=== PATIENT | female | born 1945 | race Caucasian/White ===

== ENCOUNTER 2016-08-12 16:40 | Emergency (ER) | payer OTHER ==
[~2016-08-12] VITALS: Ht 162.6 cm; Wt 99.6 kg
[~2016-08-12 16:40] MED LIST: ATEN25TA PO; OMEP20CA59 PO; WARF1TAB6 PO
[2016-08-12 16:46] VITALS: TEMP 36.7; Ht 162.6 cm; Wt 99.6 kg
--- NOTE | 2016-08-12 17:47 | DIAGNOSTIC IMAGING REPORT ---
HEAD CT NONCONTRAST CT DOSE: 537.48 mGy.cm HISTORY: Fall. Head laceration. eval for bleed TECHNIQUE: Multiaxial CT images of the head were performed without the use of intravenous contrast. Automated exposure control was utilized for this study. Comparison: None. Findings: The paranasal sinuses and mastoid air cells are clear. The calvarium and skull base are intact. There is no mass, hematoma, midline shift, acute infarct. White matter hypodensity is nonspecific but suggestive of microvascular ischemic change. The ventricles and sulci demonstrate mild age-related involutional changes. Right lateral scalp swelling with a small laceration. Impression: No acute intracranial abnormality. Right lateral scalp swelling with a small laceration. Electronically signed by: Dl Bey M.D. 08/12/2016 5:46 PM Dictated Date/Time: 08/12/2016 5:43 PM
[2016-08-12] MEDS ORDERED: LIDO/EPINEPHRINE/SOD BICARB 20 ML VIAL INFIL ONE (18:08)
[2016-08-12] MEDS ORDERED: XYLOCAINE 1%/SOD BICARB 20 ML VIAL INFIL ONE (18:15)
[2016-08-12 18:17] LABS: INR 1.8 (0.9-1.1); PROTHROMBIN TIME (PATIENT) 19.9 SECONDS (9.0-12.0)
[2016-08-12 18:25] LABS: HEMATOCRIT 40.6 % (37-47); MEAN CELL VOLUME 94.9 fL (80-100); MEAN CORPUSCULAR HEMOGLOBIN 33.2 pg (25-34); MEAN PLATELET VOLUME 10.9 fL (7.4-10.4); PLATELET COUNT 93 K/uL (130-400); RED BLOOD COUNT 4.28 M/uL (4.2-5.4); WHITE BLOOD COUNT 6.11 K/uL (4.8-10.8)
[2016-08-12 18:27] LABS: BASO % 0.3 %; BASO ABS # 0.02 K/uL (0-0.2); COMPLETE YES; EOS % 0.2 %; IG% 0.3 %; LYMPH % 16.7 %; LYMPH ABS # 1.02 K/uL (1.2-3.4); MONO % 10.6 %; NEUT % 71.9 %; PLT ESTIMATE DECREASED
--- NOTE | 2016-08-12 18:27 | EMERGENCY ROOM VISIT NOTE ---
ED Visit Note I was asked by Dr. Pierce to repair a laceration to the scalp. The laceration is approximately 5 cm in length. Using sterile technique the wound was cleaned with Betadine. The area was sterilely draped. 6 ml of 1% buffered lidocaine with epinephrine was used to anesthetize the scalp. Once the patient was numb, the wound was copiously irrigated under pressure with sterile saline. The wound was explored and there were no deep structures such as tendons, bone, or ligaments present. The laceration was repaired using 7 abby with the wound edges being well approximated. The patient tolerated the procedure well. The bleeding stopped.
[2016-08-12 19:42] VITALS: BP 161/74; PULSE 65; O2SAT 98
--- NOTE | 2016-08-12 23:24 | EMERGENCY ROOM VISIT NOTE ---
History Report prepared by Ashwini: Katharine Roman Under the Supervision of: Dr. Brian Dawson M.D. 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 She slipped on the ice on her front porch. She fell forward and hit the right side of her head on the porch railing. The patient denies LOC. She is currently complaining of a headache. She rates her pain as a 7/10. She has a laceration to her head that has been actively bleeding. 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 The patient denies any other injury from her fall. She denies nausea, vomiting, numbness, weakness, and dizziness. She denies hip pain, back pain, and neck pain. Her tetanus is up to date. Source of History: patient Onset: 1 hour PREFABRICATOR Position: other (global - fall) Symptom Intensity: 7/10 Headache Timing: other (episode) Associated Symptoms: + headache, No LOC, No back pain, No nausea, No neck pain, No numbness, No vomiting, No weakness Review of Systems See HPI for pertinent positives & negatives. A total of 10 systems reviewed and were otherwise negative. Past Medical & Surgical Medical Problems: (1) Hypertension Family History Hypertension Social History Smoking Status: Never Smoker Alcohol Use: none Drug Use: none Housing Status: lives with family Occupation Status: employed Current/Historical Medications Scheduled Atenolol (Tenormin), 25 MG PO DAILY Omeprazole (Prilosec), 20 MG PO DAILY Warfarin Sod (Jantoven), 3 MG PO DAILY Allergies Coded Allergies: Penicillins (Verified Allergy, Severe, UNKNOWN, 08/12/16) Aspirin (Verified Allergy, Intermediate, HIVES, 08/12/16) Uncoded Allergies: BEE STINGS (Allergy, Intermediate, ANAPHYLAXIS, 05/15/15) Physical Exam Vital Signs Date Time Temp Pulse Resp B/P Pulse Ox O2 Delivery O2 Flow Rate FiO2 08/12/16 19:42 65 16 161/74 98 Room Air 08/12/16 16:46 36.7 93 18 162/81 96 Room Air Physical Exam Constitutional: Vital signs reviewed. Eyes: Pupils are equal round reactive to light. Conjunctiva are noninjected. ENT: Pharynx is clear without erythema or exudate. Mucous membranes are moist. Neck supple without meningeal signs. No midline tenderness to cervical spine. Respiratory: Clear to auscultation bilaterally. Breath sounds are equal bilaterally. Cardiovascular: Regular rate and rhythm. No rubs or gallops. GI: Soft, nondistended and nontender. Bowel sounds are present. Musculoskeletal: No hip or extremity tenderness. Integumentary: 5 cm laceration to the right scalp with hematoma. Neurological: The patient is awake and alert. Cranial nerves II-XII are intact. Motor is 5 out of 5 all extremities. Sensation is intact to light touch all extremities. Normal speech. No pronator drift. Psychiatric: Normal affect. Medical Decision & Procedures ER Provider Diagnostic Interpretation: Radiology results as stated below per my review and the radiologist's interpretation: HEAD CT NONCONTRAST CT DOSE: 537.48 mGy.cm HISTORY: Fall. Head laceration. eval for bleed TECHNIQUE: Multiaxial CT images of the head were performed without the use of intravenous contrast. Automated exposure control was utilized for this study. Comparison: None. Findings: The paranasal sinuses and mastoid air cells are clear. The calvarium and skull base are intact. There is no mass, hematoma, midline shift, acute infarct. White matter hypodensity is nonspecific but suggestive of microvascular ischemic change. The ventricles and sulci demonstrate mild age-related involutional changes. Right lateral scalp swelling with a small laceration. Impression: No acute intracranial abnormality. Right lateral scalp swelling with a small laceration. Electronically signed by: Dl Bey M.D. 08/12/2016 5:46 PM Dictated Date/Time: 08/12/2016 5:43 PM Laboratory Results 08/12/16 17:58 Red Blood Count 4.28, Mean Corpuscular Volume 94.9, Mean Corpuscular Hemoglobin 33.2, Mean Corpuscular Hemoglobin Concent 35.0, Mean Platelet Volume 10.9, Neutrophils (%) (Auto) 71.9, Lymphocytes (%) (Auto) 16.7, Monocytes (%) (Auto) 10.6, Eosinophils (%) (Auto) 0.2, Basophils (%) (Auto) 0.3, Neutrophils # (Auto ) 4.39, Lymphocytes # (Auto) 1.02, Monocytes # (Auto) 0.65, Eosinophils # (Auto ) 0.01, Basophils # (Auto) 0.02 Test 08/12/16 17:58 White Blood Count 6.11 K/uL (4.8-10.8) Red Blood Count 4.28 M/uL (4.2-5.4) Hemoglobin 14.2 g/dL (12.0-16.0) Hematocrit 40.6 % (37-47) Mean Corpuscular Volume 94.9 fL (80-100) Mean Corpuscular Hemoglobin 33.2 pg (25-34) Mean Corpuscular Hemoglobin Concent 35.0 g/dl (32-36) Platelet Count 93 K/uL (130-400) Mean Platelet Volume 10.9 fL (7.4-10.4) Neutrophils (%) (Auto) 71.9 % Lymphocytes (%) (Auto) 16.7 % Monocytes (%) (Auto) 10.6 % Eosinophils (%) (Auto) 0.2 % Basophils (%) (Auto) 0.3 % Neutrophils # (Auto) 4.39 K/uL (1.4-6.5) Lymphocytes # (Auto) 1.02 K/uL (1.2-3.4) Monocytes # (Auto) 0.65 K/uL (0.11-0.59) Eosinophils # (Auto) 0.01 K/uL (0-0.5) Basophils # (Auto) 0.02 K/uL (0-0.2) RDW Standard Deviation 47.5 fL (36.4-46.3) RDW Coefficient of Variation 13.9 % (11.5-14.5) Immature Granulocyte % (Auto) 0.3 % Immature Granulocyte # (Auto) 0.02 K/uL (0.00-0.02) Platelet Estimate DECREASED Prothrombin Time 19.9 SECONDS (9.0-12.0) Prothromb Time International Ratio 1.8 (0.9-1.1) Laboratory results as reviewed by me. Medications Administered Medications (Trade) Dose Ordered Sig/Paolo Route Start Time Stop Time Status Last Admin Dose Admin Lidocaine/ Epinephrine (Buffered Xylocaine/ Epinephrine 1% Inj) 20 ml STK-MED ONCE INFIL 08/12/16 18:08 08/12/16 18:09 DC 08/12/16 18:08 20 ML ED Course 170: The patient was evaluated in room A10 . A complete history and physical exam was performed. 180: I updated the patient and her family on the results. 1814: Lidocaine HCl - At this time Rosalinda Pérez PA-C, repaired the patient' s laceration. Please see her note for further details. 183: I reassessed the patient at this time. She is feeling better and resting comfortably. I discussed the results and treatment plan with the patient. I answered all pertaining questions that she had. She expressed understanding and verbalized agreement. The patient will be discharged home. 1927: The patient got up for discharge and became dizzy. I reassessed her and sat her up in the bed. She is drinking Gatorade and feeling better. We will observe her for 10-15 minutes before discharge. Medical Decision This is a 70-year-old female on Coumadin presenting after a head injury. Differential diagnosis includes intracranial hemorrhage, skull fracture, contusion, concussion, scalp laceration. I did perform a limited focused review of portions of the patient's old chart on the electronic medical record. The patient has had no recent pertinent visits to this hospital. I did evaluate the patient as noted above. The patient had a mechanical fall leading to a head injury. She is neurologically intact. She has no other injuries other than her head injury. I did order a CT of the head. I did review the images myself as well as the radiology report as described above. There is no evidence of intracranial hemorrhage. Her laceration was repaired by JOSÉ Pérez. Please see her note for further details. I did order and review the patient's blood work as noted in the electronic medical record. Her INR is 1.8. Hemoglobin is stable. I did discuss the test results with the patient. She was given return instructions and head injury precautions. She was advised follow up with her doctor. She was discharged in good condition. She did feel lightheaded upon standing and so we did set her up in bed and she drank some Gatorade. She did feel better and was discharged home. Impression Primary Impression: Acute head injury Additional Impressions: Fall Anticoagulated on Coumadin Thrombocytopenia Scribe Attestation The scribe's documentation has been prepared under my direct and personally reviewed by me in its entirety. I confirm that the note above accurately reflects all work, treatment, procedures, and medical decision making performed by me. Departure Information Dispostion Home / Self-Care Referrals Keegan Felipe M.D. Forms HOME CARE DOCUMENTATION FORM, IMPORTANT VISIT INFORMATION Patient Instructions ED Head Injury Closed, ED Laceration Scalp Stitch Or Stap, My [facility], Thrombocytopenia Additional Instructions You have been examined and treated today on an emergency basis only. This is not a substitute for, or an effort to provide, complete comprehensive medical care. It is impossible to recognize and treat all injuries or illnesses in a single emergency department visit. It is therefore important that you follow up closely with your physician. Call as soon as possible for an appointment. Return for worsening symptoms or if you develop fever, vomiting, numbness or weakness to one side of your body, or any other concerning symptoms. Your abby need to be removed in 8-10 days. Your INR today was 1.8. Problem Qualifiers Primary Impression: Acute head injury Encounter type: initial encounter Qualified Codes: S09.90XA - Unspecified injury of head, initial encounter Additional Impressions: Fall Encounter type: initial encounter Qualified Codes: W19.XXXA - Unspecified fall, initial encounter
== END 2016-08-12 19:45 | disposition home or self-care (01) ==
LOC: EDBD 16:40 → C.EDA 16:40
DX: S01.01XA Laceration without foreign body of scalp, initial encounter (principal); W19.XXXA Unspecified fall, initial encounter; I10 Essential (primary) hypertension; Z79.01 Long term (current) use of anticoagulants

== ENCOUNTER 2020-07-14 00:29 | Inpatient (IN) ==
[2020-07-14] MEDS ORDERED: fentaNYL citrate 100 MCG/2 ML VIAL IV STA ×2 (00:59→03:55)
[2020-07-14 01:25] LABS: Albumin Level 2.3 gm/dl (3.4-5.0); BUN Creatinine Ratio 14.9 (10-20); Calcium 7.9 mg/dl (8.5-10.1); Creatinine Clr Calc Pharmacy 58.7 ml/min; Est GFR (African American) 69.4; Est GFR (Non-African American) 59.8
[2020-07-14 01:27] LABS: Hematocrit (blood only) 30.4 % (37-47); Hemoglobin 10.5 g/dL (12.0-16.0); Mean Corpuscular Hemoglobin 33.9 pg (25-34); Mean Corpuscular Hgb Conc 34.5 g/dL (32-36); Mean Corpuscular Volume 98.1 fL (80-100); Mean Platelet Volume 11.8 fL (7.4-10.4); Platelet Count 52 K/uL (130-400); RDW Coefficient of Variation 15.5 % (11.5-14.5); RDW Standard Deviation 55.4 fL (36.4-46.3); White Blood Count 4.63 K/uL (4.8-10.8)
[2020-07-14 01:30] LABS: Albumin Globulin Ratio 0.6 (0.9-2); Bilirubin,Total 4.5 mg/dl (0.2-1); Globulin 3.9 gm/dl (2.5-4.0); Total Protein 6.2 gm/dl (6.4-8.2)
[2020-07-14 01:43] LABS: Basophils # (auto) 0.02 K/uL (0-0.2); Basophils % (auto) 0.4 %; Eosinophils # (auto) 0.01 K/uL (0-0.5); Eosinophils % (auto) 0.2 %; Giant Platelets 1+; Immature Granulocytes # (auto) 0.04 K/uL (0.00-0.02); Immature Granulocytes % (auto) 0.9 %; Lymphocytes # (auto) 0.72 K/uL (1.2-3.4); Lymphocytes % (auto) 15.6 %; Monocytes # (auto) 0.52 K/uL (0.11-0.59); Monocytes % (auto) 11.2 %; Neutrophils # (auto) 3.32 K/uL (1.4-6.5); Neutrophils % (auto) 71.7 %; Platelet Estimate Decreased (Normal); RBC Morphology Unremarkable
[2020-07-14] MEDS ORDERED: IOVERSOL 100ml IV ONE (01:52)
--- NOTE | 2020-07-14 02:49 | Emergency Department Note ---
Impression & Plan Hematoma of left chest wall, Weakness, Multiple rib fractures ED Provider Note NAME: AUGUSTA DE ANDA AGE: 74 SEX: F ARRIVES VIA: Ambulance INFORMANT: Patient ED PROVIDER(S): Pepper Bennett DO CHIEF COMPLAINT: Left-sided back pain; weakness PLAN: Disposition: Admitted to the [facility] Condition: Good MEDICAL DECISION MAKING: This is a 74-year-old female patient who developed dehydration this past week as a result of Covid and suffered a fall. She was seen at [facility] yesterday. She suffered some trauma to the left side of her back and developed a large bruise in that area as result of being on Coumadin. She states that they did not do any imaging of that area while she was there she continues to have pain. Patient states that she felt somewhat better after being discharged from the hospital yesterday and started to do some laundry this evening at home but then her legs became weak and they gave out tonight. She did slump to the floor again tonight but did not injure herself again. The patient presents to the emergency department with weakness and persistent left-sided back pain. The patient has a large hematoma to the left side of her back with some active extravasation. She has also has multiple rib fractures on that side. There is no evidence of pneumothorax. The patient is on Coumadin and will require reversal since there is active extravasation. She is receiving IV vitamin K at this time. She is being evaluated by the [facility]. Triage Nursing notes reviewed and agree them. Additional history obtained from EMS Vital Signs: reviewed and unremarkable Differential diagnosis: Rib fractures, pneumothorax, hemothorax, intra-abdominal injury ER treatment provided: IV fentanyl ems 2; IV Zofran Diagnostics interpreted by me: ECG: Junctional rhythm at 56 with a prolonged QT at 505 ms. There is no ST segment elevation or signs of ischemia. There are no ectopic beats. Cardiac Monitoring: Junctional rhythm at 57 Laboratory studies: See below Imaging studies: As per stat read CT chest with contrast: There are acute nondisplaced fractures of the left fifth and sixth lateral ribs with a an acutely mildly displaced fracture of the lateral seventh rib. There is a large hematoma extending along the lateral aspect of the left chest wall measuring roughly 25 x 14 x 4 cm with serpiginous hyperdensity visualized within the posterior margin of the hematoma at the level of the ninth rib compatible with acute extravasation. Minimal dependent atelectasis within the left greater than right lower lobes posteriorly. No pneumothorax. Cholelithiasis. Hepatic steatosis with mild nodularity of the liver contour which raises the possibility of cirrhosis. Groundglass opacities in the periphery of the left upper lobe the largest of which measures approximately 1 cm. Consider follow-up per Fleischner criteria guidelines. Patchy minimal opacities in the periphery of the right lung likely inflammatory. CT abdomen pelvis with contrast: Large hematoma along the left posterior chest wall and extending into the distal to the left flank with an area of active extravasation in the posterior aspect of the hematoma. Mildly displaced left lateral seventh rib fracture is seen to better advantage on accompanying CT of the chest which is dictated separately. Heterogeneous liver with nodular liver contour suggesting cirrhosis. Colonic diverticulosis without evidence of acute diverticulitis. No free fluid within the abdomen or pelvis. Cholelithiasis without evidence of acute cholecystitis. HPI: 74/F arrives for evaluation of weakness. She was seen at [facility] yesterday. She suffered some trauma to the left side of her back and developed a large bruise in that area as result of being on Coumadin. She states that they did not do any imaging of that area while she was there she continues to have pain. Patient states that she felt somewhat better after being discharged from the hospital yesterday and started to do some laundry this evening at home but then her legs became weak and they gave out tonight. She did slump to the floor again tonight but did not injure herself again. The patient presents to the emergency department with weakness and persistent left- sided back pain. ROS: See above HPI for pertinent positives & negatives. A total of 10 systems reviewed and were otherwise negative. 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 Pupils are equal, round, and reactive to light. Extraocular eye muscles are intact and sclera are anicteric. Nose - moist nasal mucosa without evidence of trauma or discharge. Mouth - moist buccal mucosa with no trauma to the teeth or signs of malocclusion. Neck: The neck is supple and there is no pain to palpation over the posterior cervical spine and no obvious step-offs or deformities. There is no JVD or tracheal deviation. Chest: There are no signs of deformities, contusions or abrasions to the chest wall. There is no obvious crepitus or paradoxical chest rise. Heart: Bradycardic rate, and rhythm. There is a normal S1 and S2 with no murmurs, clicks, or gallops appreciated. Lungs: Clear to auscultation bilaterally with no wheezes, rales, or rhonchi. Abdomen: Soft, completely nontender, nondistended, with good bowel sounds. There is no sign of trauma such as contusions, abrasions or penetrations. There are no palpable pulsatile masses or hepatosplenomegaly. There is no guarding, rigidity, or rebound noted. Pelvis: Stable to rock and compression. Extremities: Patient has a large contusion over the left elbow. There are easily palpable peripheral pulses. Neuro: The patient is awake and alert and easily able to follow commands. Muscle strength is 5 out of 5 in all 4 extremities. Otherwise, neuro exam is unremarkable. Back: The entire thoracic, lumbar, and sacral spine were palpated. Patient has a very large hematoma and edema over the entire left back. The area is quite painful to palpation. ED COURSE: Times/Reassessments: 0035: Patient was evaluated in room a 10. A complete history and physical was performed. I did don complete PPE as the patient is known Covid positive. Order was placed for continuous cardiac monitoring. The patient was in a normal sinus rhythm at a rate of 89 She was given 25 mcg of IV fentanyl for pain. She went for CT scan of the chest, abdomen, and pelvis. I reviewed the laboratory and CT results with the patient. We did add an INR to the patient as she is on Coumadin. I did discuss the case with Dr. Matos who will care for the patient. INR did result was elevated he has ordered IV vitamin K for reversal as there was evidence of active extravasation on CT scan. The patient continues to complain of some pain to her the left side of her back as well as some nausea. She was given an additional 25 mcg of IV fentanyl along with 4 mg of IV Zofran. Pepper Bennett DO Past Med/Surg History Social History Smoking Status: Never smoker Hx Alcohol Use: Yes Alcohol type: wine Hx Substance Use: No Preferred Language: Bolivian Beliefs That Will Affect Care: None Current Living Situation: Family Feels Safe at Home: Yes Safety Concerns: Feels Safe At This Time Assistive Devices: None Allergies Allergies Allergy/AdvReac Type Severity Reaction Status Date / Time Penicillins Allergy Severe UNKNOWN Verified 07/14/20 01:32 aspirin Allergy Intermediate HIVES Verified 07/14/20 01:32 Home Meds Home Medications Medication Instructions Recorded Confirmed Centrum Multigummies Women 1 tab PO QAM 07/14/20 07/14/20 atenolol 25 mg PO QAM 07/14/20 07/14/20 [id number] 30 ml PO Q4 PRN 07/14/20 07/14/20 [Theraflu Cold-Cough] warfarin [Coumadin] 2 mg PO [id number] 07/14/20 07/14/20 warfarin [Coumadin] 3 mg PO WK 07/14/20 07/14/20 Results & Data (ED) Vital Signs Vital Signs - 24 hr 07/14/20 00:43 07/14/20 02:37 07/14/20 03:00 Temperature 37.0 C Temperature Source Oral Pulse Rate 58 L 53 L 53 L Pulse Rhythm Regular Pulse Strength Normal Respiratory Rate 18 17 12 Respiratory Effort / Characteristics Non-Labored Spontaneous Respiratory Depth Normal Blood Pressure 113/62 126/58 L 118/57 L Blood Pressure Mean 79 88 86 Blood Pressure Position Lying Pulse Oximetry 96 99 Oxygen Delivery Method Room Air Room Air Sepsis Recent Fever Within 48 Hours No Sepsis New/Unexplained Change in Mental Status No Sepsis Action Taken by Nursing No Action Required 07/14/20 04:00 07/14/20 04:01 07/14/20 04:02 Temperature Temperature Source Pulse Rate 59 L 57 L 56 L Pulse Rhythm Pulse Strength Respiratory Rate 20 15 16 Respiratory Effort / Characteristics Respiratory Depth Blood Pressure 96/57 L Blood Pressure Mean 89 Blood Pressure Position Pulse Oximetry Oxygen Delivery Method Sepsis Recent Fever Within 48 Hours Sepsis New/Unexplained Change in Mental Status Sepsis Action Taken by Nursing 07/14/20 05:00 Temperature Temperature Source Pulse Rate 58 L Pulse Rhythm Pulse Strength Respiratory Rate 18 Respiratory Effort / Characteristics Respiratory Depth Blood Pressure 99/52 L Blood Pressure Mean 70 Blood Pressure Position Pulse Oximetry 95 Oxygen Delivery Method Sepsis Recent Fever Within 48 Hours Sepsis New/Unexplained Change in Mental Status Sepsis Action Taken by Nursing Laboratory Data Result diagrams: 07/14/20 16:14 07/14/20 00:48 Lab Results 07/14/20 07/14/20 07/14/20 Range/Units 00:48 00:48 00:48 WBC 4.63 L (4.8-10.8) K/uL RBC 3.10 L (4.2-5.4) M/uL Hgb 10.5 L (12.0-16.0) g/dL Hct 30.4 L (37-47) % MCV 98.1 (80-100) fL MCH 33.9 (25-34) pg MCHC 34.5 (32-36) g/dL RDW Std Deviation 55.4 H (36.4-46.3) fL RDW Coeff of Martinez 15.5 H (11.5-14.5) % Plt Count 52 L (130-400) K/uL MPV 11.8 H (7.4-10.4) fL Immature Gran % (Auto) 0.9 % Neut % (Auto) 71.7 % Lymph % (Auto) 15.6 % Ocean % (Auto) 11.2 % Eos % (Auto) 0.2 % Baso % (Auto) 0.4 % Neut # (Auto) 3.32 (1.4-6.5) K/uL Lymph # (Auto) 0.72 L (1.2-3.4) K/uL Ocean # (Auto) 0.52 (0.11-0.59) K/uL Eos # (Auto) 0.01 (0-0.5) K/uL Baso # (Auto) 0.02 (0-0.2) K/uL Immature Gran # (Auto) 0.04 H (0.00-0.02) K/uL Platelet Estimate Decreased L (Normal) Giant Platelets 1+ RBC Morphology Unremarkable PT (9.0-12.0) Seconds INR (0.9-1.1) Sodium 138 (136-145) mmol/L Potassium 4.0 (3.5-5.1) mmol/L Chloride 106 (98-107) mmol/L Carbon Dioxide 24 (21-32) mmol/L Anion Gap 8.0 (3-11) BUN 14 (7-18) mg/dl Creatinine 0.95 (0.6-1.2) mg/dl Est Cr Clr Drug Dosing 58.7 ml/min Est GFR ( Amer) 69.4 Est GFR (Non-Af Amer) 59.8 BUN/Creatinine Ratio 14.9 (10-20) Glucose 142 H (70-99) mg/dl Estimat Average Glucose 103 mg/dl Hemoglobin A1c 5.2 (4.5-5.6) % Calcium 7.9 L (8.5-10.1) mg/dl Magnesium 1.8 (1.8-2.4) mg/dl Total Bilirubin 4.5 H (0.2-1) mg/dl AST 91 H (15-37) U/L ALT 43 (12-78) U/L Alkaline Phosphatase 135 H (45-117) U/L Total Protein 6.2 L (6.4-8.2) gm/dl Albumin 2.3 L (3.4-5.0) gm/dl Globulin 3.9 (2.5-4.0) gm/dl Albumin/Globulin Ratio 0.6 L (0.9-2) TSH 3.130 (0.300-4.500) uIu/ml Specimen Hemolysis Ethyl Alcohol mg/dL (0-3) mg/dl Blood Type Antibody Screen Crossmatch 07/14/20 07/14/20 07/14/20 Range/Units 03:52 04:07 05:25 WBC (4.8-10.8) K/uL RBC (4.2-5.4) M/uL Hgb (12.0-16.0) g/dL Hct (37-47) % MCV (80-100) fL MCH (25-34) pg MCHC (32-36) g/dL RDW Std Deviation (36.4-46.3) fL RDW Coeff of Martinez (11.5-14.5) % Plt Count (130-400) K/uL MPV (7.4-10.4) fL Immature Gran % (Auto) % Neut % (Auto) % Lymph % (Auto) % Ocean % (Auto) % Eos % (Auto) % Baso % (Auto) % Neut # (Auto) (1.4-6.5) K/uL Lymph # (Auto) (1.2-3.4) K/uL Ocean # (Auto) (0.11-0.59) K/uL Eos # (Auto) (0-0.5) K/uL Baso # (Auto) (0-0.2) K/uL Immature Gran # (Auto) (0.00-0.02) K/uL Platelet Estimate (Normal) Giant Platelets RBC Morphology PT 32.0 H (9.0-12.0) Seconds INR 3.2 H (0.9-1.1) Sodium (136-145) mmol/L Potassium (3.5-5.1) mmol/L Chloride (98-107) mmol/L Carbon Dioxide (21-32) mmol/L Anion Gap (3-11) BUN (7-18) mg/dl Creatinine (0.6-1.2) mg/dl Est Cr Clr Drug Dosing ml/min Est GFR ( Amer) Est GFR (Non-Af Amer) BUN/Creatinine Ratio (10-20) Glucose (70-99) mg/dl Estimat Average Glucose mg/dl Hemoglobin A1c (4.5-5.6) % Calcium (8.5-10.1) mg/dl Magnesium (1.8-2.4) mg/dl Total Bilirubin (0.2-1) mg/dl AST (15-37) U/L ALT (12-78) U/L Alkaline Phosphatase (45-117) U/L Total Protein (6.4-8.2) gm/dl Albumin (3.4-5.0) gm/dl Globulin (2.5-4.0) gm/dl Albumin/Globulin Ratio (0.9-2) TSH (0.300-4.500) uIu/ml Specimen Hemolysis Ethyl Alcohol mg/dL < 3.0 (0-3) mg/dl Blood Type O Positive Antibody Screen NEGATIVE Crossmatch See Detail 07/14/20 Range/Units 05:25 WBC (4.8-10.8) K/uL RBC (4.2-5.4) M/uL Hgb 8.5 L (12.0-16.0) g/dL Hct 24.8 L (37-47) % MCV (80-100) fL MCH (25-34) pg MCHC (32-36) g/dL RDW Std Deviation (36.4-46.3) fL RDW Coeff of Martinez (11.5-14.5) % Plt Count (130-400) K/uL MPV (7.4-10.4) fL Immature Gran % (Auto) % Neut % (Auto) % Lymph % (Auto) % Ocean % (Auto) % Eos % (Auto) % Baso % (Auto) % Neut # (Auto) (1.4-6.5) K/uL Lymph # (Auto) (1.2-3.4) K/uL Ocean # (Auto) (0.11-0.59) K/uL Eos # (Auto) (0-0.5) K/uL Baso # (Auto) (0-0.2) K/uL Immature Gran # (Auto) (0.00-0.02) K/uL Platelet Estimate (Normal) Giant Platelets RBC Morphology PT (9.0-12.0) Seconds INR (0.9-1.1) Sodium (136-145) mmol/L Potassium (3.5-5.1) mmol/L Chloride (98-107) mmol/L Carbon Dioxide (21-32) mmol/L Anion Gap (3-11) BUN (7-18) mg/dl Creatinine (0.6-1.2) mg/dl Est Cr Clr Drug Dosing ml/min Est GFR ( Amer) Est GFR (Non-Af Amer) BUN/Creatinine Ratio (10-20) Glucose (70-99) mg/dl Estimat Average Glucose mg/dl Hemoglobin A1c (4.5-5.6) % Calcium (8.5-10.1) mg/dl Magnesium (1.8-2.4) mg/dl Total Bilirubin (0.2-1) mg/dl AST (15-37) U/L ALT (12-78) U/L Alkaline Phosphatase (45-117) U/L Total Protein (6.4-8.2) gm/dl Albumin (3.4-5.0) gm/dl Globulin (2.5-4.0) gm/dl Albumin/Globulin Ratio (0.9-2) TSH (0.300-4.500) uIu/ml Specimen Hemolysis Ethyl Alcohol mg/dL (0-3) mg/dl Blood Type Antibody Screen Crossmatch Administered Medications Lidocaine (Lidocaine 5% 1 Patch) 1 patch TD QAM MIN Stop: 08/13/20 08:57 Last Admin: 07/14/20 09:51 Dose: 1 patch Documented by: [id number] Oxycodone HCl (Oxycodone Hcl Ir 5 Mg Tab (Immediate Release)) 5 - 10 mg PO QID PRN PRN Reason: Pain Stop: 07/28/20 08:57 Last Admin: 07/14/20 15:42 Dose: 10 mg Documented by: [id number] Discontinued Medications Acetaminophen (Acetaminophen 500 Mg Tab) 500 mg PO ONE ONE Stop: 07/14/20 13:23 Last Admin: 07/14/20 17:14 Dose: 500 mg Documented by: [id number] Acetaminophen (Acetaminophen 500 Mg Tab) Confirm Administered Dose 500 mg .ROUTE .STK-MED ONE Stop: 07/14/20 17:13 Last Admin: 07/14/20 17:52 Dose: Not Given Documented by: [id number] Fentanyl Citrate (Fentanyl Citrate 100 Mcg/2 Ml Vial) 25 mcg IV NOW STA Stop: 07/14/20 01:00 Last Admin: 07/14/20 01:51 Dose: 25 mcg Documented by: [id number] Fentanyl Citrate (Fentanyl Citrate 100 Mcg/2 Ml Vial) 25 mcg IV NOW STA Stop: 07/14/20 03:56 Last Admin: 07/14/20 04:33 Dose: 25 mcg Documented by: [id number] Sodium Chloride (Nss) 500 mls @ 999 mls/hr IV .Q31M ONE Stop: 07/14/20 03:40 Last Admin: 07/14/20 04:32 Dose: Not Given Documented by: [id number] Phytonadione 10 mg/ Sodium (Chloride) 51 mls @ 102 mls/hr IV ONE ONE Stop: 07/14/20 05:29 Last Infusion: 07/14/20 06:25 Dose: 0 mls/hr Documented by: [id number] Admin: 07/14/20 05:47 Dose: 102 mls/hr Documented by: [id number] Multivitamins 10 ml/ Thiamine HCl 100 mg/ Folic Acid 1 mg/Sodium Chloride 1,011.2 mls @ 500 mls/hr IV .Q2H2M ONE Stop: 07/14/20 06:31 Last Infusion: 07/14/20 09:57 Dose: 0 mls/hr Documented by: [id number] Admin: 07/14/20 06:26 Dose: 500 mls/hr Documented by: [id number] Ioversol (Ioversol 100ml) 100 ml IV ONCE ONE Stop: 07/14/20 01:53 Last Admin: 07/14/20 01:52 Dose: 91 ml Documented by: [id number] Morphine Sulfate (Morphine Sulfate 2 Mg/Ml Carp) 2 mg IV NOW STA Stop: 07/14/20 08:59 Last Admin: 07/14/20 09:51 Dose: 2 mg Documented by: [id number] Ondansetron HCl (Ondansetron Inj 2 Mg/Ml 2 Ml Vial) Confirm Administered Dose 4 mg .ROUTE .STK-MED ONE Stop: 07/14/20 04:27 Last Admin: 07/14/20 04:33 Dose: 4 mg Documented by: [id number] Phytonadione (Phytonadione 5 Mg Tab) 5 mg PO NOW STA Stop: 07/14/20 04:31 Last Admin: 07/14/20 06:32 Dose: Not Given Documented by: [id number] Phytonadione (Phytonadione 5 Mg Tab) Confirm Administered Dose 5 mg PO .STK-MED ONE Stop: 07/14/20 06:29 Last Admin: 07/14/20 06:32 Dose: Not Given Documented by: [id number] Discharge Plan Visit Data Chief Complaint: Back Injury/Pain Stated Complaint: +COVID/FALL/BACK PAIN ED Provider: Pepper Bennett Discharge Problem: Hematoma of left chest wall, Weakness, Multiple rib fractures Patient Disposition: Admitted As Inpatient Discharge Instructions Interventions: ED Discharge Assessment Last Done: 07/14/20 07:54 Discharge Problem: Hematoma of left chest wall Qualifiers: Encounter type: initial encounter Qualified Code(s): S20.212A - Contusion of left front wall of thorax, initial encounter Multiple rib fractures Qualifiers: Encounter type: initial encounter Fracture type: closed Laterality: left Qualified Code(s): S22.42XA - Multiple fractures of ribs, left side, initial encounter for closed fracture
[2020-07-14] MEDS ORDERED: SODIUM CHLORIDE 0.9% 500 ML IV ONE (03:10)
[2020-07-14 04:18] LABS: INR 3.2 (0.9-1.1)
[2020-07-14] MEDS ORDERED: ONDANSETRON INJ 2 MG/ML 2 ML VIAL ONE (04:26)
[2020-07-14] MEDS ORDERED: MULTI-VITAMIN INFUSION 10 ML, THIAMINE HCL 100 MG, FOLIC ACID 1 MG in SODIUM CHLORIDE 0... IV ONE (04:30)
[2020-07-14] MEDS ORDERED: PHYTONADIONE 5 MG TAB PO STA (04:30)
[2020-07-14 04:51] LABS: Magnesium 1.8 mg/dl (1.8-2.4); Thyroid Stimulating Hormone 3.13 uIu/ml (0.300-4.500)
[2020-07-14] MEDS ORDERED: PHYTONADIONE 10 MG in SODIUM CHLORIDE 0.9% 50 ML IV ONE (05:00)
[2020-07-14 05:38] LABS: Hematocrit (blood only) 24.8 % (37-47); Hemoglobin 8.5 g/dL (12.0-16.0)
[2020-07-14] MEDS ORDERED: SODIUM CHLORIDE 0.9% 250 ML IV PRN ×3 (05:51→17:35)
--- NOTE | 2020-07-14 06:00 | History & Physical Report ---
Date of Service July 14, 2020 Assessment & Plan (1) Anemia: Secondary to traumatic bleeding hematoma left chest wall, left flank Coumadin coagulopathy, history of portal vein thrombosis Patient presenting with hemodynamic instability Traumatic rib fractures COVID-19 illness, patient not septic hypertension, blood pressure on the lower side alcoholic cirrhosis, no overt decompensation hemolytic anemia as per records Hyperglycemia rule out DM PCU given borderline BP Hold Coumadin Vitamin K, FFP to reverse coagulopathy Serial H&H, transfuse PRBC if hemoglobin less than 7 and or for symptomatic anemia General Surgery consult RE chest wall/flank trauma (Case discussed with Dr. Baig over the phone.) Appropriate to hold home beta-alexx for now given hypotension Analgesia, Lidoderm patch trial for rib fracture pain Supportive management for COVID-19 illness RAMONITA S, DT precautions Check hemoglobin A1c PT OT eval DVT prophylaxis. SCDs while Coumadin on hold if INR less than 2 Full code Text document was generated using [employer] voice recognition software. It may contain grammatical or spelling errors. Kindly contact undersigned for clarification of any documentation item in question. History of Present Illness Chief Complaint: Recurrent falls, worsening left-sided back pain Primary Care Provider: Keegan Felipe MD History obtained from patient, family, and records. Medical history significant for hypertension, alcoholic cirrhosis, hemolytic anemia as per records, portal vein thrombosis on Coumadin. A week ago, patient had transient cough with epigastric pain, nausea, vomiting symptoms. No chest pain, no S OB. Poor appetite. Transient headache symptoms. Outpatient COVID-19 test positive. Cough symptoms resolved. Poor appetite with nausea vomiting symptoms. Could not keep anything down. 3 days ago patient had an episode of lightheadedness which caused her to fall on her back. Denies head trauma. Achy back/chest wall pain with bruising. Patient evaluated at [facility] but was sent home without imaging as per patient. Yesterday, patient felt her legs give out without headache, syncope. Worsening back pain. Patient brought to the ER for evaluation. 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 Allergies Allergy/AdvReac Type Severity Reaction Status Date / Time Penicillins Allergy Severe UNKNOWN Verified 07/14/20 01:32 aspirin Allergy Intermediate HIVES Verified 07/14/20 01:32 Home Medications Medication Instructions Recorded Confirmed Type Centrum Multigummies Women 1 tab PO QAM 07/14/20 07/14/20 History atenolol 25 mg PO QAM 07/14/20 07/14/20 History mfozbkcvk-PH-ykbffnueqnghl 30 ml PO Q4 PRN 07/14/20 07/14/20 History [Theraflu Cold-Cough] warfarin [Coumadin] 2 mg PO 6XWK 07/14/20 07/14/20 History warfarin [Coumadin] 3 mg PO WK 07/14/20 07/14/20 History Past Med/Surg History Social History Smoking Status: Never smoker Hx Alcohol Use: Yes Alcohol type: wine Hx Substance Use: No Preferred Language: Estonian Beliefs That Will Affect Care: None Current Living Situation: Family Feels Safe at Home: Yes Safety Concerns: Feels Safe At This Time Assistive Devices: None Review of Systems Review of Systems: As per HPI, all 10 systems reviewed, all other ROS negative Physical Exam Physical Exam: GENERAL: uncomfortable, obese, no respiratory distress SKIN: Pallor, warm HEENT: Pale palpebral conjunctivae, no ptosis, dry buccal mucosa NECK : Supple, short neck, no tenderness CHEST : Tender ecchymoses left chest wall extending to the flank, decreased breath sounds HEART : RRR, no obvious murmurs ABDOMEN: Some distention, nontender EXTREMITIES : Ecchymosis left elbow, minimal LE swelling, no other conspicuous deformities noted NEUROLOGIC : Coherent, no facial asymmetry, no other gross focality Results & Data Results & Data ([facility]) Vital Signs (Past 12 Hours) Vital Signs Temp Pulse Resp BP Pulse Ox 07/14/20 05:00 58 L 18 99/52 L 95 07/14/20 04:02 56 L 16 07/14/20 04:01 57 L 15 96/57 L 07/14/20 04:00 59 L 20 07/14/20 03:00 53 L 12 118/57 L 07/14/20 02:37 53 L 17 126/58 L 99 07/14/20 00:43 37.0 C 58 L 18 113/62 96 Laboratory Results Laboratory Results WBC 4.63 K/uL (4.8-10.8) L 07/14/20 00:48 RBC 3.10 M/uL (4.2-5.4) L 07/14/20 00:48 Hgb 8.5 g/dL (12.0-16.0) L 07/14/20 05:25 Hct 24.8 % (37-47) L 07/14/20 05:25 MCV 98.1 fL (80-100) 07/14/20 00:48 MCH 33.9 pg (25-34) 07/14/20 00:48 MCHC 34.5 g/dL (32-36) 07/14/20 00:48 RDW Std Deviation 55.4 fL (36.4-46.3) H 07/14/20 00:48 RDW Coeff of Martinez 15.5 % (11.5-14.5) H 07/14/20 00:48 Plt Count 52 K/uL (130-400) L 07/14/20 00:48 MPV 11.8 fL (7.4-10.4) H 07/14/20 00:48 Immature Gran % (Auto) 0.9 % 07/14/20 00:48 Neut % (Auto) 71.7 % 07/14/20 00:48 Lymph % (Auto) 15.6 % 07/14/20 00:48 [place] % (Auto) 11.2 % 07/14/20 00:48 Eos % (Auto) 0.2 % 07/14/20 00:48 Baso % (Auto) 0.4 % 07/14/20 00:48 Neut # (Auto) 3.32 K/uL (1.4-6.5) 07/14/20 00:48 Lymph # (Auto) 0.72 K/uL (1.2-3.4) L 07/14/20 00:48 [place] # (Auto) 0.52 K/uL (0.11-0.59) 07/14/20 00:48 Eos # (Auto) 0.01 K/uL (0-0.5) 07/14/20 00:48 Baso # (Auto) 0.02 K/uL (0-0.2) 07/14/20 00:48 Immature Gran # (Auto) 0.04 K/uL (0.00-0.02) H 07/14/20 00:48 Platelet Estimate Decreased (Normal) L 07/14/20 00:48 Giant Platelets 1+ 07/14/20 00:48 RBC Morphology Unremarkable 07/14/20 00:48 PT 32.0 Seconds (9.0-12.0) H 07/14/20 03:52 INR 3.2 (0.9-1.1) H 07/14/20 03:52 Sodium 138 mmol/L (136-145) 07/14/20 00:48 Potassium 4.0 mmol/L (3.5-5.1) 07/14/20 00:48 Chloride 106 mmol/L (98-107) 07/14/20 00:48 Carbon Dioxide 24 mmol/L (21-32) 07/14/20 00:48 Anion Gap 8.0 (3-11) 07/14/20 00:48 BUN 14 mg/dl (7-18) 07/14/20 00:48 Creatinine 0.95 mg/dl (0.6-1.2) 07/14/20 00:48 Est Cr Clr Drug Dosing 58.7 ml/min 07/14/20 00:48 Est GFR ( Amer) 69.4 07/14/20 00:48 Est GFR (Non-Af Amer) 59.8 07/14/20 00:48 BUN/Creatinine Ratio 14.9 (10-20) 07/14/20 00:48 Glucose 142 mg/dl (70-99) H 07/14/20 00:48 Calcium 7.9 mg/dl (8.5-10.1) L 07/14/20 00:48 Magnesium 1.8 mg/dl (1.8-2.4) 07/14/20 00:48 Total Bilirubin 4.5 mg/dl (0.2-1) H 07/14/20 00:48 AST 91 U/L (15-37) H 07/14/20 00:48 ALT 43 U/L (12-78) 07/14/20 00:48 Alkaline Phosphatase 135 U/L (45-117) H 07/14/20 00:48 Total Protein 6.2 gm/dl (6.4-8.2) L 07/14/20 00:48 Albumin 2.3 gm/dl (3.4-5.0) L 07/14/20 00:48 Globulin 3.9 gm/dl (2.5-4.0) 07/14/20 00:48 Albumin/Globulin Ratio 0.6 (0.9-2) L 07/14/20 00:48 TSH 3.130 uIu/ml (0.300-4.500) 07/14/20 00:48 Specimen Hemolysis 07/14/20 00:48 Ethyl Alcohol mg/dL < 3.0 mg/dl (0-3) 07/14/20 04:[address] head initial read: No acute infarct or intracranial hemorrhage. Chronic periventricular ischemic demyelination changes seen new small vessel disease. CT chest initial read: Acute nondisplaced fracture left fifth and sixth lateral ribs with acute mildly displaced fracture lateral seventh rib. Large hematoma extending along lateral aspect of left chest wall measuring 25 x 14 x 4 cm with serpiginous hyperdensity visualized within the posterior margin of the hematoma at the level of the ninth rib compatible with active extravasation. Minimal dependent atelectasis left greater than the right lower lobes. No pneumothorax. Cholelithiasis. Hepatic steatosis with mild nodularity liver contour which raises possibility of cirrhosis. Groundglass opacities in the periphery of the left upper lobe largest of which approximately 1 cm. Patchy minimal opacities periphery right lung likely inflammatory. CT abdomen pelvis initial read: Large hematoma left posterior chest wall extending distally to left flank with area of active extravasation within the posterior aspect of the hematoma. Mildly displaced left lateral seventh rib fracture is seen to better advantage on accompanying chest CT which is dictated separately. Cirrhosis. Colonic diverticulosis. Cholelithiasis. EKG as per my interpretation rate 55, junctional bradycardia, T wave flattening limb leads, low voltage
[2020-07-14] MEDS ORDERED: PHYTONADIONE 5 MG TAB PO ONE (06:28)
--- NOTE | 2020-07-14 07:10 | CT Scan Report ---
CT OF THE CHEST WITH IV CONTRAST CLINICAL HISTORY: Fall. COMPARISON STUDY: No previous studies for comparison. TECHNIQUE: Following IV administration of 91 mL of Optiray-320, helical axial images of the chest we re obtained. Sagittal and coronal reconstructions were viewed as well as maximal intensity projectio ns on an independent 3-D workstation. Automated exposure control was utilized for the study. A dose lowering technique was utilized adhering to the principles of ALARA. CT DOSE: 1644.70 mGy.cm FINDINGS: There is no evidence for traumatic injury to the thoracic aorta. There is no mediastinal h ematoma. Mild cardiomegaly is noted. There is no pericardial effusion. No pneumothorax is present. Th ere is a trace left pleural effusion. Multifocal groundglass opacities within lungs measure up to 1.4 cm. Central airways are patent. Note is made of healing fractures of the lateral left fifth and sixt h ribs. There is an acute mildly displaced fracture of the lateral left seventh rib. Note is made of a large left posterolateral chest wall hematoma that measures approximately 25 x 16.3 x 4.5 cm. This contains a hypodense focus consistent with active extravasation within the posterior aspect of the he matoma. This focus measures approximately 4 cm in length. No additional foci of active extravasation are noted. The liver is cirrhotic. Varices are noted. There are gallstones within the gallbladder. Mi ld splenomegaly is noted. The abdomen and pelvis will be reported separately. IMPRESSION: 1. Large hematoma within the left posterolateral chest wall that measures approximately 25 x 16.3 x 4 .5 cm. This contains a 4 cm focus of active extravasation. 2. Acute mildly displaced fracture of the lateral left seventh rib. No pneumothorax. Trace left pleur al effusion. Old left fifth and sixth rib fractures. 3. Multifocal groundglass opacities within the lungs. These are likely infectious or inflammatory. Ho wever, a follow-up chest CT in 3 months to ensure resolution is recommended. 4. Cirrhosis. Manifestations of portal hypertension. 5. Cholelithiasis. ACT 112: Negative or not required by law. Electronically signed by: Giles Brown M.D. 07/14/2020 7:09 AM
--- NOTE | 2020-07-14 07:17 | CT Scan Report ---
CT SCAN OF THE BRAIN WITHOUT IV CONTRAST CLINICAL HISTORY: Dizziness. Head injury. COMPARISON STUDY: CT of the brain dated 08/12/2016. TECHNIQUE: Unenhanced axial CT scan of the brain is performed from the vertex to the skull base. A do se lowering technique was utilized adhering to the principles of ALARA. CT DOSE: 537.48 mGy.cm FINDINGS: Brain parenchyma: There is an acute to subacute subdural hemorrhage identified along the right convex ity. This is best seen on image #23. More hyperdense blood products are seen on image #16. This measu res up to 9 mm. There is minimal mass effect on the subjacent parenchyma. There are age-related invol utional changes noting moderate to advanced confluent subcortical and periventricular microangiopath ic change. There is no parenchymal hematoma, midline shift, or evidence of acute territorial ischemia by CT criteria. Gillespie-white matter differentiation is preserved. No extra-axial fluid collection is s een. Ventricles, sulci, cisterns: Prominent secondary to involutional change. Intracranial vasculature: There is atherosclerotic calcification of the cavernous carotid and vertebr al arteries. Calvarium: The skeletal structures are osteopenic. There is no depressed calvarial fracture. Sinuses and mastoids: There is trace mucosal thickening within the ethmoid sinuses. The remaining vis ualized paranasal sinuses are clear. The mastoid air cells are well pneumatized. Orbits: The bony orbits are grossly intact. IMPRESSION: 1. There is a small acute to subacute subdural hemorrhage along the right convexity with minimal mass effect on the subjacent cortex. 2. There is no parenchymal hematoma or evidence of acute territorial ischemia by CT criteria. ACT 112: Negative or not required by law. Electronically signed by: Sj Noriega M.D. 07/14/2020 7:16 AM
[2020-07-14 07:28] LABS: Estimated Average Glucose 103 mg/dl; Hemoglobin A1C 5.2 % (4.5-5.6)
--- NOTE | 2020-07-14 08:29 | CT Scan Report ---
CT SCAN OF THE ABDOMEN AND PELVIS WITH IV CONTRAST CLINICAL HISTORY: Fall. COMPARISON STUDY: Abdominal CT dated 01/08/2012. TECHNIQUE: Following the IV administration of 91 cc of Optiray 320, CT scan of the abdomen and pelvi s is performed from the lung bases to the proximal femora. Images are reviewed in the axial, sagittal , and coronal planes. IV contrast was administered without complication. A dose lowering technique wa s utilized adhering to the principles of ALARA. FINDINGS: Soft tissues: There is a large soft tissue hematoma identified in the lateral left lower chest wall w ith foci of active extravasation seen on image #41. This measures approximately 15.5 x 5 cm in axial dimension. Soft tissue contusion extends into the left flank. Lung bases: The heart is normal in size and without pericardial effusion. The lung bases are clear no ting dependent atelectasis. There is no basilar pneumothorax. There is a small hiatal hernia. Liver: The contrast-enhanced liver is cirrhotic in morphology and markedly heterogeneous in attenuati on with micronodular change. There is nodularity of the surface contour and hypertrophy of the left l obe. There is no intrahepatic biliary ductal dilatation. The hepatic veins and portal veins are paten t. Gallbladder: There are calcified gallstones with no CT evidence of acute cholecystitis. Spleen: Normal in size and attenuation. There are perisplenic varices with evidence of a splenorenal shunt. Pancreas: Moderately atrophic and grossly unremarkable. Adrenal glands: Unremarkable. Kidneys: The contrast enhanced kidneys demonstrate cortical atrophy and are without hydronephrosis. T he kidneys enhance symmetrically. Abdominal vasculature: The abdominal aorta is normal in course and caliber noting moderate atheroscle rotic calcification. Bowel: There is moderate sigmoid diverticulosis without CT evidence of acute diverticulitis. No bowel obstruction is identified. The appendix is well-visualized and normal. Peritoneum: There is no intraperitoneal free air or abdominal ascites. There is a fat-containing umbi lical hernia. Lymphadenopathy: None. Pelvic viscera: The bladder is decompressed and not well evaluated. The uterus is surgically absent. No adnexal lesion is seen. Skeletal structures: The skeletal structures are osteopenic. There is moderate to advanced lumbosacra l spondylosis as well as scoliosis. No lytic or blastic lesions are seen. A left lateral 7th rib frac ture is noted. IMPRESSION: 1. There is a large hematoma identified in the lower left lateral chest wall with foci of active extr avasation. 2. A left 7th rib fracture is noted. See report of chest CT performed concurrently for detailed intra thoracic findings. 3. There is no evidence of solid organ injury in the abdomen or pelvis. 4. The liver is cirrhotic in morphology and heterogeneous in attenuation with micronodular change. 5. There are perisplenic varices with evidence of a splenorenal shunt. This indicates portal hyperten deb. 6. Cholelithiasis. 7. Colonic diverticulosis without CT evidence of acute diverticulitis. 8. Additional findings as above. ACT 112: Negative or not required by law. Electronically signed by: Sj Noriega M.D. 07/14/2020 8:27 AM
[2020-07-14] MEDS ORDERED: PROMETHAZINE HCL 12.5 MG in SODIUM CHLORIDE 0.9% 50 ML IV PRN (08:58)
[2020-07-14] MEDS ORDERED: MoRPHine SULFATE 2 MG/ML CARP IV STA (08:58)
[2020-07-14] MEDS ORDERED: oxyCODONE HCL IR 5 MG TAB (IMMEDIATE RELEASE) PO PRN (08:58)
[2020-07-14] MEDS ORDERED: ATIVAN IV ALCOHOL WITHDRAWL IV PRN (08:58)
[2020-07-14] MEDS ORDERED: ACETAMINOPHEN 325 MG TAB PO PRN (08:58)
[2020-07-14] MEDS ORDERED: LORazepam 2 MG/4 ML VIAL IV PRN (08:58)
[2020-07-14] MEDS ORDERED: LORazepam 1 MG/2 ML VIAL IV PRN (08:58)
[2020-07-14] MEDS ORDERED: LORazepam 3 MG/6 ML VIAL IV PRN (08:58)
[2020-07-14] MEDS: LIDOCAINE 5% 1 PATCH TD SCH (09:51)
--- NOTE | 2020-07-14 09:57 | Electrocardiogram Report ---
Test Reason : Blood Pressure : / mmHG Vent. Rate : 056 BPM Atrial Rate : 049 BPM P-R Int : 000 ms QRS Dur : 084 ms QT Int : 524 ms P-R-T Axes : 000 -13 039 degrees QTc Int : 505 ms Sinus rhythm with short OK Low voltage QRS Prolonged QT Abnormal ECG When compared with ECG of 15-MAY-2015 00:54, T wave amplitude has decreased in Lateral leads Confirmed by Meng Farias ([id number]) on 07/14/2020 9:56:36 AM Referred By: REFERRED SELF Confirmed By:Meng Farias
--- NOTE | 2020-07-14 12:13 | Surgery Consultation ---
Date of Consultation July 14, 2020 Assessment & Plan (1) Hematoma of left chest wall: pt is a 74 year-old female who was admitted to hospital for fall, left chest wall hematoma, IMP: left chest wall hematoma, no surgery indication now, conservative treatment, control pain, possible resume coumadin once the signs active bleeding stop after 2-3 days, sign off today, please call us with any questions or change, thanks Present on Admission?: Yes History of Present Illness Attending Physician: Emeka Bashir MD History of Present Illness Chief Complaint: Recurrent falls, worsening left-sided back pain Primary Care Provider: Keegan Felipe MD History obtained from patient, family, and records. Medical history significant for hypertension, alcoholic cirrhosis, hemolytic anemia as per records, portal vein thrombosis on Coumadin. A week ago, patient had transient cough with epigastric pain, nausea, vomiting symptoms. No chest pain, no S OB. Poor appetite. Transient headache symptoms. Outpatient COVID-19 test positive. Cough symptoms resolved. Poor appetite with nausea vomiting symptoms. Could not keep anything down. 3 days ago patient had an episode of lightheadedness which caused her to fall on her back. Denies head trauma. Achy back/chest wall pain with bruising. Patient evaluated at [place] [facility] but was sent home without imaging as per patient. Yesterday, patient felt her legs give out without headache, syncope. Worsening back pain. Patient brought to the ER for evaluation. consult left chest wall hematoma, I reviewed pt's H/P, labs, CT scan with pt, pt is stable, mild left chest wall pain, no dizziness, Medical History as above Personal/Social history : Allergies Allergy/AdvReac Type Severity Reaction Status Date / Time Penicillins Allergy Severe UNKNOWN Verified 07/14/20 01:32 aspirin Allergy Intermediate HIVES Verified 07/14/20 01:32 Home Medications Medication Instructions Recorded Confirmed Type Centrum Multigummies Women 1 tab PO QAM 07/14/20 07/14/20 History atenolol 25 mg PO QAM 07/14/20 07/14/20 History hemhxrczf-DC-yusmwjdhmqgqg 30 ml PO Q4 PRN 07/14/20 07/14/20 History [Theraflu Cold-Cough] warfarin [Coumadin] 2 mg PO 6XWK 07/14/20 07/14/20 History warfarin [Coumadin] 3 mg PO WK 07/14/20 07/14/20 History Past Med/Surg History Social History Smoking Status: Never smoker Hx Alcohol Use: Yes Alcohol type: wine Hx Substance Use: No Preferred Language: Czech Beliefs That Will Affect Care: None Current Living Situation: Family Feels Safe at Home: Yes Safety Concerns: Feels Safe At This Time Assistive Devices: None Results & Data Results & Data ([facility]) Vital Signs (Past 12 Hours) Vital Signs Temp Pulse Resp BP Pulse Ox 07/14/20 05:00 58 L 18 99/52 L 95 07/14/20 04:02 56 L 16 07/14/20 04:01 57 L 15 96/57 L 07/14/20 04:00 59 L 20 07/14/20 03:00 53 L 12 118/57 L 07/14/20 02:37 53 L 17 126/58 L 99 07/14/20 00:43 37.0 C 58 L 18 113/62 96 Laboratory Results Laboratory Results WBC 4.63 K/uL (4.8-10.8) L 07/14/20 00:48 RBC 3.10 M/uL (4.2-5.4) L 07/14/20 00:48 Hgb 8.5 g/dL (12.0-16.0) L 07/14/20 05:25 Hct 24.8 % (37-47) L 07/14/20 05:25 MCV 98.1 fL (80-100) 07/14/20 00:48 MCH 33.9 pg (25-34) 07/14/20 00:48 MCHC 34.5 g/dL (32-36) 07/14/20 00:48 RDW Std Deviation 55.4 fL (36.4-46.3) H 07/14/20 00:48 RDW Coeff of Martinez 15.5 % (11.5-14.5) H 07/14/20 00:48 Plt Count 52 K/uL (130-400) L 07/14/20 00:48 MPV 11.8 fL (7.4-10.4) H 07/14/20 00:48 Immature Gran % (Auto) 0.9 % 07/14/20 00:48 Neut % (Auto) 71.7 % 07/14/20 00:48 Lymph % (Auto) 15.6 % 07/14/20 00:48 [place] % (Auto) 11.2 % 07/14/20 00:48 Eos % (Auto) 0.2 % 07/14/20 00:48 Baso % (Auto) 0.4 % 07/14/20 00:48 Neut # (Auto) 3.32 K/uL (1.4-6.5) 07/14/20 00:48 Lymph # (Auto) 0.72 K/uL (1.2-3.4) L 07/14/20 00:48 [place] # (Auto) 0.52 K/uL (0.11-0.59) 07/14/20 00:48 Eos # (Auto) 0.01 K/uL (0-0.5) 07/14/20 00:48 Baso # (Auto) 0.02 K/uL (0-0.2) 07/14/20 00:48 Immature Gran # (Auto) 0.04 K/uL (0.00-0.02) H 07/14/20 00:48 Platelet Estimate Decreased (Normal) L 07/14/20 00:48 Giant Platelets 1+ 07/14/20 00:48 RBC Morphology Unremarkable 07/14/20 00:48 PT 32.0 Seconds (9.0-12.0) H 07/14/20 03:52 INR 3.2 (0.9-1.1) H 07/14/20 03:52 Sodium 138 mmol/L (136-145) 07/14/20 00:48 Potassium 4.0 mmol/L (3.5-5.1) 07/14/20 00:48 Chloride 106 mmol/L (98-107) 07/14/20 00:48 Carbon Dioxide 24 mmol/L (21-32) 07/14/20 00:48 Anion Gap 8.0 (3-11) 07/14/20 00:48 BUN 14 mg/dl (7-18) 07/14/20 00:48 Creatinine 0.95 mg/dl (0.6-1.2) 07/14/20 00:48 Est Cr Clr Drug Dosing 58.7 ml/min 07/14/20 00:48 Est GFR ( Amer) 69.4 07/14/20 00:48 Est GFR (Non-Af Amer) 59.8 07/14/20 00:48 BUN/Creatinine Ratio 14.9 (10-20) 07/14/20 00:48 Glucose 142 mg/dl (70-99) H 07/14/20 00:48 Calcium 7.9 mg/dl (8.5-10.1) L 07/14/20 00:48 Magnesium 1.8 mg/dl (1.8-2.4) 07/14/20 00:48 Total Bilirubin 4.5 mg/dl (0.2-1) H 07/14/20 00:48 AST 91 U/L (15-37) H 07/14/20 00:48 ALT 43 U/L (12-78) 07/14/20 00:48 Alkaline Phosphatase 135 U/L (45-117) H 07/14/20 00:48 Total Protein 6.2 gm/dl (6.4-8.2) L 07/14/20 00:48 Albumin 2.3 gm/dl (3.4-5.0) L 07/14/20 00:48 Globulin 3.9 gm/dl (2.5-4.0) 07/14/20 00:48 Albumin/Globulin Ratio 0.6 (0.9-2) L 07/14/20 00:48 TSH 3.130 uIu/ml (0.300-4.500) 07/14/20 00:48 Specimen Hemolysis 07/14/20 00:48 Ethyl Alcohol mg/dL < 3.0 mg/dl (0-3) 07/14/20 04:07 Allergies Allergy/AdvReac Type Severity Reaction Status Date / Time Penicillins Allergy Severe UNKNOWN Verified 07/14/20 01:32 aspirin Allergy Intermediate HIVES Verified 07/14/20 01:32 Home Medications Medication Instructions Recorded Confirmed Type Centrum Multigummies Women 1 tab PO QAM 07/14/20 07/14/20 History atenolol 25 mg PO QAM 07/14/20 07/14/20 History jrncpiiyh-QY-avxwlkanxgvba 30 ml PO Q4 PRN 07/14/20 07/14/20 History [Theraflu Cold-Cough] warfarin [Coumadin] 2 mg PO 6XWK 07/14/20 07/14/20 History warfarin [Coumadin] 3 mg PO WK 07/14/20 07/14/20 History Patient History Social History Smoking Status: Never smoker Hx Alcohol Use: Yes Alcohol type: wine Hx Substance Use: No Preferred Language: Czech Beliefs That Will Affect Care: None Current Living Situation: Family Feels Safe at Home: Yes Safety Concerns: Feels Safe At This Time Assistive Devices: None Review of Systems Review of Systems: All systems reviewed & are unremarkable except as noted in HPI & below Constitutional: as per Subjective / HPI fall, Eyes: as per Subjective / HPI Ear, Nose, Mouth, Throat: as per Subjective / HPI Cardiovascular: as per Subjective / HPI Additional Comments: HTN, multiple rib fractures, COVID - 19 + Gastrointestinal: as per Subjective / HPI Genitourinary: as per Subjective / HPI Musculoskeletal: as per Subjective / HPI Integumentary: as per Subjective / HPI Neurologic: as per Subjective / HPI acute head injury Psychiatric: as per Subjective / HPI Endocrine: as per Subjective / HPI Hematologic / Lymphatic: as per Subjective / HPI anticoagulated on coumadin Physical Exam Constitutional: WD/WN, vitals as above well developed and well nourished Eyes: PERRL, conjunctivae normal, anicteric sclerae ENMT: external ear and nose normal, oropharynx normal Neck: trachea midline, no thyromegaly Respiratory: normal respiratory effort, lungs clear to auscultation left chest wall hematoma, some tenderness, no redness, Cardiovascular: Heart Sounds: normal S1 and normal S2 Chest (Breasts): Additional Comments: left chest wall hematoma, no redness, Gastrointestinal (Abdomen): Inspection/Auscultation: + abdominal wall ecchymosis Musculoskeletal: no cyanosis or clubbing, extremities motor strength 5/5 Skin: no rashes, warm and dry Neurologic: patellar DTR's 2+ bilat, sensation intact Psychiatric: Orientation: alert and oriented x 3 Results & Data ([facility]) Vital Signs (Past 12 Hours) Vital Signs Temp Pulse Pulse Resp BP BP Pulse Ox 07/14/20 11:56 36.8 C 72 18 100/57 L 95 07/14/20 09:12 36.4 C L 62 18 110/69 97 07/14/20 08:58 36.4 C L 61 18 117/54 L 97 07/14/20 07:54 36.5 C 62 16 110/69 96 07/14/20 07:14 60 16 110/69 96 07/14/20 05:00 58 L 18 99/52 L 95 07/14/20 04:02 56 L 16 07/14/20 04:01 57 L 15 96/57 L 07/14/20 04:00 59 L 20 07/14/20 03:00 53 L 12 118/57 L 07/14/20 02:37 53 L 17 126/58 L 99 07/14/20 00:43 37.0 C 58 L 18 113/62 96 Laboratory Results Abnormal lab results 07/14/20 07/14/20 07/14/20 Range/Units 00:48 00:48 03:52 WBC 4.63 L (4.8-10.8) K/uL RBC 3.10 L (4.2-5.4) M/uL Hgb 10.5 L (12.0-16.0) g/dL Hct 30.4 L (37-47) % RDW Std Deviation 55.4 H (36.4-46.3) fL RDW Coeff of Martinez 15.5 H (11.5-14.5) % Plt Count 52 L (130-400) K/uL MPV 11.8 H (7.4-10.4) fL Lymph # (Auto) 0.72 L (1.2-3.4) K/uL Immature Gran # (Auto) 0.04 H (0.00-0.02) K/uL Platelet Estimate Decreased L (Normal) PT 32.0 H (9.0-12.0) Seconds INR 3.2 H (0.9-1.1) Glucose 142 H (70-99) mg/dl Calcium 7.9 L (8.5-10.1) mg/dl Total Bilirubin 4.5 H (0.2-1) mg/dl AST 91 H (15-37) U/L Alkaline Phosphatase 135 H (45-117) U/L Total Protein 6.2 L (6.4-8.2) gm/dl Albumin 2.3 L (3.4-5.0) gm/dl Albumin/Globulin Ratio 0.6 L (0.9-2) 07/14/20 Range/Units 05:25 WBC (4.8-10.8) K/uL RBC (4.2-5.4) M/uL Hgb 8.5 L (12.0-16.0) g/dL Hct 24.8 L (37-47) % RDW Std Deviation (36.4-46.3) fL RDW Coeff of Martinez (11.5-14.5) % Plt Count (130-400) K/uL MPV (7.4-10.4) fL Lymph # (Auto) (1.2-3.4) K/uL Immature Gran # (Auto) (0.00-0.02) K/uL Platelet Estimate (Normal) PT (9.0-12.0) Seconds INR (0.9-1.1) Glucose (70-99) mg/dl Calcium (8.5-10.1) mg/dl Total Bilirubin (0.2-1) mg/dl AST (15-37) U/L Alkaline Phosphatase (45-117) U/L Total Protein (6.4-8.2) gm/dl Albumin (3.4-5.0) gm/dl Albumin/Globulin Ratio (0.9-2) (1) Hematoma of left chest wall Encounter type: initial encounter Qualified Code(s): S20.212A - Contusion of left front wall of thorax, initial encounter
[2020-07-14 12:21] LABS: INR 2.2 (0.9-1.1); Prothrombin Time 22.4 Seconds (9.0-12.0)
[2020-07-14 12:29] LABS: Hematocrit (blood only) 20.7 % (37-47); Mean Corpuscular Hemoglobin 33.3 pg (25-34); Mean Corpuscular Hgb Conc 33.8 g/dL (32-36); Mean Corpuscular Volume 98.6 fL (80-100); Mean Platelet Volume 11.7 fL (7.4-10.4); Nucleated RBC # (auto) 0.02 K/uL (0-0); Nucleated RBC % (auto) 0.6 %; Platelet Count 42 K/uL (130-400); RDW Coefficient of Variation 15.9 % (11.5-14.5); RDW Standard Deviation 56.9 fL (36.4-46.3)
[2020-07-14 13:03] LABS: Immature Granulocytes # (auto) 0.02 K/uL (0.00-0.02); Immature Granulocytes % (auto) 0.5 %; Lymphocytes # (auto) 0.63 K/uL (1.2-3.4); Lymphocytes % (auto) 15.4 %; Monocytes # (auto) 0.44 K/uL (0.11-0.59); Monocytes % (auto) 10.7 %; Neutrophils # (auto) 3.01 K/uL (1.4-6.5); Neutrophils % (auto) 73.4 %; RBC Morphology Unremarkable
[2020-07-14] MEDS ORDERED: ACETAMINOPHEN 500 MG TAB PO ONE (13:22)
[2020-07-14 14:28] LABS: Bacteria Urine Automated 4+ (Negative); Bilirubin Urine Negative (Negative); Blood Urine 1+ (Negative); Color Urine Dark Yellow; Epithelial Cell Urine Auto >30 /lpf (0-5); Glucose Urine UA Negative (Negative); Ketones Urine Negative (Negative); Leukocyte Esterase Urine 2+ (Negative); Nitrite Urine Positive (Negative); Protein Urine Trace (Negative); Specific Gravity Urine > 1.045 (1.000-1.030); Urobilinogen Urine Positive (Negative); WBC Urine Automated >30 /hpf (0-5)
[2020-07-14 14:34] LABS: Appearance Urine Slightly Cloudy (Clear)
[2020-07-14 16:34] LABS: INR 1.8 (0.9-1.1); Prothrombin Time 18.6 Seconds (9.0-12.0)
[2020-07-14 16:39] LABS: Hematocrit (blood only) 19.4 % (37-47); Hemoglobin 6.6 g/dL (12.0-16.0); Mean Corpuscular Hemoglobin 33.5 pg (25-34); Mean Corpuscular Volume 98.5 fL (80-100); Nucleated RBC # (auto) 0.03 K/uL (0-0); Nucleated RBC % (auto) 0.5 %; Platelet Count 48 K/uL (130-400); Red Blood Count 1.97 M/uL (4.2-5.4); White Blood Count 5.72 K/uL (4.8-10.8)
[2020-07-14] MEDS ORDERED: ACETAMINOPHEN 500 MG TAB ONE (17:12)
[2020-07-14 17:27] LABS: Basophils # (auto) 0.01 K/uL (0-0.2); Basophils % (auto) 0.2 %; Immature Granulocytes # (auto) 0.03 K/uL (0.00-0.02); Immature Granulocytes % (auto) 0.5 %; Lymphocytes # (auto) 0.91 K/uL (1.2-3.4); Lymphocytes % (auto) 15.9 %; Monocytes # (auto) 0.79 K/uL (0.11-0.59); Monocytes % (auto) 13.8 %; Neutrophils # (auto) 3.98 K/uL (1.4-6.5); Neutrophils % (auto) 69.6 %
--- NOTE | 2020-07-14 18:36 | CT Scan Report ---
CT chest diagnostic wo con CLINICAL HISTORY: Chest wall hematoma. COMPARISON STUDY: Earlier in the day CT DOSE: 694.07 mGycm TECHNIQUE: CT of the thorax was performed from the thoracic inlet to the lung bases. Images are revi ewed in the axial, sagittal, and coronal planes. IV contrast was not administered for this examinatio n. A dose lowering technique was utilized adhering to the principles of ALARA. FINDINGS: Thyroid: Imaged portions of the thyroid gland are normal in appearance. Thoracic aorta: The thoracic aorta is normal in course and caliber, noting standard 3 vessel arch eliu codi. Heart: There are coronary artery calcifications. There is no pericardial effusion. Lungs and pleural spaces: There is a trace left pleural effusion. There are subtle bilateral groundgl ass pulmonary opacities likely infectious/inflammatory. As was stated in the prior study, a follow-up chest x-ray in 3 months is recommended. Mediastinum: There is no evidence of pathologic mediastinal lymphadenopathy. Amelia: There is no evidence of pathologic hilar adenopathy given the limitations of a noncontrast stud y Axilla: There is known to pathologic axillary lymphadenopathy. Upper abdomen: There are multiple gallstones. The liver has a cirrhotic morphology. Skeletal structures: There is a persistent left chest wall hematoma. This measures 13.7 x 4.6 x 18 cm . There is associated edema of the left chest wall musculature. This makes evaluation of the margins of hematoma difficult. Evaluation is more limited than on the prior study as the current study was pe rformed without intravenous contrast. There is an acute left seventh rib fracture. IMPRESSION: 1. Evaluation somewhat limited in that the examination was performed without intravenous contrast 2. Difficult to measure, persistent left chest wall hematoma estimated to measure 18 x 13.7 x 4.6 cm. 3. Acute fracture the left lateral seventh rib 4. Cirrhosis 5. Cholelithiasis 6. Multifocal groundglass pulmonary opacities likely infectious/inflammatory. As previously stated 3 month follow-up CT scan is recommended ACT 112: Negative or not required by law. Electronically signed by: Dennis Oconnor M.D. 07/14/2020 6:34 PM
[2020-07-14] MEDS ORDERED: FUROSEMIDE 20 MG in SYRINGE 0 ML IV SCH (19:00)
--- NOTE | 2020-07-14 19:41 | Hospitalist Progress Note ---
Date of Service July 14, 2020 Assessment & Plan (1) Fall: (2) Left rib fracture: (3) Anemia: Secondary to traumatic bleeding hematoma left chest wall, left flank 7th Left Rib Fracture Coumadin coagulopathy, history of portal vein thrombosis -- CT chest: 1. Large hematoma within the left posterolateral chest wall that measures approximately 25 x 16.3 x 4.5 cm. This contains a 4 cm focus of active extravasation. 2. Acute mildly displaced fracture of the lateral left seventh rib. No pn eumothorax. Trace left pleural effusion. Old left fifth and sixth rib fractures. 3. Multifocal groundglass opacities within the lungs. These are likely infectious or inflammatory. However, a follow-up chest CT in 3 months to ensure resolution is recommended. 4. Cirrhosis. Manifestations of portal hypertension. -- repeat CT Chest: 1. Evaluation somewhat limited in that the examination was performed without intravenous contrast 2. Difficult to measure, persistent left chest wall hematoma estimated to measure 18 x 13.7 x 4.6 cm. 3. Acute fracture the left lateral seventh rib 4. Cirrhosis 5. Cholelithiasis 6. Multifocal groundglass pulmonary opacities likely infectious/inflammatory. As previously stated 3 month follow-up CT scan is recommended 5. Cholelithiasis. -- Hg dropped to 6.6 2 units pRBC ordered -- Plt 42k given 1 unit plateletpharesis -- INR 3.2- given Vitk 5mg po --> INR 1.8 -- repeat CBC and INR at 10pm -- Gen Surg consulted, no surgical intervention at this time Traumatic rib fractures -- Incentive spirometry pain control -- check left shoulder pain COVID-19 pneumonia -- no hypoxia -- continue to monitor hypertension, blood pressure on the lower side -- hold atenolol alcoholic cirrhosis -- T sujatha 4 Ct chest showing cirrhosis, portal hypertension -- monitor LFTs history of portal vein thrombosis -- last episode 15 yrs ago as per patient -- on coumadin since -- INR 3.2 given Vit K and FFP in light of hematoma -- INR 1.8 Alcoholism -- last drink 07/04 as per patient -- no signs of alcohol withdrawal hemolytic anemia as per records Hyperglycemia rule out DM -- a1c 5.2 PT OT eval DVT prophylaxis. SCDs while Coumadin on hold if INR less than 2 Full code Disposition needs PT/OT may need Rehab Admission and Anticipated Discharge Date Admission Date: July 14, 2020 Subjective ff up for left rib fracture, hematoma, anemia, COVID infection seen resting in bed, sitting up, not in distress states she feels improved compared to admission denies SOB, chest pain but does have left sided rib pain, worse with inspiration also has left shoulder pain denies headache, dizziness, nausea/vomiting, palpitations, problems with urination or BM no other symptoms Review of Systems Review of Systems: All systems reviewed & are unremarkable except as noted in Subjective Physical Exam Physical Exam: General- oriented x 3, not in distress, speaks in sentences with no effort or accessory muscle use Head- atraumatic Eyes- PERRL, EOMI, anicteric ENT- oropharynx clear Neck- supple, no JVD, no adenopathy, no thyromegaly; carotids +2/2, no bruits appreciated Lungs- clear to auscultation bilaterally, no rales/wheezes (+) areas of hematoma on the left side of the back Heart- normal rate, regular rhythm; no murmurs Abdomen- normal bowel sounds, nondistended, soft, nontender, no masses or hepatosplenomegaly Extremities- no pretibial edema, no calf tenderness; peripheral pulses intact Neuro- alert, oriented x 3; CN 2-12 grossly intact; motor 5/5 bilaterally;sensation 100% on all extremities; no other gross focal neurologic deficits Skin- warm & dry Results & Data Results & Data ([facility]) Vital Signs (Past 12 Hours) Vital Signs Temp Pulse Pulse Resp BP BP Pulse Ox 07/14/20 18:04 36.9 C 99 H 18 110/53 L 93 07/14/20 17:34 89 18 128/73 92 07/14/20 17:19 36.7 C 84 18 135/78 92 07/14/20 16:58 37.1 C 96 H 18 116/67 91 07/14/20 16:56 37.1 C 85 18 128/67 95 07/14/20 16:23 37.3 C 86 18 144/81 H 93 07/14/20 15:23 37 C 85 18 137/71 94 07/14/20 14:23 72 18 104/64 93 07/14/20 14:22 63 18 119/58 L 93 07/14/20 13:53 76 18 116/71 96 07/14/20 13:38 37.9 C H 72 18 118/69 96 07/14/20 13:21 36.5 C 80 18 100/59 L 94 07/14/20 11:56 36.8 C 72 18 100/57 L 95 07/14/20 09:12 36.4 C L 62 18 110/69 97 07/14/20 08:58 36.4 C L 61 18 117/54 L 97 07/14/20 07:54 36.5 C 62 16 110/69 96 Laboratory Results Laboratory Results - last 24 hr 07/14/20 07/14/20 07/14/20 00:48 00:48 00:48 WBC 4.63 L RBC 3.10 L Hgb 10.5 L Hct 30.4 L MCV 98.1 MCH 33.9 MCHC 34.5 RDW Std Deviation 55.4 H RDW Coeff of Martinez 15.5 H Plt Count 52 L MPV 11.8 H Immature Gran % (Auto) 0.9 Neut % (Auto) 71.7 Lymph % (Auto) 15.6 [place] % (Auto) 11.2 Eos % (Auto) 0.2 Baso % (Auto) 0.4 Neut # (Auto) 3.32 Lymph # (Auto) 0.72 L [place] # (Auto) 0.52 Eos # (Auto) 0.01 Baso # (Auto) 0.02 Immature Gran # (Auto) 0.04 H Absolute Nucleated RBC Nucleated RBC % (auto) Platelet Estimate Decreased L Giant Platelets 1+ RBC Morphology Unremarkable PT INR Sodium 138 Potassium 4.0 Chloride 106 Carbon Dioxide 24 Anion Gap 8.0 BUN 14 Creatinine 0.95 Est Cr Clr Drug Dosing 58.7 Est GFR ( Amer) 69.4 Est GFR (Non-Af Amer) 59.8 BUN/Creatinine Ratio 14.9 Glucose 142 H Estimat Average Glucose 103 Hemoglobin A1c 5.2 Calcium 7.9 L Magnesium 1.8 Total Bilirubin 4.5 H AST 91 H ALT 43 Alkaline Phosphatase 135 H Total Protein 6.2 L Albumin 2.3 L Globulin 3.9 Albumin/Globulin Ratio 0.6 L TSH 3.130 Specimen Hemolysis Urine Color Urine Appearance Urine pH Ur Specific [place] Urine Protein Urine Glucose (UA) Urine Ketones Urine Blood Urine Nitrite Urine Bilirubin Urine Urobilinogen Ur Leukocyte Esterase Urine WBC (Auto) Urine RBC (Auto) U Hyaline Cast (Auto) U Epithel Cells (Auto) Urine Bacteria (Auto) Ethyl Alcohol mg/dL Blood Type Blood Type Recheck Antibody Screen Crossmatch 07/14/20 07/14/20 07/14/20 03:52 04:07 05:25 WBC RBC Hgb Hct MCV MCH MCHC RDW Std Deviation RDW Coeff of Martinez Plt Count MPV Immature Gran % (Auto) Neut % (Auto) Lymph % (Auto) [place] % (Auto) Eos % (Auto) Baso % (Auto) Neut # (Auto) Lymph # (Auto) [place] # (Auto) Eos # (Auto) Baso # (Auto) Immature Gran # (Auto) Absolute Nucleated RBC Nucleated RBC % (auto) Platelet Estimate Giant Platelets RBC Morphology PT 32.0 H INR 3.2 H Sodium Potassium Chloride Carbon Dioxide Anion Gap BUN Creatinine Est Cr Clr Drug Dosing Est GFR ( Amer) Est GFR (Non-Af Amer) BUN/Creatinine Ratio Glucose Estimat Average Glucose Hemoglobin A1c Calcium Magnesium Total Bilirubin AST ALT Alkaline Phosphatase Total Protein Albumin Globulin Albumin/Globulin Ratio TSH Specimen Hemolysis Urine Color Urine Appearance Urine pH Ur Specific [place] Urine Protein Urine Glucose (UA) Urine Ketones Urine Blood Urine Nitrite Urine Bilirubin Urine Urobilinogen Ur Leukocyte Esterase Urine WBC (Auto) Urine RBC (Auto) U Hyaline Cast (Auto) U Epithel Cells (Auto) Urine Bacteria (Auto) Ethyl Alcohol mg/dL < 3.0 Blood Type O Positive Blood Type Recheck Antibody Screen NEGATIVE Crossmatch See Detail 07/14/20 07/14/20 07/14/20 05:25 11:52 11:52 WBC 4.10 L RBC 2.10 L Hgb 8.5 L 7.0 L Hct 24.8 L 20.7 L* MCV 98.6 MCH 33.3 MCHC 33.8 RDW Std Deviation 56.9 H RDW Coeff of Martinez 15.9 H Plt Count 42 L MPV 11.7 H Immature Gran % (Auto) 0.5 Neut % (Auto) 73.4 Lymph % (Auto) 15.4 [place] % (Auto) 10.7 Eos % (Auto) 0.0 Baso % (Auto) 0.0 Neut # (Auto) 3.01 Lymph # (Auto) 0.63 L [place] # (Auto) 0.44 Eos # (Auto) 0.00 Baso # (Auto) 0.00 Immature Gran # (Auto) 0.02 Absolute Nucleated RBC 0.02 H Nucleated RBC % (auto) 0.6 Platelet Estimate Giant Platelets RBC Morphology Unremarkable PT 22.4 H INR 2.2 H Sodium Potassium Chloride Carbon Dioxide Anion Gap BUN Creatinine Est Cr Clr Drug Dosing Est GFR ( Amer) Est GFR (Non-Af Amer) BUN/Creatinine Ratio Glucose Estimat Average Glucose Hemoglobin A1c Calcium Magnesium Total Bilirubin AST ALT Alkaline Phosphatase Total Protein Albumin Globulin Albumin/Globulin Ratio TSH Specimen Hemolysis Urine Color Urine Appearance Urine pH Ur Specific [place] Urine Protein Urine Glucose (UA) Urine Ketones Urine Blood Urine Nitrite Urine Bilirubin Urine Urobilinogen Ur Leukocyte Esterase Urine WBC (Auto) Urine RBC (Auto) U Hyaline Cast (Auto) U Epithel Cells (Auto) Urine Bacteria (Auto) Ethyl Alcohol mg/dL Blood Type Blood Type Recheck Antibody Screen Crossmatch 07/14/20 07/14/20 07/14/20 11:52 13:30 16:14 WBC 5.72 RBC 1.97 L Hgb 6.6 L* Hct 19.4 L* MCV 98.5 MCH 33.5 MCHC 34.0 RDW Std Deviation 57.0 H RDW Coeff of Martinez 16.0 H Plt Count 48 L MPV 12.0 H Immature Gran % (Auto) 0.5 Neut % (Auto) 69.6 Lymph % (Auto) 15.9 [place] % (Auto) 13.8 Eos % (Auto) 0.0 Baso % (Auto) 0.2 Neut # (Auto) 3.98 Lymph # (Auto) 0.91 L [place] # (Auto) 0.79 H Eos # (Auto) 0.00 Baso # (Auto) 0.01 Immature Gran # (Auto) 0.03 H Absolute Nucleated RBC 0.03 H Nucleated RBC % (auto) 0.5 Platelet Estimate Giant Platelets RBC Morphology PT INR Sodium Potassium Chloride Carbon Dioxide Anion Gap BUN Creatinine Est Cr Clr Drug Dosing Est GFR ( Amer) Est GFR (Non-Af Amer) BUN/Creatinine Ratio Glucose Estimat Average Glucose Hemoglobin A1c Calcium Magnesium Total Bilirubin AST ALT Alkaline Phosphatase Total Protein Albumin Globulin Albumin/Globulin Ratio TSH Specimen Hemolysis Urine Color Dark Yellow Urine Appearance Slightly Cloudy A Urine pH 6.0 Ur Specific [place] > 1.045 H Urine Protein Trace H Urine Glucose (UA) Negative Urine Ketones Negative Urine Blood 1+ H Urine Nitrite Positive A Urine Bilirubin Negative Urine Urobilinogen Positive H Ur Leukocyte Esterase 2+ H Urine WBC (Auto) >30 H Urine RBC (Auto) 10-30 H U Hyaline Cast (Auto) 1-5 U Epithel Cells (Auto) >30 H Urine Bacteria (Auto) 4+ H Ethyl Alcohol mg/dL Blood Type Blood Type Recheck O Positive Antibody Screen Crossmatch 07/14/20 16:14 WBC RBC Hgb Hct MCV MCH MCHC RDW Std Deviation RDW Coeff of Martinez Plt Count MPV Immature Gran % (Auto) Neut % (Auto) Lymph % (Auto) [place] % (Auto) Eos % (Auto) Baso % (Auto) Neut # (Auto) Lymph # (Auto) [place] # (Auto) Eos # (Auto) Baso # (Auto) Immature Gran # (Auto) Absolute Nucleated RBC Nucleated RBC % (auto) Platelet Estimate Giant Platelets RBC Morphology PT 18.6 H INR 1.8 H Sodium Potassium Chloride Carbon Dioxide Anion Gap BUN Creatinine Est Cr Clr Drug Dosing Est GFR ( Amer) Est GFR (Non-Af Amer) BUN/Creatinine Ratio Glucose Estimat Average Glucose Hemoglobin A1c Calcium Magnesium Total Bilirubin AST ALT Alkaline Phosphatase Total Protein Albumin Globulin Albumin/Globulin Ratio TSH Specimen Hemolysis Urine Color Urine Appearance Urine pH Ur Specific [place] Urine Protein Urine Glucose (UA) Urine Ketones Urine Blood Urine Nitrite Urine Bilirubin Urine Urobilinogen Ur Leukocyte Esterase Urine WBC (Auto) Urine RBC (Auto) U Hyaline Cast (Auto) U Epithel Cells (Auto) Urine Bacteria (Auto) Ethyl Alcohol mg/dL Blood Type Blood Type Recheck Antibody Screen Crossmatch
[2020-07-15 03:55] LABS: Hematocrit (blood only) 23.4 % (37-47); Hemoglobin 8.2 g/dL (12.0-16.0); Mean Corpuscular Hemoglobin 32.2 pg (25-34); Mean Corpuscular Volume 91.8 fL (80-100); Mean Platelet Volume 10.9 fL (7.4-10.4); Nucleated RBC # (auto) 0.02 K/uL (0-0); Nucleated RBC % (auto) 0.4 %; Platelet Count 41 K/uL (130-400); RDW Coefficient of Variation 18.7 % (11.5-14.5); RDW Standard Deviation 60.6 fL (36.4-46.3); Red Blood Count 2.55 M/uL (4.2-5.4)
[2020-07-15 04:10] LABS: INR 1.6 (0.9-1.1); Prothrombin Time 16.2 Seconds (9.0-12.0)
[2020-07-15 04:13] LABS: Basophils # (auto) 0.01 K/uL (0-0.2); Basophils % (auto) 0.2 %; Eosinophils # (auto) 0.09 K/uL (0-0.5); Giant Platelets 3+; Immature Granulocytes # (auto) 0.02 K/uL (0.00-0.02); Immature Granulocytes % (auto) 0.4 %; Lymphocytes # (auto) 1.07 K/uL (1.2-3.4); Lymphocytes % (auto) 23.3 %; Monocytes # (auto) 0.69 K/uL (0.11-0.59); Neutrophils # (auto) 2.72 K/uL (1.4-6.5); Neutrophils % (auto) 59.1 %
[2020-07-15 04:14] LABS: Albumin Globulin Ratio 0.8 (0.9-2); Albumin Level 2.4 gm/dl (3.4-5.0); BUN Creatinine Ratio 20.5 (10-20); Bilirubin,Total 4.5 mg/dl (0.2-1); Calcium 7.3 mg/dl (8.5-10.1); Creatinine Clr Calc Pharmacy 67.4 ml/min; Est GFR (African American) 79.3; Est GFR (Non-African American) 68.5; Globulin 3.1 gm/dl (2.5-4.0); Potassium 3.1 mmol/L (3.5-5.1); Total Protein 5.5 gm/dl (6.4-8.2)
[2020-07-15] MEDS: THIAMINE HCL 100 MG TAB PO SCH (09:01)
[2020-07-15] MEDS ORDERED: POTASSIUM CHLORIDE CRTAB 20 MEQ TABCR PO STA (09:01)
[2020-07-15] MEDS: FOLIC ACID 1 MG TAB PO SCH (09:02)
[2020-07-15] MEDS: MULTIVITAMIN TAB PO SCH (09:02)
[2020-07-15] MEDS: LIDOCAINE 5% 1 PATCH TD SCH (09:02)
[2020-07-15 09:03] LABS: Albumin Level 2.4 gm/dl (3.4-5.0); Bilirubin Direct 1.5 mg/dl (0-0.2); Bilirubin,Total 4.3 mg/dl (0.2-1); Total Protein 5.4 gm/dl (6.4-8.2)
[2020-07-15] MEDS ORDERED: cefTRIAXone SODIUM 2,000 MG in DEXTROSE 5% 50 ML IV SCH (10:00)
--- NOTE | 2020-07-15 10:48 | Gastrointestinal Consultation ---
Date of Consultation July 15, 2020 Assessment & Plan (1) Elevated LFTs: (2) Alcoholic cirrhosis: Pt is a 74 y/o female w COVID 19 infection, admitted after a fall, found to have rib fracture and large L flank/back hematoma in setting of Warfarin use for hx of PVT, resulting in anemia treated w PRBC transfusion. She has hx of ETOH cirrhosis w MELD of 17, last ETOH intake in [place], LFTs noted to be elevated which is suspected to be related to current infections (COVID 19 and UTI). - Recommend obtaining blood cultures - Continue to monitor LFTs for now - Considered dedicated liver u/s however will defer given current COVID 19 infection and on isolation - UTI treatment per primary team - Will help arrange outpt f/u for continued cirrhosis management upon DC home Supervising Physician Co-Signing Physician Notes I have seen and examined the patient and discussed the management with NEHA Lyon. GI consult for elevated tb and lft's, covid + patient, admitted with a fall and left sided hematoma on coumadin for history of pvt PE - alert and oriented to person, place, time, HEENT - perrla, no visible scleral icterus, Abd - soft nt nd +bs Labs reviewed - meld 17 driven primarily by bilirubin CT a/p reviewed Essentially asymptomatic elevation in lft's (she voices no complaints of fevers, chills, abdominal pain, nausea, vomiting, hematemesis, hematochezia) with acute anemia related to left sided hematoma from recent fall. Suspect her tb elevation is from infection- check blood cultures, continue course of abx for a uti. Once recovered from covid, consider dedicated abd gabbi. Acute anemia resolved with a blood transfusion and thought to be secondary to her hematoma. History of Present Illness Reason for Consultation: Elevated direct bilirubin, hx of ETOH cirrhosis Requesting Physician: Dr. Emeka Bashir Attending Physician: Dr. Gregoria Morgan History of Present Illness Pt is a 74 y/o female w PMHx as noted below, who currently has COVID 19 infection (tested in [place]), who was admitted yesterday w after a fall. A week ago started to have productive cough symptoms along w epigastric pain, n/v. Appetite poor and she felt she's getting weak, dehydrated and light headed, then fell yesterday. Upon eval she did have a large L flank/back hematoma & traumatic rib fractures. On Warfarin for hx of PVT. INR 1.6. Anemic on presentation w Hgb on 6, improved to 8 after 2U PRBC transfusion. Urine culture grew gram negative bacilli, currently on Ceftriaxone. She does have hx of ETOH cirrhosis, hasn't been followed in outpt care since 2013 per our records. Hx of portal gastropathy, no varices per last EGD in 2012. LFTs are up at this time: Tbili 4.3, AST 63, ALT 32, Alk phos 92. She denies symptoms of jaundice, abd pain, n/v, changes in bowel habits currently, no signs of GI bleeding, leg edema. She reports last ETOH intake was in [place]. CT abd/pelvis w contrast: 1. There is a large hematoma identified in the lower left lateral chest wall with foci of active extravasation. 2. A left 7th rib fracture is noted. See report of chest CT performed concurrently for detailed intrathoracic findings. 3. There is no evidence of solid organ injury in the abdomen or pelvis. 4. The liver is cirrhotic in morphology and heterogeneous in attenuation with micronodular change. 5. There are perisplenic varices with evidence of a splenorenal shunt. This manny cates portal hypertension. 6. Cholelithiasis. 7. Colonic diverticulosis without CT evidence of acute diverticulitis. Allergies Allergy/AdvReac Type Severity Reaction Status Date / Time Penicillins Allergy Severe UNKNOWN Verified 07/14/20 01:32 aspirin Allergy Intermediate HIVES Verified 07/14/20 01:32 Home Medications Medication Instructions Recorded Confirmed Type Centrum Multigummies Women 1 tab PO QAM 07/14/20 07/14/20 History atenolol 25 mg PO QAM 07/14/20 07/14/20 History [id number] 30 ml PO Q4 PRN 07/14/20 07/14/20 History [Theraflu Cold-Cough] warfarin [Coumadin] 2 mg PO [id number] 07/14/20 07/14/20 History warfarin [Coumadin] 3 mg PO WK 07/14/20 07/14/20 History Patient History Social History Smoking Status: Never smoker Hx Alcohol Use: Yes Alcohol type: wine Hx Substance Use: No Preferred Language: Kyrgyz Communication Ability: Effective Beliefs That Will Affect Care: None Current Living Situation: Family Feels Safe at Home: Yes Safety Concerns: Feels Safe At This Time Assistive Devices: None Review of Systems Review of Systems: All systems reviewed & are unremarkable except as noted in HPI & below Physical Exam Constitutional: WD/WN, vitals as above well groomed, cooperative and comfortable Eyes: PERRL, conjunctivae normal, anicteric sclerae ENMT: external ear and nose normal, oropharynx normal Respiratory: Auscultation: + diminished lung sounds Cardiovascular: RRR, no murmur, no edema Gastrointestinal (Abdomen): normal bowel sounds, soft, nontender, no hepatosplenomegaly Skin: no rashes, warm and dry no jaundice Neurologic: Motor/Sensory: no asterixis Psychiatric: A+Ox3, euthymic affect Lymphatic: no lymphedema Results & Data ([facility]) Vital Signs (Past 12 Hours) Vital Signs Temp Pulse Pulse Resp BP BP Pulse Ox 07/15/20 07:55 37.1 C 82 19 125/59 L 92 07/15/20 05:02 37.0 C 79 18 131/69 95 07/15/20 02:36 73 07/15/20 02:03 37.6 C H 78 20 122/68 91 07/15/20 01:45 36.7 C 79 20 127/75 91 07/15/20 00:45 37.0 C 87 20 118/68 92 07/15/20 00:15 37.0 C 93 H 20 116/66 90 07/15/20 00:00 37.0 C 79 20 120/67 90 07/14/20 23:40 37.0 C 76 20 117/56 L 93 07/14/20 23:09 37.1 C 89 20 144/76 H 92 07/14/20 22:55 36.6 C 77 20 108/66 91
[2020-07-15 11:40] LABS: Hematocrit (blood only) 26.4 % (37-47); Mean Corpuscular Hemoglobin 31.6 pg (25-34); Mean Corpuscular Hgb Conc 34.1 g/dL (32-36); Mean Corpuscular Volume 92.6 fL (80-100); RDW Coefficient of Variation 19.6 % (11.5-14.5); RDW Standard Deviation 62.9 fL (36.4-46.3); Red Blood Count 2.85 M/uL (4.2-5.4); White Blood Count 4.86 K/uL (4.8-10.8)
[2020-07-15 11:48] LABS: Mean Platelet Volume 11.6 fL (7.4-10.4); Platelet Count 45 K/uL (130-400)
[2020-07-15 12:02] LABS: Basophils # (auto) 0.02 K/uL (0-0.2); Basophils % (auto) 0.4 %; Eosinophils # (auto) 0.09 K/uL (0-0.5); Eosinophils % (auto) 1.9 %; Immature Granulocytes # (auto) 0.03 K/uL (0.00-0.02); Immature Granulocytes % (auto) 0.6 %; Lymphocytes # (auto) 0.94 K/uL (1.2-3.4); Lymphocytes % (auto) 19.3 %; Monocytes # (auto) 0.63 K/uL (0.11-0.59); Neutrophils # (auto) 3.15 K/uL (1.4-6.5); Neutrophils % (auto) 64.8 %
[2020-07-15 15:45] LABS: INR 1.5 (0.9-1.1); Prothrombin Time 15.6 Seconds (9.0-12.0)
[2020-07-15 16:48] LABS: Hematocrit (blood only) 23.5 % (37-47); Hemoglobin 8.1 g/dL (12.0-16.0); Mean Corpuscular Hemoglobin 30.9 pg (25-34); Mean Corpuscular Hgb Conc 34.5 g/dL (32-36); Mean Corpuscular Volume 89.7 fL (80-100); Nucleated RBC # (auto) 0.04 K/uL (0-0); Nucleated RBC % (auto) 0.8 %; Platelet Count 34 K/uL (130-400); RDW Coefficient of Variation 19.5 % (11.5-14.5); RDW Standard Deviation 61.1 fL (36.4-46.3); Red Blood Count 2.62 M/uL (4.2-5.4); White Blood Count 4.47 K/uL (4.8-10.8)
[2020-07-15 17:03] LABS: Basophils # (auto) 0.05 K/uL (0-0.2); Basophils % (auto) 1.1 %; Eosinophils # (auto) 0.06 K/uL (0-0.5); Eosinophils % (auto) 1.3 %; Immature Granulocytes % (auto) 2.2 %; Lymphocytes # (auto) 0.95 K/uL (1.2-3.4); Lymphocytes % (auto) 21.3 %; Monocytes # (auto) 0.92 K/uL (0.11-0.59); Monocytes % (auto) 20.6 %; Neutrophils # (auto) 2.39 K/uL (1.4-6.5); Neutrophils % (auto) 53.5 %
[2020-07-15 17:07] LABS: Giant Platelets 1+
[2020-07-15] MEDS ORDERED: traMADol HCL 50 MG TABLET PO ONE (17:52)
--- NOTE | 2020-07-15 20:52 | Hospitalist Progress Note ---
Date of Service July 15, 2020 Assessment & Plan (1) Fall: (2) Left rib fracture: (3) Anemia: Secondary to traumatic bleeding hematoma left chest wall, left flank 7th Left Rib Fracture Coumadin coagulopathy, history of portal vein thrombosis -- CT chest: 1. Large hematoma within the left posterolateral chest wall that measures approximately 25 x 16.3 x 4.5 cm. This contains a 4 cm focus of active extravasation. 2. Acute mildly displaced fracture of the lateral left seventh rib. No pn eumothorax. Trace left pleural effusion. Old left fifth and sixth rib fractures. 3. Multifocal groundglass opacities within the lungs. These are likely infectious or inflammatory. However, a follow-up chest CT in 3 months to ensure resolution is recommended. 4. Cirrhosis. Manifestations of portal hypertension. -- repeat CT Chest: 1. Evaluation somewhat limited in that the examination was performed without intravenous contrast 2. Difficult to measure, persistent left chest wall hematoma estimated to measure 18 x 13.7 x 4.6 cm. 3. Acute fracture the left lateral seventh rib 4. Cirrhosis 5. Cholelithiasis 6. Multifocal groundglass pulmonary opacities likely infectious/inflammatory. As previously stated 3 month follow-up CT scan is recommended 5. Cholelithiasis. -- Hg dropped to 6.6 2 units pRBC ordered HemoGlobin increased to 8 Repeat CBC tomorrow -- Plt 42k given 1 unit plateletpharesis Plt 34 Acute on chronic thrombocytopenia likely secondary to consumption from large hematoma Repeat platelet tomorrow -- INR 3.2- given Vitk 5mg po --> INR 1.5 -- repeat CBC and INR tomorrow -- Gen Surg consulted, no surgical intervention at this time Traumatic rib fractures -- Incentive spirometry pain control -- check left shoulder xray COVID-19 pneumonia -- no hypoxia -- continue to monitor Continue isolation hypertension, blood pressure on the lower side -- resume Atenolol alcoholic cirrhosis -- T sujatha 4 Ct chest showing cirrhosis, portal hypertension -- monitor LFTs GI consulted history of portal vein thrombosis -- last episode 15 yrs ago as per patient -- on coumadin since -- INR 3.4 given Vit K and FFP in light of hematoma -- INR 1.5 --Resume Coumadin in 2 days if patient remains stable, CBC stable Alcoholism -- last drink 07/04 as per patient -- no signs of alcohol withdrawal hemolytic anemia as per records Hyperglycemia rule out DM -- a1c 5.2 PT OT eval DVT prophylaxis. SCDs while Coumadin on hold if INR less than 2 Full code Disposition needs PT/OT may need Rehab Admission and Anticipated Discharge Date Admission Date: July 14, 2020 Subjective Follow-up status post fall, left wrist fracture, left side hematoma, COVID-19 pneumonia Sitting up in bedside chair, comfortable, alert, awake, in good spirits today States she feels better today compared to yesterday Left-sided rib/back pain still significant but improving Has occasional cough, with clear sputum Denies shortness of breath No other symptoms Review of Systems Review of Systems: All systems reviewed & are unremarkable except as noted in Subjective Physical Exam Physical Exam: General- oriented x 3, not in distress, speaks in sentences with no effort or accessory muscle use Eyes- anicteric Neck- no JVD Lungs- clear breath sounds bilaterally, no rales/wheezes Positive areas of hematoma at the left posterolateral rib, left side of the back, with moderate edema, and tenderness Heart- normal rate, regular rhythm; no murmurs Abdomen- normal bowel sounds, nondistended, soft, nontender Extremities- no pretibial edema, no calf tenderness Neuro- alert, oriented x 3; no gross focal neurologic deficits Skin- warm & dry Results & Data Results & Data ([facility]) Vital Signs (Past 12 Hours) Vital Signs Temp Pulse Resp BP Pulse Ox 07/15/20 20:10 37.0 C 96 H 20 123/71 96 07/15/20 17:11 37.3 C 96 H 20 149/85 H 96 07/15/20 15:35 36.7 C 99 H 22 164/65 H 93 07/15/20 12:37 95 07/15/20 11:34 36.7 C 103 H 18 133/66 91 Laboratory Results Laboratory Results - last 24 hr 07/14/20 07/15/20 07/15/20 05:25 03:38 03:38 WBC RBC Hgb Hct MCV MCH MCHC RDW Std Deviation RDW Coeff of Martinez Plt Count MPV Immature Gran % (Auto) Neut % (Auto) Lymph % (Auto) Burt % (Auto) Eos % (Auto) Baso % (Auto) Neut # (Auto) Lymph # (Auto) Burt # (Auto) Eos # (Auto) Baso # (Auto) Immature Gran # (Auto) Absolute Nucleated RBC Nucleated RBC % (auto) Giant Platelets PT 16.2 H INR 1.6 H Sodium 137 Potassium 3.1 L D Chloride 105 Carbon Dioxide 29 Anion Gap 3.0 BUN 17 Creatinine 0.85 Est Cr Clr Drug Dosing 67.4 Est GFR ( Amer) 79.3 Est GFR (Non-Af Amer) 68.5 BUN/Creatinine Ratio 20.5 H Glucose 93 Calcium 7.3 L Total Bilirubin 4.5 H Direct Bilirubin AST 62 H ALT 34 Alkaline Phosphatase 99 Total Protein 5.5 L Albumin 2.4 L Globulin 3.1 Albumin/Globulin Ratio 0.8 L Blood Type O Positive Antibody Screen NEGATIVE Crossmatch See Detail 07/15/20 07/15/20 07/15/20 03:38 03:38 11:19 WBC 4.60 L 4.86 RBC 2.55 L 2.85 L Hgb 8.2 L 9.0 L Hct 23.4 L 26.4 L MCV 91.8 D 92.6 MCH 32.2 31.6 MCHC 35.0 34.1 RDW Std Deviation 60.6 H 62.9 H RDW Coeff of Martinez 18.7 H 19.6 H Plt Count 41 L 45 L MPV 10.9 H 11.6 H Immature Gran % (Auto) 0.4 0.6 Neut % (Auto) 59.1 64.8 Lymph % (Auto) 23.3 19.3 Burt % (Auto) 15.0 13.0 Eos % (Auto) 2.0 1.9 Baso % (Auto) 0.2 0.4 Neut # (Auto) 2.72 3.15 Lymph # (Auto) 1.07 L 0.94 L Burt # (Auto) 0.69 H 0.63 H Eos # (Auto) 0.09 0.09 Baso # (Auto) 0.01 0.02 Immature Gran # (Auto) 0.02 0.03 H Absolute Nucleated RBC 0.02 H Nucleated RBC % (auto) 0.4 Giant Platelets 3+ PT INR Sodium Potassium Chloride Carbon Dioxide Anion Gap BUN Creatinine Est Cr Clr Drug Dosing Est GFR ( Amer) Est GFR (Non-Af Amer) BUN/Creatinine Ratio Glucose Calcium Total Bilirubin 4.3 H Direct Bilirubin 1.5 H AST 63 H ALT 32 Alkaline Phosphatase 95 Total Protein 5.4 L Albumin 2.4 L Globulin Albumin/Globulin Ratio Blood Type Antibody Screen Crossmatch 07/15/20 07/15/20 15:06 15:06 WBC 4.47 L RBC 2.62 L Hgb 8.1 L Hct 23.5 L MCV 89.7 MCH 30.9 MCHC 34.5 RDW Std Deviation 61.1 H RDW Coeff of Martinez 19.5 H Plt Count 34 L MPV 12.0 H Immature Gran % (Auto) 2.2 Neut % (Auto) 53.5 Lymph % (Auto) 21.3 Burt % (Auto) 20.6 Eos % (Auto) 1.3 Baso % (Auto) 1.1 Neut # (Auto) 2.39 Lymph # (Auto) 0.95 L Burt # (Auto) 0.92 H Eos # (Auto) 0.06 Baso # (Auto) 0.05 Immature Gran # (Auto) 0.10 H Absolute Nucleated RBC 0.04 H Nucleated RBC % (auto) 0.8 Giant Platelets 1+ PT 15.6 H INR 1.5 H Sodium Potassium Chloride Carbon Dioxide Anion Gap BUN Creatinine Est Cr Clr Drug Dosing Est GFR ( Amer) Est GFR (Non-Af Amer) BUN/Creatinine Ratio Glucose Calcium Total Bilirubin Direct Bilirubin AST ALT Alkaline Phosphatase Total Protein Albumin Globulin Albumin/Globulin Ratio Blood Type Antibody Screen Crossmatch
[2020-07-16 06:22] LABS: Hematocrit (blood only) 22.2 % (37-47); Hemoglobin 7.6 g/dL (12.0-16.0); Mean Corpuscular Hemoglobin 31.7 pg (25-34); Mean Corpuscular Hgb Conc 34.2 g/dL (32-36); Mean Corpuscular Volume 92.5 fL (80-100); RDW Coefficient of Variation 19.8 % (11.5-14.5); RDW Standard Deviation 63.7 fL (36.4-46.3); White Blood Count 2.81 K/uL (4.8-10.8)
[2020-07-16 06:28] LABS: Mean Platelet Volume 11.2 fL (7.4-10.4); Platelet Count 34 K/uL (130-400)
[2020-07-16 06:31] LABS: INR 1.5 (0.9-1.1); Prothrombin Time 15.4 Seconds (9.0-12.0)
[2020-07-16 06:57] LABS: Basophils # (auto) 0.01 K/uL (0-0.2); Basophils % (auto) 0.4 %; Eosinophils # (auto) 0.05 K/uL (0-0.5); Eosinophils % (auto) 1.8 %; Immature Granulocytes # (auto) 0.02 K/uL (0.00-0.02); Immature Granulocytes % (auto) 0.7 %; Lymphocytes # (auto) 0.72 K/uL (1.2-3.4); Lymphocytes % (auto) 25.6 %; Monocytes # (auto) 0.56 K/uL (0.11-0.59); Monocytes % (auto) 19.9 %; Neutrophils # (auto) 1.45 K/uL (1.4-6.5); Neutrophils % (auto) 51.6 %; RBC Morphology Unremarkable
[2020-07-16 07:11] LABS: BUN Creatinine Ratio 20.6 (10-20); Calcium 7.6 mg/dl (8.5-10.1); Creatinine Clr Calc Pharmacy 93.4 ml/min; Est GFR (African American) 104.4; Est GFR (Non-African American) 90.1; Potassium 3.1 mmol/L (3.5-5.1)
[2020-07-16] MEDS: MULTIVITAMIN TAB PO SCH (07:51)
[2020-07-16] MEDS: THIAMINE HCL 100 MG TAB PO SCH (07:51)
[2020-07-16] MEDS: LIDOCAINE 5% 1 PATCH TD SCH (07:52)
[2020-07-16] MEDS: FOLIC ACID 1 MG TAB PO SCH (07:53)
[2020-07-16 09:36] LABS: Albumin Level 2.2 gm/dl (3.4-5.0); Bilirubin Direct 1.6 mg/dl (0-0.2); Bilirubin,Total 3.6 mg/dl (0.2-1); Total Protein 5.4 gm/dl (6.4-8.2)
--- NOTE | 2020-07-16 11:00 | Communication Note ---
Date of Service: July 16, 2020 GI communication note: LFTs slightly trending down. Again suspect elevation due to current infections. Recommend trending values, please recall GI prn
[2020-07-16] MEDS ORDERED: ERTAPENEM SODIUM 1,000 MG in SODIUM CHLORIDE 0.9% 50 ML IV ONE (11:15)
[2020-07-16] MEDS ORDERED: fentaNYL citrate 100 MCG/2 ML VIAL ONE ×2 (15:41→18:00)
[2020-07-16] MEDS ORDERED: PROPOFOL IV EMULSION 10 MG/ML 20 ML VIAL IV ONE ×2 (15:41→15:42)
[2020-07-16] MEDS ORDERED: LIDOCAINE HCL 2% 2 ML VIAL/AMP(20MG/ML) INFIL ONE (15:41)
[2020-07-16] MEDS ORDERED: ONDANSETRON INJ 2 MG/ML 2 ML VIAL ONE (15:42)
[2020-07-16] MEDS ORDERED: POTASSIUM CHLORIDE CRTAB 20 MEQ TABCR PO STA (16:29)
--- NOTE | 2020-07-16 16:29 | Hospitalist Progress Note ---
Date of Service July 16, 2020 Assessment & Plan (1) Fall: (2) Left rib fracture: (3) Anemia: Acute blood loss anemia Secondary to traumatic bleeding hematoma left chest wall, left flank, in the setting of warfarin therapy 7th Left Rib Fracture Coumadin coagulopathy, history of portal vein thrombosis -- CT chest: 1. Large hematoma within the left posterolateral chest wall that measures approximately 25 x 16.3 x 4.5 cm. This contains a 4 cm focus of active extravasation. 2. Acute mildly displaced fracture of the lateral left seventh rib. No pneumothorax. Trace left pleural effusion. Old left fifth and sixth rib fractures. 3. Multifocal groundglass opacities within the lungs. These are likely infectious or inflammatory. However, a follow-up chest CT in 3 months to ensure resolution is recommended. 4. Cirrhosis. Manifestations of portal hypertension. -- repeat CT Chest: 1. Evaluation somewhat limited in that the examination was performed without intravenous contrast 2. Difficult to measure, persistent left chest wall hematoma estimated to measure 18 x 13.7 x 4.6 cm. 3. Acute fracture the left lateral seventh rib 4. Cirrhosis 5. Cholelithiasis 6. Multifocal groundglass pulmonary opacities likely infectious/inflammatory. As previously stated 3 month follow-up CT scan is recommended 5. Cholelithiasis. -- Hg dropped to 6.6 2 units pRBC ordered HemoGlobin increased to 8 - current Hgb 7.6, cont. to monitor CBC -- Plt 42k given 1 unit platelets Plt 34 Acute on chronic thrombocytopenia likely secondary to consumption from large hematoma Repeat platelet 34, will transfuse 1 unit -- INR 3.2- given Vitk 5mg po --> INR 1.5 -- monitor INR -- Gen Surg consulted, no surgical intervention at this time Traumatic rib fractures -- Incentive spirometry pain control -- check left shoulder xray COVID-19 pneumonia -- no hypoxia -- continue to monitor Continue isolation hypertension, blood pressure on the lower side -- resume Atenolol alcoholic cirrhosis -- T sujatha 4 Ct chest showing cirrhosis, portal hypertension -- monitor LFTs GI consulted - recommend Abd US after acute infection resolved history of portal vein thrombosis -- last episode 15 yrs ago as per patient -- on coumadin since -- INR 3.4 given Vit K and FFP in light of hematoma -- INR 1.5 --Resume Coumadin in 2 days if patient remains stable, CBC stable -will need liver US/doppler to assess portal vein Alcoholism -- last drink 07/04 as per patient -- no signs of alcohol withdrawal hemolytic anemia as per records Hyperglycemia rule out DM -- a1c 5.2 PT OT eval DVT prophylaxis. SCDs while Coumadin on hold if INR less than 2 Full code Disposition needs PT/OT may need Rehab, PT currently recommend to return home Admission and Anticipated Discharge Date Admission Date: July 14, 2020 Subjective Pt seen in follow-up s/p fall, left rib fracture, left side hematoma, COVID-19 pneumonia, UTI Pt is sitting up in bed, in NAD, breathing comfortably on RA States she feels better and that left back pain is better controlled now with lidocaine patch Has occasional cough, with clear sputum Denies shortness of breath, chest pain, fever, chills Worked w/ PT Review of Systems Review of Systems: All systems reviewed & are unremarkable except as noted in HPI & below Constitutional: no fever and no chills Respiratory: no cough and no dyspnea Cardiovascular: no chest pain and no palpitations Gastrointestinal: no abdominal pain, no nausea and no vomiting Physical Exam Physical Exam: General- oriented x 3, not in distress, speaks in sentences with no effort or accessory muscle use Eyes- anicteric Neck- no JVD Lungs- clear breath sounds bilaterally, no rales/wheezes, breathing comfortably on RA Positive areas of hematoma at the left posterolateral rib, left side of the back, with moderate edema, and tenderness Heart- normal rate, regular rhythm; no murmurs Abdomen- normal bowel sounds, nondistended, soft, nontender Extremities- no pretibial edema, no calf tenderness Neuro- alert, oriented x 3; no gross focal neurologic deficits Skin- warm & dry Results & Data Results & Data ([facility]) Vital Signs (Past 12 Hours) Vital Signs Temp Pulse Resp BP Pulse Ox 07/16/20 15:42 36.6 C 84 22 147/75 H 96 07/16/20 11:52 36.7 C 86 18 131/77 95 07/16/20 07:57 36.7 C 96 H 18 146/73 H 94 Laboratory Results 07/16/20 07/16/20 07/16/20 Range/Units 06:06 06:06 06:06 WBC (4.8-10.8) K/uL RBC (4.2-5.4) M/uL Hgb (12.0-16.0) g/dL Hct (37-47) % MCV (80-100) fL MCH (25-34) pg MCHC (32-36) g/dL RDW Std Deviation (36.4-46.3) fL RDW Coeff of Martinez (11.5-14.5) % Plt Count (130-400) K/uL MPV (7.4-10.4) fL Immature Gran % (Auto) % Neut % (Auto) % Lymph % (Auto) % Stewart % (Auto) % Eos % (Auto) % Baso % (Auto) % Neut # (Auto) (1.4-6.5) K/uL Lymph # (Auto) (1.2-3.4) K/uL Stewart # (Auto) (0.11-0.59) K/uL Eos # (Auto) (0-0.5) K/uL Baso # (Auto) (0-0.2) K/uL Immature Gran # (Auto) (0.00-0.02) K/uL Absolute Nucleated RBC (0-0) K/uL Nucleated RBC % (auto) % Giant Platelets RBC Morphology PT 15.4 H (9.0-12.0) Seconds INR 1.5 H (0.9-1.1) Sodium 137 (136-145) mmol/L Potassium 3.1 L (3.5-5.1) mmol/L Chloride 106 (98-107) mmol/L Carbon Dioxide 27 (21-32) mmol/L Anion Gap 4.0 (3-11) BUN 13 (7-18) mg/dl Creatinine 0.62 (0.6-1.2) mg/dl Est Cr Clr Drug Dosing 93.4 ml/min Est GFR ( Amer) 104.4 Est GFR (Non-Af Amer) 90.1 BUN/Creatinine Ratio 20.6 H (10-20) Glucose 96 (70-99) mg/dl Calcium 7.6 L (8.5-10.1) mg/dl Total Bilirubin 3.6 H (0.2-1) mg/dl Direct Bilirubin 1.6 H (0-0.2) mg/dl AST 67 H (15-37) U/L ALT 32 (12-78) U/L Alkaline Phosphatase 101 (45-117) U/L Total Protein 5.4 L (6.4-8.2) gm/dl Albumin 2.2 L (3.4-5.0) gm/dl 07/16/20 07/15/20 Range/Units 06:06 15:06 WBC 2.81 L 4.47 L (4.8-10.8) K/uL RBC 2.40 L 2.62 L (4.2-5.4) M/uL Hgb 7.6 L 8.1 L (12.0-16.0) g/dL Hct 22.2 L 23.5 L (37-47) % MCV 92.5 89.7 (80-100) fL MCH 31.7 30.9 (25-34) pg MCHC 34.2 34.5 (32-36) g/dL RDW Std Deviation 63.7 H 61.1 H (36.4-46.3) fL RDW Coeff of Martinez 19.8 H 19.5 H (11.5-14.5) % Plt Count 34 L 34 L (130-400) K/uL MPV 11.2 H 12.0 H (7.4-10.4) fL Immature Gran % (Auto) 0.7 2.2 % Neut % (Auto) 51.6 53.5 % Lymph % (Auto) 25.6 21.3 % Stewart % (Auto) 19.9 20.6 % Eos % (Auto) 1.8 1.3 % Baso % (Auto) 0.4 1.1 % Neut # (Auto) 1.45 2.39 (1.4-6.5) K/uL Lymph # (Auto) 0.72 L 0.95 L (1.2-3.4) K/uL Stewart # (Auto) 0.56 0.92 H (0.11-0.59) K/uL Eos # (Auto) 0.05 0.06 (0-0.5) K/uL Baso # (Auto) 0.01 0.05 (0-0.2) K/uL Immature Gran # (Auto) 0.02 0.10 H (0.00-0.02) K/uL Absolute Nucleated RBC 0.04 H (0-0) K/uL Nucleated RBC % (auto) 0.8 % Giant Platelets 1+ RBC Morphology Unremarkable PT (9.0-12.0) Seconds INR (0.9-1.1) Sodium (136-145) mmol/L Potassium (3.5-5.1) mmol/L Chloride (98-107) mmol/L Carbon Dioxide (21-32) mmol/L Anion Gap (3-11) BUN (7-18) mg/dl Creatinine (0.6-1.2) mg/dl Est Cr Clr Drug Dosing ml/min Est GFR ( Amer) Est GFR (Non-Af Amer) BUN/Creatinine Ratio (10-20) Glucose (70-99) mg/dl Calcium (8.5-10.1) mg/dl Total Bilirubin (0.2-1) mg/dl Direct Bilirubin (0-0.2) mg/dl AST (15-37) U/L ALT (12-78) U/L Alkaline Phosphatase (45-117) U/L Total Protein (6.4-8.2) gm/dl Albumin (3.4-5.0) gm/dl Medications Administered Current Inpatient Medications Acetaminophen (Acetaminophen 325 Mg Tab) 325 mg PO Q6H PRN PRN Reason: Mild Pain Stop: 08/13/20 08:57 Acetaminophen/Codeine Phosphate (Acetaminophen W/Codeine #3 1 Tab) 1 tab PO Q6H PRN PRN Reason: Pain Stop: 08/14/20 23:01 Folic Acid (Folic Acid 1 Mg Tab) [facility] [place]: 08/14/20 08:59 Last Admin: 07/16/20 07:53 Dose: 1 mg Documented by: Promethazine HCl 12.5 mg/ (Sodium Chloride) 50.5 mls @ 202 mls/hr IV Q6H PRN PRN Reason: Nausea And Vomiting Stop: 08/13/20 08:57 Lorazepam (Ativan) 1 mg in 2 mls @ 2 mls/min IV UD PRN; Protocol PRN Reason: EtOH Withdrawl AWSS Score 6,7 Stop: 08/13/20 08:57 Lorazepam (Ativan) 2 mg in 4 mls @ 4 mls/min IV UD PRN; Protocol PRN Reason: EtOH Withdrawl AWSS Score 8,9 Stop: 08/13/20 08:57 Lorazepam (Ativan) 3 mg in 6 mls @ 4 mls/min IV ONCE PRN; Protocol PRN Reason: EtOH Withdrawl AWSS Score >=10 Stop: 08/13/20 08:57 Ertapenem 1,000 mg/ Sodium (Chloride) 60 mls @ 100 mls/hr IV Q24H [facility] Stop: 07/27/20 10:59 Lidocaine (Lidocaine 5% 1 Patch) 1 patch TD [facility] Stop: 08/13/20 08:57 Last Admin: 07/16/20 07:52 Dose: 1 patch Documented by: Miscellaneous (Remove Lidoderm Patch) 1 ea N/A DAILY@2100 [facility] Stop: 08/13/20 20:59 Last Admin: 07/15/20 20:21 Dose: 1 ea Documented by: Multivitamins (Multivitamin Tab) 1 tab [facility] [place] Stop: 08/14/20 08:59 Last Admin: 07/16/20 07:51 Dose: 1 tab Documented by: Potassium Chloride (Potassium Chloride Crtab 20 Meq Tabcr) 40 meq PO NOW STA Stop: 07/16/20 16:30 Thiamine HCl (Thiamine Hcl 100 Mg Tab) 100 mg [facility] [place]: 08/14/20 08:59 Last Admin: 07/16/20 07:51 Dose: 100 mg Documented by:
[2020-07-16] MEDS ORDERED: BUPIVACAINE 0.5 % 5 MG/1 ML MPF 30ML VIAL ONE (17:20)
[2020-07-16] MEDS ORDERED: BACITRACIN INJ 50,000 UNIT VIAL ONE (17:20)
[2020-07-16] MEDS ORDERED: PHENYLEPHRINE 100MCG/ML 5ML SYR ONE (18:05)
[2020-07-17 06:59] LABS: Hematocrit (blood only) 23.1 % (37-47); Hemoglobin 7.7 g/dL (12.0-16.0); Mean Corpuscular Hemoglobin 31.6 pg (25-34); Mean Corpuscular Hgb Conc 33.3 g/dL (32-36); Mean Corpuscular Volume 94.7 fL (80-100); RDW Coefficient of Variation 20.3 % (11.5-14.5); RDW Standard Deviation 64.9 fL (36.4-46.3); Red Blood Count 2.44 M/uL (4.2-5.4); White Blood Count 2.76 K/uL (4.8-10.8)
[2020-07-17 07:09] LABS: Mean Platelet Volume 10.8 fL (7.4-10.4); Platelet Count 36 K/uL (130-400)
[2020-07-17 07:15] LABS: INR 1.4 (0.9-1.1)
[2020-07-17 07:17] LABS: Anisocytosis Present; Basophils # (auto) 0.01 K/uL (0-0.2); Basophils % (auto) 0.4 %; Echinocytes 1+; Eosinophils % (auto) 3.6 %; Immature Granulocytes # (auto) 0.01 K/uL (0.00-0.02); Immature Granulocytes % (auto) 0.4 %; Lymphocytes # (auto) 0.62 K/uL (1.2-3.4); Lymphocytes % (auto) 22.5 %; Monocytes # (auto) 0.51 K/uL (0.11-0.59); Monocytes % (auto) 18.5 %; Neutrophils # (auto) 1.51 K/uL (1.4-6.5); Neutrophils % (auto) 54.6 %
[2020-07-17 07:34] LABS: BUN Creatinine Ratio 16.9 (10-20); Calcium 7.7 mg/dl (8.5-10.1); Creatinine Clr Calc Pharmacy 102.2 ml/min; Est GFR (Non-African American) 93.2; Potassium 3.5 mmol/L (3.5-5.1)
[2020-07-17] MEDS: MULTIVITAMIN TAB PO SCH (07:53)
[2020-07-17] MEDS: LIDOCAINE 5% 1 PATCH TD SCH (07:53)
[2020-07-17] MEDS: THIAMINE HCL 100 MG TAB PO SCH (07:53)
--- NOTE | 2020-07-17 07:56 | Hospitalist Progress Note ---
Date of Service July 17, 2020 Assessment & Plan (1) Fall: (2) Left rib fracture: (3) Anemia: Acute blood loss anemia Secondary to traumatic bleeding hematoma left chest wall, left flank, in the setting of warfarin therapy 7th Left Rib Fracture Coumadin coagulopathy, history of portal vein thrombosis -- CT chest: 1. Large hematoma within the left posterolateral chest wall that measures approximately 25 x 16.3 x 4.5 cm. This contains a 4 cm focus of active extravasation. 2. Acute mildly displaced fracture of the lateral left seventh rib. No pneumothorax. Trace left pleural effusion. Old left fifth and sixth rib fractures. 3. Multifocal groundglass opacities within the lungs. These are likely infectious or inflammatory. However, a follow-up chest CT in 3 months to ensure resolution is recommended. 4. Cirrhosis. Manifestations of portal hypertension. -- repeat CT Chest: 1. Evaluation somewhat limited in that the examination was performed without intravenous contrast 2. Difficult to measure, persistent left chest wall hematoma estimated to measure 18 x 13.7 x 4.6 cm. 3. Acute fracture the left lateral seventh rib 4. Cirrhosis 5. Cholelithiasis 6. Multifocal groundglass pulmonary opacities likely infectious/inflammatory. As previously stated 3 month follow-up CT scan is recommended 5. Cholelithiasis. -- Hg dropped to 6.6 2 units pRBC ordered HemoGlobin increased to 8 - current Hgb 7.6, cont. to monitor CBC -- Plt 42k given 1 unit platelets Plt 34 Acute on chronic thrombocytopenia likely secondary to consumption from large hematoma Repeat platelet 34, transfused another 1 unit - no change in plt count -- INR 3.2- given Vitk 5mg po --> INR 1.5 -- monitor INR -- Gen Surg consulted, no surgical intervention at this time Traumatic rib fractures -- Incentive spirometry pain control -- check left shoulder xray COVID-19 pneumonia -- no hypoxia -- continue to monitor Continue isolation hypertension, blood pressure on the lower side -- resume Atenolol alcoholic cirrhosis -- T sujatha 4 Ct chest showing cirrhosis, portal hypertension -- monitor LFTs GI consulted - recommend Abd US after acute infection resolved history of portal vein thrombosis -- last episode 15 yrs ago as per patient -- on coumadin since -- INR 3.4 given Vit K and FFP in light of hematoma -- INR 1.5 --Resume Coumadin in 2 days if patient remains stable, CBC stable -will need liver US/doppler to assess portal vein Alcoholism -- last drink 07/04 as per patient -- no signs of alcohol withdrawal hemolytic anemia as per records Hyperglycemia rule out DM -- a1c 5.2 PT OT eval DVT prophylaxis. SCDs while Coumadin on hold if INR less than 2 Full code Disposition needs PT/OT may need Rehab, PT currently recommend to return home Admission and Anticipated Discharge Date Admission Date: July 14, 2020 Subjective Pt seen in follow-up s/p fall, left rib fracture, left side hematoma, COVID-19 pneumonia, UTI Pt is sitting up in bed, in NAD, breathing comfortably on RA States she feels better and that left back pain is better controlled now with lidocaine patch Has occasional cough, with clear sputum Denies shortness of breath, chest pain, fever, chills Worked w/ PT Review of Systems Review of Systems: All systems reviewed & are unremarkable except as noted in HPI & below Constitutional: no fever and no chills Respiratory: + cough (improved); no dyspnea Cardiovascular: no chest pain and no palpitations Gastrointestinal: no abdominal pain, no nausea and no vomiting Physical Exam Physical Exam: General- oriented x 3, not in distress, speaks in sentences with no effort or accessory muscle use Eyes- anicteric Neck- no JVD Lungs- clear breath sounds bilaterally, no rales/wheezes, breathing comfortably on RA Positive areas of hematoma at the left posterolateral rib, left side of the back, with moderate edema, and tenderness Heart- normal rate, regular rhythm; no murmurs Abdomen- normal bowel sounds, nondistended, soft, nontender Extremities- no pretibial edema, no calf tenderness Neuro- alert, oriented x 3; no gross focal neurologic deficits Skin- warm & dry Results & Data Results & Data ([facility]) Vital Signs (Past 12 Hours) Vital Signs Temp Pulse Pulse Resp BP BP Pulse Ox 07/17/20 03:22 36.6 C 75 18 124/76 97 07/17/20 02:19 36.6 C 72 18 111/74 97 07/17/20 01:49 36.6 C 80 18 134/72 97 07/17/20 01:34 36.6 C 83 18 144/79 H 95 07/17/20 01:30 36.6 C 77 18 144/79 H 95 07/17/20 01:15 36.5 C 89 18 150/79 H 95 07/17/20 00:35 81 07/17/20 00:00 36.6 C 89 19 136/62 92 07/16/20 20:00 97 Laboratory Results 07/17/20 07/17/20 07/17/20 Range/Units 06:39 06:39 06:39 WBC 2.76 L (4.8-10.8) K/uL RBC 2.44 L (4.2-5.4) M/uL Hgb 7.7 L (12.0-16.0) g/dL Hct 23.1 L (37-47) % MCV 94.7 (80-100) fL MCH 31.6 (25-34) pg MCHC 33.3 (32-36) g/dL RDW Std Deviation 64.9 H (36.4-46.3) fL RDW Coeff of Martinez 20.3 H (11.5-14.5) % Plt Count 36 L (130-400) K/uL MPV 10.8 H (7.4-10.4) fL Immature Gran % (Auto) 0.4 % Neut % (Auto) 54.6 % Lymph % (Auto) 22.5 % Gentry % (Auto) 18.5 % Eos % (Auto) 3.6 % Baso % (Auto) 0.4 % Neut # (Auto) 1.51 (1.4-6.5) K/uL Lymph # (Auto) 0.62 L (1.2-3.4) K/uL Gentry # (Auto) 0.51 (0.11-0.59) K/uL Eos # (Auto) 0.10 (0-0.5) K/uL Baso # (Auto) 0.01 (0-0.2) K/uL Immature Gran # (Auto) 0.01 (0.00-0.02) K/uL Anisocytosis Present Echinocytes 1+ PT 15.0 H (9.0-12.0) Seconds INR 1.4 H (0.9-1.1) Sodium 140 (136-145) mmol/L Potassium 3.5 (3.5-5.1) mmol/L Chloride 109 H (98-107) mmol/L Carbon Dioxide 26 (21-32) mmol/L Anion Gap 5.0 (3-11) BUN 9 (7-18) mg/dl Creatinine 0.56 L (0.6-1.2) mg/dl Est Cr Clr Drug Dosing 102.2 ml/min Est GFR ( Amer) 108.0 Est GFR (Non-Af Amer) 93.2 BUN/Creatinine Ratio 16.9 (10-20) Glucose 97 (70-99) mg/dl Calcium 7.7 L (8.5-10.1) mg/dl Total Bilirubin (0.2-1) mg/dl Direct Bilirubin (0-0.2) mg/dl AST (15-37) U/L ALT (12-78) U/L Alkaline Phosphatase (45-117) U/L Total Protein (6.4-8.2) gm/dl Albumin (3.4-5.0) gm/dl Blood Type Antibody Screen Crossmatch 07/16/20 07/14/20 Range/Units 06:06 05:25 WBC (4.8-10.8) K/uL RBC (4.2-5.4) M/uL Hgb (12.0-16.0) g/dL Hct (37-47) % MCV (80-100) fL MCH (25-34) pg MCHC (32-36) g/dL RDW Std Deviation (36.4-46.3) fL RDW Coeff of Martinez (11.5-14.5) % Plt Count (130-400) K/uL MPV (7.4-10.4) fL Immature Gran % (Auto) % Neut % (Auto) % Lymph % (Auto) % Gentry % (Auto) % Eos % (Auto) % Baso % (Auto) % Neut # (Auto) (1.4-6.5) K/uL Lymph # (Auto) (1.2-3.4) K/uL Gentry # (Auto) (0.11-0.59) K/uL Eos # (Auto) (0-0.5) K/uL Baso # (Auto) (0-0.2) K/uL Immature Gran # (Auto) (0.00-0.02) K/uL Anisocytosis Echinocytes PT (9.0-12.0) Seconds INR (0.9-1.1) Sodium (136-145) mmol/L Potassium (3.5-5.1) mmol/L Chloride (98-107) mmol/L Carbon Dioxide (21-32) mmol/L Anion Gap (3-11) BUN (7-18) mg/dl Creatinine (0.6-1.2) mg/dl Est Cr Clr Drug Dosing ml/min Est GFR ( Amer) Est GFR (Non-Af Amer) BUN/Creatinine Ratio (10-20) Glucose (70-99) mg/dl Calcium (8.5-10.1) mg/dl Total Bilirubin 3.6 H (0.2-1) mg/dl Direct Bilirubin 1.6 H (0-0.2) mg/dl AST 67 H (15-37) U/L ALT 32 (12-78) U/L Alkaline Phosphatase 101 (45-117) U/L Total Protein 5.4 L (6.4-8.2) gm/dl Albumin 2.2 L (3.4-5.0) gm/dl Blood Type O Positive Antibody Screen NEGATIVE Crossmatch See Detail Medications Administered Current Inpatient Medications Acetaminophen (Acetaminophen 325 Mg Tab) 325 mg PO Q6H PRN PRN Reason: Mild Pain Stop: 08/13/20 08:57 Acetaminophen/Codeine Phosphate (Acetaminophen W/Codeine #3 1 Tab) 1 tab PO Q6H PRN PRN Reason: Pain Stop: 08/14/20 23:01 Folic Acid (Folic Acid 1 Mg Tab) 1 mg PO [facility] Stop: 08/14/20 08:59 Last Admin: 07/16/20 07:53 Dose: 1 mg Documented by: Promethazine HCl 12.5 mg/ (Sodium Chloride) 50.5 mls @ 202 mls/hr IV Q6H PRN PRN Reason: Nausea And Vomiting Stop: 08/13/20 08:57 Lorazepam (Ativan) 1 mg in 2 mls @ 2 mls/min IV UD PRN; Protocol PRN Reason: EtOH Withdrawl AWSS Score 6,7 Stop: 08/13/20 08:57 Lorazepam (Ativan) 2 mg in 4 mls @ 4 mls/min IV UD PRN; Protocol PRN Reason: EtOH Withdrawl AWSS Score 8,9 Stop: 08/13/20 08:57 Lorazepam (Ativan) 3 mg in 6 mls @ 4 mls/min IV ONCE PRN; Protocol PRN Reason: EtOH Withdrawl AWSS Score >=10 Stop: 08/13/20 08:57 Ertapenem 1,000 mg/ Sodium (Chloride) 60 mls @ 100 mls/hr IV Q24H [facility] Stop: 07/27/20 10:59 Lidocaine (Lidocaine 5% 1 Patch) 1 patch TD [facility] Stop: 08/13/20 08:57 Last Admin: 07/16/20 07:52 Dose: 1 patch Documented by: Miscellaneous (Remove Lidoderm Patch) 1 ea N/A DAILY@2100 [facility] Stop: 08/13/20 20:59 Last Admin: 07/16/20 21:32 Dose: 1 ea Documented by: Multivitamins (Multivitamin Tab) 1 tab PO [facility] Stop: 08/14/20 08:59 Last Admin: 07/16/20 07:51 Dose: 1 tab Documented by: Thiamine HCl (Thiamine Hcl 100 Mg Tab) 100 mg PO [facility] Stop: 08/14/20 08:59 Last Admin: 07/16/20 07:51 Dose: 100 mg Documented by:
[2020-07-17] MEDS ORDERED: POTASSIUM CHLORIDE CRTAB 20 MEQ TABCR PO STA (08:16)
[2020-07-17] MEDS: ACETAMINOPHEN W/CODEINE #3 1 TAB PO PRN (08:48)
[2020-07-17] MEDS: FOLIC ACID 1 MG TAB PO SCH (10:55)
[2020-07-17] MEDS: ERTAPENEM SODIUM 1,000 MG in SODIUM CHLORIDE 0.9% 50 ML IV SCH (10:55)
[2020-07-18 07:49] LABS: Hematocrit (blood only) 23.9 % (37-47); Hemoglobin 7.9 g/dL (12.0-16.0); Mean Corpuscular Hgb Conc 33.1 g/dL (32-36); Mean Corpuscular Volume 96.8 fL (80-100); RDW Coefficient of Variation 20.7 % (11.5-14.5); RDW Standard Deviation 68.5 fL (36.4-46.3); Red Blood Count 2.47 M/uL (4.2-5.4); White Blood Count 3.09 K/uL (4.8-10.8)
[2020-07-18 07:57] LABS: Mean Platelet Volume 11.6 fL (7.4-10.4); Platelet Count 48 K/uL (130-400)
[2020-07-18 07:58] LABS: INR 1.3 (0.9-1.1)
[2020-07-18 08:25] LABS: Albumin Level 2.2 gm/dl (3.4-5.0); BUN Creatinine Ratio 19.3 (10-20); Calcium 8.6 mg/dl (8.5-10.1); Creatinine Clr Calc Pharmacy 93.8 ml/min; Est GFR (Non-African American) 90.6; Potassium 4.1 mmol/L (3.5-5.1)
[2020-07-18] MEDS: ACETAMINOPHEN W/CODEINE #3 1 TAB PO PRN ×2 (08:25→22:13)
[2020-07-18] MEDS: MULTIVITAMIN TAB PO SCH (08:26)
[2020-07-18] MEDS: FOLIC ACID 1 MG TAB PO SCH (08:26)
[2020-07-18] MEDS: LIDOCAINE 5% 1 PATCH TD SCH (08:26)
[2020-07-18] MEDS: THIAMINE HCL 100 MG TAB PO SCH (08:27)
[2020-07-18 08:28] LABS: Albumin Globulin Ratio 0.6 (0.9-2); Bilirubin,Total 4.2 mg/dl (0.2-1); Globulin 3.5 gm/dl (2.5-4.0); Total Protein 5.7 gm/dl (6.4-8.2)
--- NOTE | 2020-07-18 08:30 | Hospitalist Progress Note ---
Date of Service July 18, 2020 Assessment & Plan (1) Fall: (2) Left rib fracture: (3) Anemia: Acute blood loss anemia Secondary to traumatic bleeding hematoma left chest wall, left flank, in the setting of warfarin therapy 7th Left Rib Fracture Coumadin coagulopathy, history of portal vein thrombosis -- CT chest: 1. Large hematoma within the left posterolateral chest wall that measures approximately 25 x 16.3 x 4.5 cm. This contains a 4 cm focus of active extravasation. 2. Acute mildly displaced fracture of the lateral left seventh rib. No pneumothorax. Trace left pleural effusion. Old left fifth and sixth rib fractures. 3. Multifocal groundglass opacities within the lungs. These are likely infectious or inflammatory. However, a follow-up chest CT in 3 months to ensure resolution is recommended. 4. Cirrhosis. Manifestations of portal hypertension. -- repeat CT Chest: 1. Evaluation somewhat limited in that the examination was performed without intravenous contrast 2. Difficult to measure, persistent left chest wall hematoma estimated to measure 18 x 13.7 x 4.6 cm. 3. Acute fracture the left lateral seventh rib 4. Cirrhosis 5. Cholelithiasis 6. Multifocal groundglass pulmonary opacities likely infectious/inflammatory. As previously stated 3 month follow-up CT scan is recommended 5. Cholelithiasis. -- Hg dropped to 6.6 2 units pRBC ordered HemoGlobin increased to 8 - current Hgb 7.9 (stable), cont. to monitor CBC -- Plt 42k given 1 unit platelets Plt 34 Acute on chronic thrombocytopenia likely secondary to consumption from large hematoma Repeat platelet 34, transfused another 1 unit - no change in plt count -- INR 3.2- given Vitk 5mg po --> INR 1.5 -- monitor INR -- Gen Surg consulted, no surgical intervention at this time Traumatic rib fractures -- Incentive spirometry pain control COVID-19 pneumonia -- no hypoxia -- continue to monitor Continue isolation hypertension, blood pressure on the lower side -- resume Atenolol alcoholic cirrhosis -- T sujatha 4 Ct chest showing cirrhosis, portal hypertension -- monitor LFTs GI consulted - recommend Abd US after acute infection resolved history of portal vein thrombosis -- last episode 15 yrs ago as per patient -- on coumadin since -- INR 3.4 given Vit K and FFP in light of hematoma -- INR 1.5 --Resume Coumadin in 2 days if patient remains stable, CBC stable -will need liver US/doppler to assess portal vein - will start lower dose warfarin (07/18/2020), cont. to monitor H&H Alcoholism -- last drink 07/04 as per patient -- no signs of alcohol withdrawal UTI - ESBL E.coli - cont. ertapenem while inpt hemolytic anemia as per records Hyperglycemia rule out DM -- a1c 5.2 PT OT eval DVT prophylaxis. SCDs while Coumadin on hold if INR less than 2 Full code Disposition needs PT/OT may need Rehab, PT currently recommend to return home Admission and Anticipated Discharge Date Admission Date: July 14, 2020 Subjective Pt seen in follow-up s/p fall, left rib fracture, left side hematoma, COVID-19 pneumonia, UTI Pt is sitting up in bed, in NAD, breathing comfortably on RA Continues to have back pain d/t hematoma but well controlled with medication Has occasional cough, with clear sputum Denies shortness of breath, chest pain, fever, chills Worked w/ PT Review of Systems Review of Systems: All systems reviewed & are unremarkable except as noted in HPI & below As per HPI, all 10 systems reviewed, all other ROS negative Constitutional: no fever and no chills Respiratory: + cough (improved); no dyspnea Cardiovascular: no chest pain and no palpitations Gastrointestinal: no abdominal pain, no nausea and no vomiting Physical Exam Physical Exam: General- oriented x 3, not in distress, speaks in sentences with no effort or accessory muscle use Eyes- anicteric Neck- no JVD Lungs- clear breath sounds bilaterally, no rales/wheezes, breathing comfortably on RA Back - large areas of hematoma/ecchymosis at the left posterolateral rib, left side of the back, with moderate edema, and tenderness Heart- normal rate, regular rhythm; no murmurs Abdomen- normal bowel sounds, nondistended, soft, nontender Extremities- no pretibial edema, no calf tenderness Neuro- alert, oriented x 3; no gross focal neurologic deficits Skin- warm & dry Results & Data Results & Data ([facility]) Vital Signs (Past 12 Hours) Vital Signs Temp Pulse Pulse Resp BP Pulse Ox 07/18/20 07:48 36.7 C 80 19 146/80 H 96 07/18/20 03:42 36.4 C L 86 22 151/70 H 95 07/18/20 00:22 84 07/18/20 00:08 36.7 C 93 H 20 131/76 96 Laboratory Results 07/18/20 07/18/20 07/18/20 Range/Units 06:39 06:39 06:39 WBC 3.09 L (4.8-10.8) K/uL RBC 2.47 L (4.2-5.4) M/uL Hgb 7.9 L (12.0-16.0) g/dL Hct 23.9 L (37-47) % MCV 96.8 (80-100) fL MCH 32.0 (25-34) pg MCHC 33.1 (32-36) g/dL RDW Std Deviation 68.5 H (36.4-46.3) fL RDW Coeff of Martinez 20.7 H (11.5-14.5) % Plt Count 48 L (130-400) K/uL MPV 11.6 H (7.4-10.4) fL PT 14.0 H (9.0-12.0) Seconds INR 1.3 H (0.9-1.1) Sodium 139 (136-145) mmol/L Potassium 4.1 D (3.5-5.1) mmol/L Chloride 109 H (98-107) mmol/L Carbon Dioxide 26 (21-32) mmol/L Anion Gap 4.0 (3-11) BUN 12 (7-18) mg/dl Creatinine 0.61 (0.6-1.2) mg/dl Est Cr Clr Drug Dosing 93.8 ml/min Est GFR ( Amer) 105.0 Est GFR (Non-Af Amer) 90.6 BUN/Creatinine Ratio 19.3 (10-20) Glucose 89 (70-99) mg/dl Calcium 8.6 (8.5-10.1) mg/dl Total Bilirubin 4.2 H (0.2-1) mg/dl AST 66 H (15-37) U/L ALT 33 (12-78) U/L Alkaline Phosphatase 135 H (45-117) U/L Total Protein 5.7 L (6.4-8.2) gm/dl Albumin 2.2 L (3.4-5.0) gm/dl Globulin 3.5 (2.5-4.0) gm/dl Albumin/Globulin Ratio 0.6 L (0.9-2) Medications Administered Current Inpatient Medications Acetaminophen (Acetaminophen 325 Mg Tab) 325 mg PO Q6H PRN PRN Reason: Mild Pain Stop: 08/13/20 08:57 Acetaminophen/Codeine Phosphate (Acetaminophen W/Codeine #3 1 Tab) 1 tab PO Q6H PRN PRN Reason: Pain Stop: 08/14/20 23:01 Last Admin: 07/18/20 08:25 Dose: 1 tab Documented by: Folic Acid (Folic Acid 1 Mg Tab) [address] [facility] Stop: 08/14/20 08:59 Last Admin: 07/18/20 08:26 Dose: 1 mg Documented by: Promethazine HCl 12.5 mg/ (Sodium Chloride) 50.5 mls @ 202 mls/hr IV Q6H PRN PRN Reason: Nausea And Vomiting Stop: 08/13/20 08:57 Lorazepam (Ativan) 1 mg in 2 mls @ 2 mls/min IV UD PRN; Protocol PRN Reason: EtOH Withdrawl AWSS Score 6,7 Stop: 08/13/20 08:57 Lorazepam (Ativan) 2 mg in 4 mls @ 4 mls/min IV UD PRN; Protocol PRN Reason: EtOH Withdrawl AWSS Score 8,9 Stop: 08/13/20 08:57 Lorazepam (Ativan) 3 mg in 6 mls @ 4 mls/min IV ONCE PRN; Protocol PRN Reason: EtOH Withdrawl AWSS Score >=10 Stop: 08/13/20 08:57 Ertapenem 1,000 mg/ Sodium (Chloride) 60 mls @ 100 mls/hr IV Q24H [facility] Stop: 07/27/20 10:59 Last Infusion: 07/17/20 13:06 Dose: Infused Documented by: Lidocaine (Lidocaine 5% 1 Patch) [address] [facility] Stop: 08/13/20 08:57 Last Admin: 07/18/20 08:26 Dose: 1 patch Documented by: Miscellaneous (Remove Lidoderm Patch) 1 ea N/A DAILY@2100 [facility] Stop: 08/13/20 20:59 Last Admin: 07/17/20 21:39 Dose: 1 ea Documented by: Multivitamins (Multivitamin Tab) [address] [facility] Stop: 08/14/20 08:59 Last Admin: 07/18/20 08:26 Dose: 1 tab Documented by: Thiamine HCl (Thiamine Hcl 100 Mg Tab) [facility] Stop: 08/14/20 08:59 Last Admin: 07/18/20 08:27 Dose: 100 mg Documented by:
[2020-07-18 08:57] LABS: Anisocytosis Present; Basophils # (auto) 0.02 K/uL (0-0.2); Basophils % (auto) 0.6 %; Eosinophils # (auto) 0.12 K/uL (0-0.5); Eosinophils % (auto) 3.9 %; Immature Granulocytes # (auto) 0.01 K/uL (0.00-0.02); Immature Granulocytes % (auto) 0.3 %; Lymphocytes # (auto) 0.79 K/uL (1.2-3.4); Lymphocytes % (auto) 25.6 %; Monocytes # (auto) 0.63 K/uL (0.11-0.59); Monocytes % (auto) 20.4 %; Neutrophils # (auto) 1.52 K/uL (1.4-6.5); Neutrophils % (auto) 49.2 %
[2020-07-18] MEDS: ERTAPENEM SODIUM 1,000 MG in SODIUM CHLORIDE 0.9% 50 ML IV SCH (11:53)
[2020-07-18] MEDS ORDERED: WARFARIN SOD 1.25 MG TAB PO ONE (16:46)
[2020-07-19 08:03] LABS: Hematocrit (blood only) 24.2 % (37-47); Hemoglobin 8.1 g/dL (12.0-16.0); Mean Corpuscular Hemoglobin 32.7 pg (25-34); Mean Corpuscular Hgb Conc 33.5 g/dL (32-36); Mean Corpuscular Volume 97.6 fL (80-100); Nucleated RBC # (auto) 0.02 K/uL (0-0); RDW Coefficient of Variation 20.5 % (11.5-14.5); RDW Standard Deviation 70.5 fL (36.4-46.3); Red Blood Count 2.48 M/uL (4.2-5.4); White Blood Count 2.44 K/uL (4.8-10.8)
[2020-07-19 08:04] LABS: INR 1.4 (0.9-1.1); Prothrombin Time 14.6 Seconds (9.0-12.0)
[2020-07-19 08:20] LABS: Platelet Count 53 K/uL (130-400)
[2020-07-19 08:25] LABS: Albumin Level 2.1 gm/dl (3.4-5.0); Calcium 8.6 mg/dl (8.5-10.1); Creatinine Clr Calc Pharmacy 101.1 ml/min; Est GFR (African American) 106.7; Est GFR (Non-African American) 92.1; Potassium 4.3 mmol/L (3.5-5.1)
[2020-07-19 08:28] LABS: Albumin Globulin Ratio 0.6 (0.9-2); Bilirubin,Total 4.7 mg/dl (0.2-1); Globulin 3.5 gm/dl (2.5-4.0); Total Protein 5.6 gm/dl (6.4-8.2)
[2020-07-19 08:35] LABS: Anisocytosis Present; Basophils # (auto) 0.03 K/uL (0-0.2); Basophils % (auto) 1.2 %; Eosinophils % (auto) 4.1 %; Immature Granulocytes # (auto) 0.01 K/uL (0.00-0.02); Immature Granulocytes % (auto) 0.4 %; Lymphocytes # (auto) 0.59 K/uL (1.2-3.4); Lymphocytes % (auto) 24.2 %; Monocytes # (auto) 0.59 K/uL (0.11-0.59); Monocytes % (auto) 24.2 %; Neutrophils # (auto) 1.12 K/uL (1.4-6.5); Neutrophils % (auto) 45.9 %
--- NOTE | 2020-07-19 08:40 | Hospitalist Progress Note ---
Date of Service July 19, 2020 Assessment & Plan (1) Fall: (2) Left rib fracture: (3) Anemia: Acute blood loss anemia Secondary to traumatic bleeding hematoma left chest wall, left flank, in the setting of warfarin therapy 7th Left Rib Fracture Coumadin coagulopathy, history of portal vein thrombosis -- CT chest: 1. Large hematoma within the left posterolateral chest wall that measures approximately 25 x 16.3 x 4.5 cm. This contains a 4 cm focus of active extravasation. 2. Acute mildly displaced fracture of the lateral left seventh rib. No pneumothorax. Trace left pleural effusion. Old left fifth and sixth rib fractures. 3. Multifocal groundglass opacities within the lungs. These are likely infectious or inflammatory. However, a follow-up chest CT in 3 months to ensure resolution is recommended. 4. Cirrhosis. Manifestations of portal hypertension. -- repeat CT Chest: 1. Evaluation somewhat limited in that the examination was performed without intravenous contrast 2. Difficult to measure, persistent left chest wall hematoma estimated to measure 18 x 13.7 x 4.6 cm. 3. Acute fracture the left lateral seventh rib 4. Cirrhosis 5. Cholelithiasis 6. Multifocal groundglass pulmonary opacities likely infectious/inflammatory. As previously stated 3 month follow-up CT scan is recommended 5. Cholelithiasis. -- Hg dropped to 6.6 2 units pRBC ordered HemoGlobin increased to 8 - current Hgb 8.3 (stable), cont. to monitor CBC -- Plt 42k given 1 unit platelets Plt 34 Acute on chronic thrombocytopenia likely secondary to consumption from large hematoma Repeat platelet 34, transfused another 1 unit - no change in plt count Currently improved - 66 (07/20/20) -- INR 3.2- given Vitk 5mg po --> INR 1.5 -- monitor INR - current INR 1.4 -- Gen Surg consulted, no surgical intervention at this time Traumatic rib fractures -- Incentive spirometry pain control COVID-19 pneumonia -- no hypoxia -- continue to monitor Continue isolation hypertension, blood pressure on the lower side -- resume Atenolol alcoholic cirrhosis -- T sujatha 4 Ct chest showing cirrhosis, portal hypertension -- monitor LFTs GI consulted - recommend Abd US after acute infection resolved history of portal vein thrombosis -- last episode 15 yrs ago as per patient -- on coumadin since -- INR 3.4 given Vit K and FFP in light of hematoma -- INR 1.5 --Resume Coumadin in 2 days if patient remains stable, CBC stable --will need liver US/doppler as outpt to assess portal vein --started warfarin (07/18/2020), cont. to monitor H&H --Hgb stable, currently 8.3 (07/20/20) Alcoholism -- last drink 07/04 as per patient -- no signs of alcohol withdrawal -- pt counselled, she is interested in full abstinence from alcohol UTI - ESBL E.coli on U cultx - pt denies having symptoms, therefore ? UTI - treated w/ ertapenem while inpt, will Rx macrobid (given sensitivities) for 3 more days as outpt - follow up as outpt hemolytic anemia as per records Hyperglycemia rule out DM -- a1c 5.2 PT OT eval DVT prophylaxis. SCDs while Coumadin on hold if INR less than 2 Full code Disposition needs PT/OT may need Rehab, PT currently recommend to return home Admission and Anticipated Discharge Date Admission Date: July 14, 2020 Subjective Pt seen in follow-up s/p fall, left rib fracture, left side hematoma, COVID-19 pneumonia, UTI Pt is sitting up in bed, in NAD, breathing comfortably on RA Continues to have back pain d/t hematoma but well controlled with medication Has occasional cough, with clear sputum Denies shortness of breath, chest pain, fever, chills Worked w/ PT Review of Systems Review of Systems: All systems reviewed & are unremarkable except as noted in HPI & below As per HPI, all 10 systems reviewed, all other ROS negative Constitutional: no fever and no chills Respiratory: + cough (improved); no dyspnea Cardiovascular: no chest pain and no palpitations Gastrointestinal: no abdominal pain, no nausea and no vomiting Physical Exam Physical Exam: General- oriented x 3, not in distress, speaks in sentences with no effort or accessory muscle use Eyes- anicteric Neck- no JVD Lungs- clear breath sounds bilaterally, no rales/wheezes, breathing comfortably on RA Back - large areas of hematoma/ecchymosis at the left posterolateral rib, left side of the back, with moderate edema, and tenderness Heart- normal rate, regular rhythm; no murmurs Abdomen- normal bowel sounds, nondistended, soft, nontender Extremities- no pretibial edema, no calf tenderness Neuro- alert, oriented x 3; no gross focal neurologic deficits Skin- warm & dry Results & Data Results & Data ([facility]) Vital Signs (Past 12 Hours) Vital Signs Temp Pulse Pulse Resp BP Pulse Ox 07/19/20 08:00 36.8 C 99 H 18 132/78 95 07/19/20 04:11 36.9 C 83 16 132/74 97 07/18/20 23:49 37.0 C 82 16 138/83 98 07/18/20 22:00 79 Laboratory Results 07/19/20 07/19/20 07/19/20 Range/Units 07:29 07:29 07:29 WBC 2.44 L (4.8-10.8) K/uL RBC 2.48 L (4.2-5.4) M/uL Hgb 8.1 L (12.0-16.0) g/dL Hct 24.2 L (37-47) % MCV 97.6 (80-100) fL MCH 32.7 (25-34) pg MCHC 33.5 (32-36) g/dL RDW Std Deviation 70.5 H (36.4-46.3) fL RDW Coeff of Martinez 20.5 H (11.5-14.5) % Plt Count 53 L (130-400) K/uL MPV 11.0 H (7.4-10.4) fL Immature Gran % (Auto) 0.4 % Neut % (Auto) 45.9 % Lymph % (Auto) 24.2 % Mineral % (Auto) 24.2 % Eos % (Auto) 4.1 % Baso % (Auto) 1.2 % Neut # (Auto) 1.12 L (1.4-6.5) K/uL Lymph # (Auto) 0.59 L (1.2-3.4) K/uL Mineral # (Auto) 0.59 (0.11-0.59) K/uL Eos # (Auto) 0.10 (0-0.5) K/uL Baso # (Auto) 0.03 (0-0.2) K/uL Immature Gran # (Auto) 0.01 (0.00-0.02) K/uL Absolute Nucleated RBC 0.02 H (0-0) K/uL Nucleated RBC % (auto) 1.0 % Anisocytosis Present PT 14.6 H (9.0-12.0) Seconds INR 1.4 H (0.9-1.1) Sodium 141 (136-145) mmol/L Potassium 4.3 (3.5-5.1) mmol/L Chloride 110 H (98-107) mmol/L Carbon Dioxide 25 (21-32) mmol/L Anion Gap 6.0 (3-11) BUN 12 (7-18) mg/dl Creatinine 0.58 L (0.6-1.2) mg/dl Est Cr Clr Drug Dosing 101.1 ml/min Est GFR ( Amer) 106.7 Est GFR (Non-Af Amer) 92.1 BUN/Creatinine Ratio 20.0 (10-20) Glucose 82 (70-99) mg/dl Calcium 8.6 (8.5-10.1) mg/dl Total Bilirubin 4.7 H (0.2-1) mg/dl AST 58 H (15-37) U/L ALT 30 (12-78) U/L Alkaline Phosphatase 117 (45-117) U/L Total Protein 5.6 L (6.4-8.2) gm/dl Albumin 2.1 L (3.4-5.0) gm/dl Globulin 3.5 (2.5-4.0) gm/dl Albumin/Globulin Ratio 0.6 L (0.9-2) 07/18/20 Range/Units 06:39 WBC (4.8-10.8) K/uL RBC (4.2-5.4) M/uL Hgb (12.0-16.0) g/dL Hct (37-47) % MCV (80-100) fL MCH (25-34) pg MCHC (32-36) g/dL RDW Std Deviation (36.4-46.3) fL RDW Coeff of Martinez (11.5-14.5) % Plt Count (130-400) K/uL MPV (7.4-10.4) fL Immature Gran % (Auto) 0.3 % Neut % (Auto) 49.2 % Lymph % (Auto) 25.6 % Mineral % (Auto) 20.4 % Eos % (Auto) 3.9 % Baso % (Auto) 0.6 % Neut # (Auto) 1.52 (1.4-6.5) K/uL Lymph # (Auto) 0.79 L (1.2-3.4) K/uL Mineral # (Auto) 0.63 H (0.11-0.59) K/uL Eos # (Auto) 0.12 (0-0.5) K/uL Baso # (Auto) 0.02 (0-0.2) K/uL Immature Gran # (Auto) 0.01 (0.00-0.02) K/uL Absolute Nucleated RBC (0-0) K/uL Nucleated RBC % (auto) % Anisocytosis Present PT (9.0-12.0) Seconds INR (0.9-1.1) Sodium (136-145) mmol/L Potassium (3.5-5.1) mmol/L Chloride (98-107) mmol/L Carbon Dioxide (21-32) mmol/L Anion Gap (3-11) BUN (7-18) mg/dl Creatinine (0.6-1.2) mg/dl Est Cr Clr Drug Dosing ml/min Est GFR ( Amer) Est GFR (Non-Af Amer) BUN/Creatinine Ratio (10-20) Glucose (70-99) mg/dl Calcium (8.5-10.1) mg/dl Total Bilirubin (0.2-1) mg/dl AST (15-37) U/L ALT (12-78) U/L Alkaline Phosphatase (45-117) U/L Total Protein (6.4-8.2) gm/dl Albumin (3.4-5.0) gm/dl Globulin (2.5-4.0) gm/dl Albumin/Globulin Ratio (0.9-2) Medications Administered Current Inpatient Medications Acetaminophen (Acetaminophen 325 Mg Tab) 325 mg PO Q6H PRN PRN Reason: Mild Pain Stop: 08/13/20 08:57 Acetaminophen/Codeine Phosphate (Acetaminophen W/Codeine #3 1 Tab) 1 tab PO Q6H PRN PRN Reason: Pain Stop: 08/14/20 23:01 Last Admin: 07/18/20 22:13 Dose: 1 tab Documented by: Folic Acid (Folic Acid 1 Mg Tab) [facility] [place] Stop: 08/14/20 08:59 Last Admin: 07/18/20 08:26 Dose: 1 mg Documented by: Promethazine HCl 12.5 mg/ (Sodium Chloride) 50.5 mls @ 202 mls/hr IV Q6H PRN PRN Reason: Nausea And Vomiting Stop: 08/13/20 08:57 Lorazepam (Ativan) 1 mg in 2 mls @ 2 mls/min IV UD PRN; Protocol PRN Reason: EtOH Withdrawl AWSS Score 6,7 Stop: 08/13/20 08:57 Lorazepam (Ativan) 2 mg in 4 mls @ 4 mls/min IV UD PRN; Protocol PRN Reason: EtOH Withdrawl AWSS Score 8,9 Stop: 08/13/20 08:57 Lorazepam (Ativan) 3 mg in 6 mls @ 4 mls/min IV ONCE PRN; Protocol PRN Reason: EtOH Withdrawl AWSS Score >=10 Stop: 08/13/20 08:57 Ertapenem 1,000 mg/ Sodium (Chloride) 60 mls @ 100 mls/hr IV Q24H [facility] Stop: 07/27/20 10:59 Last Infusion: 07/18/20 12:44 Dose: Infused Documented by: Lidocaine (Lidocaine 5% 1 Patch) 1 patch TD [facility] Stop: 08/13/20 08:57 Last Admin: 07/18/20 08:26 Dose: 1 patch Documented by: Miscellaneous (Remove Lidoderm Patch) 1 ea N/A DAILY@2100 [facility] Stop: 08/13/20 20:59 Last Admin: 07/18/20 22:14 Dose: 1 ea Documented by: Multivitamins (Multivitamin Tab) 1 tab PO [facility] Stop: 08/14/20 08:59 Last Admin: 07/18/20 08:26 Dose: 1 tab Documented by: Thiamine HCl (Thiamine Hcl 100 Mg Tab) 100 [facility] [place] Stop: 08/14/20 08:59 Last Admin: 07/18/20 08:27 Dose: 100 mg Documented by:
[2020-07-19] MEDS: THIAMINE HCL 100 MG TAB PO SCH (09:07)
[2020-07-19] MEDS: FOLIC ACID 1 MG TAB PO SCH (09:07)
[2020-07-19] MEDS: MULTIVITAMIN TAB PO SCH (09:07)
[2020-07-19] MEDS: LIDOCAINE 5% 1 PATCH TD SCH (09:07)
[2020-07-19] MEDS: ERTAPENEM SODIUM 1,000 MG in SODIUM CHLORIDE 0.9% 50 ML IV SCH (11:54)
[2020-07-19] MEDS: ACETAMINOPHEN W/CODEINE #3 1 TAB PO PRN (20:35)
[2020-07-19] MEDS ORDERED: WARFARIN SOD 2 MG TAB PO ONE (22:47)
[2020-07-20 06:20] LABS: Hematocrit (blood only) 25.5 % (37-47); Hemoglobin 8.3 g/dL (12.0-16.0); Mean Corpuscular Hemoglobin 32.2 pg (25-34); Mean Corpuscular Hgb Conc 32.5 g/dL (32-36); Mean Corpuscular Volume 98.8 fL (80-100); RDW Coefficient of Variation 20.6 % (11.5-14.5); RDW Standard Deviation 73.4 fL (36.4-46.3); Red Blood Count 2.58 M/uL (4.2-5.4); White Blood Count 3.07 K/uL (4.8-10.8)
[2020-07-20 06:30] LABS: Mean Platelet Volume 11.4 fL (7.4-10.4); Platelet Count 66 K/uL (130-400)
[2020-07-20 06:32] LABS: INR 1.4 (0.9-1.1); Prothrombin Time 14.1 Seconds (9.0-12.0)
[2020-07-20 06:55] LABS: Albumin Level 2.2 gm/dl (3.4-5.0); BUN Creatinine Ratio 18.7 (10-20); Calcium 8.5 mg/dl (8.5-10.1); Creatinine Clr Calc Pharmacy 91.6 ml/min; Est GFR (African American) 103.3; Est GFR (Non-African American) 89.2; Potassium 4.2 mmol/L (3.5-5.1)
[2020-07-20 06:58] LABS: Albumin Globulin Ratio 0.6 (0.9-2); Globulin 3.6 gm/dl (2.5-4.0); Total Protein 5.9 gm/dl (6.4-8.2)
[2020-07-20 07:08] LABS: Anisocytosis Present; Basophils # (auto) 0.02 K/uL (0-0.2); Basophils % (auto) 0.7 %; Eosinophils # (auto) 0.08 K/uL (0-0.5); Eosinophils % (auto) 2.6 %; Immature Granulocytes # (auto) 0.01 K/uL (0.00-0.02); Immature Granulocytes % (auto) 0.3 %; Lymphocytes # (auto) 0.61 K/uL (1.2-3.4); Lymphocytes % (auto) 19.9 %; Monocytes # (auto) 0.83 K/uL (0.11-0.59); Neutrophils # (auto) 1.52 K/uL (1.4-6.5); Neutrophils % (auto) 49.5 %; Platelet Estimate Decreased (Normal); Poikilocytosis Present
[2020-07-20 07:41] VITALS: O2SAT 97
[2020-07-20] MEDS: FOLIC ACID 1 MG TAB PO SCH (08:08)
[2020-07-20] MEDS: THIAMINE HCL 100 MG TAB PO SCH (08:09)
[2020-07-20] MEDS: MULTIVITAMIN TAB PO SCH (08:09)
[2020-07-20] MEDS: LIDOCAINE 5% 1 PATCH TD SCH (08:10)
[2020-07-20] MEDS: ERTAPENEM SODIUM 1,000 MG in SODIUM CHLORIDE 0.9% 50 ML IV SCH (10:44)
[2020-07-20 11:49] VITALS: TEMP 98.4
--- NOTE | 2020-07-20 12:51 | Hospitalist Progress Note ---
Date of Service July 20, 2020 Assessment & Plan (1) Fall: (2) Left rib fracture: (3) Anemia: Acute blood loss anemia Secondary to traumatic bleeding hematoma left chest wall, left flank, in the setting of warfarin therapy 7th Left Rib Fracture Coumadin coagulopathy, history of portal vein thrombosis -- CT chest: 1. Large hematoma within the left posterolateral chest wall that measures approximately 25 x 16.3 x 4.5 cm. This contains a 4 cm focus of active extravasation. 2. Acute mildly displaced fracture of the lateral left seventh rib. No pneumothorax. Trace left pleural effusion. Old left fifth and sixth rib fractures. 3. Multifocal groundglass opacities within the lungs. These are likely infectious or inflammatory. However, a follow-up chest CT in 3 months to ensure resolution is recommended. 4. Cirrhosis. Manifestations of portal hypertension. -- repeat CT Chest: 1. Evaluation somewhat limited in that the examination was performed without intravenous contrast 2. Difficult to measure, persistent left chest wall hematoma estimated to measure 18 x 13.7 x 4.6 cm. 3. Acute fracture the left lateral seventh rib 4. Cirrhosis 5. Cholelithiasis 6. Multifocal groundglass pulmonary opacities likely infectious/inflammatory. As previously stated 3 month follow-up CT scan is recommended 5. Cholelithiasis. -- Hg dropped to 6.6 2 units pRBC ordered HemoGlobin increased to 8 - current Hgb 8.3 (stable), cont. to monitor CBC -- Plt 42k given 1 unit platelets Plt 34 Acute on chronic thrombocytopenia likely secondary to consumption from large hematoma Repeat platelet 34, transfused another 1 unit - no change in plt count Currently improved - 66 (07/20/20) -- INR 3.2- given Vitk 5mg po --> INR 1.5 -- monitor INR - current INR 1.4 -- Gen Surg consulted, no surgical intervention at this time Traumatic rib fractures -- Incentive spirometry pain control COVID-19 pneumonia -- no hypoxia -- continue to monitor Continue isolation hypertension, blood pressure on the lower side -- resume Atenolol alcoholic cirrhosis -- T sujatha 4 Ct chest showing cirrhosis, portal hypertension -- monitor LFTs GI consulted - recommend Abd US after acute infection resolved history of portal vein thrombosis -- last episode 15 yrs ago as per patient -- on coumadin since -- INR 3.4 given Vit K and FFP in light of hematoma -- INR 1.5 --Resume Coumadin in 2 days if patient remains stable, CBC stable --will need liver US/doppler as outpt to assess portal vein --started warfarin (07/18/2020), cont. to monitor H&H --Hgb stable, currently 8.3 (07/20/20) Alcoholism -- last drink 07/04 as per patient -- no signs of alcohol withdrawal -- pt counselled, she is interested in full abstinence from alcohol UTI - ESBL E.coli on U cultx - pt denies having symptoms, therefore questionable UTI - treated w/ ertapenem while inpt, will Rx macrobid (given sensitivities) for 3 more days as outpt - follow up as outpt hemolytic anemia as per records Hyperglycemia rule out DM -- a1c 5.2 PT OT eval DVT prophylaxis. SCDs while Coumadin on hold if INR less than 2 Full code Disposition needs PT/OT - PT currently recommend to return home Admission and Anticipated Discharge Date Admission Date: July 14, 2020 Subjective Pt seen in follow-up s/p fall, left rib fracture, left side hematoma, COVID-19 pneumonia Pt is sitting up in bed, in NAD, breathing comfortably on RA Continues to have back pain d/t hematoma but well controlled with medication Has occasional cough, with clear sputum Denies shortness of breath, chest pain, fever, chills Review of Systems Review of Systems: All systems reviewed & are unremarkable except as noted in HPI & below As per HPI, all 10 systems reviewed, all other ROS negative Constitutional: no fever and no chills Respiratory: + cough (improved); no dyspnea Cardiovascular: no chest pain and no palpitations Gastrointestinal: no abdominal pain, no nausea and no vomiting Genitourinary: no dysuria Physical Exam Physical Exam: General- oriented x 3, not in distress, speaks in sentences with no effort or accessory muscle use Eyes- anicteric Neck- no JVD Lungs- clear breath sounds bilaterally, no rales/wheezes, breathing comfortably on RA Back - large areas of hematoma/ecchymosis at the left posterolateral rib, left side of the back, with moderate edema, and tenderness Heart- normal rate, regular rhythm; no murmurs Abdomen- normal bowel sounds, nondistended, soft, nontender Extremities- no pretibial edema, no calf tenderness Neuro- alert, oriented x 3; no gross focal neurologic deficits Skin- warm & dry Results & Data Results & Data ([facility]) Vital Signs (Past 12 Hours) Vital Signs Temp Pulse Pulse Resp BP BP Pulse Ox 07/20/20 11:48 36.9 C 85 20 134/69 97 07/20/20 08:00 78 07/20/20 07:40 36.6 C 85 18 120/73 97 07/20/20 03:44 36.6 C 82 20 105/64 98 Laboratory Results 07/20/20 07/20/20 07/20/20 Range/Units 06:09 06:09 06:09 WBC 3.07 L (4.8-10.8) K/uL RBC 2.58 L (4.2-5.4) M/uL Hgb 8.3 L (12.0-16.0) g/dL Hct 25.5 L (37-47) % MCV 98.8 (80-100) fL MCH 32.2 (25-34) pg MCHC 32.5 (32-36) g/dL RDW Std Deviation 73.4 H (36.4-46.3) fL RDW Coeff of Martinez 20.6 H (11.5-14.5) % Plt Count 66 L (130-400) K/uL MPV 11.4 H (7.4-10.4) fL Immature Gran % (Auto) 0.3 % Neut % (Auto) 49.5 % Lymph % (Auto) 19.9 % [place] % (Auto) 27.0 % Eos % (Auto) 2.6 % Baso % (Auto) 0.7 % Neut # (Auto) 1.52 (1.4-6.5) K/uL Lymph # (Auto) 0.61 L (1.2-3.4) K/uL [place] # (Auto) 0.83 H (0.11-0.59) K/uL Eos # (Auto) 0.08 (0-0.5) K/uL Baso # (Auto) 0.02 (0-0.2) K/uL Immature Gran # (Auto) 0.01 (0.00-0.02) K/uL Platelet Estimate Decreased L (Normal) Poikilocytosis Present Anisocytosis Present PT 14.1 H (9.0-12.0) Seconds INR 1.4 H (0.9-1.1) Sodium 140 (136-145) mmol/L Potassium 4.2 (3.5-5.1) mmol/L Chloride 109 H (98-107) mmol/L Carbon Dioxide 26 (21-32) mmol/L Anion Gap 5.0 (3-11) BUN 12 (7-18) mg/dl Creatinine 0.64 (0.6-1.2) mg/dl Est Cr Clr Drug Dosing 91.6 ml/min Est GFR ( Amer) 103.3 Est GFR (Non-Af Amer) 89.2 BUN/Creatinine Ratio 18.7 (10-20) Glucose 88 (70-99) mg/dl Calcium 8.5 (8.5-10.1) mg/dl Total Bilirubin 5.0 H (0.2-1) mg/dl AST 61 H (15-37) U/L ALT 31 (12-78) U/L Alkaline Phosphatase 129 H (45-117) U/L Total Protein 5.9 L (6.4-8.2) gm/dl Albumin 2.2 L (3.4-5.0) gm/dl Globulin 3.6 (2.5-4.0) gm/dl Albumin/Globulin Ratio 0.6 L (0.9-2) Medications Administered Current Inpatient Medications Acetaminophen (Acetaminophen 325 Mg Tab) 325 mg PO Q6H PRN PRN Reason: Mild Pain Stop: 08/13/20 08:57 Acetaminophen/Codeine Phosphate (Acetaminophen W/Codeine #3 1 Tab) 1 tab PO Q6H PRN PRN Reason: Pain Stop: 08/14/20 23:01 Last Admin: 07/19/20 20:35 Dose: 1 tab Documented by: Folic Acid (Folic Acid 1 Mg Tab) [facility] [place] Stop: 08/14/20 08:59 Last Admin: 07/20/20 08:08 Dose: 1 mg Documented by: Promethazine HCl 12.5 mg/ (Sodium Chloride) 50.5 mls @ 202 mls/hr IV Q6H PRN PRN Reason: Nausea And Vomiting Stop: 08/13/20 08:57 Lorazepam (Ativan) 1 mg in 2 mls @ 2 mls/min IV UD PRN; Protocol PRN Reason: EtOH Withdrawl AWSS Score 6,7 Stop: 08/13/20 08:57 Lorazepam (Ativan) 2 mg in 4 mls @ 4 mls/min IV UD PRN; Protocol PRN Reason: EtOH Withdrawl AWSS Score 8,9 Stop: 08/13/20 08:57 Lorazepam (Ativan) 3 mg in 6 mls @ 4 mls/min IV ONCE PRN; Protocol PRN Reason: EtOH Withdrawl AWSS Score >=10 Stop: 08/13/20 08:57 Ertapenem 1,000 mg/ Sodium (Chloride) 60 mls @ 100 mls/hr IV Q24H [facility] Stop: 07/27/20 10:59 Last Infusion: 07/20/20 11:20 Dose: Infused Documented by: Lidocaine (Lidocaine 5% 1 Patch) 1 patch TD [facility] Stop: 08/13/20 08:57 Last Admin: 07/20/20 08:10 Dose: Not Given Documented by: Miscellaneous (Remove Lidoderm Patch) 1 ea N/A DAILY@2100 [facility] Stop: 08/13/20 20:59 Last Admin: 07/19/20 23:18 Dose: 1 ea Documented by: Multivitamins (Multivitamin Tab) 1 tab PO [facility] Stop: 08/14/20 08:59 Last Admin: 07/20/20 08:09 Dose: 1 tab Documented by: Thiamine HCl (Thiamine Hcl 100 Mg Tab) [facility] [place] Stop: 08/14/20 08:59 Last Admin: 07/20/20 08:09 Dose: 100 mg Documented by:
[2020-07-20 13:39] VITALS: BP 105/64; PULSE 79
[2020-07-20] MEDS ORDERED: MACROBID 100MG HOME PACK 1 EA VIAL PO ONE (13:45)
--- NOTE | 2020-07-20 14:36 | Discharge Summary ---
Date of Service July 20, 2020 Admission HPI Per Admitting Provider History obtained from patient, family, and records. Medical history significant for hypertension, alcoholic cirrhosis, hemolytic anemia as per records, portal vein thrombosis on Coumadin. A week ago, patient had transient cough with epigastric pain, nausea, vomiting symptoms. No chest pain, no S OB. Poor appetite. Transient headache symptoms. Outpatient COVID-19 test positive. Cough symptoms resolved. Poor appetite with nausea vomiting symptoms. Could not keep anything down. 3 days ago patient had an episode of lightheadedness which caused her to fall on her back. Denies head trauma. Achy back/chest wall pain with bruising. Patient evaluated at [facility] but was sent home without imaging as per patient. Yesterday, patient felt her legs give out without headache, syncope. Worsening back pain. Patient brought to the ER for evaluation. 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 Exam Per Admitting Provider General- oriented x 3, not in distress, speaks in sentences with no effort or accessory muscle use Head- atraumatic Eyes- PERRL, EOMI, anicteric ENT- oropharynx clear Neck- supple, no JVD, no adenopathy, no thyromegaly; carotids +2/2, no bruits appreciated Lungs- clear to auscultation bilaterally, no rales/wheezes (+) areas of hematoma on the left side of the back Heart- normal rate, regular rhythm; no murmurs Abdomen- normal bowel sounds, nondistended, soft, nontender, no masses or hepatosplenomegaly Extremities- no pretibial edema, no calf tenderness; peripheral pulses intact Neuro- alert, oriented x 3; CN 2-12 grossly intact; motor 5/5 bilaterally;sensation 100% on all extremities; no other gross focal neurologic deficits Skin- warm & dry Principal Diagnosis Left 7th rib fracture Left chest wall/ back hematoma Anemia secondary to hematoma and anticoagulation therapy (warfarin) Thrombocytopenia secondary to liver cirrhosis Discharge Exam General- oriented x 3, not in distress, speaks in sentences with no effort or accessory muscle use Eyes- anicteric Neck- no JVD Lungs- clear breath sounds bilaterally, no rales/wheezes, breathing comfortably on RA Back - large areas of hematoma/ecchymosis at the left posterolateral rib, left side of the back, with moderate edema, and tenderness Heart- normal rate, regular rhythm; no murmurs Abdomen- normal bowel sounds, nondistended, soft, nontender Extremities- no pretibial edema, no calf tenderness Neuro- alert, oriented x 3; no gross focal neurologic deficits Skin- warm & dry Discharge Data Allergies Allergy/AdvReac Type Severity Reaction Status Date / Time Penicillins Allergy Severe UNKNOWN Verified 07/14/20 01:32 aspirin Allergy Intermediate HIVES Verified 07/14/20 01:32 Consultations 07/14/20 03:56 ED Decision to Admit Stat 07/14/20 06:14 Consult General Surgery Routine 07/14/20 08:58 Consult Case Management - Discharge Planning Routine 07/15/20 09:08 Consult Gastroenterology Routine Ordered Studies 07/14/20 00:56 CT abd pelvis IV con only Urgent CT chest diagnostic w con Urgent IMPRESSION: 1. Large hematoma within the left posterolateral chest wall that measures approximately 25 x 16.3 x 4.5 cm. This contains a 4 cm focus of active extravasation. 2. Acute mildly displaced fracture of the lateral left seventh rib. No pneumothorax. Trace left pleural effusion. Old left fifth and sixth rib fractures. 3. Multifocal groundglass opacities within the lungs. These are likely infectious or inflammatory. However, a follow-up chest CT in 3 months to ensure resolution is recommended. 4. Cirrhosis. Manifestations of portal hypertension. 5. Cholelithiasis 07/14/20 05:40 CT head/brain wo con Urgent 07/14/20 17:52 CT chest diagnostic wo con Stat IMPRESSION: 1. Evaluation somewhat limited in that the examination was performed without intravenous contrast 2. Difficult to measure, persistent left chest wall hematoma estimated to measure 18 x 13.7 x 4.6 cm. 3. Acute fracture the left lateral seventh rib 4. Cirrhosis 5. Cholelithiasis 6. Multifocal groundglass pulmonary opacities likely infectious/inflammatory. As previously stated 3 month follow-up CT scan is recommended Hospital Course (1) Fall: (2) Left rib fracture: (3) Anemia: Acute blood loss anemia Secondary to traumatic bleeding hematoma left chest wall, left flank, in the setting of warfarin therapy 7th Left Rib Fracture Coumadin coagulopathy, history of portal vein thrombosis -- CT chest: 1. Large hematoma within the left posterolateral chest wall that measures approximately 25 x 16.3 x 4.5 cm. This contains a 4 cm focus of active extravasation. 2. Acute mildly displaced fracture of the lateral left seventh rib. No pneumothorax. Trace left pleural effusion. Old left fifth and sixth rib fractures. 3. Multifocal groundglass opacities within the lungs. These are likely infectious or inflammatory. However, a follow-up chest CT in 3 months to ensure resolution is recommended. 4. Cirrhosis. Manifestations of portal hypertension. -- repeat CT Chest: 1. Evaluation somewhat limited in that the examination was performed without intravenous contrast 2. Difficult to measure, persistent left chest wall hematoma estimated to measure 18 x 13.7 x 4.6 cm. 3. Acute fracture the left lateral seventh rib 4. Cirrhosis 5. Cholelithiasis 6. Multifocal groundglass pulmonary opacities likely infectious/inflammatory. As previously stated 3 month follow-up CT scan is recommended 5. Cholelithiasis. -- Hg dropped to 6.6 2 units pRBC ordered HemoGlobin increased to 8 - current Hgb 8.3 (stable), cont. to monitor CBC -- Plt 42k given 1 unit platelets Plt 34 Acute on chronic thrombocytopenia likely secondary to consumption from large hematoma Repeat platelet 34, transfused another 1 unit - no change in plt count Currently improved - 66 (07/20/20) -- INR 3.2- given Vitk 5mg po --> INR 1.5 -- monitor INR - current INR 1.4 -- Gen Surg consulted, no surgical intervention at this time Traumatic rib fractures -- Incentive spirometry pain control COVID-19 pneumonia -- no hypoxia -- continue to monitor Continue isolation hypertension, blood pressure on the lower side -- resume Atenolol alcoholic cirrhosis -- T sujatha 4 Ct chest showing cirrhosis, portal hypertension -- monitor LFTs GI consulted - recommend Abd US after acute infection resolved history of portal vein thrombosis -- last episode 15 yrs ago as per patient -- on coumadin since -- INR 3.4 given Vit K and FFP in light of hematoma -- INR 1.5 --Resume Coumadin in 2 days if patient remains stable, CBC stable --will need liver US/doppler as outpt to assess portal vein --started warfarin (07/18/2020), cont. to monitor H&H --Hgb stable, currently 8.3 (07/20/20) Alcoholism -- last drink 07/04 as per patient -- no signs of alcohol withdrawal -- pt counselled, she is interested in full abstinence from alcohol UTI - ESBL E.coli on U cultx - pt denies having symptoms, therefore questionable UTI - treated w/ ertapenem while inpt, will Rx macrobid (given sensitivities) for 3 more days as outpt - follow up as outpt hemolytic anemia as per records Hyperglycemia rule out DM -- a1c 5.2 PT OT eval DVT prophylaxis. SCDs while Coumadin on hold if INR less than 2 Full code Disposition needs PT/OT - PT currently recommend to return home Total Time Total Time Spent Total Time Spent (In Minutes): 38 Total Time Includes: Examination of the Patient, Discharge Planning, Medication Reconciliation and Communication With Other Providers Discharge Plan Discharge Items Patient Disposition: Home - Self-Care Reason For Visit: ANEMIA,HYPOTENSION,COVID 19 Discharge Diagnosis: Left 7th rib fracture Left chest wall/ back hematoma Anemia secondary to hematoma and anticoagulation therapy (warfarin) Thrombocytopenia secondary to liver cirrhosis Activity: As commented below Lifting: None and Gradually increase as tolerated Non-emergency contact: Primary Care Provider Call non-emergency contact if: you have any medication questions and your symptoms worsen Follow-up/Referrals: Keegan Felipe MD [Primary Care Provider] - (Date & Time 07/21/2020 5:40 PM Provider Keegan Felipe MD Department Internal Medicine [facility] PLEASE NOTE THAT THIS IS A TELEVIDEO APPOINTMENT. PLEASE FOLLOW THE INSTRUCTIONS IN THE EMAIL YOU WILL RECEIVE. IF YOU HAVE ANY QUESTIONS, PLEASE CALL ) Diet: Heart Healthy Addtl Attending Provider Instructions: Follow up with your family doctor in 1 week. The appointment will be scheduled for you. At that time you will need bloodwork (H&H, and INR level). Take antibiotic, nitrofurantoin, for 3 more days. Keep using lidocaine patch for your back, this can be also obtained over the counter under the name of Salonpas. Take warfarin 2 mg daily until instructed otherwise by your doctor. Recommend to completely abstain from alcohol. Recommend not to lift anything or exert yourself in any way at this point. Discuss with your family doctor when it is appropriate for you to return to w ork. 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 You should restrict activities outside your home, except for getting medical care. Do not go to work, school, or public areas. Avoid using public transportation, ride-sharing, or taxis. Separate yourself from other people and animals in your home People: As much as possible, you should stay in a specific room and away from other people in your home. Also, you should use a separate bathroom, if available. Animals: You should restrict contact with pets and other animals while you are sick with COVID-19, just like you would around other people. Although there have not been reports of pets or other animals becoming sick with COVID-19, it is still recommended that people sick with COVID-19 limit contact with animals un til more information is known about the virus. When possible, have another member of your household care for your animals while you are sick. If you are sick with COVID-19, avoid contact with your pet, including petting, snuggling, being kissed or licked, and sharing food. If you must care for your pet or be around animals while you are sick, wash your hands before and after you interact with pets and wear a face mask. Call ahead before visiting your doctor If you have a medical appointment, call the healthcare provider and tell them that you have or may have COVID-19. This will help the healthcare providers office take steps to keep other people from getting infected or exposed. Wear a face mask You should wear a face mask when you are around other people (e.g., sharing a room or vehicle) or pets and before you enter a healthcare providers office. If you are not able to wear a face mask (for example, because it causes trouble breathing), then people who live with you should not stay in the same room with you, or they should wear a face mask if they enter your room. Cover your coughs and sneezes Cover your mouth and nose with a tissue when you cough or sneeze. Throw used tissues in a lined trash can. Immediately wash your hands with soap and water for at least 20 seconds or, if soap and water are not available, clean your hands with an alcohol-based hand strand and binder controller that contains at least 60% alcohol. Clean your hands often Wash your hands often with soap and water for at least 20 seconds, especially after blowing your nose, coughing, or sneezing; going to the bathroom; and before eating or preparing food. If soap and water are not readily available, use an alcohol-based hand strand and binder controller with at least 60% alcohol, covering all surfaces of your hands and rubbing them together until they feel dry. Soap and water are the best option if hands are visibly dirty. Avoid touching your eyes, nose, and mouth with unwashed hands. Avoid sharing personal household items You should not share dishes, drinking glasses, cups, eating utensils, towels, or bedding with other people or pets in your home. After using these items, they should be washed thoroughly with soap and water. Clean all high-touch surfaces everyday High touch surfaces include counters, tabletops, doorknobs, bathroom fixtures, toilets, phones, keyboards, tablets, and bedside tables. Also, clean any surfaces that may have blood, stool, or body fluids on them. Use a household cleaning spray or wipe, according to the label instructions. Labels contain instructions for safe and effective use of the cleaning product including precautions you should take when applying the product, such as wearing gloves and making sure you have good ventilation during use of the product. Monitor your symptoms Seek prompt medical attention if your illness is worsening (e.g., difficulty breathing).Beforeseeking care, call your healthcare provider and tell them that you have, or are being evaluated for, COVID-19. Put on a face mask before you enter the facility. These steps will help the healthcare providers office to keep other people in the office or waiting room from getting infected or exposed. Ask your healthcare provider to call the local or state health department. Persons who are placed under active monitoring or facilitated self- monitoring should follow instructions provided by their local health department or occupational health professionals, as appropriate. When working with your local health department check their available hours. If you have a medical emergency and need to call 911, notify the dispatch personnel that you have, or are being evaluated for COVID-19. If possible, put on a face mask before emergency medical services arrive. Discontinuing home isolation Patients with confirmed COVID-19 should remain under home isolation precautions until the risk of secondary transmission to others is thought to be low. The decision to discontinue home isolation precautions should be made on a [id number] basis, in consultation with healthcare providers and state and local health departments. Coronavirus disease 2019 (COVID-19) is a virus that causes a respiratory illness. It is caused by a coronavirus called 2019 novel coronavirus (2019- nCoV). There are many types of coronavirus. Coronaviruses are a very common cause of bronchitis. They may sometimes cause lung infection(pneumonia). Symptoms can range from mild to severe respiratory illness. These viruses are also foundin some animals. COVID-19 was first found in people in [facility], in late 2018. In 2019, several cases of COVID-19 have been confirmed in the [place] Public health officials are working to find the source. How the virus spreads is not yet fully known. It may be spread through droplets of fluid that a person coughs or sneezes into the air. It may be spread if you touch a surface with virus on it, such as a handle or object, and then touch your mouth. What are the symptoms of COVID-19? Some people have no symptoms or mild symptoms. Symptoms may appear 2 to 14 days after contact with the virus. Symptoms can include: Fever Coughing Trouble breathing What are possible complications from COVID-19? In many cases, this virus can cause infection (pneumonia) in both lungs. In some cases, this can cause . How is COVID-19 diagnosed? Your healthcare provider will ask about your symptoms. He or she will also ask about your recent travel and contact with sick people. Testing for the virus is only done through the CDC. If yourhealthcare provider thinks you may have COVID- 19, he or she will work with your local health department and the CDC on testing. Follow all instructions from your healthcare provider. COVID-19 is diagnosed by: Nasal and throat swab. A cotton-tipped swab is wiped inside your nose or throat. This is done to check for viruses in your nasal mucus. Sputum culture. A small sample of mucus coughed from your lungs (sputum) is collected if you have a cough. It is checked for the virus. How is COVID-19 treated? There is currently no medicine to treat the virus. Treatment is done to help your body while it fights the virus. This is known as supportive care. Supportive care may include: Pain medicine. These include acetaminophen and ibuprofen. They are used to help ease pain and reduce fever. Bed rest. This helps your body fight the illness. For severe illness, you may need to stay in the hospital. Care during severe illness may include: IV (intravenous) fluids.These are given through a vein to help keep your body hydrated. Oxygen. Supplemental oxygen or ventilation with a breathing machine (ventilator) may be given. This is done to keep enough oxygen in your body. Are you at risk for COVID-19? If youve been to a place where people have been sick with this virus, you are at risk for infection. You are at risk if you: Recently traveled to an affected area Had contact with a sick person who recently traveled to this area Had contact with a person who was diagnosed with COVID-19 How can COVID-19 be prevented? There is no vaccine yet. The best prevention is to not have contact with the virus. The CDC advises that people should not travel to areas where there are COVID-19 outbreaks right now for any reason that is not urgent. To help prevent spreading the infection, wash your hands often, or use an alcohol-basedhand strand and binder controller. If you are in an area with COVID-19: Wash your hands often. Or use an alcohol-based hand strand and binder controller often. Only touch your eyes, nose, or mouth with clean hands. Dont have contact with people who are sick. Follow local instructions about being in public. For example, you may be told to not use public transport for a period of time. Stay away from markets that have live or animals. Wash your hands after touching any animals. Don't touch animals that may be sick. Dont share eating or drinking tools with sick people. Dont kiss someone who is sick. Clean surfaces often with disinfectant. If you were in an area with COVID-19 in the last 14 days: Call your healthcare provider. He or she can talk with local health staff to see what action may be needed. Follow all instructions from your provider. Take your temperature every morning and evening for at least 14 days. This is to check for fever. Keep a record of the readings. Keep watch for symptoms of the virus. Tell your provider right away if you have symptoms. If you were in an area with COVID-19 and have a fever or other symptoms: Dont panic. Keep in mind that other illnesses can cause similar symptoms. Stay away from work, school, and public places. Limit physical contact with family members. Don't kiss anyone or share eating or drinking utensils. Clean surfaces you touch with disinfectant. This is to help prevent the virus from spreading. Call your healthcare provider. Explain that you have been exposed to COVID-19 and have symptoms. Do this before going to any hospital. Wait for instructions. Keep in mind that healthcare staff may wear protective equipment such as masks, gowns, gloves, and eye protection. You may be put in a separate room. This is to prevent the possible virus from spreading. Tell the healthcare staff about recent travel. This includes local travel on public transport. Staff may need to find other people you have been in contact with. Follow all instructions the healthcare staff give you. If you have been diagnosed with COVID-19 Follow all instructions from your healthcare provider. Dont leave your home, except to get medical care. Call your healthcare providers office before going. They can prepare and give you instructions. This will help prevent the virus from spreading. Dont go to work, school, or public areas. Dont use public transport or taxis. Stay away from other people in your home. Have them wear face masks around you. Dont share household items or food. Wear a face mask if you can. This includes at home or in a medical facility. Cover your face with a tissue when you cough or sneeze. Throw the tissue away. Wash your hands. Wash your hands often. Caregivers should: Follow all instructions from healthcare staff. Wear a face mask and protective clothing as advised. Wash hands often. Keep track of the sick persons symptoms. Clean surfaces, fabrics, and laundry thoroughly. Keep other people away from the sick person. When to call your healthcare provider Call your healthcare provider: If youve recently traveled and have symptoms If you have been diagnosed with COVID-19 and your symptoms are worse To learn more To find out more about COVID-19, visit the CDC website at www.cdc.gov/coronavirus/2019-ncov/index.html. 3637-[address] [employer] [place] [address]. All rights reserved. This information is not intended as a substitute for professional medical care. Always follow your healthcare professional's instructions. This information has been adapted from [employer] Pending Studies at Discharge: No Stand-Alone Forms: My [facility], Smoking Cessation Medications and DC Order Prescriptions: New nitrofurantoin monohyd/m-cryst [Macrobid] 100 mg capsule 100 mg PO Q12H 3 Days Qty: 6 RF: 0 lidocaine 5 % Adhesive Patch,Medicated 1 patch transdermal QAM Qty: 15 RF: 0 thiamine HCl (vitamin B1) [Vitamin B-1] 100 mg Tablet 100 mg PO QAM 30 Days Qty: 30 RF: 0 folic acid 1 mg Tablet 1 mg PO QAM Qty: 30 RF: 0 Continued atenolol 25 mg tablet 25 mg PO QAM RF: 0 Centrum Multigummies Women 1 tab PO QAM RF: 0 warfarin 2 mg Tablet 2 mg PO [id number] RF: 0 cneidncpg-PI-jadpqiqakwutq 25-10-650 mg/30 mL Liquid 30 ml PO Q4 PRN (Reason: Cold Symptoms) RF: 0 Discontinued warfarin [Coumadin] 3 mg Tablet 3 mg PO WK RF: 0 Discharge Orders: Discharge Order (Routine); Ordered 07/20/20 Ordered By: Malachi Valencia Admission Data Admit Date/Time: 07/14/20 06:57 Attending Provider: Malachi Valencia Admit Provider: Emeka Bashir Primary Care Provider: Keegan Felipe Other Providers: Emeka Bashir ; Janusz Gray ; Margie Oliveros ; Yumiko Bazzi ; Javon Ortega ; Iglesia Baig ; Soumya Martinez ; Orquidea Ortiz ; Geovany Corey Jr ; Chery Ruth ; Min Man ; Gregoria Siu ; Gregoria Morgan ; Laz Garcia Other Interventions: Discharge Summary Assessment (RN) Last Done: 07/20/20 13:27
== END 2020-07-20 15:49 | disposition home or self-care (01) | DRG 813 ==
LOC: ED 00:29 → 2S 06:57 → SUATTDRO 06:57 → 2S 07:54

== ENCOUNTER 2024-03-16 06:59 | Inpatient (IN) ==
--- OUTSIDE RECORDS SUMMARY | 2024-03-16 07:09 | External Medical Summary | Summary of Care ---
Author Name Unknown Organization [facility] Address [address] [place] [address] Phone [phone] Care Team Providers Care Software Quality Automation Engineer Name Role Phone Unavailable Primary Care Provider Unavailabl e Reason for Visit * Reason Onset Date Comments Advice 02/27/2024 Encounter Details Date Type Department Care Team (Late st Contact Info) Description 02/27/2024 Telephone Ophthalmology, [facility] [address] [facility] [place] [address] Services, Scheduling [address] [place] [address] Advice Allergies Active Allergy Reactions Criticality Noted Date Comments Salicylates Low 09/06/2006 Asprin - hives Bee Stings Hives Low 05/11/2010 Oxycodone Other (Please comment) Medium 09/07/2023 Hallucinations Penicillins Anaphylaxis High 09/06/2006 documented as of this encounter (statuses as of 02/27/2024) Medications Medication Sig Dispensed Refills Start Date End Date Status DAILY MULTIVITAMIN PO TABS 1 tab daily Active Warfarin Sodium 1 MG Oral Tablet (Coumadin)Indicati ons:Portal vein thrombosis,Anticoa gulation 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,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 Portal vein thrombosis 12/17/2008 Benign neoplasm of colon 01/24/2008 Overview: villous polyp--repeat 1 year Hepatitis 12/27/2007 Acquired hemolytic anemia 12/27/2007 HTN, goal below 140/90 12/25/2007 documented as of this encounter (statuses as of 02/27/2024) Resolved Problems Problem Noted Date Diagnosed Date Resolved Date Hepatic cirrhosis 04/09/2009 10/28/2022 General medical exam 12/18/2008 009 Urinary tract infection 10/14/2008 100 07/2008 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 1 Overview: ICD-10 update of inactive term documented as of this encounter (statuses as of 02/27/2024) Immunizations Name Administration Dates Next Due Diptheria/Tetanus (Adult) 02/02/2006 PPD 04/29/2008 Pneumococcal Polysaccharide PPV23 (Pneumovax) 06/04/2009 Seasonal Influenza Virus Vac cine, Unspecified Formulation 06/18/2021,06/19/2020,04/30/2014,04/10,04/11/2012,04/15/2011,04/15/2010 ,04/10/2009 Seasonal Influenza, Quadriva lent Hd (Fluzone Hd) 05/07/2022,06/18/2021 Seasonal Influenza, Quadriva lent, No Preserve, IM 06/19/2020 Seasonal Influenza, Split, I IV3, With Preserve, Inj 04/30/2014,04/10/2013,04/11/2012,04/15,04/15/2010,04/10/2009 TDAP (age 10 and older)(Boostrix) 07/13/2021 TDAP, Age 7 and older, IM (Adacel) 10/15/2010(De severod: Patient Refused) documented as of this encounter Social History Tobacco Use Types Packs/Day Years Used Date Smoking Tobacco: Never Smokeless Tobacco: Never Alcohol Use Standard Drinks/Week Comments Yes 0 (1 standard drink = 0.6 oz pure alcohol) occasionally yrs ago; quit in 03/18 PHQ-2 Answer Date Recorded PHQ-2 Score 0 07/19/2018 Utilities Answer Date Recorded Do you have trouble paying y our heating, water, or electric bill? (Adult - for ages 18 years and over) Not on file 12/27/2023 Is your family able to pay t he heat, water, or electric bill? (Household - for ages 0-17 years) Not on file 12/27/2023 Does your family have access to good internet? (Household - for ages 0-17 years) Not on file 12/27/2023 Social Connections Answer Date Recorded How often do you feel lonely or isolated from those around you? (Adult - for ages 18 years and over) Not on file 12/27/2023 Sex and Gender Information Value Date Recorded Sex Assigned at Not on file Gender Identity Not on file Sexual Orientation Not on file Job Start Date Occupation Industry Not on file Not on file Not on file documented as of this encounter Miscellaneous Notes * Telephone Encounter - Sarahi Quinn MED ASSIST - 02/27/2024 11:20 AM EDT Called and spoke with ed at number below and advised of message from Dr Grewal * Telephone Encounter - Rosaura Ornelas OSA - 02/27/2024 9:40 AM EDT Good morning, Pt is having surgery 03/07/24. Debby from [facility] is wanting to know when and for how long, pt is stop taking Coumadin Debby can be reached at [phone] Please advise. Thank you, Rosaura documented in this encounter Plan of Treatment Upcoming Encounters Date Type Department Care Team (Late st Contact Info) Description 03/07/2024 9:29 AM EDT Hospital Encounter OR [facility], Operating Room, [facility] 3rd Floor [address] [facility] [place] [address] Ronny Grewal MD [address] [facility] [address] [place] [address] 03/07/2024 9:29 AM EDT - 03/07/2024 10:58 AM EDT Surgery OR [facility], Operating Room, [facility] 3rd Floor [address] [facility] [place] [address] Ronny Grewal MD [address] [facility] [address] [place] [address] RIGHT REPAIR RETINAL DETACHMENT WITH VITRECTOMY 03/08/2024 12:15 PM EDT Office Visit Ophthalmology, [facility] [address] [facility] [place] [address] Martell Estrada, [address] [facility] [place] [address] 03/14/2024 7:00 AM EDT Laboratory Lab Mobile Phlebotomy [address] [place] [address] [facility], [facility] Mobile Home Draw [address] [place] [address] 03/15/2024 7:00 AM EDT Anticoagulation Pharmacy, [address] [place] [address] [place] [address] Scheduled Procedures Name Priority Associated Diagnoses Date/Ti me REPAIR RETINAL DETACHMENT WITH VITRECTOMY 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 03/07/2024 9:29 AM EDT Health Maintenance Due Date Last Done Comments DXA Scan 1945 Albumin/Creatinine Ratio 12/04/1965 Zoster Vaccines (1 of 2) 12/04/1997 Hepatitis B Vaccine (1 of 3 - Risk 3-dose series) 2007 Pneumococcal Vaccine: 65+ Years (2 of 2 - PCV) 06/04/2010 06/04/2009 Colonoscopy 12/01/2014 12/02/2011, 11/09, 01/14/2009, Additional history exists Depression Screening 07/19/2019 07/19/2018 GFR 10/13/2022 10/13/2021, 04/11, 10/31/2013, Additional history exists COVID-19 Vaccine ( - season) 2023 Influenza Vaccine (FLU shot) (#1) 2024 05/07/2022, 06/18/2021, 06/18/2021, Additional history exists DTaP,Tdap,and Td Vaccines (2 - Td or Tdap) 07/13/2031 07/13/2021, 02/02/2006 HPV (Gardasil) Vaccine Aged Out No lo nger eligible based on patient's age to complete this topic MENINGOCOCCAL (MENACTRA/MENVEO) Aged Out No longer eligible based on patient's age to complete this topic documented as of this encounter Medical Devices Implanted Type Area Linux Server Administrator Device Identifier Shelf Expiration Date Model / Serial / Lot Clareon Iol Aspheric Uv Absorbing Iol Implanted:Qty: 1 on 02/07/2024 by Martell Estrada DO at OR [facility] Left: Eye 04/18/2027 CCA0T0 / [id number] / N/A Description:clareon uv iol +20.0d reference # [id number] documented as of this encounter Advance Directives * Full Code (Latest Code Status on File) Date Activated Date Inactivated Comments 02/07/2024 1:38 PM 02/07/2024 8:45 PM Question Answer Comments Discussion of Advance Direct anita occurred with: Not Discussed due to patient's condition * Full Code Date Activated Date Inactivated Comments 10/20/2023 1:39 PM 10/20/2023 9:04 PM This order r eflects the patients wishes and were consensually agreed upon. Question Answer Comments Discussion of Advance Direct anita occurred with: Not Discussed due to patient's condition * Full Code Date Activated Date Inactivated Comments 09/07/2023 10:51 AM 09/07/2023 6:05 PM This order reflects the patients wishes and were consensually agreed upon. Question Answer Comments Discussion of Advance Direct anita occurred with: Not Discussed due to patient's condition
--- OUTSIDE RECORDS SUMMARY | 2024-03-16 07:09 | External Medical Summary ---
Author Name Unknown Address Unknown Organization K01:[facility] - [address] [place] [address] Laboratory Report Ordering Provider Test Date Status SANDRAJUANNARDA 03/14/2024 08:52:00 Final Warfarin Therapy
INR: 2 .0-3.0 conventional anticoagulation
INR: 2.5- 3.5 high intensity anticoagulation Observation Date Value Abnormality Reference (Units ) Status PT 03/14/2024 08:52:00 24.0 Above high normal 11 .6-15.2 (seconds) Final INR 03/14/2024 08:52:00 2.1 Above high normal 0. 8-1.2 Final Performing Location [facility] - [address] [place] [address]
--- OUTSIDE RECORDS SUMMARY | 2024-03-16 07:09 | External Medical Summary ---
Author Name Unknown Address Unknown Organization [id number]:[facility] [place] [address] [place] [address] Laboratory Report Ordering Provider Test Date Status SANDRAJUANNARDA 02/15/2024 07:58:00 Final Warfarin Therapy
INR: 2 .0-3.0 conventional anticoagulation
INR: 2.5- 3.5 high intensity anticoagulation Observation Date Value Abnormality Reference (Units ) Status PT 02/15/2024 07:58:00 27.7 Above high normal 11 .6-15.2 (seconds) Final INR 02/15/2024 07:58:00 2.5 Above high normal 0. 8-1.2 Final Performing Location [facility] [place] [address] [place] [address]
--- OUTSIDE RECORDS SUMMARY | 2024-03-16 07:09 | External Medical Summary | Summary of Care ---
Author Name Unknown Organization [facility] Address [address] [facility] [place] [address] Phone [phone] Care Team Providers Care Management Nurse Rn Name Role Phone Unavailable Primary Care Provider Unavailabl e Reason for Visit * Reason Comments Post Op Cataract Surgery 1 day OS Encounter Details Date Type Department Care Team (Late st Contact Info) Description 02/08/2024 7:45 AM EDT Office Visit OphthalmologyJadiel [address] [place] [address] Martell Estrada DO 21 [facility] [place] [address] After cataract not obscuring vision, left* Allergies Active Allergy Reactions Criticality Noted Date Comments Salicylates Low 09/06/2006 Asprin - hives Bee Stings Hives Low 05/11/2010 Oxycodone Other (Please comment) Medium 09/07/2023 Hallucinations Penicillins Anaphylaxis High 09/06/2006 documented as of this encounter (statuses as of 02/08/2024) Medications Medication Sig Dispensed Refills Start Date End Date Status DAILY MULTIVITAMIN PO TABS 1 tab daily Active Warfarin Sodium 1 MG Oral Tablet (Coumadin)Indicati ons:Portal vein thrombosis,Anticoa gulation 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,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 1 Overview: ICD-10 update of inactive term documented as of this encounter (statuses as of 02/08/2024) Immunizations Name Administration Dates Next Due Diptheria/Tetanus [...] Age 7 and older, IM (Adacel) 10/15/2010(De ferred: Patient Refused) documented as of this encounter [...] on file documented as of this encounter Progress Notes * Martell Estrada DO - 02/08/2024 7:45 AM EDT 02/08/2024 [facility] Ophthalmology Post-operative Clinic Note HPI: Ann Portillo is a 78 year old pt who presents to the eye clinic today for 1 day post-op CEPCIOL OS (Sean TCC White cataract IFIS CCA0T0 20.0 02/07/2024) Patched overnight. POHx: s/p PPV for recurrent RD w/PVR OS VAsc: 20/800 IOP: 12 mmhg LL: Normal Conjunctiva: Normal Cornea: CCI and paracentesis kurt negative, 1+ edema, 10-0 nylon AC: 2+ c/f Iris: residual dilation Lens: PCIOL centered A/P: 1 day post op CE PCIOL OS (Ensor TCC White cataract IFIS CCA0T0 20.0 02/07/2024) Doing well today Kurt negative wounds Normal IOP Expected post operative inflammation is seen Reviewed eye drops: Ocuflox QID Prednisolone QID Reviewed activity restrictions - no bending or lifting, no strenuous activity. Wear eye shield at bedtime. Call with flashes, floaters, dec vision eye pain. Advised of probation worker coverage for after hours/weekend emergencies. RTC 1 week or sooner prn. Martell Estrada DO 02/08/24 documented in this encounter Nursing Notes * Jaymie Rico TECH - 02/08/2024 8:56 AM EDT Ann Portillo presents for p/o check. Post operative day 1 procedure: ECCE w/IOL insertion Operative eye: LEFT EYE Patient denies complaints Dressing removed, small amount of drainage. Eye cleansed with normal saline solution. Instructions regarding wearing of eye shield reinforced. No drops used, eye was patched. Pred Forte and [id number] 4 times daily in surgical eye Did you wear eye shield to bed, slept on unaffected side and avoid bending over and heavy lifting? Yes Va will be found in the ophth exam documented in this encounter Plan of Treatment Upcoming Encounters Date Type Department Care Team (Late st Contact Info) Description 02/08/2024 5:30 PM EDT Anticoagulation Pharmacy, [address] [place] [address] [place] [address] 02/17/2024 10:00 AM EDT Office Visit Ophthalmology, [address] [place] [address] Ronny Grewal MD [address] [place] [address] 03/08/2024 12:15 PM EDT Office Visit Ophthalmology, [facility] [address] [place] [address] Martell Estrada, DO [address] [facility] [address] [place] [address] Health Maintenance Due Date Last Done Comments [...] - Td or Tdap) 07/13/2031 07/13/2021, 02/02/2006 *BASELINE EKG FOR HTN Completed 10/29/2009 Hepatitis C Screening Completed 10/26/2010 , 10/29/2009, 10/07/2008, Additional history exists HPV (Gardasil) Vaccine Aged Out No lo nger eligible based on patient's age to complete this topic MENINGOCOCCAL (MENACTRA/MENVEO) Aged Out No longer eligible based on patient's age to complete this topic documented as of this encounter Medical Devices Implanted Type Area Fuse Spooler Device Identifier Shelf Expiration Date Model / Serial / Lot Clareon Iol Aspheric Uv Absorbing Iol Implanted:Qty: 1 on 02/07/2024 by Martell Estrada DO at OR [facility] Left: Eye 04/18/2027 [id number] / [id number] / N/A Description:lexi uv iol +20.0d reference # [id number] documented as of this encounter Visit Diagnoses Diagnosis After cataract not obscuring vision, left- Primary documented in this encounter Advance Directives * Full Code [...]
--- OUTSIDE RECORDS SUMMARY | 2024-03-16 07:09 | External Medical Summary | Summary of Care ---
Author Name Unknown Organization [facility] Address [address] [facility] [place] [address] Phone [phone] Care Team Providers Care Clothing Supervisor Name Role Phone Unavailable Primary Care Provider Unavailabl e Reason for Visit * Reason Comments Dosage Adjustment Via Phone (anticoag Cl inic) Encounter Details Date Type Department Care Team (Latest Contact Info) Description 03/15/2024 7:00 AM EDT Anticoagulation Pharmacy, [address] [place] [address] [place] [address] Anticoagulation 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*; Portal vein thrombosis Allergies Active Allergy Reactions Criticality Noted Date Comments Salicylates Low 09/06/2006 Asprin - hives Bee Stings Hives Low 05/11/2010 Oxycodone Other (Please comment) Medium 09/07/2023 Hallucinations Penicillins Anaphylaxis High 09/06/2006 documented as of this encounter (statuses as of 03/15/2024) Medications Medication Sig Dispensed Refills Start Date End Date Status DAILY MULTIVITAMIN PO TABS 1 tab daily Active Warfarin Sodium 1 MG Oral Tablet (Coumadin)Indicati ons:Portal vein thrombosis,Anticoa gulation 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,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 90 Tablet 1 02/06/2024 Active documented as of this encounter (statuses as of 03/15/2024) Active Problems Problem Noted Date Diagnosed Date [...] as of this encounter (statuses as of 03/15/2024) Resolved Problems Problem Noted Date Diagnosed Date Resolved Date Hepatic cirrhosis 04/09/2009 10/28/2022 General medical exam 12/18/2008 009 Urinary tract infection 10/14/2008 100 07/2008 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 1 Overview: ICD-10 update of inactive term documented as of this encounter (statuses as of 03/15/2024) Immunizations Name Administration Dates Next Due Diptheria/Tetanus (Adult) 02/02/2006 PPD 04/29/2008 Pneumococcal Polysaccharide PPV23 (Pneumovax) 06/04/2009 Seasonal Influenza Virus Vac cine, Unspecified Formulation 06/18/2021,06/19/2020,04/30/2014,04/10,04/11/2012,04/15/2011,04/15/2010 ,04/10/2009 Seasonal Influenza, Quadriva lent Hd (Fluzone Hd) 05/07/2022,06/18/2021 Seasonal Influenza, Quadriva lent, No Preserve, IM 06/19/2020 Seasonal Influenza, Trivalen t, (IIV3), with Preserv, (Fluzone) 04/30/2014,04/10/2013,04/11/2012,04/15,04/15/2010,04/10/2009 TDAP (age 10 and older)(Boostrix) 07/13/2021 [...] as of this encounter Progress Notes * Amanda Kim, [facility] - 03/15/2024 8:48 AM EDT Medication Therapy Disease Management - Anticoagulation Patient: Ann Portillo | : 1945 Subjective Contacts Contact Date/Time Type Contact Phone/Fax 03/15/2024 08:50 AM EDT Phone (Outgoing) Ann Portillo (Self) [phone] (M) Spoke to Patient Patient-Reported Symptoms: Patient Findings Negatives: Signs/symptoms of thrombosis, Signs/symptoms of bleeding, Change in health, Change in alcohol use, Change in activity, Upcoming invasive procedure, Missed doses, Extra doses, Change in medications, Change in diet/appetite, Bruising Objective Current Warfarin Dose As of 03/15/2024 Warfarin maintenance plan: 1 mg (1 mg x 1) every day INR Result As of 03/15/2024 INR goal: 2.0-2.5 INR used for dosin.1 (03/14/2024) Assessment & Plan Warfarin Plan As of 03/15/2024 Full warfarin instructions: 1 mg every day No change documented: Amanda Kim RPh Next INR check: 03/28/2024 Repeat PT/INR in 2 week(s), patient preference. Declines sooner f/u. Weekly dose: not changed Additional Dosing Information: In need of f/u visit with previous PCP in order to ACC to continue to manage. Message sent to scheduling team. Description Takes in AM GML to go to area on Wednesdays and Fridays I spent a total of 10-19 minutes (exact time 10 mins) on the date of service in preparation, delivery, and documentation of the care provided to Ann Portillo excluding any time spent in the performance of separately billed services or time spent by another provider/QHP. Amanda Kim RPh Clinical Pharmacist 03/15/2024, 8:48 AM documented in this encounter Plan of Treatment Upcoming Encounters Date Type Department Care Team (Late st Contact Info) Description 03/29/2024 7:00 AM EDT Anticoagulation Pharmacy, [address] [place] [address] [place] [address] Health Maintenance Due Date Last Done Comments [...] 10/31/2013, Additional history exists COVID-19 Vaccine ( season) 2024 Influenza Vaccine (FLU shot) (#1) 2024 05/07/2022, 06/18/2021, 06/18/2021, Additional history exists DTap/Tdap Vaccines (2 - Td or Tdap) 07/13/2031 07/13/2021, 02/02/2006 HPV (Gardasil) Vaccine Aged Out No lo nger eligible based on patient's age to complete this topic MENINGOCOCCAL (MENACTRA/MENVEO) Aged Out No longer eligible based on patient's age to complete this topic documented as of this encounter Medical Devices Implanted Type Area Regional Telecommunications Specialist Device Identifier Shelf Expiration Date Model / Serial / Lot Clareon Iol Aspheric Uv Absorbing Iol Implanted:Qty: 1 on 02/07/2024 by Martell Estrada DO at OR [facility] Left: Eye 04/18/2027 CCA0T0 / [id number] / N/A Description:clareon uv iol +20.0d reference # CCA0T0 Adatosil 5000 Oil Es 5000 S - [id number] Implanted:Qty: 1 on 03/07/2024 by Ronny Grewal MD at OR [facility] Left: Eye BAUSCH & LOMB : SURGICAL 12/08/2025 ES 5000 S / / [id number] documented as of this encounter Visit Diagnoses Diagnosis Anticoagulation 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- Primary Encounter for therapeutic drug monitoring Portal vein thrombosis documented in this encounter Advance Directives * [...] occurred with: Not Discussed due to patient's condition"
--- OUTSIDE RECORDS SUMMARY | 2024-03-16 07:09 | External Medical Summary | Summary of Care ---
Author Name Unknown Organization [facility] Address [address] [facility] [place] [address] Phone [phone] Care Team Providers Care Mental Health Clinician Name Role Phone Unavailable Primary Care Provider Unavailabl e Reason for Visit * Reason Comments Dosage Adjustment Via Phone (anticoag Cl inic) Encounter Details Date Type Department Care Team (Latest Contact Info) Description 02/08/2024 5:30 PM EDT Anticoagulation Pharmacy, [address] [place] [address] [place] [address] Portal vein thrombosis* Allergies Active Allergy Reactions Criticality Noted Date [...] Tablet (Coumadin)Indicati ons:Portal vein thrombosis,Anticoa gulation 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,group home current use of anticoagulant therapy Take 1 [...] this encounter Progress Notes * Amanda Kim, [facility] - 02/08/2024 2:14 PM EDT Medication Therapy Disease Management - Anticoagulation Patient: Ann Portillo | : 1945 Subjective Contacts Type Contact Phone/Fax 02/08/2024 02:17 PM EDT Phone (Outgoing) Ann Portillo (Self) [phone] (M) Spoke to Patient Patient-Reported Symptoms: Patient Findings Negatives: Signs/symptoms of thrombosis, Signs/symptoms of bleeding, Change in health, Change in alcohol use, Change in activity, Upcoming invasive procedure, Missed doses, Extra doses, Change in medications, Change in diet/appetite, Bruising Objective Current Warfarin Dose As of 02/08/2024 Warfarin maintenance plan: 1 mg (1 mg x 1) every day INR Result As of 02/08/2024 INR goal: 2.0-2.5 INR used for dosin.4 (02/07/2024) Assessment & Plan Warfarin Plan As of 02/08/2024 Full warfarin instructions: 1 mg every day No change documented: Amanda Kim RPh Next INR check: 02/15/2024 Repeat PT/INR in 1 week(s) via GML Weekly dose: not changed Additional Dosing Information: Description Takes in AM GML to go to area on Wednesdays and Fridays Amanda Kim RPh Clinical Pharmacist 02/08/2024, 2:14 PM documented in this encounter Plan of Treatment Upcoming Encounters Date Type Department Care Team (Late st Contact Info) Description 02/15/2024 5:30 PM EDT Anticoagulation Pharmacy, [address] [place] [address] [place] [address] 02/17/2024 10:00 AM EDT Office Visit Ophthalmology, [facility] [address] [facility] [place] [address] Ronny Grewal MD [address] [place] [address] 03/08/2024 12:15 PM EDT Office Visit Ophthalmology, [facility] [address] [place] [address] Martell Estrada, DO [address] [place] [address] Health Maintenance Due Date Last Done Comments [...] this encounter Medical Devices Implanted Type Area [employer] Spanish Teacher Device Identifier Shelf Expiration Date Model / Serial / Lot Clareon Iol Aspheric Uv Absorbing Iol Implanted:Qty: 1 on 02/07/2024 by Martell Estrada DO at [facility] Left: Eye 04/18/2027 [id number] / [id number] / N/A Description:clareon uv iol +20.0d reference # [id number] documented as of this encounter Visit Diagnoses Diagnosis Portal vein thrombosis- Primary documented in this encounter Advance Directives [...]
--- OUTSIDE RECORDS SUMMARY | 2024-03-16 07:09 | External Medical Summary | Summary of Care ---
Author Name Unknown Organization [facility] Address [address] , [place] Care Team Providers Care Propagation Worker Name Role Phone Unavailable Primary Care Provider Unavailabl e Reason for Visit * Reason Onset Date Comments Procedure 02/27/2024 Encounter Details Date Type Department Care Team (Late st Contact Info) Description 02/27/2024 Telephone Pharm[address], [facility] [address] [facility] [place] [address] [place] [address] Procedure Allergies Active Allergy Reactions Criticality Noted Date Comments Salicylates Low 09/06/2006 Asprin - hives Bee Stings Hives Low 05/11/2010 Oxycodone Other (Please comment) Medium 09/07/2023 Hallucinations Penicillins Anaphylaxis High 09/06/2006 documented as of this encounter (statuses as of 02/28/2024) Medications Medication Sig Dispensed Refills Start Date End Date Status DAILY MULTIVITAMIN PO TABS 1 tab daily Active Warfarin Sodium 1 MG Oral Tablet (Coumadin)Indicati ons:Portal vein thrombosis,Anticoa gulation 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,jail current use of anticoagulant therapy Take 1 -2 tablets by mouth daily as directed by anticoagulation clinic 180 Tablet 3 03/01/2023 Active Atenolol 25 MG Oral Tablet (Tenormin)Indicati ons:HTN, goal below 140/90 Take 1 Tablet by mouth in the morning. 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 Attempted to call and make patient aware, no answer. Left message to return call to clinic. Amanda Kim RPh, PharmD Clinical Pharmacist - Optical Laboratory Technician Medication Therapy Disease Management Clinic 02/28/2024, 2:57 PM [phone] * Telephone Encounter - Amanda Kim RPh - 02/27/2024 4:15 PM EDT Noted by MT. Will plan to follow up with home phleb to check INR on 02/28 prior to procedure. Call placed to review directions at that time. Amanda Kim RP, PharmD Clinical Pharmacist - Optical Laboratory Technician Medication Therapy Disease Management Clinic 02/27/2024, 4:16 PM [phone] * Telephone Encounter - Gurinder Talbert CPhT - 02/27/2024 11:20 AM EDT Caller's name: Lilibeth Preferred call back number(OFFICE NUMBER FOR ): [phone] Reason for call: Received call from Ophthalmology, pt having procedure on 03/07 would like 2-3 day hold prior to surgery. Thank you, Gurinder Talbert CPhT [facility] 02/27/2024,11:20 AM documented in this encounter Plan of Treatment Upcoming Encounters Date Type Department Care Team (Late st Contact Info) Description 02/29/2024 7:05 AM EDT Laboratory Lab Mobile Phlebotomy [facility] [address] [facility] [place] [address] [facility], [facility] Mobile Home Draw [address] [place] [address] 03/01/2024 7:00 AM EDT Anticoagulation Pharmacy, [address] [place] [address] [place] [address] 03/07/2024 9:29 AM EDT Hospital Encounter OR [facility], Operating Room, [facility] 3rd Floor [address] [place] [address] Ronny Grewal MD [address] [place] [address] [place] [address] 03/07/2024 9:29 AM EDT - 03/07/2024 10:58 AM EDT Surgery OR [facility], Operating Room, [facility] 3rd Floor [address] [place] [address] Ronny Grewal MD [address] [place] [address] RIGHT REPAIR RETINAL DETACHMENT WITH VITRECTOMY 03/08/2024 12:15 PM EDT Office Visit Ophthalmology, [facility] [address] [facility] [place] [address] Martell Estrada, DO [address] [facility] [place] [address] 03/14/2024 7:00 AM EDT Laboratory Lab Mobile Phlebotomy [facility] [address] [employer] [place] [address] [facility], [facility] Mobile Home Draw [address] [place] [address] 03/15/2024 7:00 AM EDT Anticoagulation Pharmacy, [address] [place] [address] [place] [address] Scheduled Procedures Name Priority Associated Diagnoses Date/Ti [...] Additional history exists COVID-19 Vaccine ( season) 2023 Influenza Vaccine (FLU shot) (#1) [...] this encounter Medical Devices Implanted Type Area Geoscience Laboratory Technician Device Identifier Shelf Expiration Date Model / Serial / Lot Clareon Iol Aspheric Uv Absorbing Iol Implanted:Qty: 1 on 02/07/2024 by Martell Estrada DO at [facility] Left: Eye 04/18/2027 [id number] / [id number] / N/A Description:clareon uv iol +20.0d reference # [id number] documented as of this encounter Visit Diagnoses Diagnosis 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
--- OUTSIDE RECORDS SUMMARY | 2024-03-16 07:09 | External Medical Summary | Summary of Care ---
Author Name Unknown Organization [facility] Address [address] [facility] [place] [address] Phone [phone] Care Team Providers Care Orchestra Leader Name Role Phone Unavailable Primary Care Provider Unavailabl e Reason for Visit * Reason Comments Dosage Adjustment Via Phone (anticoag Cl inic) Encounter Details Date Type Department Care Team (Latest Contact Info) Description 03/01/2024 7:00 AM EDT Anticoagulation Pharmacy, [address] [place] [address] [place] [address] Portal vein thrombosis* Allergies Active Allergy Reactions Criticality Noted Date Comments Salicylates Low 09/06/2006 Asprin - hives Bee Stings Hives Low 05/11/2010 Oxycodone Other (Please comment) Medium 09/07/2023 Hallucinations Penicillins Anaphylaxis High 09/06/2006 documented as of this encounter (statuses as of 03/01/2024) Medications Medication Sig Dispensed Refills Start Date End Date Status DAILY MULTIVITAMIN PO TABS 1 tab daily Active Warfarin Sodium 1 MG Oral Tablet (Coumadin)Indicati ons:Portal vein thrombosis,Anticoa gulation 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,care home current use of anticoagulant therapy Take 1 -2 tablets by mouth daily as directed by anticoagulation clinic 180 Tablet 3 03/01/2023 Active Atenolol 25 MG Oral Tablet (Tenormin)Indicati ons:HTN, goal below 140/90 Take 1 Tablet by mouth in the morning. 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 Medication Therapy Disease Management - Anticoagulation Patient: Ann Portillo | : 1945 Subjective Patient-Reported Symptoms: Patient Findings Positives: Upcoming invasive procedure Negatives: Signs/symptoms of thrombosis, Signs/symptoms of bleeding, Change in health, Change in alcohol use, Change in activity, Missed doses, Extra doses, Change in medications, Change in diet/appetite, Bruising Objective Current Warfarin Dose As of 03/01/2024 Warfarin maintenance plan: 1 mg (1 mg x 1) every day INR Result As of 03/01/2024 INR goal: 2.0-2.5 INR used for dosin.5 (02/29/2024) Assessment & Plan Warfarin Plan As of 03/01/2024 Full warfarin instructions: 03/01: Hold; 03/02: 0.5 mg; 03/05: Hold; 03/06: Hold; Otherwise 1 mg every day Next INR check: 03/14/2024 Repeat PT/INR in 2 week(s) 1 week post-op Weekly dose: not changed Additional Dosing Information: Patient has another upcoming eye procedure with ophthalmology on 03/07. Requesting 2-3 day hold. INR elevated today. Instructed to HOLD today, decreased dose tomorrow. Will hold warfarin 3 days prior to procedure and recheck x1 week post-op. Patient expressed understanding. Also in need of f/u visit with previous PCP in order to ACC to continue to manage. Message sent to scheduling team. Description Takes in AM GML to go to area on Wednesdays and Fridays I spent a total of 20-29 minutes (exact time 25 mins) on the date of service in preparation, delivery, and documentation of the care provided to Ann Portillo excluding any time spent in the performance of separately billed services or time spent by another provider/QHP. Amanda Kim [facility] Clinical Pharmacist 03/01/2024, 3:40 PM documented in this encounter Plan of Treatment Upcoming Encounters Date Type Department Care Team (Late st Contact Info) Description 03/07/2024 12:25 PM EDT Hospital Encounter OR [facility], Operating Room, [facility] 3rd Floor [address] [place] [address] Ronny Grewal MD [address] [place] [address] 03/07/2024 12:25 PM EDT - 03/07/2024 1:54 PM EDT Surgery OR [facility], Operating Room, [facility] 3rd Floor [address] [facility] [place] [address] Ronny Grewal MD [address] [place] [address] RIGHT REPAIR RETINAL DETACHMENT WITH VITRECTOMY 03/08/2024 12:15 PM EDT Office Visit Ophthalmology, [facility] [address] [facility] [place] [address] Martell Estrada, DO [address] [place] [address] 03/14/2024 7:00 AM EDT Laboratory Lab Mobile Phlebotomy [facility] [address] [place] [address] [facility], [facility] Mobile Home Draw [address] [place] [address] 03/15/2024 7:00 AM EDT Anticoagulation Pharmacy, [address] [place] [address] [place] [address] Scheduled Procedures Name Priority Associated Diagnoses Date/Ti me REPAIR RETINAL DETACHMENT WITH VITRECTOMY 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
--- OUTSIDE RECORDS SUMMARY | 2024-03-16 07:09 | External Medical Summary | Summary of Care ---
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 [H33.002] Procedures REPAIR DETACHED RETINA, VITRECTOMY LEFT REPAIR RETINAL DETACHMENT WITH VITRECTOMY Ronny Grewal MD [address] [address] Or [facility] [address] [place] [address] Referral ID Status Reason Start Date Expiration Date Visits Re quested Visits Authorized [id number] Encounter Details Date Type Department Care Team (Latest Contact Info) Description 03/07/2024 9:38 AM EDT - 03/07/2024 12:33 PM EDT Hospital Encounter OR [facility], Operating Room, [facility] 3rd Floor [address] [place] [address] Ronny Grewal MD [address] [address] Discharge Disposition: Home - Self Care Allergies Active Allergy Reactions Criticality Noted Date Comments Salicylates Low 09/06/2006 Asprin - hives Bee Stings Hives Low 05/11/2010 Oxycodone Other (Please comment) Medium 09/07/2023 Hallucinations Penicillins Anaphylaxis High 09/06/2006 documented as of this encounter (statuses as of 03/08/2024) Medications Medication Sig Dispensed Refills Start Date End Date Status DAILY MULTIVITAMIN PO TABS 1 tab daily Active Warfarin Sodium 1 MG Oral Tablet (Coumadin)Indicati ons:Portal vein thrombosis,Anticoa gulation 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 90 Tablet 1 02/06/2024 Active documented as of this encounter (statuses as of 03/08/2024) Active Problems Problem Noted Date Diagnosed Date [...] as of this encounter (statuses as of 03/08/2024) Resolved Problems Problem Noted Date Diagnosed Date Resolved Date Hepatic cirrhosis 04/09/2009 10/28/2022 General medical exam 12/18/2008//2 009 Urinary tract infection 10/14/2008 10/0 07/2008 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 1 Overview: ICD-10 update of inactive term documented as of this encounter (statuses as of 03/08/2024) Immunizations Name Administration Dates Next Due Diptheria/Tetanus [...] on file documented as of this encounter Last Filed Vital Signs Vital Sign Reading Time Taken Comments Blood Pressure 133/63 03/07/2024 12:05 PM EDT Pulse 48 03/07/2024 12:10 PM EDT Temperature 36 C (96.8 F) 03/07/2024 11:51 AM EDT Respiratory Rate 14 03/07/2024 12:10 PM EDT Oxygen Saturation 100% 03/07/2024 12:05 PM EDT Inhaled Oxygen Concentration - - Weight - - Height - - Body Mass Index - - documented in this encounter Discharge Instructions * Discharge Instr - AVS* Ronny Grewal MD - 03/07/2024 11:52 AM EDT Please contact your physician at [phone] with any concerns or questions. After 5:00 p.m. or onthe weekend, call the [facility] Emergency Room at and ask for the gum cook credit and collections representative.Scheduling Services is available daily between the hours of 8:00 a.m. and 9:00 p.m. by calling . Your attending physician at the time of your discharge was: Ronny Grewal MD [address] [facility] [address] [place] [address] The information below provides you with the instructions and the list of medications you need to betaking following discharge after surgery. If you have any questions, please ask before leaving. Please carry this letter with you when you see your doctor in the clinic. If you have questions, you can reach us at the number above. Diet: Normal diet Activity: No strenuous activity for 1 weeks Driving: No Driving. Follow Up - Return appointment(s): 1PM at [facility] with Dr. Estrada Special Instructions: Right side or face down 10 minutes out of every hour. Avoid flat on your back. HOME INSTRUCTIONS AFTER RETINAL OR VITREOUS SURGERY EYEDROPS are for healing and infection prevention. The drops will be started the day after surgery AFTER your post operative visit and the patch is removed in the office. Do Not Remove The Patch Prior To Being Seen In The Office. 8 am (Breakfast) 12 noon (Lunch) 6 pm (Supper) 10 pm (Bedtime) Ofloxacin(MCKEON) X X X X Wait at least 5 minutes between putting the drops in so you do not rinse one out with the other. Prednisolone (PINK/WHITE) X (SHAKE) X (SHAKE) X (SHAKE) X (SHAKE) To instill eye drops, tilt head back, gently pull lower lid down and look up. Do not let the bottletip touch your eyelids. Only one drop is needed. To instill ointment, keep head level gently pull down the lower eyelid and apply a small strip to the inside of the lower lid (about the size of a gain of rice). An air bubble was placed in the eye to help with closure of the incisions. You will see this as a black ball in the lower part of the vision. 1. Leave the eye patch in place. This will be removed in the office at your first post operative visit the day after surgery. DO NOT RUB OR PUT PRESSURE ON THE EYE for 4 weeks after surgery. Keep theeyelids and lashes clean with a warm, moist washcloth. 2. You may watch TV, read, and perform routine activities,and stoop (unless the head positioning requirements instruct otherwise). You may eat your regular diet and resume all your previous medications unless otherwise instructed. 3. NO heavy lifting (over 15 lbs), or straining for two weeks. 4. NO exercise until approved by Dr. Grewal. It is OK to walk in most cases. 5. DO NOT go underwater for 3 weeks after surgery, e.g. no swimming or hot-tubs. 6. It is OK to shower, wash your face, shave, shampoo your hair the day AFTER surgery. Just keep your eyes closed as you normally would. 7. It is normal to have moderate soreness or irritation in the surgical eye over the next couple ofweeks. You may take two tablets of Tylenol or Advil every 4 - 6 hours as needed for relief. If painbecomes severe, call the office. 8. NO eye make-up for 2 weeks after surgery. 9. DO NOT make any eye drop changes to your other eye. 10. suggests that all patients remain in the area for a minimum of the 4 weeks following surgery if planning travel within the [place]. Patients traveling internationally should wait 2 months. Note: You can not fly in an airplane if you have a gas bubble in your eye. This could cause permanent blindness due to expansion of the gas. Driving up a steep mountain may cause the eye to ache until the pressure equalizes. If the eye, cheek or brow ache persists, call the office. 11. Discuss return to work with Dr. Grewal. Each situation is different based on the surgery andtype of occupation. 12. You can expect the following after surgery during the first 4-6 weeks. Itchiness/scratchiness around the eye. Redness in the white of the eye. Double vision/ Fluctuation in vision. Droopiness of the eyelid. 13. Light flashes or other visual stimuli are common during the postoperative period. Do not get alarmed. 13. Your vision should gradually improve in days and weeks after surgery. If your vision is gettingworse (not better), or if there is sudden loss of vision, or if your eye is warm to the touch with redness and discharge, or you are having increasing pain, CALL US IMMEDIATELY. IF YOU HAVE ANY PROBLEMS, QUESTIONS OR CONCERNS, DO NOT HESITATE TO CALL US AT [phone] AT ANY TIME After 5:00 p.m. or on the weekend, call the [facility] Emergency Room at and ask for the gum cook credit and collections representative. 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 Secondary cataract of left eye Surgery: left eye rd repair Pt examined and medically cleared for discharge Ronny Grewal MD 03/07/2024 11:52 AM documented in this encounter H&P Notes * Ronny Grewal MD - 03/07/2024 10:30 AM EDT HISTORY & PHYSICAL INTERVAL NOTE [facility] [address] [facility] [address] History and Physical Update: Name: Ann Portillo Location: OR [facility]/OR Date: 03/07/2024 Time: 10:30 AM DATE OF HISTORY AND PHYSICAL: 03/07/24 BP: 150 mmHg/73 mmHg (03/07/24949) Pulse: 50 (03/07/2450) Resp: 12 (03/07/24949) Temp: 36.39 C (03/07/24949) Temp Summary: Temp Min: 36.4 C (97.5 F) Max: 36.4 C (97.5 F) SpO2: 97 % (03/07/24949) O2 flow rate: Supplemental O2 Delivery: Room Air, None (03/07/24949) Heart exam: wnl Lung exam: wnl I have reviewed the H&P previously performed and examined the patient today. There are no new findings noted. left eye today * Ronny Grewal MD - 03/07/2024 10:29 AM EDT History and Physical 03/07/2024 Ann Portillo is a 78 year old female who presents for RD OS Problem List Patient Active Problem List Diagnosis Code HTN, goal below 140/90 I10 Hepatitis K75.9 Acquired hemolytic anemia (HCC) D59.9 Benign neoplasm of colon D12.6 ADVANCE DIRECTIVE INFORMATION Portal vein thrombosis I81 Subclinical hypothyroidism E03.8 Other cirrhosis of liver (HCC) K74.69 Nonexudative age-related macular degeneration, bilateral, early dry stage H35.3131 Left retinal detachment H33.22 Combined forms of age-related cataract of both eyes H25.813 Med list reviewed Current Medications Current Facility-Administered Medications Medication Dose Route Frequency Provider Last Rate Last Admin atropine sulfate 1 % ophthalmic solution 1 Drop 1 Drop Left eye Q5 Minutes Ronny Grewal MD 1 Drop at 09/07/23 1131 Ofloxacin (Ocuflox) 0.3 % ophthalmic solution 1 Drop 1 Drop Left eye Q5 Minutes Ronny Grewal MD 1 Drop at 09/07/23 1131 PHENYLephrine (Ak-Dilate) 2.5 % ophthalmic solution 1 Drop 1 Drop Left eye Q5 Minutes Ronny Grewal MD 1 Drop at 09/07/23 1131 prednisoLONE Acetate (Pred Forte) 1 % ophthalmic suspension 1 Drop 1 Drop Left eye Q5 Minutes Ronny Grewal MD 1 Drop at 09/07/23 1130 Past Surgical History Past Surgical History: Procedure Laterality Date ANESTH, UPPER GI ENDOSCOPIC PROCS 05/13/2010 ANESTHESIA FOR UPPER GI ENDOSCOPIC PROCEDURES (ERCP OR UPPER GI) performed by MARIANGEL RAMACHANDRAN at ENDOSCOPY [facility] BREAST SURGERY PROCEDURE NEC left, benign COLONOSCOPY W/ LESION REMOVAL, SNARE 01/24/08 villous polyp--repeat 1 year COLONOSCOPY, DIAGNOSTIC (RECTUM) 12/02/2011 COLONOSCOPY FLEXIBLE PROXIMAL DIAGNOSTIC performed by JOSE ANGEL JEFFREY at ENDOSCOPY [facility] COLORECTAL CANCER SCREEN; COLON 01/14/09 repeat in 3 yrs EGD, FLEXIBLE, DIAGNOSTIC 10/22/08 2 shallow healing pre-pyloric ulcers, bx show no h. pylori EGD, FLEXIBLE, DIAGNOSTIC 04/06/2010 done mild portal gastropathy REPEAT IN 2 YEARS EGD, FLEXIBLE, DIAGNOSTIC 03/22/2013 UPPER GI ENDOSCOPY DIAGNOSTIC performed by Jose Angel Jeffrey MD at ENDOSCOPY [facility] EGD, FLEXIBLE, W/BIOPSY 01/24/08 H.Pylori RIGHT HEART CATHETERIZATION 01/17/09 RIGHT HEART CATH performed by JALEN LAKE at CARDIAC LABS [facility] TOTAL ABD HYSTERECTOMY W/WO REMOVAL OF TUBE(S) 1999 due to endometrious Family History: Non-Contributory Social History Socioeconomic History Marital status: Spouse name: Emeka Number of children: 2 Years of education: 12 Highest education level: Not on file 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 History 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 Employer: [employer] Tobacco Use Smoking status: Never Smokeless tobacco: Never Substance and Sexual Activity Alcohol use: Yes Comment: occasionally yrs ago; quit in 03/18 Drug use: No Sexual activity: Yes Partners: Male Other Topics Concern Service No Blood Transfusions No Caffeine Concern Not Asked 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 Comment: cleaning solvents Hobby Hazards Not Asked Sleep Concern No Stress Concern Not Asked Weight Concern Not Asked Special Diet Not Asked Back Care Not Asked Exercise Not Asked Bike Helmet Not Asked Seat Belt Yes Self-Exams Not Asked Social History Narrative Not on file Social Determinants of Health Financial Resource Strain: Not on file Food Insecurity: Not on file Transportation Needs: Not on file Physical Activity: Not on file Stress: Not on file Social Connections: Not on file Intimate Partner Violence: Not on file Housing Stability: Not on file REVIEW OF SYSTEMS: -Diabetes- no -Thyroid Disease- no -Heart Disease- no -Neuro(Stroke, TIA, Migraines,etc.)- No -Lung(COPD, Emphysemia, etc.)- No -Skin(Cancer, Eczema, Rash, etc)- No -Bone/Muscle(Tendonitis,Arthritis,Back Injury,etc)- No -GI(Weight Loss, Ulcers, Vomiting, etc.)- No -Blood Disorder/Swollen Lymph Nodes- No -Do you smoke- No -Surgical Hx- no -Hx Cancer- No -Family Hx of Glaucoma- no -Eye Hx: See physicians note All other findings negative. Allergies Review of patient's allergies indicates: Allergen Reactions Penicillins Anaphylaxis Asa [Salicylates] Asprin - hives Bee Stings Hives Oxycodone Exam: see todays vitals in eye vitals in initial encounter BP 150/73 | Pulse 50 | Temp 36.4 C (97.5 F) (Tympanic) | Resp 12 | SpO2 97% Physical Exam Constitutional: Pt appears well-developed. Eyes: Pupils are equal, round, and reactive to light. Neck: Normal range of motion. Cardiovascular: Normal rate. Pulmonary/Chest: Effort normal. Abdominal: Soft. Musculoskeletal: Normal range of motion. Neurological: Pt is alert. Skin: Skin is warm. Psychiatric: Pt has a normal mood and affect. A/P: ICD-10-CM 1. Left retinal detachment H33.22 Pt cleared for surgery Type of Surgery: RD repair OS MD Ronny Mohr MD 03/07/2024 documented in this encounter Nursing Notes * Sonido Olson RN - 03/01/2024 11:09 AM EDT PREOP PATIENT INFORMATION AND EDUCATION: MEDICATION INSTRUCTIONS: The day of surgery/procedure, you may TAKE the following medications with a sip of water up to 2 hours prior to your arrival time: Atenolol STOP taking the following medications the noted number of days prior to surgery/procedure unless otherwise specified by your surgeon: Please stop taking Warfarin for three days prior to your procedure. The last dose should be on Saturday 03/03. Please follow surgeon's instructions regarding use of Aspirin, Coumadin, Plavix, Eliquis, and any other blood thinner including NSAIDs (non-steroidal anti- inflammatory drugs, eg, Advil, Ibuprofen, Motrin, Aleve, Naproxen); if you have any questions regarding your anticoagulation therapy please contact your surgeon's clinic. Please verify any proposed stoppage of your anticoagulation therapy with the agent's prescribing provider. 10 days prior to surgery/procedure Stop all Herbal supplements, Green Tea, Turmeric, Melatonin, CBD, THC, etc. Stop all Vitamins (including Vitamin E) 24 hours prior to surgery/procedure DO NOT consume any alcohol. DO NOT use medical marijuana. DO NOT smoke or use tobacco products of any kind after midnight prior to surgery. *Using any of these products may increase your risks of procedural complications. IF IT IS LESS THAN RECOMMENDED STOPPAGE TIME PLEASE STOP AT TIME OF NOTIFICATION. FASTING RECOMMENDATIONS: To reduce risk, it is important for all elective surgery patients to follow the specific fasting guidelines listed below. If you have received more stringent guidelines, please follow the MOST RESTRICTIVE guidelines that you have been provided. DO NOT EAT after midnight on the night prior to your surgery date. You are allowed to drink clear liquids up to two hours prior to arrival time to the hospital or surgery center. Examples of clear liquids include water, clear fruit juice without pulp, clear carbonated beverages, clear tea, and black coffee. Any drinks given by your surgical service take as directed. /pediatric patients who currently drink breast milk, formula, and non-human milk must not eat after midnight. These patients are allowed to drink only the liquids listed below up to two hours prior to arrival time to the hospital or surgery center: Ingested Material Minimum Fasting Time Clear liquid After midnight up to 2 hours prior to arrival time Breast milk Up to 4 hours prior to arrival time formula Up to 6 hours prior to arrival time Non-human milk Up to 6 hours prior to arrival time THE DAY BEFORE YOUR SURGERY: -Drink plenty of fluid the day before your surgery. Contact your surgeon's office if you develop any of the following within 2 weeks of surgery: A cold Infection Fever Shingles Chicken pox or exposure to chicken pox Open areas such as scrapes, cuts, pozo or other skin conditions Rashes GENERAL INSTRUCTIONS FOR PREPARING FOR SURGERY: BATHING INSTRUCTIONS: Bathe the evening prior to and the morning of surgery/procedure. Cleanse your body using ONLY anti-bacterial soap (eg, Dial, Safeguard) or any specific soap/cleansers and instructions provided by your surgeon (eg, Chlorhexidine). -You should brush your teeth the morning of surgery. Do NOT apply any lotions, powders, sprays, creams, oils, make-up, or deodorants after bathing. No hairspray, or nail belarusian on fingers or toes. Day of surgery/procedure do not use tampons. If you wear contacts wear your eyeglasses if available otherwise bring your contact supplies with you to remove them prior to your surgery/procedure. If you wear glasses or dentures, please bring cases in which you can store them during your surgery. Please remove all piercings and jewelry and leave them at home. Wear comfortable and loose clothing. -Please leave all valuables at home. -If you use a CPAP and are staying overnight, please bring your mask and tubing with you to the hospital. -If you use an assistive mobility device (walker, cane, etc), please label it with your name and bring to hospital. -An escort electric screw driver operator is required if you are being discharged the same day of the surgery. You should have a responsible adult over the age of 18 [address] you home. This person should be present with youin the hospital at the time of discharge and for the first 24 hours after the surgery to support your needs. If you are taking a taxi home, you must have your responsible constitution party accompany you in the taxi ride home at the time of discharge. OR times subject to change. Please check voicemail messages the day/evening before your surgery forany updates. PRE-OP: You will be taken to the pre-op area where your vital signs (blood pressure, pulse and temperature)will be taken. Any preparations that need to be done will be done there. When it is time for your surgery, you will be taken to the operating room. PARENTS OF PEDIATRIC PATIENTS WILL BE ALLOWED TO STAY WITH THEIR CHILDREN UNTIL THEY ARE ESCORTED TO THE OPERATING ROOM OUTPATIENT SURGERY PATIENTS: After your surgery you will be taken to the Same Day Surgery Unit when you are awake and will go home from there. You will get instructions about your home care before you leave. Arrange to have someone drive you home from the hospital. You may not drive for 24 hours after anesthesia. You must havean adult stay with you at home for 24 hours after your operation. This is very important. If you are not able to comply with these guidelines, your Short Stay surgery cannot be done. ADMISSION PATIENTS: After your stay in the recovery area, you will be taken to your room. Your family may visit you in your room based on current visitation policy. If a next day discharge is expected, it is important to make arrangements for a electric screw driver operator to take you home. Please be aware our visitation policies are subject to change Professionals, attendants, caregivers or family members are allowable visitors for patients with intellectual, developmental or cognitive disabilities, communication barriers or behavioral concerns. Because patients' and families' needs vary, they will be taken into account when applying visitation restrictions. [address] [place] [address] Contact#: [phone] You will be called by the [facility] team the day before surgery between 8:00 AM and 4:00 PM with yourarrival time and instructions. Please enter through the Main Entrance, check in at the registration desk directly inside the doors. Take the Main Lobby Elevator to the 3rd floor. Wait in the waiting room directly outside the elevators for staff to bring you into the unit. Family members will wait in the waiting room until calledin by the staff. THANK YOU FOR CHOOSING [facility]! * Sonido Olson RN - 03/01/2024 10:50 AM EDT Attempted to call patient for pre-op phone call. Message left for patient to call back. * Johny Munroe RN - 02/17/2024 12:28 PM EDT Attempted to call patient for pre-op phone call. Message left for patient to call back. documented in this encounter OR Notes * OR Surgeon - Ronny Grewal MD - 03/07/2024 11:48 AM EDT OPERATIVE RECORD Name: Ann Portillo Date: 03/07/2024 Location: OR [facility] Service: Ophthalmology Pre-op Diagnosis: left eye Retinal tear 2. Retinal detachment, recurrent 3. Posterior opacification of lens Post-op Diagnosis: Same NAME OF PROCEDURES: left eye 1. Pars plana vitrectomy 2. Retinal detachment repair 3. 5000 CS SO injection 4. Mechanical capsulotomy Complications: None. Estimated Blood Loss: Under 5 cc DESCRIPTION OF PROCEDURE: The patient was identified in the preoperative holding area. The patient's left eye was confirmed as the surgical eye. It was then marked and dilated. The surgical procedure was reviewed with the patient and all questions answered. The informed consent was confirmed to be located in the chart. The patient was taken to the operating room and given IV sedation while a retrobulbar block was administered in the usual fashion without any complication. The eye was prepped with 5% Betadine solution and thoroughly irrigated and dried. A sterile ophthalmic drape and speculum were placed in the eye. The 25-gauge system was used and trocars were used to make sclerotomies 3.5 - 4 mm posterior to the alfaro bus inferotemporally, superotemporally and superonasally. The infusion line was inserted into the inferotemporal port and viewed through the pupil to ensure proper positioning in the vitreous cavity before being turned on. A complete core vitrectomy with peripheral shaving was performed. No retinal tear was identified A complete peripheral retinal examination with scleral indentation revealed prior laser. I believe the retinotomy may have opened up as there was heme at the edge. The vitreous over the tear and over all other suspicious areas was meticulously removed. The identified tear(s) and any suspicious area was marked with endodiathermy. A retinotomy was created at 4 in the midperiphery A fluid air exchange was performed with a silicone tip cannula through the retinotomy to flatten the retina by removing the subretinal fluid. The retina was found to be completely flat under air. Endolaser photocoagulation was then performed around the tears and the retinotomy. The air was exchanged for 5000 CS I removed the ports and closed with 7-0 Vicryl. One drop of ofloxacin and prednisolone were given. The lid speculum was removed. Ophthalmic ointment, 2 patches were placed on the eye. The patient was taken to recovery in stable condition and was directed that right side positioning was necessary. Surgeon: Ronny Grewal MD Assistants: none Anesthesia: Monitored Local Anesthesia with Sedation Drains: none Estimated Blood Loss: <1 ml. IV Fluids: <500 ml. Urine Output: N/A Specimens/Disposition: None Apparent Intraoperative Complications: None Patient Condition: stable Disposition: Post Anesthesia Care Unit Attestation: I performed the procedure Ronny Grewal MD 03/07/2024 cc: Professional Reimbursement and Compliance documented in this encounter Plan of Treatment Upcoming Encounters Date Type Department Care Team (Late st Contact Info) Description 03/08/2024 1:00 PM EDT Office Visit Ophthalmology, [facility] [address] [place] [address] Martell Estrada DO 21 [facility] [place] [address] 03/14/2024 7:00 AM EDT Laboratory Lab Mobile Phlebotomy [facility] [address] [place] [address] [facility], [facility] Mobile Home Draw [address] [place] [address] 03/15/2024 7:00 AM EDT Anticoagulation Pharmacy, [address] [place] [address] [place] [address] Health Maintenance Due Date Last Done Comments [...] this encounter Medical Devices Implanted Type Area [employer] Device Identifier Shelf Expiration Date Model / Serial / Lot Clareon Iol Aspheric Uv Absorbing Iol Implanted:Qty: 1 on 02/07/2024 by Martell Estrada DO at OR [facility] Left: Eye 04/18/2027 [id number] / [id number] / N/A Description:clareon uv iol +20.0d reference # [id number] Adatosil 5000 Oil Es 5000 S - [id number] Implanted:Qty: 1 on 03/07/2024 by Ronny Grewal MD at OR [facility] Left: Eye [employer]USCH [employer] LOMB : SURGICAL 12/08/2025 ES 5000 S / / [id number] documented as of this encounter Visit Diagnoses Diagnosis 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- Primary 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 documented in this encounter Administered Medications Inactive Administered Medications - up to 3 most recent administrations Medication Order MAR Action Action Date Dose Rate Site atropine sulfate 1 % ophthalmic solution 1 Drop 1 Drop, Left eye, Q5 MINUTES, First dose on Tue03/07/24 at 1030, Last dose on Tue03/07/24 at 1040, For 3 doses, Begin 90 min preop, Pre-Op Given 03/07/2024 10:24 AM EDT 1 Drop Given 03/07/2024 10:20 AM EDT 1 Drop Given 03/07/2024 10:18 AM EDT 1 Drop Ofloxacin (Ocuflox) 0.3 % ophthalmic solution 1 Drop 1 Drop, Left eye, Q5 MINUTES, First dose on Tue03/07/24 at 1030, Last dose on Tue03/07/24 at 1040, For 3 doses, PRE-OP: One drop to left eye every 5 minutes for 3 doses, Pre-Op Given 03/07/2024 10:24 AM EDT 1 Drop Given 03/07/2024 10:20 AM EDT 1 Drop Given 03/07/2024 10:18 AM EDT 1 Drop PHENYLephrine (Ak-Dilate) 2.5 % ophthalmic solution 1 Drop 1 Drop, Left eye, Q5 MINUTES, First dose on Tue03/07/24 at 1030, Last dose on Tue03/07/24 at 1040, For 3 doses, PRE-OP: 1 drop to left eye every 5 minutes for 3 doses, Pre-Op Given 03/07/2024 10:24 AM EDT 1 Drop Given 03/07/2024 10:20 AM EDT 1 Drop Given 03/07/2024 10:18 AM EDT 1 Drop prednisoLONE Acetate (Pred Forte) 1 % ophthalmic suspension 1 Drop 1 Drop, Left eye, Q5 MINUTES, First dose on Tue03/07/24 at 1030, Last dose on Tue03/07/24 at 1040, For 3 doses, PRE-OP: One drop to left eye every 5 minutes for 3 doses., Pre-Op Given 03/07/2024 10:24 AM EDT 1 Drop Given 03/07/2024 10:20 AM EDT 1 Drop Given 03/07/2024 10:18 AM EDT 1 Drop documented in this encounter Active and Recently Administered Medications Times are shown in EDT. Scheduled Medication Order 03/05/2024 03/06/2024 03/07/2024 atropine sulfate 1 % ophthalmic solution 1 Drop (COMPLETED) 1 Drop, Left eye, Q5 MINUTES, First dose on Tue03/07/24 at 1030, Last dose on Tue03/07/24 at 1040, For 3 doses, Begin 90 min preop, Pre-Op 1018 (Given - Provid er: Maryam Abad RN)1020 (Given - Provider: Maryam Abad RN)1024 (Given - Provider: Maryam Abad RN) Ofloxacin (Ocuflox) 0.3 % ophthalmic solution 1 Drop (COMPLETED) 1 Drop, Left eye, Q5 MINUTES, First dose on Tue03/07/24 at 1030, Last dose on Tue03/07/24 at 1040, For 3 doses, PRE-OP: One drop to left eye every 5 minutes for 3 doses, Pre-Op 1018 (Given - Provid er: Maryam Abad RN)1020 (Given - Provider: Maryam Abad RN)1024 (Given - Provider: Maryam Abad RN) PHENYLephrine (Ak-Dilate) 2.5 % ophthalmic solution 1 Drop (COMPLETED) 1 Drop, Left eye, Q5 MINUTES, First dose on Tue03/07/24 at 1030, Last dose on Tue03/07/24 at 1040, For 3 doses, PRE-OP: 1 drop to left eye every 5 minutes for 3 doses, Pre-Op 1018 (Given - Provid er: Maryam Abad RN)1020 (Given - Provider: Maryam Abad RN)1024 (Given - Provider: Maryam Abad RN) prednisoLONE Acetate (Pred Forte) 1 % ophthalmic suspension 1 Drop (COMPLETED) 1 Drop, Left eye, Q5 MINUTES, First dose on Tue03/07/24 at 1030, Last dose on Tue03/07/24 at 1040, For 3 doses, PRE-OP: One drop to left eye every 5 minutes for 3 doses., Pre-Op 1018 (Given - Provid er: Maryam Abad RN)1020 (Given - Provider: Maryam Abad RN)1024 (Given - Provider: Maryam Abad RN) PRN Medication Order 03/05/2024 03/06/2024 03/07/2024 bupivacaine (PF) 4.5 mL, Hyaluronidase Human 150 Units, lidocaine 2 % 4.5 mL inj (CANCELED) ONCE PRN INTRA PROCEDURE, Starting on Tue03/07/24 at 1112, Until Tue03/07/24 at 1149, Intra-Op 1112 (Given - Provid er: Ronny Grewal MD) DUOVISC inj KIT (CANCELED) ONCE PRN INTRA PROCEDURE, Starting on Tue03/07/24 at 1113, Until Tue03/07/24 at 1149, Intra-Op 1113 (Given - Provid er: Ronny Grewal MD) EPINEPHrine 0.3 mg in balanced salt solution 500 mL inj (CANCELED) ONCE PRN INTRA PROCEDURE, Starting on Tue03/07/24 at 1107, Until Tue03/07/24 at 1149, Intra-Op 1107 (Given - Provid er: Ronny rGewal MD) Triamcinolone Acetonide (Kenalog) 40 MG/ML inj (CANCELED) ONCE PRN INTRA PROCEDURE, Starting on Tue03/07/24 at 1113, Until Tue03/07/24 at 1149, Intra-Op 1113 (Given - Provid er: Ronny Grewal MD) documented in this encounter Advance Directives * [...]
--- OUTSIDE RECORDS SUMMARY | 2024-03-16 07:09 | External Medical Summary | Summary of Care ---
Author Name Unknown Organization [facility] Address [address] [place] [address] Phone [phone] Care Team Providers Care Change Manager Name Role Phone Unavailable Primary Care Provider Unavailabl e Reason for Visit * Reason Onset Date Comments Appointment 03/08/2024 Post op appt. Encounter Details Date Type Department Care Team (Late st Contact Info) Description 03/08/[address] [phone] Services, Scheduling [address] [place] [address] Appointment (Post op appt. ) Allergies Active Allergy Reactions Criticality Noted Date Comments Salicylates Low 09/06/2006 Asprin - hives Bee Stings Hives Low 05/11/2010 Oxycodone Other (Please comment) Medium 09/07/2023 Hallucinations Penicillins Anaphylaxis High 09/06/2006 documented as of this encounter (statuses as of 03/09/2024) Medications Medication Sig Dispensed Refills Start Date End Date Status DAILY MULTIVITAMIN PO TABS 1 tab daily Active Warfarin Sodium 1 MG Oral Tablet (Coumadin)Indicati ons:Portal vein thrombosis,Anticoa gulation 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,half-way current use of anticoagulant therapy Take 1 -2 tablets by mouth daily as directed by anticoagulation clinic 180 Tablet 3 03/01/2023 Active Atenolol 25 MG Oral Tablet (Tenormin)Indicati ons:HTN, goal below 140/90 Take 1 Tablet by mouth in the morning. 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 Pt also states needs to reschedule 03/15 830 appt tatahe can not make it at 830, changed appt to 03/14 at 1100 * Telephone Encounter - Debby Turner OSA - 03/08/2024 5:07 PM EDT INCLUDE THE FOLLOWING INFORMATION CANCELING/RESCHEDULING- DATE OF SURGERY: 03.07.24 DOCTOR PREFORMING SURGERY: Dr Estrada REASON FOR CANCELS:na CALLER (WHOS CALLING): pt CONTACT NUMBER [phone] Pt was advised of appt 03.15.[address] Christiansen, but she says it's to be scheduled with Dr Baez. Please verify with pt. Voicemail left on after hours surgery scheduling phone [phone] regarding post op appt. NOTIFY PATIENT: DEPARTMENT WILL BE CALLING YOU SOON THEY REVIEW THE MESSAGE. PLEASE NOTE THIS COULD BE UP TO A WEEK [facility]- ROUTE TO [id number] . [facility] R[facility]TE [facility] [id number] [facility]- ROUTE TO [id number] [place]- ROUTE TO [id number] documented in this encounter Plan of Treatment Upcoming Encounters Date Type Department Care Team (Late st Contact Info) Description 03/14/2024 7:00 AM EDT Laboratory Lab Mobile Phlebotomy [facility] [address] [facility] [place] [address] [facility], Gml Mobile Home Draw [address] [facility] [place] [address] 03/14/2024 11:00 AM EDT Office Visit Ophthalmology, [facility] [address] [place] [address] Trent Christiansen DO [address] [place] [address] 03/15/2024 7:00 AM EDT Anticoagulation Pharmacy, [address] [place] [address] [place] [address] Health Maintenance Due Date Last Done Comments [...] this encounter Medical Devices Implanted Type 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
--- OUTSIDE RECORDS SUMMARY | 2024-03-16 07:09 | External Medical Summary | Summary of Care ---
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*; Intermediate stage nonexudative age-related macular degeneration of right eye Allergies Active Allergy Reactions Criticality Noted Date Comments Salicylates Low 09/06/2006 Asprin - hives Bee Stings Hives Low 05/11/2010 Oxycodone Other (Please comment) Medium 09/07/2023 Hallucinations Penicillins Anaphylaxis High 09/06/2006 documented as of this encounter (statuses as of 02/17/2024) Medications Medication Sig Dispensed Refills Start Date End Date Status DAILY MULTIVITAMIN PO TABS 1 tab daily Active Warfarin Sodium 1 MG Oral Tablet (Coumadin)Indicati ons:Portal vein thrombosis,Anticoa gulation 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,long-term current use of anticoagulant therapy Take 1 -2 tablets by mouth daily as directed by anticoagulation clinic 180 Tablet 3 03/01/2023 Active Atenolol 25 MG Oral Tablet (Tenormin)Indicati ons:HTN, goal below 140/90 Take 1 Tablet by mouth in the morning. 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 Mood and affect: normal POST-RETINA SURGERY NOTE: HPI: Ann Portillo is a 77 year old female s/p retinal surgery. Nursing Notes: Gwendolyn [place] TECH 02/17/24 1004 Signed Ann Portillo presents for p/o check. 1 week post-op ECCE w/IOL insertion Surgical eye LEFT EYE Patient denies complaints Current Ophthalmic Medications: Pred Forte and Ofloxacin 1gtt 4 times daily in surgical eye Are you taking the drops as directed? Yes Base Eye Exam Visual Acuity (Snellen - Linear) Right Left Dist sc 20/40 -1 20/800 Dist ph sc NI Tonometry (Tonopen, 10:03 AM) Right Left Pressure 15 9 Pupils Dark Shape React APD Right 3.5 Round Brisk None Left 3.5 Round Trace Extraocular Movement Right Left Full, Ortho Full, Ortho Neuro/Psych Oriented x3: Yes Mood/Affect: Normal Dilation Both eyes: 0.5% Proparacaine @ 10:02 AM Dilation #2 Left eye: 1.0% Mydriacyl, 2.5% Phenylephrine @ 10:04 AM Dilation #3 Left eye: 1.0% Mydriacyl @ 10:07 AM Slit Lamp and Fundus Exam External Exam Right Left External Normal Normal Slit Lamp Exam Right Left Lids/Lashes Normal Normal Conjunctiva/Sclera White and quiet White and quiet Cornea Clear Clear Anterior Chamber Deep and quiet Deep and quiet Iris Dilated, normal Dilated, normal Lens 2+ Nuclear sclerosis PCIOL 3+ PCO Fundus Exam Right Left Vitreous s/[p PPV Disc Normal C/D Ratio 0.3 Macula detached Vessels Normal Periphery Tear at 12 with laser, inferior heavy laser OCT OS SRF A/P: 1. 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 A vision threatening retinal detachment is present. We discussed the risks and benefits of the treatment options including pneumatic retinopexy, scleral buckle and vitrectomy. The surgical success rate is in the range of 80-90 percent. 10- 20% risk of failure to presence or development of proliferative vitreoretinopathy. The patient elects to proceed with PPV. -Patient is to f/u immediately if she develops worsening redness, eye pain, decrease in vision, nausea/vomiting, or discharge from eye, as these could be signs of an infection or increased pressure. 2. PCIOL OS Significant PCO PF qid until bottle is finished Ronny Grewal MD documented in this encounter Nursing Notes * Gwendolyn [place] TECH - 02/17/2024 9:58 AM EDT Ann Portillo presents for p/o check. 1 week post-op ECCE w/IOL insertion Surgical eye LEFT EYE Patient denies complaints Current Ophthalmic Medications: Pred Forte and Ofloxacin 1gtt 4 times daily in surgical eye Are you taking the drops as directed? Yes documented in this encounter Plan of Treatment Upcoming Encounters Date Type Department Care Team (Late st Contact Info) Description 03/08/2024 12:15 PM EDT Office Visit Ophthalmology, [facility] [address] [facility] [place] [address] Martell Estrada DO 21 [facility] [place] [address] 03/14/2024 7:00 AM EDT Laboratory Lab Mobile Phlebotomy [facility] [address] [facility] [place] [address] [facility], Gml Mobile Home Draw [address] [place] [address] 03/15/2024 7:00 AM EDT Anticoagulation Pharmacy, [address] [place] [address] [place] [address] Scheduled Procedures Name Priority Associated Diagnoses Date/Ti me REPAIR RETINAL DETACHMENT WI VITRECTOMY 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 Health Maintenance Due Date Last Done Comments [...] this encounter Medical Devices Implanted Type Area Lacquer Spray Booth Operator Device Identifier Shelf Expiration Date Model / Serial / Lot Clareon Iol Aspheric Uv Absorbing Iol Implanted:Qty: 1 on 02/07/2024 by Martell Estrada DO at [facility] Left: Eye 04/18/2027 [id number] / [id number] / N/A Description:clareon uv iol +20.0d reference # [id number] documented as of this encounter Visit Diagnoses Diagnosis 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
--- OUTSIDE RECORDS SUMMARY | 2024-03-16 07:09 | External Medical Summary | Summary of Care ---
Author Name Unknown Organization [facility] Address [address] [facility] [place] [address] Phone [phone] Care Team Providers Care Riveter [employer]obile Brakes Name Role Phone Unavailable Primary Care Provider Unavailabl e Reason for Visit * Reason Comments Dosage Adjustment Via Phone (anticoag Cl inic) Encounter Details Date Type Department Care Team (Latest Contact Info) Description 02/15/2024 5:30 PM EDT Anticoagulation Pharmacy, [address] [place] [address] [place] [address] Portal vein thrombosis* Allergies Active Allergy Reactions Criticality Noted Date Comments Salicylates Low 09/06/2006 Asprin - hives Bee Stings Hives Low 05/11/2010 Oxycodone Other (Please comment) Medium 09/07/2023 Hallucinations Penicillins Anaphylaxis High 09/06/2006 documented as of this encounter (statuses as of 02/15/2024) Medications Medication Sig Dispensed Refills Start Date End Date Status DAILY MULTIVITAMIN PO TABS 1 tab daily Active Warfarin Sodium 1 MG Oral Tablet (Coumadin)Indicati ons:Portal vein thrombosis,Anticoa gulation 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,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 Call placed to f/u tomorrow. Amanda Kim RPh, PharmD Clinical Pharmacist - Rn [facility] Medication Therapy [facility] 02/15/2024, 4:08 PM [phone] documented in this encounter Plan of Treatment Upcoming Encounters Date Type Department Care Team (Late st Contact Info) Description 02/16/2024 7:00 AM EDT Anticoagulation Pharmacy, [address] [place] [address] [place] [address] 02/17/2024 10:00 AM EDT Office Visit Ophthalmology, [facility] [address] [facility] [place] [address] Ronny Grewal MD [address] [place] [address] 03/08/2024 12:15 PM EDT Office Visit Ophthalmology, [facility] [address] [facility] [place] [address] Martell Estrada DO 21 [facility] [place] [address] Health Maintenance Due Date Last Done Comments [...] this encounter Medical Devices Implanted Type 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
--- OUTSIDE RECORDS SUMMARY | 2024-03-16 07:09 | External Medical Summary | Summary of Care ---
Author Name Unknown Organization [facility] Address [address] [facility] [place] [address] Phone [phone] Care Team Providers Care Customer Data Technician Name Role Phone Unavailable Primary Care Provider Unavailabl e Reason for Visit * Reason Comments Dosage Adjustment Via Phone (anticoag Cl inic) Encounter Details Date Type Department Care Team (Latest Contact Info) Description 02/16/2024 7:00 AM EDT Anticoagulation Pharmacy, [address] [place] [address] [place] [address] Anticoagulation 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*; Portal vein thrombosis Allergies Active Allergy Reactions Criticality Noted Date Comments Salicylates Low 09/06/2006 Asprin - hives Bee Stings Hives Low 05/11/2010 Oxycodone Other (Please comment) Medium 09/07/2023 Hallucinations Penicillins Anaphylaxis High 09/06/2006 documented as of this encounter (statuses as of 02/16/2024) Medications Medication Sig Dispensed Refills Start Date End Date Status DAILY MULTIVITAMIN PO TABS 1 tab daily Active Warfarin Sodium 1 MG Oral Tablet (Coumadin)Indicati ons:Portal vein thrombosis,Anticoa gulation 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,detention current use of anticoagulant therapy Take 1 -2 tablets by mouth daily as directed by anticoagulation clinic 180 Tablet 3 03/01/2023 Active Atenolol 25 MG Oral Tablet (Tenormin)Indicati ons:HTN, goal below 140/90 Take 1 Tablet by mouth in the morning. 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 1 Overview: ICD-10 update of inactive term documented as of this encounter (statuses as of 02/16/2024) Immunizations Name Administration Dates Next Due Diptheria/Tetanus [...] as of this encounter Progress Notes * Beka Gomez RP - 02/16/2024 2:43 PM EDT Medication Therapy Disease Management - Anticoagulation Patient: Ann Portillo | : 1945 Subjective Contacts Type Contact Phone/Fax 02/16/2024 02:43 PM EDT Phone (Outgoing) Ann Portillo (Self) [phone] (M) Spoke to Patient - pt requested for longer followup at 4 weeks Patient-Reported Symptoms: Patient Findings Negatives: Signs/symptoms of thrombosis, Signs/symptoms of bleeding, Change in health, Change in alcohol use, Change in activity, Upcoming invasive procedure, Missed doses, Extra doses, Change in medications, Change in diet/appetite, Bruising Objective Current Warfarin Dose As of 02/16/2024 Warfarin maintenance plan: 1 mg (1 mg x 1) every day INR Result As of 02/16/2024 INR goal: 2.0-2.5 INR used for dosin.5 (02/15/2024) Assessment & Plan Warfarin Plan As of 02/16/2024 Full warfarin instructions: 1 mg every day No change documented: Licha Menjivar [facility] Next INR check: 03/15/2024 Repeat PT/INR in 4 week(s) Weekly dose: not changed Additional Dosing Information: Description Takes in AM GML to go to area on Wednesdays and Fridays I spent a total of 10-19 minutes (exact time 15 mins) on the date of service in preparation, delivery, and documentation of the care provided to Ann Portillo excluding any time spent in the performance of separately billed services or time spent by another provider/QHP. Beka Gomez (Tina), PharmD, [facility] PGY1 Natural Resources Technician Medication Therapy Management Clinic 02/16/2024 2:50 PM documented in this encounter Plan of Treatment Upcoming Encounters Date Type Department Care Team (Late st Contact Info) Description 02/17/2024 10:00 AM EDT Office Visit Ophthalmology, [facility] [address] [facility] [place] [address] Ronny Grewal MD [address] [place] [address] 03/08/2024 12:15 PM EDT Office Visit Ophthalmology, [facility] [address] [place] [address] Martell Estrada DO 21 [facility] [place] [address] 03/15/2024 7:00 AM EDT Anticoagulation Pharmacy, [address] [place] [address] [place] [address] Health Maintenance Due Date Last Done Comments [...] this encounter Medical Devices Implanted Type Area Hydrology Technician Device Identifier Shelf Expiration Date Model / Serial / Lot Clareon Iol Aspheric Uv Absorbing Iol Implanted:Qty: 1 on 02/07/2024 by Martell Estrada DO at OR [facility] Left: Eye 04/18/2027 [id number] / [id number] / N/A Description:clareon uv iol +20.0d [...]
--- OUTSIDE RECORDS SUMMARY | 2024-03-16 07:09 | External Medical Summary ---
Author Name Unknown Address Unknown Organization K01:[facility] [place] [address] [place] [address] Laboratory Report Ordering Provider Test Date Status SANDRA,JUANNARDA 02/29/2024 07:51:00 Final Warfarin Therapy
INR: 2 .0-3.0 conventional anticoagulation
INR: 2.5- 3.5 high intensity anticoagulation Observation Date Value Abnormality Reference (Units ) Status PT 02/29/2024 07:51:00 35.5 Above high normal 11 .6-15.2 (seconds) Final INR 02/29/2024 07:51:00 3.5 Above high normal 0. 8-1.2 Final Performing Location [facility] [place] [address] [place] [address]
--- OUTSIDE RECORDS SUMMARY | 2024-03-16 07:09 | External Medical Summary | Summary of Care ---
Author Name Unknown Organization [facility] Address [address] , [place] Care Team Providers Care Pick Up Attendant Name Role Phone Unavailable Primary Care Provider Unavailabl e Reason for Visit * Reason Onset Date Comments Procedure 02/27/2024 Encounter Details Date Type Department Care Team (Late st Contact Info) Description 02/27/2024 Telephone Pharmacy, [facility] [address] [facility] [place] [address] [place] [address] Procedure Allergies Active Allergy Reactions Criticality Noted [...] Tablet (Coumadin)Indicati ons:Portal vein thrombosis,Anticoa gulation 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,custodial current use of anticoagulant therapy Take 1 [...] - 02/27/2024 4:15 PM EDT Noted by MTM. Will plan to follow up with home phleb to check INR on 02/28 prior to procedure. Call placed to review directions at that time. Amanda Kim RPh, PharmD Clinical Pharmacist - Automotive Service Manager Medication Therapy Disease Management Clinic 02/27/2024, 4:16 PM Ph.[phone] * Telephone Encounter - Gurinder Talbert CPhT - 02/27/2024 11:20 AM EDT Caller's name: Lilibeth Preferred call back number(OFFICE NUMBER FOR ): [phone] Reason for call: Received call from Ophthalmology, pt having procedure on 03/07 would like 2-3 day hold prior to surgery. Thank you, Gurinder Talbert CPhT Water Quality Tester [facility] 02/27/2024,11:20 AM documented in this encounter Plan of Treatment Upcoming Encounters Date Type Department Care Team (Late st Contact Info) Description 03/01/2024 7:00 AM EDT Anticoagulation Pharmacy, [address] [place] [address] [place] [address] 03/07/2024 9:29 AM EDT Hospital Encounter OR [facility], Operating Room, [facility] 3rd Floor [address] [facility] [address] Ronny Grewal MD [address] [place] [address] [place] [address] 03/07/2024 9:29 AM EDT - 03/07/2024 10:58 AM EDT Surgery OR [facility], Operating Room, [facility] 3rd Floor [address] [facility] [place] [address] Ronny Grewal MD [address] [place] [address] [place] [address] RIGHT REPAIR RETINAL DETACHMENT WITH VITRECTOMY 03/08/2024 12:15 PM EDT Office Visit Ophthalmology, [facility] [address] [facility] [place] [address] Martell Estrada, DO 21 [place] [address] 03/14/2024 7:00 AM EDT Laboratory Lab Mobile Phlebotomy [facility] [address] [place] [address] [facility], Gml Mobile Home Draw [address] [place] [address] 03/15/2024 7:00 AM EDT Anticoagulation Pharmacy, [address] [place] [address] [place] [address] Scheduled Procedures Name Priority Associated Diagnoses Date/Ti [...] this encounter Medical Devices Implanted Type Area Weaver Hand Device Identifier Shelf Expiration Date Model / Serial / Lot Clareon Iol Aspheric Uv Absorbing Iol Implanted:Qty: 1 on 02/07/2024 by Martell Estrada DO at OR [facility] Left: Eye 04/18/2027 [id number] / [id number] / N/A Description:lexi uv iol +20.0d [...]
--- OUTSIDE RECORDS SUMMARY | 2024-03-16 07:09 | External Medical Summary | Summary of Care ---
Author Name Unknown Organization [facility] Address [address] , [place] Care Team Providers Care Heater Mechanic Name Role Phone Unavailable Primary Care Provider Unavailabl e Reason for Visit * Reason Onset Date Comments Procedure 02/27/2024 Encounter Details Date Type Department Care Team (Late st Contact Info) Description 02/27/2024 Telephone Pharmacy, [facility] [address] [facility] [place] [address] [place] [address] Procedure Allergies Active Allergy Reactions Criticality Noted [...] Encounter - Amanda Kim RPh - 02/28/2024 4:19 PM EDT Patient Phone Numbers Called and spoke to patient to make aware. Amanda Kim RPh, PharmD Clinical Pharmacist - Typewriter Mechanic Medication Therapy Disease Management Clinic 02/28/2024, 4:19 PM Ph.[phone] * Telephone Encounter - Amanda Kim RPh - 02/28/2024 2:56 PM EDT Mobile lab rescheduled for 02/28. Attempted to call and make patient aware, no answer. Left message to return call to clinic. Amanda Kim RPh, PharmZelalem Clinical Pharmacist - Typewriter Mechanic Medication Therapy Disease Management Clinic 02/28/2024, 2:57 PM [phone] * Telephone Encounter - Amanda Kim RPh - 02/27/2024 4:15 PM EDT Noted by MTM. Will plan to follow up with home phleb to check INR on 02/28 prior to procedure. Call placed to review directions at that time. Amanda Kim RPh, PharmZelalem Clinical Pharmacist - Typewriter Mechanic Medication Therapy Disease Management Clinic 02/27/2024, 4:16 PM [phone] * Telephone Encounter - Gurinder Talbert CPhT - 02/27/2024 11:20 AM EDT Caller's name: Lilibeth Preferred call back number(OFFICE NUMBER FOR ): [phone] Reason for call: Received call from Ophthalmology, pt having procedure on 03/07 would like 2-3 day hold prior to surgery. Thank you, Gurinder Talbert CPhT Sap Portal Developer [facility] 02/27/2024,11:20 AM documented in this encounter Plan of Treatment Upcoming Encounters Date Type Department Care Team (Late st Contact Info) Description 02/29/2024 7:05 AM EDT Laboratory Lab Mobile Phlebotomy [facility] [address] [place] [address] [address] [facility], Gml Mobile Home Draw [address] [place] [address] [address] 03/01/2024 7:00 AM EDT Anticoagulation Pharmacy, [address] [place] [address] [place] [address] 03/07/2024 9:29 AM EDT Hospital Encounter OR [facility], Operating Room, [facility] 3rd Floor [address] [facility] [place] [address] Ronny Grewal MD [address] [place] [address] 03/07/2024 9:29 AM EDT - 03/07/2024 10:58 AM EDT Surgery OR [facility], Operating Room, [facility] 3rd Floor [address] [facility] [place] [address] Ronny Grewal MD [address] [place] [address] RIGHT REPAIR RETINAL DETACHMENT WITH VITRECTOMY 03/08/2024 12:15 PM EDT Office Visit Ophthalmology, [facility] 132 [facility] [place] [address] Martell Estrada, DO 21 [facility] [place] [address] 03/14/2024 7:00 AM EDT Laboratory Lab Mobile Phlebotomy [facility] [address] [place] [address] Mv, [facility] Mobile Home Draw [address] [place] [address] 03/15/2024 7:00 AM EDT Anticoagulation Pharmacy, [address] [place] [address] [place] [address] Scheduled Procedures Name Priority Associated Diagnoses Date/Ti [...] this encounter Medical Devices Implanted Type Area Actuary Clerk Device Identifier Shelf Expiration Date Model / Serial / Lot Clareon Iol Aspheric Uv Absorbing Iol Implanted:Qty: 1 on 02/07/2024 by Martell Estrada DO at OR [facility] Left: Eye 04/18/2027 CCA0T0 / [id number] / N/A Description:clareon uv iol +20.0d [...]
--- OUTSIDE RECORDS SUMMARY | 2024-03-16 07:09 | External Medical Summary | Summary of Care ---
Author Name Unknown Organization [facility] Address [address] [facility] [address] Phone [phone] Care Team Providers Care Promotions Associate Name Role Phone Unavailable Primary Care Provider Unavailabl e Encounter Details Date Type Department Care Team (Late st Contact Info) Description 03/15/2024 Telephone Pharmacy, [address] [place] [id number] [facility] [place] [address] Allergies Active Allergy Reactions Criticality Noted Date [...] Tablet (Coumadin)Indicati ons:Portal vein thrombosis,Anticoa gulation 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,intermission coordinator current use of anticoagulant therapy Take 1 [...] Telephone Encounter - Amanda Kim RPh - 03/15/2024 8:51 AM EDT Patient needs to schedule follow up with previous PCP (Dr Felipe) in order for anticoagulation clinic to continue to manage her. Can you please assist with scheduling? Thanks! Amanda Kim RPh, PharmD Clinical Pharmacist - Certified Technician Specialist Medication Therapy Disease Management Clinic 03/15/2024, 8:52 AM [phone] documented in this encounter Plan of Treatment Upcoming Encounters Date Type Department Care Team (Late st Contact Info) Description 03/29/2024 7:00 AM EDT Anticoagulation Pharmacy, [address] [place] [address] [place] [address] Health Maintenance Due Date Last Done Comments [...] history exists COVID-19 Vaccine ( - season) 2024 Influenza Vaccine (FLU shot) (#1) [...] this encounter Medical Devices Implanted Type Area Silverware Buffing Machine Operator Device Identifier Shelf Expiration Date Model / Serial / Lot Clareon Iol Aspheric Uv Absorbing Iol Implanted:Qty: 1 on 02/07/2024 by Martell Estrada DO at OR [facility] Left: Eye 04/18/2027 CCA0T0 / [id number] / N/A Description:clareon uv iol +20.0d reference # [id number] Adatosil 5000 Oil Es 5000 S - [id number] Implanted:Qty: 1 on 03/07/2024 by Ronny Grewal MD at OR [facility] Left: Eye BAUSCH & LOMB : SURGICAL 12/08/2025 ES 5000 S / / [id number] documented as of this encounter Advance Directives [...]
--- OUTSIDE RECORDS SUMMARY | 2024-03-16 07:09 | External Medical Summary | Summary of Care ---
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* Allergies Active Allergy Reactions Criticality Noted Date [...] Tablet (Coumadin)Indicati ons:Portal vein thrombosis,Anticoa gulation 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,exterminator termite current use of anticoagulant therapy Take 1 [...] of this encounter Progress Notes * Martell Estrada, - 03/08/2024 1:00 PM EDT 03/08/2024 [facility] Ophthalmology Post-operative Clinic Note HPI: Ann Portillo is a 78 year old pt who presents to the eye clinic today for 1 day post-op PPV/EL/SO/capsulotomy c/o recurrent RD OS (Uri, 02/2024) POHx: Mac-off RD OS s/p PPV for recurrent RD w/PVR OS (Uri) CE PCIOL OS (Sean TCC White cataract IFIS CCA0T0 20.0 02/07/2024) VAsc: CF IOP: 11 mmHg LL: Normal Conjunctiva: Sclerotomy closed x 3 w/ vicryl Cornea: Suture temporal, 1+ edema, 1x1mm epi defect paracentral 2 o'clock AC: 1+ c/f Iris: residual dilation Lens: PCIOL, open capsule Vitreous: SO Optic nerve: PPA Macula: appears flat Vessels: Normal Periphery: Laser/heme, appears flat A/P: 1 day post op PPV/EL/SO/capsulotomy c/o recurrent RD OS (Uri, 02/2024) Doing well today Chance negative wounds Normal IOP Expected post operative inflammation is seen Reviewed eye drops: Ocuflox QID Prednisolone QID Emycin ophth ointment QHS or more PRN pain Reviewed activity restrictions - no bending or lifting, no strenuous activity. Wear eye shield at bedtime. Position as directed right side for 1 week Call with flashes, floaters, dec vision eye pain. Advised of head strength and conditioning coach coverage for after hours/weekend emergencies. RTC 1 week or sooner prn. Martell Estrada DO 03/08/24 documented in this encounter Nursing Notes * Gracie Jack COA - 03/08/2024 12:14 PM EDT Pt states "Last night felt like water running over it" documented in this encounter Plan of Treatment Upcoming Encounters Date Type Department Care Team (Late st Contact Info) Description 03/14/2024 7:00 AM EDT Laboratory Lab Mobile Phlebotomy [facility] [address] [address] [facility], Gml Mobile Home Draw [address] [place] [address] 03/15/2024 7:00 AM EDT Anticoagulation Pharmacy, [address] [place] [address] [place] [address] Health Maintenance Due Date Last Done Comments [...] this encounter Medical Devices Implanted Type Area Router Tender Device Identifier Shelf Expiration Date Model / Serial / Lot Clareon Iol Aspheric Uv Absorbing Iol Implanted:Qty: 1 on 02/07/2024 by Martell Estrada DO at OR [facility] Left: Eye 04/18/2027 CCA0T0 / [id number] / N/A Description:clareon uv iol +20.0d reference # [id number] Adatosil 5000 Oil Es 5000 S - [id number] Implanted:Qty: 1 on 03/07/2024 by Ronny Grewal MD at OR [facility] Left: Eye BAUSCH & LOMB : SURGICAL 12/08/2025 ES 5000 S / / [id number] documented as of this encounter Visit Diagnoses Diagnosis 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
--- OUTSIDE RECORDS SUMMARY | 2024-03-16 07:10 | External Medical Summary | Summary of Care ---
Author Name Unknown Organization [facility] Address [address] [facility] [place] [address] Phone [phone] Care Team Providers Care Health And Nutrition Specialist Name Role Phone Unavailable Primary Care Provider Unavailabl e Encounter Details Date Type Department Care Team (Late st Contact Info) Description 02/03/2024 Telephone Family Medicine [address] [place] [address] Luis Alberto Vargas MD [address] [place] [address] [place] [address] Allergies Active Allergy Reactions Criticality Noted Date Comments Salicylates Low 09/06/2006 Asprin - hives Bee Stings Hives Low 05/11/2010 Oxycodone Other (Please comment) Medium 09/07/2023 Hallucinations Penicillins Anaphylaxis High 09/06/2006 documented as of this encounter (statuses as of 02/03/2024) Medications Medication Sig Dispensed Refills Start Date End Date Status DAILY MULTIVITAMIN PO TABS 1 tab daily Active Warfarin Sodium 1 MG Oral Tablet (Coumadin)Indicati ons:Portal vein thrombosis,Anticoa gulation 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,penitentiary current use of anticoagulant therapy Take 1 -2 tablets by mouth daily as directed by anticoagulation clinic 180 Tablet 3 03/01/2023 Active prednisoLONE Acetate 1 % Ophthalmic Suspension (Pred Forte) Instill 1 Drop into the left eye in the morning and 1 Drop at noon and 1 Drop in the evening and 1 Drop before bedtime. 5 mL 10/28/2023 Active Additional Information Patient not taking.Reported on 11/25/2023 Atenolol 25 MG Oral Tablet (Tenormin)Indicati ons:HTN, goal below 140/90 Take 1 Tablet by mouth in the morning. 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 Felipe received a tiger text from they eye doctor office for this pt who needs cataract surgery. Her surgery is . Jean with pilgram on Tuesday at 11:00. Pt aware. documented in this encounter Plan of Treatment Upcoming Encounters Date Type Department Care Team (Latest Contact Info) Description 02/06/2024 11:00 AM EDT Office Visit Family Medicine [address] [place] [address] Luis Alberto Vargas MD [address] [place] [address] [place] [address] 02/07/2024 2:35 PM EDT Hospital Encounter OR [facility], Operating Room, [facility] - 4th Floor [address] [place] [address] Martell Estrada DO 21 [place] [address] 02/07/2024 2:35 PM EDT - 02/07/2024 3:28 PM EDT Surgery OR [facility], Operating Room, [facility] - 4th Floor [address] [place] [address] Martell Estrada DO 21 [place] [address] EXTRACAPSULAR CATARACT REMOVAL COMPLEX WITH IOL 02/08/2024 7:45 AM EDT Office Visit Ophthalmology, [place] [address] [place] [address] Martell Estrada DO [address] [place] [address] 02/08/2024 5:30 PM EDT Anticoagulation Pharmacy, [address] [place] [address] [place] [address] 02/17/2024 10:00 AM EDT Office Visit Ophthalmology, [address] [place] [address] Ronny Grewal MD [address] [place] [address] [place] [address] 03/08/2024 8:00 AM EDT Office Visit Ophthalmology, [address] [place] [address] Martell Estrada, DO 21 [place] [address] 03/08/2024 12:15 PM EDT Office Visit Ophthalmology, [address] [place] [address] Martell Estrada, DO 21 [place] [address] 03/22/2024 8:30 AM EDT Office Visit Ophthalmology, [address] [place] [address] Martell Estrada, DO 21 [place] [address] 04/05/2024 9:15 AM EDT Office Visit Ophthalmology, [address] [place] [address] Martell Estrada, DO 21 [place] [address] 04/05/2024 10:00 AM EDT Office Visit Ophthalmology, [address] [place] [address] Martell Estrada, DO 21 [place] [address] Scheduled Procedures Name Priority Associated Diagnoses Date/Ti me EXTRACAPSULAR CATARACT REMOVAL COMPLEX WITH IOL Secondary cataract of left eye, unspecified secondary cataract type 02/07/2024 2:35 PM EDT Health Maintenance Due Date Last [...] 02/02/2006 *BASELINE EKG FOR HTN Completed 10/29/2009 HPV (Gardasil) Vaccine Aged Out No lo nger eligible based on patient's age to complete this topic MENINGOCOCCAL (MENACTRA/MENVEO) Aged Out No longer eligible based on patient's age to complete this topic documented as of this encounter Medical Devices Not on filedocumented as of this encounter Advance Directives * Full Code (Latest Code Status on File) Date Activated Date Inactivated Comments 10/20/2023 1:39 [...]
--- OUTSIDE RECORDS SUMMARY | 2024-03-16 07:10 | External Medical Summary | Summary of Care ---
Author Name Unknown Organization [facility] Address [address] [facility] [place] [address] Phone [phone] Care Team Providers Care Car Whacker Name Role Phone Unavailable Primary Care Provider Unavailabl e Reason for Visit * Reason Comments Physical-Exam PRE-OP Encounter Details Date Type Department Care Team (Latest Contact Info) Description 02/06/2024 11:00 AM EDT Office Visit Family Medicine [address] [place] [phone] Luis Alberto Vargas MD [address] [place] [address] [place] [address] Combined forms of age-related cataract of both eyes*; Left retinal detachment; Secondary cataract of left eye, unspecified secondary cataract type; Portal vein thrombosis; HTN, goal below 140/90; Nonexudative age-related macular degeneration, bilateral, early dry stage; 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; Subclinical hypothyroidism Allergies Active Allergy Reactions Criticality Noted Date Comments Salicylates Low 09/06/2006 Asprin - hives Bee Stings Hives Low 05/11/2010 Oxycodone Other (Please comment) Medium 09/07/2023 Hallucinations Penicillins Anaphylaxis High 09/06/2006 documented as of this encounter (statuses as of 02/06/2024) Medications Medication Sig Dispensed Refills Start Date End Date Status DAILY MULTIVITAMIN PO TABS 1 tab daily Active Warfarin Sodium 1 MG Oral Tablet (Coumadin)Indicati ons:Portal vein thrombosis,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 90 Tablet 4 Active prednisoLONE Acetate 1 % Ophthalmic Suspension (Pred Forte) Instill 1 Drop into the left eye in the morning and 1 Drop at noon and 1 Drop in the evening and 1 Drop before bedtime. 5 mL 4 02/06/20 24 Discontinu ed(Patient preference /discontin uation) documented as of this encounter (statuses as of 02/06/2024) Active Problems Problem Noted Date Diagnosed Date [...] as of this encounter (statuses as of 02/06/2024) Resolved Problems Problem Noted Date Diagnosed Date Resolved Date Hepatic cirrhosis 04/09/2009 10/28/2022 General medical exam 12/18/2008 009 Urinary tract infection 10/14/200807/2008 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 1 Overview: ICD-10 update of inactive term documented as of this encounter (statuses as of 02/06/2024) Immunizations Name Administration Dates Next Due Diptheria/Tetanus [...] Age 7 and older, IM (Adacel) 10/15/2010([place]: Patient Refused) documented as of this encounter [...] Sign Reading Time Taken Comments Blood Pressure 122/74 02/06/2024 10:39 AM EDT Pulse 58 02/06/2024 10:39 AM EDT Temperature - - Respiratory Rate 16 02/06/2024 10:39 AM EDT Oxygen Saturation 99% 02/06/2024 10:39 AM EDT Inhaled Oxygen Concentration - - Weight 93.9 kg (207 lb) 02/06/2024 10:39 AM EDT Height 162.6 cm (5' 4") 02/06/2024 10:39 AM EDT Body Mass Index 35.53 02/06/2024 10:39 AM EDT documented in this encounter Progress Notes * Luis Alberto Vargsa MD - 02/06/2024 10:44 AM EDT Ann is here for preop for cataract surgery tomorrow. She pretty much can't see out of the left eye since July. She had a retinal detachment and other problems. She has a little arthritis, is afraid of falling, but is fine otherwise. She has been treated since 2008 for portal vein thrombosis and Amanda put a note in she does not need to hold the Coumadin. Denies nausea, vomiting, or diarrhea. Denies fevers, chills or sweats. No complaints of headache, trouble with hearing. Eating well, with no bowel or bladder complaints. Denies chest pain or palpitations. Denies shortness of breath, PND, or orthopnea. No skin rashes or breakdown. No changes in mentation. No syncope or falls. All others negative other than those noted in HPI. 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 pylori infection 01/24/2008 EGD HTN, goal below 140/90 07/11/2007 Hypertension, benign Left retinal detachment Lumbar stenosis Nonexudative age-related macular degeneration, bilateral, early dry stage Peptic ulcer Peptic Ulcer Disease Subclinical hypothyroidism 10/13/2021 TSH 5.67, T4 1.3 Past Surgical History: Procedure Laterality Date ANESTH, UPPER GI ENDOSCOPIC PROCS 05/13/2010 ANESTHESIA FOR UPPER GI ENDOSCOPIC PROCEDURES (ERCP OR UPPER GI) performed by MARIANGEL RAMACHANDRAN at ENDOSCOPY [facility] BREAST SURGERY PROCEDURE NEC left, benign COLONOSCOPY W/ LESION REMOVAL, SNARE 01/24/08 villous polyp--repeat 1 year COLONOSCOPY, DIAGNOSTIC (RECTUM) 12/02/2011 COLONOSCOPY FLEXIBLE PROXIMAL DIAGNOSTIC performed by JOSE ANGEL JEFFREY at ENDOSCOPY [facility] COLORECTAL CANCER SCREEN; COLON 01/14/09 repeat in 3 yrs EGD, FLEXIBLE, DIAGNOSTIC 10/22/08 2 shallow healing pre-pyloric ulcers, bx show no h. pylori EGD, FLEXIBLE, DIAGNOSTIC 04/06/2010 done mild portal gastropathy REPEAT IN 2 YEARS EGD, FLEXIBLE, DIAGNOSTIC 03/22/2013 UPPER GI ENDOSCOPY DIAGNOSTIC performed by Jose Angel Jeffrey MD at ENDOSCOPY [facility] EGD, FLEXIBLE, W/BIOPSY 01/24/08 H.Pylori REPAIR DETACHED RETINA, VITRECTOMY Left 09/07/2023 REPAIR RETINAL DETACHMENT WITH VITRECTOMY performed by Ronny Grewal MD at [facility] REPAIR DETACHED RETINA, VITRECTOMY Left 10/20/2023 LEFT REPAIR RETINAL DETACHMENT WITH VITRECTOMY performed by Ronny Grewal MD at OR [facility] RIGHT HEART CATHETERIZATION 01/17/09 RIGHT HEART CATH performed by JALEN LAKE at CARDIAC LABS [facility] TOTAL ABD HYSTERECTOMY W/WO REMOVAL OF TUBE(S) 1999 due to endometrious Review of patient's allergies indicates: Allergen Reactions Penicillins Anaphylaxis Oxycodone Other (Please comment) Hallucinations Asa [Salicylates] Asprin - hives Bee Stings Hives Social History Socioeconomic History Marital status: Spouse name: Emeka Number of children: 2 Years of education: 12 Highest education level: Not on file 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 History 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 (Adult - for ages 18 years and over): Not on file Housing Stability: Not on file Current Outpatient Medications Medication Sig Dispense Refill DAILY MULTIVITAMIN PO TABS 1 tab daily Warfarin Sodium 1 MG Oral Tablet (Coumadin) Take 1 -2 tablets by mouth daily as directed by anticoagulation clinic 180 Tablet 3 prednisoLONE Acetate 1 % Ophthalmic Suspension (Pred Forte) Instill 1 Drop into the left eye in themorning and 1 Drop at noon and 1 Drop in the evening and 1 Drop before bedtime. (Patient not taking: Reported on 11/25/2023) 5 mL 0 Atenolol 25 MG Oral Tablet (Tenormin) Take 1 Tablet by mouth in the morning. 90 Tablet 0 No current facility-administered medications for this visit. Lab Results Component Value Date/Time TSH - [facility] 5.67 (H) 10/13/2021 09:12 AM TSH - [facility] 3.20 10/26/2010 07:13 AM TSH - [facility] 3.05 10/07/2008 07:29 AM TSH - [facility] 5.02 (H) 11/10/2007 04:10 PM T4 Results: Lab Results Component Value Date/Time T4, FREE - [facility] 1.3 10/13/2021 09:12 AM T4, FREE - [facility] 0.99 10/26/2010 07:13 AM T4, FREE - [facility] 1.13 10/07/2008 07:29 AM Results for orders placed or performed in visit on 04/30/14 COMPR METAB PANEL Result Value Ref Range BUN 16 6 - 20 mg/dL Creatinine 0.9 0.5 - 1.2 mg/dL Sodium 139 135 - 146 mmol/L Potassium 4.2 3.5 - 5.1 mmol/L Chloride 102 98 - 111 mmol/L CO2 23 22 - 32 mmol/L Anion Gap 14 7 - 15 mmol/L Glucose 84 70 - 120 mg/dL Albumin 4.1 3.8 - 5.0 g/dL AST 64 (H) 10 - 35 U/L Alkaline Phosphatase 123 0 - 153 U/L Bilirubin, Total 2.9 (H) 0.3 - 1.3 mg/dL Calcium 9.9 8.3 - 10.5 mg/dL Protein 8.1 6.0 - 8.3 g/dL ALT 34 10 - 35 U/L Estimated Glomerular Filtration Rate >60.0 >60 CBC Results: Results for orders placed or performed in visit on 10/31/13 CBC Result Value Ref Range WBC 4.06 4.00 - 10.80 K/uL RBC 4.05 3.85 - 5.15 M/uL HGB 13.0 12.0 - 14.5 g/dL HCT 39.2 36.0 - 44.5 % MCV 96.8 81.5 - 97.5 fL MCH 32.1 27.0 - 34.0 pg MCHC 33.2 32.0 - 36.0 g/dL RDW 13.7 11.5 - 15.5 % PLT 81 (L) 140 - 400 K/uL MPV 11.2 (H) 6.6 - 11.1 fL Results for orders placed or performed in visit on 10/13/21 BASIC METABOLIC PANEL Result Value Ref Range BUN 12 6 - 20 mg/dL Creatinine 0.8 0.5 - 1.0 mg/dL Estimated Glomerular Filtration Rate 79 >=60 mL/min Sodium 140 135 - 146 mmol/L Potassium 4.2 3.5 - 5.1 mmol/L Chloride 104 98 - 107 mmol/L CO2 25 22 - 32 mmol/L Anion Gap 11 7 - 15 mmol/L Glucose 101 70 - 120 mg/dL Calcium 9.1 8.4 - 10.2 mg/dL O: Blood pressure 122/74, pulse 58, resp. rate 16, height 1.626 m (5' 4"), weight 93.9 kg (207 lb),SpO2 99%. General appearance: well developed, well nourished and in no acute distress. Neck is supple without adenopathy or thyromegaly. Chest is symmetrical and moves normally. The lungs are clear wi thout wheezes, rales, rhonchi or rubs, and the heart is regular without murmurs or gallops, or ectopy. PMI not displaced. 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 Follow Up: Return if symptoms worsen or fail to improve. documented in this encounter Nursing Notes * Venecia Pemberton RN - 02/06/2024 10:45 AM EDT Pt here for pre-op for cataracts at [facility] tomorrow, pt is on coumadin, by Zack states she does Not need to hold coumadin documented in this encounter Plan of Treatment Upcoming Encounters Date Type Department Care Team (Latest Contact Info) Description 02/07/2024 2:35 PM EDT Hospital Encounter OR [facility], Operating Room, [facility] - 4th Floor [address] [place] [address] Martell Estrada DO [address] [place] [address] 02/07/2024 2:35 PM EDT - 02/07/2024 3:28 PM EDT Surgery OR [facility], Operating Room, [facility] - 4th Floor [address] [place] [address] Martell Estrada DO [address] [place] [address] EXTRACAPSULAR CATARACT REMOVAL COMPLEX WITH IOL 02/08/2024 7:45 AM EDT Office Visit Ophthalmology, [facility] [address] [place] [address] Martell Estrada DO [address] [place] [address] 02/08/2024 5:30 PM EDT Anticoagulation Pharmacy, [address] [place] [address] [place] [address] 02/17/2024 10:00 AM EDT Office Visit Ophthalmology, [address] [place] [address] oRnny Grewal MD [address] [place] [address] [place] [address] 03/08/2024 8:00 AM EDT Office Visit Ophthalmology, [address] [place] [address] Martell Estrada, DO [address] [facility] [place] [address] 03/08/2024 12:15 PM EDT Office Visit Ophthalmology, [address] [place] [address] Martell Estrada, DO [address] [facility] [place] [address] 03/22/2024 8:30 AM EDT Office Visit Ophthalmology, [address] [place] [address] Martell Estrada, DO [address] [facility] [place] [address] 04/05/2024 9:15 AM EDT Office Visit Ophthalmology, [address] [place] [address] Martell Estrada, DO [address] [facility] [place] [address] 04/05/2024 10:00 AM EDT Office Visit Ophthalmology, [facility] [address] [facility] [place] [address] Martell Estrada, DO [address] [facility] [address] [place] [address] Scheduled Procedures Name Priority Associated Diagnoses Date/Ti [...] Additional history exists COVID-19 Vaccine ( - 2022- season) 2023 Influenza Vaccine (FLU shot) (#1) [...] Not on filedocumented as of this encounter Visit Diagnoses Diagnosis Secondary cataract of left eye- Primary Other secondary cataract of left eye Combined forms of age-related cataract of both eyes- Primary Other and combined forms of senile cataract Left retinal detachment Unspecified retinal detachment Secondary cataract of left eye, unspecified secondary cataract type Portal vein thrombosis HTN, goal below 140/90 Unspecified essential hypertension Nonexudative age-related macular degeneration, bilateral, 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
--- OUTSIDE RECORDS SUMMARY | 2024-03-16 07:10 | External Medical Summary | Summary of Care ---
Author Name Unknown Organization [facility] Address [address] [facility] [place] [address] Phone [phone] Care Team Providers Care Field Service Coordinator Name Role Phone Unavailable Primary Care Provider Unavailabl e Reason for Visit * Reason Comments Other Encounter Details Date Type Department Care Team (Late st Contact Info) Description 02/02/2024 10:00 AM EDT Nurse Only Ophthalmology, [facility] [address] [place] [address] [place] Nurse [facility] [address] [place] [address] Other Allergies Active Allergy Reactions Criticality Noted Date [...] Tablet (Coumadin)Indicati ons:Portal vein thrombosis,Anticoa gulation 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,halfway current use of anticoagulant therapy Take 1 -2 tablets by mouth daily as directed by anticoagulation clinic 180 Tablet 3 3 Active prednisoLONE Acetate 1 % Ophthalmic Suspension (Pred Forte) Instill 1 Drop into the left eye in the morning and 1 Drop at noon and 1 Drop in the evening and 1 Drop before bedtime. 5 mL 4 02/06/20 24 Discontinu ed(Patient preference /discontin uation) Atenolol 25 MG Oral Tablet (Tenormin)Indicati ons:HTN, goal below 140/90 Take 1 Tablet by mouth in the morning. 90 Tablet 4 02/06/20 24 Discontinu ed(Refill) documented as of this encounter (statuses as [...] on file documented as of this encounter Nursing Notes * Renetta Mcdonald COA - 02/02/2024 10:22 AM EDT Measurements obtained by immersion and scanned into the chart documented in this encounter Plan of Treatment Upcoming Encounters Date Type Department Care Team (Latest Contact Info) Description 02/07/2024 2:35 PM EDT Hospital Encounter OR [facility], Operating Room, [facility] - 4th Floor [address] [place] [address] Martell Estrada, 21 [place] [address] 02/07/2024 2:35 PM EDT - 02/07/2024 3:28 PM EDT Surgery OR [facility], Operating Room, [facility] - 4th Floor [address] [place] [address] Martell Estrada DO 21 [place] [address] EXTRACAPSULAR CATARACT REMOVAL COMPLEX WITH IOL 02/08/2024 7:45 AM EDT Office Visit [facility] [address] [place] [address] Martell Estrada DO [address] [place] [address] 02/08/2024 5:30 PM EDT Anticoagulation Pharmacy, [address] [place] [address] [place] [address] 02/17/2024 10:00 AM EDT Office Visit Ophthalmology, [facility] [address] [place] [address] Ronny Grewal MD [address] [place] [address] [place] [address] 03/08/2024 8:00 AM EDT Office Visit Ophthalmology, [facility] [address] [place] [address] Martell Estrada DO [address] [place] [address] 03/08/2024 12:15 PM EDT Office Visit Ophthalmology, [address] [place] [address] Martell Estrada, DO [address] [place] [address] 03/22/2024 8:30 AM EDT Office Visit Ophthalmology, [address] [place] [address] Martell Estrada, DO [address] [place] [address] 04/05/2024 9:15 AM EDT Office Visit Ophthalmology, [address] [place] [address] Martell Estrada, DO [address] [place] [address] 04/05/2024 10:00 AM EDT Office Visit Ophthalmology[address] [place] [address] Martell Estrada, DO [address] [place] [address] Scheduled Procedures Name Priority Associated Diagnoses Date/Ti [...] Not on filedocumented as of this encounter Procedures Procedure Name Priority Date/Time Associated Diagnosis Comments IOL MEASUREMENTS, IMMERSION Routine 02/02/2024 Secondary cataract of left eye, unspecified secondary cataract type documented in this encounter Results * IOL MEASUREMENTS, IMMERSION (02/02/2024) Martell Estrada DO [facility] documented in this encounter Visit Diagnoses Diagnosis Secondary cataract of left eye- Primary Other secondary cataract of left eye Secondary cataract of left eye, unspecified secondary cataract type- Primary Secondary cataract of left eye, unspecified secondary [...]
--- OUTSIDE RECORDS SUMMARY | 2024-03-16 07:10 | External Medical Summary ---
Author Name Unknown Address Unknown Organization [id number]:[facility] [place] [address] [place] [address] Laboratory Report Ordering Provider Test Date Status YOVANI FLORES 02/02/2024 10:29:44 Final Warfarin Therapy
INR: 2 .0-3.0 conventional anticoagulation
INR: 2.5- 3.5 high intensity anticoagulation Observation Date Value Abnormality Reference (Units ) Status PT 02/02/2024 10:29:44 29.0 Above high normal 11 .6-15.2 (seconds) Final INR 02/02/2024 10:29:44 2.7 Above high normal 0. 8-1.2 Final Performing Location LABORATORY [facility] [address] [place] [address]
--- OUTSIDE RECORDS SUMMARY | 2024-03-16 07:10 | External Medical Summary ---
Author Name Unknown Address Unknown Organization [id number]:[facility] - [address] [place] [address] Laboratory Report Ordering Provider Test Date Status OLEKSANDR ISAACS 02/07/2024 14:02:04 Final Warfarin Therapy
INR: 2 .0-3.0 conventional anticoagulation
INR: 2.5- 3.5 high intensity anticoagulation Observation Date Value Abnormality Reference (Units ) Status PT 02/07/2024 14:02:04 26.6 Above high normal 11 .6-15.2 (seconds) Final INR 02/07/2024 14:02:04 2.4 Above high normal 0. 8-1.2 Final Performing Location LABORATORY [facility] - [address] [place] [address]
--- OUTSIDE RECORDS SUMMARY | 2024-03-16 07:10 | External Medical Summary | Summary of Care ---
Author Name Unknown Organization [facility] Address [address] [facility] [place] [address] Phone [phone] Care Team Providers Care Farmworker Poultry Name Role Phone Unavailable Primary Care Provider Unavailabl e Reason for Visit * Reason Comments Other Encounter Details Date Type Department Care Team (Late st Contact Info) Description 02/02/2024 10:00 AM EDT Nurse Only Ophthalmology, [facility] [address] [place] [address] [place] Nurse [facility] [address] [place] [address] Other Allergies Active Allergy Reactions Criticality Noted Date Comments Salicylates Low 09/06/2006 Asprin - hives Bee Stings Hives Low 05/11/2010 Oxycodone Other (Please comment) Medium 09/07/2023 Hallucinations Penicillins Anaphylaxis High 09/06/2006 documented as of this encounter (statuses as of 02/02/2024) Medications Medication Sig Dispensed Refills Start Date End Date Status DAILY MULTIVITAMIN PO TABS 1 tab daily Active Warfarin Sodium 1 MG Oral Tablet (Coumadin)Indicati ons:Portal vein thrombosis,Anticoa gulation 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,[facility] current use of anticoagulant therapy Take 1 [...] as of this encounter (statuses as of 02/02/2024) Active Problems Problem Noted Date Diagnosed Date [...] as of this encounter (statuses as of 02/02/2024) Resolved Problems Problem Noted Date Diagnosed Date Resolved Date Hepatic cirrhosis 04/09/2009 10/28/2022 General medical exam 12/18/2008 009 Urinary tract infection 10/14/200807/2008 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 1 Overview: ICD-10 update of inactive term documented as of this encounter (statuses as of 02/02/2024) Immunizations Name Administration Dates Next Due Diptheria/Tetanus [...] Department Care Team (Latest Contact Info) Description 02/02/2024 5:30 PM EDT Anticoagulation Pharmacy, [address] [place] [address] [place] [address] 02/07/2024 2:35 PM EDT Hospital Encounter OR [facility], Operating Room, [facility] - 4th Floor [address] [place] [address] Martell Estrada DO [address] [place] [address] 02/07/2024 2:35 PM EDT - 02/07/2024 3:28 PM EDT Surgery OR [facility], Operating Room, [facility] - 4th Floor [address] [place] [address] Martell Estrada DO [address] [place] [address] EXTRACAPSULAR CATARACT REMOVAL COMPLEX WITH IOL 02/08/2024 7:45 AM EDT Office Visit [facility]ad[facility] [place] [address] [place] [address] Martell Estrada DO [address] [place] [address] 02/17/2024 10:00 AM EDT Office Visit Ophthalmology, [facility] 132 [facility] [place] [address] Ronny Grewal MD [address] [place] [address] [place] [address] 03/08/2024 8:00 AM EDT Office Visit Ophthalmology, [facility] 132 [facility] [place] [address] Martell Estrada DO [address] [place] [address] 03/08/2024 12:15 PM EDT Office Visit Ophthalmology, [address], [place] [address] Martell Estrada, DO [address] [place] [address] 03/22/2024 8:30 AM EDT Office [address]mology, [address] [address] Martell Estrada, DO [address] [place] [address] 04/05/2024 9:15 AM EDT Office Visit Ophthalmology, [address] [place] [address] Martell Estrada, DO [address] [place] [address] 04/05/2024 10:00 AM EDT Office Visit Ophthalmology[address] [place] [address] Martell Estrada, DO [address] [place] [address] Scheduled Orders Name Type Priority Associated Diagnoses Orde r Schedule IOL MEASUREMENTS, IMMERSION Procedures Routine Secondary cataract of left eye, unspecified secondary cataract type Ordered: 02/02/2024 Scheduled Procedures Name Priority Associated Diagnoses Date/Ti [...] Diagnosis Secondary cataract of left eye- Primary Secondary cataract of left eye, unspecified [...]
--- OUTSIDE RECORDS SUMMARY | 2024-03-16 07:10 | External Medical Summary | Summary of Care ---
Author Name Unknown Organization [facility] Address [address] [facility] [place] [address] Phone [phone] Care Team Providers Care Informaticist Name Role Phone Keegan Felipe MD Primary Care Provide r Reason for Visit * Auth/Cert Specialty Diagnoses / Procedures Referred By Contkate t Referred To Contact Diagnoses Secondary cataract of left eye, unspecified secondary cataract type Secondary cataract of left eye, unspecified secondary cataract type [H26.40] Procedures CATARACT SURGERY,COMPLEX EXTRACAPSULAR CATARACT REMOVAL COMPLEX WITH IOL Martell Estrada DO [address] [place] [address] [address] [facility] [address] [facility] [address] Referral ID Status Reason Start Date Expiration Date Visits Re quested Visits Authorized [id number] Encounter Details Date Type Department Care Team (Late st Contact Info) Description 02/07/2024 1:29 PM EDT - 02/07/2024 4:45 PM EDT Hospital Encounter OR [facility], Operating Room, [facility] - 4th Floor [address] [facility] [place] [address] Martell Estrada DO [address] [address] Discharge Disposition: Home - Self Care Allergies [...] Tablet (Coumadin)Indicati ons:Portal vein thrombosis,Anticoa gulation 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,FCI current use of anticoagulant therapy Take 1 -2 tablets by mouth daily as directed by anticoagulation clinic 180 Tablet 3 3 Active Atenolol 25 MG Oral Tablet (Tenormin)Indicati ons:HTN, goal below 140/90 Take 1 Tablet by mouth in the morning. 90 Tablet 1 4 Active prednisoLONE Acetate 1 % Ophthalmic [...] Sign Reading Time Taken Comments Blood Pressure 118/66 02/07/2024 4:27 PM EDT Pulse 56 02/07/2024 4:27 PM EDT Temperature 35.8 C (96.4 F) 02/07/2024 4:27 PM ED T Respiratory Rate 20 02/07/2024 4:27 PM EDT Oxygen Saturation 96% 02/07/2024 4:27 PM EDT Inhaled Oxygen Concentration - - Weight 93.9 kg (207 lb) 02/07/2024 1:53 PM EDT Height 162.6 cm (5' 4") 02/07/2024 1:53 PM EDT Body Mass Index 35.53 02/07/2024 1:53 PM EDT documented in this encounter Discharge Instructions * Discharge Instr - AVS* Martell Estrada DO - 02/07/2024 3:51 PM EDT Discharge Date: 02/07/24 Check your Patient Education Brochure for further information. If you have any further questions orconcerns after discharge and before 4:00 p.m. please contact your surgeons office at [phone]. This is our office phone number. After 4:00 p.m. or on the weekend, please call our on-call phone number at [phone]. Ask for the swing manager semiconductor wafers marker. Please let the doctor on-call know you had surgery with Dr. Estrada. The on-call doctor will get in touch with Dr. Estrada on your behalf. Go to the Emergency Room if you feel the situation is an emergency. If you present to another facility's emergency room, please call and inform your surgeon's office at the phone number provided above. The information below provides you with the instructions and the list of medications you need to betaking following discharge from the hospital. If you have any questions, please ask before leaving.Please carry this letter with you when you see your doctor in the clinic. If you have questions, you can reach us at the numbers above. Diet: Start with clear liquids (jello, tea, apple juice), avoid dairy products (milk, cheese, pudding, ice cream) and fried, greasy foods. Progress to prescribed diet as tolerated. If nausea should occur, have clear liquids only until soft foods can be tolerated. Activity: A responsible adult must be with the patient for 24 hours after surgery. Rest today and tomorrow, and then increase activity as tolerated. DO NOT drive, operate any appliances and/or machinery or sign legal documents for 24 hours. DO NOT touch or rub the operative eye. Keep eye patch and shield in place. It will be removed in the office. Eye Drops: None today Pain Contol: Tylenol extra-strength 1 tablet every 4 hours as needed for pain. Warnings: Call your surgeon promptly in case of: A. Pain that is not relieved by the medicine you were told to take (surface irritation and burning is common and not a concern) B. Swelling or pus-like drainage C. Persistent nausea and vomiting D. Other Questions or concerns Special Instructions: A. Do not lift heavy objects or bend until appointment tomorrow. Other Instructions: A. Please Bring the blue bag with both eyedrops with you to post-op visit tomorrow. documented in this encounter Progress Notes * Martell Estrada DO - 02/07/2024 3:51 PM EDT [facility] [address] OUTPATIENT SURGERY DISCHARGE SUMMARY NOTE Name: Ann Portillo Location: [facility] Date: 02/07/2024 Time: 3:51 PM Surgery Date: 02/07/2024 Procedure: EXTRACAPSULAR CATARACT REMOVAL COMPLEX WITH IOL Left Surgeon: Martell Estrada DO Discharge Diagnosis: same After examination of this patient, I have determined she is ready for discharge to home when the patient meets criteria. Discharge instructions were given to the patient. documented in this encounter H&P Notes * Martell Estrada DO - 02/07/2024 2:36 PM EDT HISTORY & PHYSICAL INTERVAL NOTE [address] [address] History and Physical Update: Name: Ann Portillo Location: [facility] Date: 02/07/2024 Time: 2:36 PM DATE OF HISTORY AND PHYSICAL: 02/06/24 BP: 146 mmHg/82 mmHg (02/07/24 1353) Pulse: 56 (02/07/24 1353) Resp: 18 (02/07/24 1353) Temp: 36 C (02/07/24 1353) Temp Summary: Temp Min: 36 C (96.8 F) Max: 36 C (96.8 F) SpO2: 97 % (02/07/24 1353) O2 flow rate: Supplemental O2 Delivery: Room Air, None (02/07/24 1353) Heart Exam: regular rate and rhythm Lung Exam: clear to auscultation bilaterally Other Pertinent Physical Exam: no eye changes I have reviewed the H&P previously performed and examined the patient today. There are no new findings noted. * Martell Estrada DO - 02/06/2024 11:08 AM EDT Luis Alberto Vargas MD at 02/06/24 1044 Status: Signed Expand All Collapse All[]Expand All by Default Ann is here for preop for cataract [...] than those noted in HPI. Not Vaxxed Problem List Patient Active Problem List Diagnosis HTN, goal [...] Secondary cataract of left eye Past Medical History Past Medical History: Diagnosis Date Acquired hemolytic [...] 10/13/2021 TSH 5.67, T4 1.3 Past Surgical History Past Surgical History: Procedure Laterality Date ANESTH, UPPER GI ENDOSCOPIC PROCS 05/13/2010 ANESTHESIA FOR UPPER GI ENDOSCOPIC PROCEDURES (ERCP OR UPPER GI) performed by MARIANGEL RAMACHANDRAN at ENDOSCOPY [facility] BREAST SURGERY PROCEDURE NEC left, benign COLONOSCOPY W/ LESION REMOVAL, SNARE 01/24/08 villous polyp--repeat 1 year COLONOSCOPY, DIAGNOSTIC (RECTUM) 12/02/2011 COLONOSCOPY FLEXIBLE PROXIMAL DIAGNOSTIC performed by JOSE ANGEL JEFFREY at ENDOSCOPY [facility] COLORECTAL CANCER SCREEN; COLON 01/14/09 repeat in 3 yrs EGD, FLEXIBLE, DIAGNOSTIC 10/22/08 2 shallow healing pre-pyloric ulcers, bx show no h. pylori EGD, FLEXIBLE, DIAGNOSTIC 04/06/2010 done mild portal gastropathy REPEAT IN 2 YEARS EGD, FLEXIBLE, DIAGNOSTIC 03/22/2013 UPPER GI ENDOSCOPY DIAGNOSTIC performed by Jose Angel Jeffrey MD at ENDOSCOPY [facility] EGD, FLEXIBLE, W/BIOPSY 01/24/08 H.Pylori REPAIR DETACHED RETINA, VITRECTOMY Left 09/07/2023 REPAIR RETINAL DETACHMENT WITH VITRECTOMY performed by Ronny Grewal MD at OR [facility] REPAIR DETACHED RETINA, VITRECTOMY Left 10/20/2023 LEFT REPAIR RETINAL DETACHMENT WITH VITRECTOMY performed by Ronny Grewal MD at OR [facility] RIGHT HEART CATHETERIZATION 01/17/09 RIGHT HEART CATH performed by JALEN LAKE at [facility]ARD[facility] TOTAL ABD HYSTERECTOMY W/WO REMOVAL OF TUBE(S) 1999 due to endometrious Allergies Review of patient's allergies indicates: Allergen Reactions Penicillins Anaphylaxis Oxycodone Other (Please comment) Hallucinations Asa [Salicylates] Asprin - hives Bee Stings Hives Social History Socioeconomic History Marital status: Spouse name: Emeka Number of children: 2 Years of education: 12 Highest education level: Not on file 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 History 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 Laterality confirmed as Left Surgery date at time of Pre-Surgery Center Encounter: 02/07/2024. What procedure is patient having? EXTRACAPSULAR CATARACT REMOVAL COMPLEX WITH IOL ([address]) In an emergency, is patient willing to accept blood products or blood transfusion? Unknown. Do you need to place a blood bank order? No Anesthesia consent pool notified? N/A Anesthesia evaluation requested per case documentation? No Preop Evaluation Requested? No PATIENT EDUCATION SCREENING Person taught: Patient Motivation Level: Asks Questions and Eager to Learn Language Barrier: No Physical Barrier: N/A METHOD: Lecture-telephone interview Patient Preferred Learning Methods: Lecture-Telephone interview Health History interview completed, questions answered, and the following patient instructions provided via telephone interview: Preoperative bathing instructions General preoperative instructions Medication instructions NPO instructions - If your normal morning routine take Atenolol the morning of surgery. If you take metformin, hold it the evening before surgery as well. No tobacco products after midnight. Pt follows w/ the [facility] for her Coumadin. OUTCOME: State / Describe / Explain and Needs Reinforcement documented in this encounter OR Notes * OR Surgeon - Martell Estrada DO - 02/07/2024 3:51 PM EDT [facility] [address] OPERATIVE REPORT Name: Ann Portillo Date: 02/07/2024 Time: 3:53 PM Service: Ophthalmology Date of Operation: 02/07/2024 Pre-op Diagnosis: Cortical age related Cataract Left eye Post-op Diagnosis: Cortical age related Complex Cataract Left eye Surgeon: Martell Estrada DO Assistants: None Anesthesia: Monitored Local Anesthesia with Sedation + retrobulbar block Operation: Cataract extraction to the Left eye with implantation of posterior intraocular lens. Case considered complex due to need of iris manipulation device to aid in pupillary dilation. Findings: None Estimated Blood Loss: minimal IV Intake:<100 ml Urine output: 0 ml Drains: 0 INDICATIONS AND PERTINENT HISTORY: The patient has a visually significant cataract of the Left eye.The proposed procedure was discussed in detail with the patient. All feasible options were reviewedwith the appropriate indications and expected outcomes. Specimens and Disposition: None Complications: none Condition: Stable Description of Operation: The patient was identified with two identifiers and the procedure verified. Proper consent was verified. Antibiotic and dilating drops were instilled in the Left eye pre-operatively in the Pre-operative holding area. Fifteen minutes prior to transfer to the Operating Room, topical proparacaine drops and topical 2% lidocaine jelly were placed over the Left eye. The patient was then taken back to the Operating Room. A retrobulbar block of 5mL was delivered into the retrobulbar space without complication. Ophthalmic Betadine 5% was placed in the superior and inferior cul-de-sacs of the Left eye.The Left eye was then prepped with 10% povidone-iodine and draped in the usual sterile fashion. After the lid speculum was inserted, a paracentesis incision was made at the 5 and 12 o'clock position with a sharp blade. MPF lidocaine was instilled. Using a spatula, posterior synechiae were lysed to create 360 degrees of freedom. Trypan blue was instilled to create an initial anterior capsular stain. This was washed with MPF lidocaine. This pupil was about 4mm in size at this time. The anterior ch dayna was then refilled with Viscoat. The main wound was then created at 3' using the 2.4mm phacokeratome blade. Due to poor dilation, a Malyugan ring, 6.25mm in size was inserted into the anterior chamber and put into place with the manipulator. The I/A was used to remove viscoelastic. Additional trypan blue dye was painted onto the anterior capsule. Additional viscoelastic was instilled into the anterior chamber. Using a sharp 27G needle tip, the anterior capsule was punctured and simultaneous withdrawal of the syringe was performed. It appeared there was intumenscence to the cataract. The rhexis was then completed with Utrada forceps. No hydrodissection was needed, the nucleus was free. The phacoemulsification handpiece was utilized to remove the lens nucleus with a [id number] technique. Residual cortical material was removed with the irrigating and aspirating device. The capsular bag was re-formed with viscoelastic. An CCA0T0 20.0 diopters in power (selected after review and interpretation of IOL measurements), acrylic foldable lens was placed into the capsular bag uneventfully and rotated into position with a Sinskey hook. It was noted to be in a central and stable position. The Malyugin ring was removed. The residual viscoelastic was irrigated and aspirated from the anterior chamber. Stromal hydration was applied to the wound. The anterior chamber was re-formed with balanced salt solution. A 10-0 nylon suture was placed, the knot rotated and buried. The wounds were checked with Weck-cels and found to be watertight. Subconjunctival gentamicin and dexamethasonewere delivered superior. The lid speculum was then removed. Brimonidine drops and erythromycin oph ointment were instilled in the eye. A patch and shield was placed. The patient tolerated the procedure well. There were no complications I performed the procedure Martell Estrada DO 02/07/2024 3:53 PM documented in this encounter Plan of Treatment Upcoming Encounters Date Type Department Care Team (Late st Contact Info) Description 02/08/2024 7:45 AM EDT Office Visit Ophthalmology, [facility] [address] [address] Martell Estrada DO [place] [address] 02/08/2024 5:30 PM EDT Anticoagulation Pharmacy, [address] [place] [address] [place] [address] 02/17/2024 10:00 AM EDT Office Visit Ophthalmology, [facility] [address] [facility] [place] [address] Ronny Grewal MD [address] [facility] [address] [place] [address] 03/08/2024 12:15 PM EDT Office Visit Ophthalmology, [facility] [address] [facility] [place] [address] Martell Estrada DO [address] [place] [address] Health Maintenance Due Date Last Done Comments [...] this encounter Medical Devices Implanted Type Area Boiler Or Engine Operator Device Identifier Shelf Expiration Date Model / Serial / Lot [place] Iol Aspheric Uv Absorbing Iol Implanted:Qty: 1 on 02/07/2024 by Martell Estrada DO at OR [facility] Left: Eye 04/18/2027 CCA0T0 / [id number] / N/A Description:lexi uv iol +20.0d reference # [id number] documented as of this encounter Procedures Procedure Name Priority Date/Time Associated Diagnosis Comments PT INR STAT 02/07/2024 2:02 PM EDT documented in this encounter Results * (ABNORMAL) PT INR (02/07/2024 2:02 PM EDT) Prothrombin Time 26.6(H) 11.6 - 15.2 seconds 02/07/2024 3:09 PM EDT LABORATORY [facility] INR 2.4(H) 0.8 - 1.2 02/07/2024 3:09 PM EDT LABORATORY [facility] Blood Venous blood specimen / Unknown Venipuncture / Unknown 02/07/2024 2:02 PM EDT 02/07/2024 2:04 PM EDT Narrative LABORATORY GL - 02/07/2024 3:09 PM EDT Warfarin Therapy INR: 2.0-3.0 conventional anticoagulation INR: 2.5-3.5 high intensity anticoagulation Martell Estrada DO LAB BLOOD ORDERABLES Performing Organization Address City/State/[facility] Co de Phone Number LABORATORY [address] [address] documented in this encounter Visit Diagnoses Diagnosis Secondary cataract of left eye- Primary Other secondary cataract of left eye After cataract not obscuring vision, left- Primary documented in this encounter Administered Medications Inactive Administered Medications - up to 3 most recent administrations Medication Order MAR Action Action Date Dose Rate Site isolyte-S pH 7.4 infusion Intravenous, at 10 mL/hr, Plasma-LYTE 148, isolyte-S, and isolyte-S pH 7.4 are considered equivalent - including for MAR barcode scanning., CONTINUOUS, Starting on Tue02/07/24 at 1415, Until Tue02/07/24 at 2045, Pre-Op Restarted 02/07/2024 3:00 PM EDT Continue from Pre-Op 02/07/2024 2:51 PM EDT 10 mL/hr New Bag 02/07/2024 2:29 PM EDT 10 mL/hr Lidocaine urethral/mucosal 2 % gel 2 mL Topical, ONCE, 1 dose, On Tue02/07/24 at 1415, 15 minutes prior to scheduled surgery time, apply 2 ml to superior and inferior fornices left eye & tape eyes shut., Pre-Op Given 02/07/2024 2:26 PM EDT 2 mL Ofloxacin (Ocuflox) 0.3 % ophthalmic solution 1 Drop 1 Drop, Left eye, Q5 MINUTES, First dose on Tue02/07/24 at 1415, Last dose on Tue02/07/24 at 1425, For 3 doses, PRE-OP: One drop to left eye every 5 minutes for 3 doses, Pre-Op Given 02/07/2024 2:26 PM EDT 1 Drop Given 02/07/2024 2:16 PM EDT 1 Drop Given 02/07/2024 2:07 PM EDT 1 Drop prednisoLONE Acetate (Pred Forte) 1 % ophthalmic suspension 1 Drop 1 Drop, Left eye, Q5 MINUTES, First dose on Tue02/07/24 at 1415, Last dose on Tue02/07/24 at 1425, For 3 doses, PRE-OP: One drop to left eye every 5 minutes for 3 doses., Pre-Op Given 02/07/2024 2:2 6 PM EDT 1 Drop Given 02/07/2024 2:17 PM EDT 1 Drop Given 02/07/2024 2:07 PM EDT 1 Drop proparacaine (Alcaine) 0.5 % ophthalmic solution 1 Drop 1 Drop, Left eye, ONCE, On Tue02/07/24 at 1415, For 1 dose, PRE-OP: 15 minutes prior to scheduled surgery time for 1 dose, Pre-Op Given 02/07/2024 2:08 PM EDT 1 Drop RETROBULBAR MIX 10 mL (lidocaine/bupivacaine/hyaluronidas e) 10 mL, Ophthalmic, ONCE, On Tue02/07/24 at 1515, For 1 dose, +++ SDS for Tuesday 02/06 +++ FOR RETROBULBAR INJECTION BY GIS MAPPING TECHNICIAN, Pre-Op Given By 02/07/2024 3:15 PM EDT 6 mL Eye Left documented in this encounter Active and Recently Administered Medications Times are shown in EDT. Scheduled Medication Order 02/05/2024 02/06/2024 02/07/2024 gentamicin inj 20 mg 20 mg, Intraocular, ONCE, On Tue02/07/24 at 1515, For 1 dose, +++ SDS for Tuesday 02/06 +++ 1515 (Due) Lidocaine urethral/mucosal 2 % gel 2 mL (COMPLETED) Topical, ONCE, 1 dose, On Tue02/07/24 at 1415, 15 minutes prior to scheduled surgery time, apply 2 ml to superior and inferior fornices left eye & tape eyes shut., Pre-Op 1426 (Given - Provid er: Elaina Dykse RN) Ofloxacin (Ocuflox) 0.3 % ophthalmic solution 1 Drop (COMPLETED) 1 Drop, Left eye, Q5 MINUTES, First dose on Tue02/07/24 at 1415, Last dose on Tue02/07/24 at 1425, For 3 doses, PRE-OP: One drop to left eye every 5 minutes for 3 doses, Pre-Op 1407 (Given - Provid er: Elaina Dykes RN)1416 (Given - Provider: Elaina Dykes RN)1426 (Given - Provider: Elaina Dykes RN) prednisoLONE Acetate (Pred Forte) 1 % ophthalmic suspension 1 Drop (COMPLETED) 1 Drop, Left eye, Q5 MINUTES, First dose on Tue02/07/24 at 1415, Last dose on Tue02/07/24 at 1425, For 3 doses, PRE-OP: One drop to left eye every 5 minutes for 3 doses., Pre-Op 1407 (Given - Provid er: Elaina Dykes RN)1417 (Given - Provider: Elaina Dykes RN)1426 (Given - Provider: Elaina Dykes RN) proparacaine (Alcaine) 0.5 % ophthalmic solution 1 Drop (COMPLETED) 1 Drop, Left eye, ONCE, On Tue02/07/24 at 1415, For 1 dose, PRE-OP: 15 minutes prior to scheduled surgery time for 1 dose, Pre-Op 1408 (Given - Provid er: Elaina Dykes RN) RETROBULBAR MIX 10 mL (lidocaine/bupivacaine/hyaluroni dase) (COMPLETED) 10 mL, Ophthalmic, ONCE, On Tue02/07/24 at 1515, For 1 dose, +++ SDS for Tuesday 02/06 +++ FOR RETROBULBAR INJECTION BY GIS MAPPING TECHNICIAN, Pre-Op 1515 (Given By - Pro vider: Carmela Blank RN - Comment: Dr. Sean adame) Continuous Medication Order 02/05/2024 02/06/2024 02/07/2024 isolyte-S pH 7.4 infusion Intravenous, at 10 mL/hr, Plasma-LYTE 148, isolyte-S, and isolyte-S pH 7.4 are considered equivalent - including for MAR barcode scanning., CONTINUOUS, Starting on Tue02/07/24 at 1415, Until Tue02/07/24 at 2045, Pre-Op 1429 (New Bag - Prov ider: Elaina Dykes RN)1451 (Continue from Pre-Op - Provider: Luli Shin CRNA)1459 (Paused - Provider: Luli Shin CRNA - Comment: Switch to gravity)1500 (Restarted - Provider: Luli Shin CRNA)1505 (Anes Intra-Op Fluid - Provider: Luli Shin CRNA)1558 (Anes Intra-Op Fluid - Provider: Goldy Alonso CRNA) PRN Medication Order 02/05/2024 02/06/2024 02/07/2024 balanced salt solution (Bss) ophthalmic solution (CANCELED) ONCE PRN INTRA PROCEDURE, Starting on Tue02/07/24 at 1519, Until Tue02/07/24 at 1551, Intra-Op 1519 (Given - Provid er: Martell Estrada DO) briMONidine tartrate (Alphagan) 0.2 % ophthalmic solution (CANCELED) ONCE PRN INTRA PROCEDURE, Starting on Tue02/07/24 at 1523, Until Tue02/07/24 at 1551, Intra-Op 1523 (Given - Provid er: Martell Estrada DO) dexAMETHasone Sodium Phosphate 2 mg, gentamicin 20 mg inj (CANCELED) ONCE PRN INTRA PROCEDURE, Starting on Tue02/07/24 at 1511, Until Tue02/07/24 at 1551, Intra-Op 1511 (Given - Provid er: Martell Estrada DO) DUOVISC inj KIT (CANCELED) ONCE PRN INTRA PROCEDURE, Starting on e 02/07/24 at 1523, Until 02/07/24 at 1551, Intra-Op 1523 (Given - Provid er: Martell Estrada DO) EPINEPHrine 0.5 mg in balanced salt solution 500 mL inj (CANCELED) ONCE PRN INTRA PROCEDURE, Starting on e 02/07/24 at 1517, Until Tu02/07/24 at 1551, Intra-Op 1545 (Given - Provid er: Martell Estrada DO) Erythromycin ophthalmic ointment (CANCELED) ONCE PRN INTRA PROCEDURE, Starting on Tue02/07/24 at 1524, Until 02/07/24 at 1551, Intra-Op 1524 (Given - Provid er: Martell Estrada DO) hydroxypropyl methylcellulose (Ocucoat) 2 % intraocular inj (CANCELED) ONCE PRN INTRA PROCEDURE, Starting on Tue02/07/24 at 1524, Until 02/07/24 at 1551, Intra-Op 1524 (Given - Provid er: Martell Estrada DO) Lidocaine 1 % (PF) inj (CANCELED) ONCE PRN INTRA PROCEDURE, Starting on Tue02/07/24 at 1512, Until Tu02/07/24 at 1551, Intra-Op 1512 (Given - Provid er: Martell Estrada DO) Ofloxacin (Ocuflox) 0.3 % ophthalmic solution (CANCELED) ONCE PRN INTRA PROCEDURE, Starting on Tue02/07/24 at 1525, Until Tu02/07/24 at 1551, Intra-Op 1525 (Given - Provid er: Martell Estrada DO) Povidone-Iodine (Betadine) 5 % 2 mL syringe ophthalmic solution (CANCELED) ONCE PRN INTRA PROCEDURE, Starting on Tue02/07/24 at 1508, Until 02/07/24 at 1551, Intra-Op 1508 (Given - Provid er: Carmela Blank RN) prednisoLONE Acetate (Pred Forte) 1 % ophthalmic suspension (CANCELED) ONCE PRN INTRA PROCEDURE, Starting on Tue02/07/24 at 1545, Until Tu02/07/24 at 1600, Intra-Op 1545 (Given - Provid er: Martell Estrada DO) Tetracaine (Pontocaine) 0.5 % ophthalmic solution (CANCELED) ONCE PRN INTRA PROCEDURE, Starting on Tue02/07/24 at 1508, Until Tue02/07/24 at 1551, Intra-Op 1508 (Given - Provid er: Martell Estrada DO) Trypan blue (Vision Blue) 0.06% ophthalmic solution (CANCELED) ONCE PRN INTRA PROCEDURE, Starting on Tue02/07/24 at 1525, Until Tue02/07/24 at 1551, Intra-Op 1525 (Given - Provid er: Martell Estrada DO) documented in this encounter Advance Directives * [...] with: Not Discussed due to patient's condition Care Teams Informaticist Relationship Specialty Start Date End Date Keegan Felipe MD [address] [place] [address] [place] [address] PCP - General Family Medicine 02/07/24 documented as of this encounter
--- OUTSIDE RECORDS SUMMARY | 2024-03-16 07:10 | External Medical Summary | Summary of Care ---
Author Name Unknown Organization [facility] Address [address] [facility] [place] [address] Phone [phone] Care Team Providers Care Automotive Maintenance Technician Name Role Phone Unavailable Primary Care Provider Unavailabl e Reason for Visit * Reason Comments Post Op Cataract Surgery 1 day OS Encounter Details Date Type Department Care Team (Late st Contact Info) Description 02/08/2024 7:45 AM EDT Office Visit OphthalmologyJadiel 21 [place] [address] Martell Estrada DO 21 [facility] [place] [address] After cataract not obscuring vision, left* Allergies [...] Tablet (Coumadin)Indicati ons:Portal vein thrombosis,Anticoa gulation 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,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 Advised of construction skills teacher coverage for after hours/weekend emergencies. RTC 1 [...] used, eye was patched. Pred Forte and [id number] 4 times daily in surgical eye Did you wear eye shield to bed, slept on unaffected side and avoid bending over and heavy lifting? Yes Va will be found in the ophth exam documented in this encounter Plan of Treatment Upcoming Encounters Date Type Department Care Team (Late st Contact Info) Description 02/08/2024 5:30 PM EDT Anticoagulation Pharmacy, [address] [place] [address] [place] [address] 02/17/2024 10:00 AM EDT Office Visit Ophthalmology, [address] [place] [address] Ronny Grewal MD [address] [place] [address] 03/08/2024 12:15 PM EDT Office Visit Ophthalmology, [facility] [address] [place] [address] Martell Estrada, DO [address] [place] [address] Health Maintenance Due Date Last Done Comments [...] this encounter Medical Devices Implanted Type Area Music Store Manager Device Identifier Shelf Expiration Date Model / Serial / Lot Clareon Iol Aspheric Uv Absorbing Iol Implanted:Qty: 1 on 02/07/2024 by Martell Estrada DO at OR [facility] Left: Eye 04/18/2027 [id number] / [id number] / N/A Description:lexi uv iol +20.0d [...]
--- OUTSIDE RECORDS SUMMARY | 2024-03-16 07:10 | External Medical Summary | Summary of Care ---
Author Name Unknown Organization [facility] Address [address] [facility] [place] [address] Phone [phone] Care Team Providers Care Machine I Cutter Name Role Phone Unavailable Primary Care Provider Unavailabl e Reason for Visit * Reason Comments Appointment Dosage Adjustment Via Phone (anticoag Cl inic) Encounter Details Date Type Department Care Team (Latest Contact Info) Description 02/01/2024 5:30 PM EDT Anticoagulation Pharmacy, [address] [place] [address] [place] [address] Portal vein thrombosis* Allergies Active Allergy Reactions Criticality Noted Date Comments Salicylates Low 09/06/2006 Asprin - hives Bee Stings Hives Low 05/11/2010 Oxycodone Other (Please comment) Medium 09/07/2023 Hallucinations Penicillins Anaphylaxis High 09/06/2006 documented as of this encounter (statuses as of 02/01/2024) Medications Medication Sig Dispensed Refills Start Date End Date Status DAILY MULTIVITAMIN PO TABS 1 tab daily Active Warfarin Sodium 1 MG Oral Tablet (Coumadin)Indicati ons:Portal vein thrombosis,Anticoa gulation 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,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 Take 1 [...] as of this encounter (statuses as of 02/01/2024) Active Problems Problem Noted Date Diagnosed Date [...] as of this encounter (statuses as of 02/01/2024) Resolved Problems Problem Noted Date Diagnosed Date Resolved Date Hepatic cirrhosis 04/09/2009 10/28/2022 General medical exam 12/18/2008 009 Urinary tract infection 10/14/200807/2008 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 Agreeable to have INR drawn at tomorrow after appointment. Will continue to use GML in the future once INR is stabilized. Amanda Kim [facility], PharmD Clinical Pharmacist - Powder Compounder Medication Therapy Disease Management Clinic 02/01/2024, 12:58 PM Ph.[phone] * Gwendolyn Mcneil PHARM Tech - 02/01/2024 10:43 AM EDT Caller's name: Ann Preferred call back number(OFFICE NUMBER FOR ): [phone] Reason for call: Pt calling to let the [facility] know that GML cx'd and rescheduled for Tuesday, she is asking if she is okay to wait that long to get her INR checked. Please return her call. Thank you, Gwendolyn Mcneil Behavioral Modification Assistant Centralized Clinical Pharmacy Services 02/01/2024,10:43 AM documented in this encounter Plan of Treatment Upcoming Encounters Date Type Department Care Team (Late st Contact Info) Description 02/02/2024 10:00 AM EDT [facility] 132 [facility] [place] [address] Se[place]ou Nurse Monty Gillespies 132 [facility] [place] [address] 02/02/2024 5:30 PM EDT Anticoagulation Pharmacy, [address] [place] [address] [place] [address] 02/07/2024 Hospital Encounter OR [facility], Operating Room, [facility] - 4th Floor [address] [facility] [place] [address] Martell Estrada, DO [facility] [place] [address] 02/08/2024 7:45 AM EDT Office Visit OphthalmologyJadiel [address] [place] [address] Martell Estrada, [address] [place] [address] 03/08/2024 8:00 AM EDT Office Visit Ophthalmology, [address] [place] [address] Martell Estrdaa, DO [address] [place] [address] 03/22/2024 8:30 AM EDT Office Visit Ophthalmology, [address] [address] Martell Estrada, 21 [place] [address] 04/05/2024 9:15 AM EDT Office Visit Ophthalmology, [address] [place] [address] Martell Estrada, [address] [place] [address] 04/05/2024 10:00 AM EDT Office Visit Ophthalmology, [address] [place] [address] Martell Estrada, 21 [place] [address] Scheduled Procedures Name Priority Associated Diagnoses Date/Ti me EXTRACAPSULAR CATARACT REMOV AL COMPLEX WITH IOL Secondary cataract of left eye, unspecified secondary cataract type Health Maintenance Due Date Last Done Comments [...] Visit Diagnoses Diagnosis Portal vein thrombosis- Primary Secondary cataract of left eye- Primary documented in this [...]
--- OUTSIDE RECORDS SUMMARY | 2024-03-16 07:10 | External Medical Summary | Summary of Care ---
Author Name Unknown Organization [facility] Address [address] [facility] [place] [address] Phone [phone] Care Team Providers Care Government Relations Analyst Name Role Phone Unavailable Primary Care Provider Unavailabl e Encounter Details Date Type Department Care Team (Late st Contact Info) Description 02/03/2024 Telephone Family Medicine [address] [place] [address] Luis Alberto Vargas MD [address] [place] [address] [place] [address] Allergies Active Allergy Reactions Criticality Noted Date [...] 02/07/2024 2:35 PM EDT Hospital Encounter OR [facility], Operating Room, [facility] - 4th Floor [address] [place] [address] Martell Estrada, 21 [place] [address] 02/07/2024 2:35 PM EDT - 02/07/2024 3:28 PM EDT Surgery OR [facility], Operating Room, [facility] - 4th Floor 400 [place] [address] Martell Estrada DO 21 [place] [address] EXTRACAPSULAR CATARACT REMOVAL COMPLEX WITH IOL 02/08/2024 7:45 AM EDT Office Visit OphthalmologyJadiel 21 [place] [address] Martell Estrada DO 21 [place] [address] 02/08/2024 5:30 PM EDT Anticoagulation Pharmacy, [address] [place] [address] [place] [address] 02/17/2024 10:00 AM EDT Office Visit Ophthalmology, [facility] 132 [place] [address] Ronny Grewal MD [address] [place] [address] [place] [address] 03/08/2024 8:00 AM EDT Office Visit Ophthalmology, [facility] 132 [place] [address] Martell Estrada, DO [address] [place] [address] 03/08/2024 12:15 PM EDT Office Visit Ophthalmology, [address] [place] [address] Martell Estrada, DO 21 [place] [address] 03/22/2024 8:30 AM EDT Office Visit Ophthalmology[address] [place] [address] Martell Estrada, DO 21 [place] [address] 04/05/2024 9:15 AM EDT Office Visit Ophthalmology, [address], [place] [address] Martell Estrada, DO 21 [place] [address] 04/05/2024 10:00 AM EDT Office Visit Ophthalmology[address] [place] [address] Martell Estrada, 21 [place] [address] Scheduled Procedures Name Priority Associated Diagnoses Date/Ti [...]
--- OUTSIDE RECORDS SUMMARY | 2024-03-16 07:10 | External Medical Summary | Summary of Care ---
Author Name Unknown Organization [facility] Address [address] [facility] [place] [address] Phone [phone] Care Team Providers Care Pizzamaker Name Role Phone Unavailable Primary Care Provider Unavailabl e Reason for Visit * Reason Comments Other Encounter Details Date Type Department Care Team (Late st Contact Info) Description 02/02/2024 10:00 AM EDT Nurse Only Ophthalmology, [facility] [address] [place] [address] Sekou Nurse [facility] [address] [place] [address] Other Allergies Active Allergy Reactions Criticality Noted [...] 11:00 AM EDT Office Visit Family Medicine [address] [place] [phone] Luis Alberto Vargas MD [address] [place] [address] [place] [address] 02/07/2024 2:35 PM EDT Hospital Encounter OR [facility], Operating Room, [facility] - 4th Floor [address] [place] [address] Martell Estrada, DO 21 [place] [address] 02/07/2024 2:35 PM EDT - 02/07/2024 3:28 PM EDT Surgery OR [facility], Operating Room, [facility] - 4th Floor [address] [place] [address] Martell Estrada, 21 [place] [address] EXTRACAPSULAR CATARACT REMOVAL COMPLEX WITH IOL 02/08/2024 7:45 AM EDT Office Visit Ophthalmology, [place] [address] Martell Estrada, 21 [place] [address] 02/08/2024 5:30 PM EDT Anticoagulation Pharmacy, [address] [place] [address] [place] [address] 02/17/2024 10:00 AM EDT Office Visit Ophthalmology, [facility] 132 [facility] [place] [address] Ronny Grewal MD [address] [place] [address] [place] [address] 03/08/2024 8:00 AM EDT Office Visit Ophthalmology, [address] [place] [address] Martell Estrada, DO [address] [place] [address] 03/08/2024 12:15 PM EDT Office Visit Ophthalmology, [address] [place] [address] Martell Estrada, DO [address] [place] [address] 03/22/2024 8:30 AM EDT Office Visit Ophthalmology, [address] [place] [address] Martell Estrada, DO [address] [place] [address] 04/05/2024 9:15 AM EDT Office Visit Ophthalmology, [address] [place] [address] Martell Estrada, DO [address] [place] [address] 04/05/2024 10:00 AM EDT Office Visit Ophthalmology, [address] [place] [address] Martell Estarda, DO [address] [place] [address] Scheduled Procedures Name Priority Associated Diagnoses Date/Ti [...] 04/11, 10/31/2013, Additional history exists COVID-19 Vaccine (1 - season) 2023 Influenza Vaccine (FLU shot) [...] IMMERSION (02/02/2024) Martell Estrada DO VISION SERVICES [facility] documented in this encounter Visit Diagnoses Diagnosis [...]
--- OUTSIDE RECORDS SUMMARY | 2024-03-16 07:10 | External Medical Summary | Summary of Care ---
Author Name Unknown Organization [facility] Address [address] [facility] [place] [address] Phone [phone] Care Team Providers Care Optical Model Maker And Tester Name Role Phone Unavailable Primary Care Provider Unavailabl e Reason for Visit * Reason Onset Date Comments Medication Refill 02/06/2024 Encounter Details Date Type Department Care Team (Late st Contact Info) Description 02/06/2024 Refill Family Medicine [address] [place] [address] [place] [address] HTN, goal below 140/90 Allergies Active Allergy Reactions Criticality Noted Date [...] the morning. 90 Tablet 1 4 Active Atenolol 25 MG Oral Tablet (Tenormin)Indicati [...] encounter Miscellaneous Notes * Telephone Encounter - Venecia Pemberton RN - 02/06/2024 3:31 PM EDTPending Prescriptions: Disp Refills Atenolol 25 MG Oral Tablet (Tenormin) 90 Tab*1 Sig: Take 1 Tablet by mouth in the morning. * Telephone Encounter - Venecia Pemberton RN - 02/06/2024 3:31 PM EDT please call pt with an appt to establish with a doctor * Telephone Encounter - Jaymie Timmons OSA - 02/06/2024 2:05 PM EDT Did you pend patient's preferred pharmacy and medication before forwarding?yes Pharmacy: [id number] Pending Prescriptions: Disp Refills Atenolol 25 MG Oral Tablet (Tenormin) 90 Tab*0 Sig: Take 1 Tablet by mouth in the morning. Last Visit: 02/06/2024 (in office), 01/20/2024 (telemedicine) Next Visit: Visit date not found If no future appointments scheduled, and last appointment is greater than a year ago, please schedule patient for a follow-up appointment Last date the medication was ordered: 11/07/23 Is this request for a controlled substance?No Urine Drug Screen:No results found. However, due to the size of the patient record, not all encounters were searched. Please check Results Review for a complete set of results. Patient Phone Numbers Labs: Lab Results Component Value Date/Time CREAT 0.8 10/13/2021 09:12 AM CREAT 0.9 04/30/2014 03:38 PM POTASSIUM 4.2 10/13/2021 09:12 AM POTASSIUM 4.2 04/30/2014 03:38 PM TSH 5.67 (H) 10/13/2021 09:12 AM TSH 3.20 10/26/2010 07:13 AM LDLCALC 102 10/13/2021 09:12 AM LDLCALC 73 10/26/2010 07:13 AM ALT 35 10/13/2021 09:12 AM ALT 34 04/30/2014 03:38 PM HGBA1C 5.1 03/25/2010 09:07 AM documented in this encounter Plan of Treatment Upcoming Encounters Date Type Department Care Team (Latest Contact Info) Description 02/07/2024 2:35 PM EDT Hospital Encounter OR [facility], Operating Room, [facility] - 4th Floor 400 [place] [address] Martell Estrada, DO 21 [place] [address] 02/07/2024 2:35 PM EDT - 02/07/2024 3:28 PM EDT Surgery OR [facility], Operating Room, [facility] - 4th Floor 400 [place] [address] Martell Estrada DO 21 [place] [address] EXTRACAPSULAR CATARACT REMOVAL COMPLEX WITH IOL 02/08/2024 7:45 AM EDT Office Visit Ophthalmology, [place] [address] Martell Estrada DO 21 [place] [address] 02/08/2024 5:30 PM EDT Anticoagulation Pharmacy, [address] [place] [address] [place] [address] 02/17/2024 10:00 AM EDT Office Visit Ophthalmology, [facility] 132 [facility] [place] [address] Ronny Grewal MD [address] [place] [address] 03/08/2024 8:00 AM EDT Office Visit Ophthalmology, [facility] 132 [facility] [place] [address] Martell Estrada, DO [address] [place] [address] 03/08/2024 12:15 PM EDT Office Visit Ophthalmology, [address] [place] [address] Martell Estrada, DO [address] [place] [address] 03/22/2024 8:30 AM EDT Office Visit Ophthalmology, [address] [place] [address] Martell Estrada, DO [address] [place] [address] 04/05/2024 9:15 AM EDT Office Visit Ophthalmology, [address] [place] [address] Martell Estrada, DO [address] [place] [address] 04/05/2024 10:00 AM EDT Office Visit Ophthalmology, [address] [place] [address] Martell Estrada, DO [address] [place] [address] Scheduled Procedures Name Priority Associated Diagnoses Date/Ti [...] Primary Other secondary cataract of left eye HTN, goal below 140/90 Unspecified essential hypertension Secondary cataract of left eye, unspecified secondary [...]
--- OUTSIDE RECORDS SUMMARY | 2024-03-16 07:10 | External Medical Summary | Summary of Care ---
Author Name Unknown Organization [facility], [facility] , [place] Care Team Providers Care Commercial Loan Manager Name Role Phone Unavailable Primary Care Provider Unavailabl e Reason for Visit * Reason Onset Date Comments Procedure 02/03/2024 Encounter Details Date Type Department Care Team (Late st Contact Info) Description 02/03/2024 Telephone Pharmacy, 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 Patient making MTM aware clearance is needed prior to surgery. Scheduled with Dr Moseley on 02/05. Amanda Kim RPh, PharmD Clinical Pharmacist - Carton Making Machine Operator Medication Therapy Disease Management Clinic 02/03/2024, 11:57 AM Ph.[phone] * Telephone Encounter - Gurinder Talbert CPhT - 02/03/2024 11:48 AM EDT Caller's name: Ann Schroeder call back number(OFFICE NUMBER FOR ): [phone] Reason for call: Pt having cataract removal on 02/06, requesting to speak to [facility] for dose dirs Thank you, Gurinder Talbert CPhT Fx Artist [facility] 02/03/2024,11:49 AM documented in this encounter Plan of Treatment Upcoming Encounters Date Type Department Care Team (Latest Contact Info) Description 02/06/2024 11:00 AM EDT Office Visit Family Medicine [address] [place] [address] Luis Alberto Vargas MD [address] [place] [address] [place] [address] 02/07/2024 2:35 PM EDT Hospital Encounter OR [facility], Operating Room, [facility] - 4th Floor 400 [place] [address] Martell Estrada, 84 [place] [address] 02/07/2024 2:35 PM EDT - 02/07/2024 3:28 PM EDT Surgery OR [facility], Operating Room, [facility] - 4th Floor 400 [place] [address] Martell Estrada DO 54 [place] [address] EXTRACAPSULAR CATARACT REMOVAL COMPLEX WITH IOL 02/08/2024 7:45 AM EDT Office Visit OphthalmologyJadiel [address] [place] [address] Martell Estrada, DO 21 [place] [address] 02/08/2024 5:30 PM EDT Anticoagulation [address] [place] [address] [place] [address] 02/17/2024 10:00 AM EDT Office Visit Ophthalmology, [facility] 132 [facility] [place] [address] Ronny Grewal MD [address] [place] [address] [place] [address] 03/08/2024 8:00 AM EDT Office Visit Ophthalmology, [facility] 132 [facility] [place] [address] Martell Estrada, 21 [place] [address] 03/08/2024 12:15 PM EDT Office Visit Ophthalmology [facility] 132 [facility] [place] [address] Martell Estrada, 21 [place] [address] 03/22/2024 8:30 AM EDT Office Visit Ophthalmology, [facility] 132 [facility] [place] [address] Martell Estrada, 21 [place] [address] 04/05/2024 9:15 AM EDT Office Visit Ophthalmology, [facility] 132 [facility] [place] [address] Martell Estrada, 21 [place] [address] 04/05/2024 10:00 AM EDT Office Visit Ophthalmology, [facility] 132 [facility] [place] [address] Martell Estrada, DO 21 [place] [address] Scheduled Procedures Name Priority Associated Diagnoses Date/Ti [...]
--- OUTSIDE RECORDS SUMMARY | 2024-03-16 07:10 | External Medical Summary | Summary of Care ---
Author Name Unknown Organization [facility] Address [address] [facility] [place] [address] Phone [phone] Care Team Providers Care Mobile Home Mechanic Name Role Phone Unavailable Primary Care Provider Unavailabl e Reason for Visit * Reason Comments Outpatient Testing Encounter Details Date Type Department Care Team (Late st Contact Info) Description 02/02/2024 10:20 AM EDT Laboratory Laboratory, [facility] 132 [facility] [place] [address] [facility] 132 [facility] [place] [address] Portal vein thrombosis; Anticoagulation 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 Allergies Active Allergy Reactions Criticality Noted Date [...] Tablet (Coumadin)Indicati ons:Portal vein thrombosis,Anticoa gulation 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,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 [...] on file documented as of this encounter Plan of Treatment Upcoming Encounters Date Type Department Care Team (Latest Contact Info) Description 02/02/2024 5:30 PM EDT Anticoagulation Pharmacy, [address] [place] [address] [place] [address] 02/07/2024 2:35 PM EDT Hospital Encounter OR [facility], Operating Room, [facility] - 4th Floor [address] [place] [address] Martell Estrada, DO 21 [place] [address] 02/07/2024 2:35 PM EDT - 02/07/2024 3:28 PM EDT Surgery OR [facility], Operating Room, [facility] - 4th Floor 400 [place] [address] Martell Estrada DO 21 [place] [address] EXTRACAPSULAR CATARACT REMOVAL COMPLEX WITH IOL 02/08/2024 7:45 AM EDT Office Visit [facility] 21 [place] [address] Martell Estrada DO 21 [place] [address] 02/17/2024 10:00 AM EDT Office Visit Ophthalmology, [address] [place] [address] Ronny Grewal MD [address] [address] 03/08/2024 8:00 AM EDT Office Visit Ophthalmology, [facility] 132 [facility] [place] [address] Martell Estrada DO 21 [place] [address] 03/08/2024 12:15 PM EDT Office Visit Ophthalmology, [facility] 132 [facility] [place] [address] Martell Estrada DO 21 [place] [address] 03/22/2024 8:30 AM EDT Office Visit Ophthalmology, [address] [place] [address] Martell Estrada, DO 21 [place] [address] 04/05/2024 9:15 AM EDT Office Visit Ophthalmology, [address] [place] [address] Martell Estrada, DO 21 [place] [address] 04/05/2024 10:00 AM EDT Office Visit Ophthalmology, [address] [address] Martell Estrada, DO 21 [place] [address] Pending Results Name Type Priority Associated Diagnoses Date /Time PT INR Lab Routine Portal vein thrombosis Anticoagulation 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 02/02/2024 10:29 AM EDT Scheduled Procedures Name Priority Associated Diagnoses Date/Ti [...] Diagnosis Secondary cataract of left eye- Primary Portal vein thrombosis Anticoagulation 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 Encounter for therapeutic drug monitoring Secondary cataract of left eye, unspecified secondary [...]
--- OUTSIDE RECORDS SUMMARY | 2024-03-16 07:10 | External Medical Summary | Summary of Care ---
Author Name Unknown Organization [facility] Address [address] [facility] [place] [address] Phone [phone] Care Team Providers Care Open Hearth Helper Name Role Phone Unavailable Primary Care Provider Unavailabl e Reason for Visit * Reason Comments Dosage Adjustment Via Phone (anticoag Cl inic) Encounter Details Date Type Department Care Team (Latest Contact Info) Description 02/02/2024 5:30 PM EDT Anticoagulation Pharmacy, [address] [place] [address] [place] [address] Portal vein thrombosis* Allergies Active Allergy Reactions [...] this encounter Progress Notes * Amanda Kim, [facility] - 02/02/2024 12:18 PM EDT Images from the original note [...] Bruising Objective Current Warfarin Dose As of 02/02/2024 Warfarin maintenance plan: 1 mg (1 mg x 1) every day INR Result As of 02/02/2024 INR goal: 2.0-2.5 INR used for dosin.7 (02/02/2024) Assessment & Plan Warfarin Plan As of 02/02/2024 Full warfarin instructions: 02/01: 0.5 mg; Otherwise 1 mg every day Next INR check: 02/08/2024 Repeat PT/INR in 1 week(s) Weekly dose: decreased Additional Dosing Information: Upcoming eye procedure with Dr Estrada. Spoke with Dr Estrada via [place] Text. Confirmed no warfarin hold needed prior to procedure. Weekly dose decreased. Agreeable to recheck x1 week. Patient has f/u appointment at [facility] on 02/07. Agreeable to go to lab after appointment. Standing orders placed. Description Takes in AM GML to go to area on Wednesdays and Fridays Amanda Kim RPh Clinical Pharmacist 02/02/2024, 12:21 PM documented in this encounter Plan of Treatment Upcoming Encounters Date Type Department Care Team (Latest Contact Info) Description 02/07/2024 2:35 PM EDT Hospital Encounter OR [facility], Operating Room, [facility] - 4th Floor [address] [place] [address] Martell Estrada DO 21 [place] [address] 02/07/2024 2:35 PM EDT - 02/07/2024 3:28 PM EDT Surgery OR [facility], Operating Room, [facility] - 4th Floor [address] [place] [address] Martell Estrada DO 93 [place] [address] EXTRACAPSULAR CATARACT REMOVAL COMPLEX WITH IOL 02/08/2024 7:45 AM EDT Office Visit OphthalmologyJadiel 21 [place] [address] Martell Estrada, DO 21 [place] [address] 02/08/2024 5:30 PM EDT Anticoagulation Pharmacy, [address] [place] [address] [place] [address] 02/17/2024 10:00 AM EDT Office Visit Ophthalmology, [facility] 132 [facility] [place] [address] Ronny Grewal MD [address] [address] 03/08/2024 8:00 AM EDT Office Visit Ophthalmology, [address] [place] [address] Martell Estrada, 21 [place] [address] 03/08/2024 12:15 PM EDT Office Visit Ophthalmology, [facility] 132 [facility] [place] [address] Martell Estrada, DO 21 [place] [address] 03/22/2024 8:30 AM EDT Office Visit Ophthalmology, [address] [place] [address] Martell Estrada, 21 [place] [address] 04/05/2024 9:15 AM EDT Office Visit Ophthalmology, [facility] 132 [facility] [place] [address] Martell Estrada, DO 21 [place] [address] 04/05/2024 10:00 AM EDT Office Visit Ophthalmology, [facility] 132 [facility] [place] [address] Martell Estrada, DO 21 [place] [address] Scheduled Procedures Name Priority Associated Diagnoses Date/Ti [...] Additional history exists COVID-19 Vaccine (1 - 2022- season) 2023 Influenza Vaccine (FLU [...] cataract of left eye- Primary Portal vein thrombosis- Primary Secondary cataract of left eye, unspecified [...]
--- OUTSIDE RECORDS SUMMARY | 2024-03-16 07:11 | External Medical Summary | Summary of Care ---
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 Referred by Dr. Grewal Patient c/o progressively increasing difficulty with vision in left eyes at distance = near. 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 Nursing notes reviewed. Base Eye Exam Visual Acuity (Snellen - Linear) Right Left Dist sc 20/50 LP Tonometry (Tonopen, 1:58 PM) Right Left Pressure 16 8 Pupils Dark Light Shape React APD Right 2.5 2 Round Minimal None Left 4 4 Irregular none Visual Jones (Counting fingers) Right Left Full Restrictions Total superior temporal, inferior temporal, superior nasal, inferior nasal deficiencies Extraocular Movement Right Left Full, Ortho Full, Ortho Neuro/Psych Oriented x3: Yes Mood/Affect: Normal Dilation Both eyes: 0.5% Proparacaine @ 1:59 PM Dilation #2 Both eyes: 1.0% Mydriacyl, 2.5% Phenylephrine @ 2:00 PM Additional Tests Keratometry K1 [place] K2 [place] Right 43.50 147 43.75 057 Left 43.50 177 44.75 087 Slit Lamp and Fundus Exam External Exam Right Left External Normal Normal Slit Lamp Exam Right Left Lids/Lashes DCL DCL Conjunctiva/Sclera White and quiet White and quiet Cornea Clear Clear Anterior Chamber Deep and quiet Deep and quiet Iris Dilated, normal PD 4mm with multiple posterior synechiae Lens 2+ Nuclear sclerosis, vacuoles 4+ Nuclear sclerosis, 4+ cortical Fundus Exam Right Left Vitreous Normal Unable Disc Normal C/D Ratio 0.3 Macula Drusen Vessels Normal Periphery Normal, no hole, tear or detachment. Refraction Wearing Rx Sphere Right +1.25 Left +1.25 Manifest Refraction (Auto) Sphere Cylinder [place] Right +1.00 +1.25 176 Left A/P: Cataract OS Total post PPV cataract Recommend CE/IOL left eye first. Risks, benefits, and alternatives were discussed with the patient.Explained the elective nature of the procedure and that no surgery is without risk. Discussed the option of continued non-surgical management and risks of worsening disease. Explained goals of surgery. No promises made re: outcome. Discussed options including glasses, surgery, observation. All pertinent risks and benefits reviewed with patient, including but not limited to: posterior capsule rupture, need for anterior vitrectomy, dropped/retained lens material, pain, inflammation, infection, abnormal IOP, retinal tear, retinal detachment, bleeding, need for more treatment/surgery, permanent vision loss. Typical postop course discussed and explained potential need for adjustment based on clinical course. The patient verbalized understanding of options, risks/benefits/alternatives of options, and that all questions/concerns were addressed. The patient verbalized a desire to proceed for CE/IOL Indication for removal = visually-significant both eyes Start left eye only Indication for cataract removal explained to patient, as well as expected postoperative visual outcome in setting of the patient's specific overall ocular health. 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 These choices will be reflected in the final selection of the intraocular lens at the time of surgery. Discussed options for surgical anesthesia and potential risks/benefits/alternatives of all options. Discussed need for post-operative drops. Discussed potential need for corrective lenses post-operatively. Discussed possible need for anterior vitrectomy Discussed need for post-operative laser procedure (Nd:YAG capsulotomy). Discussed other potential causes for current decreased visual acuity. The patient was strongly encouraged to call with any questions regarding surgery before and after. +Trypan, higher risk of complication given left eye history - explained in detail Macular off RD, recurrent, post PPV x 2, left eye -To see retina post operatively RTC Immersion IOL OS; look to schedule surgery or sooner prn. A/P explained, patient verbalized understanding. Patient understands to f/u immediately with questions, concerns, or any ophthalmic issues. Martell Estrada DO 01/26/24 I spent a total of 40-54 minutes (exact time 40 mins) on the date of service in preparation, delivery, and documentation of the care provided to Ann Portillo excluding any time spent in the performance of separately billed services. documented in this encounter Nursing Notes * Gwendolyn José TECH - 01/26/2024 2:02 PM EDT Pt presents to clinic for cataract evaluation documented in this encounter Plan of Treatment Upcoming Encounters Date Type Department Care Team (Late st Contact Info) Description 02/01/2024 5:30 PM EDT Anticoagulation Pharmacy, [address] [place] [address] [place] [address] Portal vein thrombosis* 02/02/2024 10:00 AM EDT Nurse Only Ophthalmology, [facility] [place] [address] [place] [address] [place] Nurse Monty Schultz [address] [place] [address] 02/03/2024 7:05 AM EDT Laboratory Lab Mobile Phlebotomy [facility] [address] [facility] [place] [address] Mv[facility], Gml Mobile Home Draw [address] [place] [address] 02/03/2024 5:30 PM EDT Anticoagulation Pharmacy, [address] [place] [address] [place] [address] 02/08/2024 7:45 AM EDT Office Visit Ophthalmology, [place] [address] [place] [address] Martell Estrada, 21 [place] [address] 03/08/2024 8:00 AM EDT Office Visit Ophthalmology, [address] [address] Martell Estrada, DO 21 [place] [address] 03/22/2024 8:30 AM EDT Office Visit Ophthalmology, [address] [place] [address] Martell Estrada, 21 [place] [address] 04/05/2024 9:15 AM EDT Office Visit Ophthalmology, [address] [place] [address] Martell Estrada, 21 [place] [address] 04/05/2024 10:00 AM EDT Office Visit Ophthalmology[address] [place] [address] Martell Estrada, 21 [place] [address] Scheduled Procedures Name Priority Associated Diagnoses Date/Ti [...] rhegmatogenous retinal detachment of left eye- Primary Secondary cataract of left eye, unspecified secondary cataract type Portal vein thrombosis- Primary documented in this [...]
--- OUTSIDE RECORDS SUMMARY | 2024-03-16 07:11 | External Medical Summary | Summary of Care ---
Author Name Unknown Organization [facility] Address [address] [facility] [place] [address] Phone [phone] Care Team Providers Care Chemist Assistant Name Role Phone Keegan Felipe MD Primary Care Provide r Encounter Details Date Type Department Care Team (Late st Contact Info) Description 01/31/2024 Telephone Ophthalmology, [place] 21 [facility] [place] [address] Martell Estrada DO 21 [facility] [place] [address] Allergies Active Allergy Reactions Criticality Noted Date Comments Salicylates Low 09/06/2006 Asprin - hives Bee Stings Hives Low 05/11/2010 Oxycodone Other (Please comment) Medium 09/07/2023 Hallucinations Penicillins Anaphylaxis High 09/06/2006 documented as of this encounter (statuses as of 01/31/2024) Medications Medication Sig Dispensed Refills Start Date End Date Status DAILY MULTIVITAMIN PO TABS 1 tab daily Active Warfarin Sodium 1 MG Oral Tablet (Coumadin)Indicati ons:Portal vein thrombosis,Anticoa gulation 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,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 Take 1 [...] as of this encounter (statuses as of 01/31/2024) Active Problems Problem Noted Date Diagnosed Date 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 Pt is ok with surgery on 02/06 at [facility]. Advised that hospital will call either Tuesday or Tuesday with her arrival time. Immersion is scheduled at 02/01 at 10 am. 1 day post op is scheduled 02/07 at 745. Pt aware of all appointments and verbalized understanding. She would like her [address] Estrada is not in that day. Advised that I would speak to him and get back to her. QUINTEN Moore 01/31/2024 8:54 AM * Telephone Encounter - Palak Shah OSA - 01/31/2024 8:37 AM EDT Attempted to contact patient. Dr Estrada would like to do surgery at [facility] on 02/06. Pt will also need an immersion at . It would need to be on 02/01. Left voicemail message for patient to return my call to discuss surgery, immersion and post op appts. QUINTEN Moore 01/31/2024 8:38 AM documented in this encounter Plan of Treatment Upcoming Encounters Date Type Department Care Team (Late st Contact Info) Description 02/01/2024 7:00 AM EDT Laboratory Lab Mobile Phlebotomy [facility] 25[address] [facility] [place] [address] Mvmg, Gml Mobile Home Draw 2520 [facility] [place] [address] 02/01/2024 5:30 PM EDT Anticoagulation Pharmacy, [address] [place] [address] [place] [address] 02/02/2024 10:00 AM EDT Nurse Only Ophthalmology, [facility] [place] [address] [place] [address] Nurse Monty Sapp [address] [place] [address] 02/08/2024 7:45 AM EDT Office Visit Jadiel Younger 21 [place] [address] Martell Estrada, DO 21 [facility] [place] [address] 02/28/2024 2:20 PM EDT Office Visit Family Medicine [address] [place] [address] [address] [place] [address] 03/08/2024 8:00 AM EDT Office Visit Ophthalmology, [address] [place] [address] Martell Estrada, DO 21 [facility] [place] [address] 03/22/2024 8:30 AM EDT Office Visit Ophthalmology, [address] [place] [address] Martell Estrada, DO 21 [place] [address] 04/05/2024 9:15 AM EDT Office Visit Ophthalmology[address] [place] [address] Martell Estrada, DO [facility] [place] [address] 04/05/2024 10:00 AM EDT Office Visit Ophthalmology[address] [place] [address] Martell Estrada, DO [facility] [place] [address] Health Maintenance Due Date Last Done Comments [...] Discussed due to patient's condition Care Teams Chemist Assistant Relationship Specialty Start Date End Date Keegan Felipe MD [address] [place] [address] [place] [phone] PCP - General Family Medicine 01/31/24 documented as of this encounter
--- OUTSIDE RECORDS SUMMARY | 2024-03-16 07:11 | External Medical Summary | Summary of Care ---
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 Martell Leggett DO 01/26/24 I spent a total of [...] for cataract evaluation documented in this encounter Miscellaneous Notes * Addendum Note - Martell Leggett DO - 02/01/2024 11:37 AM EDTAddended by: MARTELL LEGGETT on: 02/01/2024 11:37 AM Modules accepted: Orders documented in this encounter Plan of Treatment Upcoming Encounters Date Type Department Care Team (Late st Contact Info) Description 02/01/2024 5:30 PM EDT Anticoagulation Pharmacy, [address] [place] [address] [place] [address] Portal vein thrombosis* 02/02/2024 10:00 AM EDT Nurse Only Ophthalmology, [facility] [place] [address] [place] [address] [place] Nurse Monty Schultz [address] [place] [address] 02/03/2024 7:05 AM EDT Laboratory Lab Mobile Phlebotomy [facility] [address] [address] Mvmg, Gml Mobile Home Draw [address] [place] [address] [address] 02/03/2024 5:30 PM EDT Anticoagulation Pharmacy, [address] [place] [address] [place] [address] 02/08/2024 7:45 AM EDT Office Visit OphthalmologyJadiel [place] [address] Martell Leggett, DO 21 [place] [address] 03/08/2024 8:00 AM EDT Office Visit Ophthalmology, [facility] 132 [facility] [place] [address] Martell Leggett, DO 21 [place] [address] 03/22/2024 8:30 AM EDT Office Visit Ophthalmology, [facility] 132 [facility] [place] [address] Martell Leggett, 21 [place] [address] 04/05/2024 9:15 AM EDT Office Visit Ophthalmology, [facility] 132 [facility] [place] [address] Martell Leggett, 21 [place] [address] 04/05/2024 10:00 AM EDT Office Visit Ophthalmology, [facility] 132 [facility] [place] [address] Martell Leggett, 21 [place] [address] Scheduled Procedures Name Priority Associated Diagnoses Date/Ti [...]
--- OUTSIDE RECORDS SUMMARY | 2024-03-16 07:11 | External Medical Summary | Summary of Care ---
Author Name Unknown Organization [facility] Address [address] [facility] [place] [address] Phone [phone] Care Team Providers Care Inventory Control Manager Name Role Phone Unavailable Primary Care Provider Unavailabl e Reason for Visit * Reason Onset Date Comments Appointment Canceled 01/27/2024 Encounter Details Date Type Department Care Team (Late st Contact Info) Description 01/27/2024 Telephone Ophthalmology, [facility] [address] [place] [address] Ronny Grewal MD [address] [place] [address] Appointment Canceled Allergies Active Allergy Reactions Criticality Noted Date Comments Salicylates Low 09/06/2006 Asprin - hives Bee Stings Hives Low 05/11/2010 Oxycodone Other (Please comment) Medium 09/07/2023 Hallucinations Penicillins Anaphylaxis High 09/06/2006 documented as of this encounter (statuses as of 01/27/2024) Medications Medication Sig Dispensed Refills Start Date End Date Status DAILY MULTIVITAMIN PO TABS 1 tab daily Active Warfarin Sodium 1 MG Oral Tablet (Coumadin)Indicati ons:Portal vein thrombosis,Anticoa gulation 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,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 Take 1 [...] as of this encounter (statuses as of 01/27/2024) Active Problems Problem Noted Date Diagnosed Date [...] as of this encounter (statuses as of 01/27/2024) Resolved Problems Problem Noted Date Diagnosed Date Resolved Date Hepatic cirrhosis 04/09/2009 10/28/2022 General medical exam 12/18/2008 009 Urinary tract infection 10/14/200807/2008 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 Estrada saw pt yesterday and recommended pt hold off on seeing Dr. Grewal today due to very dense cataract and not having good views. Sent message to Dr. Grewal about recommendation and he isagreeable to holding off on 01/27/24 appt. Called pt and updated about the above information and she is ok with the plan. Appt for 01/27/24 cancelled and will reevaluate at a later time. ZAYDA Null 01/27/2024 10:44 AM documented in this encounter Plan of Treatment Upcoming Encounters Date Type Department Care Team (Late st Contact Info) Description 01/30/2024 6:00 AM EDT Anticoagulation Pharmacy, [address] [place] [address] [place] [address] 02/28/2024 2:20 PM EDT Office Visit Family Medicine [address] [place] [address] Mendoza Rodriguez [address] [place] [address] 03/08/2024 8:00 AM EDT Office Visit Ophthalmology, [address] [place] [address] Martell Estrada, DO 21 [place] [address] 03/22/2024 8:30 AM EDT Office Visit Ophthalmology, [address] [place] [address] Martell Estrada, DO [address] [place] [address] 04/05/2024 9:15 AM EDT Office Visit Ophthalmology, [address] [place] [address] Martell Estrada, DO 21 [place] [address] 04/05/2024 10:00 AM EDT Office Visit Ophthalmology, [facility] 132 [facility] [place] [address] Martell Estrada, DO [address] [facility] [address] [place] [address] Health Maintenance Due Date Last Done Comments [...]
--- OUTSIDE RECORDS SUMMARY | 2024-03-16 07:11 | External Medical Summary | Summary of Care ---
Author Name Unknown Organization [facility] Address [address] [place] [phone] Phone [phone] Care Team Providers Care Tool Die Maker Name Role Phone Keegan Felipe MD Primary Care Provide r Reason for Referral * Ancillary Services (Within 3 days (urgent)) - Authorized Specialty Diagnoses / Procedures Referred By Contac t Referred To Contact Video Game Creator Diagnoses Anticoagulation 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 Amanda Kim, [facility] [address] [place] [address] Referral ID Status Reason Start Date Expiration Date Visits Requested Visits Authorized [id number] Authorized Ancillary Services Required 01/19/2024 999 999 Question Answer Referral Priority Within 3 days (urgent) Where should this appointment be scheduled? Marty Comments Is Patient homebound? Yes All sections of this form must be filled out completely. Forms with missing or illegible information will be returned for completion. This form should not be modified in any way. Forms that have been modified will be returned. This form may not be submitted by a home health agency. It must be complete and submitted by the ordering provider. One full business day lead time is required and service will be scheduled based on the next service day for the [facility] Phlebotomy does not service every geographical location on a daily basis. Contact [facility] Client Services at to find out service days for a specific location. Medical Laboratory [address] [place] [address] John Sebastian M.D. Director and Semiconductor Dies Loader Patient Name: Ann Portillo : 1945 Sex: female Address [address] [place] [address] Provider: None? Keegan Felipe MD? Diagnosis: Tests Requested PT/INR - as needed starting January 25, 2024 Reason for Visit * Reason Onset Date Comments Advice 01/19/2024 Encounter Details Date Type Department Care Team (Late st Contact Info) Description 01/19/2024 Telephone Centralized Clinical Pharmacy Services, Ariel Romano [address] [place] [address] [place] [address] [place] [address] Advice Allergies Active Allergy Reactions Criticality Noted Date Comments Salicylates Low 09/06/2006 Asprin - hives Bee Stings Hives Low 05/11/2010 Oxycodone Other (Please comment) Medium 09/07/2023 Hallucinations Penicillins Anaphylaxis High 09/06/2006 documented as of this encounter (statuses as of 01/19/2024) Medications Medication Sig Dispensed Refills Start Date [...] as of this encounter (statuses as of 01/19/2024) Active Problems Problem Noted Date Diagnosed Date [...] as of this encounter (statuses as of 01/19/2024) Resolved Problems Problem Noted Date Diagnosed Date Resolved Date Hepatic cirrhosis 04/09/2009 10/28/2022 General medical exam 12/18/2008 009 Urinary tract infection 10/14/2008 10/0 07/2008 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 L to go to area on Wednesdays and Fridays. Made patient aware. Agreeable to 01/24 visit. Amanda Kim RPh, PharmD Clinical Pharmacist - Certified Phlebotomist Medication Therapy Disease Management [facility] 01/19/2024, 3:21 PM Ph.[phone] * Telephone Encounter - Ines Sorto CPhT - 01/19/2024 11:34 AM EDT Caller's name: Ann Preferred call back number(OFFICE NUMBER FOR ): [phone] Reason for call: Pt calling in to cx her OFS appt due to not having transportation. Pt would like to know if she can be set up with [facility] due to her transportation issues and is requesting a return call to discuss. Thank you, Ines Sorto CPhT Distribution Field Technician II Centralized Clinical Pharmacy Services [address] [place] [address] [address] [place] [address] [id number] 01/19/2024,11:34 AM documented in this encounter Plan of Treatment Upcoming Encounters Date Type Department Care Team (Late st Contact Info) Description 01/20/2024 4:00 PM EDT Telemedicine Family Medicine [address] [place] [phone] Keegan Felipe MD [address] [place] [address] [place] [address] 01/26/2024 7:00 AM EDT Anticoagulation Pharmacy, [address] [place] [address] [place] [address] 01/26/2024 1:30 PM EDT Office Visit Ophthalmology, [address] [place] [address] Martell Estrada DO [address] [place] [address] 01/27/2024 12:00 PM EDT Office Visit Ophthalmology, [facility] [place] [address] Ronny Grewal MD [address] [place] [address] 02/28/2024 2:20 PM EDT Office Visit Family Medicine [address] [place] [phone] Mendoza Rodriguez [address] [place] [address] 03/08/2024 8:00 AM EDT Office Visit Ophthalmology, [address] [place] [address] Martell Estrada, DO 21 [place] [address] 03/22/2024 8:30 AM EDT Office Visit Ophthalmology [address] [place] [address] Martell Estrada, DO 21 [place] [address] 04/05/2024 9:15 AM EDT Office Visit Ophthalmology [address] [place] [address] Martell Estrada, 21 [place] [address] 04/05/2024 10:00 AM EDT Office Visit Ophthalmology [address] [place] [address] Martell Estrada, DO 21 [place] [address] Scheduled Referrals Name Type Priority Associated Diagnoses Orde r Schedule HOME PHLEBOTOMY REFERRAL OP Referral Within 3 days (urgent) Anticoagulation 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 Ordered: 01/19/2024 Health Maintenance Due Date Last Done Comments [...] encounter- Primary Encounter for therapeutic drug monitoring documented in this encounter Advance Directives * [...] Discussed due to patient's condition Care Teams Tool Die Maker Relationship Specialty Start Date End Date Keegan Felipe MD [address] [place] [address] [place] [address] PCP - General Family Medicine 03/27/14 documented as of this encounter
--- OUTSIDE RECORDS SUMMARY | 2024-03-16 07:11 | External Medical Summary | Summary of Care ---
Author Name Unknown Organization [facility] Address [address] [facility] [place] [address] Phone [phone] Care Team Providers Care Fire Crew Specialist Name Role Phone Keegan Felipe MD Primary Care Provide r Encounter Details Date Type Department Care Team (Late st Contact Info) Description 01/31/2024 Telephone Ophthalmology, Jadiel 21 [facility] [place] [address] Martell Estrada DO 21 [facility] [place] [address] Allergies Active Allergy Reactions Criticality Noted Date [...] Encounter - Palak Shah, QUINTEN - 01/31/2024 8:37 AM EDT Attempted to contact patient. Dr Estrada would like to do surgery at [facility] on 02/06. Pt will also need [...] EDT Laboratory Lab Mobile Phlebotomy [facility] [place] [address] [facility], [facility] Mobile Home Draw 2520 [facility] [place] [address] 02/01/2024 5:30 PM EDT Anticoagulation Pharmacy, [address] [place] [address] [place] [address] 02/02/2024 10:00 AM EDT Nurse Only Ophthalmology, [facility] 132 [facility] [place] [address] Nurse Monty Sapps 132 [facility] [place] [address] 02/08/2024 7:45 AM EDT Office Visit Jadiel Younger 21 [place] [address] Martell Estrada DO 21 [place] [address] 02/28/2024 2:20 PM EDT Office Visit Family Medicine [address] [place] [phone] Mendoza Rodriguez [address] [place] [address] 03/08/2024 8:00 AM EDT Office Visit Ophthalmology [facility] 132 [facility] [place] [address] Martell Estrada, DO [address] [place] [address] 03/22/2024 8:30 AM EDT Office Visit Ophthalmology, [facility] [address] Martell Estrada, DO 21 [place] [address] 04/05/2024 9:15 AM EDT Office Visit Ophthalmology, [facility] [place] [address] Martell Estrada, DO 21 [place] [address] 04/05/2024 10:00 AM EDT Office Visit Ophthalmology, [facility] 132 [facility] [place] [address] Martell Estrada, DO 21 [place] [address] Health Maintenance Due Date Last Done Comments [...] Discussed due to patient's condition Care Teams Fire Crew Specialist Relationship Specialty Start Date End Date Keegan Felipe MD [address] [place] [address] [place] [address] PCP - General Family Medicine 01/31/24 documented as of this encounter
--- OUTSIDE RECORDS SUMMARY | 2024-03-16 07:11 | External Medical Summary | Summary of Care ---
Author Name Unknown Organization [facility] Address [address] [facility] [place] [address] Phone [phone] Care Team Providers Care Regional Recruiter Name Role Phone Unavailable Primary Care Provider Unavailabl e Reason for Visit * Reason Onset Date Comments Medication Question 01/30/2024 Encounter Details Date Type Department Care Team (Late st Contact Info) Description 01/30/2024 Telephone Centralized Clinical Pharmacy Services, Ariel Romano [address] [place] [address] [place] [address] [place] [address] Medication Question Allergies Active Allergy Reactions Criticality Noted Date Comments Salicylates Low 09/06/2006 Asprin - hives Bee Stings Hives Low 05/11/2010 Oxycodone Other (Please comment) Medium 09/07/2023 Hallucinations Penicillins Anaphylaxis High 09/06/2006 documented as of this encounter (statuses as of 01/30/2024) Medications Medication Sig Dispensed Refills Start Date End Date Status DAILY MULTIVITAMIN PO TABS 1 tab daily Active Warfarin Sodium 1 MG Oral Tablet (Coumadin)Indicati ons:Portal vein thrombosis,Anticoa gulation 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,retirement current use of anticoagulant therapy Take 1 [...] as of this encounter (statuses as of 01/30/2024) Active Problems Problem Noted Date Diagnosed Date [...] as of this encounter (statuses as of 01/30/2024) Resolved Problems Problem Noted Date Diagnosed Date Resolved Date Hepatic cirrhosis 04/09/2009 10/28/2022 General medical exam 12/18/2008 009 Urinary tract infection 10/14/200807/2008 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 No answer. Left message requesting return call to discuss. Yaneth Huynh RPh, PharmD, BCACP Clinical Pharmacist Medication Therapy Management Clinic 01/30/24, 2:56 PM * Telephone Encounter - Debby Pham CPhT - 01/30/2024 2:30 PM EDT Caller's name: Ann Preferred call back number(OFFICE NUMBER FOR HH): [phone] Reason for call: requesting a call from Amanda, states she is very nervous about her INR being sohigh, asking how dangerous it is and if she needs to be concerned. Debby Pham CPhT, [place] Franchise Manager II Centralized Clinical Pharmacy Services (CCPS) (formerly Telepharmacy) [address] [address] [place] [address] ext [phone] * Telephone Encounter - Gwendolyn Mcneil PHARM Tech - 01/30/2024 12:28 PM EDT Caller's name: Ann Preferred call back number(OFFICE NUMBER FOR HH): [phone] Reason for call: Medication question: Pt has a question about her inr and she would like you to know its covered by her insurance. Please return her call. Thank you, Gwendolyn Mcneil Net Wpf Developer Centralized Clinical Pharmacy Services 01/30/2024,12:29 PM documented in this encounter Plan of Treatment Upcoming Encounters Date Type Department Care Team (Late st Contact Info) Description 02/01/2024 5:30 PM EDT Anticoagulation Pharmacy, [address] [place] [address] [place] [address] 02/28/2024 2:20 PM EDT Office Visit Family Medicine [address] [place] [phone] Mendoza Rodriguez, [address] [place] [address] 03/08/2024 8:00 AM EDT Office Visit Ophthalmology, [address], [place] [address] Martell Estrada, DO [facility] [place] [address] 03/22/2024 8:30 AM EDT Office Visit Ophthalmology, [address] [place] [address] Martell Estrada, DO 21 [place] [address] 04/05/2024 9:15 AM EDT Office Visit Ophthalmology, [address] [place] [address] Martell Estrada, 21 [place] [address] 04/05/2024 10:00 AM EDT Office Visit Ophthalmology, [address] [place] [address] Martell Estrada, DO 21 [facility] [place] [address] Health Maintenance Due Date Last Done Comments DXA Scan 1945 Albumin/Creatinine Ratio 12/04/1965 Zoster Vaccines (1 of 2) 12/04/1997 Hepatitis B Vaccine (1 of 3 - Risk 3-dose series) 2007 Pneumococcal Vaccine: 65+ Years (2 of 2 - PCV) 06/04/2010 06/04/2009 Colonoscopy 12/01/2014 12/02/2011, 11/09, 01/14/2009, Additional history exists Depression Screening 07/19/2019 07/19/2018 GFR 10/13/2022 10/13/2021, 04/11, 10/31/2013, Additional history exists COVID-19 Vaccine (2022- season) 2023 Influenza Vaccine (FLU shot) (#1) [...]
--- OUTSIDE RECORDS SUMMARY | 2024-03-16 07:11 | External Medical Summary | Summary of Care ---
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*; Secondary cataract of left eye, unspecified secondary cataract type Allergies Active Allergy Reactions Criticality Noted Date Comments Salicylates Low 09/06/2006 Asprin - hives Bee Stings Hives Low 05/11/2010 Oxycodone Other (Please comment) Medium 09/07/2023 Hallucinations Penicillins Anaphylaxis High 09/06/2006 documented as of this encounter (statuses as of 01/26/2024) Medications Medication Sig Dispensed Refills Start Date End Date Status DAILY MULTIVITAMIN PO TABS 1 tab daily Active Warfarin Sodium 1 MG Oral Tablet (Coumadin)Indicati ons:Portal vein thrombosis,Anticoa gulation 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,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 Take 1 [...] as of this encounter (statuses as of 01/26/2024) Active Problems Problem Noted Date Diagnosed Date [...] as of this encounter (statuses as of 01/26/2024) Resolved Problems Problem Noted Date Diagnosed Date Resolved Date Hepatic cirrhosis 04/09/2009 10/28/2022 General medical exam 12/18/2008 009 Urinary tract infection 10/14/2008 1007/2008 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 1 Overview: ICD-10 update of inactive term documented as of this encounter (statuses as of 01/26/2024) Immunizations Name Administration Dates Next Due Diptheria/Tetanus [...] @ 2:00 PM Additional Tests Keratometry K1 Lacombe K2 [place] Right 43.50 147 43.75 057 Left 43.50 [...] Left +1.25 Manifest Refraction (Auto) Sphere Cylinder [place] Right +1.00 +1.25 176 Left A/P: Cataract [...] obtain axial length - will need immersion 03/07 held; patient wants as soon as possible IOL interpretation = Biometry (IOL) & topography (if indicated) will be obtained in near futureto determine the intended refractive target for this [...] questions, concerns, or any ophthalmic issues. Martell Estrada, DO 01/26/24 I spent a total of [...] Team (Late st Contact Info) Description 01/27/2024 7:05 AM EDT Laboratory Lab Mobile Phlebotomy [facility] [address] [employer] [place] [address] [facility], [facility] Mobile Home Draw [address] [employer] [place] [address] 01/30/2024 6:00 AM EDT Anticoagulation Pharmacy, [address] [place] [address] [place] [address] 02/28/2024 2:20 PM EDT Office Visit Family Medicine [address] [place] [phone] Mendoza Rodriguez [address] [place] [address] 03/08/2024 8:00 AM EDT Office Visit Ophthalmology, [facility] 132 [facility] [place] [address] Martell Estrada DO 21 [facility] [place] [address] 03/22/2024 8:30 AM EDT Office Visit Ophthalmology, [facility] 132 [facility] [place] [address] Martell Estrada, DO 21 [place] [address] 04/05/2024 9:15 AM EDT Office Visit Ophthalmology, [address] [place] [address] Martell Estrada, DO 21 [place] [address] 04/05/2024 10:00 AM EDT Office Visit Ophthalmology, [facility] 132 [facility] [place] [address] Martell Estrada, DO 21 [place] [address] Health Maintenance Due Date Last Done Comments [...]
--- OUTSIDE RECORDS SUMMARY | 2024-03-16 07:11 | External Medical Summary | Summary of Care ---
Author Name Unknown Organization [facility] Address [address] [facility] [place] [address] Phone [phone] Care Team Providers Care Manufacturing Shift Supervisor Name Role Phone Unavailable Primary Care Provider Unavailabl e Reason for Visit * Reason Onset Date Comments Returning Call 01/30/2024 Encounter Details Date Type Department Care Team (Late st Contact Info) Description 01/30/2024 Telephone Centralized Clinical Pharmacy Services, Ariel Romano [address] [place] [address] [place] [address] [place] [address] Returning Call Allergies Active Allergy Reactions Criticality Noted Date [...] Tablet (Coumadin)Indicati ons:Portal vein thrombosis,Anticoa gulation 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,senior living current use of anticoagulant therapy Take 1 [...] Telephone Encounter - Amanda Kim RPh - 01/30/2024 12:16 PM EDT Patient Phone Numbers Returned call and spoke to patient. Addressed in separate encounter. Amanda Kim RPh, PharmD Clinical Pharmacist - D[employer]nut Icer Machine Medication Therapy Disease Management Clinic 01/30/2024, 12:17 PM [phone] * Telephone Encounter - Lashonda Dwyer power plant engineer - 01/30/2024 12:08 PM EDT Caller's name: Ann Preferred call back number(OFFICE NUMBER FOR ): [phone] Reason for call: Patient returning missed call from [facility]. Would like a call back when available. Lashonda Dwyer Repairer Helper Centralized Clinical Pharmacy Services [address] [place] [address] Dr. Fig[address] [place] [address] [phone] 01/30/2024,12:08 PM documented in this encounter Plan of Treatment Upcoming Encounters Date Type Department Care Team (Late st Contact Info) Description 02/01/2024 5:30 PM EDT Anticoagulation Pharmacy, [address] [place] [address] [place] [address] 02/28/2024 2:20 PM EDT Office Visit Family Medicine [address] [place] [phone] Mendoza Rodriguez [address] [place] [address] 03/08/2024 8:00 AM EDT Office Visit Ophthalmology, [facility] 132 [facility] [place] [address] Martell Estrada, DO 21 [facility] [place] [address] 03/22/2024 8:30 AM EDT Office Visit Ophthalmology, [facility] 132 [facility] [place] [address] Martell Estrada, DO [address] [place] [address] 04/05/2024 9:15 AM EDT Office Visit Ophthalmology, [facility] 132 [facility] [place] [address] Martell Estrada, DO 21 [place] [address] 04/05/2024 10:00 AM EDT Office Visit Ophthalmology, [facility] 132 [facility] [place] [address] Martell Estrada, DO 21 [place] [address] Health Maintenance Due Date Last Done Comments [...]
--- OUTSIDE RECORDS SUMMARY | 2024-03-16 07:11 | External Medical Summary | Summary of Care ---
Author Name Unknown Organization [facility] Address [address] [facility] [place] [address] Phone [phone] Care Team Providers Care Legal Service Specialist Name Role Phone Unavailable Primary Care Provider Unavailabl e Reason for Visit * Reason Onset Date Comments Left Without Being Seen 01/20/2024 Encounter Details Date Type Department Care Team (Late st Contact Info) Description 01/20/2024 4:00 PM EDT Telemedicine Family Medicine [address] [phone] Keegan Felipe MD [address] [place] [address] [place] [address] Left without being seen* Allergies Active Allergy Reactions Criticality Noted Date Comments Salicylates Low 09/06/2006 Asprin - hives Bee Stings Hives Low 05/11/2010 Oxycodone Other (Please comment) Medium 09/07/2023 Hallucinations Penicillins Anaphylaxis High 09/06/2006 documented as of this encounter (statuses as of 01/20/2024) Medications Medication Sig Dispensed Refills Start Date End Date Status DAILY MULTIVITAMIN PO TABS 1 tab daily Active Warfarin Sodium 1 MG Oral Tablet (Coumadin)Indicati ons:Portal vein thrombosis,Anticoa gulation 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,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 documented in this encounter Plan of Treatment Upcoming Encounters Date Type Department Care Team (Late st Contact Info) Description 01/25/2024 7:15 AM EDT Laboratory Lab Mobile Phlebotomy [facility] [place] [address] [facility], [facility] Mobile Home Draw 3350 [facility] [place] [address] 01/26/2024 7:00 AM EDT Anticoagulation Pharmacy, [address] [place] [address] [place] [address] 01/26/2024 1:30 PM EDT Office Visit Ophthalmology, [address] [place] [address] Martell Estrada, 14 [place] [address] 01/27/2024 12:00 PM EDT Office Visit Ophthalmology, [address] [place] [address] Ronny Grewal MD [facility] [address] [address] 02/28/2024 2:20 PM EDT Office Visit Family Medicine [address] [place] [phone] Mendoza Rodriguez [address] [place] [address] 03/08/2024 8:00 AM EDT Office Visit Ophthalmology[address] [place] [address] Martell Estrada DO 19 [place] [address] 03/22/2024 8:30 AM EDT Office Visit Ophthalmology, [facility] 132 [place] [address] Martell Estrada, DO [address] [place] [address] 04/05/2024 9:15 AM EDT Office Visit Ophthalmology, [address] [place] [address] Martell Estrada, DO 21 [place] [address] 04/05/2024 10:00 AM EDT Office Visit Ophthalmology, [facility] 132 [facility] [place] [address] Martell Estrada, 21 [place] [address] Health Maintenance Due Date Last Done Comments [...] as of this encounter Visit Diagnoses Diagnosis Left without being seen- Primary documented in this encounter Advance Directives [...]
--- OUTSIDE RECORDS SUMMARY | 2024-03-16 07:11 | External Medical Summary | Summary of Care ---
Author Name Unknown Organization [facility] Address [address] [place] [address] Phone [phone] Care Team Providers Care Farm Adviser Name Role Phone Keegan Felipe MD Primary Care Provide r Reason for Referral * Ancillary Services (Within 3 days (urgent)) - Authorized Specialty Diagnoses / Procedures Referred By Contac t Referred To Contact Psychiatric Assistant Diagnoses Anticoagulation 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 Amanda Kim, [facility] [address] [place] [address] Referral ID Status Reason Start Date Expiration Date Visits Requested Visits Authorized [id number] Authorized Ancillary Services Required 01/19/2024 999 999 [...] on the next service day for the [facility] Home Phlebotomy does not service every geographical location on a daily basis. Contact [facility] Client Services at to find out service days for a specific location. Medical Laboratory [address] [place] [address] John Sebastian M.D. Director and Boiler Operator Patient Name: Ann Portillo : 1945 Sex: female Address [address] [place] [address] Provider: None? Keegan Felipe MD? Diagnosis: Tests Requested PT/INR - as needed starting January 25, 2024 Reason for Visit * Reason Onset Date Comments Advice 01/19/2024 Encounter Details Date Type Department Care Team (Late st Contact Info) Description 01/19/2024 Telephone Centralized Clinical Pharmacy Services, Ariel Romano [address] [place] [address] [place] [address] [place] [address] Advice Allergies Active Allergy Reactions Criticality Noted Date Comments Salicylates Low 09/06/2006 Asprin - hives Bee Stings Hives Low 05/11/2010 Oxycodone Other (Please comment) Medium 09/07/2023 Hallucinations Penicillins Anaphylaxis High 09/06/2006 documented as of this encounter (statuses as of 01/25/2024) Medications Medication Sig Dispensed Refills Start Date End Date Status DAILY MULTIVITAMIN PO TABS 1 tab daily Active Warfarin Sodium 1 MG Oral Tablet (Coumadin)Indicati ons:Portal vein thrombosis,Anticoa gulation 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,director long term care current use of anticoagulant therapy Take 1 [...] as of this encounter (statuses as of 01/25/2024) Active Problems Problem Noted Date Diagnosed Date [...] as of this encounter (statuses as of 01/25/2024) Resolved Problems Problem Noted Date Diagnosed Date Resolved Date Hepatic cirrhosis 04/09/2009 10/28/2022 General medical exam 12/18/2008 009 Urinary tract infection 10/14/2008 10/0 07/2008 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 PT was transfer to the [facility] at mobile lab [phone] * Telephone Encounter - Amanda Kim RPh - 01/19/2024 3:21 PM EDT Patient Phone Numbers Returned call to patient. GML to go to area on Wednesdays and Fridays. Made patient aware. Agreeable to 01/24 visit. Amanda Kim RPh, PharmD Clinical Pharmacist - Still Operator Medication Therapy Disease Management [facility] 01/19/2024, 3:21 PM Ph.[phone] * Telephone Encounter - Ines Sorto CPhT - 01/19/2024 11:34 AM EDT Caller's name: Ann Preferred call back number(OFFICE NUMBER FOR ): [phone] Reason for call: Pt calling in to cx her OFS appt due to not having transportation. Pt would like to know if she can be set up with GML due to her transportation issues and is requesting a return call to discuss. Thank you, Ines Sorto CPhT Ekg Monitor Tech II Centralized Clinical Pharmacy Services [address] [place] [address] Dr. Figueroa [address] [place] [address] [id number] 01/19/2024,11:34 AM documented in this encounter Plan of Treatment Upcoming Encounters Date Type Department Care Team (Late st Contact Info) Description 01/26/2024 7:00 AM EDT Anticoagulation Pharmacy, [address] [place] [address] [place] [address] 01/26/2024 1:30 PM EDT Office Visit Ophthalmology, [address] [place] [address] Martell Estrada, DO 21 [facility] [place] [address] 01/27/2024 12:00 PM EDT Office Visit Ophthalmology, [facility] [address] [facility] [place] [address] Ronny Grewal MD [address] [place] [address] [place] [address] 02/28/2024 2:20 PM EDT Office Visit Family Medicine [address] [place] [phone] Mendoza Rodriguez [address] [place] [address] 03/08/2024 8:00 AM EDT Office Visit Ophthalmology, [address] [place] [address] Martell Estrada, DO 21 [place] [address] 03/22/2024 8:30 AM EDT Office Visit Aren [address] [place] [address] Martell Estrada, DO 21 [place] [address] 04/05/2024 9:15 AM EDT Office Visit Aren [address] [place] [address] Martell Estrada, DO 21 [place] [address] 04/05/2024 10:00 AM EDT Office Visit Aren [address] [place] [address] Martell Estrada, DO 21 [place] [address] Scheduled Referrals Name Type Priority Associated Diagnoses [...] Discussed due to patient's condition Care Teams Farm Adviser Relationship Specialty Start Date End Date Keegan Felipe MD [address] [place] [address] [place] [address] PCP - General Family Medicine 03/27/14 01/19/24 documented as of this encounter
--- OUTSIDE RECORDS SUMMARY | 2024-03-16 07:11 | External Medical Summary | Summary of Care ---
Author Name Unknown Organization [facility] Address [address] [facility] [place] [address] Phone [phone] Care Team Providers Care Glue Wheel Operator Name Role Phone Keegan eFlipe MD Primary Care Provide r Reason for Visit * Reason Comments Dosage Adjustment Via Phone (anticoag Cl inic) Encounter Details Date Type Department Care Team (Latest Contact Info) Description 01/11/2024 6:10 PM EDT Anticoagulation Pharmacy, [address] [place] [address] [place] [address] Portal vein thrombosis* Allergies Active Allergy Reactions Criticality Noted Date Comments Salicylates Low 09/06/2006 Asprin - hives Bee Stings Hives Low 05/11/2010 Oxycodone Other (Please comment) Medium 09/07/2023 Hallucinations Penicillins Anaphylaxis High 09/06/2006 documented as of this encounter (statuses as of 01/10/2024) Medications Medication Sig Dispensed Refills Start Date End Date Status DAILY MULTIVITAMIN PO TABS 1 tab daily Active Warfarin Sodium 1 MG Oral Tablet (Coumadin)Indicati ons:Portal vein thrombosis,Anticoa gulation 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,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 [facility] message sent --No Clinic will follow up again in 1 week(s). Thank you, Violeta Castillo Blade Bender Furnace Tender I Centralized Clinical Pharmacy Services ([facility]) 01/10/2024, 11:04 AM documented in this encounter Plan of Treatment Upcoming Encounters Date Type Department Care Team (Late st Contact Info) Description 01/17/2024 6:10 PM EDT Anticoagulation Pharmacy, [address] [place] [address] [place] [address] 01/20/2024 4:00 PM EDT Telemedicine Family Medicine [address] [place] [phone] Keegan Felipe MD [address] [place] [address] [place] [address] 01/26/2024 1:30 PM EDT Office Visit Ophthalmology, [address] [place] [address] Martell Estrada DO 32 [place] [address] 01/27/2024 12:00 PM EDT Office Visit Ophthalmology, [facility] [place] [address] Ronny Grewal MD [address] [place] [address] [place] [address] 04/05/2024 10:00 AM EDT Office Visit Ophthalmology, [facility] 132 [facility] [place] [address] Martell Estrada DO 87 [place] [address] Health Maintenance Due Date Last Done Comments DXA Scan 1945 Albumin/Creatinine Ratio 12/04/1965 Zoster Vaccines (1 of 2) 12/04/1997 Hepatitis B (1 of 3 - Risk 3-dose series) [...] - Td or Tdap) 07/13/2031 07/13/2021, 02/02/2006 GARDASIL-HPV IMMUNIZATION SERIES Aged Out No longer eligible based on [...] Discussed due to patient's condition Care Teams Glue Wheel Operator Relationship Specialty Start Date End Date Keegan Felipe MD [address] [place] [address] [place] [address] PCP - General Family Medicine 03/27/14 documented as of this encounter
--- OUTSIDE RECORDS SUMMARY | 2024-03-16 07:11 | External Medical Summary | Summary of Care ---
Author Name Unknown Organization [facility] Address [address] [facility] [place] [address] Phone [phone] Care Team Providers Care Best Second Jobs Name Role Phone Unavailable Primary Care Provider Unavailabl e Reason for Visit * Reason Onset Date Comments Medication Question 01/30/2024 Encounter Details Date Type Department Care Team (Late st Contact Info) Description 01/30/2024 Telephone Centralized Clinical Pharmacy Services, Ariel Romano [address] [place] [address] [place] [address] [place] [address] Medication Question Allergies Active Allergy Reactions Criticality [...] Tablet (Coumadin)Indicati ons:Portal vein thrombosis,Anticoa gulation 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,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 current use of anticoagulant therapy Take 1 [...] Notes * Telephone Encounter - Amanda Kim [facility] - 01/30/2024 3:40 PM EDT Patient Phone Numbers Returned call to patient. Counseled patient on the significance of INR elevation, the increased bleed risk associated with such, sign/symptoms of bleeding, and when to seek medical attention. Reviewed we will HOLD tonight and recheck closely x2 days. Amanda Kim RPh, PharmZelalem Clinical Pharmacist - Supervisor Functional Testing Medication Therapy Disease Management Clinic 01/30/2024, 3:52 PM Ph.[phone] * Telephone Encounter - Yaneth Huynh RPh - 01/30/2024 2:56 PM EDT Patient Phone Numbers Returned patient's call to [facility] clinic. No answer. Left message requesting return call to discuss. Yaneth Huynh RPh, Tess, [facility] Clinical Pharmacist Medication Therapy Management Clinic 01/30/24, 2:56 PM * Telephone Encounter - Debby Pham CPhT - 01/30/2024 2:30 PM EDT Caller's name: Ann Preferred call back number(OFFICE NUMBER FOR ): [phone] Reason for call: requesting a call from Amanda, states she is very nervous about her INR being sohigh, asking how dangerous it is and if she needs to be concerned. Debby Pham CPhT, [place] Long Term Acute Care Registered Nurse II Centralized Clinical Pharmacy Services ([facility]) (formerly Telepharmacy) [phone] [address] ext [phone] * Telephone Encounter - Gwendolyn Mcneil PHARM Tech - 01/30/2024 12:28 PM EDT Caller's name: Ann Preferred call back number(OFFICE NUMBER FOR ): [phone] Reason for call: Medication question: Pt has a question about her inr and she would like you to know its covered by her insurance. Please return her call. Thank you, Gwendolyn Mcneil Hoop Puncher Centralized Clinical Pharmacy Services 01/30/2024,12:29 PM documented in this encounter Plan of Treatment Upcoming Encounters Date Type Department Care Team (Late st Contact Info) Description 02/01/2024 5:30 PM EDT Anticoagulation Pharmacy, [address] [place] [address] [place] [address] 02/28/2024 2:20 PM EDT Office Visit Family Medicine [address] [place] [phone] Mendoza Rodriguez[address] [place] [address] 03/08/2024 8:00 AM EDT Office Visit Ophthalmology, [address] [place] [address] Martell Estrada, DO 83 [place] [address] 03/22/2024 8:30 AM EDT Office Visit Aren [address] [place] [address] Martell Estrada, [address] [place] [address] 04/05/2024 9:15 AM EDT Office Visit Aren [address] [place] [address] Martell Estrada, [address] [facility] [place] [address] 04/05/2024 10:00 AM EDT Office Visit Ophthalmology [address] [place] [address] Martell Estrada, DO 21 [facility] [place] [address] Health Maintenance Due Date Last Done Comments [...]
--- OUTSIDE RECORDS SUMMARY | 2024-03-16 07:11 | External Medical Summary ---
Author Name Unknown Address Unknown Organization K01:[facility] [place] [address] [place] [address] Laboratory Report Ordering Provider Test Date Status SANDRAJUANNARDA 01/27/2024 08:50:00 Final Warfarin Therapy
INR: 2 .0-3.0 conventional anticoagulation
INR: 2.5- 3.5 high intensity anticoagulation Observation Date Value Abnormality Reference (Units ) Status PT 01/27/2024 08:50:00 38.0 Above high normal 11 .6-15.2 (seconds) Final INR 01/27/2024 08:50:00 3.8 Above high normal 0. 8-1.2 Final Performing Location [facility] [place] [address] [place] [address]
--- OUTSIDE RECORDS SUMMARY | 2024-03-16 07:11 | External Medical Summary | Summary of Care ---
Author Name Unknown Organization [facility] Address [address] [facility] [place] [address] Phone [phone] Care Team Providers Care Burnishing Machine Operator Name Role Phone Unavailable Primary Care Provider Unavailabl e Reason for Visit * Reason Comments Dosage Adjustment Via Phone (anticoag Cl inic) Encounter Details Date Type Department Care Team (Latest Contact Info) Description 01/30/2024 6:00 AM EDT Anticoagulation Pharmacy, [address] [place] [address] [place] [address] Portal vein thrombosis* Allergies Active Allergy Reactions [...] Tablet (Coumadin)Indicati ons:Portal vein thrombosis,Anticoa gulation 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,shelter current use of anticoagulant therapy Take 1 [...] as of this encounter Progress Notes * Amadna Kim, [facility] - 01/30/2024 11:52 AM EDT Images from the original note were not included. Medication Therapy Disease Management - Anticoagulation Patient: Ann Portillo | : 1945 Subjective Contacts Type Contact Phone/Fax 01/30/2024 12:00 PM EDT Phone (Outgoing) Ann Portillo (Self) [phone] (M) Left Message 01/30/2024 12:10 PM EDT Phone (Outgoing) Ann Portillo (Self) [phone] (M) Spoke to Patient Patient-Reported Symptoms: Patient Findings Positives: Missed doses Negatives: Signs/symptoms of thrombosis, Signs/symptoms of bleeding, Change in health, Change in alcohol use, Change in activity, Upcoming invasive procedure, Extra doses, Change in medications, Change in diet/appetite, Bruising Objective Current Warfarin Dose As of 01/30/2024 Warfarin maintenance plan: 2 mg (1 mg x 2) every Mon, Fri; 1 mg (1 mg x 1) all other days INR Result As of 01/30/2024 INR goal: 2.0-2.5 INR used for dosin.8 (01/27/2024) Assessment & Plan Warfarin Plan As of 01/30/2024 Full warfarin instructions: 01/29: Hold; Otherwise 2 mg every Mon, Fri; 1 mg all other days Next INR check: 02/01/2024 Repeat PT/INR in 2 week(s) Weekly dose: not changed Additional Dosing Information: Patient notes to significant stress with her eye. Believes she missed dose on 01/28. Instructed to hold again today and will repeat x2 days to ensure back to therapeutic range. Had diarrhea prior to INR check on 01/26 as well. Description Takes in AM GML to go to area on Wednesdays and Fridays Amanda Kim RPh Clinical Pharmacist 01/30/2024, 11:52 AM documented in this encounter Plan of Treatment Upcoming Encounters Date Type Department Care Team (Late st Contact Info) Description 02/01/2024 5:30 PM EDT Anticoagulation Pharmacy, [address] [place] [address] [place] [address] 02/28/2024 2:20 PM EDT Office Visit Family Medicine [address] [place] [phone] Mendoza Rodriguez, [address] [place] [address] 03/08/2024 8:00 AM EDT Office Visit Ophthalmology, [address] [place] [address] Martell Estrada, DO [facility] [place] [address] 03/22/2024 8:30 AM EDT Office Visit Ophthalmology, [address] [place] [address] Martell Estrada, DO [address] [place] [address] 04/05/2024 9:15 AM EDT Office Visit Ophthalmology, [address] [place] [address] Martell Estrada, DO [facility] [place] [address] 04/05/2024 10:00 AM EDT Office Visit Ophthalmology, [address] [address] Martell Estrada, DO [facility] [place] [address] Health Maintenance Due Date Last Done Comments [...]
--- OUTSIDE RECORDS SUMMARY | 2024-03-16 07:12 | External Medical Summary | Summary of Care ---
Author Name Unknown Organization [facility] Address [address] [place] [address] Phone [phone] Care Team Providers Care Liquefaction And Regasification Helper Name Role Phone Keegan Felipe MD Primary Care Provide r Reason for Visit * Reason Onset Date Comments Advice 12/06/2023 Encounter Details Date Type Department Care Team (Late st Contact Info) Description 12/06/[address] [phone] Services, Scheduling [address] [place] [address] Advice Allergies Active Allergy Reactions Criticality Noted Date Comments Salicylates 09/06/2006 Asprin - hives Bee Stings Hives 05/11/2010 Oxycodone 09/07/2023 Penicillins Anaphylaxis High 09/06/2006 documented as of this encounter (statuses as of 12/06/2023) Medications Medication Sig Dispensed Refills Start Date End Date Status DAILY MULTIVITAMIN PO TABS 1 tab daily Active Warfarin Sodium 1 MG Oral Tablet (Coumadin)Indicati ons:Portal vein thrombosis,Anticoa gulation 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,longterm current use of anticoagulant therapy Take 1 [...] as of this encounter (statuses as of 12/06/2023) Active Problems Problem Noted Date Diagnosed Date [...] as of this encounter (statuses as of 12/06/2023) Resolved Problems Problem Noted Date Diagnosed Date Resolved Date Hepatic cirrhosis 04/09/2009 10/28/2022 General medical exam 12/18/2008 009 Urinary tract infection 10/14/200807/2008 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 1 Overview: ICD-10 update of inactive term documented as of this encounter (statuses as of 12/06/2023) Immunizations Name Administration Dates Next Due Diptheria/Tetanus (Adult) 02/02/2006 PPD 04/29/2008 Pneumococcal Polysaccharide PPV23 (Pneumovax) 06/04/2009 Seasonal Influenza Virus Vac cine, Unspecified Formulation 06/18/2021,06/19/2020,04/30/2014,04/10,04/11/2012,04/15/2011,04/15/2010 ,04/10/2009 Seasonal Influenza, Quadriva lent Hd (Fluzone Hd) 05/07/2022,06/18/2021 Seasonal Influenza, Quadriva lent, No Preserve, IM 06/19/2020 Seasonal Influenza, Split, I IV3, With Preserve, Inj 04/30/2014,04/10/2013,04/11/2012,04/15,04/15/2010,04/10/2009 TDAP (age 10 and older)(Boostrix) 07/13/2021 TDAP (age 11 and older)(Adacel) 10/15/2010(Defer red: Patient Refused) documented as of this encounter Social History Tobacco Use Types Packs/Day Years Used Date Smoking Tobacco: Never Smokeless Tobacco: Never Alcohol Use Standard Drinks/Week Comments Yes 0 (1 standard drink = 0.6 oz pure alcohol) occasionally yrs ago; quit in 03/18 PHQ-2 Answer Date Recorded PHQ-2 Score 0 07/19/2018 Sex and Gender Information Value Date Recorded Sex Assigned at Not on file Gender Identity Not on file Sexual Orientation Not on file Job Start Date Occupation Industry Not on file Not on file Not on file documented as of this encounter Miscellaneous Notes * Telephone Encounter - Barbara Harmon OSA - 12/06/2023 10:19 AM EDT Reviewed pt's chart, there are no instructions about scheduling for cataract. She would need an eval with cataract surgeon 1st. I will need to check with Dr Grewal & see where he wanted her togo. Pt is normally seen @ [facility]. * Telephone Encounter - Mylene Garcia OSA - 12/06/2023 9:37 AM EDT Patient calling-She is asking when someone will be scheduling her cataract surg. I told her she needs 1 month f/u first as per dr Grewal note. Pt states that she does not need f/u and was told someone would reach out to schedule and she has not heard anything. Please assist documented in this encounter Plan of Treatment Upcoming Encounters Date Type Department Care Team (Late st Contact Info) Description 12/09/2023 11:00 AM EDT Office Visit Ophthalmology, [facility] [address] [place] [address] Ronny Grewal MD [address] [facility] [address] [place] [address] 12/12/2023 11:20 AM EDT Anticoagulation Pharmacy, [address] [place] [address] [place] [address] 01/20/2024 4:00 PM EDT Telemedicine Family Medicine [address] [place] [phone] Keegan Felipe MD [address] [place] [address] [place] [address] Health Maintenance Due Date Last Done Comments [...] - season) 2023 Influenza Vaccine (FLU shot) (Season Ended) 2024 05/07/2022, 06/18/2021, 06/18/2021, Additional history exists [...] Discussed due to patient's condition Care Teams Liquefaction And Regasification Helper Relationship Specialty Start Date End Date Keegan Felipe MD [address] [place] [address] [place] [address] PCP - General Family Medicine 03/27/14 documented as of this encounter
--- OUTSIDE RECORDS SUMMARY | 2024-03-16 07:12 | External Medical Summary | Summary of Care ---
Author Name Unknown Organization [facility] Address [address] [facility] [place] [address] Phone [phone] Care Team Providers Care Electric Motor Analyst Name Role Phone Keegan Felipe MD Primary Care Provide r Reason for Visit * Reason Comments Post-Op Encounter Details Date Type Department Care Team (Late st Contact Info) Description 10/21/2023 10:30 AM EDT Office Visit Ophthalmology, 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* Allergies Active Allergy Reactions Criticality Noted Date Comments Salicylates 09/06/2006 Asprin - hives Bee Stings Hives 05/11/2010 Oxycodone 09/07/2023 Penicillins Anaphylaxis High 09/06/2006 documented as of this encounter (statuses as of 10/21/2023) Medications Medication Sig Dispensed Refills Start Date End Date Status DAILY MULTIVITAMIN PO TABS 1 tab daily 0 Active Atenolol 25 MG Oral Tablet (Tenormin)Indicati ons:HTN, goal below 140/90 TAKE 1 TABLET BY MOUTH EVERY DAY 90 Tablet 0 3 Active Warfarin Sodium 1 MG Oral Tablet (Coumadin)Indicati ons:Portal vein thrombosis,Anticoa gulation 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,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 Mood and affect: normal POST-RETINA SURGERY NOTE: HPI: Ann Portillo is a 77 year old female s/p retinal surgery. No complaints. Base Eye Exam Visual Acuity (Snellen - Linear) Right Left Dist cc 20/50 -1 HMO@2' Dist ph cc 20/40 -2 NI Tonometry (Tonopen, 10:48 AM) Right Left Pressure 15 11 Pupils Dark Light Shape React APD Right 4 3 Round Slow None Left 5 5 Round none None Visual Jones (Counting fingers) Right Left Full Restrictions Total inferior temporal, superior nasal deficiencies; Partial outer superior temporal,inferior nasal deficiencies Extraocular Movement Right Left Full, Ortho Full, Ortho Neuro/Psych Oriented x3: Yes Mood/Affect: Normal Dilation Both eyes: 0.5% Proparacaine @ 10:47 AM Dilation #2 Left eye: 1.0% Mydriacyl, 2.5% Phenylephrine @ 10:47 AM Dilation Comments Patient cautioned that effects of dilation may last 2-7 hours dependant upon individual reaction. It was discussed that driving while dilated is not recommended. EXTERNAL: mild periorbital ecchymosis/edema. MOTILITY: full OU SLE/DFE OS: Lids/Lashes: wnl Conjunctiva/Sclera: +mild subconj. heme, sutures Cornea: clear Anterior Chamber: deep and trace cell/flare Iris: normal Lens: gas cataract Dilated fundus exam: optic nerve: no pallor/edema retina: all flat, mature laser, fresh laser superiorly and temporally, >90%gas bubble A/P: 1. 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 No lying on back until gas resolved -Eye shield on while sleeping for 1 week -Patient is to f/u immediately if she develops worsening redness, eye pain, decrease in vision, nausea/vomiting, or discharge from eye, as these could be signs of an infection or increased pressure. F/u 1 week or sooner if problems Christopher T Cessna, DO CC: Dr. Low CC: PCP: Keegan Felipe MD documented in this encounter Nursing Notes * Danii Barbour, RN - 10/21/2023 10:35 AM EDT Ann Portillo presents for p/o check. Patient's name preference, 'Ann' Last visit: 09/08/2023 Are you a diabetic? No Post operative day 1 procedure: Vitrectomy for RD Operative eye: LEFT EYE Pt denies complaints Dressing removed: Drainage min scant serosanguinous. Cleansed with DSD NSS. Did you wear eye shield to bed, slept on unaffected side and avoid bending over and heavy lifting? Yes Do you drive? no No OCT images this visit documented in this encounter Plan of Treatment Upcoming Encounters Date Type Department Care Team (Late st Contact Info) Description 10/27/2023 10:45 AM EDT Office Visit Ophthalmology, [facility] [address] [place] [address] Rnony Grewal MD [address] [place] [address] 10/31/2023 10:30 AM EDT Anticoagulation Pharmacy, [address] [place] [address] [place] [address] 10/31/2023 11:00 AM EDT Office Visit Family Medicine [address] [place] [phone] Keegan Felipe MD [address] [place] [address] [place] [address] Health Maintenance Due Date Last Done Comments DXA Scan 1945 Albumin/Creatinine Ratio 12/04/1965 Zoster Vaccines (1 of 2) 12/04/1997 Hepatitis B (1 of 3 - Risk 3-dose series) 2007 Pneumococcal Vaccine: 65+ Years (2 of 2 - PCV) 06/04/2010 06/04/2009 COLONOSCOPY-EVERY 3 YRS AGES 18-100 12/01/2014 12/02/2011, 12/02/2011, 01/14/2009, Additional history exists Depression Screening 07/19/2019 [...] Primary documented in this encounter Advance Directives Latest Code Status on File Code Status Date Activated Date Inactivated Comments Full Code 10/20/2023 1:39 PM 10/20/2023 9:04 PM This order reflects the patients wishes and were consensually agreed upon. Question Answer Comments Discussion of Advance Directives occurred with: Not Discussed due to patient's condition Code Status History Code Status Date Activated Date Inactivated Comments Full Code 09/07/2023 10:51 AM 09/07/2023 6:05 PM This order reflects the patients wishes and were consensually agreed upon. Question Answer Comments Discussion of Advance Directives occurred with: Not Discussed due to patient's condition Care Teams Electric Motor Analyst Relationship Specialty Start Date End Date Keegan Felipe MD [address] [place] [address] [place] [address] PCP - General Family Medicine 03/27/14 documented as of this encounter
--- OUTSIDE RECORDS SUMMARY | 2024-03-16 07:12 | External Medical Summary | Summary of Care ---
Author Name Unknown Organization [facility] Address [address] [facility] [address] Phone [phone] Care Team Providers Care Skin Drier Name Role Phone Keegan Felipe MD Primary Care Provide r Reason for Visit * Reason Comments Appointment Encounter Details Date Type Department Care Team (Latest Contact Info) Description 01/02/2024 6:10 PM EDT Anticoagulation Pharmacy, [address] [place] [address] [place] [address] Portal vein thrombosis* Allergies Active Allergy Reactions Criticality Noted Date Comments Salicylates Low 09/06/2006 Asprin - hives Bee Stings Hives Low 05/11/2010 Oxycodone Other (Please comment) Medium 09/07/2023 Hallucinations Penicillins Anaphylaxis High 09/06/2006 documented as of this encounter (statuses as of 01/02/2024) Medications Medication Sig Dispensed Refills Start Date End Date Status DAILY MULTIVITAMIN PO TABS 1 tab daily Active Warfarin Sodium 1 MG Oral Tablet (Coumadin)Indicati ons:Portal vein thrombosis,Anticoa gulation 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,[facility] current use of anticoagulant therapy Take 1 [...] as of this encounter (statuses as of 01/02/2024) Active Problems Problem Noted Date Diagnosed Date [...] as of this encounter (statuses as of 01/02/2024) Resolved Problems Problem Noted Date Diagnosed Date Resolved Date Hepatic cirrhosis 04/09/2009 10/28/2022 General medical exam 12/18/2008 009 Urinary tract infection 10/14/20080 07/2008 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 [facility] message sent --no Clinic will follow up again in 1 week(s). Thank you, Lisa Heard [facility]asing[facility] 01/02/2024,9:30 AM documented in this encounter Plan of Treatment Upcoming Encounters Date Type Department Care Team (Late st Contact Info) Description 01/11/2024 6:10 PM EDT Anticoagulation Pharmacy, [address] [place] [address] [place] [address] 01/20/2024 4:00 PM EDT Telemedicine Family Medicine [address] [place] [phone] Keegan Felipe MD [address] [place] [address] [place] [address] 01/26/2024 1:30 PM EDT Office Visit Ophthalmology, [facility] [address] [facility] [place] [address] Martell Estrada DO [address] [place] [address] 01/27/2024 12:00 PM EDT Office Visit Ophthalmology, [facility] 132 [facility] [place] [address] Ronny Grewal MD [address] [place] [address] 04/05/2024 10:00 AM EDT Office Visit Ophthalmology, [facility] 132 [facility] [place] [address] Martell Estrada DO [facility] [place] [address] Health Maintenance Due Date Last Done Comments [...] Discussed due to patient's condition Care Teams Skin Drier Relationship Specialty Start Date End Date Keegan Felipe MD [address] [place] [address] [place] [address] PCP - General Family Medicine 03/27/14 documented as of this encounter
--- OUTSIDE RECORDS SUMMARY | 2024-03-16 07:12 | External Medical Summary ---
Author Name Unknown Address Unknown Organization : Laboratory Report Ordering Provider Test Date Status YOVANI FLORES 11/10/2023 09:42:15 Final Therapeutic ranges for non-o perative patients:
Prophylaxsis/treatment of DVT: (Range:2.0-3.0)
Treatment of pulmonary embolism:(Range:2.0-3.0)
Prevention of systemic embolism from:
-tissue heart valves
-acute myocardial infarction
-valvular heart disease
-atrial fibrillation
(Range: 2.0-3.0)
Mechanical prosthetic valves: (Range: 2.5-3.5) Observation Date Value Abnormality Reference (Units ) Status INR in Capillary blood by Coagulation assay 11/10/2023 09:42:15 2.0 (INR) Final Performing Location
--- OUTSIDE RECORDS SUMMARY | 2024-03-16 07:12 | External Medical Summary ---
Author Name Unknown Address Unknown Organization : Laboratory Report Ordering Provider Test Date Status SABRINA DAVIS 10/20/2023 14:34:46 Final Warfarin Therapy
INR: 2 .0-3.0 conventional anticoagulation
INR: 2.5- 3.5 high intensity anticoagulation Observation Date Value Abnormality Reference (Units ) Status PT 10/20/2023 14:34:46 22.9 Above high normal 11 .6-15.2 (seconds) Final INR 10/20/2023 14:34:46 2.0 Above high normal 0. 8-1.2 Final Performing Location
--- OUTSIDE RECORDS SUMMARY | 2024-03-16 07:12 | External Medical Summary | Summary of Care ---
Author Name Unknown Organization [facility] Address [address] [facility] [address] Phone [phone] Care Team Providers Care Major General Name Role Phone Keegan Felipe MD Primary Care Provide r Reason for Visit * Reason Onset Date Comments Medication Refill 11/07/2023 Encounter Details Date Type Department Care Team (Late st Contact Info) Description 11/07/2023 Refill Family Medicine [address] [phone] Keegan Felipe MD [address] [place] [address] [place] [address] HTN, goal below 140/90 Allergies Active Allergy Reactions Criticality Noted Date Comments Salicylates 09/06/2006 Asprin - hives Bee Stings Hives 05/11/2010 Oxycodone 09/07/2023 Penicillins Anaphylaxis High 09/06/2006 documented as of this encounter (statuses as of 11/07/2023) Medications Medication Sig Dispensed Refills Start Date End Date Status DAILY MULTIVITAMIN PO TABS 1 tab daily 0 Active Warfarin Sodium 1 MG Oral Tablet [...] and 1 Drop before bedtime. 5 mL 0 4 Active Atenolol 25 MG Oral Tablet (Tenormin)Indicati ons:HTN, goal below 140/90 Take 1 Tablet by mouth in the morning. 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 Authorizing Provider: TYSHAWN GARAY Ordering User: NABILA RAMSAY * Telephone Encounter - Jocelyne Scott PHARM Tech - 11/07/2023 2:25 PM EDT Pt requesting HIGH PRIORITY due to being out of medication. Did you pend patient's preferred pharmacy and medication before forwarding?yes Pharmacy: [id number] [facility] Pending Prescriptions: Disp Refills Atenolol 25 MG Oral Tablet (Tenormin) 90 Tab*0 Sig: Take 1 Tablet by mouth in the morning. Last Visit: 11/15/2022 (in office), Visit date not found (telemedicine) Next Visit: 01/20/2024 If no future appointments scheduled, and last appointment is greater than a year ago, please schedule patient for a follow-up appointment Last date the medication was ordered: 02/14/2023 Is this request for a controlled substance?No [...] Care Team (Late st Contact Info) Description 11/11/2023 6:10 PM EDT Anticoagulation Pharmacy, [address] [place] [address] [place] [address] 11/25/2023 12:45 PM EDT Office Visit Op[facility], [facility] [place] [address] Ronny Grewal MD [address] [place] [address] 01/20/2024 4:00 PM EDT Telemedicine Family Medicine [address] [place] [phone] Keegan Felipe MD [address] [place] [address] [place] [address] Health Maintenance Due Date Last Done Comments [...] as of this encounter Visit Diagnoses Diagnosis HTN, goal below 140/90 Unspecified essential hypertension documented in this encounter Advance Directives Latest [...] Discussed due to patient's condition Care Teams Major General Relationship Specialty Start Date End Date Keegan Felipe MD [address] [place] [address] [place] [address] PCP - General Family Medicine 03/27/14 documented as of this encounter
--- OUTSIDE RECORDS SUMMARY | 2024-03-16 07:12 | External Medical Summary | Summary of Care ---
Author Name Unknown Organization [facility] Address [address] [facility] [address] Phone [phone] Care Team Providers Care Traffic Expert Name Role Phone Keegan Felipe MD Primary Care Provide r Reason for Visit * Reason Onset Date Comments Appointment 10/22/2023 Encounter Details Date Type Department Care Team (Late st Contact Info) Description 10/22/2023 Telephone Ophthalmology, [facility] [address] [place] [address] Ronny Grewal MD [address] [facility] [address] [place] [address] Appointment Allergies Active Allergy Reactions Criticality Noted Date Comments Salicylates 09/06/2006 Asprin - hives Bee Stings Hives 05/11/2010 Oxycodone 09/07/2023 Penicillins Anaphylaxis High 09/06/2006 documented as of this encounter (statuses as of 10/24/2023) Medications Medication Sig Dispensed Refills Start Date End Date Status DAILY MULTIVITAMIN PO TABS 1 tab daily 0 Active Atenolol 25 MG Oral Tablet (Tenormin)Indicati ons:HTN, goal below 140/90 TAKE 1 TABLET BY MOUTH EVERY DAY 90 Tablet 0 02/14/2023 Active Warfarin Sodium 1 MG Oral Tablet (Coumadin)Indicati ons:Portal vein thrombosis,Anticoa gulation 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,prison current use of anticoagulant therapy Take 1 -2 tablets by mouth daily as directed by anticoagulation clinic 180 Tablet 3 03/01/2023 Active documented as of this encounter (statuses as of 10/24/2023) Active Problems Problem Noted Date Diagnosed Date [...] as of this encounter (statuses as of 10/24/2023) Resolved Problems Problem Noted Date Diagnosed Date Resolved Date Hepatic cirrhosis 04/09/2009 10/28/2022 General medical exam 12/18/2008 009 Urinary tract infection 10/14/2008 10/0 07/2008 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 Appt. Rescheduled for 10/28/23 at [facility]. Danii Barbour RN 10/24/2023 8:43 AM * Telephone Encounter - Kay Amador OSA - 10/22/2023 3:41 PM EDT Who is patient being scheduled with? 10/26 Dr Grewal in [place] What is the reason the patient needs to be seen sooner? Due to transportation, pt can't get to [place]. Pt MUST be seen in . When is the next available appointment? December 08 [facility]: Retinal injections should not be scheduled further out than a week or two. Any appointment related messages , [place] [phone] If appointment needed 6 weeks or less, alecia as high priority. [place]: Any appointment related messages ,[place] [phone] [place]: Appointment related concerns: Create and Send Telephone Encounter to P [phone] documented in this encounter Plan of Treatment Upcoming Encounters Date Type Department Care Team (Late st Contact Info) Description 10/28/2023 11:30 AM EDT Office Visit Ophthalmology, [facility] 132 [facility] [place] [address] Ronny Grewal MD [address] [place] [address] 10/31/2023 10:30 AM EDT Anticoagulation Pharmacy, [address] [place] [address] [place] [address] 10/31/2023 11:00 AM EDT Office Visit Family Medicine [address] [place] [phone] Keegan Felipe MD [address] [place] [address] [place] [address] Health Maintenance Due Date Last Done Comments [...] filedocumented as of this encounter Advance Directives Latest Code Status [...] Discussed due to patient's condition Care Teams Traffic Expert Relationship Specialty Start Date End Date Keegan Felipe MD [address] [place] [address] [place] [address] PCP - General Family Medicine 03/27/14 documented as of this encounter
--- OUTSIDE RECORDS SUMMARY | 2024-03-16 07:12 | External Medical Summary | Summary of Care ---
Author Name Unknown Organization [facility] Address [address] [facility] [place] [address] Phone [phone] Care Team Providers Care Meat Cutter Apprentice Name Role Phone Keegan Felipe MD Primary Care Provide r Reason for Visit * Reason Onset Date Comments Medication Problem 10/21/2023 Encounter Details Date Type Department Care Team (Late st Contact Info) Description 10/21/2023 Telephone Ophthalmology, [facility] [address] [place] [address] Trent Christiansen, [address] [place] [address] Medication Problem Allergies Active Allergy Reactions Criticality Noted Date [...] Telephone Encounter - Danii Barbour RN - 10/21/2023 2:03 PM EDT Spoke to pt.; reported that she found the eye drops. Danii Barbour RN 10/21/2023 2:03 PM * Telephone Encounter - Nuzhat Loving OSA - 10/21/2023 12:02 PM EDT Ann is calling today because not all her drops were returned to her blue bag at her appt with Dr. Christiansen. She is requesting to stop by for another bag. I was unable to hear anything when I took her off hold. Please reach out to her at [phone]. documented in this encounter Plan of Treatment Upcoming Encounters Date Type Department Care Team (Late st Contact Info) Description 10/27/2023 10:45 AM EDT Office Visit Ophthalmology, [facility] [address] [place] [address] Ronny Grewal MD [address] [place] [address] 10/31/2023 10:30 AM EDT Anticoagulation Pharmacy, [address] [place] [address] [place] [address] 10/31/2023 11:00 AM EDT Office Visit Family Medicine [address] [place] [phone] Keegan Felipe MD [address] [place] [address] [place] [address] Health Maintenance Due Date Last Done Comments [...] 2022- season) 2023 Influenza Vaccine (FLU shot) (Season [...] Discussed due to patient's condition Care Teams Meat Cutter Apprentice Relationship Specialty Start Date End Date Keegan Felipe MD [address] [place] [address] [place] [address] PCP - General Family Medicine 03/27/14 documented as of this encounter
--- OUTSIDE RECORDS SUMMARY | 2024-03-16 07:12 | External Medical Summary | Summary of Care ---
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*; Other age-related cataract of both eyes Allergies Active Allergy Reactions Criticality Noted Date Comments Salicylates 09/06/2006 Asprin - hives Bee Stings Hives 05/11/2010 Oxycodone 09/07/2023 Penicillins Anaphylaxis High 09/06/2006 documented as of this encounter (statuses as of 10/28/2023) Medications Medication Sig Dispensed Refills Start Date End Date Status DAILY MULTIVITAMIN PO TABS 1 tab daily 0 Active Atenolol 25 MG Oral Tablet (Tenormin)Indicati ons:HTN, goal below 140/90 TAKE 1 TABLET BY MOUTH EVERY DAY 90 Tablet 0 02/14/2023 Active Warfarin Sodium 1 MG Oral Tablet (Coumadin)Indicati ons:Portal vein thrombosis,Anticoa gulation 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,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 Mood and affect: normal POST-RETINA SURGERY NOTE: HPI: Ann Portillo is a 77 year old female s/p retinal surgery. Nursing Notes: Sarahi Quinn, MED ASSIST 10/28/23 1202 Signed Ann Portillo presents for p/o check. Patient's name preference, 'Ann'. Last visit: 10/14/2023 Are you a diabetic? No 1 week post-op RD repair OS Surgical eye LEFT EYE Pt denies complaints Are you taking the drops as directed? Yes Did you wear eye shield to bed, slept on unaffected side and avoid bending over and heavy lifting? No reports was not given an eye shield Phenylephrine Hydrochloride 2.5% and Tropicamide Ophthalmic Solution 1% inserted into Left eye 11:[address]? no. Patient advised not to drive while eye's are dilated or vision is blurred. Pt/Family verbalizes understanding. Base Eye Exam Visual Acuity (Snellen - Linear) Right Left Dist sc 20/50 -2 HMO Dist ph sc 20/40 -1 Tonometry (Tonopen, 12:02 PM) Right Left Pressure 10 14 Pupils Dark Shape React APD Right 4 Round Minimal None Left 6 Round Minimal None Visual Jones (Counting fingers) Right Left Full Restrictions Total superior temporal, inferior temporal, superior nasal, inferior nasal deficiencies Extraocular Movement Right Left Full, Ortho Full, Ortho Neuro/Psych Oriented x3: Yes Mood/Affect: Normal Dilation Both eyes: 0.5% Proparacaine @ 12:00 PM Slit Lamp and Fundus Exam External Exam Right Left External Normal Normal Slit Lamp Exam Right Left Lids/Lashes Normal Normal Conjunctiva/Sclera White and quiet White and quiet Cornea Clear Clear Anterior Chamber Deep and quiet Deep and quiet Iris Dilated, normal Dilated, normal Lens 2+ Nuclear sclerosis 2+ Nuclear sclerosis, Gas PSC Fundus Exam Right Left Vitreous s/[p PPV, 80 % gas 16%C3F8 Disc Normal C/D Ratio 0.3 Macula attached Vessels Normal Periphery Tear at 12 with laser, inferior heavy laser A/P: 1. 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 -Cataract is very significant -Patient is to f/u immediately if she develops worsening redness, eye pain, decrease in vision, nausea/vomiting, or discharge from eye, as these could be signs of an infection or increased pressure. Follow Up: Return in about 1 month (around 11/27/2023). Ronny Grewal MD documented in this encounter Nursing Notes * Sarahi Quinn MED ASSIST - 10/28/2023 11:52 AM EDT Ann Portillo presents for p/o check. Patient's name preference, 'Ann'. Last visit: 10/14/2023 Are you a diabetic? No 1 week post-op RD repair OS Surgical eye LEFT EYE Pt denies complaints Are you taking the drops as directed? Yes Did you wear eye shield to bed, slept on unaffected side and avoid bending over and heavy lifting? No reports was not given an eye shield Phenylephrine Hydrochloride 2.5% and Tropicamide Ophthalmic Solution 1% inserted into Left eye 11:[address]? no. Patient advised not to drive while eye's are dilated or vision is blurred. Pt/Family verbalizes understanding. 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
--- OUTSIDE RECORDS SUMMARY | 2024-03-16 07:12 | External Medical Summary | Summary of Care ---
Author Name Unknown Organization [facility] Address [address] [facility] [place] [address] Phone [phone] Care Team Providers Care Research Development Director Name Role Phone Keegan Felipe MD Primary Care Provide r Reason for Visit * Reason Comments Post-Op 1 month post op Encounter Details Date Type Department Care Team (Latest Contact Info) Description 12/09/2023 11:00 AM EDT Office Visit Ophthalmology, [facility] 132 [facility] [place] [address] Ronny Grewal MD [address] [...] as of this encounter (statuses as of 12/09/2023) Medications Medication Sig Dispensed Refills Start Date [...] as of this encounter (statuses as of 12/09/2023) Active Problems Problem Noted Date Diagnosed Date [...] as of this encounter (statuses as of 12/09/2023) Resolved Problems Problem Noted Date Diagnosed Date Resolved Date Hepatic cirrhosis 04/09/2009 10/28/2022 General medical exam 12/18/200804/10/ 009 Urinary tract infection 10/14/200807/2008 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 [place] Nursing notes reviewed. Mood and affect: normal POST-RETINA SURGERY NOTE: HPI: Ann Portillo is a 77 year old female s/p retinal surgery. Nursing Notes: Sarahi Quinn, MED ASSIST 12/09/23 1113 Signed Ann Portillo presents for p/o check. Patient's name preference, 'Ann'. Last visit: 11/25/2023 Are you a diabetic? No 1 month post-op s/p PPV for recurrent RD w/PVR OS Surgical eye- LEFT EYE Pt denies complaints Have you finished taking the prescribed drops? Yes Phenylephrine Hydrochloride 2.5% and Tropicamide Ophthalmic Solution 1% inserted into both eye 11:[address]? no. Patient advised not to drive while eye's are dilated or vision is blurred. Pt/Family verbalizes understanding. . Base Eye Exam Visual Acuity (Snellen - Linear) Right Left Dist sc 20/80 -1 HMO Dist ph sc 20/40 Tonometry (Tonopen, 11:11 AM) Right Left Pressure 18 13 Pupils Pupils Right PERRL Left PERRL Visual Jones (Counting fingers) Right Left Full Restrictions Total superior temporal, inferior temporal, superior nasal, inferior nasal deficiencies Extraocular Movement Right Left Full, Ortho Full, Ortho Neuro/Psych Oriented x3: Yes Mood/Affect: Normal Dilation Both eyes: 0.5% Proparacaine @ 11:10 AM Dilation #2 Both eyes: 1.0% Mydriacyl, 2.5% Phenylephrine @ 11:[address] A/P: 1. S/P PPV/EL/MP/C3F8 16% for recurrent [...] gas resolved -Continue face down while sleeping -Cataract is very significant, recommend eval with Dr. Estrada -Patient is to f/u immediately if she develops worsening redness, eye pain, decrease in vision, nausea/vomiting, or discharge from eye, as these could be signs of an infection or increased pressure. Follow Up: Return for DFE, OS, 4-6 wks. | For: DFE, OS, 4-6 wks Ronny Grewal MD documented in this encounter Nursing Notes * Sarahi Quinn, MED ASSIST - 12/09/2023 11:04 AM EDT Ann Ann Bandar presents for p/o check. Patient's name preference, 'Ann'. Last visit: 11/25/2023 Are you a diabetic? No 1 month post-op s/p PPV for recurrent RD w/PVR OS Surgical eye- LEFT EYE Pt denies complaints Have you finished taking the prescribed drops? Yes Phenylephrine Hydrochloride 2.5% and Tropicamide Ophthalmic Solution 1% inserted into both eye 11:[address]? no. Patient advised not to drive while eye's are dilated or vision is blurred. Pt/Family verbalizes understanding. . documented in this encounter Plan of Treatment Upcoming Encounters Date Type Department Care Team (Late st Contact Info) Description 12/12/2023 11:20 AM EDT Anticoagulation Pharmacy, [address] [place] [address] [place] [address] 01/20/2024 4:00 PM EDT Telemedicine Family Medicine [address] [place] [phone] Keegan Felipe MD [address] [place] [address] [place] [address] 01/27/2024 12:00 PM EDT Office Visit Ophthalmology, [facility] 132 [facility] [place] [address] Ronny Grewal MD [address] [facility] [address] [place] [address] 04/05/2024 10:00 AM EDT Office Visit Ophthalmology, [facility] 132 [facility] [place] [address] Martell Estrada DO [address] [place] [address] Scheduled Orders Name Type Priority Associated Diagnoses Orde r Schedule RETINA SCAN DIAGNOSTIC IMAGE, POSTERIOR Procedures Routine 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
--- OUTSIDE RECORDS SUMMARY | 2024-03-16 07:12 | External Medical Summary | Summary of Care ---
Author Name Unknown Organization [facility] Address [address] [facility] [address] Phone [phone] Care Team Providers Care Quality Manager Name Role Phone Keegan Felipe MD Primary Care Provide r Reason for Visit * Reason Comments Appointment Encounter Details Date Type Department Care Team (Latest Contact Info) Description 12/27/2023 6:10 PM EDT Anticoagulation Pharmacy, [address] [place] [address] [place] [address] Anticoagulation 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* Allergies Active Allergy Reactions Criticality Noted Date Comments Salicylates Low 09/06/2006 Asprin - hives Bee Stings Hives Low 05/11/2010 Oxycodone Other (Please comment) Medium 09/07/2023 Hallucinations Penicillins Anaphylaxis High 09/06/2006 documented as of this encounter (statuses as of 12/27/2023) Medications Medication Sig Dispensed Refills Start Date [...] as of this encounter (statuses as of 12/27/2023) Active Problems Problem Noted Date Diagnosed Date [...] as of this encounter (statuses as of 12/27/2023) Resolved Problems Problem Noted Date Diagnosed Date Resolved Date Hepatic cirrhosis 04/09/2009 10/28/2022 General medical exam 12/18/2008 009 Urinary tract infection 10/14/20080 07/2008 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 appointment for coag management. [facility] message sent --no Clinic will follow up again in 1 week(s). Thank you, Lisa Heard Advanced Solutions [employer] [facility] 12/27/2023,9:42 AM documented in this encounter Plan of Treatment Upcoming Encounters Date Type Department Care Team (Late st Contact Info) Description 01/02/2024 6:10 PM EDT Anticoagulation Pharmacy, [address] [place] [address] [place] [address] 01/20/2024 4:00 PM EDT Telemedicine Family Medicine [address] [place] [phone] Keegan Felipe MD [address] [place] [address] [place] [address] 01/26/2024 1:30 PM EDT Office Visit Ophthalmology, [facility] 132 [facility] [place] [address] Martell Estrada, DO 21 [place] [address] 01/27/2024 12:00 PM EDT Office Visit Ophthalmology, [facility] 132 [facility] [place] [address] Ronny Grewal MD [address] [place] [address] 04/05/2024 10:00 AM EDT Office Visit Ophthalmology, [address] [place] [address] Martell Estrada, DO [address] [place] [address] Health Maintenance Due Date Last Done Comments DXA Scan 1945 Albumin/Creatinine Ratio 12/04/1965 Zoster Vaccines (1 of 2) 12/04/1997 Hepatitis B (1 of 3 - Risk 3-dose series) 2007 Pneumococcal Vaccine: 65+ Years (2 of 2 - PCV) 06/04/2010 06/04/2009 Colonoscopy 12/01/2014 12/02/2011, 11/09, 01/14/2009, Additional history exists Depression Screening 07/19/2019 07/19/2018 GFR 10/13/2022 10/13/2021, 04/11, 10/31/2013, Additional history exists COVID-19 Vaccine (2022-24 season) 2023 Influenza Vaccine (FLU shot) (Season [...] Discussed due to patient's condition Care Teams Quality Manager Relationship Specialty Start Date End Date Keegan Felipe MD [address] [address] [place] [address] PCP - General Family Medicine 03/27/14 documented as of this encounter
--- OUTSIDE RECORDS SUMMARY | 2024-03-16 07:12 | External Medical Summary | Summary of Care ---
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*; Other age-related cataract of both eyes Allergies Active Allergy Reactions Criticality Noted Date Comments Salicylates 09/06/2006 Asprin - hives Bee Stings Hives 05/11/2010 Oxycodone 09/07/2023 Penicillins Anaphylaxis High 09/06/2006 documented as of this encounter (statuses as of 12/07/2023) Medications Medication Sig Dispensed Refills Start Date End Date Status DAILY MULTIVITAMIN PO TABS 1 tab daily Active Warfarin Sodium 1 MG Oral Tablet (Coumadin)Indicati ons:Portal vein thrombosis,Anticoa gulation 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,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 Take [...] as of this encounter (statuses as of 12/07/2023) Active Problems Problem Noted Date Diagnosed Date [...] as of this encounter (statuses as of 12/07/2023) Resolved Problems Problem Noted Date Diagnosed Date Resolved Date Hepatic cirrhosis 04/09/2009 10/28/2022 General medical exam 12/18/2008 009 Urinary tract infection 10/14/200807/2008 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 Mood and affect: normal POST-RETINA SURGERY NOTE: HPI: Ann Portillo is a 77 year old female s/p retinal surgery. Nursing Notes: Sarahi Quinn, MED ASSIST 11/25/23 1300 Signed Ann Portillo presents for p/o check. Patient's name preference, 'Ann '. Last visit: 10/28/2023 Are you a diabetic? No 1 month post-op retinal repair with vitrectomy Surgical eye- LEFT EYE Pt complains of 1 month f/u; pt reports feels like film over OS; Have you finished taking the prescribed drops? Yes Phenylephrine Hydrochloride 2.5% and Tropicamide Ophthalmic Solution 1% inserted into Left eye 12:[address]? Yes, but has not yet since her eye problem started Patient advised not to drive while eye's are dilated or vision is blurred. Pt/Family verbalizes understanding. . Base Eye Exam Visual Acuity (Snellen - Linear) Right Left Dist sc 20/50 -1 HMO Dist ph sc 20/40 -1 Tonometry (Tonopen, 1:00 PM) Right Left Pressure 12 8 Pupils Dark Shape React APD Right 4 Round Minimal None Left 5 Round Minimal None Visual Jones (Counting fingers) Right Left Full Restrictions Total superior temporal, inferior temporal, superior nasal, inferior nasal deficiencies Extraocular Movement Right Left Full, Ortho Full, Ortho Neuro/Psych Oriented x3: Yes Mood/Affect: Normal Dilation Both eyes: 0.5% Proparacaine @ 12:58 PM Dilation #2 Left eye: 1.0% Mydriacyl, 2.5% Phenylephrine @ 12:59 PM Dilation Comments Patient cautioned that effects of dilation may last 2-7 hours dependant upon individual reaction. It was discussed that driving while dilated is not recommended. Slit Lamp and Fundus Exam External Exam Right Left External Normal Normal Slit Lamp Exam Right Left Lids/Lashes Normal Normal Conjunctiva/Sclera White and quiet White and quiet Cornea Clear Clear Anterior Chamber Deep and quiet Deep and quiet Iris Dilated, normal Dilated, normal Lens 2+ Nuclear sclerosis 3+ Nuclear sclerosis, Gas PSC Fundus Exam Right Left Vitreous s/[p PPV, 60 % gas 16%C3F8 Disc Normal C/D Ratio 0.3 Macula attached Vessels Normal Periphery Tear at 12 with laser, inferior heavy laser A/P: 1. S/P PPV/EL/MP/C3F8 16% for recurrent RD w/ PVR OS -surgery date: 10/20/2023 --Uri -h/o PPV/EL/C3F8 16% for RD OS 09/07/2023 -IOP wnl; no infection; retina appears flat -No heavy lifting/pushing/pulling/bending below waist -XS Tylenol [...] or increased pressure. Follow Up: Return for will call to schedule. | For: will call to schedule Ronny Grewal MD documented in this encounter Nursing Notes * Sarahi Quinn MED ASSIST - 11/25/2023 12:51 PM EDT Ann Portillo presents for p/o check. Patient's name preference, 'Ann '. Last visit: 10/28/2023 Are you a diabetic? No 1 month post-op retinal repair with vitrectomy Surgical eye- LEFT EYE Pt complains of 1 month f/u; pt reports feels like film over OS; Have you finished taking the prescribed drops? Yes Phenylephrine Hydrochloride 2.5% and Tropicamide Ophthalmic Solution 1% inserted into Left eye 12:[address]? Yes, but has not yet since her eye problem started Patient advised not to drive while eye's are dilated or vision is blurred. Pt/Family verbalizes understanding. . documented in this encounter Plan of Treatment Upcoming Encounters Date Type Department Care Team (Late st Contact Info) Description 12/09/2023 11:00 AM EDT Office Visit Ophthalmology, [facility] 132 [facility] [place] [address] Ronyn Grewal MD [address] [facility] [address] [place] [address] 12/12/2023 11:20 AM EDT Anticoagulation Pharmacy, [address] [place] [address] [place] [address] 01/20/2024 4:00 PM EDT Telemedicine Family Medicine [address] [place] [phone] Keegan Felipe MD [address] [place] [address] [place] [address] 04/05/2024 10:00 AM EDT Office Visit Ophthalmology, [facility] [address] [facility] [place] [address] Martell Estrada, 21 [facility] [place] [address] Scheduled Orders Name Type Priority Associated Diagnoses Orde r Schedule RETINA SCAN DIAGNOSTIC IMAGE, POSTERIOR Procedures Routine 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
--- OUTSIDE RECORDS SUMMARY | 2024-03-16 07:12 | External Medical Summary | Summary of Care ---
Author Name Unknown Organization [facility] Address [address] [facility] [address] Phone [phone] Care Team Providers Care Distresser Name Role Phone Keegan Felipe MD Primary Care Provide r Reason for Visit * Reason Onset Date Comments TRIAGE 09/06/2023 Encounter Details Date Type Department Care Team (Late st Contact Info) Description 09/06/2023 Telephone Family Medicine [address] [phone] Keegan Felipe MD [address] [place], [place] [address] [address] TRIAGE Allergies Active Allergy Reactions Criticality Noted Date Comments Salicylates 09/06/2006 Asprin - hives Bee Stings Hives 05/11/2010 Oxycodone 09/07/2023 Penicillins Anaphylaxis High 09/06/2006 documented as of this encounter (statuses as of 12/06/2023) Medications Medication Sig Dispensed Refills Start Date End Date Status DAILY MULTIVITAMIN PO TABS 1 tab daily Active Warfarin Sodium 1 MG Oral Tablet (Coumadin)Indicati ons:Portal vein thrombosis,Anticoa gulation 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,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 Gracie * Telephone Encounter - Candida Mars RN - 09/06/2023 12:44 PM EST Could someone please call and obtain records? Thank you! * Telephone Encounter - Jaky Odom OSA - 09/06/2023 12:23 PM EST June from Dr Josue Benjamin office calling to schedule same day appointment for patient has a retinadetachment. Whoever he was speaking to was seeing if Dr Cuello is available, was to be Dr Grewal. Spoke to Candida but June's call was lost. documented in this encounter Plan of Treatment Upcoming Encounters Date Type Department Care Team (Late st Contact Info) Description 12/09/2023 11:00 AM EDT Office Visit Ophthalmology, [address] [place] [address] Ronny Grewal MD [address] [place] [address] 12/12/2023 11:20 AM EDT Anticoagulation Pharmacy, [address] [place] [address] [place] [address] 01/20/2024 4:00 PM EDT Telemedicine Family Medicine [address] [place] [phone] Keegan Felipe MD [address] [place] [address] [place] [address] 04/05/2024 10:00 AM EDT Office Visit Ophthalmology, [facility] [address] [facility] [place] [address] Martell Estrada DO [address] [facility] [place] [address] Health Maintenance Due Date Last Done Comments [...] Discussed due to patient's condition Care Teams Distresser Relationship Specialty Start Date End Date Keegan Felipe MD [address] [place] [address] [place] [address] PCP - General Family Medicine 03/27/14 documented as of this encounter
--- OUTSIDE RECORDS SUMMARY | 2024-03-16 07:12 | External Medical Summary | Summary of Care ---
Author Name Unknown Organization [facility] Address [address] [facility] [place] [address] Phone [phone] Care Team Providers Care Pilot Supervisor Name Role Phone Keegan Felipe MD Primary Care Provide r Reason for Visit * Reason Comments Dosage Adjustment In Person (Anticoag Cl inic) Encounter Details Date Type Department Care Team (Latest Contact Info) Description 11/10/2023 9:40 AM EDT Anticoagulation Pharmacy, [address] [place] [address] [place] [address] Anticoagulation 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*; Portal vein thrombosis Allergies Active Allergy Reactions Criticality Noted Date Comments Salicylates 09/06/2006 Asprin - hives Bee Stings Hives 05/11/2010 Oxycodone 09/07/2023 Penicillins Anaphylaxis High 09/06/2006 documented as of this encounter (statuses as of 11/10/2023) Medications Medication Sig Dispensed Refills Start Date End Date Status DAILY MULTIVITAMIN PO TABS 1 tab daily 0 Active Warfarin Sodium 1 MG Oral Tablet (Coumadin)Indicati ons:Portal vein thrombosis,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 5 mL 0 10/28/2023 Active Atenolol 25 MG Oral Tablet (Tenormin)Indicati ons:HTN, goal below 140/90 Take 1 Tablet by mouth in the morning. 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 1 Overview: ICD-10 update of inactive term documented as of this encounter (statuses as of 11/10/2023) Immunizations Name Administration Dates Next Due Diptheria/Tetanus [...] Progress Notes * Amanda Kim RPh - 11/10/2023 9:39 AM EDT Medication Therapy Disease Management - Anticoagulation Patient: Ann Portillo | : 1945 Subjective Patient-Reported Symptoms: Patient Findings Negatives: Signs/symptoms of thrombosis, Signs/symptoms of bleeding, Change in health, Change in alcohol use, Change in activity, Upcoming invasive procedure, Missed doses, Extra doses, Change in medications, Change in diet/appetite, Bruising Objective Current Warfarin Dose As of 11/10/2023 Warfarin maintenance plan: 2 mg (1 mg x 2) every Mon, Fri; 1 mg (1 mg x 1) all other days INR Result As of 11/10/2023 INR goal: 2.0-2.5 INR used for dosin.0 (11/10/2023) Assessment & Plan Warfarin Plan As of 11/10/2023 Full warfarin instructions: 2 mg every Mon, Fri; 1 mg all other days No change documented: Amanda Kim RPh Next INR check: 12/12/2023 Repeat PT/INR in 4 week(s) Weekly dose: not changed Additional Dosing Information: Description Takes in AM Amanda Kim RPh Clinical Pharmacist 11/10/2023, 9:39 AM documented in this encounter Plan of Treatment Upcoming Encounters Date Type Department Care Team (Late st Contact Info) Description 11/25/2023 12:45 PM EDT Office Visit Ophthalmology, [facility] [address] [facility] [place] [address] Ronny Grewal MD [address] [place] [address] 12/12/2023 11:20 AM EDT Anticoagulation Pharmacy, [address] [place] [address] [place] [address] 01/20/2024 4:00 PM EDT Telemedicine Family Medicine [address] [place] [phone] Keegan Felipe MD [address] [place] [address] [place] [address] Scheduled Orders Name Type Priority Associated Diagnoses Orde r Schedule PT INR Lab Routine Portal vein thrombosis Anticoagulation 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 26 Occurrences starting 11/10/2023 until 11/09/2024 INR FINGERSTICK, POINT OF CARE Point of Care Testing - Unsolicited Results STAT Portal vein thrombosis Anticoagulation 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 Every 2 Weeks for 26 Occurrences starting 11/10/2023 until 11/09/2024, 1 completed Health Maintenance Due Date Last Done Comments [...] ( season) 2023 Influenza Vaccine (FLU shot) (Season [...] Procedure Name Priority Date/Time Associated Diagnosis Comments INR FINGERSTICK, POINT OF CARE STAT 11/10/2023 9:42 AM EDT Portal vein thrombosis Anticoagulation 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 documented in this encounter Results * INR FINGERSTICK, POINT OF CARE (11/10/2023 9:42 AM EDT) Fingerstick INR 2.0 INR 9:44 AM EDT [facility] Blood 11/10/2023 9:42 AM EDT 11/10/2023 9:44 AM EDT Narrative [facility] - 11/10/2023 9:44 AM EDT Therapeutic ranges for non-operative patients: Prophylaxsis/treatment of DVT: (Range:2.0-3.0) Treatment of pulmonary embolism:(Range:2.0-3.0) Prevention of systemic embolism from: -tissue heart valves -acute myocardial infarction -valvular heart disease -atrial fibrillation (Range: 2.0-3.0) Mechanical prosthetic valves: (Range: 2.5-3.5) Amanda Kim h LAB POINT OF CARE TEST DOCKED DEVICE UNSOLICITED RESULTS [facility] [place] [address] [place] [address] documented in this encounter Visit Diagnoses Diagnosis Anticoagulation 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- Primary Encounter for therapeutic drug monitoring Portal vein thrombosis documented in this encounter Advance Directives Latest [...] Discussed due to patient's condition Care Teams Pilot Supervisor Relationship Specialty Start Date End Date Keegan Felipe MD [address] [place] [address] [place] [address] PCP - General Family Medicine 03/27/14 documented as of this encounter"
--- OUTSIDE RECORDS SUMMARY | 2024-03-16 07:12 | External Medical Summary | Summary of Care ---
Author Name Unknown Organization [facility] Address [address] [facility] [place] [address] Phone [phone] Care Team Providers Care Rn Diabetes Educator Name Role Phone Keegan Felipe MD Primary Care Provide r Reason for Visit * Reason Onset Date Comments Procedure 10/18/2023 Encounter Details Date Type Department Care Team (Late st Contact Info) Description [facility] [address] [place] [address] [place] [address] [place] [address] Procedure Allergies Active Allergy Reactions Criticality Noted Date Comments Salicylates 09/06/2006 Asprin - hives Bee Stings Hives 05/11/2010 Oxycodone 09/07/2023 Penicillins Anaphylaxis High 09/06/2006 documented as of this encounter (statuses as of 10/18/2023) Medications Medication Sig Dispensed Refills Start Date End Date Status DAILY MULTIVITAMIN PO TABS 1 tab daily 0 Active Atenolol 25 MG Oral Tablet (Tenormin)Indicati ons:HTN, goal below 140/90 TAKE 1 TABLET BY MOUTH EVERY DAY 90 Tablet 0 02/14/2023 Active Warfarin Sodium 1 MG Oral Tablet (Coumadin)Indicati ons:Portal vein thrombosis,Anticoa gulation 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,alf current use of anticoagulant therapy Take 1 -2 tablets by mouth daily as directed by anticoagulation clinic 180 Tablet 3 03/01/2023 Active prednisoLONE Acetate 1 % Ophthalmic Suspension (Pred Forte) Instill 1 Drop into the left eye in the morning and 1 Drop at noon and 1 Drop in the evening and 1 Drop before bedtime. 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 Agreeable to have patient obtain INR prior to procedure to ensure therapeutic range. Patient Phone Numbers Called and spoke with patient. Declines coming in for INR check prior to 10/[address] Grewal. Will plan to HOLD warfarin today and tomorrow and recheck INR day of procedure. Will keep [facility] appointment as previously scheduled on 10/30. Reviewed with patient who expressed understanding. Amanda Kim RPh, PharmD Clinical Pharmacist - Agricultural Services Director Medication Therapy Disease Management [facility] 10/18/2023, 12:45 PM Ph.[phone] * Telephone Encounter - Gurinder Talbert PHARM Tech - 10/18/2023 8:27 AM EDT Caller's name: Ann Schroeder call back number(OFFICE NUMBER FOR ): [phone] Reason for call: Questions about Coumadin/ Lovenox dosing: Pt having eye surgery on 10/20/23 Thank you, Gurinder Talbert [facility] Contact Lens Inspector [email or web address] 10/18/2023,8:27 AM documented in this encounter Plan of Treatment Upcoming Encounters Date Type Department Care Team (Late st Contact Info) Description 10/20/2023 3:00 PM EDT Hospital Encounter OR GM, Operating Room, [facility] 3rd Floor [address] [place] [address] Ronny Grewal MD [address] [place] [address] 10/20/2023 3:00 PM EDT - 10/20/2023 4:40 PM EDT Surgery OR [facility], Operating Room, [facility] 3rd Floor [address] [facility] [place] [address] Ronny Grewal MD [address] [facility] [address] [place] [address] LEFT REPAIR RETINAL DETACHMENT WITH VITRECTOMY 10/21/2023 10:30 AM EDT Office Visit Ophthalmology, [facility] [address] [place] [address] Trent Christiansen, [address] [place] [address] 10/27/2023 10:45 AM EDT Office Visit Ophthalmology, [facility] [address] [place] [address] Ronny Grewal MD [address] [place] [address] 10/31/2023 10:30 AM EDT Anticoagulation Pharmacy, [address] [place] [address] [place] [address] 10/31/2023 11:00 AM EDT Office Visit Family Medicine [address] [place] [phone] Keegan Felipe MD [address] [place] [address] [place] [address] Scheduled Procedures Name Priority Associated Diagnoses Date/Ti me REPAIR RETINAL DETACHMENT WITH VITRECTOMY 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 Question Answer Comments Discussion of Advance Directives occurred with: Not Discussed due to patient's condition Care Teams Rn Diabetes Educator Relationship Specialty Start Date End Date Keegan Felipe MD [address] [place] [address] [place] [address] PCP - General Family Medicine 03/27/14 documented as of this encounter
--- OUTSIDE RECORDS SUMMARY | 2024-03-16 07:12 | External Medical Summary | Summary of Care ---
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 [H33.002] Procedures REPAIR DETACHED RETINA, VITRECTOMY LEFT REPAIR RETINAL DETACHMENT WITH VITRECTOMY Ronny Grewal MD [address] [address] Or [facility] [address] [place] [address] Referral ID Status Reason Start Date Expiration Date Visits Re quested Visits Authorized [id number] Encounter Details Date Type Department Care Team (Latest Contact Info) Description 10/20/2023 12:11 PM EDT - 10/20/2023 5:04 PM EDT Hospital Encounter OR [facility], Operating Room, [facility] 3rd Floor [address] [place] [address] Ronny Grewal MD [address] [place] [address] Discharge Disposition: Home - Self Care Allergies [...] (Coumadin)Indicati ons:Portal vein thrombosis,Anticoa 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,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 Take 1 [...] Sign Reading Time Taken Comments Blood Pressure 126/72 10/20/2023 5:00 PM EDT Pulse 65 10/20/2023 5:00 PM EDT Temperature 36.3 C (97.3 F) 10/20/2023 4:30 PM ED T Respiratory Rate 15 10/20/2023 4:45 PM EDT Oxygen Saturation 97% 10/20/2023 5:00 PM EDT Inhaled Oxygen Concentration - - Weight 95.3 kg (210 lb) 10/17/2023 2:00 PM EDT Height 162.6 cm (5' 4") 10/17/2023 2:00 PM EDT Body Mass Index 36.05 10/17/2023 2:00 PM EDT documented in this encounter Discharge Instructions * Discharge Instr - AVS* Ronny Grewal MD - 10/20/2023 4:32 PM EDT Please contact your physician at [phone] with any concerns or questions. After 5:00 p.m. or ont, call the [facility] Emergency Room at and ask for the kettle girl senior telecommunications consultant.Scheduling Services is available daily between the hours of 8:00 a.m. and 9:00 p.m. by calling . Your attending physician at the time of your discharge was: Ronny Grewal MD [address] [facility] [address] [place] [address] The information below provides you with the [...] No Driving. Follow Up - Return appointment(s): 1030 at [facility] with Dr. Christiansen Special Instructions: - Face down as much as possible today - Sleep on your left side - Starting tomorrow face down or on your left side 45-50 minutes out of every hour HOME INSTRUCTIONS AFTER RETINAL OR VITREOUS SURGERY [...] (SHAKE) X (SHAKE) X (SHAKE) X (SHAKE) Atropine (red top) X X To instill eye drops, tilt head back, [...] DO NOT HESITATE TO CALL US AT [phone] AT ANY TIME After 5:00 p.m. or on the weekend, call the [facility] Emergency Room at and ask for the kettle girl senior telecommunications consultant. 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 H33.002 Surgery: left eye RD repair Pt examined and medically cleared for discharge Ronny Grewal MD 10/20/2023 4:32 PM documented in this encounter H&P Notes * Ronny Grewal MD - 10/20/2023 2:59 PM EDT HISTORY & PHYSICAL INTERVAL NOTE [place] [address] [facility] [address] History and Physical Update: Name: Ann Portillo Location: [facility]/DE Date: 10/20/2023 Time: 2:59 PM DATE OF HISTORY AND PHYSICAL: 10/20/23 BP: 148 mmHg/73 mmHg (10/20/231246) Pulse: 56 (10/20/231246) Temp: 36 C (10/20/231246) Temp Summary: Temp Min: 36 C (96.8 F) Max: 36 C (96.8 F) SpO2: 97 % (10/20/231246) O2 flow rate: Supplemental O2 Delivery: Room Air, None (10/20/231246) I have reviewed the H&P previously performed and examined the patient today. There are no new findings noted. left eye today * Ronny Grewal MD - 10/20/2023 1:52 PM EDT History and Physical 10/20/2023 Ann Portillo is a 77 year old female who presents for RD [...] Drop 1 Drop Left eye Q5 Minutes Ronyn Grewal MD 1 Drop at 09/07/23 1131 [...] GI) performed by MARIANGEL RAMACHANDRAN at ENDOSCOPY [facility] BREAST SURGERY PROCEDURE NEC left, benign COLONOSCOPY W/ LESION REMOVAL, SNARE 01/24/08 villous polyp--repeat 1 year COLONOSCOPY, DIAGNOSTIC (RECTUM) 12/02/2011 COLONOSCOPY FLEXIBLE PROXIMAL DIAGNOSTIC performed by JOSE ANGEL JEFFREY at ENDOSCOPY [facility] COLORECTAL CANCER SCREEN; COLON 01/14/09 repeat in 3 yrs EGD, FLEXIBLE, DIAGNOSTIC 10/22/08 2 shallow healing pre-pyloric ulcers, bx show no h. pylori EGD, FLEXIBLE, DIAGNOSTIC 04/06/2010 done mild portal gastropathy REPEAT IN 2 YEARS EGD, FLEXIBLE, DIAGNOSTIC 03/22/2013 UPPER GI ENDOSCOPY DIAGNOSTIC performed by Jose Angel Jeffrey MD at ENDOSCOPY [facility] EGD, FLEXIBLE, W/BIOPSY 01/24/08 H.Pylori RIGHT HEART CATHETERIZATION 01/17/09 RIGHT HEART CATH performed by JALEN LAKE at CARDIAC LABS [facility] TOTAL ABD HYSTERECTOMY W/WO REMOVAL OF TUBE(S) 1999 due to endometrious Family History: Non-Contributory Social History Socioeconomic History Marital status: Spouse name: Emeka Number of children: 2 Years of education: 12 Highest education level: Not on file 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 History 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 Employer: [employer] Tobacco Use Smoking status: Never Smokeless tobacco: [...] in eye vitals in initial encounter BP 171/70 | Pulse 67 | Temp 36.8 C (98.2 F) (Tympanic) | Resp 18 | SpO2 97% Physical Exam Constitutional: Pt [...] RD repair OS MD Ronny Mohr MD 10/20/2023 1:52 PM documented in this encounter Nursing Notes * Johny Munroe RN - 10/18/2023 9:06 AM EDT PREOP PATIENT INFORMATION AND EDUCATION: MEDICATION INSTRUCTIONS: The day of surgery/procedure, you may TAKE the following medications with a sip of water up to 2 hours prior to your arrival time: Atenolol AVOID / DO NOT TAKE the following medications the morning of surgery/procedure: NO Coumadin STOP taking the following medications the noted number of days prior to surgery/procedure unless otherwise specified by your surgeon: Coumadin per pharmacist instructions Please follow surgeon's instructions regarding use of [...] by your surgical service take as directed. Infant/pediatric patients who currently drink breast milk, formula, [...] deodorants after bathing. No hairspray, or nail [facility] on fingers or toes. Day of surgery/procedure [...] name and bring to hospital. -An escort driver helper is required if you are being discharged [...] taxi home, you must have your responsible green party accompany you in the taxi ride [...] is important to make arrangements for a driver helper to take you home. Please be aware our visitation policies are subject to change Professionals, attendants, caregivers or family members are allowable visitors for patients with intellectual, developmental or cognitive disabilities, communication barriers or behavioral concerns. Because patients' and families' needs vary, they will be taken into account when applying visitation restrictions. [place] [address] [address] [place] [address] Contact#: [phone] You will be called by the [facility] [...] by the staff. THANK YOU FOR CHOOSING [facility]! documented in this encounter OR Notes * OR Surgeon - Ronny Grewal MD - 10/20/2023 4:28 PM EDT OPERATIVE RECORD Name: Ann Portillo Date: 10/20/2023 Location: [facility] Service: Ophthalmology Pre-op Diagnosis: left eye Retinal tear 2. Recurrent retinal detachment Post-op Diagnosis: Retinal tear 2. Retinal detachment 3. Proliferative vitreoretinopathy NAME OF PROCEDURES: left eye 1. Pars plana vitrectomy 2. Complex retinal detachment repair 3. Membrane peel 4. 16 % C3F8 gas injection Complications: None. Estimated Blood Loss: Under 5 [...] any complication. The eye was prepped with double diluted 10% Betadine solution and thoroughly irrigated and dried. A sterile ophthalmic drape and speculum were placed in the eye. The 25-gauge system was used and trocars were used to make sclerotomies 3.5 - 4 mm posterior to the limbus inferotemporally, superotemporally and superonasally. The infusion line was inserted into the inferotemporal port and viewed through the pupil to ensure proper positioning in the vitreous cavity before being turned on. A complete core vitrectomy with peripheral shaving was performed. There was a previous vitrectomy but there was additional vitreous inferior. There was also some evidence of pigment on the inferior retina indicating PVR A retinal tear was isolated in the 630 o'clock position. A complete peripheral retinal examination with scleral indentation revealed prior laser from 12 to 530. The vitreous over the tear and over all other suspicious areas was meticulously removed. All preretinal membranes were peeled with the aid of a sammi scraper. The identified tear(s) and any suspicious area was marked with endodiathermy. A retinotomy was created at 7 in the midperiphery A fluid air exchange was performed with a silicone tip cannula through the retinotomy to flatten the retina by removing the subretinal fluid. The retina was found to be completely flat under air. Endolaser photocoagulation was then performed around the tears and the retinotomy. Laser was also applied along the inferior retina The air was exchanged for 16% C3F8 I removed the ports and found them to be watertight with 7-0 Vicryl. One drop of ofloxacin and prednisolone were given. The lid speculum was removed. Ophthalmic ointment, 2 patches were placed on the eye. The patient was taken to recovery in stable condition and was directed that face down positioning was necessary. Surgeon: Ronny Grewal MD Assistants: none Anesthesia: Monitored Local Anesthesia with Sedation Drains: none Estimated Blood Loss: <1 ml. IV Fluids: <500 ml. Urine Output: N/A Specimens/Disposition: None Apparent Intraoperative Complications: None Patient Condition: stable Disposition: Post Anesthesia Care Unit Attestation: I performed the procedure Ronny Grewal MD 10/20/2023 cc: Professional Reimbursement and Compliance documented in this encounter Plan of Treatment Upcoming Encounters Date Type Department Care Team (Late st Contact Info) Description 10/21/2023 10:30 AM EDT Office Visit Ophthalmology, [facility] [address] [place] [address] Trent Christiansen DO [address] [place] [address] 10/27/2023 10:45 AM EDT Office Visit Ophthalmology, [facility] [address] [facility] [address] [place] [address] Ronny Grewal MD [address] [facility] [address] [place] [address] 10/31/2023 10:30 AM EDT Anticoagulation Pharmacy, [address] [place] [address] [place] [address] 10/31/2023 11:00 AM EDT Office Visit Family Medicine [address] [place] [address] Keegan Felipe MD [address] [place] [address] [place] [address] Health Maintenance Due Date Last Done Comments [...] Priority Date/Time Associated Diagnosis Comments PT INR Routine 10/20/2023 2:34 PM EDT documented in this encounter Results * (ABNORMAL) PT INR (10/20/2023 2:34 PM EDT) Prothrombin Time 22.9(H) 11.6 - 15.2 seconds 10/20/2023 2:55 PM EDT LABORATORY [facility] INR 2.0(H) 0.8 - 1.2 10/20/2023 2:55 PM EDT LAB[facility]ATORY [facility] Blood Venous blood specimen / Unknown Venipuncture / Unknown 10/20/2023 2:34 PM EDT 10/20/2023 2:38 PM EDT Narrative LABORATORY [facility] - 10/20/2023 2:55 PM EDT Warfarin Therapy INR: 2.0-3.0 conventional anticoagulation INR: 2.5-3.5 high intensity anticoagulation Ronny Grewal MD LAB BLOOD ORDERA BLES LAB[facility]ATORY [facility] [address] documented in this encounter Visit Diagnoses Diagnosis 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- Primary 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 documented in this encounter Administered Medications Inactive Administered Medications - up to 3 most recent administrations Medication Order MAR Action Action Date Dose Rate Site atropine sulfate 1 % ophthalmic solution 1 Drop 1 Drop, Left eye, Q5 MINUTES, First dose on Tue10/20/23 at 1415, Last dose on Tue10/20/23 at 1425, For 3 doses, Begin 90 min preop, Pre-Op Given 10/20/2023 2:52 PM EDT 1 Drop Given 10/20/2023 2:38 PM EDT 1 Drop Ofloxacin (Ocuflox) 0.3 % ophthalmic solution 1 Drop 1 Drop, Left eye, Q5 MINUTES, First dose on Tue10/20/23 at 1415, Last dose on Tue10/20/23 at 1425, For 3 doses, PRE-OP: One drop to left eye every 5 minutes for 3 doses, Pre-Op Given 10/20/2023 3:01 PM EDT 1 Drop Given 10/20/2023 2:51 PM EDT 1 Drop Given 10/20/2023 2:38 PM EDT 1 Drop PHENYLephrine (Ak-Dilate) 2.5 % ophthalmic solution 1 Drop 1 Drop, Left eye, Q5 MINUTES, First dose on Tue10/20/23 at 1415, Last dose on Tue10/20/23 at 1425, For 3 doses, PRE-OP: 1 drop to left eye every 5 minutes for 3 doses, Pre-Op Given 10/20/2023 3:[address] op Given 10/20/2023 2:52 PM EDT 1 Drop Given 10/20/2023 2:38 PM EDT 1 Drop prednisoLONE Acetate (Pred Forte) 1 % ophthalmic suspension 1 Drop 1 Drop, Left eye, Q5 MINUTES, First dose on [place] 10/20/23 at 1415, Last dose on [place] 10/20/23 at 1425, For 3 doses, PRE-OP: One drop to left eye every 5 minutes for 3 doses., Pre-Op Given 10/20/2023 2:5 2 PM EDT 1 Drop Given 10/20/2023 2:37 PM EDT 1 Drop documented in this encounter Active and Recently Administered Medications Times are shown in EDT. Scheduled Medication Order 10/18/2023 10/19/2023 10/20/2023 atropine sulfate 1 % ophthalmic solution 1 Drop 1 Drop, Left eye, Q5 MINUTES, First dose on [place] 10/20/23 at 1415, Last dose on [place] 10/20/23 at 1425, For 3 doses, Begin 90 min preop, Pre-Op 1425 (Due)1438 (Give n - Provider: Sonido Olson RN)1452 (Given - Provider: Sonido Olson RN) Ofloxacin (Ocuflox) 0.3 % ophthalmic solution 1 Drop (COMPLETED) 1 Drop, Left eye, Q5 MINUTES, First dose on [place] 10/20/23 at 1415, Last dose on [place] 10/20/23 at 1425, For 3 doses, PRE-OP: One drop to left eye every 5 minutes for 3 doses, Pre-Op 1438 (Given - Provid er: Sonido Olson RN)1451 (Given - Provider: Sonido Olson RN)1501 (Given - Provider: Sonido Olson RN) PHENYLephrine (Ak-Dilate) 2.5 % ophthalmic solution 1 Drop (COMPLETED) 1 Drop, Left eye, Q5 MINUTES, First dose on [place] 10/20/23 at 1415, Last dose on [place] 10/20/23 at 1425, For 3 doses, PRE-OP: 1 drop to left eye every 5 minutes for 3 doses, Pre-Op 1438 (Given - Provid er: Sonido Olson RN)1452 (Given - Provider: Sonido Olson RN)1501 (Given - Provider: Sonido Olson RN) prednisoLONE Acetate (Pred Forte) 1 % ophthalmic suspension 1 Drop 1 Drop, Left eye, Q5 MINUTES, First dose on [place] 10/20/23 at 1415, Last dose on [place] 10/20/23 at 1425, For 3 doses, PRE-OP: One drop to left eye every 5 minutes for 3 doses., Pre-Op 1425 (Due)1437 (Give n - Provider: Sonido Olson RN)1452 (Given - Provider: Sonido Olson RN) PRN Medication Order 10/18/2023 10/19/2023 10/20/2023 bupivacaine (PF) 4.5 mL, Hyaluronidase Human 150 Units, lidocaine 2 % 4.5 mL inj (CANCELED) ONCE PRN INTRA PROCEDURE, Starting on [place] 10/20/23 at 1528, Until [place] 10/20/23 at 1628, Intra-Op 1528 (Given - Provid er: Ronny Grewal MD) DUOVISC inj KIT (CANCELED) ONCE PRN INTRA PROCEDURE, Starting on [place] 10/20/23 at 1548, Until [place] 10/20/23 at 1628, Intra-Op 1548 (Given - Provid er: Ronny Grewal MD - Comment: PRN intra-op) EPINEPHrine 0.3 mg in balanced salt solution 500 mL inj (CANCELED) ONCE PRN INTRA PROCEDURE, Starting on [place] 10/20/23 at 1547, Until [place] 10/20/23 at 1628, Intra-Op 1547 (Given - Provid er: Ronny Grewal MD - Comment: PRN intra-op) Erythromycin ophthalmic ointment (CANCELED) ONCE PRN INTRA PROCEDURE, Starting on [place] 10/20/23 at 1627, Until [place] 10/20/23 at 1628, Intra-Op 1627 (Given - Provid er: Ronny Grewal MD) Triamcinolone Acetonide (Kenalog) 40 MG/ML inj (CANCELED) ONCE PRN INTRA PROCEDURE, Starting on [place] 10/20/23 at 1548, Until [place] 10/20/23 at 1628, Intra-Op 1548 (Given - Provid er: Ronny Grewal MD) Triamcinolone Acetonide 40 mg in balanced salt solution 1 mL inj (CANCELED) ONCE PRN INTRA PROCEDURE, Starting on [place] 10/20/23 at 1631, Until [place] 10/20/23 at 1632, Intra-Op 1631 (Given - Provid er: Ronny Grewal MD - Comment: PRN intra-op) documented in this encounter Advance Directives Latest [...] Discussed due to patient's condition Care Teams Healthcare Network Pricing Consultant Relationship Specialty Start Date End Date Keegan Felipe MD [address] [place] [address] [place] [phone] PCP - General Family Medicine 03/27/14 documented as of this encounter
--- OUTSIDE RECORDS SUMMARY | 2024-03-16 07:12 | External Medical Summary | Summary of Care ---
Author Name Unknown Organization [facility] Address [address] [facility] [place] [address] Phone [phone] Care Team Providers Care Track Helper Name Role Phone Keegan Felipe MD Primary Care Provide r Reason for Visit * Reason Onset Date Comments Appointment 10/28/2023 Encounter Details Date Type Department Care Team (Late st Contact Info) Description 10/28/2023 Telephone Ophthalmology, [facility] [address] [place], [place] [id number] Ronny Grewal MD [address] [place] [address] Appointment Allergies Active Allergy Reactions Criticality Noted Date Comments Salicylates 09/06/2006 Asprin - hives Bee Stings Hives 05/11/2010 Oxycodone 09/07/2023 Penicillins Anaphylaxis High 09/06/2006 documented as of this encounter (statuses as of 11/02/2023) Medications Medication Sig Dispensed Refills Start Date [...] as of this encounter (statuses as of 11/02/2023) Active Problems Problem Noted Date Diagnosed Date [...] as of this encounter (statuses as of 11/02/2023) Resolved Problems Problem Noted Date Diagnosed Date Resolved Date Hepatic cirrhosis 04/09/2009 10/28/2022 General medical exam 12/18/2008 009 Urinary tract infection 10/14/200807/2008 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 Please contact the patient with an appointment time. Thank you. documented in this encounter Plan of Treatment Upcoming Encounters Date Type Department Care Team (Late st Contact Info) Description 11/04/2023 11:10 AM EDT Anticoagulation Pharmacy, [address] [place] [address] [place] [address] 11/25/2023 12:45 PM EDT Office Visit Ophthalmology, [facility] [address] [facility] [place] [address] Ronny Grewal MD [address] [place] [address] 01/20/2024 4:00 PM EDT Telemedicine Family [address] [place] [phone] Keegan Felipe MD [address] [place] [address] [place] [address] Health Maintenance Due Date Last Done Comments [...] Discussed due to patient's condition Care Teams Track Helper Relationship Specialty Start Date End Date Keegan Felipe MD [address] [place] [address] [place] [phone] PCP - General Family Medicine 03/27/14 documented as of this encounter
--- OUTSIDE RECORDS SUMMARY | 2024-03-16 07:13 | External Medical Summary ---
Author Name Unknown Address Unknown Organization : Laboratory Report Ordering Provider Test Date Status YOVANI FLORES 10/05/2023 10:12:16 Final Therapeutic ranges for non-o perative patients:
Prophylaxsis/treatment of DVT: (Range:2.0-3.0)
Treatment of pulmonary embolism:(Range:2.0-3.0)
Prevention of systemic embolism from:
-tissue heart valves
-acute myocardial infarction
-valvular heart disease
-atrial fibrillation
(Range: 2.0-3.0)
Mechanical prosthetic valves: (Range: 2.5-3.5) Observation Date Value Abnormality Reference (Units ) Status INR in Capillary blood by Coagulation assay 10/05/2023 10:12:16 1.8 (INR) Final Performing Location
--- OUTSIDE RECORDS SUMMARY | 2024-03-16 07:13 | External Medical Summary | Summary of Care ---
Author Name Unknown Organization [facility] Address [address] [place] [address] Phone [phone] Care Team Providers Care Hydraulic Riveter Name Role Phone Keegan Felipe MD Primary Care Provide r Encounter Details Date Type Department Care Team (Late st Contact Info) Description 10/03/2023 Telephone Access Center, [place] [address] [facility] *DO NOT REMOVE THIS DEPARTMENT* [place] [address] Services, Scheduling [address] [place] [address] Allergies Active Allergy Reactions Criticality Noted Date Comments Salicylates 09/06/2006 Asprin - hives Bee Stings Hives 05/11/2010 Oxycodone 09/07/2023 Penicillins Anaphylaxis High 09/06/2006 documented as of this encounter (statuses as of 10/03/2023) Medications Medication Sig Dispensed Refills Start Date End Date Status DAILY MULTIVITAMIN PO TABS 1 tab daily 0 Active Atenolol 25 MG Oral Tablet (Tenormin)Indicati ons:HTN, goal below 140/90 TAKE 1 TABLET BY MOUTH EVERY DAY 90 Tablet 0 02/14/2023 Active Warfarin Sodium 1 MG Oral Tablet (Coumadin)Indicati ons:Portal vein thrombosis,Anticoa gulation 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,assisted current use of anticoagulant therapy Take 1 -2 tablets by mouth daily as directed by anticoagulation clinic 180 Tablet 3 03/01/2023 Active prednisoLONE Acetate 1 % Ophthalmic Suspension (Pred Forte) Instill 1 Drop into the left eye in the morning and 1 Drop at noon and 1 Drop in the evening and 1 Drop before bedtime. 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 TELLEZ to stop once bottle finished.Denied further questions/concerns. Danii Barbour RN 10/03/2023 12:10 PM * Telephone Encounter - Leatha Espinoza OSA - 10/03/2023 10:11 AM EDT Images from the original note were not included. Prescription(s) requested for renewal: no refill needed Who is calling? patient Best way to reach patient or person calling, if call back needed by nurse or physician: [phone] Indicate what the patient is calling for: (Medication questions/clarification/making provider awarepatient is no longer taking meds etc.) patient asking how long she should be using the Prednisolonedrops Pharmacy of choice selected? No What Pharmacy does the patient use? Last appointment & Provider: Visit date not found (in office), Visit date not found (telemedicine) Next appointment & Provider: 10/14/23 - if no future appointment scheduled, review last clinic note for scheduling instructions Order(s) pended and sent to physicians for review & signature. *Person filling out this form: Once form completed, please route to: *Physicians: -If any additional instruction or more information needed, NO appointment scheduling needed, pleaseroute to p [phone] (triage nurse pool). -If instructions AND appointment needed, please route to p [phone] (triage nurse pool) and p [phone] (legal secretary receptionist pool). documented in this encounter Plan of Treatment Upcoming Encounters Date Type Department Care Team (Late st Contact Info) Description 10/07/2023 6:10 PM EDT Pharmacy Pharmacy, [address] [place] [address] [place] [address] 10/14/2023 1:00 PM EDT Office Visit Ophthalmology, [facility] [address] [facility] [place] [address] Ronny Grewal MD [address] [facility] [address] [place] [address] 10/31/2023 11:00 AM EDT Office Visit Family Medicine [address] [place] [phone] Keegan Felipe MD [address] [place] [address] [place] [address] Health Maintenance Due Date Last Done Comments [...] season) 2023 Influenza Vaccine (FLU shot) (#1) 2023 05/07/2022, 06/18/2021, 06/18/2021, Additional history exists DTaP,Tdap,and [...] Discussed due to patient's condition Care Teams Hydraulic Riveter Relationship Specialty Start Date End Date Keegan Felipe MD [address] [place] [address] [place] [address] PCP - General Family Medicine 03/27/14 documented as of this encounter
--- OUTSIDE RECORDS SUMMARY | 2024-03-16 07:13 | External Medical Summary | Summary of Care ---
Author Name Unknown Organization [facility] Address [address] [facility] 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* Allergies Active Allergy Reactions Criticality Noted Date Comments Salicylates 09/06/2006 Asprin - hives Bee Stings Hives 05/11/2010 Oxycodone 09/07/2023 Penicillins Anaphylaxis High 09/06/2006 documented as of this encounter (statuses as of 10/17/2023) Medications Medication Sig Dispensed Refills Start Date End Date Status DAILY MULTIVITAMIN PO TABS 1 tab daily 0 Active Atenolol 25 MG Oral Tablet (Tenormin)Indicati ons:HTN, goal below 140/90 TAKE 1 TABLET BY MOUTH EVERY DAY 90 Tablet 0 02/14/2023 Active Warfarin Sodium 1 MG Oral Tablet (Coumadin)Indicati ons:Portal vein thrombosis,Anticoa gulation 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,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 manager current use of anticoagulant therapy Take 1 [...] as of this encounter (statuses as of 10/17/2023) Active Problems Problem Noted Date Diagnosed Date [...] as of this encounter (statuses as of 10/17/2023) Resolved Problems Problem Noted Date Diagnosed Date Resolved Date Hepatic cirrhosis 04/09/2009 10/28/2022 General medical exam 12/18/2008 009 Urinary tract infection 10/14/200807/2008 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 Patient's name preference, 'Ann'. Last visit: 09/16/2023 Are you a diabetic? No 5 week post-op 23G PPV/EL for RD Surgical eye- LEFT EYE Pt denies complaints Have you finished taking the prescribed drops? Yes Do you drive? yes. OCT OS Nursing notes reviewed. Base Eye Exam Visual Acuity (Snellen - Linear) Right Left Dist cc 20/40 -1 20/150 -1 Dist ph cc 20/40 NI Tonometry (Tonopen, 1:21 PM) Right Left Pressure 20 15 Pupils Pupils APD Right PERRL None Left PERRL None Visual Jones (Counting fingers) Right Left Full Restrictions Partial outer superior temporal deficiency Extraocular Movement Right Left Full, Ortho Full, Ortho Neuro/Psych Oriented x3: Yes Mood/Affect: Normal Dilation Both eyes: 0.5% Proparacaine @ 1:21 PM Dilation #2 Left eye: 1.0% Mydriacyl, 2.5% Phenylephrine @ 1:21 PM Dilation Comments Patient cautioned that effects [...] normal Lens 2+ Nuclear sclerosis 2+ Nuclear sclerosis Fundus Exam Right Left Vitreous s/[p PPV, superior gas Disc Normal C/D Ratio 0.3 Macula attached Vessels Normal Periphery Tear at 12 with laser, inferior recurrent detachemnt OCT OS macula attached, inferior detachment Assessment/Plan: 1. 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 The risks include but are not limited to infection (approximately one out of 2000), hemorrhage, retinal detachment, increased intraocular pressure, decreased vision or blindness with total loss of vision. Additional surgery or procedures may be required. Ann Portillo understands and wishes to proceed. Given the patient has evidence of proliferative [...] The patient elects to proceed with PPV. 2. Other age-related cataract of both eyes Will progress with surgery 3. Intermediate stage nonexudative age-related macular degeneration of right eye Follows with Dr. Benjamin FOLLOW UP: Ronny Grewal MD 10/14/2023 documented in this encounter Nursing Notes * Danii Barbour, RN - 10/14/2023 1:13 PM EDT Ann Portillo presents for p/o check. Patient's name preference, 'Ann'. Last visit: 09/16/2023 Are you a diabetic? No 5 week post-op 23G PPV/EL for RD Surgical eye- LEFT EYE Pt denies complaints Have you finished taking the prescribed drops? Yes Do you drive? yes. 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 Ordered: 10/14/2023 Scheduled Procedures Name Priority Associated Diagnoses Date/Ti me REPAIR RETINAL DETACHMENT WI TH VITRECTOMY Macula-off rhegmatogenous retinal detachment of left [...] Depression Screening 07/19/2019 07/19/2018 GFR 10/13/2022 10/13/2021, 1007/2013, 10/31/2013, Additional history exists COVID-19 Vaccine ( [...] Discussed due to patient's condition Care Teams Refrigeration Service Technician Relationship Specialty Start Date End Date Keegan Felipe MD [address] [place] [address] [place] [id number] PCP - General Family Medicine 03/27/14 documented as of this encounter
--- OUTSIDE RECORDS SUMMARY | 2024-03-16 07:13 | External Medical Summary | Summary of Care ---
Author Name Unknown Organization [facility] Address [address] [facility] [place] [address] Phone [phone] Care Team Providers Care Work Adjustment Instructor Name Role Phone Keegan Felipe MD Primary Care Provide r Reason for Visit * Reason Comments Dosage Adjustment In Person (Anticoag Cl inic) Encounter Details Date Type Department Care Team (Latest Contact Info) Description 10/05/2023 10:20 AM EDT Anticoagulation Pharmacy, [address] [place] [address] [place] [address] Portal vein thrombosis*; Anticoagulation 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; [facility] current use of anticoagulant therapy Allergies Active Allergy Reactions Criticality Noted Date Comments Salicylates 09/06/2006 Asprin - hives Bee Stings Hives 05/11/2010 Oxycodone 09/07/2023 Penicillins Anaphylaxis High 09/06/2006 documented as of this encounter (statuses as of 10/05/2023) Medications Medication Sig Dispensed Refills Start Date End Date Status DAILY MULTIVITAMIN PO TABS 1 tab daily 0 Active Atenolol 25 MG Oral Tablet (Tenormin)Indicati ons:HTN, goal below 140/90 TAKE 1 TABLET BY MOUTH EVERY DAY 90 Tablet 0 02/14/2023 Active Warfarin Sodium 1 MG Oral Tablet (Coumadin)Indicati ons:Portal vein thrombosis,Anticoa gulation 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,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 current use of anticoagulant therapy Take 1 [...] as of this encounter (statuses as of 10/05/2023) Active Problems Problem Noted Date Diagnosed Date [...] as of this encounter (statuses as of 10/05/2023) Resolved Problems Problem Noted Date Diagnosed Date Resolved Date Hepatic cirrhosis 04/09/2009 10/28/2022 General medical exam 12/18/2008 009 Urinary tract infection 10/14/20080 07/2008 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 Medication Therapy Disease Management - Anticoagulation Patient: Ann Portillo | : 1945 Subjective Patient-Reported Symptoms: Patient Findings Positives: Missed doses Negatives: Signs/symptoms of thrombosis, Signs/symptoms of bleeding, Change in health, Change in alcohol use, Change in activity, Upcoming invasive procedure, Extra doses, Change in medications, Change in diet/appetite, Bruising Objective Current Warfarin Dose As of 10/05/2023 Warfarin maintenance plan: 2 mg (1 mg x 2) every Mon, Fri; 1 mg (1 mg x 1) all other days INR Result As of 10/05/2023 INR goal: 2.0-2.5 INR used for dosin.8 (10/05/2023) Assessment & Plan Warfarin Plan As of 10/05/2023 Full warfarin instructions: 10/04: 2 mg; Otherwise 2 mg every Mon, Fri; 1 mg all other days Next INR check: 10/31/2023 Repeat PT/INR in 4 week(s) Weekly dose: not changed Additional Dosing Information: Patient had detached retina repair on 09/07. Reports procedure went well and without issue. Notes that she missed a dose this week. Will plan to bolus today then return to maintenance dose. Recheck [id number] at PCP visit. Description Takes in AM Amanda Kim [facility] Clinical Pharmacist 10/05/2023, 10:09 AM documented in this encounter Plan of Treatment Upcoming Encounters Date Type Department Care Team (Late st Contact Info) Description 10/14/2023 1:00 PM EDT Office Visit Ophthalmology, [facility] [address] [facility] [place] [address] Ronny Grewal MD [address] [place] [address] 10/31/2023 10:30 AM EDT Anticoagulation Pharmacy, [address] [place] [address] [place] [address] 10/31/2023 11:00 AM EDT Office Visit Family Medicine [address] [place] [phone] Keegan Felipe MD [address] [place] [address] [place] [address] Health Maintenance Due Date Last Done Comments [...] Comments INR FINGERSTICK, POINT OF CARE STAT 10/05/2023 10:12 AM EDT Portal vein thrombosis Anticoagulation 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 [facility] current use of anticoagulant therapy documented in this encounter Results * INR FINGERSTICK, POINT OF CARE (10/05/2023 10:12 AM EDT) Fingerstick INR 1.8 INR 10:14 AM EDT [facility] [place] [facility] Blood 10/05/2023 10:1 2 AM EDT 10/05/2023 10:14 AM EDT Narrative [facility] [place]00 - 10/05/2023 10:14 AM EDT Therapeutic ranges for non-operative patients: Prophylaxsis/treatment of DVT: (Range:2.0-3.0) Treatment of pulmonary embolism:(Range:2.0-3.0) Prevention of systemic embolism from: -tissue heart valves -acute myocardial infarction -valvular heart disease -atrial fibrillation (Range: 2.0-3.0) Mechanical prosthetic valves: (Range: 2.5-3.5) Amanda Kim [facility] LAB POINT OF CARE TEST DOCKED DEVICE UNSOLICITED RESULTS [facility] [place] [address] [place] [address] [place] [address] documented in this encounter Visit Diagnoses Diagnosis Portal vein thrombosis- Primary Anticoagulation 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 Encounter for therapeutic drug monitoring [facility] current use of anticoagulant therapy documented in this encounter Advance Directives Latest Code Status on File Code Status Date Activated Date Inactivated Comments Full Code 09/07/2023 10:51 AM 09/07/2023 6:05 PM This order reflects the patients wishes and were consensually agreed upon. Question Answer Comments Discussion of Advance Directives occurred with: Not Discussed due to patient's condition Care Teams Work Adjustment Instructor Relationship Specialty Start Date End Date Keegan Felipe MD [address] [place] [address] [place] [address] PCP - General Family Medicine 03/27/14 documented as of this encounter"
--- OUTSIDE RECORDS SUMMARY | 2024-03-16 07:13 | External Medical Summary | Summary of Care ---
Author Name Unknown Organization [facility] Address [address] [facility] [place] [address] Phone [phone] Care Team Providers Care Second Miller Name Role Phone Keegan Felipe MD Primary Care Provide r Reason for Visit * Reason Comments NEW PATIENT Referred by Dr. Jacques syed for RD OS. * Auth/Cert Specialty Diagnoses / Procedures Referred By José Miguel jane Referred To Contact Diagnoses Left retinal detachment Left retinal detachment [H33.22] Procedures REPAIR DETACHED RETINA, VITRECTOMY REPAIR RETINAL DETACHMENT WITH VITRECTOMY Ronny Grewal MD [address] [facility] [address] [place] [phone] Or [facility] [address] [place] [address] Referral ID Status Reason Start Date Expiration Date Visits Re quested Visits Authorized [id number] Encounter Details Date Type Department Care Team (Latest Contact Info) Description 09/07/2023 9:00 AM EST Office Visit Ophthalmology, [facility] [address] [facility] [address] [place] [address] Ronny Grewal MD [address] [facility] [address] [place] [address] 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*; Other age-related cataract of both eyes; Intermediate stage nonexudative age-related macular degeneration of right eye Allergies Active Allergy Reactions Criticality Noted Date Comments Salicylates 09/06/2006 Asprin - hives Bee Stings Hives 05/11/2010 Oxycodone 09/07/2023 Penicillins Anaphylaxis High 09/06/2006 documented as of this encounter (statuses as of 09/28/2023) Medications Medication Sig Dispensed Refills Start Date [...] anticoagulation clinic 180 Tablet 3 3 Active amLODIPine Besylate 5 MG Oral Tablet (Norvasc)Indicatio ns:HTN, goal below 140/90 TAKE BY MOUTH 1 TABLET IN THE MORNING. 90 Tablet 1 2 09/07/19 24 Discontinu ed(Medicat ion List Clean Up) DULoxetine HCl 20 MG Oral Capsule Delayed Release Particles (Cymbalta)Indicati ons:Chronic bilateral low back pain without sciatica Take 1 Capsule by mouth in the morning. Do not cut, crush or chew. 90 Capsule 1 3 09/07/19 24 Discontinu ed(Medicat ion List Clean Up) documented as of this encounter (statuses as of 09/28/2023) Active Problems Problem Noted Date Diagnosed Date [...] as of this encounter (statuses as of 09/28/2023) Resolved Problems Problem Noted Date Diagnosed Date Resolved Date Hepatic cirrhosis 04/09/2009 10/28/2022 General medical exam 12/18/2008 009 Urinary tract infection 10/14/200807/2008 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 1 Overview: ICD-10 update of inactive term documented as of this encounter (statuses as of 09/28/2023) Immunizations Name Administration Dates Next Due Diptheria/Tetanus [...] Sign Reading Time Taken Comments Blood Pressure 163/83 09/07/2023 10:04 AM EST Pulse 59 09/07/2023 10:04 AM EST Temperature - - Respiratory Rate - - Oxygen Saturation - - Inhaled Oxygen Concentration - - Weight - - Height - - Body Mass Index - - documented in this encounter Progress Notes * Ronny Grewal MD - 09/07/2023 8:49 AM EST 09/07/2023 Nursing Notes: Cassie Miner, [facility] 09/07/23 0903 Signed Ann Portillo is a 77 year old female referred by Self to evaluate for possible RD OS. Chief Complaint: Chief Complaint Patient presents with NEW PATIENT Referred by Dr. Benjamin for RD OS. Was seen in Dr. Benjamin office yesterday for a curtain in her left eye. The curtain is running vertical midline to nasal, it started Tuesday Night. She appreciates several months ago seeing speckles inher left eye. Denies floaters or flashes at this time. Diabetic: No Insulin: n/a Exercise: none HPI: Location: Left eye How long has it been going on: 2 days Timing: constant Does anything improve or worsen the symptoms: No Associated symptoms: Flashes - yes - couple months ago Floaters - no Pain - no Redness - no Peripheral Visual Loss - yes Current Ophthalmic Medications: None COMPREHENSIVE OCULAR HISTORY Any history in yourself or blood related family of: -Blindness- No -Macular Degeneration- Self -Retinal Detachment- Self -Glaucoma/Pressure in the Eye- Family -Have you ever had any major surgery of serious injury of or around the eyes- no -Are your eyes chronically- N/A FAMILY HISTORY: Family History Problem Relation Age of Onset Glaucoma Sister Gastro-intestinal disorder Sister liver defect at Diabetes Sister Thyroid Disorder Sister Heart Disorder Brother mi age 69 Cancer Aunt (Unspecified) breast? Breast Cancer Aunt (Maternal) SOCIAL HISTORY: Social History Tobacco Use Smoking status: Never Smokeless tobacco: Never Substance Use Topics Alcohol use: Yes Comment: occasionally yrs ago; quit in 03/18 Drug use: No PMH: Past Medical History: Diagnosis Date Acquired hemolytic anemia (HCC) Anemia, Hemolytic - Unspecified Benign neoplasm of colon 01/24/2008 villous polyp--repeat 1 year Combined forms of age-related cataract of both eyes H. pylori infection 01/24/2008 EGD HTN, goal below 140/90 07/11/2007 Hypertension, benign Left retinal detachment Nonexudative age-related macular degeneration, bilateral, early dry stage Peptic ulcer Peptic Ulcer Disease Subclinical hypothyroidism 10/13/2021 TSH 5.67, T4 1.3 Patient Active Problem List Diagnosis Code HTN, goal below 140/90 I10 Hepatitis K75.9 Acquired hemolytic anemia (HCC) D59.9 Benign neoplasm of colon D12.6 ADVANCE DIRECTIVE INFORMATION Portal vein thrombosis I81 Subclinical hypothyroidism E03.8 Other cirrhosis of liver (HCC) K74.69 Nonexudative age-related macular degeneration, bilateral, early dry stage H35.3131 Left retinal detachment H33.22 Combined forms of age-related cataract of both eyes H25.813 History obtained from: Patient ROS: 1. Constitutional : No weight loss, feeling tired, fever. 2. HENT: No hearing loss, headache. 3. Cardio: No MD, CHF, Aneurysm. 4. Pulm: No asthma, COPD, trouble breathing. 5. GI: No ulcers. 6. : No protein in urine, dialysis, kidney stones. 7. Neuro: No stroke, seizures. 8. Endo: No thyroid, diabetes. 9. Skin: Positive for unusual moles 10. Muscl/skel: Positive for arthritis 11. Eyes: see exam. VA, IOP, Confrontational jones, Motility, pupil check and dilation can be found in ophth exam. Nursing notes reviewed. Base Eye Exam Visual Acuity (Snellen - Linear) Right Left Dist cc 20/40-1+1 CF @ 2 Ft Dist ph cc 20/30 NI Near cc 20/60+2 Correction: Glasses Tonometry (Tonopen, 9:03 AM) Right Left Pressure 20 12 Pupils Dark React APD Right 3 Minimal None Left 3 Minimal None Visual Jones (Counting fingers) Right Left Full Restrictions Total superior temporal, superior nasal, inferior nasal deficiencies Extraocular Movement Right Left Full Full Neuro/Psych Oriented x3: Yes Mood/Affect: Normal Dilation Both eyes: 1.0% Mydriacyl, 2.5% Phenylephrine, 0.5% Proparacaine @ 9:03 AM Slit Lamp and Fundus Exam External Exam Right Left External Normal Normal Slit Lamp Exam Right Left Lids/Lashes Normal Normal Conjunctiva/Sclera White and quiet White and quiet Cornea Clear Clear Anterior Chamber Deep and quiet Deep and quiet Iris Dilated, normal Dilated, normal Lens 2+ Nuclear sclerosis 2+ Nuclear sclerosis Fundus Exam Right Left Vitreous Normal Normal Disc Normal Normal C/D Ratio 0.3 0.3 Macula Drusen Detached, bullous Vessels Normal Normal Periphery Normal, no hole, tear or detachment. Detached Fundus: OD attached OS Detached OCT Macula: OD: drusen OS: NA Assessment/Plan: 1. 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 We discussed the risks and benefits of the treatment options including pneumatic retinopexy, scleral buckle and vitrectomy. The surgical success rate is in the range of 80-90 percent. 10- 20% risk of failure to presence or development of proliferative vitreoretinopathy. The patient elects to proceed with PPV. MDM Level: HIGH due to high risk of vision loss w/o intervention. We have discussed the risks and benefits of surgery. The risks include but are not limited to infection (approximately one out of 2000), hemorrhage, retinal detachment, increased intraocular pressure, decreased vision or blindness with total loss of vision. Additional surgery or procedures may be required. Ann Portillo understands and wishes to proceed. 2. Other age-related cataract of both eyes Will progress with surgery 3. Intermediate stage nonexudative age-related macular degeneration of right eye Follows with Dr. Benjamin FOLLOW UP: Follow Up: Return for schedule PPV. | For: schedule PPV Surgical Planning: Diagnosis: ICD-10-CM 1. 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 Christiansen 1 week with nj H&P today Ronny Grewal MD 09/07/2023 documented in this encounter Nursing Notes * Cassie Miner TECH - 09/07/2023 8:48 AM EST Ann Portillo is a 77 year old female referred by Self to evaluate for possible RD OS. Chief Complaint: Chief Complaint Patient presents with NEW PATIENT Referred by Dr. Benjamin for RD OS. Was seen in Dr. Benjamin office yesterday for a curtain in her left eye. The curtain is running vertical midline to nasal, it started Tuesday Night. She appreciates several months ago seeing speckles inher left eye. Denies floaters or flashes at this time. Diabetic: No Insulin: n/a Exercise: none HPI: Location: Left eye How long has it been going on: 2 days Timing: constant Does anything improve or worsen the symptoms: No Associated symptoms: Flashes - yes - couple months ago Floaters - no Pain - no Redness - no Peripheral Visual Loss - yes Current Ophthalmic Medications: None COMPREHENSIVE OCULAR HISTORY Any history in yourself or blood related family of: -Blindness- No -Macular Degeneration- Self -Retinal Detachment- Self -Glaucoma/Pressure in the Eye- Family -Have you ever had any major surgery of serious injury of or around the eyes- no -Are your eyes chronically- N/A FAMILY HISTORY: Family History Problem Relation Age of Onset Glaucoma Sister Gastro-intestinal disorder Sister liver defect at Diabetes Sister Thyroid Disorder Sister Heart Disorder Brother ne age 69 Cancer Aunt (Unspecified) breast? Breast Cancer Aunt (Maternal) SOCIAL HISTORY: Social History Tobacco Use Smoking status: Never Smokeless tobacco: Never Substance Use Topics Alcohol use: Yes Comment: occasionally yrs ago; quit in 03/18 Drug use: No PMH: Past Medical History: Diagnosis Date Acquired hemolytic anemia (HCC) Anemia, Hemolytic - Unspecified Benign neoplasm of colon 01/24/2008 villous polyp--repeat 1 year Combined forms of age-related cataract of both eyes H. pylori infection 01/24/2008 EGD HTN, goal below 140/90 07/11/2007 Hypertension, benign Left retinal detachment Nonexudative age-related macular degeneration, bilateral, early dry stage Peptic ulcer Peptic Ulcer Disease Subclinical hypothyroidism 10/13/2021 TSH 5.67, T4 1.3 Patient Active Problem List Diagnosis Code HTN, goal below 140/90 I10 Hepatitis K75.9 Acquired hemolytic anemia (HCC) D59.9 Benign neoplasm of colon D12.6 ADVANCE DIRECTIVE INFORMATION Portal vein thrombosis I81 Subclinical hypothyroidism E03.8 Other cirrhosis of liver (HCC) K74.69 Nonexudative age-related macular degeneration, bilateral, early dry stage H35.3131 Left retinal detachment H33.22 Combined forms of age-related cataract of both eyes H25.813 History obtained from: Patient ROS: 1. Constitutional : No weight loss, feeling tired, fever. 2. HENT: No hearing loss, headache. 3. Cardio: No MD, CHF, Aneurysm. 4. Pulm: No asthma, COPD, trouble breathing. 5. GI: No ulcers. 6. : No protein in urine, dialysis, kidney stones. 7. Neuro: No stroke, seizures. 8. Endo: No thyroid, diabetes. 9. Skin: Positive for unusual moles 10. Muscl/skel: Positive for arthritis 11. Eyes: see exam. VA, IOP, Confrontational jones, Motility, pupil check and dilation can be found in ophth exam. documented in this encounter Plan of Treatment Upcoming Encounters Date Type Department Care Team (Late st Contact Info) Description 09/28/2023 3:50 PM EDT Anticoagulation Pharmacy, [address] [place] [address] [place] [address] 10/14/2023 1:00 PM EDT Office Visit Ophthalmology, [facility] [address] [facility] [place] [address] Ronny Grewal MD [address] [facility] [address] [place] [address] 10/31/2023 11:00 AM EDT Office Visit Family Medicine [address] [place] [id number] Keegan Felipe MD [address] [place] [address] [place] [id number] Health Maintenance Due Date Last Done Comments [...] Primary Other age-related cataract of both eyes Intermediate stage nonexudative age-related macular degeneration of right eye documented in this encounter Advance Directives Latest Code Status on File Code Status Date Activated Date Inactivated Comments Full Code 09/07/2023 10:51 AM 09/07/2023 6:05 PM Thi s order reflects the patients wishes and were consensually agreed upon. Question Answer Comments Discussion of Advance Directives occurred with: Not Discussed due to patient's condition Care Teams Second Miller Relationship Specialty Start Date End Date Keegan Felipe MD [address] [place] [address] [place] [phone] PCP - General Family Medicine 03/27/14 documented as of this encounter"
--- NOTE | 2024-03-16 07:21 | Emergency Department Note ---
ED Provider Note History of Present Illness Chief Complaint: Trauma Stated Complaint: FALL 2 DAYS AGO, HIP & BACK PAIN Time Seen by Provider: 03/16/24 07:07 78-year-old female who presents to the emergency department via ambulance for evaluation of a fall. The patient reports that 2 days ago, she became extremely chilled. She went into her bedroom and turned on the heat. After she warmed up, she walked out of her bedroom to her bathroom. She reports that when she got into her bathroom, it was very cold, and she thinks that she passed out from the difference in temperature. The patient does not know how long she was down. Patient reports that she then crawled back to her bed. The patient reports that she was up a few times to walk around her house, but does not recall eating or drinking anything. The family arrived at her home this morning and found her in her bed with soiled underwear. The patient was complaining of lower back pain. The family called 911, and the patient was transported to the emergency department. At the current time, the patient complains of lower back pain. She denies any other symptoms, including headache, neck pain, chest pain, shortness of breath, abdominal pain, nausea, diarrhea or recent urinary symptoms. The patient reports that she underwent retinal surgery last week, and cataract surgery on 03/07. The patient currently rates her discomfort a 7 out of 10. Patient is on chronic Coumadin therapy for history of portal vein thrombosis. Home Medications Medication Instructions Recorded Confirmed Type atenolol 25 mg tablet 25 mg PO QAM 07/14/20 03/16/24 History [id number] 25 30 ml PO Q4 PRN Cold Symptoms 07/14/20 03/16/24 History mg-10 mg-650 mg/30 mL oral liquid multivitamin with minerals-folic 1 tab PO DAILY ##0 07/14/20 03/16/24 History acid 80 mcg chewable tablet warfarin 1 mg tablet 1 mg PO DAILY 03/16/24 03/16/24 History Allergies Allergy/AdvReac Type Severity Reaction Status Date / Time Penicillins Allergy Severe UNKNOWN Verified 03/16/24 10:27 aspirin Allergy Intermediate HIVES Verified 03/16/24 10:27 Past Med/Surg History Problem List Syncope (Acute) Multiple closed fractures of metatarsal bone of left foot (Acute) Fracture of lumbar vertebra (Acute) Fracture of multiple thoracic vertebrae (Acute) Cirrhosis Metatarsal fracture Compression fracture of lumbar vertebra Compression fracture of body of thoracic vertebra SIRS (systemic inflammatory response syndrome) UTI (urinary tract infection) Metabolic encephalopathy Fall (Acute) Medical History Portal vein thrombosis Alcoholic cirrhosis Anemia 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 Multiple rib fractures Depression Anticoagulated on Coumadin Hypertension Surgical History No pertinent past surgical history Social History Smoking Status: Never smoker Hx Alcohol Use: Yes Alcohol type: wine Hx Substance Use: No Preferred Language: [place] Communication Ability: Effective 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 Beliefs That Will Affect Care: None Current Living Situation: Family Feels Safe at Home: Yes Safety Concerns: Feels Safe At This Time Assistive Devices: Glasses and Walker Physical Exam Vital Signs Vital Signs - 24 hr 03/16/24 07:09 03/16/24 07:09 03/16/24 07:09 Temperature Temperature Source Pulse Rate Pulse Rate [Apical] Pulse Rate from SpO2 Sensor Respiratory Rate Respiratory Effort / Characteristics Respiratory Depth Respiratory Pattern Blood Pressure 154/108 H 154/108 H 154/108 H Blood Pressure [Left Arm] Blood Pressure Mean 124 124 124 Blood Pressure Mean [Left Arm] Blood Pressure Position [Left Arm] Pulse Oximetry Oxygen Delivery Method Oxygen Flow Rate Sepsis Recent Fever Within 48 Hours Sepsis New/Unexplained Change in Mental Status Sepsis Action Taken by Nursing 03/16/24 07:09 03/16/24 07:12 03/16/24 07:17 Temperature 37.5 C Temperature Source Oral Pulse Rate 80 79 76 Pulse Rate [Apical] Pulse Rate from SpO2 Sensor 80 78 Respiratory Rate 19 19 18 Respiratory Effort / Characteristics Respiratory Depth Respiratory Pattern Blood Pressure 154/108 H Blood Pressure [Left Arm] Blood Pressure Mean 123 Blood Pressure Mean [Left Arm] Blood Pressure Position [Left Arm] Pulse Oximetry 97 100 100 Oxygen Delivery Method Room Air Oxygen Flow Rate Sepsis Recent Fever Within 48 Hours No Sepsis New/Unexplained Change in Mental Status No Sepsis Action Taken by Nursing No Action Required 03/16/24 07:21 03/16/24 07:24 03/16/24 07:33 Temperature Temperature Source Pulse Rate 76 76 71 Pulse Rate [Apical] Pulse Rate from SpO2 Sensor 78 71 Respiratory Rate 19 18 15 Respiratory Effort / Characteristics Respiratory Depth Respiratory Pattern Blood Pressure Blood Pressure [Left Arm] Blood Pressure Mean Blood Pressure Mean [Left Arm] Blood Pressure Position [Left Arm] Pulse Oximetry 100 98 99 Oxygen Delivery Method Room Air Oxygen Flow Rate Sepsis Recent Fever Within 48 Hours Sepsis New/Unexplained Change in Mental Status Sepsis Action Taken by Nursing 03/16/24 07:42 03/16/24 07:56 03/16/24 07:58 Temperature 36.9 C Temperature Source Pulse Rate 70 78 Pulse Rate [Apical] Pulse Rate from SpO2 Sensor 69 Respiratory Rate 18 18 Respiratory Effort / Characteristics Respiratory Depth Respiratory Pattern Blood Pressure 156/78 H Blood Pressure [Left Arm] Blood Pressure Mean Blood Pressure Mean [Left Arm] Blood Pressure Position [Left Arm] Pulse Oximetry 100 98 98 Oxygen Delivery Method Room Air Room Air Oxygen Flow Rate 0 0 Sepsis Recent Fever Within 48 Hours Sepsis New/Unexplained Change in Mental Status Sepsis Action Taken by Nursing 03/16/24 07:58 03/16/24 08:12 03/16/24 08:14 Temperature 36.9 C Temperature Source Oral Pulse Rate 90 89 Pulse Rate [Apical] 76 Pulse Rate from SpO2 Sensor 90 Respiratory Rate 18 Respiratory Effort / Characteristics Respiratory Depth Respiratory Pattern Blood Pressure Blood Pressure [Left Arm] Blood Pressure Mean Blood Pressure Mean [Left Arm] Blood Pressure Position [Left Arm] Pulse Oximetry 98 96 Oxygen Delivery Method Room Air Oxygen Flow Rate Sepsis Recent Fever Within 48 Hours Sepsis New/Unexplained Change in Mental Status Sepsis Action Taken by Nursing 03/16/24 08:16 03/16/24 08:21 03/16/24 08:48 Temperature 36.9 C Temperature Source Oral Pulse Rate 94 H 97 H Pulse Rate [Apical] 78 Pulse Rate from SpO2 Sensor Respiratory Rate 98 H 18 15 Respiratory Effort / Characteristics Respiratory Depth Respiratory Pattern Blood Pressure Blood Pressure [Left Arm] 145/89 H Blood Pressure Mean Blood Pressure Mean [Left Arm] 107 Blood Pressure Position [Left Arm] Pulse Oximetry 98 Oxygen Delivery Method Room Air Oxygen Flow Rate Sepsis Recent Fever Within 48 Hours Sepsis New/Unexplained Change in Mental Status Sepsis Action Taken by Nursing 03/16/24 09:00 03/16/24 09:01 03/16/24 09:01 Temperature Temperature Source Pulse Rate Pulse Rate [Apical] 96 H Pulse Rate from SpO2 Sensor Respiratory Rate 18 Respiratory Effort / Characteristics Respiratory Depth Respiratory Pattern Blood Pressure 182/132 H 182/132 H Blood Pressure [Left Arm] 182/132 H Blood Pressure Mean 149 149 Blood Pressure Mean [Left Arm] 148 Blood Pressure Position [Left Arm] Pulse Oximetry 98 Oxygen Delivery Method Room Air Oxygen Flow Rate Sepsis Recent Fever Within 48 Hours Sepsis New/Unexplained Change in Mental Status Sepsis Action Taken by Nursing 03/16/24 10:00 03/16/24 10:01 Temperature Temperature Source Pulse Rate Pulse Rate [Apical] 100 H Pulse Rate from SpO2 Sensor Respiratory Rate 20 Respiratory Effort / Characteristics Non-Labored Spontaneous Respiratory Depth Normal Respiratory Pattern Regular Blood Pressure 144/96 H Blood Pressure [Left Arm] 144/96 H Blood Pressure Mean 134 Blood Pressure Mean [Left Arm] 112 Blood Pressure Position [Left Arm] Lying Pulse Oximetry 92 Oxygen Delivery Method Room Air Oxygen Flow Rate Sepsis Recent Fever Within 48 Hours Sepsis New/Unexplained Change in Mental Status Sepsis Action Taken by Nursing CONSTITUTIONAL: Healthy and well nourished. Alert and oriented X 3. GCS 15. HEENT: Patient is wearing an eye patch from her recent surgery. This was not removed. No obvious periorbital ecchymosis, facial abrasions or Yao sign. NECK: No obvious tenderness to palpation through the central cervical spine. RESPIRATORY: Clear to auscultation bilaterally with no wheezing, crackles, rhonchi or stridor. CARDIOVASCULAR: Regular rate and rhythm with no murmurs, rubs or gallops. GASTROINTESTINAL: Bowel sounds present in all quadrants. Abdomen is soft and nontender to palpation. MUSCULOSKELETAL: Examination shows tenderness to palpation through the mid to lower central lumbar spine. Patient also has some mild tenderness through the upper thoracic spine as well. No ecchymosis, abrasions or lacerations of the back. Further examination shows significant ecchymosis of the left foot, however the patient does not have any discomfort with range of motion of the ankle, midfoot or toes. Negative logroll of the hips. Straight leg raise worsens the patient's back discomfort. Ankle plantar and dorsiflexion strength is 4 out of 5 and symmetric bilaterally. INTEGUMENTARY: No rash or other significant dermatologic conditions noted. HEMATOLOGIC: No ecchymosis or petechiae. PSYCHIATRIC: Positive affect. NEUROLOGIC: Cranial nerves II-XII grossly intact. No focal neurologic deficits noted. Extremities are sensory intact. Course Course Patient history and physical exam were performed. Nurses notes were reviewed. Vital signs were reviewed, showing an elevated blood pressure of 154/108. Oral temperature was 37.5 C, with pulse ox of 100% on room air. The patient is not tachycardic. IV access was established, and labs were drawn. An ECG was performed and was normal. The patient was placed on court monitor. Further review of labs shows a normal creatinine on i-STAT. The patient was administered normal saline 1 L at 500 cc/h. Patient was also administered a small dose of IV morphine and Zofran. Patient was then sent to CT for trauma imaging, showing compression fractures of T11-L1, otherwise no other acute findings. X-rays of the left foot confirms fractures of the 2nd through 4th metatarsals. Labs reviewed to show an initial elevated troponin as well. 3- hour repeat did show a decreased level. The patient did have an elevated lactate of 4.6, with repeat lactate pending at the time of dictation. Patient does have a moderately elevated white count neutrophilic shift. Coagulation studies shows an INR of 3.0. Creatinine kinase is also normal. Urinalysis shows no hematuria, have 1+ leukocyte esterase and 4+ bacteria. Findings were discussed with the patient. She did require 2 additional doses of IV morphine for pain control. Because the patient lives alone, I did express my concern for the patient's ability to ambulate around her home. I did recommend hospitalist evaluation, likely including OT/PT evaluation and further disposition planning. The patient indicated that she would prefer to go home. I also explained to the patient that orthopedics would also need to reevaluate her, although her fractures are likely nonsurgical. The patient was in agreement with this plan. I then discussed the case with Dr. Dueñas, ED attending physician, who agrees with workup and plan for hospitalist evaluation. I then discussed the case with the [facility] hospitalist (Dr. Smith), who did come to the emergency department to evaluate the patient. Please see his dictation for further treatment and final disposition. Administered Medications Ertapenem 1,000 mg/ Syringe 10 mls @ 2 mls/min IV Q24H MIN Stop: 03/26/24 11:59 Last Admin: 03/16/24 13:18 Dose: 2 mls/min Documented By: LATA Sodium Chloride (Nss) 1,000 mls @ 80 mls/hr IV .[id number] MIN Stop: 03/17/24 12:59 Last Admin: 03/16/24 13:18 Dose: 80 mls/hr Documented By: LATA Discontinued Medications Sodium Chloride (Nss) 1,000 mls @ 500 mls/hr IV .Q2H ONE Stop: 03/16/24 09:15 Last Infusion: 03/16/24 10:57 Dose: Infused Documented By: MARIA TERESA Admin: 03/16/24 07:44 Dose: 500 mls/hr Documented By: MINH Ioversol (Optiray 320 100ml) 94 ml IV ONCE ONE Stop: 03/16/24 08:18 Last Admin: 03/16/24 08:17 Dose: 94 ml Documented By: DIANA Morphine Sulfate (Morphine Sulfate 2 Mg/Ml Carp) 2 mg IV NOW STA Stop: 03/16/24 07:41 Last Admin: 03/16/24 07:43 Dose: 2 mg Documented By: MINH Morphine Sulfate (Morphine Sulfate 2 Mg/Ml Carp) 2 mg IV NOW STA Stop: 03/16/24 09:18 Last Admin: 03/16/24 09:22 Dose: 2 mg Documented By: MINH Morphine Sulfate (Morphine Sulfate 2 Mg/Ml Carp) 2 mg IV NOW STA Stop: 03/16/24 10:17 Last Admin: 03/16/24 10:29 Dose: 2 mg Documented By: MARIA TERESA Ondansetron HCl (Ondansetron Inj 2 Mg/Ml 2 Ml Vial) 4 mg IV NOW STA Stop: 03/16/24 07:41 Last Admin: 03/16/24 07:43 Dose: 4 mg Documented By: MINH Medical Decision Making Medical Records Attestation: I reviewed the patient's medical records. Home Medications was personally reviewed by me Laboratory Data Attestation: I reviewed the patient's lab results. 03/16/24 07:20 03/16/24 07:20 Lab Results 03/16/24 03/16/24 03/16/24 Range/Units 07:07 07:20 07:27 WBC 16.04 H (4.8-10.8) K/ul RBC 3.13 L (4.20-5.40) M/uL Hgb 11.1 L (12.0-16.0) g/dl POC Hgb (12.0-16.0) g/dl Hct 33.8 L (37.0-47.0) % POC Hct (37-47) % MCV 108.0 H (80.0-100.0) fL MCH 35.5 H (25.0-34.0) pg MCHC 32.8 (32.0-36.0) g/dL RDW Std Deviation 70.8 H (36.4-46.3) fL RDW Coeff of [place] 18.8 H (11.5-14.5) % Plt Count 63 L (130-400) K/uL MPV 12.1 (9.4-12.4) fL Immature Gran % (Auto) 1.1 % Neut % (Auto) 92.9 % Lymph % (Auto) 3.4 % [place] % (Auto) 2.3 % Eos % (Auto) 0.1 % Baso % (Auto) 0.2 % Neut # (Auto) 14.90 H (1.40-6.50) K/uL Lymph # (Auto) 0.55 L (1.20-3.40) K/uL [place] # (Auto) 0.37 (0.11-0.59) K/uL Eos # (Auto) 0.01 (0.00-0.50) K/uL Baso # (Auto) 0.03 (0.00-0.20) K/uL Immature Gran # (Auto) 0.18 (0.01-0.20) K/uL Macrocytosis Present Echinocytes 1+ PT 29.3 H (9.0-12.0) Seconds INR 3.0 H (0.9-1.1) POC Sodium (135-144) mmol/L Sodium 142 (136-145) mmol/L POC Potassium (3.3-5.0) mmol/L Potassium 3.7 (3.5-5.1) mmol/L POC Chloride (101-112) mmol/L Chloride 112 H (98-107) mmol/L Carbon Dioxide 24 (21-32) mmol/L POC Total CO2 (24-31) mmol/L Anion Gap 6 (3-11) POC Anion Gap (16-25) mmol/L POC BUN (7-18) mg/dl BUN 19 (6-23) mg/dl Creatinine 0.89 (0.6-1.2) mg/dl POC Creatinine (0.6-1.3) mg/dl Est Cr Clr Drug Dosing 65.2 ml/min Est GFR ( Amer) 73.0 ml/min Est GFR (Non-Af Amer) 63.0 ml/min BUN/Creatinine Ratio 21.3 H (10-20) Glucose 132 H (70-99(Fasting)) mg/dl POC Glucose (other) (70-99) mg/dl Calcium 8.4 L (8.6-10.3) mg/dl POC Ioniz Calcium Anna (1.12-1.32) mmol/l Total Bilirubin 6.5 H (0.2-1.0) mg/dl AST 45 H (13-39) U/L ALT 28 (7-52) U/L Alkaline Phosphatase 135 H (34-104) U/L Total Creatine Kinase 20 L (26-192) U/L Troponin I High Sens 22.2 H (0-14) pg/ml Total Protein 6.1 (6.0-8.3) gm/dl Albumin 2.5 L (3.4-5.0) gm/dl Globulin 3.6 (2.5-4.0) gm/dl Albumin/Globulin Ratio 0.7 L (0.9-2) Urine Color Dark Yellow Urine Appearance Turbid A (Clear) Urine pH 6.0 (4.5-7.5) Ur Specific [place] 1.017 (1.000-1.030) Urine Protein Negative (Negative) Urine Glucose (UA) Negative (Negative) Urine Ketones Negative (Negative) Urine Blood Negative (Negative) Urine Nitrite Negative (Negative) Urine Bilirubin 1+ H (Negative) Urine Urobilinogen Positive H (Negative) Ur Leukocyte Esterase 1+ H (Negative) Urine WBC (Auto) 21-50 H (0-5) /hpf Urine RBC (Auto) 0-2 (0-2) /hpf U Hyaline Cast (Auto) 0-2 (0-2) /lpf U Epithel Cells (Auto) 6-10 H (0-2) /hpf Urine Bacteria (Auto) 4+ H (None Seen) Ur Renal Epithelial Cell [place] Biurate Crystals Calcium Oxalate Crystal Leucine Crystals Cystine Crystals Uric Acid Crystals Triple Phos Crystals Sulfonamide Crystals Cholesterol Crystals Talc Crystals Tyrosine Crystals Hippuric Acid Crystals Unidentified Crystals Amorphous Sediment Epithelial Casts Hyaline Casts Granular Casts Waxy Casts RBC Casts WBC Casts Other Casts Urine Mucus Urine Other Urine Trichomonas Urine Yeast Urine Sperm Ur Oval Fat Bodies Adenovirus (PCR) Not Detected (NotDetected) B. pertussis DNA (PCR) Not Detected (NotDetected) B.parapertussis DNA PCR Not Detected (NotDetected) C. pneumoniae DNA (PCR) Not Detected (NotDetected) Coronavirus OC43 (PCR) Not Detected (NotDetected) Coronavirus HKU1 (PCR) Not Detected (NotDetected) Coronavirus 229E (PCR) Not Detected (NotDetected) SARS-CoV-2 (PCR) Not Detected (NotDetected) Coronavirus NL63 (PCR) Not Detected (NotDetected) Human Metapneumovir PCR Not Detected (NotDetected) Influenza Type A (PCR) Not Detected (NotDetected) Influenza Type B (PCR) Not Detected (NotDetected) M. pneumoniae (PCR) Not Detected (NotDetected) Parainfluenza 1 (PCR) Not Detected (NotDetected) Parainfluenza 2 (PCR) Not Detected (NotDetected) Parainfluenza 3 (PCR) Not Detected (NotDetected) Parainfluenza 4 (PCR) Not Detected (NotDetected) RSV (PCR) Not Detected (NotDetected) Entero/Rhino (PCR) Not Detected (NotDetected) 03/16/24 03/16/24 Range/Units 07:30 09:03 WBC (4.8-10.8) K/ul RBC (4.20-5.40) M/uL Hgb (12.0-16.0) g/dl POC Hgb 11.6 L (12.0-16.0) g/dl Hct (37.0-47.0) % POC Hct 34 L (37-47) % MCV (80.0-100.0) fL MCH (25.0-34.0) pg MCHC (32.0-36.0) g/dL RDW Std Deviation (36.4-46.3) fL RDW Coeff of Martinez (11.5-14.5) % Plt Count (130-400) K/uL MPV (9.4-12.4) fL Immature Gran % (Auto) % Neut % (Auto) % Lymph % (Auto) % Ball[place] % (Auto) % Eos % (Auto) % Baso % (Auto) % Neut # (Auto) (1.40-6.50) K/uL Lymph # (Auto) (1.20-3.40) K/uL [place] # (Auto) (0.11-0.59) K/uL Eos # (Auto) (0.00-0.50) K/uL Baso # (Auto) (0.00-0.20) K/uL Immature Gran # (Auto) (0.01-0.20) K/uL Macrocytosis Echinocytes PT (9.0-12.0) Seconds INR (0.9-1.1) POC Sodium 144 (135-144) mmol/L Sodium (136-145) mmol/L POC Potassium 4.6 (3.3-5.0) mmol/L Potassium (3.5-5.1) mmol/L POC Chloride 109 (101-112) mmol/L Chloride (98-107) mmol/L Carbon Dioxide (21-32) mmol/L POC Total CO2 23 L (24-31) mmol/L Anion Gap (3-11) POC Anion Gap 18.0 (16-25) mmol/L POC BUN 24 H (7-18) mg/dl BUN (6-23) mg/dl Creatinine (0.6-1.2) mg/dl POC Creatinine 0.8 (0.6-1.3) mg/dl Est Cr Clr Drug Dosing ml/min Est GFR ( Amer) ml/min Est GFR (Non-Af Amer) ml/min BUN/Creatinine Ratio (10-20) Glucose (70-99(Fasting)) mg/dl POC Glucose (other) 132 H (70-99) mg/dl Calcium (8.6-10.3) mg/dl POC Ioniz Calcium Anna 1.14 (1.12-1.32) mmol/l Total Bilirubin (0.2-1.0) mg/dl AST (13-39) U/L ALT (7-52) U/L Alkaline Phosphatase (34-104) U/L Total Creatine Kinase (26-192) U/L Troponin I High Sens (0-14) pg/ml Total Protein (6.0-8.3) gm/dl Albumin (3.4-5.0) gm/dl Globulin (2.5-4.0) gm/dl Albumin/Globulin Ratio (0.9-2) Urine Color Cancelled Urine Appearance Cancelled (Clear) Urine pH Cancelled (4.5-7.5) Ur Specific [place] Cancelled (1.000-1.030) Urine Protein Cancelled (Negative) Urine Glucose (UA) Cancelled (Negative) Urine Ketones Cancelled (Negative) Urine Blood Cancelled (Negative) Urine Nitrite Cancelled (Negative) Urine Bilirubin Cancelled (Negative) Urine Urobilinogen Cancelled (Negative) Ur Leukocyte Esterase Cancelled (Negative) Urine WBC (Auto) Cancelled (0-5) /hpf Urine RBC (Auto) Cancelled (0-2) /hpf U Hyaline Cast (Auto) Cancelled (0-2) /lpf U Epithel Cells (Auto) Cancelled (0-2) /hpf Urine Bacteria (Auto) Cancelled (None Seen) Ur Renal Epithelial Cell Cancelled [place] Biurate Crystals Cancelled Calcium Oxalate Crystal Cancelled Leucine Crystals Cancelled Cystine Crystals Cancelled Uric Acid Crystals Cancelled Triple Phos Crystals Cancelled Sulfonamide Crystals Cancelled Cholesterol Crystals Cancelled Talc Crystals Cancelled Tyrosine Crystals Cancelled Hippuric Acid Crystals Cancelled Unidentified Crystals Cancelled Amorphous Sediment Cancelled Epithelial Casts Cancelled Hyaline Casts Cancelled Granular Casts Cancelled Waxy Casts Cancelled RBC Casts Cancelled WBC Casts Cancelled Other Casts Cancelled Urine Mucus Cancelled Urine Other Cancelled Urine Trichomonas Cancelled Urine Yeast Cancelled Urine Sperm Cancelled Ur Oval Fat Bodies Cancelled Adenovirus (PCR) (NotDetected) B. pertussis DNA (PCR) (NotDetected) B.parapertussis DNA PCR (NotDetected) C. pneumoniae DNA (PCR) (NotDetected) Coronavirus OC43 (PCR) (NotDetected) Coronavirus HKU1 (PCR) (NotDetected) Coronavirus 229E (PCR) (NotDetected) SARS-CoV-2 (PCR) (NotDetected) Coronavirus NL63 (PCR) (NotDetected) Human Metapneumovir PCR (NotDetected) Influenza Type A (PCR) (NotDetected) Influenza Type B (PCR) (NotDetected) M. pneumoniae (PCR) (NotDetected) Parainfluenza 1 (PCR) (NotDetected) Parainfluenza 2 (PCR) (NotDetected) Parainfluenza 3 (PCR) (NotDetected) Parainfluenza 4 (PCR) (NotDetected) RSV (PCR) (NotDetected) Entero/Rhino (PCR) (NotDetected) Imaging Data Attestation: I personally reviewed and interpreted this imaging study as follows: My Impression: My interpretation with noncontrast CT of the head does not show evidence for skull fracture or intracranial bleed. My interpretation of a noncontrast CT of the cervical spine does not show evidence for any fractures or subluxations. My interpretation of a noncontrast CT of the facial bones does not show any obvious fractures. My interpretation of a CT of the thoracolumbar spine shows fractures of T11-L1. My interpretation of a CT with IV contrast of the chest does not show evidence for pneumothorax, pneumonia, pericarditis or other concerning findings. My interpretation of the CT with IV contrast of the abdomen and pelvis again demonstrates fractures of T11-L1, otherwise no other acute intra-abdominal findings or solid organ injuries. My interpretation of an x-ray of the left foot shows neck fractures of the 2nd through 4th metatarsals. Radiologist reports were also reviewed with concurrence. Radiologist's Impression: Abdomen/Pelvis CT 03/16/24 07:[address] WITH IV CONTRAST CT DOSE: HISTORY: Trauma TECHNIQUE: Multiaxial CT images of the abdomen and pelvis were performed following the use of intravenous contrast. A dose lowering technique was utilized adhering to the principles of ALARA. COMPARISON STUDY: Abdomen and pelvis CT 07/14/2020. FINDINGS: The lung bases will be reported on the same day chest CT. There are trace bilateral pleural effusions. No pneumoperitoneum. No pneumatosis. Age- indeterminate mild superior endplate compression deformities from T11 through L1. No additional fractures within the abdomen or pelvis. Moderate body wall edema. Thickening and hypodensity within the left posterior lateral abdominal wall musculature has improved may represent an old hematoma. This is best seen on image 99. Cirrhotic liver again noted. No hepatic masses. The spleen is normal in size. Trace perisplenic ascites is noted. Punctate calcification within the main portal vein consistent with a small focus of chronic thrombus. Otherwise, the main portal vein is patent. Splenic varicosities with a splenorenal shunt is again noted consistent with portal hypertension. No gallbladder wall thickening. There are multiple gallstones identified. There is a 2 mm stone within the proximal common bile duct/cystic duct on image 117. This is nonobstructing. The common bile duct is normal in caliber. The pancreas and adrenal glands are unremarkable. Moderate cortical renal thinning. No hydronephrosis. No retroperitoneal hematoma or lymphadenopathy. Normal caliber abdominal aorta. No pelvic lymphadenopathy. There is trace pelvic free fluid. The bladder is decompressed. Prior hysterectomy. Colonic diverticulosis. No evidence for acute diverticulitis. No bowel wall thickening or obstruction. Normal appendix. IMPRESSION: 1. Age-indeterminate mild superior endplate compression deformities from T11 through L1. 2. Thickening and hypodensity/edema within the left posterior lateral abdominal wall musculature. This has improved may represent an old intramuscular hematoma. An acute soft tissue contusion is not excluded. 3. Cirrhotic liver again noted. 4. Cholelithiasis. No gallbladder wall thickening. There is also a punctate nonobstructing stone within the cystic duct/proximal common bile duct. 5. Additional findings as described above. ACT 112: Negative or not required by law. Electronically signed by: Dl Bey M.D. 03/16/2024 8:[address] 03/16/24 07:[address] DOSE: HISTORY: Trauma TECHNIQUE: Multiaxial CT images of the cervical spine were performed and reformatted in the sagittal and coronal plane without the use of contrast. A dose lowering technique was utilized adhering to the principles of ALARA. COMPARISON: Cervical spine CT 07/13/2021. FINDINGS: No fractures. No subluxation. Prevertebral soft tissues and the C1-C2 interval are intact. No pneumothorax. Moderate to severe degenerative disc disease throughout the cervical spine. IMPRESSION: No fractures within the cervical spine. ACT 112: Negative or not required by law. Electronically signed by: Dl Bey M.D. 03/16/2024 8:[address] 03/16/24 07:[address] WITH CONTRAST CT DOSE: HISTORY: Trauma TECHNIQUE: Multiaxial CT images of the chest were performed following the intravenous administration of contrast. A dose lowering technique was utilized adhering to the principles of ALARA. COMPARISON: Chest CT 07/14/2020. FINDINGS: The central airways are patent. No pneumothorax. There are trace bilateral pleural effusions. Mild dependent changes seen at the lung bases. No focal lung consolidations to suggest a pneumonia. No evidence for pulmonary edema. Stable mild nodularity along the right minor fissure. This is likely benign given the long-term stability. Mild superior endplate compression deformities from T11 through L1. These are technically age indeterminate. No significant paravertebral edema identified this time. No additional fractures within the chest. Abdominal structures will be reported on the same day abdomen and pelvis CT. Normal caliber esophagus. No mediastinal hematoma or lymphadenopathy. The heart is mildly enlarged. No pericardial effusion. Normal caliber thoracic aorta with no evidence for a dissection. The main pulmonary arteries are patent. Moderate coronary artery calcifications are noted. IMPRESSION: 1. Age-indeterminate mild superior endplate compression deformities from T11 through L1. No associated retropulsion. 2. Mild cardiomegaly. 3. Trace bilateral pleural effusions. 4. Additional findings as described above. ACT 112: Negative or not required by law. Electronically signed by: Dl Bey M.D. 03/16/2024 8:[address] 03/16/24 07:13 CT facial bones wo con CLINICAL HISTORY: 78 years-old Female presenting with Trauma. Acute facial trauma COMPARISON STUDY: CT head and cervical spine studies of same day, head CT 07/13/2021 TECHNIQUE: High-resolution CT scan of the facial bones is performed. Images are reviewed in the axial, sagittal, and coronal planes. IV contrast was not administered for this examination. A dose lowering technique was utilized adhering to the principles of ALARA. FINDINGS: There is no evidence of facial bone fracture. The bony orbits are intact and the orbital contents are within normal limits. The zygomatic arches, nasal bones, and pterygoid plates are preserved. The maxilla and mandible are intact. The paranasal sinuses and mastoid air cells are clear. The imaged calvarium and upper cervical spine are within normal limits. Partially imaged brain parenchyma is within normal limits. Hyperdense left globe is new from prior. IMPRESSION: 1. No acute facial bone fracture. 2. Hyperdense left globe, new from the 2021 comparison. ACT 112: Negative or not required by law. The above report was generated using voice recognition software. It may contain grammatical, syntax or spelling errors. Electronically signed by: Johny Fischer M.D. 03/16/2024 8:[address] 03/16/24 07:13 CT head/brain wo con CLINICAL HISTORY: 78 years-old Female with Trauma. TECHNIQUE: Multiple axial CT images of the head were obtained without contrast. A dose lowering technique was utilized adhering to the principles of ALARA. COMPARISON: 07/13/2021. FINDINGS: No acute intracranial hemorrhage, midline shift, intracranial mass, hydrocephalus, territorial ischemia or abnormal extra-axial collection. Age- related involutional changes. White matter hypodensities suggest chronic microvascular ischemic disease. Cerebral vascular calcifications. The study is motion degraded. The calvarium is intact. The paranasal sinuses, mastoid air cells, and middle ear cavities are clear. Hyperdense left globe is new from prior. IMPRESSION: 1. No acute intracranial abnormality or calvarial fracture. 2. Hyperdense left globe is new from the 2021 study. ACT 112: Negative or not required by law. The above report was generated using voice recognition software. It may contain grammatical, syntax or spelling errors. Electronically signed by: Johny Fischer M.D. 03/16/2024 8:[address] 03/16/24 07:13 CT lumbar spine w con CT DOSE: 3913.67 mGy.cm CLINICAL HISTORY: Trauma - c/o LBP TECHNIQUE: Multiaxial CT images of the lumbar spine were performed following the intravenous administration of contrast and reformatted in the sagittal and coronal planes. A dose lowering technique was utilized adhering to the principles of ALARA. COMPARISON STUDY: None. FINDINGS: Age-indeterminate mild superior endplate compression deformity at T12 and L1. No associated retropulsion. No subluxation. [id number] degenerative changes within the lumbar spine. The sacrum is intact. IMPRESSION: Age-indeterminate mild superior endplate compression deformities at T12 and L1. ACT 112: Negative or not required by law. Electronically signed by: Dl Bey M.D. 03/16/2024 8:[address] 03/16/24 07:13 CT thoracic spine w con HISTORY: 78 years-old Female Trauma acute back pain status post trauma COMPARISON: CT chest and lumbar spine studies of same day, CT abdomen and pelvis 07/14/2020 TECHNIQUE: Multiple axial CT images of the thoracic spine were obtained with IV contrast. A dose lowering technique was used consistent with the principals of ALARA. FINDINGS: Mamj-or-esxbdief multilevel vertebral interspace narrowing and spondylotic spurring with moderate facet arthrosis. The visualized appearance of the bones. Mild age-indeterminate anterosuperior compression deformities at T11-L1 which are new/progressed from the 2020 exam. No retropulsion or paravertebral edema. Suboptimal evaluation of the central canal and neural foramen by CT technique. Mild mid thoracic dextroscoliosis. No acute displaced rib fracture seen. Trace pleural effusions. Please refer to the chest CT of same day for discussion of the intrathoracic findings. Right perinephric edema. IMPRESSION: Mild age-indeterminate T11-L1 compression deformities without retropulsion or paravertebral edema. These are new from the 2020 comparison. ACT 112: Negative or not required by law. The above report was generated using voice recognition software. It may contain grammatical, syntax or spelling errors. Electronically signed by: Johny Fischer M.D. 03/16/2024 8:48 AM Foot X-Ray 03/16/24 08:09 LEFT FOOT 3 VIEWS HISTORY: L foot ecchymosis COMPARISON: None. FINDINGS: Soft tissue swelling within the left forefoot. Mildly angulated transverse fractures of the necks of the second through fourth metatarsals. These demonstrate mild lateral angulation. No dislocation. No intra-articular extension. The Lisfranc joint is intact. The bones are osteopenic. Mild degenerative changes within the left foot. Plantar heel spur is noted. No radiopaque foreign bodies. IMPRESSION: Mildly angulated transverse fractures at the necks of the second through fourth metatarsals. ACT 112: Negative or not required by law. Electronically signed by: Dl Bey M.D. 03/16/2024 9:11 AM ECG Data Attestation: I personally reviewed and interpreted this ECG as follows: Indication: + syncope, + weakness and + other Rhythm: + sinus with SA ECG Intervals/blocks: + Normal QRS, + Normal QT and + Normal [place] ECG [place]: + Normal ECG ST segments: + Normal ST segments Comparison ECG Date: no prior available MDM Narrative Cardiac monitoring: An order was placed for continuous cardiac monitoring. The monitor shows a rate of 76 bpm with a sinus rhythm. library monitor history was reviewed throughout the evaluation, and no dysrhythmias were noted. See ED/course section for further details of today's visit. The patient reportedly had a syncopal episode in her bathroom 2 days ago when she went from her hot bedroom to a cool bathroom. The patient then reports calling back to her bed, and has been in bed now for the past few days. She was found by family members this morning. The patient reports that she has been up and about, however family members report that she had soiled her underwear, indicating that she likely has not gotten out of bed since her fall. Laboratory studies are not suggestive of rhabdomyolysis. Patient complains mostly of lower back pain, with CT imaging showing evidence for T11-L1 fractures. Although she denies any left foot pain, she does have notable edema and ecchymosis, with x-rays confirming neck fractures of the 2nd through 4th metatarsals. Additional trauma imaging was performed from head through pelvis, and did not show any other concerning findings. Labs were reviewed, showing that patient is therapeutic with an INR of 3.0. She does have elevated troponins and a lactate. Troponin has been trending downward with 3-hour repeat. Lactate repeat was pending at the time of dictation. Initial urinalysis was unfortunately not with a straight catheter. The nurse indicated that she would recollect the urine with straight catheter for further assessment. Given the patient's injuries, and concern for ability to take care of herself at home, I do feel that the patient warrants hospitalist evaluation, including PT/OT evaluation, and orthopedic consult for nonsurgical injuries. The patient was in agreement with this plan as well. I also discussed the case with Dr. Dueñas, ED attending physician, who agrees with workup and plan for hospitalist evaluation. Impression Fracture of multiple thoracic vertebrae, Fracture of lumbar vertebra, Multiple closed fractures of metatarsal bone of left foot, Syncope Discharge Plan Visit Data Chief Complaint: Trauma Stated Complaint: FALL 2 DAYS AGO, HIP & BACK PAIN ED Provider: Janusz Dueñas ED Midlevel Provider: Michael Barker Discharge Problem: Fracture of multiple thoracic vertebrae, Fracture of lumbar vertebra, Multiple closed fractures of metatarsal bone of left foot, Syncope Patient Disposition: Admitted As Inpatient Discharge Instructions Interventions: ED Discharge Assessment Last Done: 03/16/24 12:24
[2024-03-16 07:43] LABS: iSTAT Creatinine 0.8 mg/dl (0.6-1.3); iSTAT Hemoglobin 11.6 g/dl (12.0-16.0); iSTAT Ionized Calcium 1.14 mmol/l (1.12-1.32); iSTAT Potassium 4.6 mmol/L (3.3-5.0)
[2024-03-16] MEDS: MoRPHine SULFATE 2 MG/ML CARP IV STA ×3 (07:43→10:29)
[2024-03-16] MEDS: ONDANSETRON INJ 2 MG/ML 2 ML VIAL IV STA (07:43)
[2024-03-16] MEDS: SODIUM CHLORIDE 0.9% 1,000 ML IV ONE (07:44)
[2024-03-16 08:09] LABS: Albumin Globulin Ratio 0.7 (0.9-2); Albumin Level 2.5 gm/dl (3.4-5.0); BUN Creatinine Ratio 21.3 (10-20); Bilirubin,Total 6.5 mg/dl (0.2-1.0); Calcium 8.4 mg/dl (8.6-10.3); Creatinine Clr Calc Pharmacy 65.2 ml/min; Globulin 3.6 gm/dl (2.5-4.0); Potassium 3.7 mmol/L (3.5-5.1); Total Protein 6.1 gm/dl (6.0-8.3)
[2024-03-16 08:14] LABS: Troponin I High Sensitivity 22.2 pg/ml (0-14)
[2024-03-16 08:15] LABS: Prothrombin Time 29.3 Seconds (9.0-12.0)
[2024-03-16] MEDS: OPTIRAY 320 100ml IV ONE (08:17)
[2024-03-16 08:19] LABS: Basophils # (auto) 0.03 K/uL (0.00-0.20); Basophils % (auto) 0.2 %; Echinocytes 1+; Eosinophils # (auto) 0.01 K/uL (0.00-0.50); Eosinophils % (auto) 0.1 %; Hematocrit (blood only) 33.8 % (37.0-47.0); Hemoglobin 11.1 g/dl (12.0-16.0); Immature Granulocytes # (auto) 0.18 K/uL (0.01-0.20); Immature Granulocytes % (auto) 1.1 %; Lymphocytes # (auto) 0.55 K/uL (1.20-3.40); Lymphocytes % (auto) 3.4 %; Macrocytosis Present; Mean Corpuscular Hemoglobin 35.5 pg (25.0-34.0); Mean Corpuscular Hgb Conc 32.8 g/dL (32.0-36.0); Mean Platelet Volume 12.1 fL (9.4-12.4); Monocytes # (auto) 0.37 K/uL (0.11-0.59); Monocytes % (auto) 2.3 %; Neutrophils % (auto) 92.9 %; Platelet Count 63 K/uL (130-400); RDW Coefficient of Variation 18.8 % (11.5-14.5); RDW Standard Deviation 70.8 fL (36.4-46.3); Red Blood Count 3.13 M/uL (4.20-5.40); White Blood Count 16.04 K/ul (4.8-10.8)
[2024-03-16 08:27] LABS: Appearance Urine Turbid (Clear); Bacteria Urine Automated 4+ (None Seen); Bilirubin Urine 1+ (Negative); Blood Urine Negative (Negative); Cast Urine Automated 0-2 /lpf (0-2); Color Urine Dark Yellow; Glucose Urine UA Negative (Negative); Ketones Urine Negative (Negative); Leukocyte Esterase Urine 1+ (Negative); Nitrite Urine Negative (Negative); Protein Urine Negative (Negative); Specific Gravity Urine 1.017 (1.000-1.030); Urobilinogen Urine Positive (Negative); WBC Urine Automated 21-50 /hpf (0-5)
[2024-03-16 08:29] LABS: RBC Urine Automated 0-2 /hpf (0-2)
--- NOTE | 2024-03-16 08:30 | CT Scan Report ---
CERVICAL SPINE CT CT DOSE: HISTORY: Trauma TECHNIQUE: Multiaxial CT images of the cervical spine were performed and reformatted in the sagittal and coronal plane without the use of contrast. A dose lowering technique was utilized adhering to th e principles of ALARA. COMPARISON: Cervical spine CT 07/13/2021. FINDINGS: No fractures. No subluxation. Prevertebral soft tissues and the C1-C2 interval are intact. No pneumothorax. Moderate to severe degenerative disc disease throughout the cervical spine. IMPRESSION: No fractures within the cervical spine. ACT 112: Negative or not required by law. Electronically signed by: Dl Bey M.D. 03/16/2024 8:28 AM
--- NOTE | 2024-03-16 08:35 | CT Scan Report ---
CT lumbar spine w con CT DOSE: 3913.67 mGy.cm CLINICAL HISTORY: Trauma - c/o LBP TECHNIQUE: Multiaxial CT images of the lumbar spine were performed following the intravenous administ ration of contrast and reformatted in the sagittal and coronal planes. A dose lowering technique was utilized adhering to the principles of ALARA. COMPARISON STUDY: None. FINDINGS: Age-indeterminate mild superior endplate compression deformity at T12 and L1. No associated retropulsion. No subluxation. Qrfg-[id number]-ekuyvjcq degenerative changes within the lumbar spine. The sac rum is intact. IMPRESSION: Age-indeterminate mild superior endplate compression deformities at T12 and L1. ACT 112: Negative or not required by law. Electronically signed by: lD Bey M.D. 03/16/2024 8:34 AM
[2024-03-16 08:36] LABS: Adenovirus PCR Not Detected (NotDetected); Bordetella parapertussis PCR Not Detected (NotDetected); Bordetella pertussis PCR Not Detected (NotDetected); Chlamydia pneumoniae PCR Not Detected (NotDetected); Coronavirus 229E PCR Not Detected (NotDetected); Coronavirus CoV-2 (COVID19)PCR Not Detected (NotDetected); Coronavirus HKU1 PCR Not Detected (NotDetected); Coronavirus NL63 PCR Not Detected (NotDetected); Coronavirus OC43PCR Not Detected (NotDetected); Human Metapneumovirus PCR Not Detected (NotDetected); Influenza A PCR Not Detected (NotDetected); Influenza B PCR Not Detected (NotDetected); Mycoplasma pneumoniae PCR Not Detected (NotDetected); Parainfluenza Virus 1 PCR Not Detected (NotDetected); Parainfluenza Virus 2 PCR Not Detected (NotDetected); Parainfluenza Virus 3 PCR Not Detected (NotDetected); Parainfluenza Virus 4 PCR Not Detected (NotDetected); Respiratory Syncytial VirusPCR Not Detected (NotDetected); Rhinovirus/Enterovirus PCR Not Detected (NotDetected)
--- NOTE | 2024-03-16 08:46 | CT Scan Report ---
CT head/brain wo con CLINICAL HISTORY: 78 years-old Female with Trauma. TECHNIQUE: Multiple axial CT images of the head were obtained without contrast. A dose lowering tech nique was utilized adhering to the principles of ALARA. COMPARISON: 07/13/2021. FINDINGS: No acute intracranial hemorrhage, midline shift, intracranial mass, hydrocephalus, territorial ischem ia or abnormal extra-axial collection. Age-related involutional changes. White matter hypodensities s uggest chronic microvascular ischemic disease. Cerebral vascular calcifications. The study is motion degraded. The calvarium is intact. The paranasal sinuses, mastoid air cells, and middle ear cavities are clear. Hyperdense left globe is new from prior. IMPRESSION: 1. No acute intracranial abnormality or calvarial fracture. 2. Hyperdense left globe is new from the 2021 study. ACT 112: Negative or not required by law. The above report was generated using voice recognition software. It may contain grammatical, syntax o r spelling errors. Electronically signed by: Johny Fischer M.D. 03/16/2024 8:44 AM
--- NOTE | 2024-03-16 08:48 | CT Scan Report ---
CHEST CT WITH CONTRAST CT DOSE: HISTORY: Trauma TECHNIQUE: Multiaxial CT images of the chest were performed following the intravenous administration of contrast. A dose lowering technique was utilized adhering to the principles of ALARA. COMPARISON: Chest CT 07/14/2020. FINDINGS: The central airways are patent. No pneumothorax. There are trace bilateral pleural effusion s. Mild dependent changes seen at the lung bases. No focal lung consolidations to suggest a pneumonia . No evidence for pulmonary edema. Stable mild nodularity along the right minor fissure. This is like ly benign given the long-term stability. Mild superior endplate compression deformities from T11 thro ugh L1. These are technically age indeterminate. No significant paravertebral edema identified this t niko. No additional fractures within the chest. Abdominal structures will be reported on the same day abdomen and pelvis CT. Normal caliber esophagus. No mediastinal hematoma or lymphadenopathy. The hear t is mildly enlarged. No pericardial effusion. Normal caliber thoracic aorta with no evidence for a d issection. The main pulmonary arteries are patent. Moderate coronary artery calcifications are noted. IMPRESSION: 1. Age-indeterminate mild superior endplate compression deformities from T11 through L1. No associate d retropulsion. 2. Mild cardiomegaly. 3. Trace bilateral pleural effusions. 4. Additional findings as described above. ACT 112: Negative or not required by law. Electronically signed by: Dl Bey M.D. 03/16/2024 8:47 AM
--- NOTE | 2024-03-16 08:50 | CT Scan Report ---
CT thoracic spine w con HISTORY: 78 years-old Female Trauma acute back pain status post trauma COMPARISON: CT chest and lumbar spine studies of same day, CT abdomen and pelvis 07/14/2020 TECHNIQUE: Multiple axial CT images of the thoracic spine were obtained with IV contrast. A dose lowe ring technique was used consistent with the principals of [place]. FINDINGS: Hkav-iu-lxfitfew multilevel vertebral interspace narrowing and spondylotic spurring with moderate fac et arthrosis. The visualized appearance of the bones. Mild age-indeterminate anterosuperior compressi on deformities at T11-L1 which are new/progressed from the 202 exam. No retropulsion or paravertebra l edema. Suboptimal evaluation of the central canal and neural foramen by CT technique. Mild mid thor acic dextroscoliosis. No acute displaced rib fracture seen. Trace pleural effusions. Please refer to the chest CT of same day for discussion of the intrathoracic findings. Right perinephric edema. IMPRESSION: Mild age-indeterminate T11-L1 compression deformities without retropulsion or paravertebral edema. Th nusrat are new from the 2020 comparison. ACT 112: Negative or not required by law. The above report was generated using voice recognition software. It may contain grammatical, syntax o r spelling errors. Electronically signed by: Johny Fischer M.D. 03/16/2024 8:48 AM
--- NOTE | 2024-03-16 08:54 | CT Scan Report ---
CT facial bones wo con CLINICAL HISTORY: 78 years-old Female presenting with Trauma. Acute facial trauma COMPARISON STUDY: CT head and cervical spine studies of same day, head CT 07/13/2021 TECHNIQUE: High-resolution CT scan of the facial bones is performed. Images are reviewed in the axia l, sagittal, and coronal planes. IV contrast was not administered for this examination. A dose lower ing technique was utilized adhering to the principles of ALARA. FINDINGS: There is no evidence of facial bone fracture. The bony orbits are intact and the orbital contents are within normal limits. The zygomatic arches, nasal bones, and pterygoid plates are preserved. The max illa and mandible are intact. The paranasal sinuses and mastoid air cells are clear. The imaged calvarium and upper cervical spine are within normal limits. Partially imaged brain parenchyma is within normal limits. Hyperdense left globe is new from prior. IMPRESSION: 1. No acute facial bone fracture. 2. Hyperdense left globe, new from the 2021 comparison. ACT 112: Negative or not required by law. The above report was generated using voice recognition software. It may contain grammatical, syntax o r spelling errors. Electronically signed by: Johny Fischer M.D. 03/16/2024 8:52 AM
--- NOTE | 2024-03-16 08:55 | Electrocardiogram Report ---
Test Reason : Blood Pressure : */* mmHG Vent. Rate : 76 BPM Atrial Rate : 76 BPM P-R Int : 122 ms QRS Dur : 86 ms QT Int : 400 ms P-R-T Axes : 0 54 218 degrees QTcB Int : 450 ms Normal sinus rhythm with sinus arrhythmia Nonspecific ST and T wave abnormality Abnormal ECG When compared with ECG of 13-Jul-2021 10:39, Nonspecific T wave abnormality, worse in Inferior leads Nonspecific T wave abnormality now evident in Anterolateral leads Confirmed by Trent Lin ([id number]) on 03/16/2024 8:55:15 AM Referred By: REFERRED SELF Confirmed By: Trent Lin
--- NOTE | 2024-03-16 08:56 | CT Scan Report ---
ABDOMEN AND PELVIS CT WITH IV CONTRAST CT DOSE: HISTORY: Trauma TECHNIQUE: Multiaxial CT images of the abdomen and pelvis were performed following the use of intrave nous contrast. A dose lowering technique was utilized adhering to the principles of ALARA. COMPARISON STUDY: Abdomen and pelvis CT 07/14/2020. FINDINGS: The lung bases will be reported on the same day chest CT. There are trace bilateral pleural effusions. No pneumoperitoneum. No pneumatosis. Age-indeterminate mild superior endplate compression deformities from T11 through L1. No additional fractures within the abdomen or pelvis. Moderate body wall edema. Thickening and hypodensity within the left posterior lateral abdominal wall musculature has improved may represent an old hematoma. This is best seen on image 99. Cirrhotic liver again note d. No hepatic masses. The spleen is normal in size. Trace perisplenic ascites is noted. Punctate calc ification within the main portal vein consistent with a small focus of chronic thrombus. Otherwise, t he main portal vein is patent. Splenic varicosities with a splenorenal shunt is again noted consisten t with portal hypertension. No gallbladder wall thickening. There are multiple gallstones identified. There is a 2 mm stone within the proximal common bile duct/cystic duct on image 117. This is nonobst ructing. The common bile duct is normal in caliber. The pancreas and adrenal glands are unremarkable. Moderate cortical renal thinning. No hydronephrosis. No retroperitoneal hematoma or lymphadenopathy. Normal caliber abdominal aorta. No pelvic lymphadenopathy. There is trace pelvic free fluid. The naya dder is decompressed. Prior hysterectomy. Colonic diverticulosis. No evidence for acute diverticuliti s. No bowel wall thickening or obstruction. Normal appendix. IMPRESSION: 1. Age-indeterminate mild superior endplate compression deformities from T11 through L1. 2. Thickening and hypodensity/edema within the left posterior lateral abdominal wall musculature. Thi s has improved may represent an old intramuscular hematoma. An acute soft tissue contusion is not exc luded. 3. Cirrhotic liver again noted. 4. Cholelithiasis. No gallbladder wall thickening. There is also a punctate nonobstructing stone with in the cystic duct/proximal common bile duct. 5. Additional findings as described above. ACT 112: Negative or not required by law. Electronically signed by: Dl Bey M.D. 03/16/2024 8:54 AM
--- NOTE | 2024-03-16 09:12 | XRay Report ---
LEFT FOOT 3 VIEWS HISTORY: L foot ecchymosis COMPARISON: None. FINDINGS: Soft tissue swelling within the left forefoot. Mildly angulated transverse fractures of the necks of the second through fourth metatarsals. These demonstrate mild lateral angulation. No disloc ation. No intra-articular extension. The Lisfranc joint is intact. The bones are osteopenic. Mild deg enerative changes within the left foot. Plantar heel spur is noted. No radiopaque foreign bodies. IMPRESSION: Mildly angulated transverse fractures at the necks of the second through fourth metatarsals. ACT 112: Negative or not required by law. Electronically signed by: Dl Bey M.D. 03/16/2024 9:11 AM
--- NOTE | 2024-03-16 09:48 | Emergency Department Note ---
ED Visit Note I was consulted in regards to the patient's presentation and plan of care by the Advanced Practice Provider. I engaged in a detailed/meaningful discussion with the Advanced Practice Provider in regards to this patient's workup and plan of care. I performed a substantiative portion of the medical decision making following discussion with the Advanced Practice Provider. Please see the Advanced Practice Provider's separate documentation for full details of the patient's visit. I agree with the assessment and plan of Michael Barker PA-C. Janusz Dueñas, DO Emergency Medicine .
[2024-03-16] MEDS ORDERED: LORazepam 2 MG/1 ML VIAL IV PRN ×2 (12:34)
[2024-03-16] MEDS ORDERED: Ativan IV Alcohol Withdrawal--Active Protocol IV PRN (12:34)
--- NOTE | 2024-03-16 12:54 | Gastrointestinal Consultation ---
Date of Consultation March 16, 2024 Assessment & Plan (1) Cirrhosis: Patient with history of cirrhosis, presented to the ED s/p a fall. She is alert but not oriented. no other GI concerns. - I recommend that she cease all alcohol use. - recommend 2 gm low sodium diet. - avoid hepatotoxic medications. - will await the ammonia level. if elevated, would start lactulose and titrate dose to 2-3 bowel movements daily. - I would recommend she follow with hepatology upon discharge. I explained to the patient that she should have labs/imaging on a regular basis given history of cirrhosis. - if LFTs rising, would consider MRCP given nonobstructing stones were seen on CT. - patient tells me that she does not plan to cooperate with further testing and doesn't want more testing ordered. - Will discuss further with MD. further recommendations to follow, please see Dr. Koroma's append. Supervising Physician Co-Signing Physician Notes I examined the patient and reviewed patient's chart , laboratory data and imaging studies. I agree with with assessment and plan of care as suggested by advanced practice provider. Patient is slightly confused. Awaiting ammonia level, begin lactulose 10 g twice a day, titrate to diarrhea. Possible common bile duct stone. Noncontrast MRCP if patient agrees. History of Present Illness Reason for Consultation: history of alcoholic cirrhosis, ? HE Requesting Physician: Bess SOLOMON Attending Physician: Jer Smith MD History of Present Illness Patient is a 78 year old female with a history of alcoholic cirrhosis, who came to the ED for evaluation after a fall at home. she tells me she was found by her family and was brought to the ED for evaluation. She tells me that she has seen [facility] in the past for her cirrhosis but has not been to see them in a long time and now doesn't follow with anyone on this. She admits she does still use alcohol but will not elaborate further. Patient denies any current issues with jaudince, itching, dark urine, nausea, vomiting, dysphagia, heartburn, abdominal pain, unintentional weight loss, change in bowels, melena, or bright red blood per rectum. GI was consulted in case there was a component of hepatic encephalopathy playing a factor - ammonia has been ordered but no results are available as of yet. Allergies Allergy/AdvReac Type Severity Reaction Status Date / Time Penicillins Allergy Severe UNKNOWN Verified 03/16/24 10:27 aspirin Allergy Intermediate HIVES Verified 03/16/24 10:27 Home Medications Medication Instructions Recorded Confirmed Type atenolol 25 mg tablet 25 mg PO QAM 07/14/20 03/16/24 History [id number]-TB-[id number] 25 30 ml PO Q4 PRN Cold Symptoms 07/14/20 03/16/24 History mg-10 mg-650 mg/30 mL oral liquid multivitamin with minerals-folic 1 tab PO DAILY ##0 07/14/20 03/16/24 History acid 80 mcg chewable tablet warfarin 1 mg tablet 1 mg PO DAILY 03/16/24 03/16/24 History Patient History Medical History Portal vein thrombosis Alcoholic cirrhosis Anemia 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 Multiple rib fractures Depression Anticoagulated on Coumadin Hypertension Surgical History No pertinent past surgical history Social History Smoking Status: Never smoker Hx Alcohol Use: Yes Alcohol type: wine Hx Substance Use: No Preferred Language: Citizen Of [place] Communication Ability: Effective [employer] Required: No Beliefs That Will Affect Care: None Current Living Situation: Family Feels Safe at Home: Yes Safety Concerns: Feels Safe At This Time Assistive Devices: Glasses and Walker Review of Systems Review of Systems: All systems reviewed & are unremarkable except as noted in HPI & below Physical Exam Constitutional: WD/WN, vitals as above Respiratory: normal respiratory effort, lungs clear to auscultation Cardiovascular: Rate/Rhythm: regular rate and regular rhythm Gastrointestinal (Abdomen): normal bowel sounds, soft, nontender, no he patosplenomegaly Psychiatric: Orientation: alert Affect: euthymic affect she is not oriented. Results & Data Vital Signs (Past 12 Hours) Vital Signs Temp Pulse Pulse Resp BP BP Pulse Ox 03/16/24 12:24 03/16/24 11:51 100.0 F H 111 H 20 139/68 88 L 03/16/24 11:40 111 H 03/16/24 11:40 03/16/24 11:25 09/06/24 10:01 144/96 H 03/16/24 10:00 100 H 20 144/96 H 92 03/16/24 09:01 182/132 H 03/16/24 09:01 182/132 H 03/16/24 09:00 96 H 18 182/132 H 98 03/16/24 08:48 97 H 15 03/16/24 08:21 94 H 18 03/16/24 08:16 98.4 F 78 98 H 145/89 H 98 03/16/24 08:14 89 03/16/24 08:12 90 96 03/16/24 07:58 98.4 F 76 18 98 03/16/24 07:58 98.4 F 78 18 156/78 H 98 03/16/24 07:56 98 03/16/24 07:42 70 18 100 03/16/24 07:33 71 15 99 03/16/24 07:24 76 18 98 03/16/24 07:21 76 19 100 03/16/24 07:17 99.5 F 76 18 154/108 H 100 03/16/24 07:12 79 19 100 03/16/24 07:09 80 19 97 03/16/24 07:09 154/108 H 03/16/24 07:09 154/108 H 03/16/24 07:09 154/108 H O2 Del Method O2 Flow Rate 03/16/24 12:24 Room Air 03/16/24 11:51 Room Air 03/16/24 11:40 03/16/24 11:40 Nasal Cannula 03/16/24 11:25 Nasal Cannula 2 03/16/24 10:01 03/16/24 10:00 Room Air 03/16/24 09:01 03/16/24 09:01 03/16/24 09:00 Room Air 03/16/24 08:48 03/16/24 08:21 03/16/24 08:16 Room Air 03/16/24 08:14 03/16/24 08:12 03/16/24 07:58 Room Air 03/16/24 07:58 Room Air 0 03/16/24 07:56 Room Air 0 03/16/24 07:42 03/16/24 07:33 03/16/24 07:24 Room Air 03/16/24 07:21 03/16/24 07:17 Room Air 03/16/24 07:12 03/16/24 07:09 03/16/24 07:09 03/16/24 07:09 03/16/24 07:09 Diagnostic Findings ABDOMEN AND PELVIS CT WITH IV CONTRAST CT DOSE: HISTORY: Trauma TECHNIQUE: Multiaxial CT images of the abdomen and pelvis were performed following the use of intravenous contrast. A dose lowering technique was utilized adhering to the principles of ALARA. COMPARISON STUDY: Abdomen and pelvis CT 07/14/2020. FINDINGS: The lung bases will be reported on the same day chest CT. There are trace bilateral pleural effusions. No pneumoperitoneum. No pneumatosis. Age- indeterminate mild superior endplate compression deformities from T11 through L1. No additional fractures within the abdomen or pelvis. Moderate body wall edema. Thickening and hypodensity within the left posterior lateral abdominal wall musculature has improved may represent an old hematoma. This is best seen on image 99. Cirrhotic liver again noted. No hepatic masses. The spleen is normal in size. Trace perisplenic ascites is noted. Punctate calcification within the main portal vein consistent with a small focus of chronic thrombus. Otherwise, the main portal vein is patent. Splenic varicosities with a splenorenal shunt is again noted consistent with portal hypertension. No gallbladder wall thickening. There are multiple gallstones identified. There is a 2 mm stone within the proximal common bile duct/cystic duct on image 117. This is nonobstructing. The common bile duct is normal in caliber. The pancreas and adrenal glands are unremarkable. Moderate cortical renal thinning. No hydronephrosis. No retroperitoneal hematoma or lymphadenopathy. Normal caliber abdominal aorta. No pelvic lymphadenopathy. There is trace pelvic free fluid. The bladder is decompressed. Prior hysterectomy. Colonic diverticulosis. No evidence for acute diverticulitis. No bowel wall thickening or obstruction. Normal appendix. IMPRESSION: 1. Age-indeterminate mild superior endplate compression deformities from T11 through L1. 2. Thickening and hypodensity/edema within the left posterior lateral abdominal wall musculature. This has improved may represent an old intramuscular hematoma. An acute soft tissue contusion is not excluded. 3. Cirrhotic liver again noted. 4. Cholelithiasis. No gallbladder wall thickening. There is also a punctate nonobstructing stone within the cystic duct/proximal common bile duct. 5. Additional findings as described above. ACT 112: Negative or not required by law. Electronically signed by: Dl Bey M.D. 03/16/2024 8:54 AM Coding Level of Care Code 20117 INT INP/OBS CARE MIN Diagnoses Cirrhosis K74.60 Hepatic cirrhosis type: unspecified hepatic cirrhosis (1) Cirrhosis Hepatic cirrhosis type: unspecified hepatic cirrhosis
--- NOTE | 2024-03-16 12:55 | History & Physical Report ---
Date of Service March 16, 2024 Assessment & Plan (1) Fall: (2) Metabolic encephalopathy: Plan: Admit to telemetry Patient presenting from home after being found by her family confused and incontinent of stool and urine. Seems like patient was likely down for about 2 days. In the ED, found to have T11-L1 compression fractures and left 2nd through 4th metatarsal fractures, SIRS, and possible UTI For additional work up of possible syncope, would like to obtain brain MRI but patient is currently declining Echo Consider possible hepatic encephalopathy, will check ammonia level VBG (3) SIRS (systemic inflammatory response syndrome): (4) UTI (urinary tract infection): Plan: Possible sepsis - WBC 16K, tachycardia, lactate 4.6. BP stable. IVF, trend lactate Blood cultures Hx of ESBL E. Coli, will start ertapenem Follow urine and blood cultures No ascites noted on CT, therefore low suspicion for SBP (5) Alcoholic cirrhosis: Plan: Lost to follow up with GI Last EGD 2012 - no esophageal or gastric varices, mild portal gastropathy T. bili 6.5, AST 45, ALT 28, alk phos 135 Unclear of current alcohol use Check ETOH and UDS Start thiamine, folic acid CIWA protocol with PRN Ativan Continue atenolol Platelets 63K, at baseline GI consult (6) Portal vein thrombosis: Plan: On Coumdin, INR 3.0, hold Coumadin for now given fall and multiple fractures (7) Compression fracture of body of thoracic vertebra: (8) Compression fracture of lumbar vertebra: Plan: CT shows compression fractures T11-L1 MRI thoracic and lumbar ordered, patient declining Spine ortho consult (9) Metatarsal fracture: Plan: Left foot XR shows: Mildly angulated transverse fractures at the necks of the second through fourth metatarsals. Ortho consult DVT PROPHYLAXIS SCDs when INR < 2.0 Patient seen in collaboration with Dr. Smith. I spent a total of 75 minutes coordinating, documenting, and providing care for this patient excluding time spent in the performance of separately billed services. This included personally reviewing all current laboratories and imaging studies, medication reconciliation, outpatient chart review, and discussion with specialists. 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 history is limited from the patient, additional history obtained from ED documentation and review of outpatient PCP, GI, hematology records. Patient reports that 2 days ago she was going to the bathroom and the next thing she knew she was on the floor. She believes she may have lost consciousness for a short period of time. She is unsure how long she was on the floor. She was found by her granddaughter today confused and incontinent of stool and urine. EMS was called and patient was brought to the ED for further evaluation. In the ED, imaging shows T11-L1 compression fractures and left 2nd through 4th metatarsal fractures. Labs show WBC 16K, lactate 4.6, elevated LFTs. UA suggestive of possible UTI. Patient was given IVF, IV morphine, IV Zofran. Allergies Allergy/AdvReac Type Severity Reaction Status Date / Time Penicillins Allergy Severe UNKNOWN Verified 03/16/24 10:27 aspirin Allergy Intermediate HIVES Verified 03/16/24 10:27 Home Medications Medication Instructions Recorded Confirmed Type atenolol 25 mg tablet 25 mg PO QAM 07/14/20 03/16/24 History idjrdsysy-ZN-bkonarkktfecz 25 30 ml PO Q4 PRN Cold Symptoms 07/14/20 03/16/24 History mg-10 mg-650 mg/30 mL oral liquid multivitamin with minerals-folic 1 tab PO DAILY ##0 07/14/20 03/16/24 History acid 80 mcg chewable tablet warfarin 1 mg tablet 1 mg PO DAILY 03/16/24 03/16/24 History Past Med/Surg History Problem List (Updated 03/16/24 @ 13:34 by Michael Barker) Syncope (Acute) Multiple closed fractures of metatarsal bone of left foot (Acute) Fracture of lumbar vertebra (Acute) Fracture of multiple thoracic vertebrae (Acute) Cirrhosis Metatarsal fracture Compression fracture of lumbar vertebra Compression fracture of body of thoracic vertebra SIRS (systemic inflammatory response syndrome) UTI (urinary tract infection) Metabolic encephalopathy Fall (Acute) Medical History (Updated 03/16/24 @ 13:34 by Michael Barker) Portal vein thrombosis Alcoholic cirrhosis Anemia 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 Smith's addendum for physical exam Results & Data Results & Data Vital Signs (Past 12 Hours) Vital Signs Temp Pulse Pulse Resp BP BP Pulse Ox 03/16/24 12:24 03/16/24 11:51 37.8 C H 111 H 20 139/68 88 L 03/16/24 11:25 03/16/24 10:01 144/96 H 03/16/24 10:00 100 H 20 144/96 H 92 03/16/24 09:01 182/132 H 03/16/24 09:01 182/132 H 03/16/24 09:00 96 H 18 182/132 H 98 03/16/24 08:48 97 H 15 03/16/24 08:21 94 H 18 03/16/24 08:16 36.9 C 78 98 H 145/89 H 98 03/16/24 08:14 89 03/16/24 08:12 90 96 03/16/24 07:58 36.9 C 76 18 98 03/16/24 07:58 36.9 C 78 18 156/78 H 98 03/16/24 07:56 98 03/16/24 07:42 70 18 100 03/16/24 07:33 71 15 99 03/16/24 07:24 76 18 98 03/16/24 07:21 76 19 100 03/16/24 07:17 37.5 C 76 18 154/108 H 100 03/16/24 07:12 79 19 100 03/16/24 07:09 80 19 97 03/16/24 07:09 154/108 H 03/16/24 07:09 154/108 H 03/16/24 07:09 154/108 H O2 Del Method O2 Flow Rate 03/16/24 12:24 Room Air 03/16/24 11:51 Room Air 03/16/24 11:25 Nasal Cannula 2 03/16/24 10:01 03/16/24 10:00 Room Air 03/16/24 09:01 03/16/24 09:01 03/16/24 09:00 Room Air 03/16/24 08:48 03/16/24 08:21 03/16/24 08:16 Room Air 03/16/24 08:14 03/16/24 08:12 03/16/24 07:58 Room Air 03/16/24 07:58 Room Air 0 03/16/24 07:56 Room Air 0 03/16/24 07:42 03/16/24 07:33 03/16/24 07:24 Room Air 03/16/24 07:21 03/16/24 07:17 Room Air 03/16/24 07:12 03/16/24 07:09 03/16/24 07:09 03/16/24 07:09 03/16/24 07:09 Laboratory Results Short CBC 03/16/24 Range/Units 07:20 WBC 16.04 H (4.8-10.8) K/ul Hgb 11.1 L (12.0-16.0) g/dl Hct 33.8 L (37.0-47.0) % Plt Count 63 L (130-400) K/uL BMP 03/16/24 07:20 Sodium 142 Potassium 3.7 Chloride 112 H Carbon Dioxide 24 BUN 19 Creatinine 0.89 Glucose 132 H Calcium 8.4 L Cardiac Enzymes 03/16/24 Range/Units 07:20 Total Creatine Kinase 20 L (26-192) U/L Liver Function 03/16/24 Range/Units 07:20 Total Bilirubin 6.5 H (0.2-1.0) mg/dl AST 45 H (13-39) U/L ALT 28 (7-52) U/L Alkaline Phosphatase 135 H (34-104) U/L Albumin 2.5 L (3.4-5.0) gm/dl Urine 03/16/24 03/16/24 Range/Units 07:07 09:03 Urine Color Dark Yellow Cancelled Urine Appearance Turbid A Cancelled (Clear) Urine pH 6.0 Cancelled (4.5-7.5) Ur Specific [place] 1.017 Cancelled (1.000-1.030) Urine Protein Negative Cancelled (Negative) Urine Glucose (UA) Negative Cancelled (Negative) Diagnostic Findings Abdomen/Pelvis CT 03/16/24 07:[address] WITH IV CONTRAST CT DOSE: HISTORY: Trauma TECHNIQUE: Multiaxial CT images of the abdomen and pelvis were performed following the use of intravenous contrast. A dose lowering technique was utilized adhering to the principles of ALARA. COMPARISON STUDY: Abdomen and pelvis CT 07/14/2020. FINDINGS: The lung bases will be reported on the same day chest CT. There are trace bilateral pleural effusions. No pneumoperitoneum. No pneumatosis. Age- indeterminate mild superior endplate compression deformities from T11 through L1. No additional fractures within the abdomen or pelvis. Moderate body wall edema. Thickening and hypodensity within the left posterior lateral abdominal wall musculature has improved may represent an old hematoma. This is best seen on image 99. Cirrhotic liver again noted. No hepatic masses. The spleen is normal in size. Trace perisplenic ascites is noted. Punctate calcification within the main portal vein consistent with a small focus of chronic thrombus. Otherwise, the main portal vein is patent. Splenic varicosities with a splenorenal shunt is again noted consistent with portal hypertension. No gallbladder wall thickening. There are multiple gallstones identified. There is a 2 mm stone within the proximal common bile duct/cystic duct on image 117. This is nonobstructing. The common bile duct is normal in caliber. The pancreas and adrenal glands are unremarkable. Moderate cortical renal thinning. No hydronephrosis. No retroperitoneal hematoma or lymphadenopathy. Normal caliber abdominal aorta. No pelvic lymphadenopathy. There is trace pelvic free fluid. The bladder is decompressed. Prior hysterectomy. Colonic diverticulosis. No evidence for acute diverticulitis. No bowel wall thickening or obstruction. Normal appendix. IMPRESSION: 1. Age-indeterminate mild superior endplate compression deformities from T11 through L1. 2. Thickening and hypodensity/edema within the left posterior lateral abdominal wall musculature. This has improved may represent an old intramuscular hematoma. An acute soft tissue contusion is not excluded. 3. Cirrhotic liver again noted. 4. Cholelithiasis. No gallbladder wall thickening. There is also a punctate nonobstructing stone within the cystic duct/proximal common bile duct. 5. Additional findings as described above. ACT 112: Negative or not required by law. Electronically signed by: Dl Bey M.D. 03/16/2024 8:[address] 03/16/24 07:[address] DOSE: HISTORY: Trauma TECHNIQUE: Multiaxial CT images of the cervical spine were performed and reformatted in the sagittal and coronal plane without the use of contrast. A dose lowering technique was utilized adhering to the principles of ALARA. COMPARISON: Cervical spine CT 07/13/2021. FINDINGS: No fractures. No subluxation. Prevertebral soft tissues and the C1-C2 interval are intact. No pneumothorax. Moderate to severe degenerative disc disease throughout the cervical spine. IMPRESSION: No fractures within the cervical spine. ACT 112: Negative or not required by law. Electronically signed by: Dl Bey M.D. 03/16/2024 8:[address] 03/16/24 07:[address] WITH CONTRAST CT DOSE: HISTORY: Trauma TECHNIQUE: Multiaxial CT images of the chest were performed following the intravenous administration of contrast. A dose lowering technique was utilized adhering to the principles of ALARA. COMPARISON: Chest CT 07/14/2020. FINDINGS: The central airways are patent. No pneumothorax. There are trace bilateral pleural effusions. Mild dependent changes seen at the lung bases. No focal lung consolidations to suggest a pneumonia. No evidence for pulmonary edema. Stable mild nodularity along the right minor fissure. This is likely benign given the long-term stability. Mild superior endplate compression deformities from T11 through L1. These are technically age indeterminate. No significant paravertebral edema identified this time. No additional fractures within the chest. Abdominal structures will be reported on the same day abdomen and pelvis CT. Normal caliber esophagus. No mediastinal hematoma or lymphadenopathy. The heart is mildly enlarged. No pericardial effusion. Normal c aliber thoracic aorta with no evidence for a dissection. The main pulmonary arteries are patent. Moderate coronary artery calcifications are noted. IMPRESSION: 1. Age-indeterminate mild superior endplate compression deformities from T11 through L1. No associated retropulsion. 2. Mild cardiomegaly. 3. Trace bilateral pleural effusions. 4. Additional findings as described above. ACT 112: Negative or not required by law. Electronically signed by: Dl Bey M.D. 03/16/2024 8:[address] 03/16/24 07:13 CT facial bones wo con CLINICAL HISTORY: 78 years-old Female presenting with Trauma. Acute facial trauma COMPARISON STUDY: CT head and cervical spine studies of same day, head CT 07/13/2021 TECHNIQUE: High-resolution CT scan of the facial bones is performed. Images are reviewed in the axial, sagittal, and coronal planes. IV contrast was not administered for this examination. A dose lowering technique was utilized adhering to the principles of ALARA. FINDINGS: There is no evidence of facial bone fracture. The bony orbits are intact and the orbital contents are within normal limits. The zygomatic arches, nasal bones, and pterygoid plates are preserved. The maxilla and mandible are intact. The paranasal sinuses and mastoid air cells are clear. The imaged calvarium and upper cervical spine are within normal limits. Partially imaged brain parenchyma is within normal limits. Hyperdense left globe is new from prior. IMPRESSION: 1. No acute facial bone fracture. 2. Hyperdense left globe, new from the 2021 comparison. ACT 112: Negative or not required by law. The above report was generated using voice recognition software. It may contain grammatical, syntax or spelling errors. Electronically signed by: Johny Fischer M.D. 03/16/2024 8:[address] 03/16/24 07:13 CT head/brain wo con CLINICAL HISTORY: 78 years-old Female with Trauma. TECHNIQUE: Multiple axial CT images of the head were obtained without contrast. A dose lowering technique was utilized adhering to the principles of ALARA. COMPARISON: 07/13/2021. FINDINGS: No acute intracranial hemorrhage, midline shift, intracranial mass, hydrocephalus, territorial ischemia or abnormal extra-axial collection. Age- related involutional changes. White matter hypodensities suggest chronic microvascular ischemic disease. Cerebral vascular calcifications. The study is motion degraded. The calvarium is intact. The paranasal sinuses, mastoid air cells, and middle ear cavities are clear. Hyperdense left globe is new from prior. IMPRESSION: 1. No acute intracranial abnormality or calvarial fracture. 2. Hyperdense left globe is new from the 2021 study. ACT 112: Negative or not required by law. The above report was generated using voice recognition software. It may contain grammatical, syntax or spelling errors. Electronically signed by: Johny Fischer M.D. 03/16/2024 8:[address] 03/16/24 07:13 CT lumbar spine w con CT DOSE: 3913.67 mGy.cm CLINICAL HISTORY: Trauma - c/o LBP TECHNIQUE: Multiaxial CT images of the lumbar spine were performed following the intravenous administration of contrast and reformatted in the sagittal and coronal planes. A dose lowering technique was utilized adhering to the principles of ALARA. COMPARISON STUDY: None. FINDINGS: Age-indeterminate mild superior endplate compression deformity at T12 and L1. No associated retropulsion. No subluxation. [id number] degenerative changes within the lumbar spine. The sacrum is intact. IMPRESSION: Age-indeterminate mild superior endplate compression deformities at T12 and L1. ACT 112: Negative or not required by law. Electronically signed by: Dl Bey M.D. 03/16/2024 8:[address] 03/16/24 07:13 CT thoracic spine w con HISTORY: 78 years-old Female Trauma acute back pain status post trauma COMPARISON: CT chest and lumbar spine studies of same day, CT abdomen and pelvis 07/14/2020 TECHNIQUE: Multiple axial CT images of the thoracic spine were obtained with IV contrast. A dose lowering technique was used consistent with the principals of ALARA. FINDINGS: Evak-zz-xkuwjqxo multilevel vertebral interspace narrowing and spondylotic spurring with moderate facet arthrosis. The visualized appearance of the bones. Mild age-indeterminate anterosuperior compression deformities at T11-L1 which are new/progressed from the 2020 exam. No retropulsion or paravertebral edema. Suboptimal evaluation of the central canal and neural foramen by CT technique. Mild mid thoracic dextroscoliosis. No acute displaced rib fracture seen. Trace pleural effusions. Please refer to the chest CT of same day for discussion of the intrathoracic findings. Right perinephric edema. IMPRESSION: Mild age-indeterminate T11-L1 compression deformities without retropulsion or paravertebral edema. These are new from the 2020 comparison. ACT 112: Negative or not required by law. The above report was generated using voice recognition software. It may contain grammatical, syntax or spelling errors. Electronically signed by: Johny Fischer M.D. 03/16/2024 8:48 AM Foot X-Ray 03/16/24 08:09 LEFT FOOT 3 VIEWS HISTORY: L foot ecchymosis COMPARISON: None. FINDINGS: Soft tissue swelling within the left forefoot. Mildly angulated transverse fractures of the necks of the second through fourth metatarsals. These demonstrate mild lateral angulation. No dislocation. No intra-articular extension. The Lisfranc joint is intact. The bones are osteopenic. Mild degenerative changes within the left foot. Plantar heel spur is noted. No radiopaque foreign bodies. IMPRESSION: Mildly angulated transverse fractures at the necks of the second through fourth metatarsals. ACT 112: Negative or not required by law. Electronically signed by: Dl Bey M.D. 03/16/2024 9:11 AM Supervising Physician Co-Signing Physician Notes Patient is a 78-year-old female with history of alcoholic cirrhosis, portal vein thrombosis on Coumadin, history of prior cell anemia and other medical problems presents with history of possible unwitnessed syncopal episode. Patient is a poor historian and is drowsy from pain medication given in ED. She was apparently found by family in the bed with bowel and bladder incontinence. She admits that she fell 2 days ago and was unsure of the events at the time. She admits to have back pain and left foot pain while in ED. She denies any chest pain, dyspnea, dysuria, hematuria. She admits to have an alcoholic drink 1 day prior to admission. Per ER staff, patient recently had left cataract surgery. Please review HPI for complete details of presentation. I personally reviewed blood work and imaging studies. EKG showed normal sinus rhythm with sinus arrhythmia, nonspecific ST-T wave abnormality, QTc 450. On review of outpatient records, patient has not recently seen gastroenterology. Physical Exam: Vitals signs as noted above General Appearance:Obese, no apparent distress Head: normocephalic, Atraumatic Eyes: normal inspection, EOMI, Left Eye Post surgical dressing Neck: supple, Trachea midline Respiratory/Chest: Normal breath sounds, CTA, No accessory muscle use Cardiovascular: S1, S2, No murmur,+Tachycardia Abdomen/GI:Soft, Non tender, +Protuberant, Bowel sounds present Back: Tender, decreased ROM due to pain Extremities/Musculoskeletal:normal inspection, 1+ edema, L foot Echymosis Neurologic/Psych:AAOX2, grossly no focal neurological deficits Skin: normal color, warm Hypertensive urgency Sepsis Urinary tract infection Lactic acidosis Syncopal episode Fall Acute metabolic encephalopathy Chronic thrombocytopenia Alcoholic cirrhosis Ongoing alcohol use disorder Thoracolumbar T11-L1 fractures Left second and fourth metatarsal fractures Mild troponin elevation--likely demand ischemia Agree with starting IV fluids, ertapenem Trend lactate levels Blood, urine cultures ordered Fall precautions, PT OT as able Orthopedics consulted Pain control Monitor for alcohol withdrawal IV labetalol as needed, monitor BP Patient currently refusing MRI spine, blood draws Appreciate GI input Hold Coumadin for now, resume as able Monitor INR I personally interviewed and examined at bedside. Patient's care is coordinated with Bess Gomez SIEBEL DEVELOPER. I have reviewed the advanced practitioner's documentation, and I agree with plan of care. Please refer to the documentation above for details of patient's presentation and for discussion of other issues. I spent a total [id number] coordinating, documenting, and providing care for this patient excluding time spent in the performance of separately billed services.
[2024-03-16] MEDS: ERTAPENEM SODIUM 1,000 MG in SYRINGE 0 ML IV SCH (13:18)
[2024-03-16] MEDS: SODIUM CHLORIDE 0.9% 1,000 ML IV SCH (13:18)
[2024-03-16] MEDS ORDERED: LABETALOL HCL IV 5 MG/ML 20ML IV PRN (13:35)
--- NOTE | 2024-03-16 15:59 | Orthopedic Consultation ---
Date of Service March 16, 2024 Assessment & Plan (1) Multiple closed fractures of metatarsal bone of left foot: She was seen and examined by Dr. Lang today as well. She has fractures of the 2nd, 3rd, and 4th metatarsals, which are in acceptable alignment/position. No surgical intervention needed. We will order a post op shoe which she can wear for weight bearing for the next month. No further follow up needed. History of Present Illness Reason for Consultation: . Requesting Physician: . Attending Physician: Jer Smith MD .Ann is a 78 year old patient admitted for confusion/metabolic encephalopathy s/p fall, and found to have left foot metatarsal fractures. She says she fell a week ago. Denies foot pain presently but said it does hurt to try weight bearing on the left foot. Allergies Allergy/AdvReac Type Severity Reaction Status Date / Time Penicillins Allergy Severe UNKNOWN Verified 03/16/24 10:27 aspirin Allergy Intermediate HIVES Verified 03/16/24 10:27 Home Medications Medication Instructions Recorded Confirmed Type atenolol 25 mg tablet 25 mg PO QAM 07/14/20 03/16/24 History mkgmclscj-XK-bkdzsoxvimtdz 25 30 ml PO Q4 PRN Cold Symptoms 07/14/20 03/16/24 History mg-10 mg-650 mg/30 mL oral liquid multivitamin with minerals-folic 1 tab PO DAILY ##0 07/14/20 03/16/24 History acid 80 mcg chewable tablet warfarin 1 mg tablet 1 mg PO DAILY 03/16/24 03/16/24 History Past Med/Surg History Problem List Syncope (Acute) Multiple closed fractures of metatarsal bone of left foot (Acute) Fracture of lumbar vertebra (Acute) Fracture of multiple thoracic vertebrae (Acute) Cirrhosis Metatarsal fracture Compression fracture of lumbar vertebra Compression fracture of body of thoracic vertebra SIRS (systemic inflammatory response syndrome) UTI (urinary tract infection) Metabolic encephalopathy Fall (Acute) Medical History Portal vein thrombosis Alcoholic cirrhosis Anemia 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 Physical Exam . alert, NAD. Left foot: +ecchymosis/swelling throughout her foot. No tenderness to palpation around the foot or ankle. NVI Results & Data Results & Data Laboratory Results . Diagnostic Findings .3 views of the left foot shows mildly displaced 2nd, 3rd, and 4th metatarsal neck fractures. PG Care Time/CCT Total # of Minutes Spent Total Time Spent with Patient: Total time spent is greater than 50% in coordination of care (as documented) at patient's floor/unit and/or counseling patient: Coding Level of Care Code 84654 IN/OBS CONSULT LVL 3,45M Diagnoses Multiple closed fractures of metatarsal bone of left foot S92.302A
[2024-03-16 17:07] LABS: Base Excess VBG -7.5 mEq/L; HCO3 VBG 19 mmol/L; Oxygen Saturation VBG < 60.0 %; PCO2 VBG 43 mmHg (38-50); PO2 VBG 38 mmHg; pH VBG 7.26 (7.36-7.41)
[2024-03-16 17:36] LABS: Appearance Urine Cloudy (Clear); Bacteria Urine Automated 3+ (None Seen); Bilirubin Urine 1+ (Negative); Blood Urine Negative (Negative); Cast Urine Automated 0-2 /lpf (0-2); Color Urine Dark Yellow; Glucose Urine UA Negative (Negative); Ketones Urine Negative (Negative); Leukocyte Esterase Urine 1+ (Negative); Nitrite Urine Positive (Negative); Protein Urine 1+ (Negative); Specific Gravity Urine > 1.045 (1.000-1.030); Urobilinogen Urine Positive (Negative)
[2024-03-16 18:04] LABS: Amphetamines+Metham, Urine Neg (Neg); Barbiturates, Urine Neg (Neg); Benzodiazepine, Urine Neg (Neg); Cocaine, Urine Neg (Neg); Fentanyl, Urine Neg (Neg); MDMA (Ecstacy), Urine Neg (Neg); Marijuana, Urine Neg (Neg); Methadone, Urine Neg (Neg); Opiate, Urine Pos (Neg); Phencyclidine, Urine Neg (Neg)
[2024-03-16] MEDS: LACTULOSE SYRUP 20 GM/30 ML UDC PO SCH (20:18)
[2024-03-17] MEDS: ACETAMINOPHEN 325 MG TAB PO PRN (00:28)
[2024-03-17 03:24] LABS: A calco-baum cmplx NotReported Not Detected (NotDetected); Bact fragilis Not Reported Not Detected (NotDetected); Blood Culture Id Panel See PCR Comment (NotDetected); C auris Not Reported Not Detected (NotDetected); CTX-M Resistant Gene Not Detected (NotDetected); Calbicans Not Reported Not Detected (NotDetected); Candida glabrata Not Reported Not Detected (NotDetected); Candida krusei Not Reported Not Detected (NotDetected); Cneoformans/gatti Not Reported Not Detected (NotDetected); Cparapsilosis Not Reported Not Detected (NotDetected); E cloacae compx Not Reported Not Detected (NotDetected); Efaecalis Not Reported Not Detected (NotDetected); Efaecium Not Reported Not Detected (NotDetected); Enterobacterales DETECTED (NotDetected); Enterobacterales Not Reported DETECTED (NotDetected); Escherichia coli Not Reported Not Detected (NotDetected); H influenzae Not Reported Not Detected (NotDetected); IMP Resistant Gene Not Detected (NotDetected); K aerogenes Not Reported Not Detected (NotDetected); KPC Resistant Gene Not Detected (NotDetected); Koxytoca Not Reported Not Detected (NotDetected); Kpneumoniae grp Not Reported DETECTED (NotDetected); Lmonocyt Not Reported Not Detected (NotDetected); N meningitidis Not Reported Not Detected (NotDetected); NDM Resistant Gene Not Detected (NotDetected); OXA 48 Like Resistant Gene Not Detected (NotDetected); P aeruginosa Not Reported Not Detected (NotDetected); Proteus spp Not Reported Not Detected (NotDetected); Salmonella spp Not Reported Not Detected (NotDetected); Staph lugdunensis Not Reported Not Detected (NotDetected); Staph spp. Not Reported Not Detected (NotDetected); Staphaureus Not Reported Not Detected (NotDetected); Staphepi Not Reported Not Detected (NotDetected); Stenmaltophilia Not Reported Not Detected (NotDetected); Strep agal(GrpB) Not Reported Not Detected (NotDetected); Strep pneum Not Reported Not Detected (NotDetected); Strep pyog (GrpA) Not Reported Not Detected (NotDetected); Strep spp Not Reported Not Detected (NotDetected); VIM Resistant Gene Not Detected (NotDetected); mcr-1 Colistin Resistant Gene Not Detected (NotDetected)
[2024-03-17 03:44] LABS: Hematocrit (blood only) 28.5 % (37.0-47.0); Hemoglobin 9.2 g/dl (12.0-16.0); Mean Corpuscular Hemoglobin 35.2 pg (25.0-34.0); Mean Corpuscular Hgb Conc 32.3 g/dL (32.0-36.0); Mean Corpuscular Volume 109.2 fL (80.0-100.0); Mean Platelet Volume 12.7 fL (9.4-12.4); Platelet Count 43 K/uL (130-400); RDW Coefficient of Variation 18.5 % (11.5-14.5); Red Blood Count 2.61 M/uL (4.20-5.40)
[2024-03-17 03:48] LABS: Klebsiella pneumoniae group DETECTED (NotDetected)
[2024-03-17 03:53] LABS: Albumin Globulin Ratio 0.6 (0.9-2); Albumin Level 1.9 gm/dl (3.4-5.0); BUN Creatinine Ratio 24.5 (10-20); Bilirubin,Total 4.7 mg/dl (0.2-1.0); Calcium 7.7 mg/dl (8.6-10.3); Creatinine Clr Calc Pharmacy 59.2 ml/min; Est GFR (African American) 64.9 ml/min; Globulin 3.1 gm/dl (2.5-4.0); Magnesium 1.5 mg/dl (1.7-2.4); Potassium 3.8 mmol/L (3.5-5.1)
[2024-03-17 03:59] LABS: Troponin I High Sensitivity 15.6 pg/ml (0-14)
[2024-03-17 04:01] LABS: INR 2.9 (0.9-1.1)
[2024-03-17] MEDS: KETOROLAC TROMETHAMINE 15 MG/ML VIAL IV ONE (06:03)
[2024-03-17] MEDS: LIDOCAINE 5% 1 PATCH TD SCH (06:03)
--- NOTE | 2024-03-17 08:39 | Orthopedic Consultation ---
Date of Consultation March 17, 2024 Assessment & Plan (1) Fracture of lumbar vertebra: Thoracic compression fractures. Plan at this time I would just have her undergo transfers and ambulation as tolerated in light of her other injuries. Would not recommend a brace at this point. Her pain is relatively controlled. She should lift no more than 5 pounds. History of Present Illness Reason for Consultation: Thoracic compression fractures Attending Physician: Chivo Bower MD History of Present Illness This is a 78-year-old female that submitted the hospital multiple medical issues. Multiple compression fracture of thoracic spine noted on imaging during her workup. This morning she states her back pain is well-controlled. She denies any numbness or tingling in the arms or lower extremities. She has no complaints. Allergies Allergy/AdvReac Type Severity Reaction Status Date / Time Penicillins Allergy Severe UNKNOWN Verified 03/16/24 10:27 aspirin Allergy Intermediate HIVES Verified 03/16/24 10:27 Home Medications Medication Instructions Recorded Confirmed Type atenolol 25 mg tablet 25 mg PO QAM 07/14/20 03/16/24 History gldrkyyta-AJ-[id number] 25 30 ml PO Q4 PRN Cold Symptoms 07/14/20 03/16/24 History mg-10 mg-650 mg/30 mL oral liquid multivitamin with minerals-folic 1 tab PO DAILY ##0 07/14/20 03/16/24 History acid 80 mcg chewable tablet warfarin 1 mg tablet 1 mg PO DAILY 03/16/24 03/16/24 History Patient History Medical History Portal vein thrombosis Alcoholic cirrhosis Anemia 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 She is neurologically intact to testing lower extremities. Results & Data Vital Signs (Past 12 Hours) Vital Signs Temp Pulse Pulse Resp BP Pulse Ox O2 Del Method 03/17/24 07:40 36.5 C 92 H 19 123/54 L 98 Nasal Cannula 03/17/24 04:47 36.7 C 72 18 124/83 100 Nasal Cannula 03/16/24 23:10 36.7 C 76 20 117/74 98 Room Air 03/16/24 22:31 68 O2 Flow Rate 03/17/24 07:40 2 03/17/24 04:47 2.0 03/16/24 23:10 03/16/24 22:31
[2024-03-17] MEDS: ATENOLOL 25 MG TABLET PO SCH (10:07)
[2024-03-17] MEDS: FOLIC ACID 1 MG TAB PO SCH (10:07)
[2024-03-17] MEDS: THIAMINE HCL 100 MG TAB PO SCH (10:07)
--- NOTE | 2024-03-17 12:47 | Gastroenterology Progress Note ---
Date of Service March 17, 2024 Assessment & Plan (1) Cirrhosis: Plan: Patient has cirrhosis of the liver it is secondary to be due to alcohol of note she was seen in 2020 at that time she was also told that she has cirrhosis of the liver secondary to alcohol but she continues to drink as she has not seen any outpatient GI and she does not seem to be very interested in getting care for the cirrhosis she states she has been doing okay for the last 20 years of note her platelet count is low her albumin is low at the current time I would 1. Continue with lactulose to have 3-4 bowel movements a day she has had episodes of confusion which may be contributing to the falls that she is having 2. Needs to establish outpatient care for her cirrhosis 3. Will need an EGD and a colonoscopy to evaluate for varices 4. Abstain from alcohol 5. Will need outpatient evaluation for ERCP as there is a stone in the common bile duct which can cause an obstruction at any time Thank you for allowing us to take part in the care of your patient we will continue to follow her with you Admission and Anticipated Discharge Date Admission Date: March 16, 2024 Subjective Patient appears comfortable today as per the nurse she is more awake and alert compared to yesterday she was started on lactulose and she had 4 bowel movements she states he may have had 1 bowel movement today also no new complaints at the current time. The patient refused to undergo an MRCP of note she has a history of alcohol induced cirrhosis but she still continues to drink she has not seen a set up mechanic coating machines on the outpatient setting she has multiple problems including multiple falls she seems a bit reluctant to undergo medical treatment and she states that she has been well for a long time and will continue to be so Review of Systems Review of Systems: A 10 point review of systems was done Physical Exam Constitutional: WD/WN, vitals as above Neck: Supple Respiratory: normal respiratory effort, lungs clear to auscultation Cardiovascular: S1 and S2 Gastrointestinal (Abdomen): normal bowel sounds, soft, nontender, no hepatosplenomegaly Results & Data Results & Data Vital Signs (Past 12 Hours) Vital Signs Temp Pulse Resp BP BP Pulse Ox O2 Del Method 03/17/24 11:34 36.7 C 82 19 98/65 L 97 Nasal Cannula 03/17/24 07:40 36.5 C 92 H 19 123/54 L 98 Nasal Cannula 03/17/24 04:47 36.7 C 72 18 124/83 100 Nasal Cannula O2 Flow Rate 03/17/24 11:34 2 03/17/24 07:40 2 03/17/24 04:47 2.0 PG Care Time/CCT Total # of Minutes Spent Total Time Spent with Patient: Total time spent is greater than 50% in coordination of care (as documented) at patient's floor/unit and/or counseling patient: Coding Level of Care Code 30103 SUB INP/OBS CARE 2/35MIN Diagnoses Cirrhosis K74.60 Hepatic cirrhosis type: unspecified hepatic cirrhosis (1) Cirrhosis Hepatic cirrhosis type: unspecified hepatic cirrhosis
--- NOTE | 2024-03-17 14:17 | Hospitalist Progress Note ---
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 Patient reports that while she was going to the bathroom, she felt lightheaded [denies chest pain/funny sensation in the chest/shortness of breath around the time] and weak and fell [hit back on the wall of the bathroom]. She was found by her granddaughter incontinent of stool and urine on the day of presentation. She is being managed for the following: Fall Metabolic encephalopathy: Patient presenting from home after being found by her family confused and incontinent of stool and urine. Seems like patient was likely down for about 2 days. Admitting CPK was 20 In the ED, found to have T11-L1 compression fractures and left 2nd through 4th metatarsal fractures, SIRS, and possible UTI. NH3 level 45 [wnl] Admitting imagings CTAP: age-indeterminate mild superior endplate compression deformities from T11-L1. Cirrhotic liver noted. Cholelithiasis, no GB wall thickening. Punctate nonobstructing stone within the cystic duct/proximal CBD. C-spine CT/head CT/Face CT:: No acute fracture T-spine CT/L-spine CT/Chest CT: T11-L1 fracture as above. Left foot x-ray: Mildly angulated transverse fracture at the necks of the 2nd through 4th metatarsals Echo: EF 60 to 65%, mild concentric LVH, left ventricular systolic function normal. For additional work up of possible syncope, MRI has been ordered at presentation, will follow. patient declining further testing. Likely Zio patch monitor upon discharge. Severe Sepsis POA, secondary to UTI: Lactate, WBC and heart rate elevated at presentation. status post IV fluid resuscitation, lactate down trended. UTI (urinary tract infection): Bacteremia s/p IVF, lactate down trended History of ESBL E. coli, patient started on ertapenem 03/16 Follow blood and urine culture. Preliminary positive for gram-negative bacilli. ID consult. Continue with ertapenem. Alcoholic cirrhosis: Lost to follow up with GI Alcohol abuse Last EGD 2012 - no esophageal or gastric varices, mild portal gastropathy. Admitting LFT elevated [T. bili 6.5, ALP 135, AST 45] Unclear current alcohol use, UDS positive for opiates/rest either pending or negative. Alcohol level negative. Recommend patient cease all alcohol use. Low-sodium diet. Avoid hepatotoxic's. GI evaluated, continue with lactulose with a goal of 3-4 bowel movements a day, follow-up with hepatology on discharge, MRCP ordered - pt declining, Outpatient ERCP given a stone in the CBD. Outpatient EGD and colonoscopy. Follow patient clinically, labs in AM. RAMONITA S protocol, continue with thiamine and folic acid Demand ischemia: trop mildly elevated, flat trend, pt w/ no chest pain. Likely demand ischemia 2/2 acute illness. Portal vein thrombosis: On Coumdin, INR 3.0, hold Coumadin for now given fall and multiple fractures . Hb 9.2 from 11. 1 yesterday. INR 2.9 today. Resume once Hb deemed stable. Compression fracture of body of thoracic vertebra: Compression fracture of lumbar vertebra: CT shows compression fractures T11-L1 MRI thoracic and lumbar ordered, patient declining Spine ortho evaled, no brace, She should lift no more than 5 pounds.. C/w pain Mx. P/OT. Metatarsal fracture: Left foot XR shows: Mildly angulated transverse fractures at the necks of the second through fourth metatarsals. Ortho evaled, no sx Ix, recommends post op shoe for weight bearing x 1 month. no f/u needed per ortho. DVT PROPHYLAXIS: SCDs when INR < 2.0 Admission and Anticipated Discharge Date Admission Date: March 16, 2024 Subjective Patient appears comfortable today as per the nurse she is more awake and alert compared to yesterday she was started on lactulose and she had 4 bowel movements she states he may have had 1 bowel movement today also no new complaints at the current time. The patient refused to undergo an MRCP of note she has a history of alcohol induced cirrhosis but she still continues to drink she has not seen a artist agent on the outpatient setting she has multiple problems including multiple falls she seems a bit reluctant to undergo medical treatment and she states that she has been well for a long time and will continue to be so Physical Exam Physical Exam: General Appearance:Obese, no apparent distress Head: normocephalic, Atraumatic Eyes: normal inspection, EOMI, Left Eye Post surgical dressing Neck: supple, Trachea midline Respiratory/Chest: Normal breath sounds, CTA, No accessory muscle use Cardiovascular: S1, S2, No murmur,+Tachycardia Abdomen/GI:Soft, Non tender, +Protuberant, Bowel sounds present Back: Tender, decreased ROM due to pain Extremities/Musculoskeletal:normal inspection, 1+ edema, L foot Echymosis Neurologic/Psych:AAOX2, grossly no focal neurological deficits Skin: normal color, warm Results & Data Results & Data Vital Signs (Past 12 Hours) Vital Signs Temp Pulse Resp BP BP Pulse Ox O2 Del Method 03/17/24 11:34 36.7 C 82 19 98/65 L 97 Nasal Cannula 03/17/24 07:40 36.5 C 92 H 19 123/54 L 98 Nasal Cannula 03/17/24 04:47 36.7 C 72 18 124/83 100 Nasal Cannula O2 Flow Rate 03/17/24 11:34 2 03/17/24 07:40 2 03/17/24 04:47 2.0
[2024-03-17] MEDS ORDERED: NEOMYCIN/POLYMYXIN/DEXAMETHA OP OINT 3.5 GM TUBE OP PRN (15:48)
[2024-03-17] MEDS: prednisoLONE acetate 1% OP SUSP 5 ML BTL OP SCH (17:28)
[2024-03-17] MEDS: OFLOXACIN 0.3% 75 DROPS/5 ML BTL OP SCH (17:28)
[2024-03-18 09:14] LABS: Albumin Level 2.2 gm/dl (3.4-5.0); Bilirubin,Total 4.3 mg/dl (0.2-1.0); Calcium 8.1 mg/dl (8.6-10.3); Est GFR (African American) 48.9 ml/min; Est GFR (Non-African American) 42.2 ml/min; Magnesium 1.5 mg/dl (1.7-2.4); Phosphorus 2.3 mg/dl (2.5-4.9); Potassium 3.8 mmol/L (3.5-5.1); Total Protein 5.7 gm/dl (6.0-8.3)
[2024-03-18 10:27] LABS: Hematocrit (blood only) 30.8 % (37.0-47.0); Hemoglobin 10.2 g/dl (12.0-16.0); Mean Corpuscular Hemoglobin 34.9 pg (25.0-34.0); Mean Corpuscular Hgb Conc 33.1 g/dL (32.0-36.0); Mean Corpuscular Volume 105.5 fL (80.0-100.0); Mean Platelet Volume 12.3 fL (9.4-12.4); Platelet Count 37 K/uL (130-400); RDW Coefficient of Variation 17.4 % (11.5-14.5); RDW Standard Deviation 68.2 fL (36.4-46.3); Red Blood Count 2.92 M/uL (4.20-5.40); White Blood Count 7.39 K/ul (4.8-10.8)
[2024-03-18 10:55] LABS: INR 2.7 (0.9-1.1); Prothrombin Time 27.2 Seconds (9.0-12.0)
[2024-03-18] MEDS: oxyCODONE HCL IR 5 MG TAB (IMMEDIATE RELEASE) PO PRN (11:03)
[2024-03-18] MEDS ORDERED: POTASSIUM PHOS 3 MMOL/1 ML INFUSION IV STA (12:01)
--- NOTE | 2024-03-18 12:10 | Hospitalist Progress Note ---
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 Patient reports that while she was going to the bathroom, she felt lightheaded [denies chest pain/funny sensation in the chest/shortness of breath around the time] and weak and fell [hit back on the wall of the bathroom]. She was found by her granddaughter incontinent of stool and urine on the day of presentation. She is being managed for the following: Fall Metabolic encephalopathy: Patient presenting from home after being found by her family confused and incontinent of stool and urine. Seems like patient was likely down for about 2 days. Admitting CPK was 20 In the ED, found to have T11-L1 compression fractures and left 2nd through 4th metatarsal fractures, SIRS, and possible UTI. NH3 level 45 [wnl] Admitting imagings CTAP: age-indeterminate mild superior endplate compression deformities from T11-L1. Cirrhotic liver noted. Cholelithiasis, no GB wall thickening. Punctate nonobstructing stone within the cystic duct/proximal CBD. C-spine CT/head CT/Face CT:: No acute fracture T-spine CT/L-spine CT/Chest CT: T11-L1 fracture as above. Left foot x-ray: Mildly angulated transverse fracture at the necks of the 2nd through 4th metatarsals Echo: EF 60 to 65%, mild concentric LVH, left ventricular systolic function normal. For additional work up of possible syncope, MRI has been ordered at presentation, will follow. Pt agreed for MRI if ativan given to manage her anxiety, prn ativan prior to mri ordered. Likely Zio patch monitor upon discharge. Severe Sepsis POA, secondary to UTI: Lactate, WBC and heart rate elevated at presentation. status post IV fluid resuscitation, lactate down trended. UTI (urinary tract infection): Bacteremia s/p IVF, lactate down trended History of ESBL E. coli, patient started on ertapenem 03/16 Follow blood and urine culture. Preliminary positive for gram-negative bacilli. ID consult. Continue with ertapenem. Alcoholic cirrhosis: Lost to follow up with GI Alcohol abuse Last EGD 2012 - no esophageal or gastric varices, mild portal gastropathy. Admitting LFT elevated [T. bili 6.5, ALP 135, AST 45] Unclear current alcohol use, UDS positive for opiates/rest either pending or negative. Alcohol level negative. Recommend patient cease all alcohol use. Low-sodium diet. Avoid hepatotoxic's. GI evaluated, continue with lactulose with a goal of 3-4 bowel movements a day, follow-up with hepatology on discharge, MRCP ordered - pt declining, Outpatient ERCP given a stone in the CBD. Outpatient EGD and colonoscopy. Follow patient clinically, labs in AM. RAMONITA S protocol, continue with thiamine and folic acid Demand ischemia: trop mildly elevated, flat trend, pt w/ no chest pain. Likely demand ischemia 2/2 acute illness. Portal vein thrombosis: On Coumdin, Hb stable, resume home coumadin, f/u pt/inr. follow HnH closely given fall and multiple fractures . Compression fracture of body of thoracic vertebra: Compression fracture of lumbar vertebra: CT shows compression fractures T11-L1 MRI thoracic and lumbar ordered, patient declining Spine ortho evaled, no brace, She should lift no more than 5 pounds.. C/w pain Mx. P/OT. Metatarsal fracture: Left foot XR shows: Mildly angulated transverse fractures at the necks of the second through fourth metatarsals. Ortho evaled, no sx Ix, recommends post op shoe for weight bearing x 1 month. no f/u needed per ortho. DVT PROPHYLAXIS: SCDs when INR < 2.0 PT/OT, CM to assist w/ dc plan. Admission and Anticipated Discharge Date Admission Date: March 16, 2024 Subjective Patient was seen and examined at bedside. Patient more awake and alert today, reports back pain, encouraged her to get MRI for us to get better picture, she agreed with Ativan dose prior to MRI. Communicated with RN. Patient reports eating okay and moving bowels today, denies other ROS. Physical Exam Physical Exam: General Appearance:Obese, no apparent distress Head: normocephalic, Atraumatic Eyes: normal inspection, EOMI, Left Eye Post surgical dressing Neck: supple, Trachea midline Respiratory/Chest: Normal breath sounds, CTA, No accessory muscle use Cardiovascular: S1, S2, No murmur,+Tachycardia Abdomen/GI:Soft, Non tender, +Protuberant, Bowel sounds present Back: Tender, decreased ROM due to pain Extremities/Musculoskeletal:normal inspection, 1+ edema, L foot Echymosis Neurologic/Psych:AAOX2, grossly no focal neurological deficits Skin: normal color, warm Results & Data Results & Data Vital Signs (Past 12 Hours) Vital Signs Temp Pulse Pulse Resp BP BP Pulse Ox 03/18/24 11:17 36.5 C 77 18 116/66 95 03/18/24 08:00 75 03/18/24 08:00 03/18/24 07:40 36.5 C 76 20 113/65 94 03/18/24 03:52 36.9 C 18 L 71 H 106/58 L 95 O2 Del Method 03/18/24 11:17 Room Air 03/18/24 08:00 03/18/24 08:00 Room Air 03/18/24 07:40 Room Air 03/18/24 03:52 Room Air
--- NOTE | 2024-03-18 12:31 | Gastroenterology Progress Note ---
Date of Service March 18, 2024 Assessment & Plan (1) Cirrhosis: Plan: Patient is a little more confused as compared to yesterday and it appears she has not been taking her lactulose she has probably got alcoholic cirrhosis I am not sure whether she still continues to drink she has not had any GI follow-up in a long time however the nurse does tell me that she has agreed to her MRI and she is scheduled to get it today at the current time I would 1. Lactulose to ensure she has 4-5 bowel movements a day 2. Will need endoscopic evaluation as an outpatient as her last endoscopy was about 10 years ago and she may have varices 3. Will need to establish care as outpatient with hepatology once these acute issues are resolved 4. Will follow-up on the MRCP and MRI of the liver Thank you for allowing us to take part in the care of your patient we will co faye to follow her with you Admission and Anticipated Discharge Date Admission Date: March 16, 2024 Subjective Patient is about the same as yesterday however she is complaining of severe back pain today of note she does have compression fractures in her back she is also little bit confused and as per the nurse she has been refusing her lactulose when asked she denies any specific GI complaints no dysphagia or reflux nausea vomiting or abdominal pain as mentioned she has been refusing her lactulose Review of Systems Review of Systems: Difficult to obtain review of systems in view of mental status Physical Exam Constitutional: Appears a little confused asked and in mild discomfort Respiratory: Clear to auscultation anteriorly Cardiovascular: S1 and S2 Gastrointestinal (Abdomen): Soft no tenderness or masses appreciated Results & Data Results & Data Vital Signs (Past 12 Hours) Vital Signs Temp Pulse Pulse Resp BP BP Pulse Ox 03/18/24 11:17 36.5 C 77 18 116/66 95 03/18/24 08:00 75 03/18/24 08:00 03/18/24 07:40 36.5 C 76 20 113/65 94 03/18/24 03:52 36.9 C 18 L 71 H 106/58 L 95 O2 Del Method 03/18/24 11:17 Room Air 03/18/24 08:00 03/18/24 08:00 Room Air 03/18/24 07:40 Room Air 03/18/24 03:52 Room Air PG Care Time/CCT Total # of Minutes Spent Total Time Spent with Patient: Total time spent is greater than 50% in coordination of care (as documented) at patient's floor/unit and/or counseling patient: Coding Level of Care Code 94855 SUB INP/OBS CARE 2/35MIN History Expanded Problem Focused Exam Expanded Problem Focused Medical Decision Making Moderate Complexity Diagnoses Cirrhosis K74.60 Hepatic cirrhosis type: unspecified hepatic cirrhosis (1) Cirrhosis Hepatic cirrhosis type: unspecified hepatic cirrhosis
[2024-03-18] MEDS: MAGNESIUM SULFATE / D5W 1 GM/100 ML BAG IV SCH (13:18)
[2024-03-18] MEDS: POTASSIUM PHOSPHATE 15 MMOL in SODIUM CHLORIDE 0.9% 250 ML IV ONE (13:18)
[2024-03-18] MEDS: WARFARIN SOD 1 MG TAB PO SCH (16:32)
[2024-03-18 23:27] LABS: Codeine Urine NEGATIVE ng/mL (<50); Hydrocodone Urine NEGATIVE ng/mL (<50); Hydromor Urine NEGATIVE ng/mL (<50); Morphine Urine 6880 ng/mL (<50); Norhydrocodone Conf Ur NEGATIVE ng/mL (<50); Noroxycodone Urine NEGATIVE ng/mL (<50); Oxycodone Urine NEGATIVE ng/mL (<50); Oxymorph Urine NEGATIVE ng/mL (<50)
[2024-03-19 07:41] LABS: Hematocrit (blood only) 31.3 % (37.0-47.0); Hemoglobin 10.2 g/dl (12.0-16.0); Mean Corpuscular Hemoglobin 34.7 pg (25.0-34.0); Mean Corpuscular Hgb Conc 32.6 g/dL (32.0-36.0); Mean Corpuscular Volume 106.5 fL (80.0-100.0); Platelet Count 41 K/uL (130-400); RDW Coefficient of Variation 17.5 % (11.5-14.5); Red Blood Count 2.94 M/uL (4.20-5.40); White Blood Count 16.12 K/ul (4.8-10.8)
[2024-03-19 07:53] LABS: BUN Creatinine Ratio 33.3 (10-20); Calcium 8.2 mg/dl (8.6-10.3); Est GFR (African American) 64.2 ml/min; Est GFR (Non-African American) 55.4 ml/min; Magnesium 1.9 mg/dl (1.7-2.4); Phosphorus 3.3 mg/dl (2.5-4.9); Potassium 3.9 mmol/L (3.5-5.1)
[2024-03-19 08:06] LABS: Prothrombin Time 20.3 Seconds (9.0-12.0)
--- NOTE | 2024-03-19 10:19 | Gastroenterology Progress Note ---
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 and others below admitted w/ change on consciousness - MRCP - Pending results will need OP EUS/ERCP - Follow blood/urine cultures - She needs to re-establish with [facility] at discharge - OP EGD/Colonoscopy - Continue Lactulose titrated to 3-4 BMs daily - MELD labs every 6 months - ABD imaging w/ AFP every 6 months - EGD every 1-2 years - No ETOH - No NSAIDs - Avoid hepatotoxin - Low NA diet, less than 2G daily - Less than 2G acetaminophen containing products daily - ED for emergencies - Please call with any questions or concerns I spent a total of 55 minutes on the date of service in review of patient's record, and previously obtained information in person and appropriate medical visit, discussion and education of plan, with patient and/or caregiver, placing orders for tests/referral/procedures as medically necessary and documentation of pertinent clinical information in patient's medical records for their visit today. Admission and Anticipated Discharge Date Admission Date: March 16, 2024 Supervising Physician Co-Signing Physician Notes I examined the patient and reviewed the medical record, laboratory data and imaging studies. I agree with the assessment and plan of care as suggested by the advanced practice provider. Patient is oriented to person and place but not to time she states she is not feeling great but is about the same as yesterday of note she was more confused this morning and she had a CT scan done her white cell count is also a little elevated at the current time I would recommend 1. Continue with lactulose to have 3-4 bowel movements a day 2. Agree with ID evaluation in light of her elevated WBC count she only had trace pelvic fluid on recent CAT scan so I do not think she would have much ascites that could be tapped diagnostically however would await ID input on that 3. Consider hematology input on regarding need for anticoagulation 4. Follow-up on MRI when done 5. Will need endoscopic evaluation when more stable to rule out varices as well as she has not had a screening for more than 10 years 6. Patient will need established heart pathology outpatient care Thank you for allowing us to take part in the care of your patient we will follow her with you Subjective Pt was seen and evaluated, chart reviewed. Awake. No oriented to place or time. Denies abd pain. Reports back pain. Denies black or bloody stools. Last BM reported on 03/17/24 - ammonia level this AM was WNL, 25 Diagnosis: ETOH induced cirrhosis Decompensations Varices: last EGD in 2012, Mild portal gastropathy. No varices. Ascites: trace on imaging HE: on Lactulose Screenings: MELD: 20 HCC: due in September Varices: overdue Immunizations: status unknown Review of Systems Review of Systems: All other findings negative except as noted in HPI. Physical Exam Constitutional: WD/WN, vitals as above Respiratory: normal respiratory effort, lungs clear to auscultation Gastrointestinal (Abdomen): normal bowel sounds, soft, nontender, no hepatosplenomegaly Skin: no rashes, warm and dry Results & Data Results & Data Vital Signs (Past 12 Hours) Vital Signs Temp Pulse Pulse Resp BP Pulse Ox O2 Del Method 03/19/24 07:50 36.6 C 69 20 150/81 H 92 Room Air 03/19/24 04:00 36.3 C L 76 22 120/55 L 94 Room Air 03/19/24 00:00 63 03/19/24 00:00 Room Air 03/18/24 23:18 36.5 C 90 22 129/74 97 Room Air PG Care Time/CCT Total # of Minutes Spent Total Time Spent with Patient: Total time spent is greater than 50% in coordination of care (as documented) at patient's floor/unit and/or counseling patient: Coding Level of Care Code 15560 SUB INP/OBS CARE 3/50MIN Diagnoses Cirrhosis K74.60 Hepatic cirrhosis type: unspecified hepatic cirrhosis (1) Cirrhosis Hepatic cirrhosis type: unspecified hepatic cirrhosis
--- NOTE | 2024-03-19 10:51 | CT Scan Report ---
CT head/brain wo con CLINICAL HISTORY: ams, on blood thinner Technique: Contiguous axial CT images of the head were acquired from the base of the skull to the nazanin mirza without intravenous contrast administration. Images were viewed in brain, subdural and bone backus hospitalo ws. Automated dose lowering techniques and/or adjustment according to patient size were utilized for this exam. Comparison: Comparison is made to CT head 03/16/2024 Findings: Areas of decreased attenuation are present in the periventricular and subcortical white matter bilate rally consistent with small vessel ischemic disease. Generalized cerebral atrophy with commensurate e nlargement of the ventricles, sulci, and cisterns is also present. There is no acute intracranial hem orrhage or evidence of acute territorial infarction. No shift of the midline structures, mass effect, or extra-axial abnormalities are shown. Atherosclerotic calcifications are present in the intracran ial segments of the internal carotid arteries. Imaged portions of the paranasal sinuses and mastoid air cells are clear. Hyperdense left lobe is un changed. There are no acute fractures of the calvaria or scalp swelling. Impression: 1. No acute abnormality and in particular no evidence of fracture or intracranial hemorrhage. 2. Hyperdense left globe is unchanged. ACT 112: Negative or not required by law. Electronically signed by: Mikel Hairston M.D. 03/19/2024 10:50 AM
[2024-03-19] MEDS: cefTRIAXone SODIUM 2,000 MG/50 ML BAG IV SCH (11:00)
--- NOTE | 2024-03-19 13:08 | Infectious Disease Consult ---
Date of Service March 19, 2024 Telehealth Information I performed this visit using a real-time telehealth connection between my location and the patients location ([facility]). After connecting through interactive tele-video, patient was identified by name and date of and/or wristband check.Patient (or authorized healthcare customer counter representative) was informed that this was a telemedicine visit and it was being conducted confidentially over secure lines. My office door was closed and no one else was present in the room with me.Patient (or authorized healthcare customer counter representative) provided consent to proceed with the visit, expressed an understanding of privacy and security of the telemedicine visit, and gave permission to have a hospital customer counter representative in the room in order to assist with the visit and to conduct portions of the visit, as needed. I informed the patient (or authorized healthcare customer counter representative) that I reviewed their record and presented the opportunity for them to ask any questions regarding the visit today. The patient agreed to participate. Assessment & Plan (1) Bacteremia due to Klebsiella pneumoniae: (2) Cirrhosis: (3) Bile duct calculus: (4) Multiple closed fractures of metatarsal bone of left foot: Plan At this point, based on the clinical picture and workup, I have no clear source for her Klebsiella pneumoniae bacteremia. The organism growing in the urine was E coli which makes urinary tract a less likely source. Given the small stone observed in the cystic duct/proximal common bile duct on the CT scan, I would think about cholangitis. Meanwhile, given that the Klebsiella pneumoniae is susceptible to cefazolin, I would recommend stopping IV ceftriaxone and starting IV cefazolin 2 g every 8 hours. MRCP as recommended by the GI team. If the MRCP and endoscopic workup by GI came back negative, we will likely treat as uncomplicated bacteremia with a 7 day course of IV/step-down oral antibiotic. Thank you for consulting Infectious Disease. We will continue to follow. History of Present Illness History of Present Illness Ms. Portillo is a 78-year-old woman with medical history of alcoholic liver cirrhosis, portal vein thrombosis, and HTN who was admitted to [facility] on 03/16/2024 after a fall at her home. Apparently, the patient mentioned that she fell 2 days prior to presentation and she was found by her granddaughter confused and incontinent of stool and urine. On presentation, except for elevated blood pressure at 154/108, the rest of the vitals were within normal limits. Initial blood workup showed leukocytosis of 16 (ANC 15), mildly elevated AST and alkaline phosphatase, elevated lactic acid at 4.6, pyuria of 11-20 with a 3+ bacteriuria and shortly after admission, blood culture came back positive for Klebsiella pneumoniae detected via PCR. Imaging studies on presentation showed T11-L1 compression fractures and left 2nd through 4th metatarsal fractures. CT abdomen pelvis showed thickening and hypodensity/edema within the left posterior lateral abdominal wall musculature, cirrhotic liver, cholelithiasis with no gallbladder wall thickening and the punctate nonobstructive stone within the cystic duct/proximal common bile duct. Id team was consulted for further recommendations and to help guide antibiotic treatment. Allergies Allergy/AdvReac Type Severity Reaction Status Date / Time Penicillins Allergy Severe UNKNOWN Verified 03/16/24 10:27 aspirin Allergy Intermediate HIVES Verified 03/16/24 10:27 Home Medications Medication Instructions Recorded Confirmed Type atenolol 25 mg tablet 25 mg PO QAM 07/14/20 03/16/24 History [id number] 25 30 ml PO Q4 PRN Cold Symptoms 07/14/20 03/16/24 History mg-10 mg-650 mg/30 mL oral liquid multivitamin with minerals-folic 1 tab PO DAILY ##0 07/14/20 03/16/24 History acid 80 mcg chewable tablet warfarin 1 mg tablet 1 mg PO DAILY 03/16/24 03/16/24 History Patient History Medical History Portal vein thrombosis Alcoholic cirrhosis Anemia 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 Physical Exam Couldn't be obtained as the encounter was via telemed. Results & Data Vital Signs (Past 12 Hours) Vital Signs Temp Pulse Resp BP Pulse Ox O2 Del Method 03/19/24 11:49 36.7 C 103 H 20 148/80 H 94 Room Air 03/19/24 07:50 36.6 C 69 20 150/81 H 92 Room Air 03/19/24 04:00 36.3 C L 76 22 120/55 L 94 Room Air Laboratory Results Microbiology: 03/16: 1 of 2 bottles of blood culture positive for Klebsiella pneumoniae 03/16: Urine culture positive for E coli 03/16: Urine culture again with probable skin meek Diagnostic Findings CT scan of the abdomen and pelvis performed on 03/16: 1. Age-indeterminate mild superior endplate compression deformities from T11 through L1. 2. Thickening and hypodensity/edema within the left posterior lateral abdominal wall musculature. This has improved may represent an old intramuscular hematoma. An acute soft tissue contusion is not excluded. 3. Cirrhotic liver again noted. 4. Cholelithiasis. No gallbladder wall thickening. There is also a punctate nonobstructing stone within the cystic duct/proximal common bile duct. (2) Cirrhosis Hepatic cirrhosis type: unspecified hepatic cirrhosis
--- NOTE | 2024-03-19 15:35 | Hospitalist Progress Note ---
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 Patient reports that while she was going to the bathroom, she felt lightheaded [denies chest pain/funny sensation in the chest/shortness of breath around the time] and weak and fell [hit back on the wall of the bathroom]. She was found by her granddaughter incontinent of stool and urine on the day of presentation. She is being managed for the following: Fall Metabolic encephalopathy: Patient presenting from home after being found by her family confused and incontinent of stool and urine. Seems like patient was likely down for about 2 days. Admitting CPK was 20 In the ED, found to have T11-L1 compression fractures and left 2nd through 4th metatarsal fractures, SIRS, and possible UTI. NH3 level 45 [wnl] Admitting imagings CTAP: age-indeterminate mild superior endplate compression deformities from T11-L1. Cirrhotic liver noted. Cholelithiasis, no GB wall thickening. Punctate nonobstructing stone within the cystic duct/proximal CBD. C-spine CT/head CT/Face CT:: No acute fracture T-spine CT/L-spine CT/Chest CT: T11-L1 fracture as above. Left foot x-ray: Mildly angulated transverse fracture at the necks of the 2nd through 4th metatarsals Echo: EF 60 to 65%, mild concentric LVH, left ventricular systolic function normal. For additional work up of possible syncope, MRI has been ordered at presentation, will follow. Pt agreed for MRI if ativan given to manage her anxiety, prn ativan prior to mri ordered. MRI orders placed again today as pt agreed for MRI today. Likely Zio patch monitor upon discharge. Severe Sepsis POA, secondary to UTI: Lactate, WBC and heart rate elevated at presentation. status post IV fluid resuscitation, lactate down trended. UTI (urinary tract infection): Bacteremia s/p IVF, lactate down trended History of ESBL E. coli, patient started on ertapenem 03/16 Follow blood and urine culture. UCx +ve for E coli and Bl Cx +ve for K. pneumo niae ID owensescalate to cefazolin 03/19, recommends MRCP. follow MRCP. Alcoholic cirrhosis: Lost to follow up with GI Alcohol abuse Last EGD 2012 - no esophageal or gastric varices, mild portal gastropathy. Admitting LFT elevated [T. bili 6.5, ALP 135, AST 45] Unclear current alcohol use, UDS positive for opiates/rest either pending or negative. Alcohol level negative. Recommend patient cease all alcohol use. Low-sodium diet. Avoid hepatotoxic's. GI evaluated, continue with lactulose with a goal of 3-4 bowel movements a day, follow-up with hepatology on discharge, MRCP ordered - pt declining, Outpatient ERCP given a stone in the CBD. Outpatient EGD and colonoscopy. Follow patient clinically, labs in AM. RAMONITA S protocol, continue with thiamine and folic acid Demand ischemia: trop mildly elevated, flat trend, pt w/ no chest pain. Likely demand ischemia 2/2 acute illness. Portal vein thrombosis: On Coumdin, Hb stable, resume home coumadin, f/u pt/inr. follow HnH closely given fall and multiple fractures . Compression fracture of body of thoracic vertebra: Compression fracture of lumbar vertebra: CT shows compression fractures T11-L1 MRI thoracic and lumbar ordered, patient declining Spine ortho evaled, no brace, She should lift no more than 5 pounds. C/w pain Mx. P/OT. Metatarsal fracture: Left foot XR shows: Mildly angulated transverse fractures at the necks of the second through fourth metatarsals. Ortho evaled, no sx Ix, recommends post op shoe for weight bearing x 1 month. no f/u needed per ortho. DVT PROPHYLAXIS: on Warfarin PT/OT, CM to assist w/ dc plan. Admission and Anticipated Discharge Date Admission Date: March 16, 2024 Subjective Patient was seen and examined at bedside. Patient appears little bit more confused today, patient has been declining lactulose. Patient's granddaughter at bedside who were also updated on plan of care. Patient has been declining MRI and MRCP as well. Patient stated that she will comply with MRI yesterday but did not, per nursing she is agreeing for MRI today, MRI orders has been placed. CT scan of the head was obtained and warfarin was held given increased drowsiness today, CT head came back negative, resume warfarin. No focal weakness noted at exam. Physical Exam Physical Exam: General Appearance:Obese, no apparent distress, appears ill/frail/weak/sick. drowsy today. Head: normocephalic, Atraumatic Eyes: normal inspection, EOMI, Left Eye Post surgical dressing Neck: supple, Trachea midline Respiratory/Chest: Normal breath sounds, CTA, No accessory muscle use Cardiovascular: S1, S2, No murmur. Abdomen/GI:Soft, Non tender, +Protuberant, Bowel sounds present Back: Tender, no erythema or swelling or warmth. Extremities/Musculoskeletal:normal inspection, trace ble edema, L foot Echymosis Neurologic/Psych:AAOX2, grossly no focal neurological deficits Skin: normal color, warm Results & Data Results & Data Vital Signs (Past 12 Hours) Vital Signs Temp Pulse Pulse Resp BP Pulse Ox Pulse Ox 03/19/24 14:00 72 03/19/24 11:49 36.7 C 103 H 20 148/80 H 94 03/19/24 11:00 94 03/19/24 07:50 36.6 C 69 20 150/81 H 92 03/19/24 07:00 60 03/19/24 04:00 36.3 C L 76 22 120/55 L 94 O2 Del Method O2 Del Method 03/19/24 14:00 03/19/24 11:49 Room Air 03/19/24 11:00 Room Air 03/19/24 07:50 Room Air 03/19/24 07:00 03/19/24 04:00 Room Air
[2024-03-19] MEDS: ceFAZolin 2000MG 2,000 MG/15 ML SYR IV SCH (16:29)
[2024-03-19] MEDS: LORazepam 0.5 MG TAB PO STA (17:57)
[2024-03-19] MEDS: LACTULOSE SYRUP 20 GM/30 ML UDC PO SCH (19:42)
--- NOTE | 2024-03-19 19:49 | Magnetic Resonance Report ---
MR brain wo con CLINICAL HISTORY: syncope TECHNIQUE: Multiplanar and multisequence MR images of the brain were obtained without intravenous con trast. Comparison: Comparison is made to CT head for 03/30/2024 FINDINGS: No abnormal restricted diffusion is identified. Foci of T2 and FLAIR hyperintensity are noted in the paraventricular areas consistent with chronic small vessel ischemic disease. Ex vacuo ventriculomegal y and sulcal enlargement is noted compatible with diffuse volume loss. No mass is seen. There is no m ass effect or midline shift. There is no evidence of acute intraparenchymal hemorrhage. No extra axia l fluid collections are seen. The corpus callosum, pituitary gland, and cerebellar tonsils appear xavi ssly unremarkable. Flow voids of the major intracranial arterial vessels are identified. The imaged portions of the para nasal sinuses, mastoid air cells, and orbits are unremarkable apart from redemonstration of left lobe hyperdensity. IMPRESSION: Chronic volume loss and age related white matter changes without evidence of acute abnormality. ACT 112: Negative or not required by law. Electronically signed by: Mikel Hairston M.D. 03/19/2024 7:47 PM
[2024-03-19] MEDS: LORazepam 2 MG/1 ML VIAL IV PRN (20:15)
[2024-03-20 07:27] LABS: Hematocrit (blood only) 30.1 % (37.0-47.0); Hemoglobin 9.9 g/dl (12.0-16.0); Mean Corpuscular Hemoglobin 34.7 pg (25.0-34.0); Mean Corpuscular Hgb Conc 32.9 g/dL (32.0-36.0); Mean Corpuscular Volume 105.6 fL (80.0-100.0); Mean Platelet Volume 13.1 fL (9.4-12.4); Platelet Count 40 K/uL (130-400); RDW Coefficient of Variation 17.3 % (11.5-14.5); RDW Standard Deviation 68.2 fL (36.4-46.3); Red Blood Count 2.85 M/uL (4.20-5.40); White Blood Count 12.54 K/ul (4.8-10.8)
[2024-03-20 07:33] LABS: Albumin Level 2.3 gm/dl (3.4-5.0); BUN Creatinine Ratio 31.3 (10-20); Bilirubin Direct 2.3 mg/dl (0-0.2); Bilirubin,Total 5.3 mg/dl (0.2-1.0); Calcium 8.1 mg/dl (8.6-10.3); Creatinine Clr Calc Pharmacy 57.2 ml/min; Est GFR (African American) 66.6 ml/min; Est GFR (Non-African American) 57.4 ml/min; Magnesium 1.8 mg/dl (1.7-2.4); Phosphorus 3.1 mg/dl (2.5-4.9); Total Protein 5.8 gm/dl (6.0-8.3)
[2024-03-20 07:42] LABS: INR 2.1 (0.9-1.1); Prothrombin Time 21.1 Seconds (9.0-12.0)
--- NOTE | 2024-03-20 09:21 | Gastroenterology Progress Note ---
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 - Needs MRCP - Pending results consider transfer for ERCP - Hepatic encephalopathy - Continue Lactulose titrated to 3-4 BMs daily - Start Xifaxan 550 twice daily - She needs to re-establish with [facility] at discharge - OP EGD/Colonoscopy - MELD labs every 6 months - ABD imaging w/ AFP every 6 months - EGD every 1-2 years - No ETOH - No NSAIDs - Avoid hepatotoxin - Low NA diet, less than 2G daily - Less than 2G acetaminophen containing products daily - ED for emergencies - Please call with any questions or concerns I spent a total of 55 minutes on the date of service in review of patient's record, and previously obtained information in person and appropriate medical visit, discussion and education of plan, with patient and/or caregiver, placing orders for tests/referral/procedures as medically necessary and documentation of pertinent clinical information in patient's medical records for their visit today. Admission and Anticipated Discharge Date Admission Date: March 16, 2024 Supervising Physician Co-Signing Physician Notes Patient seen and examined. Case discussed with Ragini SOLOMON. Would accelerate treatment for HE. Apparently patient refusing lactulose. Can try adding Xifaxan or giving lactulose enemas. No need to trend serum ammonia levels. Subjective Pt was seen and evaluated, chart reviewed. She is awake, alert only to person, place. Not time. She denies abd pain, nausea, vomiting. There is report of 1 BM on 03/19/24. No reports of black or bloody stools. ID evaluated Ann - no clear source for the Klebsiella pneumoniae bacteremia She does have question of a small stone on CT. MRCP has yet to be obtained. She was started on IV cefazolin 2 g every 8 hours. 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 No varices. Ascites: trace on imaging HE: on Lactulose Screenings: MELD: 20 HCC: due in September Varices: overdue Immunizations: status unknown Review of Systems Review of Systems: All other findings negative except as noted in HPI. Physical Exam Constitutional: WD/WN, vitals as above Respiratory: normal respiratory effort, lungs clear to auscultation Cardiovascular: Rate/Rhythm: regular rate and regular rhythm Gastrointestinal (Abdomen): normal bowel sounds, soft, nontender, no hepatosplenomegaly Skin: no rashes, warm and dry Neurologic: mild asterixis Results & Data Results & Data Vital Signs (Past 12 Hours) Vital Signs Temp Pulse Pulse Resp BP Pulse Ox O2 Del Method 03/20/24 07:26 36.7 C 87 18 138/75 96 Room Air 03/20/24 04:56 36.9 C 77 20 149/85 H 95 Room Air 03/19/24 22:47 36.7 C 63 18 105/54 L 94 Room Air 03/19/24 22:01 65 Laboratory Results 03/20/24 Range/Units 07:00 WBC 12.54 H (4.8-10.8) K/ul RBC 2.85 L (4.20-5.40) M/uL Hgb 9.9 L (12.0-16.0) g/dl Hct 30.1 L (37.0-47.0) % MCV 105.6 H (80.0-100.0) fL MCH 34.7 H (25.0-34.0) pg MCHC 32.9 (32.0-36.0) g/dL RDW Std Deviation 68.2 H (36.4-46.3) fL RDW Coeff of Martinez 17.3 H (11.5-14.5) % Plt Count 40 L (130-400) K/uL MPV 13.1 H (9.4-12.4) fL PT 21.1 H (9.0-12.0) Seconds INR 2.1 H (0.9-1.1) Sodium 141 (136-145) mmol/L Potassium 4.0 (3.5-5.1) mmol/L Chloride 112 H (98-107) mmol/L Carbon Dioxide 25 (21-32) mmol/L Anion Gap 4 (3-11) BUN 30 H (6-23) mg/dl Creatinine 0.96 (0.6-1.2) mg/dl Est Cr Clr Drug Dosing 57.2 ml/min Est GFR ( Amer) 66.6 ml/min Est GFR (Non-Af Amer) 57.4 ml/min BUN/Creatinine Ratio 31.3 H (10-20) Glucose 104 H (70-99(Fasting)) mg/dl Calcium 8.1 L (8.6-10.3) mg/dl Phosphorus 3.1 (2.5-4.9) mg/dl Magnesium 1.8 (1.7-2.4) mg/dl Total Bilirubin 5.3 H (0.2-1.0) mg/dl Direct Bilirubin 2.3 H (0-0.2) mg/dl AST 65 H (13-39) U/L ALT 38 (7-52) U/L Alkaline Phosphatase 126 H (34-104) U/L Total Protein 5.8 L (6.0-8.3) gm/dl Albumin 2.3 L (3.4-5.0) gm/dl PG Care Time/CCT Total # of Minutes Spent Total Time Spent with Patient: Total time spent is greater than 50% in coordination of care (as documented) at patient's floor/unit and/or counseling patient: Coding Level of Care Code 31486 SUB INP/OBS CARE 3/50MIN Diagnoses Cirrhosis K74.60 Hepatic cirrhosis type: unspecified hepatic cirrhosis (1) Cirrhosis Hepatic cirrhosis type: unspecified hepatic cirrhosis
[2024-03-20] MEDS: LACTULOSE 200GM/700ML WTR ENEMA PR SCH (12:37)
--- NOTE | 2024-03-20 15:20 | Hospitalist Progress Note ---
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 Patient reports that while she was going to the bathroom, she felt lightheaded [denies chest pain/funny sensation in the chest/shortness of breath around the time] and weak and fell [hit back on the wall of the bathroom]. She was found by her granddaughter incontinent of stool and urine on the day of presentation. She is being managed for the following: Fall Metabolic encephalopathy: Patient presenting from home after being found by her family confused and incontinent of stool and urine. Seems like patient was likely down for about 2 days. Admitting CPK was 20 In the ED, found to have T11-L1 compression fractures and left 2nd through 4th metatarsal fractures, SIRS, and possible UTI. NH3 level 45 [wnl] Admitting imagings CTAP: age-indeterminate mild superior endplate compression deformities from T11-L1. Cirrhotic liver noted. Cholelithiasis, no GB wall thickening. Punctate nonobstructing stone within the cystic duct/proximal CBD. C-spine CT/head CT/Face CT:: No acute fracture T-spine CT/L-spine CT/Chest CT: T11-L1 fracture as above. Left foot x-ray: Mildly angulated transverse fracture at the necks of the 2nd through 4th metatarsals Echo: EF 60 to 65%, mild concentric LVH, left ventricular systolic function normal. For additional work up of possible syncope, MRI has been ordered at presentation, will follow. Pt got MRI brain 03/19 - no acute findings. She declined rest of MRIs yesterday and agrees to get them done today. Likely Zio patch monitor upon discharge. Severe Sepsis POA, secondary to UTI: Lactate, WBC and heart rate elevated at presentation. status post IV fluid resuscitation, lactate down trended. UTI (urinary tract infection): Bacteremia s/p IVF, lactate down trended History of ESBL E. coli, patient started on ertapenem 03/16 Follow blood and urine culture. UCx +ve for E coli and Bl Cx +ve for K. pneumoniae ID evaled, deescalated to cefazolin 03/19, recommends MRCP. follow MRCP. Pt agreed for MRI today, will follow. Alcoholic cirrhosis: Lost to follow up with GI Alcohol abuse Likely hepatic encephalopathy iso cirrhosis Last EGD 2012 - no esophageal or gastric varices, mild portal gastropathy. Admitting LFT elevated [T. bili 6.5, ALP 135, AST 45] Unclear current alcohol use, UDS positive for opiates/rest either pending or negative. Alcohol level negative. Recommend patient cease all alcohol use. Low-sodium diet. Avoid hepatotoxic's. GI evaluated, continue with lactulose with a goal of 3-4 bowel movements a day, follow-up with hepatology on discharge, MRCP ordered - pt declining, Outpatient ERCP given a stone in the CBD. Outpatient EGD and colonoscopy. start Xifaxan. Follow patient clinically, labs in AM. RAMONITA S protocol, continue with thiamine and folic acid Demand ischemia: trop mildly elevated, flat trend, pt w/ no chest pain. Likely demand ischemia 2/2 acute illness. Portal vein thrombosis: On Coumdin, Hb stable, cw home coumadin, f/u pt/inr. follow HnH closely given fall and multiple fractures . Compression fracture of body of thoracic vertebra: Compression fracture of lumbar vertebra: CT shows compression fractures T11-L1 MRI thoracic and lumbar ordered, patient declining Spine ortho evaled, no brace, She should lift no more than 5 pounds. C/w pain Mx. P/OT. Metatarsal fracture: Left foot XR shows: Mildly angulated transverse fractures at the necks of the second through fourth metatarsals. Ortho evaled, no sx Ix, recommends post op shoe for weight bearing x 1 month. no f/u needed per ortho. DVT PROPHYLAXIS: on Warfarin PT/OT, CM to assist w/ dc plan. Admission and Anticipated Discharge Date Admission Date: March 16, 2024 Subjective Patient was seen and examined at bedside. Patient appears confused, has been declining lactulose per RN, lactulose changed to NM celestina w/ plan to change to PO once pt is more alert. Pt did get brain MRI last evening and declined rest of the MRI, which we will try to get today. pt has agreed to rest of the MRI today. Spoke w/ RN again, after NM lactulose pt has one bowel, pt ate some lunch, remains confused. Physical Exam Physical Exam: General Appearance:Obese, no apparent distress, appears ill/frail/weak/sick. drowsy today. Head: normocephalic, Atraumatic Eyes: normal inspection, EOMI, Left Eye Post surgical dressing Neck: supple, Trachea midline Respiratory/Chest: Normal breath sounds, CTA, No accessory muscle use Cardiovascular: S1, S2, No murmur. Abdomen/GI:Soft, Non tender, +Protuberant, Bowel sounds present Back: Tender, no erythema or swelling or warmth. Extremities/Musculoskeletal:normal inspection, trace ble edema, L foot Echymosis Neurologic/Psych:AAOX2, grossly no focal neurological deficits Skin: normal color, warm Results & Data Results & Data Vital Signs (Past 12 Hours) Vital Signs Temp Pulse Pulse Resp BP Pulse Ox O2 Del Method 03/20/24 13:00 63 03/20/24 11:00 36.8 C 98 H 20 120/63 98 Room Air 03/20/24 07:40 Room Air 03/20/24 07:26 36.7 C 87 18 138/75 96 Room Air 03/20/24 07:00 74 03/20/24 04:56 36.9 C 77 20 149/85 H 95 Room Air
[2024-03-20] MEDS: LORazepam 0.5 MG TAB PO PRN ×2 (16:31→21:28)
[2024-03-20] MEDS: rifAXIMin 550 MG TABLET PO SCH (21:38)
[2024-03-21] MEDS: LORazepam 2 MG/1 ML VIAL IV ONE (00:58)
--- NOTE | 2024-03-21 03:19 | Magnetic Resonance Report ---
Exam(s): MRI L SPINE Without Contrast EXAM: MR Lumbar Spine Without Intravenous Contrast CLINICAL HISTORY: Reason for exam: fall/ lumbar fracture, syncope. TECHNIQUE: Magnetic resonance images of the lumbar spine without intravenous contrast in multiple planes. COMPARISON: Prior CT scan lumbar spine from March 16, 2024. FINDINGS: Vertebrae: There are 5 lumbar the vertebral bodies with a mild dextroscoliosis and shallow lumbar lordosis. There is normal vertebral body height and alignment. There are multiple small Schmorl's nodes. The bone marrow signal is heterogeneous with reactive endplate changes. There is narrowing of the entire lumbar spinal canal secondary to congenitally short pedicles. There is mild wedging of the T11 and T12 vertebral bodies, which is likely physiologic. No acute fracture. Spinal cord: The conus is normal size, shape and signal characteristics, terminating at L1-L2. Soft tissues: Advanced atrophy of the iliopsoas, paraspinous intraspinous musculature. The aorta and IVC flow voids are intact. There is heterogeneous T1 bright signal within the kidneys, which may represent artifact. There is moderate edema of the subcutaneous fat overlying the lumbar spine. DISCS/SPINAL CANAL/NEURAL FORAMINA: L1-L2: There is mild disc degeneration with annular disc bulge flattening the ventral thecal sac with disc extending to the right neural foramen without evidence of impingement or significant stenosis. L2-L3: Moderate disc degeneration with annular disc bulge causing a mild subarticular recess stenosis with superimposed congenitally short pedicles causing a moderately severe spinal canal stenosis with thecal sac measuring 0.53 cm. There is disc extending to the neural foramina without evidence of impingement or significant stenosis. L3-L4: Moderate disc degeneration with annular disc bulge causing a mild subarticular recess stenosis with superimposed congenitally short pedicles and ligamentum flavum laxity causing a severe spinal canal stenosis with thecal sac area measures 0.32 cm. There is disc extending to the neural foramina causing a mild right and moderate left stenosis with mild impingement of the left L3 nerve root ganglion. L4-L5: Moderate disc degeneration with annular disc bulge causing a mild right and severe left subarticular recess stenosis with impingement of the transiting left L5 nerve root. There is superimposed congenitally short pedicles and facet joint arthropathy causing a critical spinal canal stenosis with thecal sac area measuring 0.22 cm. There is disc and osteophyte extending to the neural foramina causing a moderate bilateral stenosis with mild impingement of the L4 nerve or ganglia. L5-S1: Moderate disc degeneration with annular disc bulge asymmetric to the right causing a severe right subarticular recess stenosis with impingement of the transiting right S1 nerve root. There is disc extending to the neural foramina causing a moderate right stenosis with mild impingement of the L5 nerve or ganglia. IMPRESSION: 1. Moderate disc degeneration at L2-3, L3-4, L4-5, L5-S1 and mild disc degeneration at L1-L2 with annular disc bulging flattening the ventral thecal sac and causing a mild subarticular recess stenosis at L2-3, L3-4, mild right and severe left L4-5 and severe right L5-S1 subarticular recess stenosis with impingement of the transiting left L5 and right S1 nerve roots. 2. There is a critical spinal canal stenosis at L4-5, severe stenosis at L3-4 and moderately severe stenosis at L2-3 with a congenitally narrow spinal canal. 3. There is mild right and moderate left L3-4, moderate bilateral L4-5, and moderate right L5-S1 neural foraminal stenosis with impingement of the left L3, bilateral L4 and right L5 nerve or ganglia. 4. No evidence of fracture, infection, tumor or arachnoiditis. Electronically signed by: Krupa Perez MD 03/21/24 03:18 AM
--- NOTE | 2024-03-21 03:26 | Magnetic Resonance Report ---
Exam(s): MRI T SPINE Without Contrast EXAM: MR Thoracic Spine Without Intravenous Contrast CLINICAL HISTORY: Reason for exam: fall/ thoracic fracture, syncope. TECHNIQUE: Magnetic resonance images of the thoracic spine without intravenous contrast in multiple planes. COMPARISON: Prior CT scan of the thoracic spine from March 16, 2024. FINDINGS: Vertebrae: There are 12 thoracic type vertebral bodies with a mild reversed S-shaped scoliosis and normal thoracic kyphosis. There is mild wedging of the T12 vertebral body, which is likely physiologic. Otherwise, there is normal vertebral body height and alignment. The bone marrow signal is heterogeneous with reactive endplate changes and areas of focal fat. There is loss of normal T1 bright bone marrow signal. No acute fracture. Discs/spinal canal/neural foramina: No acute findings. Multilevel degenerative disc disease with annular disc bulges flattening the ventral thecal sac. No spinal canal stenosis. Spinal cord: Unremarkable. Normal signal. Soft tissues: Unremarkable. IMPRESSION: No evidence of acute thoracic spine pathology. Electronically signed by: Krupa Perez MD 03/21/24 03:25 AM
[2024-03-21 07:23] LABS: BUN Creatinine Ratio 31.9 (10-20); Calcium 8.6 mg/dl (8.6-10.3); Creatinine Clr Calc Pharmacy 60.1 ml/min; Est GFR (Non-African American) 61.3 ml/min; Magnesium 1.8 mg/dl (1.7-2.4); Phosphorus 3.1 mg/dl (2.5-4.9)
[2024-03-21 07:30] LABS: INR 2.3 (0.9-1.1); Prothrombin Time 23.2 Seconds (9.0-12.0)
[2024-03-21 07:31] LABS: Hemoglobin 10.8 g/dl (12.0-16.0); Mean Corpuscular Hemoglobin 33.9 pg (25.0-34.0); Mean Corpuscular Hgb Conc 31.8 g/dL (32.0-36.0); Mean Corpuscular Volume 106.6 fL (80.0-100.0); Mean Platelet Volume 12.5 fL (9.4-12.4); Platelet Count 52 K/uL (130-400); RDW Standard Deviation 67.2 fL (36.4-46.3); Red Blood Count 3.19 M/uL (4.20-5.40); White Blood Count 13.31 K/ul (4.8-10.8)
--- NOTE | 2024-03-21 09:34 | Hospitalist Progress Note ---
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 Patient reports that while she was going to the bathroom, she felt lightheaded [denies chest pain/funny sensation in the chest/shortness of breath around the time] and weak and fell [hit back on the wall of the bathroom]. She was found by her granddaughter incontinent of stool and urine on the day of presentation. She is being managed for the following: Fall Metabolic encephalopathy: Patient presenting from home after being found by her family confused and incontinent of stool and urine. Seems like patient was likely down for about 2 days. Admitting CPK was 20 In the ED, found to have T11-L1 compression fractures and left 2nd through 4th metatarsal fractures, SIRS, and possible UTI. NH3 level 45 [wnl] Admitting imagings CTAP: age-indeterminate mild superior endplate compression deformities from T11-L1. Cirrhotic liver noted. Cholelithiasis, no GB wall thickening. Punctate nonobstructing stone within the cystic duct/proximal CBD. C-spine CT/head CT/Face CT:: No acute fracture T-spine CT/L-spine CT/Chest CT: T11-L1 fracture as above. Left foot x-ray: Mildly angulated transverse fracture at the necks of the 2nd through 4th metatarsals MRI Brain on 03/19- no acute abnormality reported MRI thoracic spine- no acute findings MRI lumbar spine- no evidence of fracture; refer to report for additional details. Echo: EF 60 to 65%, mild concentric LVH, left ventricular systolic function normal. will need ziopatch after follow up with PCP. Severe Sepsis POA, secondary to UTI: Lactate, WBC and heart rate elevated at presentation. status post IV fluid resuscitation, lactate down trended. UTI (urinary tract infection): Bacteremia s/p IVF, lactate down trended History of ESBL E. coli, patient started on ertapenem 03/16 UCx +ve for E coli and Bl Cx +ve for K. pneumoniae ID evaluated, deescalated to cefazolin 03/19, recommends MRCP. MRCP didn't show any CBD stone. Alcoholic cirrhosis: Lost to follow up with GI Alcohol use disorder Likely hepatic encephalopathy iso cirrhosis Last EGD 2012 - no esophageal or gastric varices, mild portal gastropathy. Admitting LFT elevated [T. bili 6.5, ALP 135, AST 45] Unclear current alcohol use, UDS positive for opiates/rest either pending or negative. Alcohol level negative. Recommend patient cease all alcohol use. Low-sodium diet. Avoid hepatotoxic's. GI evaluated, continue with lactulose with a goal of 3-4 bowel movements a day, follow-up with hepatology on discharge, Outpatient EGD and colonoscopy. start Xifaxan. Demand ischemia: trop mildly elevated, flat trend, pt w/ no chest pain. Likely demand ischemia 2/2 acute illness. Portal vein thrombosis: On Coumdin, Hb stable, cw home coumadin, f/u pt/inr. follow HnH closely given fall and multiple fractures . Compression fracture of body of thoracic vertebra: Compression fracture of lumbar vertebra: CT shows compression fractures T11-L1 MRI thoracic and lumbar above Spine ortho evaled, no brace, She should lift no more than 5 pounds. C/w pain Mx. P/OT. Metatarsal fracture: Left foot XR shows: Mildly angulated transverse fractures at the necks of the second through fourth metatarsals. Ortho evaled, no sx Ix, recommends post op shoe for weight bearing x 1 month. no f/u needed per ortho. DVT PROPHYLAXIS: on Warfarin Disposition- continues to be hospitalized for possible hepatic encephalopathy. will need rehab at discharge. Time spent evaluating patient, direct bedside care, chart review, placing orders, interpretation of diagnostic studies, discussion with consultants, patient, and family members, as well as other required patient management activities is 50 minutes Please note the above document was generated using voice recognition software. It may contain grammatical, syntax or spelling errors. Any formal questions or concerns about the content, text or information contained within the body of this dictation should be directly addressed to the provider for clarification Admission and Anticipated Discharge Date Admission Date: March 16, 2024 Subjective Patient reported to have 3 bowel movement as per nursing report. Lactulose currently on hold. No significant events overnight Patient awakeable by voice. Oriented to self and place. Able to follow simple commands Review of Systems Review of Systems: Unobtainable due to mental health condition Physical Exam Physical Exam: General Appearance:Obese, no apparent distress, awakeable by voics Head: normocephalic, Atraumatic Eyes: normal inspection, EOMI, Left Eye Post surgical dressing Neck: supple, Trachea midline Respiratory/Chest: Normal breath sounds, CTA, No accessory muscle use Cardiovascular: S1, S2, No murmur. Abdomen/GI:Soft, Non tender, +Protuberant, Bowel sounds present Back: Tender, no erythema or swelling or warmth. Extremities/Musculoskeletal:normal inspection, trace ble edema, L foot Echymosis Neurologic/Psych:AAOXself, moves all extremities. follow simple commands Skin: normal color, warm Results & Data Results & Data Vital Signs (Past 12 Hours) Vital Signs Temp Pulse Pulse Resp BP BP Pulse Ox 03/21/24 07:47 36.6 C 76 18 142/60 H 94 03/21/24 07:00 76 03/21/24 05:28 36.5 C 75 18 163/78 H 95 03/20/24 22:38 36.6 C 68 18 120/64 95 03/20/24 21:51 73 O2 Del Method 03/21/24 07:47 Room Air 03/21/24 07:00 03/21/24 05:28 Room Air 03/20/24 22:38 Room Air 03/20/24 21:51
--- NOTE | 2024-03-21 09:49 | Gastroenterology Progress Note ---
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 - Needs MRCP - Pending results consider transfer for ERCP - Hepatic encephalopathy - Continue Lactulose titrated to 3-4 BMs daily - Start Xifaxan 550 twice daily - She needs to re-establish with [facility] GI/Hepatology at discharge - OP EGD/Colonoscopy - MELD labs every 6 months - ABD imaging w/ AFP every 6 months - EGD every 1-2 years - No ETOH - No NSAIDs - Avoid hepatotoxin - Low NA diet, less than 2G daily - Less than 2G acetaminophen containing products daily - ED for emergencies - Please call with any questions or concerns I spent a total of 40 minutes on the date of service in review of patient's record, and previously obtained information in person and appropriate medical visit, discussion and education of plan, with patient and/or caregiver, placing orders for tests/referral/procedures as medically necessary and documentation of pertinent clinical information in patient's medical records for their visit today. Admission and Anticipated Discharge Date Admission Date: March 16, 2024 Supervising Physician Co-Signing Physician Notes Patient seen and examined. Case discussed with Ragini SOLOMON. Patient still confused. According to nurse - had 3 BMs yesterday and one so far today. Getting Xifaxan and now lactulose enemas. MRCP - no choledocholithiasis seen. Continue same. 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 Subjective Pt was seen and evaluated,chart reviewed. Oriented to person, place but not time. Denies abd pain. Is agreeable to MRCP this AM. No nausea, vomiting. Does not feel hungry. Last BM was 03/20/24. No report of black or bloody stools Review of Systems Review of Systems: All other findings negative except as noted in HPI. Physical Exam Constitutional: WD/WN, vitals as above Respiratory: normal respiratory effort, lungs clear to auscultation Cardiovascular: RRR, no murmur, no edema Gastrointestinal (Abdomen): normal bowel sounds, soft, nontender, no hepatosplenomegaly Skin: no rashes, warm and dry Results & Data Results & Data Vital Signs (Past 12 Hours) Vital Signs Temp Pulse Pulse Resp BP BP Pulse Ox 03/21/24 07:47 36.6 C 76 18 142/60 H 94 03/21/24 07:00 76 03/21/24 05:28 36.5 C 75 18 163/78 H 95 03/20/24 22:38 36.6 C 68 18 120/64 95 03/20/24 21:51 73 O2 Del Method 03/21/24 07:47 Room Air 03/21/24 07:00 03/21/24 05:28 Room Air 03/20/24 22:38 Room Air 03/20/24 21:51 Laboratory Results 03/21/24 Range/Units 06:36 WBC 13.31 H (4.8-10.8) K/ul RBC 3.19 L (4.20-5.40) M/uL Hgb 10.8 L (12.0-16.0) g/dl Hct 34.0 L (37.0-47.0) % MCV 106.6 H (80.0-100.0) fL MCH 33.9 (25.0-34.0) pg MCHC 31.8 L (32.0-36.0) g/dL RDW Std Deviation 67.2 H (36.4-46.3) fL RDW Coeff of Martinez 17.0 H (11.5-14.5) % Plt Count 52 L (130-400) K/uL MPV 12.5 H (9.4-12.4) fL PT 23.2 H (9.0-12.0) Seconds INR 2.3 H (0.9-1.1) Sodium 142 (136-145) mmol/L Potassium 4.0 (3.5-5.1) mmol/L Chloride 113 H (98-107) mmol/L Carbon Dioxide 23 (21-32) mmol/L Anion Gap 6 (3-11) BUN 29 H (6-23) mg/dl Creatinine 0.91 (0.6-1.2) mg/dl Est Cr Clr Drug Dosing 60.1 ml/min Est GFR ( Amer) 71.0 ml/min Est GFR (Non-Af Amer) 61.3 ml/min BUN/Creatinine Ratio 31.9 H (10-20) Glucose 96 (70-99(Fasting)) mg/dl Calcium 8.6 (8.6-10.3) mg/dl Phosphorus 3.1 (2.5-4.9) mg/dl Magnesium 1.8 (1.7-2.4) mg/dl PG Care Time/CCT Total # of Minutes Spent Total Time Spent with Patient: Total time spent is greater than 50% in coordination of care (as documented) at patient's floor/unit and/or counseling patient: Coding Level of Care Code 47641 SUB INP/OBS CARE 235MIN Diagnoses Cirrhosis K74.60 Hepatic cirrhosis type: unspecified hepatic cirrhosis (1) Cirrhosis Hepatic cirrhosis type: unspecified hepatic cirrhosis
--- NOTE | 2024-03-21 13:04 | Magnetic Resonance Report ---
MR MRCP CLINICAL HISTORY: rule out cbd stone TECHNIQUE: Multiplanar multisequence MR images of the abdomen were obtained, as per MRCP protocol. . COMPARISON: Comparison is made to MRCP 02/23/2008 FINDINGS: Exam is limited by patient motion. Lower chest: No acute abnormality Liver: Nodular contour of the liver is seen compatible with cirrhosis. Gallbladder and biliary tree: Cholelithiasis is seen without evidence of cholecystitis. Common bile d uct measures up to 7 mm, normal for age. No filling defect is seen in the common bile duct to suggest obstructive stone. Pancreas: Unremarkable, no focal lesions. Spleen: Unremarkable. Adrenals: Unremarkable. Kidneys and ureters: Unremarkable. Bowel: Unremarkable. Lymph nodes Retroperitoneal: Unremarkable. Mesenteric: Unremarkable. Peritoneum: Normal Vessels: Unremarkable. Abdominal wall: Unremarkable. Bones: Degenerative changes in the visualized spine. IMPRESSION: 1. Cholelithiasis without cholecystitis or common bile duct stone. 2. Cirrhosis. ACT 112: Negative or not required by law. Electronically signed by: Mikel Hairston M.D. 03/21/2024 1:03 PM
[2024-03-22 07:38] LABS: Basophils # (auto) 0.07 K/uL (0.00-0.20); Basophils % (auto) 0.6 %; Eosinophils # (auto) 0.12 K/uL (0.00-0.50); Hematocrit (blood only) 33.5 % (37.0-47.0); Hemoglobin 10.8 g/dl (12.0-16.0); Immature Granulocytes # (auto) 0.42 K/uL (0.01-0.20); Immature Granulocytes % (auto) 3.6 %; Lymphocytes # (auto) 0.94 K/uL (1.20-3.40); Mean Corpuscular Hemoglobin 35.2 pg (25.0-34.0); Mean Corpuscular Hgb Conc 32.2 g/dL (32.0-36.0); Mean Corpuscular Volume 109.1 fL (80.0-100.0); Mean Platelet Volume 13.3 fL (9.4-12.4); Neutrophils # (auto) 8.97 K/uL (1.40-6.50); Neutrophils % (auto) 75.8 %; Nucleated RBC # (auto) 0.02 K/uL (0.00-0.12); Nucleated RBC % (auto) 0.2 %; Platelet Count 47 K/uL (130-400); RDW Coefficient of Variation 17.2 % (11.5-14.5); RDW Standard Deviation 67.9 fL (36.4-46.3); Red Blood Count 3.07 M/uL (4.20-5.40); White Blood Count 11.82 K/ul (4.8-10.8)
[2024-03-22 07:43] LABS: Albumin Level 2.3 gm/dl (3.4-5.0); Bilirubin Direct 2.8 mg/dl (0-0.2); Bilirubin,Total 6.6 mg/dl (0.2-1.0); Calcium 8.9 mg/dl (8.6-10.3); Potassium 4.2 mmol/L (3.5-5.1)
[2024-03-22 07:49] LABS: BUN Creatinine Ratio 32.2 (10-20); Creatinine Clr Calc Pharmacy 60.9 ml/min; Est GFR (Non-African American) 62.1 ml/min; Total Protein 6.4 gm/dl (6.0-8.3)
--- NOTE | 2024-03-22 09:02 | Hospitalist Progress Note ---
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 Patient reports that while she was going to the bathroom, she felt lightheaded [denies chest pain/funny sensation in the chest/shortness of breath around the time] and weak and fell [hit back on the wall of the bathroom]. She was found by her granddaughter incontinent of stool and urine on the day of presentation. She is being managed for the following: Fall Metabolic encephalopathy: Patient presenting from home after being found by her family confused and incontinent of stool and urine. Seems like patient was likely down for about 2 days. Admitting CPK was 20 In the ED, found to have T11-L1 compression fractures and left 2nd through 4th metatarsal fractures, SIRS, and possible UTI. NH3 level 45 [wnl] Admitting imagings CTAP: age-indeterminate mild superior endplate compression deformities from T11-L1. Cirrhotic liver noted. Cholelithiasis, no GB wall thickening. Punctate nonobstructing stone within the cystic duct/proximal CBD. C-spine CT/head CT/Face CT:: No acute fracture T-spine CT/L-spine CT/Chest CT: T11-L1 fracture as above. Left foot x-ray: Mildly angulated transverse fracture at the necks of the 2nd through 4th metatarsals MRI Brain on 03/19- no acute abnormality reported MRI thoracic spine- no acute findings MRI lumbar spine- no evidence of fracture; refer to report for additional details. Echo: EF 60 to 65%, mild concentric LVH, left ventricular systolic function normal. will need ziopatch after follow up with PCP. Severe Sepsis POA, secondary to UTI: Lactate, WBC and heart rate elevated at presentation. status post IV fluid resuscitation, lactate down trended. UTI (urinary tract infection): Bacteremia s/p IVF, lactate down trended History of ESBL E. coli, patient started on ertapenem 03/16 UCx +ve for E coli and Bl Cx +ve for K. pneumoniae ID evaluated, deescalated to cefazolin 03/19, recommends MRCP. Plan to treat for 7 days. MRCP didn't show any CBD stone. Alcoholic cirrhosis: Lost to follow up with GI Alcohol use disorder Likely hepatic encephalopathy iso cirrhosis Last EGD 2012 - no esophageal or gastric varices, mild portal gastropathy. Admitting LFT elevated [T. bili 6.5, ALP 135, AST 45] Unclear current alcohol use, UDS positive for opiates/rest either pending or negative. Alcohol level negative. Recommend patient cease all alcohol use. Low-sodium diet. Avoid hepatotoxic's. GI evaluated, continue with lactulose with a goal of 3-4 bowel movements a day, follow-up with hepatology on discharge, Outpatient EGD and colonoscopy. started on Xifaxan. Demand ischemia: trop mildly elevated, flat trend, pt w/ no chest pain. Likely demand ischemia 2/2 acute illness. Portal vein thrombosis: On Coumadin, Hb stable, cw home Coumadin, f/u pt/inr. Compression fracture of body of thoracic vertebra: Compression fracture of lumbar vertebra: CT shows compression fractures T11-L1 MRI thoracic and lumbar above Spine ortho evaled, no brace, She should lift no more than 5 pounds. C/w pain Mx. P/OT. Metatarsal fracture: Left foot XR shows: Mildly angulated transverse fractures at the necks of the second through fourth metatarsals. Ortho evaled, no sx Ix, recommends post op shoe for weight bearing x 1 month. no f/u needed per ortho. DVT PROPHYLAXIS: on Warfarin Disposition- continues to be hospitalized for possible hepatic encephalopathy. will need rehab at discharge. Discussed with patient's granddaughter at bedside. Time spent evaluating patient, direct bedside care, chart review, placing orders, interpretation of diagnostic studies, discussion with consultants, patient, and family members, as well as other required patient management activities is 50 minutes Please note the above document was generated using voice recognition software. It may contain grammatical, syntax or spelling errors. Any formal questions or concerns about the content, text or information contained within the body of this dictation should be directly addressed to the provider for clarification Admission and Anticipated Discharge Date Admission Date: March 16, 2024 Subjective Overnight, patient reported of back pain requiring oxycodone She is having regular bowel movements Vital signs are stable She is awakeable by voice; denies any pain or discomfort Review of Systems Review of Systems: All systems reviewed & are unremarkable except as noted in Subjective Physical Exam Physical Exam: General Appearance:Obese, no apparent distress, awakeable by voice Head: normocephalic, Atraumatic Eyes: normal inspection, EOMI, Left Eye Post surgical dressing Neck: supple, Trachea midline Respiratory/Chest: Normal breath sounds, CTA, No accessory muscle use Cardiovascular: S1, S2, No murmur. Abdomen/GI:Soft, Non tender, +Protuberant, Bowel sounds present Back: Tender, no erythema or swelling or warmth. Extremities/Musculoskeletal:normal inspection, trace ble edema, L foot Echymosis Neurologic/Psych:AAOXself, moves all extremities. follow simple commands Skin: normal color, warm Results & Data Results & Data Vital Signs (Past 12 Hours) Vital Signs Temp Pulse Pulse Resp BP BP Pulse Ox 03/22/24 07:38 78 03/22/24 07:36 37.2 C 71 16 118/74 95 03/22/24 02:48 36.6 C 91 H 18 130/68 92 03/21/24 23:00 86 03/21/24 22:39 36.8 C 75 18 145/83 H 91 O2 Del Method 03/22/24 07:38 03/22/24 07:36 Room Air 03/22/24 02:48 Room Air 03/21/24 23:00 03/21/24 22:39 Room Air
--- NOTE | 2024-03-22 10:13 | Gastroenterology Progress Note ---
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 Thank you for allowing us to participate in the care of this patient. Please call with any acute changes, questions or concerns. Please see addendum below with additional recommendation from my supervising physician. I spent a total of 40 minutes on the date of service in review of patient's record, and previously obtained information in person and appropriate medical visit, discussion and education of plan, with patient and/or caregiver, placing orders for tests/referral/procedures as medically necessary and documentation of pertinent clinical information in patient's medical records for their visit today. Admission and Anticipated Discharge Date Admission Date: March 16, 2024 Supervising Physician Co-Signing Physician Notes Patient seen and examined. Case discussed with Ragini SOLOMON. Patient essentially unchanged and fear this may be more than just HE and may be a permanent Korsakoff picture. Continue same and may consider termite technician placement. IP GI Service will sign off. Subjective Pt was seen and evaluated, chart reviewed. Oriented to person, place but not time. No report of abd pain, nausea, vomiting. Moving bowels without report of black or bloody stools. No fever, chills, CP, SOB. MRCP 2023: Cholelithiasis without cholecystitis or common bile duct stone. Cirrhosis. Diagnosis: ETOH induced cirrhosis, last ETOH use unknown Decompensations Varices: last EGD in 2012, Mild portal gastropathy. No varices. Ascites: trace on imaging HE: on Lactulose Screenings: MELD: 20 HCC: due in September Varices: overdue Immunizations: status unknown Review of Systems Review of Systems: All other findings negative except as noted in HPI. Physical Exam Constitutional: WD/WN, vitals as above Respiratory: normal respiratory effort, lungs clear to auscultation Cardiovascular: RRR, no murmur, no edema Skin: no rashes, warm and dry Results & Data Results & Data Vital Signs (Past 12 Hours) Vital Signs Temp Pulse Pulse Resp BP BP Pulse Ox 03/22/24 07:38 78 03/22/24 07:36 37.2 C 71 16 118/74 95 03/22/24 02:48 36.6 C 91 H 18 130/68 92 03/21/24 23:00 86 03/21/24 22:39 36.8 C 75 18 145/83 H 91 O2 Del Method 03/22/24 07:38 03/22/24 07:36 Room Air 03/22/24 02:48 Room Air 03/21/24 23:00 03/21/24 22:39 Room Air Laboratory Results 03/22/24 Range/Units 07:00 WBC 11.82 H (4.8-10.8) K/ul RBC 3.07 L (4.20-5.40) M/uL Hgb 10.8 L (12.0-16.0) g/dl Hct 33.5 L (37.0-47.0) % MCV 109.1 H (80.0-100.0) fL MCH 35.2 H (25.0-34.0) pg MCHC 32.2 (32.0-36.0) g/dL RDW Std Deviation 67.9 H (36.4-46.3) fL RDW Coeff of Martinez 17.2 H (11.5-14.5) % Plt Count 47 L (130-400) K/uL MPV 13.3 H (9.4-12.4) fL Immature Gran % (Auto) 3.6 % Neut % (Auto) 75.8 % Lymph % (Auto) 8.0 % Ray % (Auto) 11.0 % Eos % (Auto) 1.0 % Baso % (Auto) 0.6 % Neut # (Auto) 8.97 H (1.40-6.50) K/uL Lymph # (Auto) 0.94 L (1.20-3.40) K/uL Ray # (Auto) 1.30 H (0.11-0.59) K/uL Eos # (Auto) 0.12 (0.00-0.50) K/uL Baso # (Auto) 0.07 (0.00-0.20) K/uL Immature Gran # (Auto) 0.42 H (0.01-0.20) K/uL Absolute Nucleated RBC 0.02 (0.00-0.12) K/uL Nucleated RBC % (auto) 0.2 % Sodium 144 (136-145) mmol/L Potassium 4.2 (3.5-5.1) mmol/L Chloride 115 H (98-107) mmol/L Carbon Dioxide 23 (21-32) mmol/L Anion Gap 6 (3-11) BUN 29 H (6-23) mg/dl Creatinine 0.90 (0.6-1.2) mg/dl Est Cr Clr Drug Dosing 60.9 ml/min Est GFR ( Amer) 72.0 ml/min Est GFR (Non-Af Amer) 62.1 ml/min BUN/Creatinine Ratio 32.2 H (10-20) Glucose 102 H (70-99(Fasting)) mg/dl Calcium 8.9 (8.6-10.3) mg/dl Total Bilirubin 6.6 H (0.2-1.0) mg/dl Direct Bilirubin 2.8 H (0-0.2) mg/dl AST 54 H (13-39) U/L ALT 8 (7-52) U/L Alkaline Phosphatase 133 H (34-104) U/L Total Protein 6.4 (6.0-8.3) gm/dl Albumin 2.3 L (3.4-5.0) gm/dl PG Care Time/CCT Total # of Minutes Spent Total Time Spent with Patient: Total time spent is greater than 50% in coordination of care (as documented) at patient's floor/unit and/or counseling patient: Coding Level of Care Code 76770 SUB INP/OBS CARE 2/35MIN Diagnoses Cirrhosis K74.60 Hepatic cirrhosis type: unspecified hepatic cirrhosis (1) Cirrhosis Hepatic cirrhosis type: unspecified hepatic cirrhosis
--- NOTE | 2024-03-22 14:16 | Electrocardiogram Report ---
Test Reason : Blood Pressure : */* mmHG Vent. Rate : 74 BPM Atrial Rate : 74 BPM P-R Int : 146 ms QRS Dur : 88 ms QT Int : 412 ms P-R-T Axes : 31 33 27 degrees QTcB Int : 457 ms Normal sinus rhythm Poor R wave progression, consider anterior CA vs. lead placement vs. LVH Abnormal ECG When compared with ECG of 16-Mar-2024 07:19, Nonspecific T wave abnormality, improved in Anterolateral leads Confirmed by Meng Farias ([id number]) on 03/22/2024 2:16:19 PM Referred By: REFERRED SELF Confirmed By: Meng Farias
[2024-03-23 07:00] LABS: Basophils # (auto) 0.03 K/uL (0.00-0.20); Basophils % (auto) 0.3 %; Eosinophils # (auto) 0.14 K/uL (0.00-0.50); Eosinophils % (auto) 1.2 %; Hematocrit (blood only) 31.8 % (37.0-47.0); Hemoglobin 10.2 g/dl (12.0-16.0); Immature Granulocytes # (auto) 0.31 K/uL (0.01-0.20); Immature Granulocytes % (auto) 2.6 %; Lymphocytes # (auto) 0.56 K/uL (1.20-3.40); Lymphocytes % (auto) 4.8 %; Mean Corpuscular Hemoglobin 35.2 pg (25.0-34.0); Mean Corpuscular Hgb Conc 32.1 g/dL (32.0-36.0); Mean Corpuscular Volume 109.7 fL (80.0-100.0); Mean Platelet Volume 12.3 fL (9.4-12.4); Monocytes # (auto) 0.48 K/uL (0.11-0.59); Monocytes % (auto) 4.1 %; Neutrophils # (auto) 10.18 K/uL (1.40-6.50); Nucleated RBC # (auto) 0.03 K/uL (0.00-0.12); Nucleated RBC % (auto) 0.3 %; Platelet Count 50 K/uL (130-400); RDW Coefficient of Variation 17.4 % (11.5-14.5); RDW Standard Deviation 67.6 fL (36.4-46.3)
[2024-03-23 07:14] LABS: BUN Creatinine Ratio 32.3 (10-20); Calcium 9.1 mg/dl (8.6-10.3); Creatinine Clr Calc Pharmacy 58.8 ml/min; Est GFR (African American) 69.2 ml/min; Est GFR (Non-African American) 59.7 ml/min; Potassium 4.1 mmol/L (3.5-5.1)
[2024-03-23 07:28] LABS: INR 3.4 (0.9-1.1); Prothrombin Time 32.8 Seconds (9.0-12.0)
[2024-03-23] MEDS: DEXTROSE 5% 500 ML IV SCH (07:35)
--- NOTE | 2024-03-23 08:58 | Hospitalist Progress Note ---
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 Patient reports that while she was going to the bathroom, she felt lightheaded [denies chest pain/funny sensation in the chest/shortness of breath around the time] and weak and fell [hit back on the wall of the bathroom]. She was found by her granddaughter incontinent of stool and urine on the day of presentation. She is being managed for the following: Fall Metabolic encephalopathy: Patient presenting from home after being found by her family confused and incontinent of stool and urine. Seems like patient was likely down for about 2 days. Admitting CPK was 20 In the ED, found to have T11-L1 compression fractures and left 2nd through 4th metatarsal fractures, Admitting imagings CTAP: age-indeterminate mild superior endplate compression deformities from T11-L1. Cirrhotic liver noted. Cholelithiasis, no GB wall thickening. Punctate nonobstructing stone within the cystic duct/proximal CBD. C-spine CT/head CT/Face CT:: No acute fracture T-spine CT/L-spine CT/Chest CT: T11-L1 fracture as above. Left foot x-ray: Mildly angulated transverse fracture at the necks of the 2nd through 4th metatarsals MRI Brain on 03/19- no acute abnormality reported MRI thoracic spine- no acute findings MRI lumbar spine- no evidence of fracture; refer to report for additional details. Echo: EF 60 to 65%, mild concentric LVH, left ventricular systolic function normal. will need ziopatch after follow up with PCP. Severe Sepsis POA, secondary to UTI: Lactate, WBC and heart rate elevated at presentation. status post IV fluid resuscitation, lactate down trended. UTI (urinary tract infection): Bacteremia s/p IVF, lactate down trended History of ESBL E. coli, patient started on ertapenem 03/16 UCx +ve for E coli and Bl Cx +ve for K. pneumoniae ID evaluated, deescalated to cefazolin 03/19, recommends MRCP. Plan to treat for 7 days. MRCP didn't show any CBD stone. Repeat Blood culture- NGTD Alcoholic cirrhosis: Lost to follow up with GI Alcohol use disorder Likely hepatic encephalopathy iso cirrhosis Last EGD 2012 - no esophageal or gastric varices, mild portal gastropathy. Admitting LFT elevated [T. bili 6.5, ALP 135, AST 45] Unclear current alcohol use, UDS positive for opiates/rest either pending or negative. Alcohol level negative. Recommend patient cease all alcohol use. Low-sodium diet. Avoid hepatotoxic's. GI evaluated, continue with lactulose with a goal of 3-4 bowel movements a day, follow-up with hepatology on discharge, Outpatient EGD and colonoscopy. started on Xifaxan. Hypernatremiaserum sodium up trended to 146 on 03/23. Started on D5 for 1 L. Follow-up BMP Demand ischemia: trop mildly elevated, flat trend, pt w/ no chest pain. Likely demand ischemia 2/2 acute illness. Portal vein thrombosis: On Coumadin, Hb stable, cw home Coumadin, f/u pt/inr. Compression fracture of body of thoracic vertebra: Compression fracture of lumbar vertebra: CT shows compression fractures T11-L1 MRI thoracic and lumbar above Spine ortho evaled, no brace, She should lift no more than 5 pounds. C/w pain Mx. P/OT. Metatarsal fracture: Left foot XR shows: Mildly angulated transverse fractures at the necks of the second through fourth metatarsals. Ortho evaled, no sx Ix, recommends post op shoe for weight bearing x 1 month. no f/u needed per ortho. DVT PROPHYLAXIS: on Warfarin Disposition- continues to be hospitalized for possible hepatic encephalopathy. will need rehab at discharge. Discussed with patient's granddaughters at bedside on 03/23. Time spent evaluating patient, direct bedside care, chart review, placing orders, interpretation of diagnostic studies, discussion with consultants, patient, and family members, as well as other required patient management activities is 50 minutes Please note the above document was generated using voice recognition software. It may contain grammatical, syntax or spelling errors. Any formal questions or concerns about the content, text or information contained within the body of this dictation should be directly addressed to the provider for clarification Admission and Anticipated Discharge Date Admission Date: March 16, 2024 Subjective Patient seen and examined at bedside. She is comfortable; not in distress. Response to her name and able to follow simple commands Review of Systems Review of Systems: All systems reviewed & are unremarkable except as noted in Subjective Physical Exam Physical Exam: General Appearance:Obese, no apparent distress, awakeable by voice Head: normocephalic, Atraumatic Eyes: normal inspection, EOMI, Left Eye Post surgical dressing Neck: supple, Trachea midline Respiratory/Chest: Normal breath sounds, CTA, No accessory muscle use Cardiovascular: S1, S2, No murmur. Abdomen/GI:Soft, Non tender, +Protuberant, Bowel sounds present Back: Tender, no erythema or swelling or warmth. Extremities/Musculoskeletal:normal inspection, trace ble edema, L foot Echymosis Neurologic/Psych:AAOXself, moves all extremities. follow simple commands Skin: normal color, warm Results & Data Results & Data Vital Signs (Past 12 Hours) Vital Signs Temp Pulse Pulse Resp BP BP Pulse Ox 03/23/24 07:43 36.9 C 79 20 149/63 H 96 03/23/24 07:15 75 03/23/24 03:15 36.6 C 76 18 136/88 91 03/22/24 23:00 78 03/22/24 22:36 36.9 C 71 18 166/77 H 93 03/22/24 21:00 O2 Del Method 03/23/24 07:43 Room Air 03/23/24 07:15 03/23/24 03:15 Room Air 03/22/24 23:00 03/22/24 22:36 Room Air 03/22/24 21:00 Room Air
[2024-03-23] MEDS: HYDROmorphone INJ 0.5 MG/0.5 ML SYR IV PRN (17:56)
--- NOTE | 2024-03-24 08:01 | Hospitalist Progress Note ---
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 Patient reports that while she was going to the bathroom, she felt lightheaded [denies chest pain/funny sensation in the chest/shortness of breath around the time] and weak and fell [hit back on the wall of the bathroom]. She was found by her granddaughter incontinent of stool and urine on the day of presentation. She is being managed for the following: Fall Metabolic encephalopathy: Patient presenting from home after being found by her family confused and incontinent of stool and urine. Seems like patient was likely down for about 2 days. In the ED, found to have T11-L1 compression fractures and left 2nd through 4th metatarsal fractures, Admitting imagings CTAP: age-indeterminate mild superior endplate compression deformities from T11-L1. Cirrhotic liver noted. Cholelithiasis, no GB wall thickening. Punctate nonobstructing stone within the cystic duct/proximal CBD. C-spine CT/head CT/Face CT:: No acute fracture T-spine CT/L-spine CT/Chest CT: T11-L1 fracture as above. Left foot x-ray: Mildly angulated transverse fracture at the necks of the 2nd through 4th metatarsals MRI Brain on 03/19- no acute abnormality reported MRI thoracic spine- no acute findings MRI lumbar spine- no evidence of fracture; refer to report for additional details. Echo: EF 60 to 65%, mild concentric LVH, left ventricular systolic function normal. will need ziopatch after follow up with PCP. Severe Sepsis POA, secondary to UTI: Lactate, WBC and heart rate elevated at presentation. status post IV fluid resuscitation, lactate down trended. UTI (urinary tract infection): Bacteremia s/p IVF, lactate down trended History of ESBL E. coli, patient started on ertapenem 03/16 UCx +ve for E coli and Bl Cx +ve for K. pneumoniae ID evaluated, deescalated to cefazolin 03/19, recommends MRCP. Plan to treat for 7 days. MRCP didn't show any CBD stone. Repeat Blood culture- NGTD Alcoholic cirrhosis: Lost to follow up with GI Alcohol use disorder Likely hepatic encephalopathy iso cirrhosis Last EGD 2012 - no esophageal or gastric varices, mild portal gastropathy. Admitting LFT elevated [T. bili 6.5, ALP 135, AST 45] Unclear current alcohol use,. Alcohol level negative. Recommend patient cease all alcohol use. Low-sodium diet. Avoid hepatotoxic's. GI evaluated, continue with lactulose with a goal of 3-4 bowel movements a day, follow-up with hepatology on discharge, Outpatient EGD and colonoscopy. started on Xifaxan. Hypernatremiaserum sodium up trended to 146 on 03/23. Started on D5 for 1 L. Follow-up BMP shows improvement. Demand ischemia: trop mildly elevated, flat trend, pt w/ no chest pain. Likely demand ischemia 2/2 acute illness. Portal vein thrombosis: On Coumadin, Hb stable, cw home Coumadin, f/u pt/inr. Compression fracture of body of thoracic vertebra: Compression fracture of lumbar vertebra: CT shows compression fractures T11-L1 MRI thoracic and lumbar above Spine ortho evaled, no brace, She should lift no more than 5 pounds. C/w pain Mx. P/OT. Metatarsal fracture: Left foot XR shows: Mildly angulated transverse fractures at the necks of the second through fourth metatarsals. Ortho evaled, no sx Ix, recommends post op shoe for weight bearing x 1 month. no f/u needed per ortho. DVT PROPHYLAXIS: on Warfarin Disposition- continues to be hospitalized for possible hepatic encephalopathy. will need rehab at discharge. Discussed over the phone with her son (Renan- [phone]); update on patient's current status. Patient has multiple co-morbid conditions and currently severely Deconditioned due to sepsis and fall. Discussed Code Status; CODE STATUS changed to DNR/DNI after the discussion. Long-term prognosis guarded Time spent evaluating patient, direct bedside care, chart review, placing orders, interpretation of diagnostic studies, discussion with consultants, patient, and family members, as well as other required patient management activities is 50 minutes Please note the above document was generated using voice recognition software. It may contain grammatical, syntax or spelling errors. Any formal questions or concerns about the content, text or information contained within the body of this dictation should be directly addressed to the provider for clarification Admission and Anticipated Discharge Date Admission Date: March 16, 2024 Subjective Patient more awake today. She is able to answer few more questions. She reports that pain is well controlled. Review of Systems Review of Systems: All systems reviewed & are unremarkable except as noted in Subjective Physical Exam Physical Exam: General Appearance:Obese, no apparent distress, awakeable by voice Head: normocephalic, Atraumatic Eyes: normal inspection, EOMI, Left Eye Post surgical dressing Neck: supple, Trachea midline Respiratory/Chest: Normal breath sounds, CTA, No accessory muscle use Cardiovascular: S1, S2, No murmur. Abdomen/GI:Soft, Non tender, +Protuberant, Bowel sounds present Back: Tender, no erythema or swelling or warmth. Extremities/Musculoskeletal:normal inspection, trace ble edema, L foot Echymosis Neurologic/Psych:AAOXself, moves all extremities. follow simple commands Skin: normal color, warm Results & Data Results & Data Vital Signs (Past 12 Hours) Vital Signs Temp Pulse Pulse Resp BP BP Pulse Ox 03/24/24 07:26 36.8 C 78 18 141/69 H 96 03/24/24 07:17 77 03/24/24 02:20 36.4 C L 107 H 22 147/86 H 92 03/24/24 00:18 36.7 C 71 18 138/58 L 94 03/23/24 23:00 72 03/23/24 20:55 36.9 C 76 18 150/83 H 96 O2 Del Method 03/24/24 07:26 Room Air 03/24/24 07:17 03/24/24 02:20 Room Air 03/24/24 00:18 Room Air 03/23/24 23:00 03/23/24 20:55 Room Air
[2024-03-24 08:35] LABS: BUN Creatinine Ratio 30.2 (10-20); Calcium 9.2 mg/dl (8.6-10.3); Est GFR (African American) 66.6 ml/min; Est GFR (Non-African American) 57.4 ml/min; Potassium 4.1 mmol/L (3.5-5.1)
[2024-03-24 08:41] LABS: Hematocrit (blood only) 31.2 % (37.0-47.0); Hemoglobin 9.9 g/dl (12.0-16.0); Mean Corpuscular Hemoglobin 35.1 pg (25.0-34.0); Mean Corpuscular Hgb Conc 31.7 g/dL (32.0-36.0); Mean Corpuscular Volume 110.6 fL (80.0-100.0); Nucleated RBC # (auto) 0.03 K/uL (0.00-0.12); Nucleated RBC % (auto) 0.2 %; Platelet Count 47 K/uL (130-400); RDW Coefficient of Variation 17.9 % (11.5-14.5); Red Blood Count 2.82 M/uL (4.20-5.40); White Blood Count 14.84 K/ul (4.8-10.8)
[2024-03-24 08:44] LABS: Basophils # (auto) 0.04 K/uL (0.00-0.20); Basophils % (auto) 0.3 %; Echinocytes 1+; Eosinophils # (auto) 0.11 K/uL (0.00-0.50); Eosinophils % (auto) 0.7 %; Immature Granulocytes # (auto) 0.63 K/uL (0.01-0.20); Immature Granulocytes % (auto) 4.2 %; Lymphocytes % (auto) 6.7 %; Macrocytosis Present; Monocytes # (auto) 1.17 K/uL (0.11-0.59); Monocytes % (auto) 7.9 %; Neutrophils # (auto) 11.89 K/uL (1.40-6.50); Neutrophils % (auto) 80.2 %; Polychromasia 2+
[2024-03-24 08:46] LABS: INR 4.4 (0.9-1.1); Prothrombin Time 41.8 Seconds (9.0-12.0)
--- NOTE | 2024-03-25 08:04 | Hospitalist Progress Note ---
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 Patient reports that while she was going to the bathroom, she felt lightheaded [denies chest pain/funny sensation in the chest/shortness of breath around the time] and weak and fell [hit back on the wall of the bathroom]. She was found by her granddaughter incontinent of stool and urine on the day of presentation. She is being managed for the following: Fall Metabolic encephalopathy: Patient presenting from home after being found by her family confused and incontinent of stool and urine. Seems like patient was likely down for about 2 days. In the ED, found to have T11-L1 compression fractures and left 2nd through 4th metatarsal fractures, Admitting imagings CTAP: age-indeterminate mild superior endplate compression deformities from T11-L1. Cirrhotic liver noted. Cholelithiasis, no GB wall thickening. Punctate nonobstructing stone within the cystic duct/proximal CBD. C-spine CT/head CT/Face CT:: No acute fracture T-spine CT/L-spine CT/Chest CT: T11-L1 fracture as above. Left foot x-ray: Mildly angulated transverse fracture at the necks of the 2nd through 4th metatarsals MRI Brain on 03/19- no acute abnormality reported MRI thoracic spine- no acute findings MRI lumbar spine- no evidence of fracture; refer to report for additional details. Echo: EF 60 to 65%, mild concentric LVH, left ventricular systolic function normal. will need ziopatch after follow up with PCP. Severe Sepsis POA, secondary to UTI: Lactate, WBC and heart rate elevated at presentation. status post IV fluid resuscitation, lactate down trended. UTI (urinary tract infection): Bacteremia s/p IVF, lactate down trended History of ESBL E. coli, patient started on ertapenem 03/16 UCx +ve for E coli and Bl Cx +ve for K. pneumoniae ID evaluated, deescalated to cefazolin 03/19, recommends MRCP. Plan to treat for 7 days. MRCP didn't show any CBD stone. Repeat Blood culture- NGTD Alcoholic cirrhosis: Lost to follow up with GI Alcohol use disorder Likely hepatic encephalopathy iso cirrhosis Last EGD 2012 - no esophageal or gastric varices, mild portal gastropathy. Admitting LFT elevated [T. bili 6.5, ALP 135, AST 45] Unclear current alcohol use,. Alcohol level negative. Recommend patient cease all alcohol use. Low-sodium diet. Avoid hepatotoxic's. GI evaluated, continue with lactulose with a goal of 3-4 bowel movements a day, follow-up with hepatology on discharge, Outpatient EGD and colonoscopy. started on Xifaxan. Hypernatremiaserum sodium up trended to 146 on 03/23. Started on D5 for 1 L. Follow-up BMP shows improvement. again elevated to 148 on 03/25; restarted on D5. Demand ischemia: trop mildly elevated, flat trend, pt w/ no chest pain. Likely demand ischemia 2/2 acute illness. Portal vein thrombosis: On Coumadin, Hb stable, PT/INR elevated; hold coumadim Compression fracture of body of thoracic vertebra: Compression fracture of lumbar vertebra: CT shows compression fractures T11-L1 MRI thoracic and lumbar above Spine ortho evaled, no brace, She should lift no more than 5 pounds. C/w pain Mx. P/OT. Metatarsal fracture: Left foot XR shows: Mildly angulated transverse fractures at the necks of the second through fourth metatarsals. Ortho evaled, no sx Ix, recommends post op shoe for weight bearing x 1 month. no f/u needed per ortho. DVT PROPHYLAXIS: on Warfarin. on hold due to elevated Disposition- continues to be hospitalized for possible hepatic encephalopathy. will need rehab at discharge. Discussed over the phone with her son (Renan- [phone]); update on patient's current status. Patient has multiple co-morbid conditions and currently severely Deconditioned due to sepsis and fall. Discussed Code Status; CODE STATUS changed to DNR/DNI after the discussion. Long-term prognosis guarded. Short term plan is to discharge her to rehab when medically stable. Time spent evaluating patient, direct bedside care, chart review, placing orders, interpretation of diagnostic studies, discussion with consultants, patient, and family members, as well as other required patient management activities is 50 minutes Please note the above document was generated using voice recognition software. It may contain grammatical, syntax or spelling errors. Any formal questions or concerns about the content, text or information contained within the body of this dictation should be directly addressed to the provider for clarification Admission and Anticipated Discharge Date Admission Date: March 16, 2024 Subjective Patient seen and examined at bedside. She is alert oriented to self ; appears confused Reports back pain; improved with medication No significant events overnight Review of Systems Review of Systems: All systems reviewed & are unremarkable except as noted in Subjective Physical Exam Physical Exam: General Appearance:Obese, no apparent distress, awakeable by voice. able to answer few questions Head: normocephalic, Atraumatic Eyes: normal inspection, EOMI, Left Eye Post surgical dressing Neck: supple, Trachea midline Respiratory/Chest: Normal breath sounds, CTA, No accessory muscle use Cardiovascular: S1, S2, No murmur. Abdomen/GI:Soft, Non tender, +Protuberant, Bowel sounds present Back: Tenderness on lower back, no erythema or swelling or warmth. Extremities/Musculoskeletal:normal inspection, 1 +ble edema, L foot Echymosis Neurologic/Psych:AAOXself, moves all extremities. follow simple commands Skin: normal color, warm Results & Data Results & Data Vital Signs (Past 12 Hours) Vital Signs Temp Pulse Pulse Resp BP Pulse Ox O2 Del Method 03/25/24 05:11 86 173/64 H 03/25/24 03:52 36.5 C 83 20 94 Room Air 03/24/24 23:27 36.8 C 86 18 130/76 94 Room Air 03/24/24 22:01 89
[2024-03-25 08:09] LABS: BUN Creatinine Ratio 29.2 (10-20); Calcium 9.5 mg/dl (8.6-10.3); Est GFR (African American) 66.6 ml/min; Est GFR (Non-African American) 57.4 ml/min; Potassium 4.5 mmol/L (3.5-5.1)
[2024-03-25 08:12] LABS: INR 4.8 (0.9-1.1); Prothrombin Time 45.1 Seconds (9.0-12.0)
[2024-03-25 08:26] LABS: Basophils # (auto) 0.03 K/uL (0.00-0.20); Basophils % (auto) 0.2 %; Echinocytes 2+; Eosinophils # (auto) 0.02 K/uL (0.00-0.50); Eosinophils % (auto) 0.1 %; Hematocrit (blood only) 30.2 % (37.0-47.0); Hemoglobin 9.9 g/dl (12.0-16.0); Immature Granulocytes # (auto) 0.38 K/uL (0.01-0.20); Immature Granulocytes % (auto) 2.3 %; Lymphocytes # (auto) 1.06 K/uL (1.20-3.40); Lymphocytes % (auto) 6.3 %; Mean Corpuscular Hgb Conc 32.8 g/dL (32.0-36.0); Mean Corpuscular Volume 109.8 fL (80.0-100.0); Mean Platelet Volume 13.2 fL (9.4-12.4); Monocytes # (auto) 1.16 K/uL (0.11-0.59); Monocytes % (auto) 6.9 %; Neutrophils # (auto) 14.23 K/uL (1.40-6.50); Neutrophils % (auto) 84.2 %; Platelet Count 54 K/uL (130-400); Polychromasia 1+; RDW Coefficient of Variation 18.4 % (11.5-14.5); RDW Standard Deviation 68.5 fL (36.4-46.3); Red Blood Count 2.75 M/uL (4.20-5.40); White Blood Count 16.88 K/ul (4.8-10.8)
[2024-03-25] MEDS: OLANZapine 10 MG/2.1 ML SDV IM STA (14:15)
[2024-03-25] MEDS: DEXTROSE 5% 1,000 ML IV SCH (17:35)
[2024-03-26 07:26] LABS: Hematocrit (blood only) 30.6 % (37.0-47.0); Hemoglobin 9.7 g/dl (12.0-16.0); Mean Corpuscular Hemoglobin 35.5 pg (25.0-34.0); Mean Corpuscular Hgb Conc 31.7 g/dL (32.0-36.0); Mean Corpuscular Volume 112.1 fL (80.0-100.0); Mean Platelet Volume 12.9 fL (9.4-12.4); Platelet Count 51 K/uL (130-400); RDW Coefficient of Variation 18.9 % (11.5-14.5); RDW Standard Deviation 70.5 fL (36.4-46.3); Red Blood Count 2.73 M/uL (4.20-5.40); White Blood Count 14.34 K/ul (4.8-10.8)
[2024-03-26 07:44] LABS: Basophils # (auto) 0.03 K/uL (0.00-0.20); Basophils % (auto) 0.2 %; Echinocytes 1+; Eosinophils # (auto) 0.09 K/uL (0.00-0.50); Eosinophils % (auto) 0.6 %; Immature Granulocytes # (auto) 0.23 K/uL (0.01-0.20); Immature Granulocytes % (auto) 1.6 %; Lymphocytes # (auto) 1.06 K/uL (1.20-3.40); Lymphocytes % (auto) 7.4 %; Macrocytosis Present; Monocytes # (auto) 0.97 K/uL (0.11-0.59); Monocytes % (auto) 6.8 %; Neutrophils # (auto) 11.96 K/uL (1.40-6.50); Neutrophils % (auto) 83.4 %; Polychromasia 1+
[2024-03-26 07:48] LABS: Albumin Level 2.1 gm/dl (3.4-5.0); Anion Gap 8 (3-11); Bilirubin,Total 7.9 mg/dl (0.2-1.0); Calcium 8.9 mg/dl (8.6-10.3); Carbon Dioxide 22 mmol/L (21-32); Chloride 113 mmol/L (98-107); Potassium 4.1 mmol/L (3.5-5.1); Sodium 143 mmol/L (136-145)
[2024-03-26 07:54] LABS: BUN Creatinine Ratio 26.7 (10-20); Blood Urea Nitrogen 23 mg/dl (6-23); Creatinine Clr Calc Pharmacy 62.4 ml/min; Est GFR (African American) 76.1 ml/min; Est GFR (Non-African American) 65.6 ml/min; Glucose 110 mg/dl (70-99(Fasting))
[2024-03-26 07:55] LABS: Alanine Aminotransferase < 3 U/L (7-52); Albumin Globulin Ratio 0.5 (0.9-2); Alkaline Phosphatase 121 U/L (34-104); Aspartate Aminotransferase 64 U/L (13-39); Globulin 3.9 gm/dl (2.5-4.0)
[2024-03-26 07:58] LABS: INR 5.4 (0.9-1.1); Prothrombin Time 50.5 Seconds (9.0-12.0)
--- NOTE | 2024-03-26 10:51 | Hospitalist Progress Note ---
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 She was found by her granddaughter incontinent of stool and urine on the day of presentation. She is being managed for the following: Severe Sepsis POA, secondary to UTI: Lactate, WBC and heart rate elevated at presentation. status post IV fluid resuscitation, lactate down trended. UTI (urinary tract infection): Bacteremia s/p IVF, lactate down trended History of ESBL E. coli, patient started on ertapenem 03/16 UCx +ve for E coli and Bl Cx +ve for K. pneumoniae ID evaluated, deescalated to cefazolin 03/19, recommends MRCP. Plan to treat for 7 days. MRCP didn't show any CBD stone. Repeat Blood culture- NGTD Fall Metabolic encephalopathy: Patient presenting from home after being found by her family confused and incontinent of stool and urine. Seems like patient was likely down for about 2 days. In the ED, found to have T11-L1 compression fractures and left 2nd through 4th metatarsal fractures, Admitting imagings CTAP: age-indeterminate mild superior endplate compression deformities from T11-L1. Cirrhotic liver noted. Cholelithiasis, no GB wall thickening. Punctate nonobstructing stone within the cystic duct/proximal CBD. C-spine CT/head CT/Face CT:: No acute fracture T-spine CT/L-spine CT/Chest CT: T11-L1 fracture as above. Left foot x-ray: Mildly angulated transverse fracture at the necks of the 2nd through 4th metatarsals MRI Brain on 03/19- no acute abnormality reported MRI thoracic spine- no acute findings MRI lumbar spine- no evidence of fracture; refer to report for additional details. Echo: EF 60 to 65%, mild concentric LVH, left ventricular systolic function normal. Alcoholic cirrhosis: Lost to follow up with GI Alcohol use disorder Likely hepatic encephalopathy iso cirrhosis Last EGD 2012 - no esophageal or gastric varices, mild portal gastropathy. Admitting LFT elevated [T. bili 6.5, ALP 135, AST 45] Unclear current alcohol use,. Alcohol level negative. Recommend patient cease all alcohol use. Low-sodium diet. Avoid hepatotoxic's. GI evaluated, continue with lactulose with a goal of 3-4 bowel movements a day, follow-up with hepatology on discharge, Outpatient EGD and colonoscopy. started on Xifaxan. Hypernatremiaserum sodium up trended to 146 on 03/23. Started on D5 for 1 L. Follow-up BMP shows improvement. again elevated to 148 on 03/25; restarted on D5. improvement on serum sodim level Demand ischemia: trop mildly elevated, flat trend, pt w/ no chest pain. Likely demand ischemia 2/2 acute illness. Portal vein thrombosis: On Coumadin, Hb stable, PT/INR elevated; hold coumadim, vitamin k 2.5 ordered as pt/inr trended up on 03/26. Compression fracture of body of thoracic vertebra: Compression fracture of lumbar vertebra: CT shows compression fractures T11-L1 MRI thoracic and lumbar above Spine ortho evaled, no brace, She should lift no more than 5 pounds. C/w pain Mx. P/OT. Metatarsal fracture: Left foot XR shows: Mildly angulated transverse fractures at the necks of the second through fourth metatarsals. Ortho evaled, no sx Ix, recommends post op shoe for weight bearing x 1 month. no f/u needed per ortho. DVT PROPHYLAXIS: on Warfarin. on hold due to elevated PT/INR Disposition- continues to be hospitalized for AMS ( multifactorial- hepatic encephalopathy, sepsis). will need rehab at discharge. Discussed over the phone with her son (Renan- [phone]); update on patient's current status on 03/24/2024. Patient has multiple co-morbid conditions and currently severely Deconditioned due to sepsis and fall. Discussed Code Status; CODE STATUS changed to DNR/DNI after the discussion. Long-term p rognosis guarded. Short term plan is to discharge her to rehab when medically stable. Time spent evaluating patient, direct bedside care, chart review, placing orders, interpretation of diagnostic studies, discussion with consultants, patient, and family members, as well as other required patient management activities is 50 minutes Please note the above document was generated using voice recognition software. It may contain grammatical, syntax or spelling errors. Any formal questions or concerns about the content, text or information contained within the body of this dictation should be directly addressed to the provider for clarification Admission and Anticipated Discharge Date Admission Date: March 16, 2024 Subjective Patient is awake; oriented to self, not oriented to time place or person Denies pain or discomfort Vital signs are stable No significant events overnight Review of Systems Review of Systems: Unobtainable due to mental health condition Physical Exam Physical Exam: General Appearance:Obese, no apparent distress, awakeable by voice. Head: normocephalic, Atraumatic Eyes: normal inspection, EOMI, Left Eye Post surgical dressing Neck: supple, Trachea midline Respiratory/Chest: Normal breath sounds, CTA, No accessory muscle use Cardiovascular: S1, S2, No murmur. Abdomen/GI:Soft, Non tender, +Protuberant, Bowel sounds present Back: Tenderness on lower back, no erythema or swelling or warmth. Extremities/Musculoskeletal:normal inspection, 1 +ble edema, L foot Echymosis Neurologic/Psych:AAOXself, moves all extremities. follow simple commands Skin: normal color, warm Results & Data Results & Data Vital Signs (Past 12 Hours) Vital Signs Temp Pulse Pulse Resp BP Pulse Ox O2 Del Method 03/26/24 10:44 36.8 C 58 L 18 164/78 H 93 Room Air 03/26/24 07:21 36.8 C 84 20 140/84 96 Room Air 03/26/24 04:19 37.1 C 73 20 175/79 H 95 Room Air 03/25/24 23:00 70
[2024-03-26] MEDS: PHYTONADIONE 5 MG TAB PO STA (11:32)
[2024-03-27 07:24] LABS: Mean Corpuscular Hemoglobin 36.1 pg (25.0-34.0); Mean Corpuscular Hgb Conc 32.1 g/dL (32.0-36.0); Mean Corpuscular Volume 112.4 fL (80.0-100.0); Mean Platelet Volume 12.9 fL (9.4-12.4); Platelet Count 53 K/uL (130-400); RDW Coefficient of Variation 19.2 % (11.5-14.5); RDW Standard Deviation 77.2 fL (36.4-46.3); Red Blood Count 2.49 M/uL (4.20-5.40); White Blood Count 16.23 K/ul (4.8-10.8)
[2024-03-27 07:33] LABS: Basophils # (auto) 0.02 K/uL (0.00-0.20); Basophils % (auto) 0.1 %; Echinocytes 1+; Eosinophils # (auto) 0.06 K/uL (0.00-0.50); Eosinophils % (auto) 0.4 %; Immature Granulocytes # (auto) 0.18 K/uL (0.01-0.20); Immature Granulocytes % (auto) 1.1 %; Lymphocytes % (auto) 6.2 %; Macrocytosis Present; Monocytes # (auto) 1.05 K/uL (0.11-0.59); Monocytes % (auto) 6.5 %; Neutrophils # (auto) 13.92 K/uL (1.40-6.50); Neutrophils % (auto) 85.7 %; Polychromasia 1+
[2024-03-27 07:37] LABS: Albumin Globulin Ratio 0.5 (0.9-2); BUN Creatinine Ratio 31.2 (10-20); Calcium 8.8 mg/dl (8.6-10.3); Creatinine Clr Calc Pharmacy 69.7 ml/min; Est GFR (African American) 86.9 ml/min; Globulin 3.8 gm/dl (2.5-4.0); Potassium 3.5 mmol/L (3.5-5.1); Total Protein 5.8 gm/dl (6.0-8.3)
[2024-03-27 07:51] LABS: INR 4.7 (0.9-1.1); Prothrombin Time 44.7 Seconds (9.0-12.0)
--- NOTE | 2024-03-27 09:22 | Hospitalist Progress Note ---
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 She was found by her granddaughter incontinent of stool and urine on the day of presentation. She is being managed for the following: Severe Sepsis POA, secondary to UTI: Lactate, WBC and heart rate elevated at presentation. status post IV fluid resuscitation, lactate down trended. UTI (urinary tract infection): Bacteremia s/p IVF, lactate down trended History of ESBL E. coli, patient started on ertapenem 03/16 UCx +ve for E coli and Bl Cx +ve for K. pneumoniae ID evaluated, deescalated to cefazolin 03/19, recommends MRCP. Completed 7 days of antibiotics. MRCP didn't show any CBD stone. Repeat Blood culture- NGTD Fall Metabolic encephalopathy: Patient presenting from home after being found by her family confused and incontinent of stool and urine. Seems like patient was likely down for about 2 days. In the ED, found to have T11-L1 compression fractures and left 2nd through 4th metatarsal fractures, Admitting imagings CTAP: age-indeterminate mild superior endplate compression deformities from T11-L1. Cirrhotic liver noted. Cholelithiasis, no GB wall thickening. Punctate nonobstructing stone within the cystic duct/proximal CBD. C-spine CT/head CT/Face CT:: No acute fracture T-spine CT/L-spine CT/Chest CT: T11-L1 fracture as above. Left foot x-ray: Mildly angulated transverse fracture at the necks of the 2nd through 4th metatarsals MRI Brain on 03/19- no acute abnormality reported MRI thoracic spine- no acute findings MRI lumbar spine- no evidence of fracture; refer to report for additional details. Echo: EF 60 to 65%, mild concentric LVH, left ventricular systolic function normal. Alcoholic cirrhosis: Lost to follow up with GI Alcohol use disorder Likely hepatic encephalopathy iso cirrhosis Last EGD 2012 - no esophageal or gastric varices, mild portal gastropathy. Admitting LFT elevated Unclear current alcohol use,. Alcohol level negative. Recommend patient cease all alcohol use. Low-sodium diet. Avoid hepatotoxic's. GI evaluated, continue with lactulose with a goal of 3-4 bowel movements a day, follow-up with hepatology on discharge, Outpatient EGD and colonoscopy. started on Xifaxan. Hypernatremiaserum sodium up trended to 146 on 03/23. Started on D5 for 1 L. Follow-up BMP shows improvement. again elevated to 148 on 03/25; restarted on D5. improvement on serum sodium level. Demand ischemia: trop mildly elevated, flat trend, pt w/ no chest pain. Likely demand ischemia 2/2 acute illness. Portal vein thrombosis: On Coumadin, Hb stable, PT/INR elevated; hold Coumadin, vitamin k 2.5 ordered as pt/inr trended up on 03/26. Compression fracture of body of thoracic vertebra: Compression fracture of lumbar vertebra: CT shows compression fractures T11-L1 MRI thoracic and lumbar above Spine ortho evaled, no brace, She should lift no more than 5 pounds. C/w pain Mx. P/OT. Metatarsal fracture: Left foot XR shows: Mildly angulated transverse fractures at the necks of the second through fourth metatarsals. Ortho evaled, no sx Ix, recommends post op shoe for weight bearing x 1 month. no f/u needed per ortho. DVT PROPHYLAXIS: on Warfarin. on hold due to elevated PT/INR Disposition- continues to be hospitalized for AMS ( multifactorial- hepatic encephalopathy, sepsis). will need rehab at discharge. Discussed over the phone with her son (Renan- [phone]); update on patient's current status on 03/24/2024. Patient has multiple co-morbid conditions and currently severely Deconditioned due to sepsis and fall. Discussed Code Status; CODE STATUS changed to DNR/DNI after the discussion.Discussed with him again on 03/27; patient more interactive with family as per him. Plan is to transition her to rehab once her mentation become consistent and alert. He is agreeable with the plan. Time spent evaluating patient, direct bedside care, chart review, placing orders, interpretation of diagnostic studies, discussion with consultants, patient, and family members, as well as other required patient management activities is 50 minutes Please note the above document was generated using voice recognition software. It may contain grammatical, syntax or spelling errors. Any formal questions or concerns about the content, text or information contained within the body of this dictation should be directly addressed to the provider for clarification Admission and Anticipated Discharge Date Admission Date: March 16, 2024 Subjective patient more awake and interactive today; able to follow some commands and answer some questions appropriately Vital signs are stable and she is saturating well on room air. Review of Systems Review of Systems: All systems reviewed & are unremarkable except as noted in Subjective Physical Exam Physical Exam: General Appearance:Obese, no apparent distress, awakeable by voice. Head: normocephalic, Atraumatic Eyes: normal inspection, EOMI, Left Eye Post surgical dressing Neck: supple, Trachea midline Respiratory/Chest: Normal breath sounds, CTA, No accessory muscle use Cardiovascular: S1, S2, No murmur. Abdomen/GI:Soft, Non tender, +Protuberant, Bowel sounds present Back: Tenderness on lower back, no erythema or swelling or warmth. Extremities/Musculoskeletal:normal inspection, 1 +ble edema, L foot Echymosis Neurologic/Psych:AAOXself, moves all extremities. follow simple commands Skin: normal color, warm Results & Data Results & Data Vital Signs (Past 12 Hours) Vital Signs Temp Pulse Pulse Resp BP BP Pulse Ox 03/27/24 07:26 36.7 C 80 18 158/74 H 144/77 H 97 03/27/24 02:48 36.8 C 82 20 158/82 H 95 03/26/24 23:00 69 03/26/24 22:45 36.7 C 71 20 160/77 H 93 O2 Del Method 03/27/24 07:26 Room Air 03/27/24 02:48 Room Air 03/26/24 23:00 03/26/24 22:45 Room Air
[2024-03-28 07:00] LABS: Basophils # (auto) 0.02 K/uL (0.00-0.20); Basophils % (auto) 0.1 %; Eosinophils # (auto) 0.12 K/uL (0.00-0.50); Eosinophils % (auto) 0.8 %; Hematocrit (blood only) 27.5 % (37.0-47.0); Hemoglobin 8.7 g/dl (12.0-16.0); Immature Granulocytes # (auto) 0.16 K/uL (0.01-0.20); Immature Granulocytes % (auto) 1.1 %; Lymphocytes # (auto) 1.02 K/uL (1.20-3.40); Lymphocytes % (auto) 6.8 %; Mean Corpuscular Hgb Conc 31.6 g/dL (32.0-36.0); Mean Corpuscular Volume 113.6 fL (80.0-100.0); Mean Platelet Volume 12.9 fL (9.4-12.4); Monocytes # (auto) 0.96 K/uL (0.11-0.59); Monocytes % (auto) 6.4 %; Neutrophils # (auto) 12.78 K/uL (1.40-6.50); Neutrophils % (auto) 84.8 %; Platelet Count 49 K/uL (130-400); RDW Coefficient of Variation 19.4 % (11.5-14.5); RDW Standard Deviation 80.4 fL (36.4-46.3); Red Blood Count 2.42 M/uL (4.20-5.40); White Blood Count 15.06 K/ul (4.8-10.8)
[2024-03-28 07:14] LABS: Albumin Globulin Ratio 0.5 (0.9-2); BUN Creatinine Ratio 30.2 (10-20); Bilirubin,Total 12.7 mg/dl (0.2-1.0); Creatinine Clr Calc Pharmacy 61.5 ml/min; Est GFR (African American) 76.1 ml/min; Est GFR (Non-African American) 65.6 ml/min; Globulin 3.8 gm/dl (2.5-4.0); Potassium 3.7 mmol/L (3.5-5.1); Total Protein 5.8 gm/dl (6.0-8.3)
[2024-03-28 07:26] LABS: INR 4.5 (0.9-1.1); Prothrombin Time 43.1 Seconds (9.0-12.0)
[2024-03-28 07:30] LABS: Echinocytes 1+; Macrocytosis Present; Polychromasia 2+
[2024-03-28] MEDS: OLANZapine 10 MG/2.1 ML SDV IM ONE (11:26)
[2024-03-28 12:45] LABS: Base Excess VBG -0.5 mEq/L; HCO3 VBG 24 mmol/L; Oxygen Saturation VBG < 60.0 %; PCO2 VBG 39 mmHg (38-50); PO2 VBG 21 mmHg
--- NOTE | 2024-03-28 14:32 | Gastroenterology Progress Note ---
Date of Service March 28, 2024 Assessment & Plan (1) Cirrhosis: Plan: Reevaluated patient for persistent confusion. Appears to have acute on chronic liver failure due to alcoholic cirrhosis. Cannot accurately assess Maddrey score in light of anticoagulation, however would not recommend steroids at this time. Need to rule out precipitating factors. Suspect element of dehydration in light of hyperchloremia and hypernatremia as well as elevated BUN. In addition need to rule out any precipitating factors such as infection. Recommend urine cultures, chest x-ray, blood cultures. Will obtain an ultrasound to assess for presence of ascites and if present a diagnostic paracentesis. Continue present regimen of lactulose and rifaximin. Would consider reimaging her head in light of coagulopathy if cannot find another cause for her confusion. Admission and Anticipated Discharge Date Admission Date: March 16, 2024 Subjective Patient confused agitated unable to obtain accurate history from her. Asked to reassess her mental status since her admission. Review of Systems Review of Systems: Unable to obtain due to confusion Physical Exam Physical Exam: Chest clear to auscultation Cardiac exam physiologic Abdomen soft nontender no masses no rebound no guarding Hand tremors but no definite asterixis Results & Data Results & Data Vital Signs (Past 12 Hours) Vital Signs Temp Pulse Resp BP BP Pulse Ox O2 Del Method 03/28/24 12:35 Room Air 03/28/24 11:59 36.8 C 78 18 135/71 96 Room Air 03/28/24 07:54 36.7 C 80 20 129/76 129/76 97 Room Air 03/28/24 02:43 36.8 C 77 18 137/87 97 Room Air Laboratory Results Laboratory Results - last 48 hr 03/27/24 03/28/24 03/28/24 06:51 06:37 12:25 WBC 16.23 H 15.06 H RBC 2.49 L 2.42 L Hgb 9.0 L 8.7 L Hct 28.0 L 27.5 L MCV 112.4 H 113.6 H MCH 36.1 H 36.0 H MCHC 32.1 31.6 L RDW Std Deviation 77.2 H 80.4 H RDW Coeff of [place] 19.2 H 19.4 H Plt Count 53 L 49 L MPV 12.9 H 12.9 H Immature Gran % (Auto) 1.1 1.1 Neut % (Auto) 85.7 84.8 Lymph % (Auto) 6.2 6.8 [place] % (Auto) 6.5 6.4 Eos % (Auto) 0.4 0.8 Baso % (Auto) 0.1 0.1 Neut # (Auto) 13.92 H 12.78 H Lymph # (Auto) 1.00 L 1.02 L [place] # (Auto) 1.05 H 0.96 H Eos # (Auto) 0.06 0.12 Baso # (Auto) 0.02 0.02 Immature Gran # (Auto) 0.18 0.16 Polychromasia 1+ 2+ Macrocytosis Present Present Echinocytes 1+ 1+ PT 44.7 H 43.1 H INR 4.7 H 4.5 H VBG pH 7.40 VBG pCO2 39 VBG pO2 21 VBG HCO3 24 VBG O2 Saturation < 60.0 VBG Base Excess -0.5 Sodium 143 144 Potassium 3.5 3.7 Chloride 112 H 112 H Carbon Dioxide 26 26 Anion Gap 5 6 BUN 24 H 26 H Creatinine 0.77 0.86 Est Cr Clr Drug Dosing 69.7 61.5 Est GFR ( Amer) 86.9 76.1 Est GFR (Non-Af Amer) 75.0 65.6 BUN/Creatinine Ratio 31.2 H 30.2 H Glucose 123 H 98 Calcium 8.8 9.0 Total Bilirubin 11.0 H 12.7 H AST 72 H 80 H ALT 4 L 4 L Alkaline Phosphatase 124 H 131 H Ammonia 19.0 Total Protein 5.8 L 5.8 L Albumin 2.0 L 2.0 L Globulin 3.8 3.8 Albumin/Globulin Ratio 0.5 L 0.5 L PG Care Time/CCT Total # of Minutes Spent Total Time Spent with Patient: Total time spent is greater than 50% in coordination of care (as documented) at patient's floor/unit and/or counseling patient: Coding Level of Care Code 34957 SUB INP/OBS CARE 3/50MIN Diagnoses Cirrhosis K74.60 Hepatic cirrhosis type: unspecified hepatic cirrhosis (1) Cirrhosis Hepatic cirrhosis type: unspecified hepatic cirrhosis
--- NOTE | 2024-03-28 15:05 | XRay Report ---
XR chest 1V portable HISTORY: Altered Mental Status COMPARISON: Chest CT 03/16/2024. FINDINGS: There are low lung volumes. No pneumothorax. No pleural effusions. The heart is mildly enla rged. Trace bilateral pleural effusions are again noted. Bibasilar densities favor dependent changes. The upper lung zones are clear. Mild central pulmonary vascular congestion without overt edema. No a cute fractures. IMPRESSION: Cardiomegaly with mild congestive change and trace bilateral pleural effusions. ACT 112: Negative or not required by law. Electronically signed by: Dl Bey M.D. 03/28/2024 3:04 PM
[2024-03-28] MEDS: LACTATED RINGER'S 1,000 ML IV ONE (15:06)
--- NOTE | 2024-03-28 16:16 | CT Scan Report ---
CT OF THE HEAD WITHOUT CONTRAST CLINICAL HISTORY: Altered mental status. COMPARISON STUDY: Head CT and MRI of the brain March 19, 2024. CT DOSE: 547.75 mGy.cm TECHNIQUE: Helical axial images of the head were obtained without IV contrast. Automated exposure con trol was utilized for the study. A dose lowering technique was utilized adhering to the principles o f ALARA. FINDINGS: No acute intracranial hemorrhage, midline shift or mass effect is present. The ventricular system is stable. White matter hypodensities are unchanged and favor small vessel disease. The basal cisterns are patent. No extra-axial collections are present. There are no findings to suggest acute d ural sinus thrombosis or acute territorial infarct. No significant calvarial abnormalities are presen t. Visualized portions of the sinuses and mastoid air cells are clear. 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 IMPRESSION: No acute intracranial findings. No change in appearance of the brain. ACT 112: Negative or not required by law. Electronically signed by: Giles Brown M.D. 03/28/2024 4:15 PM
--- NOTE | 2024-03-28 16:21 | Hospitalist Progress Note ---
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 She was found by her granddaughter incontinent of stool and urine on the day of presentation. She is being managed for the following: Severe Sepsis POA Secondary to UTI Lactate levels trended down UTI Klebsiella bacteremia H/O ESBL --MRCP:Cholelithiasis without cholecystitis or common bile duct stone. Cirrhosis. --Blood cultures grew Klebsiella -- Repeat blood culture negative -- Urine culture grew E. coli -- Repeat urine culture 3 types of organisms -- Received ertapenem>> transition to cefazolin--completed 7-day antibiotic course -- Appreciate ID input Given persistent encephalopathy, restarted on empiric ertapenem Follow-up repeat cultures Check ultrasound for ascites Acute metabolic encephalopathy: Likely multifactorial Fall Patient presenting from home after being found by her family confused and incontinent of stool and urine. Seems like patient was likely down for about 2 days. In the ED, found to have T11-L1 compression fractures and left 2nd through 4th metatarsal fractures Admitting imaging: CTAP: age-indeterminate mild superior endplate compression deformities from T11-L1. Cirrhotic liver noted. Cholelithiasis, no GB wall thickening. Punctate nonobstructing stone within the cystic duct/proximal CBD. C-spine CT/head CT/Face CT:: No acute fracture T-spine CT/L-spine CT/Chest CT: T11-L1 fracture as above. Left foot x-ray: Mildly angulated transverse fracture at the necks of the 2nd through 4th metatarsals MRI Brain on 03/19- no acute abnormality reported MRI thoracic spine- no acute findings MRI lumbar spine- no evidence of fracture; refer to report for additional details. --Echo: EF 60 to 65%, mild concentric LVH, left ventricular systolic function normal. Fall precautions Appreciate orthopedics input: Postop shoe, can weight-bear as tolerated. No surgical intervention. No brace needed for vertebral fractures. PT OT as able Alcoholic cirrhosis: Alcohol use disorder Likely hepatic encephalopathy due to cirrhosis Possible Wernicke's encephalopathy --Last EGD 2012 - no esophageal or gastric varices, mild portal gastropathy. Admitting LFT elevated --Recommend patient cease all alcohol use. Low-sodium diet. Avoid hepatotoxic's. --Avoid hepatotoxic agents as able Started on IV thiamine Reorient frequently to minimize any delirium LFTs worsening Continue lactulose to have 3-4 good bowel movements per day Also started on rifaximin Needs outpatient EGD, colonoscopy Needs follow-up with hepatology as outpatient Monitor LFTs Hypernatremia Sodium levels improved to 144 IV fluids as needed Monitor volume status, sodium levels Demand ischemia: trop mildly elevated Likely demand ischemia 2/2 acute illness. Portal vein thrombosis: Coumadin on hold Elevated INR Compression fracture of body of thoracic vertebra: Compression fracture of lumbar vertebra: CT shows compression fractures T11-L1 MRI thoracic and lumbar above Orthopedic spine evaluated, no brace, She should lift no more than 5 pounds. C/w pain Mx. P/OT. Metatarsal fracture: Left foot XR shows: Mildly angulated transverse fractures at the necks of the second through fourth metatarsals. Ortho evaled, no sx Ix, recommends post op shoe for weight bearing x 1 month. no f/u needed per ortho. --Management as above DVT Px: Elevated INR Hold Coumadin Code Status DNI/DNR Disposition To be determined Admission and Anticipated Discharge Date Admission Date: March 16, 2024 Subjective Patient is seen and examined at bedside Confused and intermittently combative to staff Unable to obtain any meaningful history Updated patient's granddaughter over the phone Discussed with gastroenterology today Review of Systems Review of Systems: Other Physical Exam Physical Exam: Physical Exam: Vitals signs as noted above General Appearance:Obese, Ill appearing Head: normocephalic, Atraumatic Eyes: normal inspection, EOMI, +Icteric Neck: supple, Trachea midline Respiratory/Chest: Normal breath sounds, CTA, No accessory muscle use Cardiovascular: S1, S2, No murmur Abdomen/GI:Soft, Non tender, +Protuberant, Bowel sounds present Extremities/Musculoskeletal:normal inspection, Left Foot Ecchymosis, 2+ edema Neurologic/Psych:Alert, awake, confused, grossly no focal neurological deficits Skin: normal color, warm,+Jaundice, + Multiple Ecchymosis Results & Data Results & Data Vital Signs (Past 12 Hours) Vital Signs Temp Pulse Pulse Resp BP BP Pulse Ox 03/28/24 16:14 36.5 C 60 16 118/79 98 03/28/24 16:01 73 03/28/24 12:35 03/28/24 11:59 36.8 C 78 18 135/71 96 03/28/24 07:54 36.7 C 80 20 129/76 129/76 97 O2 Del Method 03/28/24 16:14 Room Air 03/28/24 16:01 03/28/24 12:35 Room Air 03/28/24 11:59 Room Air 03/28/24 07:54 Room Air Laboratory Results Short CBC 03/28/24 Range/Units 06:37 WBC 15.06 H (4.8-10.8) K/ul Hgb 8.7 L (12.0-16.0) g/dl Hct 27.5 L (37.0-47.0) % Plt Count 49 L (130-400) K/uL BMP 03/28/24 06:37 Sodium 144 Potassium 3.7 Chloride 112 H Carbon Dioxide 26 BUN 26 H Creatinine 0.86 Glucose 98 Calcium 9.0 Liver Function 03/28/24 Range/Units 06:37 Total Bilirubin 12.7 H (0.2-1.0) mg/dl AST 80 H (13-39) U/L ALT 4 L (7-52) U/L Alkaline Phosphatase 131 H (34-104) U/L Albumin 2.0 L (3.4-5.0) gm/dl
[2024-03-28] MEDS: THIAMINE HCL 200 MG in SODIUM CHLORIDE 0.9% 50 ML IV SCH ×2 (18:06→18:15)
[2024-03-28] MEDS: ERTAPENEM SODIUM 1,000 MG in SYRINGE 0 ML IV SCH (18:24)
--- NOTE | 2024-03-29 07:15 | Ultrasound Report ---
US abdomen ltd ascites HISTORY: 78 years-old Female ascites COMPARISON: CT abdomen and pelvis 03/16/2024 TECHNIQUE: Multiple real-time sonographic images of the abdomen were obtained assessing grayscale nino earance FINDINGS/IMPRESSION: No ascites identified on today's study. ACT 112: Negative or not required by law. The above report was generated using voice recognition software. It may contain grammatical, syntax o r spelling errors. Electronically signed by: Johny Fischer M.D. 03/29/2024 7:14 AM
[2024-03-29 11:22] LABS: Hematocrit (blood only) 22.4 % (37.0-47.0); Hemoglobin 7.3 g/dl (12.0-16.0); Mean Corpuscular Hemoglobin 36.3 pg (25.0-34.0); Mean Corpuscular Hgb Conc 32.6 g/dL (32.0-36.0); Mean Corpuscular Volume 111.4 fL (80.0-100.0); Mean Platelet Volume 12.8 fL (9.4-12.4); Platelet Count 60 K/uL (130-400); RDW Coefficient of Variation 19.7 % (11.5-14.5); RDW Standard Deviation 77.3 fL (36.4-46.3); Red Blood Count 2.01 M/uL (4.20-5.40); White Blood Count 16.71 K/ul (4.8-10.8)
--- NOTE | 2024-03-29 11:40 | Gastroenterology Progress Note ---
Date of Service March 29, 2024 Assessment & Plan (1) Cirrhosis: Plan: US without ascites, Head CT negative, ammonia negative. Patient is currently on Thiamine. Continue present regimen of Lactulose and Rifaximin. No obvious new liver concerns to explain her mental status. Would consider neurology evaluation. Continue to assess for other causes of encephalopathy. - Continue Lactulose titrated to 3-4 BMs daily -Xifaxan 550 twice daily - She needs to re-establish with [facility] GI/Hepatology at discharge - OP EGD/Colonoscopy - MELD labs every 6 months - ABD imaging w/ AFP every 6 months - EGD every 1-2 years - No ETOH - No NSAIDs - Avoid hepatotoxins - Low NA diet, less than 2G daily - Less than 2G acetaminophen containing products daily Admission and Anticipated Discharge Date Admission Date: March 16, 2024 Supervising Physician Co-Signing Physician Notes I saw and examined this patient with our nurse practitioner and agree with her assessment and plan. Continues to be confused and somewhat agitated. Spoke with family members who says she is having trouble with walking and balance at home. So far we have not found a precipitating factor for her progressive confusion. To be confabulating making no sense in light of her longstanding alcohol use and cirrhosis need to consider Warnicke's encephalopathy await neurology input regarding this. Subjective Patient confused. CT head on 03/28/24 was unremarkable. Ammonia normal. US abdomen negative. WBC count 15,000, MCV 113,600. Review of Systems Constitutional: confusion Physical Exam Physical Exam: disoriented speech/confabulation Constitutional: well developed Respiratory: normal respiratory effort Gastrointestinal (Abdomen): Percussion/Palpation: abdomen soft; abdomen nontender Psychiatric: Orientation: alert Results & Data Results & Data Vital Signs (Past 12 Hours) Vital Signs Temp Pulse Pulse Resp BP BP Pulse Ox 03/29/24 07:49 36.9 C 88 16 139/81 95 03/29/24 07:00 81 03/29/24 03:02 36.7 C 89 18 120/73 97 O2 Del Method 03/29/24 07:49 Room Air 03/29/24 07:00 03/29/24 03:02 Room Air Laboratory Results Laboratory Results - last 48 hr 03/28/24 03/28/24 03/29/24 06:37 12:25 11:00 WBC 15.06 H 16.71 H RBC 2.42 L 2.01 L Hgb 8.7 L 7.3 L Hct 27.5 L 22.4 L MCV 113.6 H 111.4 H MCH 36.0 H 36.3 H MCHC 31.6 L 32.6 RDW Std Deviation 80.4 H 77.3 H RDW Coeff of Martinez 19.4 H 19.7 H Plt Count 49 L 60 L MPV 12.9 H 12.8 H Immature Gran % (Auto) 1.1 Neut % (Auto) 84.8 Lymph % (Auto) 6.8 Barber % (Auto) 6.4 Eos % (Auto) 0.8 Baso % (Auto) 0.1 Neut # (Auto) 12.78 H Lymph # (Auto) 1.02 L Barber # (Auto) 0.96 H Eos # (Auto) 0.12 Baso # (Auto) 0.02 Immature Gran # (Auto) 0.16 Polychromasia 2+ Macrocytosis Present Echinocytes 1+ PT 43.1 H 45.5 H INR 4.5 H 4.8 H VBG pH 7.40 VBG pCO2 39 VBG pO2 21 VBG HCO3 24 VBG O2 Saturation < 60.0 VBG Base Excess -0.5 Sodium 144 143 Potassium 3.7 3.9 Chloride 112 H 113 H Carbon Dioxide 26 25 Anion Gap 6 5 BUN 26 H 33 H Creatinine 0.86 0.91 Est Cr Clr Drug Dosing 61.5 58.1 Est GFR ( Amer) 76.1 71.0 Est GFR (Non-Af Amer) 65.6 61.3 BUN/Creatinine Ratio 30.2 H 36.3 H Glucose 98 82 Calcium 9.0 8.9 Magnesium 1.6 L Total Bilirubin 12.7 H 13.4 H AST 80 H 96 H ALT 4 L 9 Alkaline Phosphatase 131 H 122 H Ammonia 19.0 Total Protein 5.8 L 5.3 L Albumin 2.0 L 1.9 L Globulin 3.8 3.4 Albumin/Globulin Ratio 0.5 L 0.6 L TSH 1.821 PG Care Time/CCT Total # of Minutes Spent Total Time Spent with Patient: Total time spent is greater than 50% in coordination of care (as documented) at patient's floor/unit and/or counseling patient: Coding Level of Care Code 66608 SUB INP/OBS CARE 3/50MIN Diagnoses Cirrhosis K74.60 Hepatic cirrhosis type: unspecified hepatic cirrhosis (1) Cirrhosis Hepatic cirrhosis type: unspecified hepatic cirrhosis
[2024-03-29 11:42] LABS: Albumin Globulin Ratio 0.6 (0.9-2); Albumin Level 1.9 gm/dl (3.4-5.0); BUN Creatinine Ratio 36.3 (10-20); Bilirubin,Total 13.4 mg/dl (0.2-1.0); Calcium 8.9 mg/dl (8.6-10.3); Creatinine Clr Calc Pharmacy 58.1 ml/min; Est GFR (Non-African American) 61.3 ml/min; Globulin 3.4 gm/dl (2.5-4.0); Magnesium 1.6 mg/dl (1.7-2.4); Potassium 3.9 mmol/L (3.5-5.1); Total Protein 5.3 gm/dl (6.0-8.3)
[2024-03-29 11:54] LABS: Thyroid Stimulating Hormone 1.821 uIu/ml (0.300-4.500)
[2024-03-29 11:55] LABS: INR 4.8 (0.9-1.1); Prothrombin Time 45.5 Seconds (9.0-12.0)
[2024-03-29] MEDS: MAGNESIUM SULFATE / D5W 1 GM/100 ML BAG IV ONE (12:42)
--- NOTE | 2024-03-29 13:48 | Neurology Consultation ---
Date of Consultation March 29, 2024 Assessment & Plan (1) Encephalopathy acute: encephalopathy in a 78F with a PMH of alcoholic cirrhosis, who presented after a fall resulting in multiple fractures. ON exam she does have myoclonus and it is otherwise non-focal. MRI showed no acute findings but significant white matter disease and atrophy. My suspicion is that this is a toxic/metabolic/infectious encephalopathy on a patient with significant chronic brain atrophy, . Ertapenem could be contributing as well as the opioids she is taking; she also has mulitple lab abnormalities that could push her over the edge. Plan -- recommend routine EEG looking for triphasic waves, which are a sign of transient encephalopathy -- limit opioids as tolerated -- transition from ertapenem when able Telehealth Consultation Telehealth Information Telehealth Information: I performed this visit using a real-time telehealth connection between my location and the patients location ([facility]). After connecting through interactive tele-video, patient was identified by name and date of and/or wristband check.Patient (or authorized healthcare district sales representative) was informed that this was a telemedicine visit and it was being conducted confidentially over secure lines. My office door was closed and no one else was present in the room with me.Patient (or authorized healthcare district sales representative) provided consent to proceed with the visit, expressed an understanding of privacy and security of the telemedicine visit, and gave permission to have a hospital district sales representative in the room in order to assist with the visit and to conduct portions of the visit, as needed. I informed the patient (or authorized healthcare district sales representative) that I reviewed their record and presented the opportunity for them to ask any questions regarding the visit today. The patient agreed to participate. History of Present Illness Reason for Consultation: encephalopathy Attending Physician: Jer Smith MD History of Present Illness Ann Portillo is a 78F with a PMH of alcohol abuse, cirrhosis, who initially presented after a fall. Family reports that prior to coming into the hospital she was relatively independent around the house, but hadn't walked outside of her house in years. She lives with a grand daughter who reports that after her she started drinking heavily. The patient can provide no additional history. Allergies Allergy/AdvReac Type Severity Reaction Status Date / Time Penicillins Allergy Severe UNKNOWN Verified 03/16/24 10:27 aspirin Allergy Intermediate HIVES Verified 03/16/24 10:27 Home Medications Medication Instructions Recorded Confirmed Type atenolol 25 mg tablet 25 mg PO QAM 07/14/20 03/16/24 History [id number]-ryytekyporcaq 25 30 ml PO Q4 PRN Cold Symptoms 07/14/20 03/16/24 History mg-10 mg-650 mg/30 mL oral liquid multivitamin with minerals-folic 1 tab PO DAILY ##0 07/14/20 03/16/24 History acid 80 mcg chewable tablet warfarin 1 mg tablet 1 mg PO DAILY 03/16/24 03/16/24 History Patient History Medical History Portal vein thrombosis Alcoholic cirrhosis Anemia 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 Multiple rib fractures Depression Anticoagulated on Coumadin Hypertension Surgical History No pertinent past surgical history Social History Smoking Status: Never smoker Hx Alcohol Use: Yes Alcohol type: wine Hx Substance Use: No Preferred Language: Azeri Communication Ability: Effective Crate Maker Required: No Beliefs That Will Affect Care: None Current Living Situation: Family Feels Safe at Home: Yes Safety Concerns: Feels Safe At This Time Assistive Devices: Cane and Walker Review of Systems unable to obtain secondary to mental status Physical Exam Awake and alert, unable/unwilling to open eyes, orientated to person, place but not time. Moves all extremites to command and holds them antigravity, sensation intact - intermittent myoclonus Results & Data Vital Signs (Past 12 Hours) Vital Signs Temp Pulse Pulse Resp BP BP Pulse Ox 03/29/24 11:36 88 18 142/85 H 96 03/29/24 07:49 36.9 C 88 16 139/81 95 03/29/24 07:00 81 03/29/24 03:02 36.7 C 89 18 120/73 97 O2 Del Method 03/29/24 11:36 Room Air 03/29/24 07:49 Room Air 03/29/24 07:00 03/29/24 03:02 Room Air Laboratory Results Abnormal Lab Results 03/29/24 11:00 WBC 16.71 H RBC 2.01 L Hgb 7.3 L Hct 22.4 L MCV 111.4 H MCH 36.3 H MCHC 32.6 RDW Std Deviation 77.3 H RDW Coeff of Martinez 19.7 H Plt Count 60 L MPV 12.8 H PT 45.5 H INR 4.8 H Sodium 143 Potassium 3.9 Chloride 113 H Carbon Dioxide 25 Anion Gap 5 BUN 33 H Creatinine 0.91 Est Cr Clr Drug Dosing 58.1 Est GFR ( Amer) 71.0 Est GFR (Non-Af Amer) 61.3 BUN/Creatinine Ratio 36.3 H Glucose 82 Calcium 8.9 Magnesium 1.6 L Total Bilirubin 13.4 H AST 96 H ALT 9 Alkaline Phosphatase 122 H Total Protein 5.3 L Albumin 1.9 L Globulin 3.4 Albumin/Globulin Ratio 0.6 L TSH 1.821 Diagnostic Findings Chest X-Ray 03/28/24 14:44 XR chest 1V portable HISTORY: Altered Mental Status COMPARISON: Chest CT 03/16/2024. FINDINGS: There are low lung volumes. No pneumothorax. No pleural effusions. The heart is mildly enlarged. Trace bilateral pleural effusions are again noted. Bibasilar densities favor dependent changes. The upper lung zones are clear. Mild central pulmonary vascular congestion without overt edema. No acute fractures. IMPRESSION: Cardiomegaly with mild congestive change and trace bilateral pleural effusions. ACT 112: Negative or not required by law. Electronically signed by: Dl Bey M.D. 03/28/2024 3:[address] 03/28/24 14:45 CT OF THE HEAD WITHOUT CONTRAST CLINICAL HISTORY: Altered mental status. COMPARISON STUDY: Head CT and MRI of the brain March 19, 2024. CT DOSE: 547.75 mGy.cm TECHNIQUE: Helical axial images of the head were obtained without IV contrast. Automated exposure control was utilized for the study. A dose lowering technique was utilized adhering to the principles of ALARA. FINDINGS: No acute intracranial hemorrhage, midline shift or mass effect is present. The ventricular system is stable. White matter hypodensities are unchanged and favor small vessel disease. The basal cisterns are patent. No extra-axial collections are present. There are no findings to suggest acute dural sinus thrombosis or acute territorial infarct. No significant calvarial abnormalities are present. Visualized portions of the sinuses and mastoid air cells are clear. 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 IMPRESSION: No acute intracranial findings. No change in appearance of the brain. ACT 112: Negative or not required by law. Electronically signed by: Gilse Brown M.D. 03/28/2024 4:15 PM Abdomen Ultrasound 03/28/24 14:48 abdomen ltd ascites HISTORY: 78 years-old Female ascites COMPARISON: CT abdomen and pelvis 03/16/2024 TECHNIQUE: Multiple real-time sonographic images of the abdomen were obtained assessing grayscale appearance FINDINGS/IMPRESSION: No ascites identified on today's study. ACT 112: Negative or not required by law. The above report was generated using voice recognition software. It may contain grammatical, syntax or spelling errors. Electronically signed by: Johny Fischer M.D. 03/29/2024 7:14 AM
[2024-03-29] MEDS: SODIUM CHLORIDE 0.9% 500 ML IV ONE (14:46)
--- NOTE | 2024-03-29 14:57 | Hospitalist Progress Note ---
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 She was found by her granddaughter incontinent of stool and urine on the day of presentation. She is being managed for the following: Severe Sepsis POA Secondary to UTI Lactate levels trended down UTI Klebsiella bacteremia H/O ESBL --MRCP:Cholelithiasis without cholecystitis or common bile duct stone. Cirrhosis. --Blood cultures grew Klebsiella -- Repeat blood culture negative -- Urine culture grew E. coli -- Repeat urine culture 3 types of organisms -- Received ertapenem>> transition to cefazolin--completed 7-day antibiotic course -- Appreciate ID input Given persistent encephalopathy, restarted on empiric ertapenem Follow-up repeat cultures No ascites on ultrasound Will titrate/discontinue antibiotics likely tomorrow if cultures remain negative Acute metabolic encephalopathy: Likely multifactorial Fall Patient presenting from home after being found by her family confused and incontinent of stool and urine. Seems like patient was likely down for about 2 days. In the ED, found to have T11-L1 compression fractures and left 2nd through 4th metatarsal fractures Admitting imaging: CTAP: age-indeterminate mild superior endplate compression deformities from T11-L1. Cirrhotic liver noted. Cholelithiasis, no GB wall thickening. Punctate nonobstructing stone within the cystic duct/proximal CBD. C-spine CT/head CT/Face CT:: No acute fracture T-spine CT/L-spine CT/Chest CT: T11-L1 fracture as above. Left foot x-ray: Mildly angulated transverse fracture at the necks of the 2nd through 4th metatarsals MRI Brain on 03/19- no acute abnormality reported MRI thoracic spine- no acute findings MRI lumbar spine- no evidence of fracture; refer to report for additional details. --Echo: EF 60 to 65%, mild concentric LVH, left ventricular systolic function normal. --Normal TSH Fall precautions Appreciate orthopedics input: Postop shoe, can weight-bear as tolerated. No surgical intervention. No brace needed for vertebral fractures. PT OT as able Alcoholic cirrhosis: Alcohol use disorder Likely hepatic encephalopathy due to cirrhosis Possible Wernicke's encephalopathy --Last EGD 2012 - no esophageal or gastric varices, mild portal gastropathy. Admitting LFT elevated --Recommend patient cease all alcohol use. Low-sodium diet. Avoid hepatotoxic's. --Avoid hepatotoxic agents as able Started on IV thiamine Reorient frequently to minimize any delirium Continue lactulose to have 3-4 good bowel movements per day Also started on rifaximin Needs outpatient EGD, colonoscopy Needs follow-up with hepatology as outpatient Monitor LFTs Appreciate neurology input Check EEG LFTs continue to worsen Updated patient's family on multiple occasions Hypernatremia Sodium levels improved to 143 IV fluids as needed Monitor volume status, sodium levels Hypomagnesemia Replete and monitor Demand ischemia: trop mildly elevated Likely demand ischemia 2/2 acute illness. Portal vein thrombosis: Coumadin on hold Elevated INR:4.8 today Compression fracture of body of thoracic vertebra: Compression fracture of lumbar vertebra: CT shows compression fractures T11-L1 MRI thoracic and lumbar above Orthopedic spine evaluated, no brace, She should lift no more than 5 pounds. C/w pain Mx. P/OT. Metatarsal fracture: Left foot XR shows: Mildly angulated transverse fractures at the necks of the second through fourth metatarsals. Ortho evaled, no sx Ix, recommends post op shoe for weight bearing x 1 month. no f/u needed per ortho. --Management as above Acute on chronic anemia Hemoglobin dropped partly dilutional due to IV fluids No obvious bleeding issues Monitor CBC DVT Px: Elevated INR Hold Coumadin Code Status DNI/DNR Disposition To be determined Admission and Anticipated Discharge Date Admission Date: March 16, 2024 Subjective Patient is seen and examined at bedside Will need drowsy during my encounter today Discussed with patient's family at bedside Unable to obtain much history LFTs continues to worsen Oral intake remains poor Poor urinary output Noted drop in hemoglobin, no obvious source of bleeding Review of Systems Review of Systems: Other Physical Exam Physical Exam: Physical Exam: Vitals signs as noted above General Appearance:Obese, Ill appearing Head: normocephalic, Atraumatic Eyes: normal inspection, EOMI, +Icteric Neck: supple, Trachea midline Respiratory/Chest: Normal breath sounds, CTA, No accessory muscle use Cardiovascular: S1, S2, No murmur Abdomen/GI:Soft, Non tender, +Protuberant, Bowel sounds present Extremities/Musculoskeletal:normal inspection, Left Foot Ecchymosis, 2+ edema Neurologic/Psych:confused, grossly no focal neurological deficits , lethargic Skin: normal color, warm,+Jaundice, + Multiple Ecchymosis Results & Data Results & Data Vital Signs (Past 12 Hours) Vital Signs Temp Pulse Pulse Resp BP BP Pulse Ox 03/29/24 11:36 88 18 142/85 H 96 03/29/24 07:49 36.9 C 88 16 139/81 95 03/29/24 07:00 81 03/29/24 03:02 36.7 C 89 18 120/73 97 O2 Del Method 03/29/24 11:36 Room Air 03/29/24 07:49 Room Air 03/29/24 07:00 03/29/24 03:02 Room Air Laboratory Results Short CBC 03/29/24 Range/Units 11:00 WBC 16.71 H (4.8-10.8) K/ul Hgb 7.3 L (12.0-16.0) g/dl Hct 22.4 L (37.0-47.0) % Plt Count 60 L (130-400) K/uL BMP 03/29/24 11:00 Sodium 143 Potassium 3.9 Chloride 113 H Carbon Dioxide 25 BUN 33 H Creatinine 0.91 Glucose 82 Calcium 8.9 Liver Function 03/29/24 Range/Units 11:00 Total Bilirubin 13.4 H (0.2-1.0) mg/dl AST 96 H (13-39) U/L ALT 9 (7-52) U/L Alkaline Phosphatase 122 H (34-104) U/L Albumin 1.9 L (3.4-5.0) gm/dl
[2024-03-30 07:59] LABS: Hematocrit (blood only) 24.8 % (37.0-47.0); Mean Corpuscular Hgb Conc 32.3 g/dL (32.0-36.0); Mean Corpuscular Volume 114.8 fL (80.0-100.0); Mean Platelet Volume 12.8 fL (9.4-12.4); Nucleated RBC # (auto) 0.02 K/uL (0.00-0.12); Nucleated RBC % (auto) 0.1 %; Platelet Count 64 K/uL (130-400); RDW Coefficient of Variation 19.9 % (11.5-14.5); RDW Standard Deviation 81.9 fL (36.4-46.3); Red Blood Count 2.16 M/uL (4.20-5.40); White Blood Count 14.97 K/ul (4.8-10.8)
[2024-03-30 08:16] LABS: Albumin Globulin Ratio 0.6 (0.9-2); BUN Creatinine Ratio 35.1 (10-20); Bilirubin,Total 13.2 mg/dl (0.2-1.0); Calcium 8.9 mg/dl (8.6-10.3); Creatinine Clr Calc Pharmacy 54.3 ml/min; Est GFR (African American) 65.8 ml/min; Est GFR (Non-African American) 56.7 ml/min; Globulin 3.5 gm/dl (2.5-4.0); Potassium 3.8 mmol/L (3.5-5.1); Total Protein 5.5 gm/dl (6.0-8.3)
[2024-03-30 08:19] LABS: INR 4.5 (0.9-1.1); Prothrombin Time 42.5 Seconds (9.0-12.0)
--- NOTE | 2024-03-30 14:46 | Hospitalist Progress Note ---
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 She was found by her granddaughter incontinent of stool and urine on the day of presentation. She is being managed for the following: Severe Sepsis POA Secondary to UTI Lactate levels trended down UTI Klebsiella bacteremia H/O ESBL --MRCP:Cholelithiasis without cholecystitis or common bile duct stone. Cirrhosis. --Blood cultures grew Klebsiella -- Repeat blood culture negative -- Urine culture grew E. coli -- Repeat urine culture 3 types of organisms -- Received ertapenem>> transition to cefazolin--completed 7-day antibiotic course -- Appreciate ID input Given persistent encephalopathy, restarted on empiric ertapenem -- Repeat blood cultures remain negative No ascites on ultrasound Will likely discontinue antibiotics after dose today as no clear source of infection Acute metabolic encephalopathy: Likely multifactorial Fall Patient presenting from home after being found by her family confused and incontinent of stool and urine. Seems like patient was likely down for about 2 days. In the ED, found to have T11-L1 compression fractures and left 2nd through 4th metatarsal fractures Admitting imaging: CTAP: age-indeterminate mild superior endplate compression deformities from T11-L1. Cirrhotic liver noted. Cholelithiasis, no GB wall thickening. Punctate nonobstructing stone within the cystic duct/proximal CBD. C-spine CT/head CT/Face CT:: No acute fracture T-spine CT/L-spine CT/Chest CT: T11-L1 fracture as above. Left foot x-ray: Mildly angulated transverse fracture at the necks of the 2nd through 4th metatarsals MRI Brain on 03/19- no acute abnormality reported MRI thoracic spine- no acute findings MRI lumbar spine- no evidence of fracture; refer to report for additional details. --Echo: EF 60 to 65%, mild concentric LVH, left ventricular systolic function normal. --Normal TSH Fall precautions Appreciate orthopedics input: Postop shoe, can weight-bear as tolerated. No surgical intervention. No brace needed for vertebral fractures. PT OT as able EEG pending Appreciate neurology input Reorient frequently to minimize delirium No significant mental status improvement today Alcoholic cirrhosis: Alcohol use disorder Likely hepatic encephalopathy due to cirrhosis Possible Wernicke's encephalopathy --Last EGD 2012 - no esophageal or gastric varices, mild portal gastropathy. Admitting LFT elevated --Recommend patient cease all alcohol use. Low-sodium diet. Avoid hepatotoxic's. --Avoid hepatotoxic agents as able Started on IV thiamine Reorient frequently to minimize any delirium Continue lactulose to have 3-4 good bowel movements per day Also started on rifaximin Needs outpatient EGD, colonoscopy Needs follow-up with hepatology as outpatient Monitor LFTs LFTs continue to worsen Updated patient's family on multiple occasions GI following Hypernatremia Sodium levels improved to 142 IV fluids as needed Monitor volume status, sodium levels Hypomagnesemia Replete and monitor Demand ischemia: trop mildly elevated Likely demand ischemia 2/2 acute illness. Portal vein thrombosis: Coumadin on hold Elevated INR:4.5 today Compression fracture of body of thoracic vertebra: Compression fracture of lumbar vertebra: CT shows compression fractures T11-L1 MRI thoracic and lumbar above Orthopedic spine evaluated, no brace, She should lift no more than 5 pounds. C/w pain Mx. P/OT. Metatarsal fracture: Left foot XR shows: Mildly angulated transverse fractures at the necks of the second through fourth metatarsals. Ortho evaled, no sx Ix, recommends post op shoe for weight bearing x 1 month. no f/u needed per ortho. --Management as above Acute on chronic anemia Hemoglobin dropped partly dilutional due to IV fluids No obvious bleeding issues Monitor CBC DVT Px: Elevated INR Hold Coumadin Code Status DNI/DNR Disposition To be determined Admission and Anticipated Discharge Date Admission Date: March 16, 2024 Subjective Patient is seen and examined at bedside Still lethargic, but able to follow simple commands during my encounter this morning Had nausea associated with vomiting while taking pills today per RN Marcial historian Hemoglobin stable Leukocytosis trending down Blood cultures remain negative Review of Systems Review of Systems: All systems reviewed & are unremarkable except as noted in Subjective Physical Exam Physical Exam: Physical Exam: Vitals signs as noted above General Appearance:Obese, Ill appearing Head: normocephalic, Atraumatic Eyes: normal inspection, EOMI, +Icteric Neck: supple, Trachea midline Respiratory/Chest: Normal breath sounds, CTA, No accessory muscle use Cardiovascular: S1, S2, No murmur Abdomen/GI:Soft, Non tender, +Protuberant, Bowel sounds present Extremities/Musculoskeletal:normal inspection, Left Foot Ecchymosis, 2+ edema Neurologic/Psych:confused, grossly no focal neurological deficits , lethargic Skin: normal color, warm,+Jaundice, + Multiple Ecchymosis Results & Data Results & Data Vital Signs (Past 12 Hours) Vital Signs Temp Pulse Pulse Resp BP BP Pulse Ox 03/30/24 11:49 91 H 128/79 92 03/30/24 07:30 73 03/30/24 07:30 36.4 C L 71 16 137/83 98 03/30/24 02:53 36.7 C 90 16 130/70 96 O2 Del Method 03/30/24 11:49 Room Air 03/30/24 07:30 03/30/24 07:30 Room Air 03/30/24 02:53 Room Air
[2024-03-31 08:14] LABS: Hemoglobin 7.2 g/dl (12.0-16.0); Mean Corpuscular Hemoglobin 35.8 pg (25.0-34.0); Mean Corpuscular Hgb Conc 31.3 g/dL (32.0-36.0); Mean Corpuscular Volume 114.4 fL (80.0-100.0); Mean Platelet Volume 12.9 fL (9.4-12.4); Nucleated RBC # (auto) 0.03 K/uL (0.00-0.12); Nucleated RBC % (auto) 0.3 %; Platelet Count 69 K/uL (130-400); RDW Standard Deviation 80.1 fL (36.4-46.3); Red Blood Count 2.01 M/uL (4.20-5.40); White Blood Count 11.12 K/ul (4.8-10.8)
[2024-03-31 08:31] LABS: Potassium 3.8 mmol/L (3.5-5.1)
[2024-03-31 08:32] LABS: Albumin Globulin Ratio 0.5 (0.9-2); Albumin Level 1.8 gm/dl (3.4-5.0); BUN Creatinine Ratio 38.4 (10-20); Bilirubin,Total 11.9 mg/dl (0.2-1.0); Calcium 8.9 mg/dl (8.6-10.3); Creatinine Clr Calc Pharmacy 53.1 ml/min; Est GFR (African American) 64.2 ml/min; Est GFR (Non-African American) 55.4 ml/min; Globulin 3.5 gm/dl (2.5-4.0); Magnesium 1.8 mg/dl (1.7-2.4); Total Protein 5.3 gm/dl (6.0-8.3)
[2024-03-31 08:39] LABS: INR 4.2 (0.9-1.1); Prothrombin Time 40.3 Seconds (9.0-12.0)
--- NOTE | 2024-03-31 16:02 | Hospitalist Progress Note ---
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 She was found by her granddaughter incontinent of stool and urine on the day of presentation. She is being managed for the following: Severe Sepsis POA Secondary to UTI Lactate levels trended down UTI Klebsiella bacteremia H/O ESBL --MRCP:Cholelithiasis without cholecystitis or common bile duct stone. Cirrhosis. --Blood cultures grew Klebsiella -- Repeat blood culture negative -- Urine culture grew E. coli -- Repeat urine culture 3 types of organisms -- Received ertapenem>> transition to cefazolin--completed 7-day antibiotic course -- Appreciate ID input Given persistent encephalopathy, restarted on empiric ertapenem -- Repeat blood cultures negative to date No ascites on ultrasound IV antibiotics discontinued Monitor off antibiotics Acute metabolic encephalopathy: Likely multifactorial Fall Patient presenting from home after being found by her family confused and incontinent of stool and urine. Seems like patient was likely down for about 2 days. In the ED, found to have T11-L1 compression fractures and left 2nd through 4th metatarsal fractures Admitting imaging: CTAP: age-indeterminate mild superior endplate compression deformities from T11-L1. Cirrhotic liver noted. Cholelithiasis, no GB wall thickening. Punctate nonobstructing stone within the cystic duct/proximal CBD. C-spine CT/head CT/Face CT:: No acute fracture T-spine CT/L-spine CT/Chest CT: T11-L1 fracture as above. Left foot x-ray: Mildly angulated transverse fracture at the necks of the 2nd through 4th metatarsals MRI Brain on 03/19- no acute abnormality reported MRI thoracic spine- no acute findings MRI lumbar spine- no evidence of fracture; refer to report for additional details. --Echo: EF 60 to 65%, mild concentric LVH, left ventricular systolic function normal. --Normal TSH Fall precautions Appreciate orthopedics input: Postop shoe, can weight-bear as tolerated. No surgical intervention. No brace needed for vertebral fractures. PT OT as able EEG pending Appreciate neurology input Reorient frequently to minimize delirium Alcoholic cirrhosis: Alcohol use disorder Likely hepatic encephalopathy due to cirrhosis Possible Wernicke's encephalopathy --Last EGD 2012 - no esophageal or gastric varices, mild portal gastropathy. Admitting LFT elevated --Recommend patient cease all alcohol use. Low-sodium diet. Avoid hepatotoxic's. --Avoid hepatotoxic agents as able Started on IV thiamine Reorient frequently to minimize any delirium Continue lactulose to have 3-4 good bowel movements per day Also started on rifaximin Needs outpatient EGD, colonoscopy Needs follow-up with hepatology as outpatient Monitor LFTs Updated patient's family on multiple occasions GI following LFTs slightly better today Hypernatremia Sodium levels improved to 145 IV fluids as needed Monitor volume status, sodium levels Hypomagnesemia Replete and monitor Demand ischemia: trop mildly elevated Likely demand ischemia 2/2 acute illness. Portal vein thrombosis: Coumadin on hold Elevated INR:4.2 today Compression fracture of body of thoracic vertebra: Compression fracture of lumbar vertebra: CT shows compression fractures T11-L1 MRI thoracic and lumbar above Orthopedic spine evaluated, no brace, She should lift no more than 5 pounds. C/w pain Mx. P/OT. Metatarsal fracture: Left foot XR shows: Mildly angulated transverse fractures at the necks of the second through fourth metatarsals. Ortho evaled, no sx Ix, recommends post op shoe for weight bearing x 1 month. no f/u needed per ortho. --Management as above Acute on chronic anemia Hemoglobin dropped partly dilutional due to IV fluids No obvious bleeding issues Monitor CBC DVT Px: Elevated INR Hold Coumadin Code Status DNI/DNR Disposition To be determined Admission and Anticipated Discharge Date Admission Date: March 16, 2024 Subjective Patient is seen and examined at bedside Clinically no significant change compared to yesterday Had speech therapy eval today Poor historian secondary to altered mental status No distress on exam Bilirubin slightly better No obvious source of bleeding issues Leukocytosis improving Review of Systems Review of Systems: All systems reviewed & are unremarkable except as noted in Subjective Physical Exam Physical Exam: Physical Exam: Vitals signs as noted above General Appearance:Obese, Ill appearing Head: normocephalic, Atraumatic Eyes: normal inspection, EOMI, +Icteric Neck: supple, Trachea midline Respiratory/Chest: Normal breath sounds, CTA, No accessory muscle use Cardiovascular: S1, S2, No murmur Abdomen/GI:Soft, Non tender, +Protuberant, Bowel sounds present Extremities/Musculoskeletal:normal inspection, Left Foot Ecchymosis, 2+ edema Neurologic/Psych:confused, grossly no focal neurological deficits , lethargic Skin: normal color, warm,+Jaundice, + Multiple Ecchymosis Results & Data Results & Data Vital Signs (Past 12 Hours) Vital Signs Temp Pulse Pulse Resp BP Pulse Ox O2 Del Method 03/31/24 14:22 70 03/31/24 11:45 36.6 C 69 17 109/51 L 94 Room Air 03/31/24 08:25 36.4 C L 68 19 120/57 L 91 Room Air 03/31/24 08:00 Room Air 03/31/24 07:00 73 Laboratory Results Short CBC 03/31/24 Range/Units 07:59 WBC 11.12 H (4.8-10.8) K/ul Hgb 7.2 L (12.0-16.0) g/dl Hct 23.0 L (37.0-47.0) % Plt Count 69 L (130-400) K/uL BMP 03/31/24 07:59 Sodium 145 Potassium 3.8 Chloride 115 H Carbon Dioxide 24 BUN 38 H Creatinine 0.99 Glucose 103 H Calcium 8.9 Liver Function 03/31/24 Range/Units 07:59 Total Bilirubin 11.9 H (0.2-1.0) mg/dl AST 100 H (13-39) U/L ALT 16 (7-52) U/L Alkaline Phosphatase 133 H (34-104) U/L Albumin 1.8 L (3.4-5.0) gm/dl
[2024-03-31] MEDS: ALBUMIN 25% 25 GM/100 ML VIAL IV ONE (23:33)
[2024-04-01 06:49] LABS: Hematocrit (blood only) 22.8 % (37.0-47.0); Hemoglobin 7.1 g/dl (12.0-16.0); Mean Corpuscular Hemoglobin 36.2 pg (25.0-34.0); Mean Corpuscular Hgb Conc 31.1 g/dL (32.0-36.0); Mean Corpuscular Volume 116.3 fL (80.0-100.0); Mean Platelet Volume 12.5 fL (9.4-12.4); Nucleated RBC # (auto) 0.04 K/uL (0.00-0.12); Nucleated RBC % (auto) 0.5 %; Platelet Count 64 K/uL (130-400); RDW Coefficient of Variation 20.5 % (11.5-14.5); RDW Standard Deviation 83.8 fL (36.4-46.3); Red Blood Count 1.96 M/uL (4.20-5.40); White Blood Count 8.45 K/ul (4.8-10.8)
[2024-04-01 07:05] LABS: Albumin Globulin Ratio 0.7 (0.9-2); Albumin Level 2.3 gm/dl (3.4-5.0); BUN Creatinine Ratio 37.6 (10-20); Bilirubin,Total 13.4 mg/dl (0.2-1.0); Calcium 9.2 mg/dl (8.6-10.3); Creatinine Clr Calc Pharmacy 52.8 ml/min; Est GFR (African American) 62.6 ml/min; Globulin 3.2 gm/dl (2.5-4.0); Magnesium 1.9 mg/dl (1.7-2.4); Potassium 3.5 mmol/L (3.5-5.1); Total Protein 5.5 gm/dl (6.0-8.3)
[2024-04-01 07:15] LABS: INR 3.8 (0.9-1.1)
--- NOTE | 2024-04-01 10:48 | Electroencephalogram ---
EEG Procedure Note Date of Service March 30, 2024 Start / End Times Start Time: 1102 End Time: [address] Jer Smith History A 78 year old female wiht altered mental status. EEG performed for evaluation of epileptiform activity. Home Medication List Medication Instructions Recorded Confirmed Type atenolol 25 mg tablet 25 mg PO QAM 07/14/20 03/16/24 History ogileoybh-QA-cbtvcxiglreeu 25 30 ml PO Q4 PRN Cold Symptoms 07/14/20 03/16/24 History mg-10 mg-650 mg/30 mL oral liquid multivitamin with minerals-folic 1 tab PO DAILY ##0 07/14/20 03/16/24 History acid 80 mcg chewable tablet warfarin 1 mg tablet 1 mg PO DAILY 03/16/24 03/16/24 History Inpatient Medication List Acetaminophen (Acetaminophen 325 Mg Tab) 650 mg PO Q4H PRN PRN Reason: Pain or Fever Stop: 04/15/24 11:39 Last Admin: 03/27/24 20:28 Dose: 650 mg Documented By: Admin: 03/20/24 22:55 Dose: 650 mg Documented By: Admin: 03/20/24 04:48 Dose: 650 mg Documented By: Admin: 03/19/24 11:14 Dose: 650 mg Documented By: Admin: 03/17/24 00:28 Dose: 650 mg Documented By: ELBA Atenolol (Atenolol 25 Mg Tablet) 25 mg PO QAM [facility] Stop: 04/16/24 08:59 Last Admin: 04/01/24 09:46 Dose: 25 mg Documented By: Admin: 03/31/24 08:40 Dose: Not Given Documented By: Admin: 03/30/24 07:48 Dose: 25 mg Documented By: Admin: 03/29/24 08:12 Dose: 25 mg Documented By: Admin: 03/28/24 11:51 Dose: Not Given Documented By: Admin: 03/27/24 08:05 Dose: 25 mg Documented By: Admin: 03/26/24 08:56 Dose: 25 mg Documented By: Admin: 03/25/24 08:51 Dose: 25 mg Documented By: Admin: 03/24/24 08:50 Dose: 25 mg Documented By: Admin: 03/23/24 10:38 Dose: 25 mg Documented By: Admin: 03/22/24 09:00 Dose: 25 mg Documented By: Admin: 03/21/24 07:58 Dose: 25 mg Documented By: Admin: 03/20/24 07:56 Dose: 25 mg Documented By: Admin: 03/19/24 12:02 Dose: Not Given Documented By: Admin: 03/18/24 07:33 Dose: 25 mg Documented By: Admin: 03/17/24 10:07 Dose: 25 mg Documented By: DTT Folic Acid (Folic Acid 1 Mg Tab) 1 mg PO QAM MIN Stop: 04/16/24 08:59 Last Admin: 04/01/24 09:46 Dose: 1 mg Documented By: Admin: 03/31/24 08:40 Dose: Not Given Documented By: Admin: 03/30/24 07:48 Dose: 1 mg Documented By: Admin: 03/29/24 08:11 Dose: 1 mg Documented By: Admin: 03/28/24 11:51 Dose: Not Given Documented By: Admin: 03/27/24 08:05 Dose: 1 mg Documented By: Admin: 03/26/24 08:56 Dose: 1 mg Documented By: Admin: 03/25/24 08:51 Dose: 1 mg Documented By: Admin: 03/24/24 08:50 Dose: 1 mg Documented By: Admin: 03/23/24 10:37 Dose: 1 mg Documented By: Admin: 03/22/24 09:00 Dose: 1 mg Documented By: Admin: 03/21/24 07:57 Dose: 1 mg Documented By: Admin: 03/20/24 07:56 Dose: 1 mg Documented By: Admin: 03/19/24 12:02 Dose: Not Given Documented By: Admin: 03/18/24 07:33 Dose: 1 mg Documented By: Admin: 03/17/24 10:07 Dose: 1 mg Documented By: DTT Thiamine HCl 200 mg/ Sodium (Chloride) 52 mls @ 210 mls/hr IV TID MIN Stop: 04/04/24 16:59 Last Admin: 04/01/24 10:20 Dose: 210 mls/hr Documented By: Infusion: 03/31/24 21:51 Dose: Infused Documented By: Admin: 03/31/24 21:19 Dose: 210 mls/hr Documented By: Infusion: 03/31/24 15:48 Dose: Infused Documented By: Admin: 03/31/24 15:27 Dose: 210 mls/hr Documented By: Infusion: 03/31/24 09:00 Dose: Infused Documented By: Admin: 03/31/24 08:42 Dose: 210 mls/hr Documented By: Infusion: 03/30/24 21:43 Dose: Infused Documented By: Admin: 03/30/24 21:23 Dose: 210 mls/hr Documented By: Infusion: 03/30/24 14:00 Dose: Infused Documented By: Admin: 03/30/24 13:24 Dose: 210 mls/hr Documented By: Infusion: 03/30/24 08:19 Dose: Infused Documented By: Admin: 03/30/24 07:36 Dose: 210 mls/hr Documented By: Infusion: 03/29/24 20:54 Dose: Infused Documented By: Admin: 03/29/24 20:25 Dose: 210 mls/hr Documented By: Infusion: 03/29/24 13:51 Dose: Infused Documented By: Admin: 03/29/24 13:20 Dose: 210 mls/hr Documented By: Infusion: 03/29/24 08:24 Dose: Infused Documented By: Admin: 03/29/24 08:05 Dose: 210 mls/hr Documented By: Infusion: 03/28/24 22:40 Dose: Infused Documented By: Admin: 03/28/24 22:19 Dose: 210 mls/hr Documented By: Infusion: 03/28/24 18:23 Dose: Infused Documented By: Admin: 03/28/24 18:06 Dose: 210 mls/hr Documented By: AM Lactulose (Lactulose Syrup 20 Gm/30 Ml Udc) 20 gm PO TID MIN Stop: 04/18/24 20:59 Last Admin: 04/01/24 09:48 Dose: 20 gm Documented By: Admin: 03/31/24 21:31 Dose: 20 gm Documented By: Admin: 03/31/24 15:27 Dose: Not Given Documented By: Admin: 03/31/24 08:40 Dose: Not Given Documented By: Admin: 03/30/24 21:52 Dose: Not Given Documented By: Admin: 03/30/24 13:28 Dose: 20 gm Documented By: Admin: 03/30/24 07:47 Dose: 20 gm Documented By: Admin: 03/29/24 20:59 Dose: Not Given Documented By: Admin: 03/29/24 13:54 Dose: 20 gm Documented By: Admin: 03/29/24 08:13 Dose: 20 gm Documented By: Admin: 03/28/24 20:38 Dose: Not Given Documented By: Admin: 03/28/24 14:53 Dose: Not Given Documented By: Admin: 03/28/24 11:51 Dose: Not Given Documented By: Admin: 03/27/24 20:30 Dose: 20 gm Documented By: Admin: 03/27/24 17:36 Dose: 20 gm Documented By: Admin: 03/27/24 15:58 Dose: Not Given Documented By: Admin: 03/27/24 08:05 Dose: 20 gm Documented By: Admin: 03/26/24 21:52 Dose: 20 gm Documented By: Admin: 03/26/24 14:52 Dose: 20 gm Documented By: Admin: 03/26/24 08:56 Dose: 20 gm Documented By: Admin: 03/25/24 22:04 Dose: Not Given Documented By: Admin: 03/25/24 16:25 Dose: Not Given Documented By: Admin: 03/25/24 08:51 Dose: 20 gm Documented By: Admin: 03/24/24 20:07 Dose: 20 gm Documented By: Admin: 03/24/24 14:58 Dose: 20 gm Documented By: Admin: 03/24/24 08:50 Dose: 20 gm Documented By: Admin: 03/23/24 21:03 Dose: 20 gm Documented By: Admin: 03/23/24 14:26 Dose: 20 gm Documented By: Admin: 03/23/24 10:38 Dose: 20 gm Documented By: Admin: 03/22/24 21:11 Dose: 20 gm Documented By: Admin: 03/22/24 13:17 Dose: 20 gm Documented By: Admin: 03/20/24 07:56 Dose: 20 gm Documented By: Admin: 03/19/24 19:42 Dose: Not Given Documented By: CJC Lactulose (Lactulose 200gm/700ml Wtr Enema) 200 gm MO Q8H MIN Stop: 04/19/24 09:59 Last Admin: 04/01/24 02:49 Dose: Not Given Documented By: Admin: 03/31/24 16:55 Dose: Not Given Documented By: Admin: 03/31/24 10:15 Dose: Not Given Documented By: Admin: 03/31/24 01:10 Dose: 200 gm Documented By: Admin: 03/30/24 17:42 Dose: 200 gm Documented By: Admin: 03/30/24 10:32 Dose: Not Given Documented By: Admin: 03/30/24 02:56 Dose: Not Given Documented By: Admin: 03/29/24 17:46 Dose: Not Given Documented By: Admin: 03/29/24 10:38 Dose: Not Given Documented By: Admin: 03/29/24 01:29 Dose: Not Given Documented By: Admin: 03/28/24 18:02 Dose: Not Given Documented By: Admin: 03/28/24 14:54 Dose: Not Given Documented By: Admin: 03/28/24 01:56 Dose: Not Given Documented By: Admin: 03/27/24 18:51 Dose: Not Given Documented By: Admin: 03/27/24 11:39 Dose: Not Given Documented By: Admin: 03/27/24 02:07 Dose: Not Given Documented By: Admin: 03/26/24 16:27 Dose: Not Given Documented By: Admin: 03/26/24 08:16 Dose: Not Given Documented By: Admin: 03/26/24 01:58 Dose: Not Given Documented By: Admin: 03/25/24 17:06 Dose: Not Given Documented By: Admin: 03/25/24 09:06 Dose: Not Given Documented By: Admin: 03/25/24 00:31 Dose: Not Given Documented By: SJRob Admin: 03/24/24 18:31 Dose: Not Given Documented By: Admin: 03/24/24 09:22 Dose: Not Given Documented By: Admin: 03/24/24 02:00 Dose: Not Given Documented By: Admin: 03/23/24 18:19 Dose: Not Given Documented By: Admin: 03/23/24 10:49 Dose: Not Given Documented By: Admin: 03/23/24 01:31 Dose: Not Given Documented By: Admin: 03/22/24 17:35 Dose: Not Given Documented By: Admin: 03/22/24 13:05 Dose: Not Given Documented By: Admin: 03/22/24 02:05 Dose: Not Given Documented By: Admin: 03/21/24 17:36 Dose: Not Given Documented By: Admin: 03/21/24 11:13 Dose: 200 gm Documented By: Admin: 03/21/24 01:30 Dose: Not Given Documented By: Admin: 03/20/24 21:07 Dose: Not Given Documented By: Admin: 03/20/24 12:37 Dose: 200 gm Documented By: HARSHIL Lidocaine (Lidocaine 5% 1 Patch) [facility] [place] Stop: 04/16/24 05:34 Last Admin: 04/01/24 09:48 Dose: 1 patch Documented By: Admin: 03/31/24 08:41 Dose: 1 patch Documented By: Admin: 03/30/24 07:48 Dose: 1 patch Documented By: Admin: 03/29/24 10:02 Dose: 1 patch Documented By: Admin: 03/28/24 11:51 Dose: Not Given Documented By: Admin: 03/27/24 12:55 Dose: Not Given Documented By: Admin: 03/26/24 08:56 Dose: 1 patch Documented By: Admin: 03/25/24 08:52 Dose: 1 patch Documented By: Admin: 03/24/24 08:50 Dose: 1 patch Documented By: Admin: 03/23/24 10:38 Dose: 1 patch Documented By: Admin: 03/22/24 08:59 Dose: 1 patch Documented By: Admin: 03/21/24 07:56 Dose: 1 patch Documented By: Admin: 03/20/24 07:57 Dose: 1 patch Documented By: Admin: 03/19/24 10:53 Dose: 1 patch Documented By: Admin: 03/18/24 07:34 Dose: 1 patch Documented By: Admin: 03/17/24 06:03 Dose: 1 patch Documented By: ELBA Miscellaneous (Remove Lidoderm Patch) 1 each N/A DAILY@2100 MIN Stop: 04/16/24 17:34 Last Admin: 03/31/24 21:19 Dose: 1 each Documented By: Admin: 03/30/24 21:26 Dose: 1 each Documented By: Admin: 03/29/24 20:24 Dose: 1 each Documented By: Admin: 03/28/24 20:38 Dose: Not Given Documented By: Admin: 03/27/24 20:29 Dose: 1 each Documented By: Admin: 03/26/24 21:52 Dose: 1 each Documented By: Admin: 03/25/24 20:46 Dose: 1 each Documented By: Admin: 03/24/24 20:08 Dose: 1 each Documented By: Admin: 03/23/24 21:03 Dose: 1 each Documented By: Admin: 03/22/24 21:10 Dose: 1 each Documented By: Admin: 03/21/24 20:42 Dose: 1 each Documented By: Admin: 03/20/24 21:08 Dose: 1 each Documented By: Admin: 03/19/24 20:28 Dose: Not Given Documented By: Admin: 03/18/24 19:23 Dose: 1 each Documented By: Admin: 03/17/24 17:29 Dose: 1 each Documented By: LATA Prednisolone Acetate (Prednisolone Acetate 1% Op Susp 5 Ml Btl) 1 drops OP QID MIN Stop: 04/16/24 16:59 Last Admin: 04/01/24 09:47 Dose: 1 drops Documented By: Admin: 03/31/24 21:19 Dose: 1 drops Documented By: Admin: 03/31/24 16:54 Dose: 1 drops Documented By: Admin: 03/31/24 15:26 Dose: 1 drops Documented By: Admin: 03/31/24 08:41 Dose: 1 drops Documented By: Admin: 03/30/24 21:34 Dose: 1 drops Documented By: Admin: 03/30/24 17:42 Dose: 1 drops Documented By: Admin: 03/30/24 13:24 Dose: 1 drops Documented By: Admin: 03/30/24 07:46 Dose: 1 drops Documented By: Admin: 03/29/24 20:24 Dose: 1 drops Documented By: Admin: 03/29/24 16:19 Dose: 1 drops Documented By: Admin: 03/29/24 13:05 Dose: 1 drops Documented By: Admin: 03/29/24 10:03 Dose: 1 drops Documented By: Admin: 03/28/24 20:39 Dose: 1 drops Documented By: Admin: 03/28/24 18:02 Dose: Not Given Documented By: Admin: 03/28/24 13:33 Dose: Not Given Documented By: Admin: 03/28/24 11:52 Dose: Not Given Documented By: Admin: 03/27/24 20:29 Dose: 1 drops Documented By: Admin: 03/27/24 16:44 Dose: Not Given Documented By: Admin: 03/27/24 14:47 Dose: Not Given Documented By: Admin: 03/27/24 08:06 Dose: 1 drops Documented By: Admin: 03/26/24 21:51 Dose: 1 drops Documented By: Admin: 03/26/24 18:10 Dose: 1 drops Documented By: [facility] Admin: 03/26/24 11:33 Dose: 1 drops Documented By: [facility] Admin: 03/26/24 08:57 Dose: 1 drops Documented By: [facility] Admin: 03/25/24 20:46 Dose: 1 drops Documented By: Admin: 03/25/24 17:06 Dose: Not Given Documented By: Admin: 03/25/24 13:04 Dose: 1 drops Documented By: Admin: 03/25/24 08:52 Dose: 1 drops Documented By: Admin: 03/24/24 20:07 Dose: 1 drops Documented By: Admin: 03/24/24 16:56 Dose: 1 drops Documented By: Admin: 03/24/24 11:23 Dose: 1 drops Documented By: Admin: 03/24/24 08:50 Dose: 1 drops Documented By: Admin: 03/23/24 21:03 Dose: 1 drops Documented By: Admin: 03/23/24 18:19 Dose: Not Given Documented By: Admin: 03/23/24 14:26 Dose: 1 drops Documented By: Admin: 03/23/24 10:38 Dose: 1 drops Documented By: Admin: 03/22/24 21:11 Dose: 1 drops Documented By: Admin: 03/22/24 16:50 Dose: Not Given Documented By: Admin: 03/22/24 13:16 Dose: 1 drops Documented By: Admin: 03/22/24 08:59 Dose: 1 drops Documented By: Admin: 03/21/24 20:41 Dose: 1 drops Documented By: Admin: 03/21/24 16:53 Dose: 1 drops Documented By: Admin: 03/21/24 12:59 Dose: 1 drops Documented By: Admin: 03/21/24 07:59 Dose: 1 drops Documented By: Admin: 03/20/24 21:08 Dose: 1 drops Documented By: Admin: 03/20/24 16:31 Dose: 1 drops Documented By: Admin: 03/20/24 13:25 Dose: 1 drops Documented By: Admin: 03/20/24 07:57 Dose: 1 drops Documented By: Admin: 03/19/24 20:27 Dose: 1 drops Documented By: Admin: 03/19/24 16:57 Dose: 1 drops Documented By: Admin: 03/19/24 12:50 Dose: 1 drops Documented By: Admin: 03/19/24 10:53 Dose: 1 drops Documented By: Admin: 03/18/24 19:22 Dose: 1 drops Documented By: Admin: 03/18/24 16:32 Dose: 1 drops Documented By: Admin: 03/18/24 14:09 Dose: 1 drops Documented By: Admin: 03/18/24 07:33 Dose: 1 drops Documented By: Admin: 03/17/24 20:39 Dose: 1 drops Documented By: Admin: 03/17/24 17:28 Dose: 1 drops Documented By: DTT Rifaximin (Rifaximin 550 Mg Tablet) 550 mg PO BID MIN Stop: 04/19/24 20:59 Last Admin: 04/01/24 09:47 Dose: 550 mg Documented By: Admin: 03/31/24 21:38 Dose: Not Given Documented By: Admin: 03/31/24 08:41 Dose: Not Given Documented By: Admin: 03/30/24 21:52 Dose: Not Given Documented By: Admin: 03/30/24 07:48 Dose: 550 mg Documented By: Admin: 03/29/24 20:59 Dose: Not Given Documented By: Admin: 03/29/24 08:11 Dose: 550 mg Documented By: Admin: 03/28/24 21:29 Dose: Not Given Documented By: Admin: 03/28/24 11:52 Dose: Not Given Documented By: Admin: 03/27/24 20:28 Dose: 550 mg Documented By: Admin: 03/27/24 08:05 Dose: 550 mg Documented By: Admin: 03/26/24 21:52 Dose: 550 mg Documented By: Admin: 03/26/24 08:56 Dose: 550 mg Documented By: Admin: 03/25/24 20:47 Dose: 550 mg Documented By: Admin: 03/25/24 08:51 Dose: 550 mg Documented By: Admin: 03/24/24 20:08 Dose: 550 mg Documented By: Admin: 03/24/24 08:50 Dose: 550 mg Documented By: Admin: 03/23/24 21:03 Dose: 550 mg Documented By: Admin: 03/23/24 10:37 Dose: 550 mg Documented By: Admin: 03/22/24 21:11 Dose: 550 mg Documented By: Admin: 03/22/24 08:59 Dose: 550 mg Documented By: Admin: 03/21/24 20:43 Dose: 550 mg Documented By: Admin: 03/21/24 07:57 Dose: 550 mg Documented By: Admin: 03/20/24 21:38 Dose: 550 mg Documented By: ANY Thiamine HCl (Thiamine Hcl 100 Mg Tab) 100 mg PO QAM MIN Stop: 04/16/24 08:59 Last Admin: 03/28/24 11:52 Dose: Not Given Documented By: Admin: 03/27/24 08:06 Dose: 100 mg Documented By: Admin: 03/26/24 08:56 Dose: 100 mg Documented By: Admin: 03/25/24 08:51 Dose: 100 mg Documented By: Admin: 03/24/24 08:50 Dose: 100 mg Documented By: Admin: 03/23/24 10:39 Dose: 100 mg Documented By: Admin: 03/22/24 08:59 Dose: 100 mg Documented By: Admin: 03/21/24 07:58 Dose: 100 mg Documented By: Admin: 03/20/24 07:56 Dose: 100 mg Documented By: Admin: 03/19/24 12:02 Dose: Not Given Documented By: Admin: 03/18/24 07:33 Dose: 100 mg Documented By: Admin: 03/17/24 10:07 Dose: 100 mg Documented By: LATA Warfarin Sodium (Warfarin Sod 1 Mg Tab) 1 mg PO DAILY@1600 MIN Stop: 04/17/24 15:59 Last Admin: 03/22/24 16:50 Dose: 1 mg Documented By: Admin: 03/21/24 16:52 Dose: 1 mg Documented By: Admin: 03/20/24 16:30 Dose: 1 mg Documented By: Admin: 03/19/24 16:32 Dose: 1 mg Documented By: Admin: 03/18/24 16:32 Dose: 1 mg Documented By: DTT Discontinued Medications Hydromorphone HCl (Hydromorphone Inj 0.5 Mg/0.5 Ml Syr) 0.25 mg IV Q6H PRN PRN Reason: Pain Stop: 04/06/24 10:49 Last Admin: 03/25/24 12:58 Dose: 0.25 mg Documented By: Admin: 03/24/24 14:57 Dose: 0.25 mg Documented By: Admin: 03/24/24 09:14 Dose: 0.25 mg Documented By: Admin: 03/23/24 17:56 Dose: 0.25 mg Documented By: YOLY Sodium Chloride (Nss) 1,000 mls @ 500 mls/hr IV .Q2H ONE Stop: 03/16/24 09:15 Last Infusion: 03/16/24 10:57 Dose: Infused Documented By: Admin: 03/16/24 07:44 Dose: 500 mls/hr Documented By: KT Ertapenem 1,000 mg/ Syringe 10 mls @ 2 mls/min IV Q24H MIN Stop: 03/26/24 11:59 Last Admin: 03/18/24 11:05 Dose: 2 mls/min Documented By: Admin: 03/17/24 14:56 Dose: 2 mls/min Documented By: Admin: 03/16/24 13:18 Dose: 2 mls/min Documented By: DTT Sodium Chloride (Nss) 1,000 mls @ 80 mls/hr IV .[id number] MIN Stop: 03/17/24 12:59 Last Infusion: 03/17/24 15:36 Dose: Infused Documented By: Admin: 03/17/24 00:26 Dose: 80 mls/hr Documented By: Infusion: 03/17/24 00:26 Dose: Infused Documented By: Admin: 03/16/24 13:18 Dose: 80 mls/hr Documented By: DTT Magnesium Sulfate/Dextrose (Magnesium Sulfate / D5w) 1 gm in 100 mls @ 50 mls/hr IV Q2H MIN Stop: 03/18/24 16:14 Last Infusion: 03/18/24 18:37 Dose: Infused Documented By: Admin: 03/18/24 15:35 Dose: 50 mls/hr Documented By: Infusion: 03/18/24 15:18 Dose: Infused Documented By: Admin: 03/18/24 13:18 Dose: 50 mls/hr Documented By: DTT Potassium Phosphate 15 mmol/ (Sodium Chloride) 255 mls @ 88 mls/hr IV ONE ONE Stop: 03/18/24 15:08 Last Infusion: 03/18/24 16:33 Dose: Infused Documented By: Admin: 03/18/24 13:18 Dose: 88 mls/hr Documented By: DTT Ceftriaxone Sodium (Rocephin) 2,000 mg in 50 mls @ 100 mls/hr IV Q24H [facility] Stop: 04/02/24 09:59 Last Infusion: 03/19/24 12:38 Dose: Infused Documented By: Admin: 03/19/24 11:00 Dose: 100 mls/hr Documented By: DLR Cefazolin Sodium (Ancef 2000mg) 2,000 mg in 15 mls @ 3.75 mls/min IV Q8H MIN Stop: 03/26/24 15:59 Last Admin: 03/26/24 08:56 Dose: 3.75 mls/min Documented By: Admin: 03/25/24 23:53 Dose: 3.75 mls/min Documented By: Admin: 03/25/24 17:35 Dose: 3.75 mls/min Documented By: Admin: 03/25/24 08:51 Dose: 3.75 mls/min Documented By: Admin: 03/25/24 00:30 Dose: 3.75 mls/min Documented By: Admin: 03/24/24 16:57 Dose: 3.75 mls/min Documented By: Admin: 03/24/24 08:50 Dose: 3.75 mls/min Documented By: Admin: 03/24/24 00:28 Dose: 3.75 mls/min Documented By: Admin: 03/23/24 16:11 Dose: 3.75 mls/min Documented By: Admin: 03/23/24 07:32 Dose: 3.75 mls/min Documented By: Admin: 03/22/24 23:51 Dose: 3.75 mls/min Documented By: Admin: 03/22/24 16:49 Dose: 3.75 mls/min Documented By: Admin: 03/22/24 09:01 Dose: 3.75 mls/min Documented By: Admin: 03/22/24 00:41 Dose: 3.75 mls/min Documented By: Admin: 03/21/24 16:53 Dose: 3.75 mls/min Documented By: Admin: 03/21/24 07:58 Dose: 3.75 mls/min Documented By: Admin: 03/20/24 23:03 Dose: 3.75 mls/min Documented By: Admin: 03/20/24 16:31 Dose: 3.75 mls/min Documented By: Admin: 03/20/24 10:39 Dose: 3.75 mls/min Documented By: Admin: 03/19/24 23:35 Dose: 3.75 mls/min Documented By: Admin: 03/19/24 16:29 Dose: 3.75 mls/min Documented By: HALEIGH Dextrose (D5w) 500 mls @ 80 mls/hr IV .Q6H15M MIN Stop: 03/23/24 19:59 Last Infusion: 03/23/24 20:43 Dose: Infused Documented By: Admin: 03/23/24 14:28 Dose: 80 mls/hr Documented By: Infusion: 03/23/24 13:50 Dose: Infused Documented By: Admin: 03/23/24 07:35 Dose: 80 mls/hr Documented By: YOLY Dextrose (D5w) 1,000 mls @ 125 mls/hr IV .Q8H MIN Stop: 03/26/24 00:14 Last Infusion: 03/26/24 05:51 Dose: Infused Documented By: Admin: 03/26/24 01:51 Dose: 125 mls/hr Documented By: Infusion: 03/26/24 01:50 Dose: Infused Documented By: Admin: 03/25/24 17:35 Dose: 125 mls/hr Documented By: YOLY Lactated Ringer's (Lr) 1,000 mls @ 60 mls/hr IV .[id number] ONE Stop: 03/29/24 07:29 Last Infusion: 03/29/24 08:02 Dose: Infused Documented By: Admin: 03/28/24 15:06 Dose: 60 mls/hr Documented By: SAMIR Thiamine HCl 200 mg/ Sodium (Chloride) 52 mls @ 210 mls/hr IV QAM MIN Stop: 04/04/24 16:29 Last Admin: 03/28/24 18:15 Dose: Not Given Documented By: SAMIR Ertapenem 1,000 mg/ Syringe 10 mls @ 2 mls/min IV Q24H MIN Stop: 03/30/24 16:29 Last Admin: 03/29/24 16:33 Dose: 2 mls/min Documented By: Admin: 03/28/24 18:24 Dose: 2 mls/min Documented By: SAMIR Magnesium Sulfate/Dextrose (Magnesium Sulfate / D5w) 1 gm in 100 mls @ 50 mls/hr IV ONE ONE Stop: 03/29/24 13:51 Last Infusion: 03/29/24 15:12 Dose: Infused Documented By: Admin: 03/29/24 12:42 Dose: 50 mls/hr Documented By: Sodium Chloride (Nss) 500 mls @ 50 mls/hr IV .Q10H ONE Stop: 03/30/24 00:28 Last Infusion: 03/30/24 00:47 Dose: Infused Documented By: Admin: 03/29/24 14:46 Dose: 50 mls/hr Documented By: Albumin Human (Albumin 25%) 25 gm in 100 mls @ 50 mls/hr IV ONE ONE Stop: 04/01/24 01:19 Last Infusion: 04/01/24 01:29 Dose: Infused Documented By: KDGeetha Admin: 03/31/24 23:33 Dose: 50 mls/hr Documented By: SOBEIDA Ioversol (Optiray 320 100ml) 94 ml IV ONCE ONE Stop: 03/16/24 08:18 Last Admin: 03/16/24 08:17 Dose: 94 ml Documented By: DIANA Ketorolac Tromethamine (Ketorolac Tromethamine 15 Mg/Ml Vial) 15 mg IV NOW ONE Stop: 03/17/24 05:34 Last Admin: 03/17/24 06:03 Dose: 15 mg Documented By: ELBA Lactulose (Lactulose Syrup 20 Gm/30 Ml Udc) 20 gm PO BID MIN Stop: 04/15/24 20:59 Last Admin: 03/19/24 12:02 Dose: Not Given Documented By: Admin: 03/18/24 19:23 Dose: 20 gm Documented By: Admin: 03/18/24 09:33 Dose: Not Given Documented By: Admin: 03/17/24 20:39 Dose: Not Given Documented By: Admin: 03/17/24 11:08 Dose: 20 gm Documented By: Admin: 03/16/24 20:18 Dose: 20 gm Documented By: ELBA Lorazepam (Lorazepam 2 Mg/1 Ml Vial) 1 mg IV UD PRN; Protocol PRN Reason: EtOH Withdrawal AWSS Score 6,7 Stop: 04/15/24 12:33 Last Admin: 03/19/24 20:15 Dose: 1 mg Documented By: ANY Lorazepam (Lorazepam 0.5 Mg Tab) 0.5 mg PO NOW STA Stop: 03/18/24 10:07 Last Admin: 03/19/24 17:57 Dose: 0.5 mg Documented By: HALEIGH Lorazepam (Lorazepam 0.5 Mg Tab) 0.5 mg PO NOW PRN PRN Reason: prior to mri Stop: 04/18/24 17:29 Last Admin: 03/20/24 16:31 Dose: 0.5 mg Documented By: HARSHIL Lorazepam (Lorazepam 0.5 Mg Tab) 0.5 mg PO PRN PRN PRN Reason: Anxiety/Agitation Stop: 04/19/24 15:18 Last Admin: 03/20/24 21:28 Dose: 0.5 mg Documented By: ANY Lorazepam (Lorazepam 2 Mg/1 Ml Vial) 0.5 mg IV ONE ONE Stop: 03/21/24 00:16 Last Admin: 03/21/24 00:58 Dose: Not Given Documented By: ANY Morphine Sulfate (Morphine Sulfate 2 Mg/Ml Carp) 2 mg IV NOW STA Stop: 03/16/24 07:41 Last Admin: 03/16/24 07:43 Dose: 2 mg Documented By: MINH Morphine Sulfate (Morphine Sulfate 2 Mg/Ml Carp) 2 mg IV NOW STA Stop: 03/16/24 09:18 Last Admin: 03/16/24 09:22 Dose: 2 mg Documented By: MINH Morphine Sulfate (Morphine Sulfate 2 Mg/Ml Carp) 2 mg IV NOW STA Stop: 03/16/24 10:17 Last Admin: 03/16/24 10:29 Dose: 2 mg Documented By: MARIA TERESA Ofloxacin (Ofloxacin 0.3% 75 Drops/5 Ml Btl) 1 drops OP QID MIN Stop: 03/27/24 16:59 Last Admin: 03/27/24 14:47 Dose: Not Given Documented By: Admin: 03/27/24 08:06 Dose: 1 drops Documented By: Admin: 03/26/24 21:51 Dose: 1 drops Documented By: Admin: 03/26/24 18:10 Dose: 1 drops Documented By: Admin: 03/26/24 11:33 Dose: 1 drops Documented By: Admin: 03/26/24 08:57 Dose: 1 drops Documented By: Admin: 03/25/24 20:46 Dose: 1 drops Documented By: Admin: 03/25/24 17:06 Dose: Not Given Documented By: Admin: 03/25/24 13:04 Dose: 1 drops Documented By: Admin: 03/25/24 08:51 Dose: 1 drops Documented By: Admin: 03/24/24 20:07 Dose: 1 drops Documented By: Admin: 03/24/24 16:57 Dose: 1 drops Documented By: Admin: 03/24/24 11:23 Dose: 1 drops Documented By: Admin: 03/24/24 08:50 Dose: 1 drops Documented By: Admin: 03/23/24 21:03 Dose: 1 drops Documented By: Admin: 03/23/24 18:19 Dose: Not Given Documented By: Admin: 03/23/24 14:25 Dose: 1 drops Documented By: Admin: 03/23/24 10:38 Dose: 1 drops Documented By: Admin: 03/22/24 21:11 Dose: 1 drops Documented By: Admin: 03/22/24 16:50 Dose: Not Given Documented By: Admin: 03/22/24 13:17 Dose: 1 drops Documented By: Admin: 03/22/24 08:59 Dose: 1 drops Documented By: Admin: 03/21/24 20:42 Dose: 1 drops Documented By: Admin: 03/21/24 16:53 Dose: 1 drops Documented By: Admin: 03/21/24 12:59 Dose: 1 drops Documented By: Admin: 03/21/24 07:59 Dose: 1 drops Documented By: Admin: 03/20/24 21:08 Dose: 1 drops Documented By: Admin: 03/20/24 16:31 Dose: 1 drops Documented By: Admin: 03/20/24 13:25 Dose: 1 drops Documented By: Admin: 03/20/24 07:57 Dose: 1 drops Documented By: Admin: 03/19/24 20:27 Dose: 1 drops Documented By: Admin: 03/19/24 16:57 Dose: 1 drops Documented By: Admin: 03/19/24 12:50 Dose: 1 drops Documented By: Admin: 03/19/24 10:53 Dose: 1 drops Documented By: Admin: 03/18/24 19:23 Dose: 1 drops Documented By: Admin: 03/18/24 16:31 Dose: 1 drops Documented By: Admin: 03/18/24 14:08 Dose: 1 drops Documented By: Admin: 03/18/24 07:33 Dose: 1 drops Documented By: Admin: 03/17/24 20:39 Dose: 1 drops Documented By: Admin: 03/17/24 17:28 Dose: 1 drops Documented By: LATA Olanzapine (Olanzapine 10 Mg/2.1 Ml Sdv) 5 mg IM NOW STA Stop: 03/25/24 14:04 Last Admin: 03/25/24 14:15 Dose: 5 mg Documented By: YOLY Olanzapine (Olanzapine 10 Mg/2.1 Ml Sdv) 2.5 mg IM ONE ONE Stop: 03/28/24 11:08 Last Admin: 03/28/24 11:26 Dose: 2.5 mg Documented By: SAMIR Ondansetron HCl (Ondansetron Inj 2 Mg/Ml 2 Ml Vial) 4 mg IV NOW STA Stop: 03/16/24 07:41 Last Admin: 03/16/24 07:43 Dose: 4 mg Documented By: MINH Oxycodone HCl (Oxycodone Hcl Ir 5 Mg Tab (Immediate Release)) 5 - 10 mg PO QID PRN PRN Reason: Pain Stop: 03/31/24 05:30 Last Admin: 03/29/24 07:59 Dose: 5 mg Documented By: Admin: 03/26/24 14:58 Dose: 10 mg Documented By: Admin: 03/25/24 02:22 Dose: 10 mg Documented By: Admin: 03/24/24 20:05 Dose: 10 mg Documented By: Admin: 03/24/24 11:22 Dose: 10 mg Documented By: Admin: 03/24/24 05:41 Dose: 10 mg Documented By: Admin: 03/23/24 21:02 Dose: 10 mg Documented By: Admin: 03/23/24 10:36 Dose: 10 mg Documented By: Admin: 03/23/24 05:07 Dose: 10 mg Documented By: Admin: 03/22/24 22:50 Dose: 10 mg Documented By: Admin: 03/22/24 17:32 Dose: 10 mg Documented By: Admin: 03/22/24 02:02 Dose: 10 mg Documented By: Admin: 03/21/24 20:47 Dose: 10 mg Documented By: Admin: 03/21/24 12:59 Dose: 10 mg Documented By: Admin: 03/20/24 22:55 Dose: 5 mg Documented By: Admin: 03/20/24 15:28 Dose: 10 mg Documented By: Admin: 03/20/24 04:48 Dose: 5 mg Documented By: Admin: 03/19/24 19:42 Dose: 5 mg Documented By: Admin: 03/19/24 07:27 Dose: 5 mg Documented By: Admin: 03/18/24 21:55 Dose: 10 mg Documented By: Admin: 03/18/24 12:09 Dose: 5 mg Documented By: Admin: 03/18/24 11:03 Dose: 5 mg Documented By: DTT Phytonadione (Phytonadione 5 Mg Tab) 2.5 mg PO NOW STA Stop: 03/26/24 10:52 Last Admin: 03/26/24 11:32 Dose: 2.5 mg Documented By: [facility] Description This is a 21 electrode EEG with a single channel dedicated to limited EKG. The electrodes were placed in accordance with the International 10-20 system. REPORT: At the onset of the EEG the patient is in an altered mental state. The background is continuous and symmetric. The posterior dominant rhythm is not seen. Instead the background consist of 4-5 Hz theta activity with some intermixed delta activity. No stage II sleep transients are seen. No epileptiform discharges are seen. Interpretation IMPRESSION: This is an abnormal routine EEG in a patient with altered mentation due to generalized background slowing suggest of a non specific encephalopathy. No epileptiform activity or epileptiform discharges are seen.
[2024-04-01] MEDS: OPTIRAY 320 100ml IV ONE (14:37)
--- NOTE | 2024-04-01 15:01 | Hospitalist Progress Note ---
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 She was found by her granddaughter incontinent of stool and urine on the day of presentation. She is being managed for the following: Severe Sepsis POA Secondary to UTI Lactate levels trended down UTI Klebsiella bacteremia H/O ESBL --MRCP:Cholelithiasis without cholecystitis or common bile duct stone. Cirrhosis. --Blood cultures grew Klebsiella -- Repeat blood culture negative -- Urine culture grew E. coli -- Repeat urine culture 3 types of organisms -- Received ertapenem>> transition to cefazolin--completed 7-day antibiotic course -- Appreciate ID input -- Repeat blood cultures negative to date No ascites on ultrasound IV antibiotics discontinued Monitor off antibiotics Leukocytosis resolved Acute metabolic encephalopathy: Likely multifactorial Fall Patient presenting from home after being found by her family confused and incontinent of stool and urine. Seems like patient was likely down for about 2 days. In the ED, found to have T11-L1 compression fractures and left 2nd through 4th metatarsal fractures Admitting imaging: CTAP: age-indeterminate mild superior endplate compression deformities from T11-L1. Cirrhotic liver noted. Cholelithiasis, no GB wall thickening. Punctate nonobstructing stone within the cystic duct/proximal CBD. C-spine CT/head CT/Face CT:: No acute fracture T-spine CT/L-spine CT/Chest CT: T11-L1 fracture as above. Left foot x-ray: Mildly angulated transverse fracture at the necks of the 2nd through 4th metatarsals MRI Brain on 03/19- no acute abnormality reported MRI thoracic spine- no acute findings MRI lumbar spine- no evidence of fracture; refer to report for additional details. --Echo: EF 60 to 65%, mild concentric LVH, left ventricular systolic function normal. --Normal TSH --EEG:This is an abnormal routine EEG in a patient with altered mentation due to generalized background slowing suggest of a non specific encephalopathy. No epileptiform activity or epileptiform discharges are seen. Fall precautions Appreciate orthopedics input: Postop shoe, can weight-bear as tolerated. No surgical intervention. No brace needed for vertebral fractures. PT OT as able Appreciate neurology input Reorient frequently to minimize delirium Clinically no significant improvement in mental status Suspected multifocal abscesses Possible L4-L5 osteomyelitis DD:Subacute to chronic intramuscular hematoma Will repeat MRI lumbar spine for further evaluation Will discuss with orthopedic spine, ID based on MRI Steroid to restart antibiotics based on MRI Alcoholic cirrhosis: Alcohol use disorder Likely hepatic encephalopathy due to cirrhosis Possible Wernicke's encephalopathy --Last EGD 2012 - no esophageal or gastric varices, mild portal gastropathy. Admitting LFT elevated --Recommend patient cease all alcohol use. Low-sodium diet. Avoid hepatotoxic's. --Avoid hepatotoxic agents as able Started on IV thiamine Reorient frequently to minimize any delirium Continue lactulose to have 3-4 good bowel movements per day Also started on rifaximin Needs outpatient EGD, colonoscopy Needs follow-up with hepatology as outpatient Monitor LFTs Updated patient's family on multiple occasions GI on board Hypernatremia Sodium levels improved to 145 IV fluids as needed Monitor volume status, sodium levels Hypomagnesemia Replete and monitor Demand ischemia: trop mildly elevated Likely demand ischemia 2/2 acute illness. Portal vein thrombosis: Coumadin on hold Elevated INR:3.8 today Compression fracture of body of thoracic vertebra: Compression fracture of lumbar vertebra: CT shows compression fractures T11-L1 MRI thoracic and lumbar above Orthopedic spine evaluated, no brace, She should lift no more than 5 pounds. C/w pain Mx. P/OT. Metatarsal fracture: Left foot XR shows: Mildly angulated transverse fractures at the necks of the second through fourth metatarsals. Ortho evaled, no sx Ix, recommends post op shoe for weight bearing x 1 month. no f/u needed per ortho. --Management as above Acute on chronic anemia H/O abdominal wall hematoma Hemoglobin dropped partly dilutional due to IV fluids No obvious bleeding issues Monitor CBC Anemia workup ordered Monitor DVT Px: Elevated INR Hold Coumadin Code Status DNI/DNR Disposition To be determined Admission and Anticipated Discharge Date Admission Date: March 16, 2024 Subjective Patient is seen and examined at bedside Pleasantly confused Was able to answer few questions this morning Updated patient's family at bedside and over the phone Hemoglobin low, no obvious source of bleeding Poor historian No distress on exam Review of Systems Review of Systems: Unobtainable due to reduced consciousness Physical Exam Physical Exam: Physical Exam: Vitals signs as noted above General Appearance:Obese, Ill appearing Head: normocephalic, Atraumatic Eyes: normal inspection, EOMI, +Icteric Neck: supple, Trachea midline Respiratory/Chest: Normal breath sounds, CTA, No accessory muscle use Cardiovascular: S1, S2, No murmur Abdomen/GI:Soft, Non tender, +Protuberant, Bowel sounds present Extremities/Musculoskeletal:normal inspection, Left Foot Ecchymosis, 2+ edema Neurologic/Psych:confused, grossly no focal neurological deficits , lethargic Skin: normal color, warm,+Jaundice, + Multiple Ecchymosis Results & Data Results & Data Vital Signs (Past 12 Hours) Vital Signs Temp Pulse Pulse Resp BP BP Pulse Ox 04/01/24 12:12 94 H 04/01/24 10:49 36.4 C L 82 18 117/54 L 95 04/01/24 06:12 36.5 C 04/01/24 03:25 36 C L 83 18 107/57 L 93 O2 Del Method 04/01/24 12:12 04/01/24 10:49 Room Air 04/01/24 06:12 04/01/24 03:25 Room Air Laboratory Results Short CBC 04/01/24 Range/Units 06:21 WBC 8.45 (4.8-10.8) K/ul Hgb 7.1 L (12.0-16.0) g/dl Hct 22.8 L (37.0-47.0) % Plt Count 64 L (130-400) K/uL BMP 04/01/24 06:21 Sodium 145 Potassium 3.5 Chloride 115 H Carbon Dioxide 25 BUN 38 H Creatinine 1.01 Glucose 80 Calcium 9.2 Liver Function 04/01/24 Range/Units 06:21 Total Bilirubin 13.4 H (0.2-1.0) mg/dl AST 100 H (13-39) U/L ALT 20 (7-52) U/L Alkaline Phosphatase 133 H (34-104) U/L Albumin 2.3 L (3.4-5.0) gm/dl
--- NOTE | 2024-04-01 15:06 | CT Scan Report ---
CT OF THE ABDOMEN AND PELVIS WITH CONTRAST CLINICAL HISTORY: Anemia, H/O intramuscular hematoma COMPARISON STUDY: CT of the abdomen and pelvis March 16, 2024. MRCP March 21, 2024. TECHNIQUE: Following IV administration of 93 mL of Optiray, axial images of the abdomen and pelvis we re obtained from the lung bases to the proximal femurs. Images were reviewed in the axial, sagittal, and coronal planes. IV contrast was administered without complication. Automated exposure control wa s utilized for the study. A dose lowering technique was utilized adhering to the principles of ALARA . CT DOSE: 1437.43 mGy.cm FINDINGS: No pneumatosis, free air or portal venous gas is present. Body wall edema is suggestive of anasarca. Multiple calcified gallstones within the gallbladder are present. The gallbladder is modera tely distended. There is no pericholecystic infiltration. There is no biliary or pancreatic ductal di latation. The liver is cirrhotic. No hepatic lesions are identified on portal venous phase exam. A sm all amount of perihepatic ascites is noted. Upper abdominal varices are again noted. Spleen, adrenal glands and kidneys are unremarkable. No hydronephrosis. No evidence for a bowel obstruction. Sigmoid diverticulosis without evidence for acute diverticulitis. Bilateral psoas fluid collections have deve loped since prior exam. Right psoas fluid collection on image 248 of 381 measures 3 x 1.9 cm. Left ps oas fluid collection measures 2 x 1.4 cm. There is asymmetric enlargement with stranding adjacent to the left iliopsoas muscle which contains a 1.4 x 1.3 cm fluid collection. There is also asymmetric e nlargement of the left iliacus muscle. Slight irregularity of the superior endplate of L5 has develop ed since prior examination. IMPRESSION: 1. Interval development of fluid collections within the bilateral psoas muscles right larger than le ft. In addition, asymmetric enlargement with stranding adjacent to the left iliopsoas and iliacus mus cles with a small iliopsoas fluid collection. The findings raise the possibility of multifocal absces ses, possibly related to L4-L5 discitis/osteomyelitis. Lumbar spine MRI with and without contrast cou ld be obtained for further evaluation. Although less likely, subacute to chronic intramuscular hemato mas could appear similar. 2. Cirrhosis with a small amount of perihepatic ascites. 3. Anasarca. 4. Cholelithiasis with moderate gallbladder distention. No pericholecystic infiltration. If right upp er quadrant pain, ultrasound is recommended. ACT 112: Negative or not required by law. Electronically signed by: Giles Brown M.D. 04/01/2024 3:04 PM
--- NOTE | 2024-04-01 20:07 | Communication Note ---
Date of Service: April 02, 2024 Made aware by RN of abnormal MRI results. Findings concerning for acute discovertebral osteomyelitis at L4-5 with extensive prevertebral phlegmon/abscess involving the bilateral psoas muscles and left iliacus muscle. No evidence of epidural abscess. AP Lumbar osteomyelitis/retroperitoneal abscess CS, Daptomycin, Cefepime Await Orthopedic spine eval Patient daughter given phone update. (Ms. Meka Saenz, [phone]) She agrees to being designated contact lens blocker and cutter for patient's family. She requests to be called for updates regarding patient's care after 3 PM due to her work schedule.
[2024-04-02] MEDS: ACETAMINOPHEN 1,000 MG/100 ML VIAL IV STA (00:46)
[2024-04-02] MEDS: OLANZapine 10 MG/2.1 ML SDV IM PRN (00:50)
[2024-04-02] MEDS: GADOBUTROL 65ML VIAL IV ONE (02:14)
--- NOTE | 2024-04-02 03:16 | Magnetic Resonance Report ---
Exam(s): MRI L SPINE W/WO Contrast IV Amt: 9.5cc gadavist EXAM: MR Lumbar Spine Without and With Intravenous Contrast CLINICAL HISTORY: Reason for exam: rule out discitis/osteomyelitis. TECHNIQUE: Magnetic resonance images of the lumbar spine without and with intravenous contrast in multiple planes. CONTRAST: Patient received 9.5cc gadavist of IV contrast COMPARISON: Prior MRI of the lumbar spine from March 20, 2024. FINDINGS: This study is limited secondary to motion artifact. Vertebrae: There are 5 lumbar type vertebral bodies with a normal lumbar lordosis. Mild to moderate disc degeneration with annular disc bulging find a ventral thecal sac. Congenitally narrow spinal canal. The bone marrow signal is heterogeneous with erosive endplate changes and mild bone marrow edema at L4-5. There is increased disc signal at L4-5. No acute fracture. Spinal cord: Unremarkable. Normal signal. No abnormal enhancement. Soft tissues: Extensive prevertebral soft tissue swelling extending from C4-C5 with phlegmon/abscesses within the psoas muscles and left iliacus muscle. Edema and increased enhancement of the paraspinous muscles, left greater than right. IMPRESSION: Findings concerning for acute discovertebral osteomyelitis at L4-5 with extensive prevertebral phlegmon/abscess involving the bilateral psoas muscles and left iliacus muscle. No evidence of epidural abscess. Communications: Verify Receipt Electronically signed by: Krupa Perez MD 04/02/24 03:15 AM
[2024-04-02] MEDS: CEFEPIME 2,000 MG in SYRINGE 0 ML IV SCH (04:25)
[2024-04-02] MEDS: DAPTOmycin 425 MG in SYRINGE 0 ML IV SCH (04:27)
[2024-04-02 04:33] LABS: Anion Gap 4 (3-11); BUN Creatinine Ratio 32.1 (10-20); Blood Urea Nitrogen 35 mg/dl (6-23); Calcium 8.8 mg/dl (8.6-10.3); Carbon Dioxide 24 mmol/L (21-32); Chloride 117 mmol/L (98-107); Est GFR (African American) 57.1 ml/min; Est GFR (Non-African American) 49.3 ml/min; Glucose 115 mg/dl (70-99(Fasting)); Potassium 3.6 mmol/L (3.5-5.1); Sodium 145 mmol/L (136-145)
[2024-04-02 04:53] LABS: INR 3.8 (0.9-1.1); Prothrombin Time 36.4 Seconds (9.0-12.0)
[2024-04-02 05:17] LABS: Hematocrit (blood only) 20.6 % (37.0-47.0); Hemoglobin 6.3 g/dl (12.0-16.0); Mean Corpuscular Hgb Conc 30.6 g/dL (32.0-36.0); Mean Corpuscular Volume 117.7 fL (80.0-100.0); Mean Platelet Volume 12.8 fL (9.4-12.4); Nucleated RBC # (auto) 0.05 K/uL (0.00-0.12); Nucleated RBC % (auto) 0.7 %; Platelet Count 55 K/uL (130-400); RDW Coefficient of Variation 21.1 % (11.5-14.5); RDW Standard Deviation 86.3 fL (36.4-46.3); Red Blood Count 1.75 M/uL (4.20-5.40); White Blood Count 6.97 K/ul (4.8-10.8)
[2024-04-02] MEDS: PHYTONADIONE 10 MG in DEXTROSE 5% 50 ML IV ONE (05:29)
[2024-04-02 05:31] LABS: Alanine Aminotransferase 24 U/L (7-52); Albumin Globulin Ratio 0.6 (0.9-2); Albumin Level 1.9 gm/dl (3.4-5.0); Alkaline Phosphatase 130 U/L (34-104); Aspartate Aminotransferase 97 U/L (13-39); Globulin 3.1 gm/dl (2.5-4.0); Iron 74 mcg/dl (35-150); Magnesium 1.8 mg/dl (1.7-2.4); Unsaturated Iron Binding Cap < 55 mcg/dl (155-355)
[2024-04-02 06:55] LABS: Hematocrit (blood only) 20.4 % (37.0-47.0); Hemoglobin 6.5 g/dl (12.0-16.0)
[2024-04-02] MEDS ORDERED: SODIUM CHLORIDE 0.9% 250 ML IV PRN (07:13)
[2024-04-02] MEDS: FUROSEMIDE INJ 20 MG/2 ML VIAL IV ONE (08:53)
--- NOTE | 2024-04-02 11:09 | Consultation ---
Date of Consultation April 02, 2024 Assessment & Plan (1) Discitis of lumbar region: Dr. Cervantes has reviewed imaging. She has a discitis of L4-5. Of bigger concern is the extension of the abscess into the psoas muscles bilaterally. From the discitis standpoint, treatment is conservative with IV antibiotics. Would recommend reconsulting infectious disease. No surgical intervention at this point in time regarding her discitis at L4-5. May need referral out to tertiary care center for psoas muscle abscess. History of Present Illness Reason for Consultation: Discitis L4-5 Attending Physician: Jer Smith MD History of Present Illness Augusta is here day 17 from admission with multiple medical issues. New lumbar MRI was performed last evening and shows osteomyelitis of L4-5 with involvement of bilateral psoas musculature. Patient is nonverbal this morning. History is of been obtained from her nurse as well as her 2 sisters were visiting this morning. Nurse states that overnight she was thrashing around in bed in pain. Pain was diffuse. Allergies Allergy/AdvReac Type Severity Reaction Status Date / Time Penicillins Allergy Severe UNKNOWN Verified 03/16/24 10:27 aspirin Allergy Intermediate HIVES Verified 03/16/24 10:27 Home Medications Medication Instructions Recorded Confirmed Type atenolol 25 mg tablet 25 mg PO QAM 07/14/20 03/16/24 History [id number]-[id number] 25 30 ml PO Q4 PRN Cold Symptoms 07/14/20 03/16/24 History mg-10 mg-650 mg/30 mL oral liquid multivitamin with minerals-folic 1 tab PO DAILY ##0 07/14/20 03/16/24 History acid 80 mcg chewable tablet warfarin 1 mg tablet 1 mg PO DAILY 03/16/24 03/16/24 History Patient History Medical History Portal vein thrombosis Alcoholic cirrhosis Anemia 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 Multiple rib fractures Depression Anticoagulated on Coumadin Hypertension Surgical History No pertinent past surgical history Social History Smoking Status: Never smoker Hx Alcohol Use: Yes Alcohol type: wine Hx Substance Use: No Preferred Language: Martiniquais Communication Ability: Effective Compliance Quality Performance Analyst Required: No Beliefs That Will Affect Care: None Current Living Situation: Family Feels Safe at Home: Yes Safety Concerns: Feels Safe At This Time Assistive Devices: Cane and Walker Review of Systems Review of Systems: Unobtainable due to cognitive status Physical Exam Physical Exam: She is laying in bed comfortable but is nonverbal. Unable to answer questions. Unable to follow commands. She is jaundiced. Unable to perform adequate physical exam due to above-mentioned findings Results & Data Vital Signs (Past 12 Hours) Vital Signs Temp Pulse Pulse Resp BP BP Pulse Ox 04/02/24 10:56 36.1 C L 72 20 115/60 95 04/02/24 10:08 36.1 C L 68 20 115/61 97 04/02/24 09:08 36.3 C L 76 20 128/75 95 04/02/24 09:08 36.3 C L 76 20 128/75 95 04/02/24 09:08 36.1 C L 68 18 115/61 97 04/02/24 08:38 36.1 C L 72 18 120/50 L 96 04/02/24 08:23 36.3 C L 80 18 131/84 97 04/02/24 08:05 36.4 C L 72 18 100/61 94 04/02/24 07:24 36.5 C 88 20 119/59 L 93 04/02/24 03:00 36.4 C L 75 16 100/47 L 93 04/02/24 02:30 90 O2 Del Method 04/02/24 10:56 04/02/24 10:08 04/02/24 09:08 04/02/24 09:08 04/02/24 09:08 04/02/24 08:38 04/02/24 08:23 04/02/24 08:05 04/02/24 07:24 Room Air 04/02/24 03:00 Room Air 04/02/24 02:30 [phone] Resonance Report Patient: AUGUSTA DE ANDA Admit Date: 03/16/24 MR#: [id number] Address1: [address] Acct ID:[id number] Address2: Date: 1945 [facility] Zip: [place] [address] Age: 78 Location: Sex: F Room/Bed: [facility] Att Phy: Jer Smith MD Diagnosis: SYNCOPE Linette Phy: Keegan Felipe MD Service Date: 04/02/24 Fam Phy: Interpreting Phy: Krupa Perez MDAdmit Phy: Jer Smith MD Ordering Phy: Jer Smith MD cc: ~ ADDENDUM ADDENDUM: 04/02/24 03:30 Verify Receipt Verified receipt with Nurse Mylene - report given to DR. VANESA Albert on 04/02 03:30 (-04:00) Electronically signed by: Krupa Perez MD Electronically signed by: Krupa Perez MD 04/02/24 03:15 AM ADDENDUM END Exam(s): MRI L SPINE W/WO Contrast IV Amt: 9.5cc gadavist EXAM: MR Lumbar Spine Without and With Intravenous Contrast CLINICAL HISTORY: Reason for exam: rule out discitis/osteomyelitis. TECHNIQUE: Magnetic resonance images of the lumbar spine without and with intravenous contrast in multiple planes. CONTRAST: Patient received 9.5cc gadavist of IV contrast COMPARISON: Prior MRI of the lumbar spine from March 20, 2024. FINDINGS: This study is limited secondary to motion artifact. Vertebrae: There are 5 lumbar type vertebral bodies with a normal lumbar lordosis. Mild to moderate disc degeneration with annular disc bulging find a ventral thecal sac. Congenitally narrow spinal canal. The bone marrow signal is heterogeneous with erosive endplate changes and mild bone marrow edema at L4-5. There is increased disc signal at L4-5. No acute fracture. Spinal cord: Unremarkable. Normal signal. No abnormal enhancement. Soft tissues: Extensive prevertebral soft tissue swelling extending from C4-C5 with phlegmon/abscesses within the psoas muscles and left iliacus muscle. Edema and increased enhancement of the paraspinous muscles, left greater than right. IMPRESSION: Findings concerning for acute discovertebral osteomyelitis at L4-5 with extensive prevertebral phlegmon/abscess involving the bilateral psoas muscles and left iliacus muscle. No evidence of epidural abscess. Communications: Verify Receipt Electronically signed by: Krupa Perez MD 04/02/24 03:15 AM Dictated: 04/02/24314 Transcribed: 04/02/24314
--- NOTE | 2024-04-02 18:23 | Hospitalist Progress Note ---
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 She was found by her granddaughter incontinent of stool and urine on the day of presentation. She is being managed for the following: Severe Sepsis POA Secondary to UTI Lactate levels trended down UTI Klebsiella bacteremia H/O ESBL --MRCP:Cholelithiasis without cholecystitis or common bile duct stone. Cirrhosis. --Blood cultures grew Klebsiella -- Repeat blood culture negative -- Urine culture grew E. coli -- Repeat urine culture 3 types of organisms -- Received ertapenem>> transition to cefazolin--completed 7-day antibiotic course -- Appreciate ID input -- Repeat blood cultures negative to date --No ascites on ultrasound Acute discovertebral osteomyelitis L4-L5 Extensive prevertebral phlegmon/abscess of b/l psoas muscles, left iliac muscle --Lumbar MRI:Findings concerning for acute discovertebral osteomyelitis at L4-5 with extensive prevertebral phlegmon/abscess involving the bilateral psoas muscles and left iliacus muscle. No evidence of epidural abscess. --Follow-up repeat blood cultures -- Started on daptomycin, cefepime -- Appreciate orthopedic surgery input -- Consulted ID -- Needs goals of care addressed. Consulted palliative care -- Updated patient's family in detail on multiple occasions -- May need to transfer to tertiary care facility if patient's family prefers for possible IR drainage Acute metabolic encephalopathy: Likely multifactorial Fall Patient presenting from home after being found by her family confused and incontinent of stool and urine. Seems like patient was likely down for about 2 days. In the ED, found to have T11-L1 compression fractures and left 2nd through 4th metatarsal fractures Admitting imaging: CTAP: age-indeterminate mild superior endplate compression deformities from T11-L1. Cirrhotic liver noted. Cholelithiasis, no GB wall thickening. Punctate nonobstructing stone within the cystic duct/proximal CBD. C-spine CT/head CT/Face CT:: No acute fracture T-spine CT/L-spine CT/Chest CT: T11-L1 fracture as above. Left foot x-ray: Mildly angulated transverse fracture at the necks of the 2nd through 4th metatarsals MRI Brain on 03/19- no acute abnormality reported MRI thoracic spine- no acute findings MRI lumbar spine- no evidence of fracture; refer to report for additional details. --Echo: EF 60 to 65%, mild concentric LVH, left ventricular systolic function normal. --Normal TSH --EEG:This is an abnormal routine EEG in a patient with altered mentation due to generalized background slowing suggest of a non specific encephalopathy. No epileptiform activity or epileptiform discharges are seen. Fall precautions Appreciate orthopedics input: Postop shoe, can weight-bear as tolerated. No surgical intervention. No brace needed for vertebral fractures. PT OT as able Appreciate neurology input Reorient frequently to minimize delirium Clinically no significant improvement in mental status Alcoholic cirrhosis: Alcohol use disorder Likely hepatic encephalopathy due to cirrhosis Possible Wernicke's encephalopathy --Last EGD 2012 - no esophageal or gastric varices, mild portal gastropathy. Admitting LFT elevated --Recommend patient cease all alcohol use. Low-sodium diet. Avoid hepatotoxic's. --Avoid hepatotoxic agents as able Started on IV thiamine Reorient frequently to minimize any delirium Continue lactulose to have 3-4 good bowel movements per day Also started on rifaximin Needs outpatient EGD, colonoscopy Needs follow-up with hepatology as outpatient Monitor LFTs Updated patient's family on multiple occasions GI on board Hypernatremia Sodium levels improved to 145 IV fluids as needed Monitor volume status, sodium levels Hypomagnesemia Replete and monitor Demand ischemia: trop mildly elevated Likely demand ischemia 2/2 acute illness. Portal vein thrombosis: Coumadin on hold Elevated INR:3.8 today Compression fracture of body of thoracic vertebra: Compression fracture of lumbar vertebra: CT shows compression fractures T11-L1 MRI thoracic and lumbar above Orthopedic spine evaluated, no brace, She should lift no more than 5 pounds. C/w pain Mx. P/OT. Metatarsal fracture: Left foot XR shows: Mildly angulated transverse fractures at the necks of the second through fourth metatarsals. Ortho evaled, no sx Ix, recommends post op shoe for weight bearing x 1 month. no f/u needed per ortho. --Management as above Acute on chronic anemia Subacute to chronic intramuscular hematomas H/O abdominal wall hematoma S/P PRBCs Monitor H&H and transfuse as needed DVT Px: Elevated INR Hold Coumadin Code Status DNI/DNR Disposition To be determined Admission and Anticipated Discharge Date Admission Date: March 16, 2024 Subjective Patient is seen and examined at bedside More disoriented and drowsy today Unable to obtain any history today Discussed with patient's family at bedside and over the phone Clinically deteriorating Noted drop in hemoglobin, received PRBCs overnight Lumbar MRI consistent with osteomyelitis of L4-L5 with extensive prevertebral phlegmon/Abscess Review of Systems Review of Systems: All systems reviewed & are unremarkable except as noted in Subjective Physical Exam Physical Exam: Physical Exam: Vitals signs as noted above General Appearance:Obese, Ill appearing Head: normocephalic, Atraumatic Eyes: normal inspection, EOMI, +Icteric Neck: supple, Trachea midline Respiratory/Chest: Normal breath sounds, CTA, No accessory muscle use Cardiovascular: S1, S2, No murmur Abdomen/GI:Soft, Non tender, +Protuberant, Bowel sounds present Extremities/Musculoskeletal:normal inspection, Left Foot Ecchymosis, 2+ edema Neurologic/Psych:confused, lethargic, grossly no focal neurological deficits Skin: normal color, warm,+Jaundice, + Multiple Ecchymosis Results & Data Results & Data Vital Signs (Past 12 Hours) Vital Signs Temp Pulse Pulse Resp BP BP Pulse Ox 04/02/24 16:00 72 04/02/24 16:00 36.6 C 68 20 135/72 96 04/02/24 11:53 36.6 C 77 18 124/62 96 04/02/24 10:56 36.1 C L 72 20 115/60 95 04/02/24 10:08 36.1 C L 68 20 115/61 97 04/02/24 09:08 36.3 C L 76 20 128/75 95 04/02/24 09:08 36.3 C L 76 20 128/75 95 04/02/24 09:08 36.1 C L 68 18 115/61 97 04/02/24 09:00 04/02/24 08:38 36.1 C L 72 18 120/50 L 96 04/02/24 08:23 36.3 C L 80 18 131/84 97 04/02/24 08:05 36.4 C L 72 18 100/61 94 04/02/24 08:00 67 04/02/24 07:24 36.5 C 88 20 119/59 L 93 O2 Del Method 04/02/24 16:00 04/02/24 16:00 Room Air 04/02/24 11:53 Room Air 04/02/24 10:56 04/02/24 10:08 04/02/24 09:08 04/02/24 09:08 04/02/24 09:08 04/02/24 09:00 Room Air 04/02/24 08:38 04/02/24 08:23 04/02/24 08:05 04/02/24 08:00 04/02/24 07:24 Room Air Laboratory Results Short CBC 04/02/24 04/02/24 Range/Units 03:56 06:22 WBC 6.97 (4.8-10.8) K/ul Hgb 6.3 L* 6.5 L* (12.0-16.0) g/dl Hct 20.6 L* 20.4 L* (37.0-47.0) % Plt Count 55 L (130-400) K/uL BMP 04/02/24 03:56 Sodium 145 Potassium 3.6 Chloride 117 H Carbon Dioxide 24 BUN 35 H Creatinine 1.09 Glucose 115 H Calcium 8.8 Liver Function 04/02/24 Range/Units 03:56 Total Bilirubin 12.0 H (0.2-1.0) mg/dl AST 97 H (13-39) U/L ALT 24 (7-52) U/L Alkaline Phosphatase 130 H (34-104) U/L Albumin 1.9 L (3.4-5.0) gm/dl
[2024-04-02 19:30] LABS: Hematocrit (blood only) 25.1 % (37.0-47.0); Hemoglobin 8.3 g/dl (12.0-16.0)
[2024-04-03 06:58] LABS: Hematocrit (blood only) 24.6 % (37.0-47.0); Hemoglobin 8.1 g/dl (12.0-16.0); Mean Corpuscular Hemoglobin 35.4 pg (25.0-34.0); Mean Corpuscular Hgb Conc 32.9 g/dL (32.0-36.0); Mean Corpuscular Volume 107.4 fL (80.0-100.0); Mean Platelet Volume 12.3 fL (9.4-12.4); Nucleated RBC # (auto) 0.06 K/uL (0.00-0.12); Nucleated RBC % (auto) 0.6 %; Platelet Count 57 K/uL (130-400); RDW Coefficient of Variation 25.4 % (11.5-14.5); RDW Standard Deviation 99.1 fL (36.4-46.3); Red Blood Count 2.29 M/uL (4.20-5.40)
[2024-04-03 07:13] LABS: Albumin Globulin Ratio 0.6 (0.9-2); BUN Creatinine Ratio 31.8 (10-20); Bilirubin,Total 12.7 mg/dl (0.2-1.0); Calcium 8.9 mg/dl (8.6-10.3); Creatinine Clr Calc Pharmacy 50.4 ml/min; Est GFR (African American) 58.4 ml/min; Est GFR (Non-African American) 50.4 ml/min; Globulin 3.3 gm/dl (2.5-4.0); Potassium 3.8 mmol/L (3.5-5.1); Total Protein 5.3 gm/dl (6.0-8.3)
[2024-04-03 07:22] LABS: INR 2.7 (0.9-1.1); Prothrombin Time 26.5 Seconds (9.0-12.0)
--- NOTE | 2024-04-03 15:47 | Hospitalist Progress Note ---
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 She was found by her granddaughter incontinent of stool and urine on the day of presentation. She is being managed for the following: Severe Sepsis POA Secondary to UTI Lactate levels trended down UTI Klebsiella bacteremia H/O ESBL --MRCP:Cholelithiasis without cholecystitis or common bile duct stone. Cirrhosis. --Blood cultures grew Klebsiella -- Repeat blood culture negative -- Urine culture grew E. coli -- Repeat urine culture 3 types of organisms -- Received ertapenem>> transition to cefazolin--completed 7-day antibiotic course -- Appreciate ID input -- Repeat blood cultures negative to date --No ascites on ultrasound Continue current management Acute discovertebral osteomyelitis L4-L5 Extensive prevertebral phlegmon/abscess of b/l psoas muscles, left iliac muscle --Lumbar MRI:Findings concerning for acute discovertebral osteomyelitis at L4-5 with extensive prevertebral phlegmon/abscess involving the bilateral psoas muscles and left iliacus muscle. No evidence of epidural abscess. --Follow-up repeat blood cultures -- Started on daptomycin, cefepime -- Appreciate orthopedic surgery input -- Consulted ID -- Needs goals of care addressed. Consulted palliative care -- Updated patient's family in detail on multiple occasions -- May need to transfer to tertiary care facility if patient's family prefers for possible IR drainage Await family decision/palliative care input Acute metabolic encephalopathy: Likely multifactorial Fall Patient presenting from home after being found by her family confused and incontinent of stool and urine. Seems like patient was likely down for about 2 days. In the ED, found to have T11-L1 compression fractures and left 2nd through 4th metatarsal fractures Admitting imaging: CTAP: age-indeterminate mild superior endplate compression deformities from T11-L1. Cirrhotic liver noted. Cholelithiasis, no GB wall thickening. Punctate nonobstructing stone within the cystic duct/proximal CBD. C-spine CT/head CT/Face CT:: No acute fracture T-spine CT/L-spine CT/Chest CT: T11-L1 fracture as above. Left foot x-ray: Mildly angulated transverse fracture at the necks of the 2nd through 4th metatarsals MRI Brain on 03/19- no acute abnormality reported MRI thoracic spine- no acute findings MRI lumbar spine- no evidence of fracture; refer to report for additional details. --Echo: EF 60 to 65%, mild concentric LVH, left ventricular systolic function normal. --Normal TSH --EEG:This is an abnormal routine EEG in a patient with altered mentation due to generalized background slowing suggest of a non specific encephalopathy. No epileptiform activity or epileptiform discharges are seen. Fall precautions Appreciate orthopedics input: Postop shoe, can weight-bear as tolerated. No surgical intervention. No brace needed for vertebral fractures. PT OT as able Appreciate neurology input Reorient frequently to minimize delirium Alcoholic cirrhosis: Alcohol use disorder Likely hepatic encephalopathy due to cirrhosis Possible Wernicke's encephalopathy --Last EGD 2012 - no esophageal or gastric varices, mild portal gastropathy. Admitting LFT elevated --Recommend patient cease all alcohol use. Low-sodium diet. Avoid hepatotoxic's. --Avoid hepatotoxic agents as able Started on IV thiamine Reorient frequently to minimize any delirium Continue lactulose to have 3-4 good bowel movements per day Also started on rifaximin Needs outpatient EGD, colonoscopy Needs follow-up with hepatology as outpatient Monitor LFTs Updated patient's family on multiple occasions GI on board Titrate lactulose for 2-3 good bowel movements per day Hypernatremia Sodium levels 147 today IV fluids as needed Monitor volume status, sodium levels Given anasarca, high threshold to start IV fluids Hypomagnesemia Replete and monitor Demand ischemia: trop mildly elevated Likely demand ischemia 2/2 acute illness. Portal vein thrombosis: Coumadin on hold Elevated INR: 2.7 today Compression fracture of body of thoracic vertebra: Compression fracture of lumbar vertebra: CT shows compression fractures T11-L1 MRI thoracic and lumbar above Orthopedic spine evaluated, no brace, She should lift no more than 5 pounds. C/w pain Mx. P/OT. Metatarsal fracture: Left foot XR shows: Mildly angulated transverse fractures at the necks of the second through fourth metatarsals. Ortho evaled, no sx Ix, recommends post op shoe for weight bearing x 1 month. no f/u needed per ortho. --Management as above Acute on chronic anemia Subacute to chronic intramuscular hematomas H/O abdominal wall hematoma S/P PRBCs Monitor H&H and transfuse as needed DVT Px: Elevated INR Hold Coumadin Code Status DNI/DNR Disposition To be determined Admission and Anticipated Discharge Date Admission Date: March 16, 2024 Subjective Patient is seen and examined at bedside Oriented to person and place during my encounter today Hb stable today Afebrile ID evaluation pending Patient denies any chest pain, dyspnea Clinically no significant improvement Review of Systems Review of Systems: All systems reviewed & are unremarkable except as noted in Subjective Physical Exam Physical Exam: Physical Exam: Vitals signs as noted above General Appearance:Obese, Ill appearing Head: normocephalic, Atraumatic Eyes: normal inspection, EOMI, +Icteric Neck: supple, Trachea midline Respiratory/Chest: Normal breath sounds, CTA, No accessory muscle use Cardiovascular: S1, S2, No murmur Abdomen/GI:Soft, Non tender, +Protuberant, Bowel sounds present Extremities/Musculoskeletal:normal inspection, Left Foot Ecchymosis, 2+ edema Neurologic/Psych:lethargic, grossly no focal neurological deficits Skin: normal color, warm,+Jaundice, + Multiple Ecchymosis Results & Data Results & Data Vital Signs (Past 12 Hours) Vital Signs Temp Pulse Resp BP Pulse Ox O2 Del Method 04/03/24 11:00 36.5 C 68 18 118/71 99 Room Air 04/03/24 07:00 36.6 C 88 20 125/63 97 Room Air 04/03/24 04:00 36.6 C 79 17 117/70 95 Room Air Laboratory Results Short CBC 04/02/24 04/03/24 Range/Units 18:30 06:32 WBC 9.60 (4.8-10.8) K/ul Hgb 8.3 L 8.1 L (12.0-16.0) g/dl Hct 25.1 L 24.6 L (37.0-47.0) % Plt Count 57 L (130-400) K/uL BMP 04/03/24 06:32 Sodium 147 H Potassium 3.8 Chloride 116 H Carbon Dioxide 24 BUN 34 H Creatinine 1.07 Glucose 104 H Calcium 8.9 Liver Function 04/03/24 Range/Units 06:32 Total Bilirubin 12.7 H (0.2-1.0) mg/dl AST 96 H (13-39) U/L ALT 27 (7-52) U/L Alkaline Phosphatase 138 H (34-104) U/L Albumin 2.0 L (3.4-5.0) gm/dl
--- NOTE | 2024-04-03 19:27 | Palliative Care Consultation ---
Date of Consultation April 03, 2024 Assessment & Plan (1) Agitation: (2) Wernicke encephalopathy: (3) Altered mental status: (4) Weakness generalized: (5) Discussion about advance care planning held with family member: A face to face Zoom video family meeting was held for 50min with pt grand daughter/SDM Meka along with these additional family members:sons Jerry and John, grand daughters Diamante, Sophie, Dottie, Aleena, Nayeli Clinical events to date reviewed Family shared overall trajectory of patient's addiction and progressive decline Prior to this admission, she was living on her own, not adhering to medical advice/not keeping medical appt and admittedly consuming regular ETOH She was interactive with her family and had calls/messages She was able to manage her ADLs but not always very well Discussed current complications including the discitis and psoas abscess. Reviewed options for conservative management with antibiotics versus escalation to a tertiary level of care for surgical evaluation. Family updated that there are no surgical options available within our area and therefore transfer to a tertiary center would be needed. Family ask of treating the psoas infection we will cure, reverse or improve her liver failure. We discussed the nature of alcoholic cirrhosis as well as the potential of Wernicke's encephalopathy,which is the presence of neurological symptoms caused by biochemical lesions of the central nervous system after exhaustion of B-vitamin reserves, in particular thiamine, common risk factor with alcoholism. We also discussed the changes that occur with progressive alcoholic cirrhosis and Wernicke's and an eventual transition to a dementia like syndrome. I discussed with them that WernickeKorsakoff syndrome is a condition that is similar to dementia and is caused by drinking too much alcohol. In WernickeKorsakoff syndrome the damage to the brain is caused in a very specific way: Alcohol prevents the body from getting enough thiamine (vitamin B1), which is vital for brain cells to work properly. This lack of vitamin B1 can have severe and long-lasting effects on the brain. I reviewed that it has two separate stages. First there will be a brief time when a person has intense inflammation (swelling) of their brain. This is known as Wernickes encephalopathy. If this condition isnt treated quickly, the person may develop a more long-term condition called Korsakoffs syndrome. This has many of the same symptoms of dementia. We discussed that a quarter of the people affected by WernickeKorsakoff syndrome who get treatment make a good recovery. About half make a partial recovery and still need support to manage their lives. About a quarter of people with the condition make no recovery and may need long-term care in a specialist residential correction. We reviewed that treatment of the infection may help some of her mental status cloudiness improve but it would be difficult for us to tell them that would be a substantial improvement at this junction given that her overall liver disease is fairly significant. She is not a candidate for liver transplant. Additionally, she is very deconditioned and would need substantial rehabilitation to improve her deconditioning. At this time she is not able to meaningfully participate in therapy or follow commands. After extensive discussion, family felt that patient would not want to be in a prolonged chronic care facility for purpose of simply existing. They also add that they would not wish to add to her distress with more invasive interventions and feel that a conservative approach with continued antibiotics would be most reasonable and in line with what patient would want for herself. They reaffirmed her code no CODE STATUS of DNR/DNI and note that she has been very vocal about her wish to allow a natural and the desire to avoid all artificial means of life support and that she has shared this opinion with them many times throughout her life and that is not a change they wish to make in her plan of care. Her son Jerry is the primary surrogate decision maker but notes they discussed everything as a family and try to arrive at a collective decision. At this time, they wish to pursue a concern with IV antibiotics and transition when stable to a correction facility for continuation of antibiotics until completion as well as possibly a trial of rehab if she can qualify. They understand that placement may be difficult due to both availability and the complexity of her needs. We will ask infectious disease if oral antibiotic regimens are possible. Family states that a facility in any of the following cities would be acceptable to them but they understand that if a bed is not available in their top 5 choices, they would accept whatever placement is able to be made for her because home health with family members and/or home hospice would not be possible. They are willing and hoping for placement in [place], [facility], [place], [place]. We agreed that I would pass this information along to the primary team and care management and we can always reconvene for another discussion once additional information is available. We agreed that we would move forward with a conservative approach of antibiotic therapy. Should she have any acute worsening or further decline they would want to transition her to comfort care and allow a natural . (6) Palliative care by specialist: Introduced Palliative Medicine and explained our role in patient's care. Patient and/or family were receptive to palliative services for goals of care discussions. Reviewed we are different from hospice, a home health nurse visiting service. Plan As above Thank you for allowing us to participate in the ongoing care of this patient. Please page with any additional concerns. Ez Helton DNP Director, Palliative Medicine History of Present Illness Reason for Consultation: GO, metab enceph Attending Physician: Jer Smith MD History of Present Illness Admitted 03/16/24 with confusion, s/p fall +metab encep, + T11 to L1 comp fx and left 2-4 metatarsal fx, +/- poss UTI +SIRS to severe sepsis this admission incontinent stool and urine +demand ischemia w/elev trop, likely due to acute illness known alcoholic, +etoh cirrhosis stopped seeing GI years ago non compliant and non adherent continues active etoh abuse ?wernicke;s encep Echo: EF 60 to 65%, mild concentric LVH, left ventricular systolic function normal. -Normal TSH --EEG:This is an abnormal routine EEG in a patient with altered mentation due to generalized background slowing suggest of a non specific encephalopathy. No epileptiform activity or epileptiform discharges are seen. Fall precautions 04/02: Lumbar MRI: Findings concerning for acute diskitis vertebral osteomyelitis at L4-5 with extensive prevertebral phlegmon/abscess involving the bilateral psoas muscles and left iliacus muscle. No evidence of epidural abscess. Impression: + lumbar osteomyelitis/retroperitoneal abscess ortho spine eval: discitis of L4-5. Of bigger concern is the extension of the abscess into the psoas muscles bilaterally. From the discitis standpoint, treatment is conservative with IV antibiotics. Would recommend reconsulting infectious disease. No surgical intervention at this point in time regarding her discitis at L4-5. May need referral out to tertiary care center for psoas muscle abscess. Pt seen bedside no family present she is alert to self at times but not to place or time she cannot follow commands she states "can you get me an ice cold grapefruit juice?" and "Make sure there is no booze in my bed, otherwise I'll drink it. I like booze." Allergies Allergy/AdvReac Type Severity Reaction Status Date / Time Penicillins Allergy Severe UNKNOWN Verified 03/16/24 10:27 aspirin Allergy Intermediate HIVES Verified 03/16/24 10:27 Home Medications Medication Instructions Recorded Confirmed Type atenolol 25 mg tablet 25 mg PO QAM 07/14/20 03/16/24 History pseuhccde-KN-sigrhlmxiumbk 25 30 ml PO Q4 PRN Cold Symptoms 07/14/20 03/16/24 History mg-10 mg-650 mg/30 mL oral liquid multivitamin with minerals-folic 1 tab PO DAILY ##0 07/14/20 03/16/24 History acid 80 mcg chewable tablet warfarin 1 mg tablet 1 mg PO DAILY 03/16/24 03/16/24 History Patient History Medical History Portal vein thrombosis Alcoholic cirrhosis Anemia 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 Multiple rib fractures Depression Anticoagulated on Coumadin Hypertension Surgical History No pertinent past surgical history Social History Smoking Status: Never smoker Hx Alcohol Use: Yes Alcohol type: wine Hx Substance Use: No Preferred Language: Azerbaijani Communication Ability: Effective National Insurance Officer Required: No Beliefs That Will Affect Care: None Current Living Situation: Family Feels Safe at Home: Yes Safety Concerns: Feels Safe At This Time Assistive Devices: Cane and Walker Review of Systems Review of Systems: Unobtainable due to cognitive status Physical Exam Constitutional: + acute distress, + ill appearing, + alt ered mental status, + behavioral limitations, + disheveled and + malnourished agitated, restless, naked, disheveled, pulling at linens Eyes: PERRL ENMT: poor dentition MM dry no obvious thrush Neck: no stridor Respiratory: limited anterior exam: diminished breath sounds, no gross wheezing Cardiovascular: tachy, no gross JVD Gastrointestinal (Abdomen): distended BS + Musculoskeletal: agitated and unable to follow commands overall deconditioning Skin: jaundice Neurologic: alert to self/name only otherwise confused cannot follow commands [facility] + delirium screen + Results & Data Vital Signs (Past 12 Hours) Vital Signs Temp Pulse Resp BP Pulse Ox O2 Del Method 04/03/24 19:00 36.8 C 88 18 119/68 96 Room Air 04/03/24 14:00 36.5 C 70 20 101/78 96 Room Air 04/03/24 11:00 36.5 C 68 18 118/71 99 Room Air Laboratory Results 04/03/24 04/02/24 04/02/24 Range/Units 06:32 18:30 06:22 WBC 9.60 (4.8-10.8) K/ul RBC 2.29 L (4.20-5.40) M/uL Hgb 8.1 L 8.3 L 6.5 L* (12.0-16.0) g/dl Hct 24.6 L 25.1 L 20.4 L* (37.0-47.0) % MCV 107.4 H D (80.0-100.0) fL MCH 35.4 H (25.0-34.0) pg MCHC 32.9 (32.0-36.0) g/dL RDW Std Deviation 99.1 H (36.4-46.3) fL RDW Coeff of Martinez 25.4 H (11.5-14.5) % Plt Count 57 L (130-400) K/uL MPV 12.3 (9.4-12.4) fL Immature Gran % (Auto) % Neut % (Auto) % Lymph % (Auto) % [place] % (Auto) % Eos % (Auto) % Baso % (Auto) % Neut # (Auto) (1.40-6.50) K/uL Lymph # (Auto) (1.20-3.40) K/uL [place] # (Auto) (0.11-0.59) K/uL Eos # (Auto) (0.00-0.50) K/uL Baso # (Auto) (0.00-0.20) K/uL Immature Gran # (Auto) (0.01-0.20) K/uL Absolute Nucleated RBC 0.06 (0.00-0.12) K/uL Nucleated RBC % (auto) 0.6 % Polychromasia Macrocytosis Echinocytes PT 26.5 H (9.0-12.0) Seconds INR 2.7 H (0.9-1.1) VBG pH (7.36-7.41) VBG pCO2 (38-50) mmHg VBG pO2 mmHg VBG HCO3 mmol/L VBG O2 Saturation % VBG Base Excess mEq/L Sodium 147 H (136-145) mmol/L Potassium 3.8 (3.5-5.1) mmol/L Chloride 116 H (98-107) mmol/L Carbon Dioxide 24 (21-32) mmol/L Anion Gap 7 (3-11) BUN 34 H (6-23) mg/dl Creatinine 1.07 (0.6-1.2) mg/dl Est Cr Clr Drug Dosing 50.4 ml/min Est GFR ( Amer) 58.4 ml/min Est GFR (Non-Af Amer) 50.4 ml/min BUN/Creatinine Ratio 31.8 H (10-20) Glucose 104 H (70-99(Fasting)) mg/dl Calcium 8.9 (8.6-10.3) mg/dl Magnesium (1.7-2.4) mg/dl Iron (35-150) mcg/dl TIBC Unsaturated IBC (155-355) mcg/dl Transferrin % Sat Ferritin (8-388) ng/ml Total Bilirubin 12.7 H (0.2-1.0) mg/dl AST 96 H (13-39) U/L ALT 27 (7-52) U/L Alkaline Phosphatase 138 H (34-104) U/L Ammonia (18-72) umol/L Total Protein 5.3 L (6.0-8.3) gm/dl Albumin 2.0 L (3.4-5.0) gm/dl Globulin 3.3 (2.5-4.0) gm/dl Albumin/Globulin Ratio 0.6 L (0.9-2) Vitamin B12 (180-914) pg/ml Folate (>5.38) ng/ml TSH (0.300-4.500) uIu/ml Blood Type O Positive Antibody Screen NEGATIVE Crossmatch See Detail 04/02/24 04/01/24 03/31/24 Range/Units 03:56 06:21 07:59 WBC 6.97 8.45 11.12 H (4.8-10.8) K/ul RBC 1.75 L 1.96 L 2.01 L (4.20-5.40) M/uL Hgb 6.3 L* 7.1 L 7.2 L (12.0-16.0) g/dl Hct 20.6 L* 22.8 L 23.0 L (37.0-47.0) % MCV 117.7 H 116.3 H 114.4 H (80.0-100.0) fL MCH 36.0 H 36.2 H 35.8 H (25.0-34.0) pg MCHC 30.6 L 31.1 L 31.3 L (32.0-36.0) g/dL RDW Std Deviation 86.3 H 83.8 H 80.1 H (36.4-46.3) fL RDW Coeff of Martinez 21.1 H 20.5 H 20.0 H (11.5-14.5) % Plt Count 55 L 64 L 69 L (130-400) K/uL MPV 12.8 H 12.5 H 12.9 H (9.4-12.4) fL Immature Gran % (Auto) % Neut % (Auto) % Lymph % (Auto) % [place] % (Auto) % Eos % (Auto) % Baso % (Auto) % Neut # (Auto) (1.40-6.50) K/uL Lymph # (Auto) (1.20-3.40) K/uL [place] # (Auto) (0.11-0.59) K/uL Eos # (Auto) (0.00-0.50) K/uL Baso # (Auto) (0.00-0.20) K/uL Immature Gran # (Auto) (0.01-0.20) K/uL Absolute Nucleated RBC 0.05 0.04 0.03 (0.00-0.12) K/uL Nucleated RBC % (auto) 0.7 0.5 0.3 % Polychromasia Macrocytosis Echinocytes PT 36.4 H 37.0 H 40.3 H (9.0-12.0) Seconds INR 3.8 H 3.8 H 4.2 H (0.9-1.1) VBG pH (7.36-7.41) VBG pCO2 (38-50) mmHg VBG pO2 mmHg VBG HCO3 mmol/L VBG O2 Saturation % VBG Base Excess mEq/L Sodium 145 145 145 (136-145) mmol/L Potassium 3.6 3.5 3.8 (3.5-5.1) mmol/L Chloride 117 H 115 H 115 H (98-107) mmol/L Carbon Dioxide 24 25 24 (21-32) mmol/L Anion Gap 4 5 6 (3-11) BUN 35 H 38 H 38 H (6-23) mg/dl Creatinine 1.09 1.01 0.99 (0.6-1.2) mg/dl Est Cr Clr Drug Dosing 49.0 52.8 53.1 ml/min Est GFR ( Amer) 57.1 62.6 64.2 ml/min Est GFR (Non-Af Amer) 49.3 54.0 55.4 ml/min BUN/Creatinine Ratio 32.1 H 37.6 H 38.4 H (10-20) Glucose 115 H 80 103 H (70-99(Fasting)) mg/dl Calcium 8.8 9.2 8.9 (8.6-10.3) mg/dl Magnesium 1.8 1.9 1.8 (1.7-2.4) mg/dl Iron 74 (35-150) mcg/dl TIBC TNP Unsaturated IBC < 55 L (155-355) mcg/dl Transferrin % Sat TNP Ferritin 1498.0 H (8-388) ng/ml Total Bilirubin 12.0 H 13.4 H 11.9 H (0.2-1.0) mg/dl AST 97 H 100 H 100 H (13-39) U/L ALT 24 20 16 (7-52) U/L Alkaline Phosphatase 130 H 133 H 133 H (34-104) U/L Ammonia < 10.0 L (18-72) umol/L Total Protein 5.0 L 5.5 L 5.3 L (6.0-8.3) gm/dl Albumin 1.9 L 2.3 L 1.8 L (3.4-5.0) gm/dl Globulin 3.1 3.2 3.5 (2.5-4.0) gm/dl Albumin/Globulin Ratio 0.6 L 0.7 L 0.5 L (0.9-2) Vitamin B12 (180-914) pg/ml Folate 18.74 (>5.38) ng/ml TSH (0.300-4.500) uIu/ml Blood Type Antibody Screen Crossmatch 03/30/24 03/29/24 03/29/24 Range/Units 07:44 20:55 11:00 WBC 14.97 H 16.71 H (4.8-10.8) K/ul RBC 2.16 L 2.01 L (4.20-5.40) M/uL Hgb 8.0 L 7.3 L (12.0-16.0) g/dl Hct 24.8 L 22.4 L (37.0-47.0) % MCV 114.8 H 111.4 H (80.0-100.0) fL MCH 37.0 H 36.3 H (25.0-34.0) pg MCHC 32.3 32.6 (32.0-36.0) g/dL RDW Std Deviation 81.9 H 77.3 H (36.4-46.3) fL RDW Coeff of Martinez 19.9 H 19.7 H (11.5-14.5) % Plt Count 64 L 60 L (130-400) K/uL MPV 12.8 H 12.8 H (9.4-12.4) fL Immature Gran % (Auto) % Neut % (Auto) % Lymph % (Auto) % [place] % (Auto) % Eos % (Auto) % Baso % (Auto) % Neut # (Auto) (1.40-6.50) K/uL Lymph # (Auto) (1.20-3.40) K/uL [place] # (Auto) (0.11-0.59) K/uL Eos # (Auto) (0.00-0.50) K/uL Baso # (Auto) (0.00-0.20) K/uL Immature Gran # (Auto) (0.01-0.20) K/uL Absolute Nucleated RBC 0.02 (0.00-0.12) K/uL Nucleated RBC % (auto) 0.1 % Polychromasia Macrocytosis Echinocytes PT 42.5 H 45.5 H (9.0-12.0) Seconds INR 4.5 H 4.8 H (0.9-1.1) VBG pH (7.36-7.41) VBG pCO2 (38-50) mmHg VBG pO2 mmHg VBG HCO3 mmol/L VBG O2 Saturation % VBG Base Excess mEq/L Sodium 142 143 (136-145) mmol/L Potassium 3.8 3.9 (3.5-5.1) mmol/L Chloride 113 H 113 H (98-107) mmol/L Carbon Dioxide 23 25 (21-32) mmol/L Anion Gap 6 5 (3-11) BUN 34 H 33 H (6-23) mg/dl Creatinine 0.97 0.91 (0.6-1.2) mg/dl Est Cr Clr Drug Dosing 54.3 58.1 ml/min Est GFR ( Amer) 65.8 71.0 ml/min Est GFR (Non-Af Amer) 56.7 61.3 ml/min BUN/Creatinine Ratio 35.1 H 36.3 H (10-20) Glucose 102 H 82 (70-99(Fasting)) mg/dl Calcium 8.9 8.9 (8.6-10.3) mg/dl Magnesium 1.6 L (1.7-2.4) mg/dl Iron (35-150) mcg/dl TIBC Unsaturated IBC (155-355) mcg/dl Transferrin % Sat Ferritin (8-388) ng/ml Total Bilirubin 13.2 H 13.4 H (0.2-1.0) mg/dl AST 106 H 96 H (13-39) U/L ALT 11 9 (7-52) U/L Alkaline Phosphatase 131 H 122 H (34-104) U/L Ammonia 14.0 L (18-72) umol/L Total Protein 5.5 L 5.3 L (6.0-8.3) gm/dl Albumin 2.0 L 1.9 L (3.4-5.0) gm/dl Globulin 3.5 3.4 (2.5-4.0) gm/dl Albumin/Globulin Ratio 0.6 L 0.6 L (0.9-2) Vitamin B12 > 1500 H (180-914) pg/ml Folate (>5.38) ng/ml TSH 1.821 (0.300-4.500) uIu/ml Blood Type Antibody Screen Crossmatch 03/28/24 03/28/24 Range/Units 12:25 06:37 WBC 15.06 H (4.8-10.8) K/ul RBC 2.42 L (4.20-5.40) M/uL Hgb 8.7 L (12.0-16.0) g/dl Hct 27.5 L (37.0-47.0) % MCV 113.6 H (80.0-100.0) fL MCH 36.0 H (25.0-34.0) pg MCHC 31.6 L (32.0-36.0) g/dL RDW Std Deviation 80.4 H (36.4-46.3) fL RDW Coeff of Martinez 19.4 H (11.5-14.5) % Plt Count 49 L (130-400) K/uL MPV 12.9 H (9.4-12.4) fL Immature Gran % (Auto) 1.1 % Neut % (Auto) 84.8 % Lymph % (Auto) 6.8 % [place] % (Auto) 6.4 % Eos % (Auto) 0.8 % Baso % (Auto) 0.1 % Neut # (Auto) 12.78 H (1.40-6.50) K/uL Lymph # (Auto) 1.02 L (1.20-3.40) K/uL [place] # (Auto) 0.96 H (0.11-0.59) K/uL Eos # (Auto) 0.12 (0.00-0.50) K/uL Baso # (Auto) 0.02 (0.00-0.20) K/uL Immature Gran # (Auto) 0.16 (0.01-0.20) K/uL Absolute Nucleated RBC (0.00-0.12) K/uL Nucleated RBC % (auto) % Polychromasia 2+ Macrocytosis Present Echinocytes 1+ PT 43.1 H (9.0-12.0) Seconds INR 4.5 H (0.9-1.1) VBG pH 7.40 (7.36-7.41) VBG pCO2 39 (38-50) mmHg VBG pO2 21 mmHg VBG HCO3 24 mmol/L VBG O2 Saturation < 60.0 % VBG Base Excess -0.5 mEq/L Sodium 144 (136-145) mmol/L Potassium 3.7 (3.5-5.1) mmol/L Chloride 112 H (98-107) mmol/L Carbon Dioxide 26 (21-32) mmol/L Anion Gap 6 (3-11) BUN 26 H (6-23) mg/dl Creatinine 0.86 (0.6-1.2) mg/dl Est Cr Clr Drug Dosing 61.5 ml/min Est GFR ( Amer) 76.1 ml/min Est GFR (Non-Af Amer) 65.6 ml/min BUN/Creatinine Ratio 30.2 H (10-20) Glucose 98 (70-99(Fasting)) mg/dl Calcium 9.0 (8.6-10.3) mg/dl Magnesium (1.7-2.4) mg/dl Iron (35-150) mcg/dl TIBC Unsaturated IBC (155-355) mcg/dl Transferrin % Sat Ferritin (8-388) ng/ml Total Bilirubin 12.7 H (0.2-1.0) mg/dl AST 80 H (13-39) U/L ALT 4 L (7-52) U/L Alkaline Phosphatase 131 H (34-104) U/L Ammonia 19.0 (18-72) umol/L Total Protein 5.8 L (6.0-8.3) gm/dl Albumin 2.0 L (3.4-5.0) gm/dl Globulin 3.8 (2.5-4.0) gm/dl Albumin/Globulin Ratio 0.5 L (0.9-2) Vitamin B12 (180-914) pg/ml Folate (>5.38) ng/ml TSH (0.300-4.500) uIu/ml Blood Type Antibody Screen Crossmatch Diagnostic Findings Abdomen/Pelvis CT 03/16/24 07:[address] WITH IV CONTRAST CT DOSE: HISTORY: Trauma TECHNIQUE: Multiaxial CT images of the abdomen and pelvis were performed following the use of intravenous contrast. A dose lowering technique was utilized adhering to the principles of ALARA. COMPARISON STUDY: Abdomen and pelvis CT 07/14/2020. FINDINGS: The lung bases will be reported on the same day chest CT. There are trace bilateral pleural effusions. No pneumoperitoneum. No pneumatosis. Age- indeterminate mild superior endplate compression deformities from T11 through L1. No additional fractures within the abdomen or pelvis. Moderate body wall edema. Thickening and hypodensity within the left posterior lateral abdominal wall musculature has improved may represent an old hematoma. This is best seen on image 99. Cirrhotic liver again noted. No hepatic masses. The spleen is normal in size. Trace perisplenic ascites is noted. Punctate calcification within the main portal vein consistent with a small focus of chronic thrombus. Otherwise, the main portal vein is patent. Splenic varicosities with a splenorenal shunt is again noted consistent with portal hypertension. No gallbladder wall thickening. There are multiple gallstones identified. There is a 2 mm stone within the proximal common bile duct/cystic duct on image 117. This is nonobstructing. The common bile duct is normal in caliber. The pancreas and adrenal glands are unremarkable. Moderate cortical renal thinning. No hydronephrosis. No retroperitoneal hematoma or lymphadenopathy. Normal caliber abdominal aorta. No pelvic lymphadenopathy. There is trace pelvic free fluid. The bladder is decompressed. Prior hysterectomy. Colonic diverticulosis. No evidence for acute diverticulitis. No bowel wall thickening or obstruction. No rmal appendix. IMPRESSION: 1. Age-indeterminate mild superior endplate compression deformities from T11 through L1. 2. Thickening and hypodensity/edema within the left posterior lateral abdominal wall musculature. This has improved may represent an old intramuscular hematoma. An acute soft tissue contusion is not excluded. 3. Cirrhotic liver again noted. 4. Cholelithiasis. No gallbladder wall thickening. There is also a punctate nonobstructing stone within the cystic duct/proximal common bile duct. 5. Additional findings as described above. ACT 112: Negative or not required by law. Electronically signed by: Dl Bey M.D. 03/16/2024 8:[address] 03/16/24 07:[address] DOSE: HISTORY: Trauma TECHNIQUE: Multiaxial CT images of the cervical spine were performed and reformatted in the sagittal and coronal plane without the use of contrast. A dose lowering technique was utilized adhering to the principles of ALARA. COMPARISON: Cervical spine CT 07/13/2021. FINDINGS: No fractures. No subluxation. Prevertebral soft tissues and the C1-C2 interval are intact. No pneumothorax. Moderate to severe degenerative disc disease throughout the cervical spine. IMPRESSION: No fractures within the cervical spine. ACT 112: Negative or not required by law. Electronically signed by: Dl Bey M.D. 03/16/2024 8:[address] 03/16/24 07:[address] WITH CONTRAST CT DOSE: HISTORY: Trauma TECHNIQUE: Multiaxial CT images of the chest were performed following the intravenous administration of contrast. A dose lowering technique was utilized adhering to the principles of ALARA. COMPARISON: Chest CT 07/14/2020. FINDINGS: The central airways are patent. No pneumothorax. There are trace bilateral pleural effusions. Mild dependent changes seen at the lung bases. No focal lung consolidations to suggest a pneumonia. No evidence for pulmonary edema. Stable mild nodularity along the right minor fissure. This is likely benign given the long-term stability. Mild superior endplate compression deformities from T11 through L1. These are technically age indeterminate. No significant paravertebral edema identified this time. No additional fractures within the chest. Abdominal structures will be reported on the same day abdomen and pelvis CT. Normal caliber esophagus. No mediastinal hematoma or lymphadenopathy. The heart is mildly enlarged. No pericardial effusion. Normal caliber thoracic aorta with no evidence for a dissection. The main pulmonary ar teries are patent. Moderate coronary artery calcifications are noted. IMPRESSION: 1. Age-indeterminate mild superior endplate compression deformities from T11 through L1. No associated retropulsion. 2. Mild cardiomegaly. 3. Trace bilateral pleural effusions. 4. Additional findings as described above. ACT 112: Negative or not required by law. Electronically signed by: Dl Bey M.D. 03/16/2024 8:[address] 03/16/24 07:13 CT facial bones wo con CLINICAL HISTORY: 78 years-old Female presenting with Trauma. Acute facial trauma COMPARISON STUDY: CT head and cervical spine studies of same day, head CT 07/13/2021 TECHNIQUE: High-resolution CT scan of the facial bones is performed. Images are reviewed in the axial, sagittal, and coronal planes. IV contrast was not administered for this examination. A dose lowering technique was utilized adhering to the principles of ALARA. FINDINGS: There is no evidence of facial bone fracture. The bony orbits are intact and the orbital contents are within normal limits. The zygomatic arches, nasal bones, and pterygoid plates are preserved. The maxilla and mandible are intact. The paranasal sinuses and mastoid air cells are clear. The imaged calvarium and upper cervical spine are within normal limits. Partially imaged brain parenchyma is within normal limits. Hyperdense left globe is new from prior. IMPRESSION: 1. No acute facial bone fracture. 2. Hyperdense left globe, new from the 2021 comparison. ACT 112: Negative or not required by law. The above report was generated using voice recognition software. It may contain grammatical, syntax or spelling errors. Electronically signed by: Johny Fischer M.D. 03/16/2024 8:[address] 03/16/24 07:13 CT head/brain wo con CLINICAL HISTORY: 78 years-old Female with Trauma. TECHNIQUE: Multiple axial CT images of the head were obtained without contrast. A dose lowering technique was utilized adhering to the principles of ALARA. COMPARISON: 07/13/2021. FINDINGS: No acute intracranial hemorrhage, midline shift, intracranial mass, hydrocephalus, territorial ischemia or abnormal extra-axial collection. Age- related involutional changes. White matter hypodensities suggest chronic microvascular ischemic disease. Cerebral vascular calcifications. The study is motion degraded. The calvarium is intact. The paranasal sinuses, mastoid air cells, and middle ear cavities are clear. Hyperdense left globe is new from prior. IMPRESSION: 1. No acute intracranial abnormality or calvarial fracture. 2. Hyperdense left globe is new from the 2021 study. ACT 112: Negative or not required by law. The above report was generated using voice recognition software. It may contain grammatical, syntax or spelling errors. Electronically signed by: Johny Fischer M.D. 03/16/2024 8:[address] 03/16/24 07:13 CT lumbar spine w con CT DOSE: 3913.67 mGy.cm CLINICAL HISTORY: Trauma - c/o LBP TECHNIQUE: Multiaxial CT images of the lumbar spine were performed following the intravenous administration of contrast and reformatted in the sagittal and coronal planes. A dose lowering technique was utilized adhering to the principles of ALARA. COMPARISON STUDY: None. FINDINGS: Age-indeterminate mild superior endplate compression deformity at T12 and L1. No associated retropulsion. No subluxation. [id number] degenerative changes within the lumbar spine. The sacrum is intact. IMPRESSION: Age-indeterminate mild superior endplate compression deformities at T12 and L1. ACT 112: Negative or not required by law. Electronically signed by: Dl Bey M.D. 03/16/2024 8:[address] 03/16/24 07:13 CT thoracic spine w con HISTORY: 78 years-old Female Trauma acute back pain status post trauma COMPARISON: CT chest and lumbar spine studies of same day, CT abdomen and pelvis 07/14/2020 TECHNIQUE: Multiple axial CT images of the thoracic spine were obtained with IV contrast. A dose lowering technique was used consistent with the principals of ALARA. FINDINGS: Veku-ad-eizbqaba multilevel vertebral interspace narrowing and spondylotic spurring with moderate facet arthrosis. The visualized appearance of the bones. Mild age-indeterminate anterosuperior compression deformities at T11-L1 which are new/progressed from the 2020 exam. No retropulsion or paravertebral edema. Suboptimal evaluation of the central canal and neural foramen by CT technique. Mild mid thoracic dextroscoliosis. No acute displaced rib fracture seen. Trace pleural effusions. Please refer to the chest CT of same day for discussion of the intrathoracic findings. Right perinephric edema. IMPRESSION: Mild age-indeterminate T11-L1 compression deformities without retropulsion or paravertebral edema. These are new from the 2020 comparison. ACT 112: Negative or not required by law. The above report was generated using voice recognition software. It may contain grammatical, syntax or spelling errors. Electronically signed by: Johny Fischer M.D. 03/16/2024 8:48 AM Foot X-Ray 03/16/24 08:09 LEFT FOOT 3 VIEWS HISTORY: L foot ecchymosis COMPARISON: None. FINDINGS: Soft tissue swelling within the left forefoot. Mildly angulated transverse fractures of the necks of the second through fourth metatarsals. These demonstrate mild lateral angulation. No dislocation. No intra-articular extension. The Lisfranc joint is intact. The bones are osteopenic. Mild degenerative changes within the left foot. Plantar heel spur is noted. No radiopaque foreign bodies. IMPRESSION: Mildly angulated transverse fractures at the necks of the second through fourth metatarsals. ACT 112: Negative or not required by law. Electronically signed by: Dl Bey M.D. 03/16/2024 9:[address] 03/19/24 09:53 CT head/brain wo con CLINICAL HISTORY: ams, on blood thinner Technique: Contiguous axial CT images of the head were acquired from the base of the skull to the vertex without intravenous contrast administration. Images were viewed in brain, subdural and bone windows. Automated dose lowering techniques and/or adjustment according to patient size were utilized for this exam. Comparison: Comparison is made to CT head 03/16/2024 Findings: Areas of decreased attenuation are present in the periventricular and subcortical white matter bilaterally consistent with small vessel ischemic disease. Generalized cerebral atrophy with commensurate enlargement of the ventricles, sulci, and cisterns is also present. There is no acute intracranial hemorrhage or evidence of acute territorial infarction. No shift of the midline structures, mass effect, or extra-axial abnormalities are shown. Atherosclerotic calcifications are present in the intracranial segments of the i nternal carotid arteries. Imaged portions of the paranasal sinuses and mastoid air cells are clear. Hyperdense left lobe is unchanged. There are no acute fractures of the calvaria or scalp swelling. Impression: 1. No acute abnormality and in particular no evidence of fracture or intracranial hemorrhage. 2. Hyperdense left globe is unchanged. ACT 112: Negative or not required by law. Electronically signed by: Mikel Hairston M.D. 03/19/2024 10:50 AM Brain MRI 03/19/24 13:56 MR brain wo con CLINICAL HISTORY: syncope TECHNIQUE: Multiplanar and multisequence MR images of the brain were obtained without intravenous contrast. Comparison: Comparison is made to CT head for 03/30/2024 FINDINGS: No abnormal restricted diffusion is identified. Foci of T2 and FLAIR hyperintensity are noted in the paraventricular areas consistent with chronic small vessel ischemic disease. Ex vacuo ventriculomegaly and sulcal enlargement is noted compatible with diffuse volume loss. No mass is seen. There is no mass effect or midline shift. There is no evidence of acute intraparenchymal hemorrhage. No extra axial fluid collections are seen. The corpus callosum, pituitary gland, and cerebellar tonsils appear grossly unremarkable. Flow voids of the major intracranial arterial vessels are identified. The imaged portions of the paranasal sinuses, mastoid air cells, and orbits are unremarkable apart from redemonstration of left lobe hyperdensity. IMPRESSION: Chronic volume loss and age related white matter changes without evidence of acute abnormality. ACT 112: Negative or not required by law. Electronically signed by: Mikel Hairston M.D. 03/19/2024 7:47 PM Lumbar Spine MRI 03/21/24 00:10 Exam(s): MRI L SPINE Without Contrast EXAM: MR Lumbar Spine Without Intravenous Contrast CLINICAL HISTORY: Reason for exam: fall/ lumbar fracture, syncope. TECHNIQUE: Magnetic resonance images of the lumbar spine without intravenous contrast in multiple planes. COMPARISON: Prior CT scan lumbar spine from March 16, 2024. FINDINGS: Vertebrae: There are 5 lumbar the vertebral bodies with a mild dextroscoliosis and shallow lumbar lordosis. There is normal vertebral body height and alignment. There are multiple small Schmorl's nodes. The bone marrow signal is heterogeneous with reactive endplate changes. There is narrowing of the entire lumbar spinal canal secondary to congenitally short pedicles. There is mild wedging of the T11 and T12 vertebral bodies, which is likely physiologic. No acute fracture. Spinal cord: The conus is normal size, shape and signal characteristics, terminating at L1-L2. Soft tissues: Advanced atrophy of the iliopsoas, paraspinous intraspinous musculature. The aorta and IVC flow voids are intact. There is heterogeneous T1 bright signal within the kidneys, which may represent artifact. There is moderate edema of the subcutaneous fat overlying the lumbar spine. DISCS/SPINAL CANAL/NEURAL FORAMINA: L1-L2: There is mild disc degeneration with annular disc bulge flattening the ventral thecal sac with disc extending to the right neural foramen without evidence of impingement or significant stenosis. L2-L3: Moderate disc degeneration with annular disc bulge causing a mild subarticular recess stenosis with superimposed congenitally short pedicles causing a moderately severe spinal canal stenosis with thecal sac measuring 0.53 cm. There is disc extending to the neural foramina without evidence of impingement or significant stenosis. L3-L4: Moderate disc degeneration with annular disc bulge causing a mild subarticular recess stenosis with superimposed congenitally short pedicles and ligamentum flavum laxity causing a severe spinal canal stenosis with thecal sac area measures 0.32 cm. There is disc extending to the neural foramina causing a mild right and moderate left stenosis with mild impingement of the left L3 nerve root ganglion. L4-L5: Moderate disc degeneration with annular disc bulge causing a mild right and severe left subarticular recess stenosis with impingement of the transiting left L5 nerve root. There is superimposed congenitally short pedicles and facet joint arthropathy causing a critical spinal canal stenosis with thecal sac area measuring 0.22 cm. There is disc and osteophyte extending to the neural foramina causing a moderate bilateral stenosis with mild impingement of the L4 nerve or ganglia. L5-S1: Moderate disc degeneration with annular disc bulge asymmetric to the right causing a severe right subarticular recess stenosis with impingement of the transiting right S1 nerve root. There is disc extending to the neural foramina causing a moderate right stenosis with mild impingement of the L5 nerve or ganglia. IMPRESSION: 1. Moderate disc degeneration at L2-3, L3-4, L4-5, L5-S1 and mild disc degeneration at L1-L2 with annular disc bulging flattening the ventral thecal sac and causing a mild subarticular recess stenosis at L2-3, L3-4, mild right and severe left L4-5 and severe right L5-S1 subarticular recess stenosis with impingement of the transiting left L5 and right S1 nerve roots. 2. There is a critical spinal canal stenosis at L4-5, severe stenosis at L3-4 and moderately severe stenosis at L2-3 with a congenitally narrow spinal canal. 3. There is mild right and moderate left L3-4, moderate bilateral L4-5, and moderate right L5-S1 neural foraminal stenosis with impingement of the left L3, bilateral L4 and right L5 nerve or ganglia. 4. No evidence of fracture, infection, tumor or arachnoiditis. Electronically signed by: Krupa Perez MD 03/21/24 03:18 AM Thoracic Spine MRI 03/21/24 00:10 Exam(s): MRI T SPINE Without Contrast EXAM: MR Thoracic Spine Without Intravenous Contrast CLINICAL HISTORY: Reason for exam: fall/ thoracic fracture, syncope. TECHNIQUE: Magnetic resonance images of the thoracic spine without intravenous contrast in multiple planes. COMPARISON: Prior CT scan of the thoracic spine from March 16, 2024. FINDINGS: Vertebrae: There are 12 thoracic type vertebral bodies with a mild reversed S-shaped scoliosis and normal thoracic kyphosis. There is mild wedging of the T12 vertebral body, which is likely physiologic. Otherwise, there is normal vertebral body height and alignment. The bone marrow signal is heterogeneous with reactive endplate changes and areas of focal fat. There is loss of normal T1 bright bone marrow signal. No acute fracture. Discs/spinal canal/neural foramina: No acute findings. Multilevel degenerative disc disease with annular disc bulges flattening the ventral thecal sac. No spinal canal stenosis. Spinal cord: Unremarkable. Normal signal. Soft tissues: Unremarkable. IMPRESSION: No evidence of acute thoracic spine pathology. Electronically signed by: Krupa Perez MD 03/21/24 03:25 AM Cholangiopancreatography MRI 03/21/24 07:48 MR MRCP CLINICAL HISTORY: rule out cbd stone TECHNIQUE: Multiplanar multisequence MR images of the abdomen were obtained, as per MRCP protocol. . COMPARISON: Comparison is made to MRCP 02/23/2008 FINDINGS: Exam is limited by patient motion. Lower chest: No acute abnormality Liver: Nodular contour of the liver is seen compatible with cirrhosis. Gallbladder and biliary tree: Cholelithiasis is seen without evidence of cholecystitis. Common bile duct measures up to 7 mm, normal for age. No filling defect is seen in the common bile duct to suggest obstructive stone. Pancreas: Unremarkable, no focal lesions. Spleen: Unremarkable. Adrenals: Unremarkable. Kidneys and ureters: Unremarkable. Bowel: Unremarkable. Lymph nodes Retroperitoneal: Unremarkable. Mesenteric: Unremarkable. Peritoneum: Normal Vessels: Unremarkable. Abdominal wall: Unremarkable. Bones: Degenerative changes in the visualized spine. IMPRESSION: 1. Cholelithiasis without cholecystitis or common bile duct stone. 2. Cirrhosis. ACT 112: Negative or not required by law. Electronically signed by: Mikel Hairston M.D. 03/21/2024 1:03 PM Chest X-Ray 03/28/24 14:44 XR chest 1V portable HISTORY: Altered Mental Status COMPARISON: Chest CT 03/16/2024. FINDINGS: There are low lung volumes. No pneumothorax. No pleural effusions. The heart is mildly enlarged. Trace bilateral pleural effusions are again noted. Bibasilar densities favor dependent changes. The upper lung zones are clear. Mild central pulmonary vascular congestion without overt edema. No acute fractures. IMPRESSION: Cardiomegaly with mild congestive change and trace bilateral pleural effusions. ACT 112: Negative or not required by law. Electronically signed by: Dl Bey M.D. 03/28/2024 3:[address] 03/28/24 14:45 CT OF THE HEAD WITHOUT CONTRAST CLINICAL HISTORY: Altered mental status. COMPARISON STUDY: Head CT and MRI of the brain March 19, 2024. CT DOSE: 547.75 mGy.cm TECHNIQUE: Helical axial images of the head were obtained without IV contrast. Automated exposure control was utilized for the study. A dose lowering technique was utilized adhering to the principles of ALARA. FINDINGS: No acute intracranial hemorrhage, midline shift or mass effect is present. The ventricular system is stable. White matter hypodensities are unchanged and favor small vessel disease. The basal cisterns are patent. No extra-axial collections are present. There are no findings to suggest acute dural sinus thrombosis or acute territorial infarct. No significant calvarial abnormalities are present. Visualized portions of the sinuses and mastoid air cells are clear. 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 IMPRESSION: No acute intracranial findings. No change in appearance of the brain. ACT 112: Negative or not required by law. Electronically signed by: Giles Brown M.D. 03/28/2024 4:15 PM Abdomen Ultrasound 03/28/24 14:48 abdomen ltd ascites HISTORY: 78 years-old Female ascites COMPARISON: CT abdomen and pelvis 03/16/2024 TECHNIQUE: Multiple real-time sonographic images of the abdomen were obtained assessing grayscale appearance FINDINGS/IMPRESSION: No ascites identified on today's study. ACT 112: Negative or not required by law. The above report was generated using voice recognition software. It may contain grammatical, syntax or spelling errors. Electronically signed by: Johny Fischer M.D. 03/29/2024 7:14 AM Abdomen/Pelvis CT 04/01/24 12:38 CT OF THE ABDOMEN AND PELVIS WITH CONTRAST CLINICAL HISTORY: Anemia, H/O intramuscular hematoma COMPARISON STUDY: CT of the abdomen and pelvis March 16, 2024. MRCP March 21, 2024. TECHNIQUE: Following IV administration of 93 mL of Optiray, axial images of the abdomen and pelvis were obtained from the lung bases to the proximal femurs. Images were reviewed in the axial, sagittal, and coronal planes. IV contrast was administered without complication. Automated exposure control was utilized for the study. A dose lowering technique was utilized adhering to the principles of ALARA. CT DOSE: 1437.43 mGy.cm FINDINGS: No pneumatosis, free air or portal venous gas is present. Body wall edema is suggestive of anasarca. Multiple calcified gallstones within the gallbladder are present. The gallbladder is moderately distended. There is no pericholecystic infiltration. There is no biliary or pancreatic ductal dilatation. The liver is cirrhotic. No hepatic lesions are identified on portal venous phase exam. A small amount of perihepatic ascites is noted. Upper abdominal varices are again noted. Spleen, adrenal glands and kidneys are unremarkable. No hydronephrosis. No evidence for a bowel obstruction. Sigmoid diverticulosis without evidence for acute diverticulitis. Bilateral psoas fluid collections have developed since prior exam. Right psoas fluid collection on image 248 of 381 measures 3 x 1.9 cm. Left psoas fluid collection measures 2 x 1.4 cm. There is asymmetric enlargement with stranding adjacent to the left iliopsoas muscle which contains a 1.4 x 1.3 cm fluid collection. There is also asymmetric enlargement of the left iliacus muscle. Slight irregularity of the superior endplate of L5 has developed since prior examination. IMPRESSION: 1. Interval development of fluid collections within the bilateral psoas muscles right larger than left. In addition, asymmetric enlargement with stranding adjacent to the left iliopsoas and iliacus muscles with a small iliopsoas fluid collection. The findings raise the possibility of multifocal abscesses, possibly related to L4-L5 discitis/osteomyelitis. Lumbar spine MRI with and without contrast could be obtained for further evaluation. Although less likely, subacute to chronic intramuscular hematomas could appear similar. 2. Cirrhosis with a small amount of perihepatic ascites. 3. Anasarca. 4. Cholelithiasis with moderate gallbladder distention. No pericholecystic infiltration. If right upper quadrant pain, ultrasound is recommended. ACT 112: Negative or not required by law. Electronically signed by: Giles Brown M.D. 04/01/2024 3:04 PM Lumbar Spine MRI 04/02/24 00:00 CR Exam(s): MRI L SPINE W/WO Contrast IV Amt: 9.5cc gadavist EXAM: MR Lumbar Spine Without and With Intravenous Contrast CLINICAL HISTORY: Reason for exam: rule out discitis/osteomyelitis. TECHNIQUE: Magnetic resonance images of the lumbar spine without and with intravenous contrast in multiple planes. CONTRAST: Patient received 9.5cc gadavist of IV contrast COMPARISON: Prior MRI of the lumbar spine from March 20, 2024. FINDINGS: This study is limited secondary to motion artifact. Vertebrae: There are 5 lumbar type vertebral bodies with a normal lumbar lordosis. Mild to moderate disc degeneration with annular disc bulging find a ventral thecal sac. Congenitally narrow spinal canal. The bone marrow signal is heterogeneous with erosive endplate changes and mild bone marrow edema at L4-5. There is increased disc signal at L4-5. No acute fracture. Spinal cord: Unremarkable. Normal signal. No abnormal enhancement. Soft tissues: Extensive prevertebral soft tissue swelling extending from C4-C5 with phlegmon/abscesses within the psoas muscles and left iliacus muscle. Edema and increased enhancement of the paraspinous muscles, left greater than right. IMPRESSION: Findings concerning for acute discovertebral osteomyelitis at L4-5 with extensive prevertebral phlegmon/abscess involving the bilateral psoas muscles and left iliacus muscle. No evidence of epidural abscess. Communications: Verify Receipt Electronically signed by: Krupa Perez MD 04/02/24 03:15 AM PG Care Time/CCT Total # of Minutes Spent Total Time Spent with Patient: Total time spent is greater than 50% in coordination of care (as documented) at patient's floor/unit and/or counseling patient: I spent 130 minutes overall addressing this case: 25 min in medical data review/discussion with referring provider(s) and/or preparation for the visit 25 min in direct interaction with the patient/exam 50 min in Advance Care Planning/Goals of Care discussions as detailed above in note (must be >16min) 15 min in subsequent review and synthesis of assessment and plan 15 min communicating with other providers regarding the patient's case: Advanced Care Planning 63227 Advanced Care Planning 30 Min 95932 Advanced Care Planning Additional 30 [place] [address] IN/OBS CONSULT LVL 5,80M (25 - SIGNIFICANT, SEPARATELY IDENTIFIABLE ) Patient Type New Medical Decision Making High Complexity Diagnoses Agitation R45.1 Wernicke encephalopathy E51.2 Altered mental status R41.82 Weakness generalized R53.1 Discussion about advance care planning held with family member Z71.0 Palliative care by specialist Z51.5 Additional Codes Advanced Care Planning - 31802 Advanced Care Planning 30 Min: 02161 Advanced Care Planning 30 Min ([id number]) Advanced Care Planning - 55716 Advanced Care Planning Additional 30 Min: 55325 Advanced Care Planning Additional 30 Min ([id number])
[2024-04-04 07:58] LABS: Hematocrit (blood only) 25.4 % (37.0-47.0); Hemoglobin 8.2 g/dl (12.0-16.0); Mean Corpuscular Hemoglobin 35.3 pg (25.0-34.0); Mean Corpuscular Hgb Conc 32.3 g/dL (32.0-36.0); Mean Corpuscular Volume 109.5 fL (80.0-100.0); Mean Platelet Volume 12.6 fL (9.4-12.4); Nucleated RBC # (auto) 0.04 K/uL (0.00-0.12); Nucleated RBC % (auto) 0.4 %; Platelet Count 47 K/uL (130-400); RDW Coefficient of Variation 26.4 % (11.5-14.5); RDW Standard Deviation 103.3 fL (36.4-46.3); Red Blood Count 2.32 M/uL (4.20-5.40); White Blood Count 9.14 K/ul (4.8-10.8)
[2024-04-04 08:13] LABS: Albumin Globulin Ratio 0.6 (0.9-2); Albumin Level 1.8 gm/dl (3.4-5.0); BUN Creatinine Ratio 30.2 (10-20); Bilirubin,Total 12.1 mg/dl (0.2-1.0); Calcium 8.7 mg/dl (8.6-10.3); Creatinine Clr Calc Pharmacy 50.9 ml/min; Est GFR (African American) 59.1 ml/min; Globulin 3.2 gm/dl (2.5-4.0); Potassium 3.9 mmol/L (3.5-5.1)
[2024-04-04 08:27] LABS: INR 2.3 (0.9-1.1)
--- NOTE | 2024-04-04 14:48 | Hospitalist Progress Note ---
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 She was found by her granddaughter incontinent of stool and urine on the day of presentation. She is being managed for the following: Severe Sepsis POA Secondary to UTI Lactate levels trended down UTI Klebsiella bacteremia --MRCP:Cholelithiasis without cholecystitis or common bile duct stone. Cirrhosis. --Blood cultures grew Klebsiella -- Repeat blood culture negative -- Urine culture grew E. coli -- Repeat urine culture 3 types of organisms -- Received ertapenem>> transition to cefazolin--completed 7-day antibiotic course -- Appreciate ID input -- Repeat blood cultures negative to date --No ascites on ultrasound Continue current management Acute discovertebral osteomyelitis L4-L5 Extensive prevertebral phlegmon/abscess of b/l psoas muscles, left iliac muscle --Lumbar MRI on 04/02:Findings concerning for acute discovertebral osteomyelitis at L4-5 with extensive prevertebral phlegmon/abscess involving the bilateral psoas muscles and left iliacus muscle. No evidence of epidural abscess. --Repeat Blood cx- NGTD -- Started on daptomycin, cefepime -- [facility] consulted- recommend infectious disease consultation. No surgical intervention at this point. -- Consulted ID; marketing secretary informed of re-consult on 04/04 -- Palliative care consulted; family meeting on 04/03; want to continue iv antibiotics and possible rehab placement Acute metabolic encephalopathy: Likely multifactorial Fall Patient presenting from home after being found by her family confused and incontinent of stool and urine. Seems like patient was likely down for about 2 days. In the ED, found to have T11-L1 compression fractures and left 2nd through 4th metatarsal fractures Admitting imaging: CTAP: age-indeterminate mild superior endplate compression deformities from T11-L1. Cirrhotic liver noted. Cholelithiasis, no GB wall thickening. Punctate nonobstructing stone within the cystic duct/proximal CBD. C-spine CT/head CT/Face CT:: No acute fracture T-spine CT/L-spine CT/Chest CT: T11-L1 fracture as above. Left foot x-ray: Mildly angulated transverse fracture at the necks of the 2nd through 4th metatarsals MRI Brain on 03/19- no acute abnormality reported MRI thoracic spine- no acute findings MRI lumbar spine on 03/21/2024- no evidence of fracture; refer to report for additional details. --Echo: EF 60 to 65%, mild concentric LVH, left ventricular systolic function normal. --Normal TSH --EEG:This is an abnormal routine EEG in a patient with altered mentation due to generalized background slowing suggest of a non specific encephalopathy. No epileptiform activity or epileptiform discharges are seen. Fall precautions PT OT as able Reorient frequently to minimize delirium Alcoholic cirrhosis: Alcohol use disorder Likely hepatic encephalopathy due to cirrhosis --Last EGD 2012 - no esophageal or gastric varices, mild portal gastropathy. Admitting LFT elevated --Recommend patient cease all alcohol use. Low-sodium diet. Avoid hepatotoxic's. --Avoid hepatotoxic agents as able Reorient frequently to minimize any delirium Continue lactulose to have 3-4 good bowel movements per day Also started on rifaximin Needs outpatient EGD, colonoscopy Needs follow-up with hepatology as outpatient Monitor LFTs Updated patient's family on multiple occasions GI on board Titrate lactulose for 2-3 good bowel movements per day Hypernatremia recurrent due to poor oral intake IV fluids as needed Monitor volume status, sodium levels Hypomagnesemia Replete and monitor Demand ischemia: trop mildly elevated Likely demand ischemia 2/2 acute illness. Portal vein thrombosis: Coumadin on hold INR therpeutic Compression fracture of body of thoracic vertebra: Compression fracture of lumbar vertebra: CT shows compression fractures T11-L1 MRI thoracic and lumbar above Orthopedic spine evaluated, no brace, She should lift no more than 5 pounds. C/w pain Mx. P/OT. Metatarsal fracture: Left foot XR shows: Mildly angulated transverse fractures at the necks of the second through fourth metatarsals. Ortho evaled, no sx Ix, recommends post op shoe for weight bearing x 1 month. no f/u needed per ortho. --Management as above Acute on chronic anemia Subacute to chronic intramuscular hematomas H/O abdominal wall hematoma S/P PRBCs Monitor H&H and transfuse as needed DVT Px: Elevated INR Hold Coumadin Code Status DNI/DNR Disposition Patient has multiple medical issues including acute osteomyelitis of L4-L5; infectious disease evaluation pending. She is requiring IV antibiotics. Time spent evaluating patient, direct bedside care, chart review, placing orders, interpretation of diagnostic studies, discussion with consultants, patient, and family members, as well as other required patient management activities is 50 minutes Please note the above document was generated using voice recognition software. It may contain grammatical, syntax or spelling errors. Any formal questions or concerns about the content, text or information contained within the body of this dictation should be directly addressed to the provider for clarification Admission and Anticipated Discharge Date Admission Date: March 16, 2024 Subjective Patient seen and examined at bedside. She is lying on the bed comfortably; not in distress She is oriented to self. No significant events overnight Review of Systems Review of Systems: Unobtainable due to reduced consciousness Physical Exam Physical Exam: General Appearance:Obese, no apparent distress, awakeable by voice. Respiratory/Chest: Normal breath sounds, CTA, No accessory muscle use Cardiovascular: S1, S2, No murmur. Abdomen/GI:Soft, Non tender, +Protuberant, Bowel sounds present Back: Tenderness on lower back, no erythema or swelling or warmth. Extremities/Musculoskeletal:normal inspection, 2+ble edema, L foot Echymosis Neurologic/Psych:AAOXself, moves all extremities. follow simple commands Skin: normal color, warm Results & Data Results & Data Vital Signs (Past 12 Hours) Vital Signs Temp Pulse Pulse Resp BP Pulse Ox O2 Del Method 04/04/24 11:09 36.3 C L 70 16 117/73 96 Room Air 04/04/24 09:49 71 04/04/24 07:39 36.4 C L 71 18 120/75 97 Room Air 04/04/24 03:30 36.3 C L 73 18 116/57 L 95 Room Air
[2024-04-05] MEDS: MICONAZOLE NITRATE POWDER 85 GM EXT PRN (05:16)
[2024-04-05] MEDS ORDERED: HYDROmorphone INJ 0.5 MG/0.5 ML SYR IV PRN (07:47)
[2024-04-05 08:36] LABS: Basophils # (auto) 0.02 K/uL (0.00-0.20); Basophils % (auto) 0.2 %; Eosinophils # (auto) 0.27 K/uL (0.00-0.50); Eosinophils % (auto) 2.4 %; Hematocrit (blood only) 26.8 % (37.0-47.0); Hemoglobin 8.9 g/dl (12.0-16.0); Immature Granulocytes # (auto) 0.29 K/uL (0.01-0.20); Immature Granulocytes % (auto) 2.6 %; Lymphocytes # (auto) 0.88 K/uL (1.20-3.40); Lymphocytes % (auto) 7.8 %; Mean Corpuscular Hgb Conc 33.2 g/dL (32.0-36.0); Mean Corpuscular Volume 108.5 fL (80.0-100.0); Mean Platelet Volume 12.5 fL (9.4-12.4); Monocytes # (auto) 1.18 K/uL (0.11-0.59); Monocytes % (auto) 10.4 %; Neutrophils # (auto) 8.71 K/uL (1.40-6.50); Neutrophils % (auto) 76.6 %; Nucleated RBC # (auto) 0.05 K/uL (0.00-0.12); Nucleated RBC % (auto) 0.4 %; Platelet Count 48 K/uL (130-400); RDW Coefficient of Variation 24.8 % (11.5-14.5); RDW Standard Deviation 96.1 fL (36.4-46.3); Red Blood Count 2.47 M/uL (4.20-5.40); White Blood Count 11.35 K/ul (4.8-10.8)
[2024-04-05 09:00] LABS: Prothrombin Time 20.8 Seconds (9.0-12.0)
[2024-04-05 09:04] LABS: Acanthocytes 2+; Anisocytosis Present; Echinocytes 1+; Macrocytosis Present; Polychromasia 1+
[2024-04-05 10:11] LABS: Bilirubin,Total 12.5 mg/dl (0.2-1.0); Calcium 8.8 mg/dl (8.6-10.3); Potassium 3.8 mmol/L (3.5-5.1)
[2024-04-05 10:17] LABS: Albumin Globulin Ratio 0.6 (0.9-2); BUN Creatinine Ratio 28.2 (10-20); Creatinine Clr Calc Pharmacy 52.6 ml/min; Est GFR (African American) 61.2 ml/min; Est GFR (Non-African American) 52.8 ml/min; Globulin 3.6 gm/dl (2.5-4.0); Total Protein 5.6 gm/dl (6.0-8.3)
--- NOTE | 2024-04-05 10:51 | Communication Note ---
Date of Service: April 05, 2024 Ms. Portillo is a 78-year-old woman with medical history of alcoholic liver cirrhosis, portal vein thrombosis, and HTN who was admitted to [facility] on 03/16/2024 after a fall at her home. At that time, CT abdomen and pelvis did show cholelithiasis which was very small which was an nonobstructive stone within the cystic duct and proximal Bile duct. MRCP was further performed which showed cholelithiasis without cholecystitis or common bile duct stone. Her urine culture at that time grew E coli only. She also had a chronic low back pain and an MRI of the thoracolumbar spine was performed which showed moderate disc degeneration in the lower lumbar vertebrae with severe spinal stenosis but no evidence of infection. Based on susceptibilities, I recommended that the patient be placed on cefazolin for a total duration of 7 days to treat uncomplicated bacteremia. The patient had a long hospital stay because of persistent encephalopathy which was suspected to be due to liver cirrhosis. Towards the end of her hospital stay, her lower back pain was getting worse and another MRI of the thoracolumbar spine was performed which showed acute distal vertebral osteomyelitis of L4-L5 with extensive prevertebral phlegmon/abscess as well as bilateral psoas muscle and left iliacus muscle abscesses which were very small to aspirate. We were contacted again today for further recommendations and to help guide antibiotic treatment. Microbiology at [facility]: 03/16: 1 set of blood culture (1 of 2 bottles) growing Klebsiella pneumoniae 03/16: Urine culture growing E coli 03/22: 1 set of blood culture negative 03/28: 1 set of blood culture negative 04/02: 2 sets of blood culture negative Imaging: MRI lumbar spine performed on 04/02 at [facility]: Findings concerning for acute discovertebral osteomyelitis at L4-5 with extensive prevertebral phlegmon/abscess involving the bilateral psoas muscles and left iliacus muscle. No evidence of epidural abscess. CT abdomen pelvis performed on 04/01 at [facility]: 1. Interval development of fluid collections within the bilateral psoas muscles right larger than left. In addition, asymmetric enlargement with stranding adjacent to the left iliopsoas and iliacus muscles with a small iliopsoas fluid collection. The findings raise the possibility of multifocal abscesses, possibly related to L4-L5 discitis/osteomyelitis. Lumbar spine MRI with and without contrast could be obtained for further evaluation. Although less likely, subacute to chronic intramuscular hematomas could appear similar. 2. Cirrhosis with a small amount of perihepatic ascites. 3. Anasarca. 4. Cholelithiasis with moderate gallbladder distention. No pericholecystic infiltration. If right upper quadrant pain, ultrasound is recommended. Impression: (1) Lumbar vertebral osteomyelitis - L4-L5 discitis (2) Bacteremia due to Klebsiella pneumoniae - initially during the admission, no potential source was appreciated; however, towards the end of admission MRI of the spine was suggestive of L4-L5 diskitis/osteomyelitis (3) Hepatic encephalopathy (4) Liver cirrhosis Recommendations: Based on the fact that the patient was bacteremic with Klebsiella on admission, I will have to assume that the L4-L5 diskitis/osteomyelitis is likely secondary to Klebsiella especially that at that time, no potential source was identified for the bacteremia. Spine surgery was consulted at [facility] and there is no plan for any surgical intervention. Also, the prevertebral and psoas abscesses are very small to aspirate. Please discontinue broad-spectrum antibiotics including cefepime and daptomycin and start on IV cefazolin 2 g every 8 hours to be adjusted per kidney function. We will aim for 6 weeks of IV cefazolin via PICC line with a repeat MRI of the spine in 4 weeks from discharge to follow up on the status of the diskitis and surrounding abscesses. FINAL IMPRESSION AND RECOMMENDATIONS: Syndrome Osteomyelitis (lumbar discitis/osteomyelitis) Microbiology Klebsiella pneumoniae Antibiotic Cefazolin 2 g IV Q8 hours (adjust for renal function) End Date May 14, 2024 Vascular access: Remove intravascular access after completion of antibiotics Recommended followup imaging studies: MRI thoracolumbar spine in 4 weeks from discharge LABORATORY MONITORING: Lab Test Frequency End Date BMP CBC with diff Q week May 14, 2024 PROVIDERS: Following ID Physician ID clinic follow-up date Natasha Martinez Within 8-12 weeks
--- NOTE | 2024-04-05 12:07 | Hospitalist Progress Note ---
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 She was found by her granddaughter incontinent of stool and urine on the day of presentation. She is being managed for the following: Severe Sepsis POA UTI Klebsiella bacteremia Acute discovertebral osteomyelitis L4-L5 b/l Psoas Abscess Patient was admitted after mechanical fall. She was found to have Klebsiella bacteremia; underwent treatment with iv cefazolin. Paitiet Underwent workup with MRI of thoracic spine, lumbar spine and brain MRI for altered mental status earlier in the hospitalization; no acute finding were seen. MRCP did not show any concern for cholangitis EEG showed generalized background slowing Patient continued to report lower back pain for which she underwent lumbar MRI on 04/02; found to have acute discovertebral osteomyelitis at L4/L5. CT abdomen and pelvis showed right psoas collection of 3 X 1.9cm, left psoas fluid collection of 2 X 1.4 cm. Discussion was done with infectious disease on 04/05; recommend cefazolin 2 g every 8 hours; until May 14, 2024. Will need repeat MRI of the spine in 4 weeks after discharge. BMP, CBC every week. Need to follow-up with infectious disease in 8 to 12 weeks. Plan of care discussed with patient's granddaughter will communicate it to her family. Alcoholic cirrhosis: Alcohol use disorder Likely hepatic encephalopathy due to cirrhosis --Last EGD 2012 - no esophageal or gastric varices, mild portal gastropathy. Admitting LFT elevated --Recommend patient cease all alcohol use. Low-sodium diet. Avoid hepatotoxic's. --Avoid hepatotoxic agents as able Reorient frequently to minimize any delirium Continue lactulose to have 3-4 good bowel movements per day Also started on rifaximin Needs outpatient EGD, colonoscopy Needs follow-up with hepatology as outpatient Monitor LFTs Updated patient's family on multiple occasions GI on board Titrate lactulose for 2-3 good bowel movements per day Hypernatremia recurrent due to poor oral intake IV fluids as needed Monitor volume status, sodium levels Hypomagnesemia Replete and monitor Demand ischemia: trop mildly elevated Likely demand ischemia 2/2 acute illness. Portal vein thrombosis: Coumadin on hold INR therpeutic Compression fracture of body of thoracic vertebra: Compression fracture of lumbar vertebra: CT shows compression fractures T11-L1 MRI thoracic and lumbar above Orthopedic spine evaluated, no brace, She should lift no more than 5 pounds. C/w pain Mx. P/OT. Metatarsal fracture: Left foot XR shows: Mildly angulated transverse fractures at the necks of the second through fourth metatarsals. Ortho evaled, no sx Ix, recommends post op shoe for weight bearing x 1 month. no f/u needed per ortho. --Management as above Acute on chronic anemia Subacute to chronic intramuscular hematomas H/O abdominal wall hematoma S/P PRBCs Monitor H&H and transfuse as needed DVT Px: Elevated INR Hold Coumadin Code Status DNI/DNR Disposition Patient has multiple medical issues including acute osteomyelitis of L4-L5; monitor mentation. Possible discharge in next few days if mentation improves and patient is more mobile Time spent evaluating patient, direct bedside care, chart review, placing orders, interpretation of diagnostic studies, discussion with consultants, patient, and family members, as well as other required patient management activities is 50 minutes Please note the above document was generated using voice recognition software. It may contain grammatical, syntax or spelling errors. Any formal questions or concerns about the content, text or information contained within the body of this dictation should be directly addressed to the provider for clarification Admission and Anticipated Discharge Date Admission Date: March 16, 2024 Subjective Patient seen and examined at bedside. Her mentation seems to be slightly improved compared to yesterday She is answering question appropriately. Reports some lower back pain. Review of Systems Review of Systems: All systems reviewed & are unremarkable except as noted in Subjective Physical Exam Physical Exam: General Appearance:Obese, no apparent distress, awakeable by voice. Respiratory/Chest: Normal breath sounds, CTA, No accessory muscle use Cardiovascular: S1, S2, No murmur. Abdomen/GI:Soft, Non tender, +Protuberant, Bowel sounds present Back: Tenderness on lower back, no erythema or swelling or warmth. Extremities/Musculoskeletal:normal inspection, 2+ble edema, L foot Echymosis Neurologic/Psych:AAOXself and place, moves all extremities. follow simple commands Skin: normal color, warm Results & Data Results & Data Vital Signs (Past 12 Hours) Vital Signs Temp Pulse Resp BP Pulse Ox O2 Del Method 09/26/24 11:14 36.3 C L 67 19 124/83 98 Room Air 04/05/24 07:49 36.7 C 70 16 132/64 98 Room Air 04/05/24 02:04 36.4 C L 74 18 114/69 95 Room Air
[2024-04-05] MEDS: ceFAZolin 2000MG 2,000 MG/15 ML SYR IV SCH (16:15)
[2024-04-05] MEDS: ACETAMINOPHEN 500 MG TAB PO PRN (22:23)
[2024-04-06 08:01] LABS: Hematocrit (blood only) 29.6 % (37.0-47.0); Hemoglobin 9.3 g/dl (12.0-16.0); Mean Corpuscular Hemoglobin 35.1 pg (25.0-34.0); Mean Corpuscular Hgb Conc 31.4 g/dL (32.0-36.0); Mean Corpuscular Volume 111.7 fL (80.0-100.0); Nucleated RBC # (auto) 0.03 K/uL (0.00-0.12); Nucleated RBC % (auto) 0.3 %; Platelet Count 30 K/uL (130-400); RDW Coefficient of Variation 25.1 % (11.5-14.5); RDW Standard Deviation 100.7 fL (36.4-46.3); Red Blood Count 2.65 M/uL (4.20-5.40); White Blood Count 10.54 K/ul (4.8-10.8)
[2024-04-06 08:15] LABS: INR 2.1 (0.9-1.1); Prothrombin Time 21.4 Seconds (9.0-12.0)
[2024-04-06 08:23] LABS: Anisocytosis Present; Basophils # (auto) 0.02 K/uL (0.00-0.20); Basophils % (auto) 0.2 %; Echinocytes 1+; Eosinophils # (auto) 0.31 K/uL (0.00-0.50); Eosinophils % (auto) 2.9 %; Immature Granulocytes % (auto) 2.8 %; Lymphocytes # (auto) 0.75 K/uL (1.20-3.40); Lymphocytes % (auto) 7.1 %; Macrocytosis Present; Monocytes # (auto) 0.92 K/uL (0.11-0.59); Monocytes % (auto) 8.7 %; Neutrophils # (auto) 8.24 K/uL (1.40-6.50); Neutrophils % (auto) 78.3 %; Polychromasia 1+
[2024-04-06 08:32] LABS: Albumin Level 1.8 gm/dl (3.4-5.0); Bilirubin,Total 11.8 mg/dl (0.2-1.0); Calcium 8.7 mg/dl (8.6-10.3); Potassium 4.1 mmol/L (3.5-5.1)
[2024-04-06 08:38] LABS: Albumin Globulin Ratio 0.5 (0.9-2); BUN Creatinine Ratio 26.2 (10-20); Creatinine Clr Calc Pharmacy 50.9 ml/min; Est GFR (African American) 58.4 ml/min; Est GFR (Non-African American) 50.4 ml/min; Globulin 3.5 gm/dl (2.5-4.0); Total Protein 5.3 gm/dl (6.0-8.3)
--- NOTE | 2024-04-06 13:08 | Hospitalist Progress Note ---
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 She was found by her granddaughter incontinent of stool and urine on the day of presentation. She is being managed for the following: Severe Sepsis POA UTI Klebsiella bacteremia Acute discovertebral osteomyelitis L4-L5 b/l Psoas Abscess Patient was admitted after mechanical fall. She was found to have Klebsiella bacteremia; underwent treatment with iv cefazolin. Paitiet Underwent workup with MRI of thoracic spine, lumbar spine and brain MRI for altered mental status earlier in the hospitalization; no acute finding were seen. MRCP did not show any concern for cholangitis EEG showed generalized background slowing Patient continued to report lower back pain for which she underwent lumbar MRI on 04/02; found to have acute discovertebral osteomyelitis at L4/L5. CT abdomen and pelvis showed right psoas collection of 3 X 1.9cm, left psoas fluid collection of 2 X 1.4 cm. Discussion was done with infectious disease on 04/05; recommend cefazolin 2 g every 8 hours; until May 14, 2024. Will need repeat MRI of the spine in 4 weeks after discharge. BMP, CBC every week. Need to follow-up with infectious disease in 8 to 12 weeks. Plan of care discussed with patient's granddaughter will communicate it to her family. Alcoholic cirrhosis: Alcohol use disorder Likely hepatic encephalopathy due to cirrhosis --Last EGD 2012 - no esophageal or gastric varices, mild portal gastropathy. Admitting LFT elevated --Recommend patient cease all alcohol use. Low-sodium diet. Avoid hepatotoxic's. --Avoid hepatotoxic agents as able Reorient frequently to minimize any delirium Continue lactulose to have 3-4 good bowel movements per day Also started on rifaximin Needs outpatient EGD, colonoscopy Needs follow-up with hepatology as outpatient Monitor LFTs Updated patient's family on multiple occasions GI on board Titrate lactulose for 2-3 good bowel movements per day Hypernatremia recurrent due to poor oral intake IV fluids as needed Monitor volume status, sodium levels Hypomagnesemia Replete and monitor Demand ischemia: trop mildly elevated Likely demand ischemia 2/2 acute illness. Portal vein thrombosis: Coumadin on hold INR therapeutic Compression fracture of body of thoracic vertebra: Compression fracture of lumbar vertebra: CT shows compression fractures T11-L1 MRI thoracic and lumbar above Orthopedic spine evaluated, no brace, She should lift no more than 5 pounds. C/w pain Mx. P/OT. Metatarsal fracture: Left foot XR shows: Mildly angulated transverse fractures at the necks of the second through fourth metatarsals. Ortho evaled, no sx Ix, recommends post op shoe for weight bearing x 1 month. no f/u needed per ortho. --Management as above Acute on chronic anemia Subacute to chronic intramuscular hematomas H/O abdominal wall hematoma S/P PRBCs Monitor H&H and transfuse as needed DVT Px: Elevated INR Hold Coumadin Code Status DNI/DNR Disposition Patient has multiple medical issues including acute osteomyelitis of L4-L5; monitor mentation. Possible discharge in next few days if mentation continues to improves and patient is more mobile Time spent evaluating patient, direct bedside care, chart review, placing orders, interpretation of diagnostic studies, discussion with consultants, patient, and family members, as well as other required patient management activities is 50 minutes Please note the above document was generated using voice recognition software. It may contain grammatical, syntax or spelling errors. Any formal questions or concerns about the content, text or information contained within the body of this dictation should be directly addressed to the provider for clarification Admission and Anticipated Discharge Date Admission Date: March 16, 2024 Subjective Patient seen and examined at bedside. She is sitting up on the bed; not in distress She is awake and oriented to self and place Review of Systems Review of Systems: All systems reviewed & are unremarkable except as noted in Subjective Physical Exam Physical Exam: General Appearance:Obese, no apparent distress, awakeable by voice. Respiratory/Chest: Normal breath sounds, CTA, No accessory muscle use Cardiovascular: S1, S2, No murmur. Abdomen/GI:Soft, Non tender, +Protuberant, Bowel sounds present Back: Tenderness on lower back, no erythema or swelling or warmth. Extremities/Musculoskeletal:normal inspection, 2+ble edema, L foot Echymosis Neurologic/Psych:AAOXself and place, moves all extremities. follow simple commands Skin: normal color, warm Results & Data Results & Data Vital Signs (Past 12 Hours) Vital Signs Temp Pulse Pulse Resp BP BP Pulse Ox 04/06/24 11:22 36.4 C L 70 18 113/69 94 04/06/24 08:00 69 04/06/24 07:56 36.3 C L 67 19 115/73 99 04/06/24 03:16 36.5 C 68 16 122/58 L 99 O2 Del Method 04/06/24 11:22 Room Air 04/06/24 08:00 04/06/24 07:56 Room Air 04/06/24 03:16 Room Air
[2024-04-06] MEDS: FUROSEMIDE INJ 20 MG/2 ML VIAL IV SCH (13:37)
[2024-04-07 06:37] LABS: Basophils # (auto) 0.02 K/uL (0.00-0.20); Basophils % (auto) 0.2 %; Eosinophils # (auto) 0.41 K/uL (0.00-0.50); Eosinophils % (auto) 3.6 %; Hematocrit (blood only) 25.8 % (37.0-47.0); Hemoglobin 8.4 g/dl (12.0-16.0); Immature Granulocytes # (auto) 0.28 K/uL (0.01-0.20); Immature Granulocytes % (auto) 2.5 %; Lymphocytes # (auto) 0.91 K/uL (1.20-3.40); Lymphocytes % (auto) 8.1 %; Mean Corpuscular Hemoglobin 35.6 pg (25.0-34.0); Mean Corpuscular Hgb Conc 32.6 g/dL (32.0-36.0); Mean Corpuscular Volume 109.3 fL (80.0-100.0); Mean Platelet Volume 12.6 fL (9.4-12.4); Monocytes # (auto) 1.37 K/uL (0.11-0.59); Monocytes % (auto) 12.1 %; Neutrophils # (auto) 8.31 K/uL (1.40-6.50); Neutrophils % (auto) 73.5 %; Nucleated RBC # (auto) 0.02 K/uL (0.00-0.12); Nucleated RBC % (auto) 0.2 %; Platelet Count 31 K/uL (130-400); RDW Coefficient of Variation 23.7 % (11.5-14.5); Red Blood Count 2.36 M/uL (4.20-5.40)
[2024-04-07 07:02] LABS: Albumin Globulin Ratio 0.5 (0.9-2); Albumin Level 1.6 gm/dl (3.4-5.0); BUN Creatinine Ratio 29.8 (10-20); Bilirubin,Total 10.1 mg/dl (0.2-1.0); Calcium 8.4 mg/dl (8.6-10.3); Creatinine Clr Calc Pharmacy 58.5 ml/min; Est GFR (African American) 68.3 ml/min; Est GFR (Non-African American) 58.9 ml/min; Globulin 3.4 gm/dl (2.5-4.0); Potassium 3.8 mmol/L (3.5-5.1)
[2024-04-07 07:05] LABS: INR 2.1 (0.9-1.1); Prothrombin Time 21.8 Seconds (9.0-12.0)
[2024-04-07 07:30] LABS: Acanthocytes 2+; Anisocytosis Present; Macrocytosis Present; Polychromasia 2+
--- NOTE | 2024-04-07 09:15 | Hospitalist Progress Note ---
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 She was found by her granddaughter incontinent of stool and urine on the day of presentation. She is being managed for the following: Severe Sepsis POA UTI Klebsiella bacteremia Acute discovertebral osteomyelitis L4-L5 b/l Psoas Abscess Patient was admitted after mechanical fall. She was found to have Klebsiella bacteremia; underwent treatment with iv cefazolin. Paitiet Underwent workup with MRI of thoracic spine, lumbar spine and brain MRI for altered mental status earlier in the hospitalization; no acute finding were seen. MRCP did not show any concern for cholangitis EEG showed generalized background slowing Patient continued to report lower back pain for which she underwent lumbar MRI on 04/02; found to have acute discovertebral osteomyelitis at L4/L5. CT abdomen and pelvis showed right psoas collection of 3 X 1.9cm, left psoas fluid collection of 2 X 1.4 cm. Discussion was done with infectious disease on 04/05; recommend cefazolin 2 g every 8 hours; until May 14, 2024. Will need repeat MRI of the spine in 4 weeks after discharge. BMP, CBC every week. Need to follow-up with infectious disease in 8 to 12 weeks. Plan of care discussed with patient's granddaughter will communicate it to her family. Alcoholic cirrhosis: Alcohol use disorder Likely hepatic encephalopathy due to cirrhosis --Last EGD 2012 - no esophageal or gastric varices, mild portal gastropathy. Admitting LFT elevated --Recommend patient cease all alcohol use. Low-sodium diet. Avoid hepatotoxic's. --Avoid hepatotoxic agents as able Reorient frequently to minimize any delirium Continue lactulose to have 3-4 good bowel movements per day Also started on rifaximin Needs outpatient EGD, colonoscopy Needs follow-up with hepatology as outpatient Monitor LFTs Updated patient's family on multiple occasions GI on board Titrate lactulose for 2-3 good bowel movements per day Started on Lasix ( on 04/06) and spironolactone( on 04/07) as patient has significant pitting edema bilaterally Hypomagnesemia Replete and monitor Demand ischemia: trop mildly elevated Likely demand ischemia 2/2 acute illness. Portal vein thrombosis: Coumadin on hold INR therapeutic Compression fracture of body of thoracic vertebra: Compression fracture of lumbar vertebra: CT shows compression fractures T11-L1 MRI thoracic and lumbar above Orthopedic spine evaluated, no brace, She should lift no more than 5 pounds. C/w pain Mx. P/OT. Metatarsal fracture: Left foot XR shows: Mildly angulated transverse fractures at the necks of the second through fourth metatarsals. Ortho evaled, no sx Ix, recommends post op shoe for weight bearing x 1 month. no f/u needed per ortho. Acute on chronic anemia Subacute to chronic intramuscular hematomas H/O abdominal wall hematoma S/P PRBCs Monitor H&H and transfuse as needed DVT Px: Elevated INR Hold Coumadin Code Status DNI/DNR Disposition Patient has multiple medical issues including acute osteomyelitis of L4-L5; monitor mentation. Possible discharge in next few days if mentation continues to improves and patient is more mobile Time spent evaluating patient, direct bedside care, chart review, placing orders, interpretation of diagnostic studies, discussion with consultants, patient, and family members, as well as other required patient management ac tivities is 50 minutes Please note the above document was generated using voice recognition software. It may contain grammatical, syntax or spelling errors. Any formal questions or concerns about the content, text or information contained within the body of this dictation should be directly addressed to the provider for clarification Admission and Anticipated Discharge Date Admission Date: March 16, 2024 Subjective Patient seen and examined at bedside. She is comfortable; not in distress She is alert oriented to time to place and person No significant events overnight Review of Systems Review of Systems: All systems reviewed & are unremarkable except as noted in Subjective Physical Exam Physical Exam: General Appearance:Obese, no apparent distress, awakeable by voice. Respiratory/Chest: Normal breath sounds, CTA, No accessory muscle use Cardiovascular: S1, S2, No murmur. Abdomen/GI:Soft, Non tender, +Protuberant, Bowel sounds present Back: Tenderness on lower back, no erythema or swelling or warmth. Extremities/Musculoskeletal:normal inspection, 2+ble edema, L foot Echymosis Neurologic/Psych:AAOXself and place, moves all extremities. follow simple commands Skin: normal color, warm Results & Data Results & Data Vital Signs (Past 12 Hours) Vital Signs Temp Pulse Pulse Resp BP Pulse Ox O2 Del Method 04/07/24 07:48 36.4 C L 79 18 112/63 97 Room Air 04/07/24 02:49 36.8 C 76 18 122/70 96 Room Air 04/06/24 23:41 78 04/06/24 23:20 36.6 C 78 18 130/67 97 Room Air
[2024-04-07] MEDS: SPIRONOLACTONE 25 MG TAB PO SCH (11:45)
[2024-04-08 07:33] LABS: Albumin Globulin Ratio 0.5 (0.9-2); Albumin Level 1.7 gm/dl (3.4-5.0); Calcium 8.4 mg/dl (8.6-10.3); Est GFR (African American) 63.4 ml/min; Est GFR (Non-African American) 54.7 ml/min; Globulin 3.6 gm/dl (2.5-4.0); Potassium 3.9 mmol/L (3.5-5.1); Total Protein 5.3 gm/dl (6.0-8.3)
[2024-04-08 08:07] LABS: Acanthocytes 1+; Anisocytosis Present; Basophils # (auto) 0.03 K/uL (0.00-0.20); Basophils % (auto) 0.2 %; Echinocytes 1+; Hemoglobin 8.4 g/dl (12.0-16.0); Immature Granulocytes # (auto) 0.32 K/uL (0.01-0.20); Immature Granulocytes % (auto) 2.4 %; Lymphocytes # (auto) 1.18 K/uL (1.20-3.40); Macrocytosis Present; Mean Corpuscular Hemoglobin 35.4 pg (25.0-34.0); Mean Corpuscular Hgb Conc 32.3 g/dL (32.0-36.0); Mean Corpuscular Volume 109.7 fL (80.0-100.0); Mean Platelet Volume 13.5 fL (9.4-12.4); Monocytes # (auto) 1.41 K/uL (0.11-0.59); Monocytes % (auto) 10.7 %; Neutrophils # (auto) 9.83 K/uL (1.40-6.50); Neutrophils % (auto) 74.7 %; Platelet Count 30 K/uL (130-400); Polychromasia 2+; RDW Coefficient of Variation 23.8 % (11.5-14.5); RDW Standard Deviation 92.6 fL (36.4-46.3); Red Blood Count 2.37 M/uL (4.20-5.40); White Blood Count 13.17 K/ul (4.8-10.8)
--- NOTE | 2024-04-08 10:58 | Hospitalist Progress Note ---
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 She was found by her granddaughter incontinent of stool and urine on the day of presentation. She is being managed for the following: Severe Sepsis POA UTI Klebsiella bacteremia Acute discovertebral osteomyelitis L4-L5 b/l Psoas Abscess Patient was admitted after mechanical fall. She was found to have Klebsiella bacteremia; underwent treatment with iv cefazolin. Paitiet Underwent workup with MRI of thoracic spine, lumbar spine and brain MRI for altered mental status earlier in the hospitalization; no acute finding were seen. MRCP did not show any concern for cholangitis EEG showed generalized background slowing Patient continued to report lower back pain for which she underwent lumbar MRI on 04/02; found to have acute discovertebral osteomyelitis at L4/L5. CT abdomen and pelvis showed right psoas collection of 3 X 1.9cm, left psoas fluid collection of 2 X 1.4 cm. Discussion was done with infectious disease on 04/05; recommend cefazolin 2 g every 8 hours; until May 14, 2024. Will need repeat MRI of the spine in 4 weeks after discharge. BMP, CBC every week. Need to follow-up with infectious disease in 8 to 12 weeks. Plan of care discussed with patient's granddaughter will communicate it to her family. Alcoholic cirrhosis: Alcohol use disorder Likely hepatic encephalopathy due to cirrhosis- resolved --Last EGD 2012 - no esophageal or gastric varices, mild portal gastropathy. Admitting LFT elevated --Recommend patient cease all alcohol use. Low-sodium diet. Avoid hepatotoxic's. --Avoid hepatotoxic agents as able Reorient frequently to minimize any delirium Continue lactulose to have 3-4 good bowel movements per day Also started on rifaximin Needs outpatient EGD, colonoscopy Needs follow-up with hepatology as outpatient Monitor LFTs Updated patient's family on multiple occasions GI on board Titrate lactulose for 2-3 good bowel movements per day Started on Lasix ( on 04/06) and spironolactone( on 04/07) as patient has significant pitting edema bilaterally Demand ischemia: trop mildly elevated Likely demand ischemia 2/2 acute illness. Portal vein thrombosis: Coumadin on hold has significant thrombocytopenia Compression fracture of body of thoracic vertebra: Compression fracture of lumbar vertebra: CT shows compression fractures T11-L1 MRI thoracic and lumbar above Orthopedic spine evaluated, no brace, She should lift no more than 5 pounds. C/w pain Mx. P/OT. Metatarsal fracture: Left foot XR shows: Mildly angulated transverse fractures at the necks of the second through fourth metatarsals. Ortho evaled, no sx Ix, recommends post op shoe for weight bearing x 1 month. no f/u needed per ortho. Acute on chronic anemia Subacute to chronic intramuscular hematomas H/O abdominal wall hematoma S/P PRBCs Monitor H&H and transfuse as needed DVT Px: Elevated INR Hold Coumadin Code Status DNI/DNR Disposition Patient has multiple medical issues including acute osteomyelitis of L4-L5; monitor mentation. Possible discharge in next few days if mentation continues to improves and patient is more mobile Time spent evaluating patient, direct bedside care, chart review, placing orders, interpretation of diagnostic studies, discussion with consultants, patient, and family members, as well as other required patient management activities is 50 minutes Please note the above document was generated using voice recognition software. It may contain grammatical, syntax or spelling errors. Any formal questions or concerns about the content, text or information contained within the body of this dictation should be directly addressed to the provider for clarification Admission and Anticipated Discharge Date Admission Date: March 16, 2024 Subjective Patient seen and examined at bedside She is comfortable; not in distress She is answering all questions appropriately She was not out of the bed yesterday Review of Systems Review of Systems: All systems reviewed & are unremarkable except as noted in Subjective Physical Exam Physical Exam: General Appearance:Obese, no apparent distress, awakeable by voice. Respiratory/Chest: Normal breath sounds, CTA, No accessory muscle use Cardiovascular: S1, S2, No murmur. Abdomen/GI:Soft, Non tender, +Protuberant, Bowel sounds present Back: Tenderness on lower back, no erythema or swelling or warmth. Extremities/Musculoskeletal:normal inspection, 2+ble edema, L foot Echymosis Neurologic/Psych:AAOXself and place, moves all extremities. follow simple commands Skin: normal color, warm Results & Data Results & Data Vital Signs (Past 12 Hours) Vital Signs Temp Pulse Resp BP BP Pulse Ox O2 Del Method 04/08/24 07:11 36.5 C 78 19 128/74 96 Room Air 04/08/24 02:41 36.5 C 84 18 137/72 96 Room Air
[2024-04-09 08:16] LABS: Basophils # (auto) 0.04 K/uL (0.00-0.20); Basophils % (auto) 0.3 %; Eosinophils # (auto) 0.37 K/uL (0.00-0.50); Eosinophils % (auto) 2.6 %; Hematocrit (blood only) 26.4 % (37.0-47.0); Hemoglobin 8.5 g/dl (12.0-16.0); Immature Granulocytes # (auto) 0.34 K/uL (0.01-0.20); Immature Granulocytes % (auto) 2.4 %; Lymphocytes # (auto) 1.27 K/uL (1.20-3.40); Lymphocytes % (auto) 9.1 %; Mean Corpuscular Hemoglobin 35.7 pg (25.0-34.0); Mean Corpuscular Hgb Conc 32.2 g/dL (32.0-36.0); Mean Corpuscular Volume 110.9 fL (80.0-100.0); Monocytes % (auto) 9.3 %; Neutrophils # (auto) 10.65 K/uL (1.40-6.50); Neutrophils % (auto) 76.3 %; Platelet Count 39 K/uL (130-400); RDW Coefficient of Variation 23.5 % (11.5-14.5); RDW Standard Deviation 93.9 fL (36.4-46.3); Red Blood Count 2.38 M/uL (4.20-5.40); White Blood Count 13.97 K/ul (4.8-10.8)
[2024-04-09 08:22] LABS: Albumin Globulin Ratio 0.4 (0.9-2); Albumin Level 1.7 gm/dl (3.4-5.0); BUN Creatinine Ratio 28.6 (10-20); Bilirubin,Total 10.1 mg/dl (0.2-1.0); Calcium 8.5 mg/dl (8.6-10.3); Est GFR (African American) 64.9 ml/min; Globulin 3.8 gm/dl (2.5-4.0); Potassium 3.8 mmol/L (3.5-5.1); Total Protein 5.5 gm/dl (6.0-8.3)
[2024-04-09 08:25] LABS: Prothrombin Time 20.1 Seconds (9.0-12.0)
[2024-04-09 08:42] LABS: Acanthocytes 2+; Anisocytosis Present; Macrocytosis Present; Polychromasia 2+
[2024-04-09] MEDS: FUROSEMIDE 40 MG/4 ML VIAL IV SCH (08:59)
--- NOTE | 2024-04-09 12:53 | Hospitalist Progress Note ---
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 She was found by her granddaughter incontinent of stool and urine on the day of presentation. She is being managed for the following: Severe Sepsis POA UTI Klebsiella bacteremia Acute discovertebral osteomyelitis L4-L5 b/l Psoas Abscess Patient was admitted after mechanical fall. She was found to have Klebsiella bacteremia; underwent treatment with iv cefazolin. Paitiet Underwent workup with MRI of thoracic spine, lumbar spine and brain MRI for altered mental status earlier in the hospitalization; no acute finding were seen. MRCP did not show any concern for cholangitis EEG showed generalized background slowing Patient continued to report lower back pain for which she underwent lumbar MRI on 04/02; found to have acute discovertebral osteomyelitis at L4/L5. CT abdomen and pelvis showed right psoas collection of 3 X 1.9cm, left psoas fluid collection of 2 X 1.4 cm. Discussion was done with infectious disease on 04/05; recommend cefazolin 2 g every 8 hours; until May 14, 2024. Will need repeat MRI of the spine in 4 weeks after discharge. BMP, CBC every week. Need to follow-up with infectious disease in 8 to 12 weeks. PICC line consent taken on 04/09 Alcoholic cirrhosis: Alcohol use disorder Likely hepatic encephalopathy due to cirrhosis- resolved --Last EGD 2012 - no esophageal or gastric varices, mild portal gastropathy. Admitting LFT elevated --Recommend patient cease all alcohol use. Low-sodium diet. Avoid hepatotoxic's. --Avoid hepatotoxic agents as able Reorient frequently to minimize any delirium Continue lactulose to have 3-4 good bowel movements per day Continue on rifaximin Needs outpatient EGD, colonoscopy Needs follow-up with hepatology as outpatient Monitor LFTs GI on board Titrate lactulose for 2-3 good bowel movements per day Started on Lasix ( on 04/06) and spironolactone( on 04/07) as patient has significant pitting edema bilaterally Demand ischemia: trop mildly elevated Likely demand ischemia 2/2 acute illness. Portal vein thrombosis: Coumadin on hold has significant thrombocytopenia Compression fracture of body of thoracic vertebra: Compression fracture of lumbar vertebra: CT shows compression fractures T11-L1 MRI thoracic and lumbar above Orthopedic spine evaluated, no brace, She should lift no more than 5 pounds. C/w pain Mx. P/OT. Metatarsal fracture: Left foot XR shows: Mildly angulated transverse fractures at the necks of the second through fourth metatarsals. Ortho evaled, no sx Ix, recommends post op shoe for weight bearing x 1 month. no f/u needed per ortho. Acute on chronic anemia Subacute to chronic intramuscular hematomas H/O abdominal wall hematoma S/P PRBCs Monitor H&H and transfuse as needed DVT Px: Elevated INR Hold Coumadin Code Status DNI/DNR Disposition Patient has multiple medical issues including acute osteomyelitis of L4-L5; monitor mentation. Possible discharge in next few days if mentation continues to improves and patient is more mobile Time spent evaluating patient, direct bedside care, chart review, placing orders, interpretation of diagnostic studies, discussion with consultants, patient, and family members, as well as other required patient management activities is 50 minutes Please note the above document was generated using voice recognition software. It may contain grammatical, syntax or spelling errors. Any formal questions or concerns about the content, text or information contained within the body of this dictation should be directly addressed to the provider for clarification Admission and Anticipated Discharge Date Admission Date: March 16, 2024 Subjective Patient seen and examined at bedside. She is alert oriented x 3; not in distress She denies any back pain, chest pain, shortness of breath or abdominal pain No significant events overnight Review of Systems Review of Systems: All systems reviewed & are unremarkable except as noted in Subjective Physical Exam Physical Exam: General Appearance:Obese, no apparent distress, awakeable by voice. Respiratory/Chest: Normal breath sounds, CTA, No accessory muscle use Cardiovascular: S1, S2, No murmur. Abdomen/GI:Soft, Non tender, +Protuberant, Bowel sounds present Back: Tenderness on lower back, no erythema or swelling or warmth. Extremities/Musculoskeletal:normal inspection, 1+ble edema, L foot Echymosis Neurologic/Psych:AAOXself and place, moves all extremities. follow simple commands Skin: normal color, warm Results & Data Results & Data Vital Signs (Past 12 Hours) Vital Signs Temp Pulse Pulse Resp BP BP Pulse Ox 04/09/24 10:45 36.8 C 65 18 114/69 100 04/09/24 08:20 80 04/09/24 07:00 36.7 C 90 18 128/76 92 04/09/24 03:55 36.4 C L 79 16 126/79 97 O2 Del Method 04/09/24 10:45 Room Air 04/09/24 08:20 04/09/24 07:00 Room Air 04/09/24 03:55 Room Air
[2024-04-10 08:21] LABS: Basophils # (auto) 0.03 K/uL (0.00-0.20); Basophils % (auto) 0.2 %; Eosinophils # (auto) 0.29 K/uL (0.00-0.50); Hematocrit (blood only) 24.9 % (37.0-47.0); Hemoglobin 8.3 g/dl (12.0-16.0); Immature Granulocytes # (auto) 0.32 K/uL (0.01-0.20); Immature Granulocytes % (auto) 2.2 %; Lymphocytes # (auto) 1.26 K/uL (1.20-3.40); Lymphocytes % (auto) 8.7 %; Mean Corpuscular Hemoglobin 36.1 pg (25.0-34.0); Mean Corpuscular Hgb Conc 33.3 g/dL (32.0-36.0); Mean Corpuscular Volume 108.3 fL (80.0-100.0); Mean Platelet Volume 12.6 fL (9.4-12.4); Monocytes # (auto) 1.36 K/uL (0.11-0.59); Monocytes % (auto) 9.4 %; Neutrophils # (auto) 11.28 K/uL (1.40-6.50); Neutrophils % (auto) 77.5 %; Platelet Count 47 K/uL (130-400); RDW Standard Deviation 89.5 fL (36.4-46.3); White Blood Count 14.54 K/ul (4.8-10.8)
[2024-04-10 08:39] LABS: Albumin Globulin Ratio 0.4 (0.9-2); Albumin Level 1.7 gm/dl (3.4-5.0); BUN Creatinine Ratio 27.6 (10-20); Bilirubin,Total 10.1 mg/dl (0.2-1.0); Calcium 8.3 mg/dl (8.6-10.3); Creatinine Clr Calc Pharmacy 52.3 ml/min; Est GFR (African American) 59.7 ml/min; Est GFR (Non-African American) 51.5 ml/min; Globulin 3.9 gm/dl (2.5-4.0); Potassium 3.8 mmol/L (3.5-5.1); Total Protein 5.6 gm/dl (6.0-8.3)
[2024-04-10 08:50] LABS: Prothrombin Time 20.6 Seconds (9.0-12.0)
[2024-04-10 08:56] LABS: Echinocytes 2+; Macrocytosis Present
[2024-04-10] MEDS: SPIRONOLACTONE 100 MG TAB PO SCH (09:04)
--- NOTE | 2024-04-10 12:32 | Hospitalist Progress Note ---
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 She was found by her granddaughter incontinent of stool and urine on the day of presentation. She is being managed for the following: Severe Sepsis POA UTI Klebsiella bacteremia Acute discovertebral osteomyelitis L4-L5 b/l Psoas Abscess Patient was admitted after mechanical fall. She was found to have Klebsiella bacteremia; underwent treatment with iv cefazolin. Paitiet Underwent workup with MRI of thoracic spine, lumbar spine and brain MRI for altered mental status earlier in the hospitalization; no acute finding were seen. MRCP did not show any concern for cholangitis EEG showed generalized background slowing Patient continued to report lower back pain for which she underwent lumbar MRI on 04/02; found to have acute discovertebral osteomyelitis at L4/L5. CT abdomen and pelvis showed right psoas collection of 3 X 1.9cm, left psoas fluid collection of 2 X 1.4 cm. Discussion was done with infectious disease on 04/05; recommend cefazolin 2 g every 8 hours; until May 14, 2024. Will need repeat MRI of the spine in 4 weeks after discharge. BMP, CBC every week. Need to follow-up with infectious disease in 8 to 12 weeks. PICC line consent taken on 04/09 Alcoholic cirrhosis: Alcohol use disorder Likely hepatic encephalopathy due to cirrhosis- resolved --Last EGD 2012 - no esophageal or gastric varices, mild portal gastropathy. Admitting LFT elevated --Recommend patient cease all alcohol use. Low-sodium diet. Avoid hepatotoxic's. --Avoid hepatotoxic agents as able Reorient frequently to minimize any delirium Continue lactulose to have 3-4 good bowel movements per day Continue on rifaximin Needs outpatient EGD, colonoscopy Needs follow-up with hepatology as outpatient Monitor LFTs GI on board Titrate lactulose for 2-3 good bowel movements per day Started on Lasix ( on 04/06) and spironolactone( on 04/07) as patient has significant pitting edema bilaterally Demand ischemia: trop mildly elevated Likely demand ischemia 2/2 acute illness. Portal vein thrombosis: Coumadin on hold has significant thrombocytopenia Compression fracture of body of thoracic vertebra: Compression fracture of lumbar vertebra: CT shows compression fractures T11-L1 MRI thoracic and lumbar above Orthopedic spine evaluated, no brace, She should lift no more than 5 pounds. C/w pain Mx. P/OT. Metatarsal fracture: Left foot XR shows: Mildly angulated transverse fractures at the necks of the second through fourth metatarsals. Ortho evaled, no sx Ix, recommends post op shoe for weight bearing x 1 month. no f/u needed per ortho. Acute on chronic anemia Subacute to chronic intramuscular hematomas H/O abdominal wall hematoma S/P PRBCs Monitor H&H and transfuse as needed DVT Px: Elevated INR Hold Coumadin Code Status DNI/DNR Disposition Patient has multiple medical issues including acute osteomyelitis of L4-L5;. Patient will need rehab; currently medically stable. Continue to monitor mentation. Time spent evaluating patient, direct bedside care, chart review, placing orders, interpretation of diagnostic studies, discussion with consultants, pat jose, and family members, as well as other required patient management activities is 50 minutes Please note the above document was generated using voice recognition software. It may contain grammatical, syntax or spelling errors. Any formal questions or concerns about the content, text or information contained within the body of this dictation should be directly addressed to the provider for clarification Admission and Anticipated Discharge Date Admission Date: March 16, 2024 Subjective Patient seen and examined at bedside. Comfortable; not in distress. Denies fever, chills, chest pain, shortness of breath, abdominal pain or urinary symptoms. No significant overnight events Review of Systems Review of Systems: All systems reviewed & are unremarkable except as noted in Subjective Physical Exam Physical Exam: General Appearance:Obese, no apparent distress, awakeable by voice. Respiratory/Chest: Normal breath sounds, CTA, No accessory muscle use Cardiovascular: S1, S2, No murmur. Abdomen/GI:Soft, Non tender, +Protuberant, Bowel sounds present Back: Tenderness on lower back, no erythema or swelling or warmth. Extremities/Musculoskeletal:normal inspection, 1+ble edema, L foot Echymosis Neurologic/Psych:AAOXself and place, moves all extremities. follow simple commands Skin: normal color, warm Results & Data Results & Data Vital Signs (Past 12 Hours) Vital Signs Temp Pulse Pulse Resp BP Pulse Ox O2 Del Method 04/10/24 11:21 36.4 C L 94 H 18 141/85 H 98 Room Air 04/10/24 10:58 91 H 04/10/24 07:19 36.4 C L 91 H 18 123/76 94 Room Air 04/10/24 03:37 36.6 C 85 18 112/63 97 Room Air
[2024-04-11 09:05] LABS: Basophils # (auto) 0.03 K/uL (0.00-0.20); Basophils % (auto) 0.2 %; Eosinophils # (auto) 0.28 K/uL (0.00-0.50); Eosinophils % (auto) 1.7 %; Hematocrit (blood only) 21.9 % (37.0-47.0); Hemoglobin 7.5 g/dl (12.0-16.0); Immature Granulocytes # (auto) 0.32 K/uL (0.01-0.20); Immature Granulocytes % (auto) 1.9 %; Lymphocytes # (auto) 0.86 K/uL (1.20-3.40); Lymphocytes % (auto) 5.2 %; Mean Corpuscular Hemoglobin 36.9 pg (25.0-34.0); Mean Corpuscular Hgb Conc 34.2 g/dL (32.0-36.0); Mean Corpuscular Volume 107.9 fL (80.0-100.0); Mean Platelet Volume 12.9 fL (9.4-12.4); Monocytes # (auto) 1.15 K/uL (0.11-0.59); Platelet Count 47 K/uL (130-400); RDW Coefficient of Variation 22.2 % (11.5-14.5); RDW Standard Deviation 86.4 fL (36.4-46.3); Red Blood Count 2.03 M/uL (4.20-5.40); White Blood Count 16.44 K/ul (4.8-10.8)
[2024-04-11 09:38] LABS: Acanthocytes 1+; Anisocytosis Present; Macrocytosis Present; Polychromasia 1+
[2024-04-11 09:41] LABS: INR 2.1 (0.9-1.1); Prothrombin Time 21.7 Seconds (9.0-12.0)
[2024-04-11 10:10] LABS: Albumin Globulin Ratio 0.4 (0.9-2); Albumin Level 1.6 gm/dl (3.4-5.0); BUN Creatinine Ratio 24.8 (10-20); Bilirubin,Total 9.4 mg/dl (0.2-1.0); Calcium 8.1 mg/dl (8.6-10.3); Creatinine Clr Calc Pharmacy 41.3 ml/min; Est GFR (African American) 44.9 ml/min; Est GFR (Non-African American) 38.7 ml/min; Globulin 3.9 gm/dl (2.5-4.0); Potassium 3.6 mmol/L (3.5-5.1); Total Protein 5.5 gm/dl (6.0-8.3)
--- NOTE | 2024-04-11 17:32 | Hospitalist Progress Note ---
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 She was found by her granddaughter incontinent of stool and urine on the day of presentation. She is being managed for the following: Severe Sepsis POA UTI Klebsiella bacteremia Acute discovertebral osteomyelitis L4-L5 b/l Psoas Abscess Patient was admitted after mechanical fall. She was found to have Klebsiella bacteremia; underwent treatment with iv cefazolin. Paitiet Underwent workup with MRI of thoracic spine, lumbar spine and brain MRI for altered mental status earlier in the hospitalization; no acute finding were seen. MRCP did not show any concern for cholangitis EEG showed generalized background slowing --Patient continued to report lower back pain for which she underwent lumbar MRI on 04/02; found to have acute discovertebral osteomyelitis at L4/L5. --CT abdomen and pelvis showed right psoas collection of 3 X 1.9cm, left psoas fluid collection of 2 X 1.4 cm. Prior hospitalist discussed with infectious disease on 04/05; recommend cefazolin 2 g every 8 hours; until May 14, 2024. Will need repeat MRI of the spine in 4 weeks after discharge. BMP, CBC every week. Need to follow-up with infectious disease in 8 to 12 weeks. PICC line placed -- Continue IV cefazolin Plan to discharge to rehab facility as able Alcoholic cirrhosis: Alcohol use disorder Likely hepatic encephalopathy due to cirrhosis- resolved --Last EGD 2012 - no esophageal or gastric varices, mild portal gastropathy. Admitting LFT elevated --Recommend patient cease all alcohol use. Low-sodium diet. Avoid hepatotoxic's. --Avoid hepatotoxic agents as able --Reorient frequently to minimize any delirium Continue lactulose to have 3-4 good bowel movements per day Continue on rifaximin Needs outpatient EGD, colonoscopy Needs follow-up with hepatology as outpatient Monitor LFTs Appreciate GI input Titrate lactulose for 2-3 good bowel movements per day Started on Lasix ( on 04/06) and spironolactone( on 04/07) as patient has significant pitting edema bilaterally Transition IV Lasix to oral as able Demand ischemia: trop mildly elevated Likely demand ischemia 2/2 acute illness. Portal vein thrombosis: Coumadin on hold has significant thrombocytopenia Compression fracture of body of thoracic vertebra: Compression fracture of lumbar vertebra: CT shows compression fractures T11-L1 MRI thoracic and lumbar above Orthopedic spine evaluated, no brace, She should lift no more than 5 pounds. C/w pain Mx. P/OT. Metatarsal fracture: Left foot XR shows: Mildly angulated transverse fractures at the necks of the second through fourth metatarsals. Ortho evaled, no sx Ix, recommends post op shoe for weight bearing x 1 month. no f/u needed per ortho. Acute on chronic anemia Subacute to chronic intramuscular hematomas H/O abdominal wall hematoma S/P PRBCs Monitor H&H and transfuse as needed Acute kidney injury Likely due to diuretics Monitor renal function and avoid nephrotoxic agents as able DVT Px: INR therapeutic Hold Coumadin Code Status DNI/DNR Disposition Rehab as able Admission and Anticipated Discharge Date Admission Date: March 16, 2024 Subjective Patient is seen and examined at bedside States having right flank discomfort but otherwise no complaints Denies any chest pain, dyspnea, nausea, vomiting, abdominal pain Review of Systems Review of Systems: All systems reviewed & are unremarkable except as noted in Subjective Physical Exam Physical Exam: Physical Exam: Vitals signs as noted above General Appearance:Obese, Ill appearing Head: normocephalic, Atraumatic Eyes: normal inspection, EOMI, +Icteric Neck: supple, Trachea midline Respiratory/Chest: Normal breath sounds, CTA, No accessory muscle use Cardiovascular: S1, S2, No murmur Abdomen/GI:Soft, Non tender, +Protuberant, Bowel sounds present Extremities/Musculoskeletal:normal inspection, Left Foot Ecchymosis, 2+ edema Neurologic/Psych: Alert, awake, oriented, grossly no focal deficits Skin: normal color, warm,+Jaundice, + Multiple Ecchymosis Results & Data Results & Data Vital Signs (Past 12 Hours) Vital Signs Temp Pulse Pulse Resp BP Pulse Ox O2 Del Method 04/11/24 15:29 36.5 C 66 18 111/66 96 Room Air 04/11/24 14:04 96 H 04/11/24 11:16 36.5 C 101 H 18 118/72 95 Room Air 04/11/24 09:29 95 H 04/11/24 07:42 36.5 C 93 H 18 122/74 97 Room Air Laboratory Results Short CBC 10/02/24 Range/Units 06:33 WBC 16.44 H (4.8-10.8) K/ul Hgb 7.5 L (12.0-16.0) g/dl Hct 21.9 L (37.0-47.0) % Plt Count 47 L (130-400) K/uL BMP 04/11/24 09:41 Sodium 133 L Potassium 3.6 Chloride 104 Carbon Dioxide 23 BUN 33 H Creatinine 1.33 H Glucose 132 H Calcium 8.1 L Liver Function 04/11/24 Range/Units 09:41 Total Bilirubin 9.4 H (0.2-1.0) mg/dl AST 127 H (13-39) U/L ALT 5 L (7-52) U/L Alkaline Phosphatase 207 H (34-104) U/L Albumin 1.6 L (3.4-5.0) gm/dl
[2024-04-12 06:41] LABS: Hematocrit (blood only) 21.2 % (37.0-47.0); Mean Corpuscular Hemoglobin 36.3 pg (25.0-34.0); Mean Corpuscular Volume 109.8 fL (80.0-100.0); Mean Platelet Volume 11.8 fL (9.4-12.4); Platelet Count 42 K/uL (130-400); RDW Coefficient of Variation 22.5 % (11.5-14.5); RDW Standard Deviation 88.5 fL (36.4-46.3); Red Blood Count 1.93 M/uL (4.20-5.40); White Blood Count 13.55 K/ul (4.8-10.8)
[2024-04-12 06:59] LABS: BUN Creatinine Ratio 29.2 (10-20); Calcium 8.2 mg/dl (8.6-10.3); Creatinine Clr Calc Pharmacy 41.9 ml/min; Potassium 3.6 mmol/L (3.5-5.1)
[2024-04-12 07:07] LABS: INR 2.6 (0.9-1.1); Prothrombin Time 25.5 Seconds (9.0-12.0)
[2024-04-12 08:10] LABS: Hematocrit (blood only) 20.7 % (37.0-47.0)
[2024-04-12] MEDS ORDERED: SODIUM CHLORIDE 0.9% 250 ML IV PRN (08:26)
[2024-04-12] MEDS: FUROSEMIDE INJ 20 MG/2 ML VIAL IV SCH (08:54)
--- NOTE | 2024-04-12 14:31 | Hospitalist Progress Note ---
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 She was found by her granddaughter incontinent of stool and urine on the day of presentation. She is being managed for the following: Severe Sepsis POA UTI Klebsiella bacteremia Acute discovertebral osteomyelitis L4-L5 b/l Psoas Abscess Patient was admitted after mechanical fall. She was found to have Klebsiella bacteremia; underwent treatment with iv cefazolin. Paitiet Underwent workup with MRI of thoracic spine, lumbar spine and brain MRI for altered mental status earlier in the hospitalization; no acute finding were seen. MRCP did not show any concern for cholangitis EEG showed generalized background slowing --Patient continued to report lower back pain for which she underwent lumbar MRI on 04/02; found to have acute discovertebral osteomyelitis at L4/L5. --CT abdomen and pelvis showed right psoas collection of 3 X 1.9cm, left psoas fluid collection of 2 X 1.4 cm. Prior hospitalist discussed with infectious disease on 04/05; recommend cefazolin 2 g every 8 hours; until May 14, 2024. Will need repeat MRI of the spine in 4 weeks after discharge. BMP, CBC every week. Need to follow-up with infectious disease in 8 to 12 weeks. PICC line placed -- Continue IV cefazolin Plan to discharge to rehab facility as able Continue current management Alcoholic cirrhosis: Alcohol use disorder Likely hepatic encephalopathy due to cirrhosis- resolved Volume overload --Last EGD 2012 - no esophageal or gastric varices, mild portal gastropathy. Admitting LFT elevated --Recommend patient cease all alcohol use. Low-sodium diet. Avoid hepatotoxic's. --Avoid hepatotoxic agents as able --Reorient frequently to minimize any delirium Continue lactulose to have 3-4 good bowel movements per day Continue on rifaximin Needs outpatient EGD, colonoscopy Needs follow-up with hepatology as outpatient Monitor LFTs Appreciate GI input Titrate lactulose for 2-3 good bowel movements per day Started on Lasix ( on 04/06) and spironolactone( on 04/07) as patient has signi ficant pitting edema bilaterally Continue IV diuresis Monitor volume status closely Demand ischemia: trop mildly elevated Likely demand ischemia 2/2 acute illness. Portal vein thrombosis: Coumadin on hold Has significant thrombocytopenia INR therapeutic Compression fracture of body of thoracic vertebra: Compression fracture of lumbar vertebra: CT shows compression fractures T11-L1 MRI thoracic and lumbar above Orthopedic spine evaluated, no brace, She should lift no more than 5 pounds. C/w pain Mx. P/OT. Metatarsal fracture: Left foot XR shows: Mildly angulated transverse fractures at the necks of the second through fourth metatarsals. Ortho evaled, no sx Ix, recommends post op shoe for weight bearing x 1 month. no f/u needed per ortho. Acute on chronic anemia Subacute to chronic intramuscular hematomas H/O abdominal wall hematoma S/P PRBCs Monitor H&H and transfuse as needed Transfuse 1 unit PRBC today Acute kidney injury Likely due to diuretics Monitor renal function Avoid nephrotoxic agents as able Consider nephrology evaluation if needed DVT Px: INR therapeutic Hold Coumadin Code Status DNI/DNR Disposition Rehab as able Admission and Anticipated Discharge Date Admission Date: March 16, 2024 Subjective Patient is seen and examined at bedside States having transient minimal epistaxis Subjectively feels well Offers no other complaints today Noted drop in Hb Denies any hematuria, melena, rectal bleed Also denies any chest pain, dyspnea, nausea, vomiting, abdominal pain Review of Systems Review of Systems: All systems reviewed & are unremarkable except as noted in Subjective Physical Exam Physical Exam: Physical Exam: Vitals signs as noted above General Appearance:Obese, Ill appearing Head: normocephalic, Atraumatic Eyes: normal inspection, EOMI, +Icteric Neck: supple, Trachea midline Respiratory/Chest: Normal breath sounds, CTA, No accessory muscle use Cardiovascular: S1, S2, No murmur Abdomen/GI:Soft, Non tender, +Protuberant, Bowel sounds present Extremities/Musculoskeletal:normal inspection, Left Foot Ecchymosis, 2+ edema Neurologic/Psych: Alert, awake, oriented, grossly no focal deficits Skin: normal color, warm,+Jaundice, + Multiple Ecchymosis Results & Data Results & Data Vital Signs (Past 12 Hours) Vital Signs Temp Pulse Pulse Resp BP BP Pulse Ox 04/12/24 13:36 36.3 C L 93 H 18 121/76 97 04/12/24 12:50 36.3 C L 97 H 19 123/65 97 04/12/24 11:50 36.5 C 116 H 19 125/80 99 04/12/24 11:20 36.3 C L 95 H 19 103/64 97 04/12/24 11:05 36.3 C L 94 H 18 107/66 96 04/12/24 10:48 36.4 C L 96 H 18 103/60 97 04/12/24 08:02 04/12/24 08:00 36.4 C L 110 H 19 119/76 96 04/12/24 07:21 98 H 04/12/24 03:01 36.9 C 109 H 17 112/67 97 O2 Del Method 04/12/24 13:36 04/12/24 12:50 04/12/24 11:50 04/12/24 11:20 04/12/24 11:05 04/12/24 10:48 04/12/24 08:02 Room Air 04/12/24 08:00 Room Air 04/12/24 07:21 04/12/24 03:01 Room Air Laboratory Results Short CBC 04/12/24 04/12/24 Range/Units 05:54 07:30 WBC 13.55 H (4.8-10.8) K/ul Hgb 7.0 L 7.0 L (12.0-16.0) g/dl Hct 21.2 L 20.7 L* (37.0-47.0) % Plt Count 42 L (130-400) K/uL BMP 04/12/24 05:54 Sodium 132 L Potassium 3.6 Chloride 104 Carbon Dioxide 23 BUN 38 H Creatinine 1.30 H Glucose 88 Calcium 8.2 L
[2024-04-12 15:32] LABS: Hematocrit (blood only) 26.2 % (37.0-47.0); Hemoglobin 8.7 g/dl (12.0-16.0)
[2024-04-12] MEDS: FUROSEMIDE INJ 20 MG/2 ML VIAL IV ONE (16:03)
[2024-04-13 06:32] LABS: Hematocrit (blood only) 23.1 % (37.0-47.0); Hemoglobin 7.9 g/dl (12.0-16.0); Mean Corpuscular Hemoglobin 36.2 pg (25.0-34.0); Mean Corpuscular Hgb Conc 34.2 g/dL (32.0-36.0); Platelet Count 47 K/uL (130-400); RDW Coefficient of Variation 21.7 % (11.5-14.5); RDW Standard Deviation 81.5 fL (36.4-46.3); Red Blood Count 2.18 M/uL (4.20-5.40); White Blood Count 14.82 K/ul (4.8-10.8)
[2024-04-13 06:51] LABS: Creatinine Clr Calc Pharmacy 37.6 ml/min
[2024-04-13 06:57] LABS: INR 2.6 (0.9-1.1); Prothrombin Time 25.7 Seconds (9.0-12.0)
[2024-04-13] MEDS: FUROSEMIDE 40 MG/4 ML VIAL IV SCH ×2 (09:17→12:06)
[2024-04-13] MEDS: POTASSIUM CHLORIDE CRTAB 20 MEQ TABCR PO SCH (12:06)
--- NOTE | 2024-04-13 14:05 | Nephrology Consultation ---
Date of Consultation April 13, 2024 Assessment & Plan (1) JOSSUE (acute kidney injury): 78-year-old female with extremely complicated comorbid disease history who has been in the hospital now for almost a month. Came in after she was found unresponsive and was found to have bacteremia with sepsis and was very sick for many days. During that time, She did receive a lot of fluid. despite extensive complicated events during this hospitalization her renal function remained normal and creatinine was less than 1 up until 4 days ago. now creatinine has been rising now for the last few days and is up to 1.5. However she has massive edema / anasarca causing significant discomfort as well as skin leakage. given this she does need to be diuresed. this is even at the expense of rising creatinine. her blood pressure currently is good. increase the Lasix dose to 40 mg IV q.8 hours. continue to monitor her input and output carefully. She currently has a purewick. (2) Bacteremia due to Klebsiella pneumoniae: at the time of presentation she did have bacteremia with sepsis but has recovered significantly (3) Cirrhosis: underlying problem is alcoholic liver cirrhosis and unfortunately she is still drinking. reviewed Hepatology notes. patient is not encephalopathy at this time Plan Case complexity very high and involved extensive chart review prior to admission as well as intra hospitalization course involving 4 weeks. reviewed multiple specialists notes including Gastroenterology Palliative Medicine orthopedics. total time spent 65 minute. management plan was discussed with primary team and in agreement History of Present Illness Reason for Consultation: acute kidney injury and volume overload Attending Physician: Jer Smith MD History of Present Illness 78-year-old female who has been in the hospital now for 4 weeks. 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 History is limited from the patient, additional history obtained from ED documentation and review of outpatient PCP, GI, hematology records. Patient reports that 2 days ago she was going to the bathroom and the next thing she knew she was on the floor. She is unsure how long she was on the floor. She was found by her granddaughter confused and incontinent of stool and urine. EMS was called and patient was brought to the ED for further evaluation. In the ED, imaging showed T11-L1 compression fractures and left 2nd through 4th metatarsal fractures. Labs show WBC 16K, lactate 4.6, elevated LFTs. blood culture did grew Klebsiella pneumoniae. Patient was given IVF, IV morphine, IV Zofran. In the beginning she did have significant hepatic encephalopathy with severe confusion but at this time she appears to be completely normal. for the last few days creatinine has been rising and she does have massive fluid overload. She did get 1 dose of Lasix earlier today and with that has made lot of urine. the plan for her is to go to a long-term facility sometime next week ( [facility] [place]) review of systems---- at this point of time she feels pretty normal and says she is eating and drinking normally. She does have discomfort in her lower extremities where she has lot of edema. denies any pain at rest but does hurt her back when she tries to move. otherwise 12 systems reviewed and negative Physical Exam Physical Exam: General Appearance:Obese, Ill appearing Jaundice ++ Head: normocephalic, Atraumatic Neck: supple, No JVD Respiratory/Chest: Normal breath sounds, CTA, No accessory muscle use Cardiovascular: S1, S2, No murmur Abdomen/GI: Soft, Non tender, distended Extremities/Musculoskeletal:4+ edema Neurologic/Psych: Alert, awake, oriented, grossly no focal deficits Skin: normal color, warm,+Jaundice, + Multiple Ecchymosis Allergies Allergy/AdvReac Type Severity Reaction Status Date / Time Penicillins Allergy Severe UNKNOWN Verified 03/16/24 10:27 aspirin Allergy Intermediate HIVES Verified 03/16/24 10:27 Home Medications Medication Instructions Recorded Confirmed Type atenolol 25 mg tablet 25 mg PO QAM 07/14/20 03/16/24 History [id number] 25 30 ml PO Q4 PRN Cold Symptoms 07/14/20 03/16/24 History mg-10 mg-650 mg/30 mL oral liquid multivitamin with minerals-folic 1 tab PO DAILY ##0 07/14/20 03/16/24 History acid 80 mcg chewable tablet warfarin 1 mg tablet 1 mg PO DAILY 03/16/24 03/16/24 History Patient History Medical History Portal vein thrombosis Alcoholic cirrhosis Anemia 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 Multiple rib fractures Depression Anticoagulated on Coumadin Hypertension Surgical History No pertinent past surgical history Social History Smoking Status: Never smoker Hx Alcohol Use: Yes Alcohol type: wine Hx Substance Use: No Preferred Language: Setswana Communication Ability: Effective Injection Molding Technician Required: No Beliefs That Will Affect Care: None Current Living Situation: Family Feels Safe at Home: Yes Safety Concerns: Feels Safe At This Time Assistive Devices: Cane and Walker Results & Data Vital Signs (Past 12 Hours) Vital Signs Temp Pulse Pulse Resp BP BP Pulse Ox 04/13/24 11:34 36.7 C 89 18 117/73 98 04/13/24 08:30 04/13/24 08:05 36.6 C 86 18 106/56 L 98 04/13/24 07:19 96 H 04/13/24 03:23 36.7 C 103 H 15 136/76 97 O2 Del Method 04/13/24 11:34 Room Air 04/13/24 08:30 Room Air 04/13/24 08:05 Room Air 04/13/24 07:19 04/13/24 03:23 Room Air Laboratory Results LFT renal panel reviewed from the time of admission till today. CBC as well as blood culture report reviewed (3) Cirrhosis Hepatic cirrhosis type: unspecified hepatic cirrhosis
--- NOTE | 2024-04-13 16:25 | Hospitalist Progress Note ---
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 She was found by her granddaughter incontinent of stool and urine on the day of presentation. She is being managed for the following: Severe Sepsis POA UTI Klebsiella bacteremia Acute discovertebral osteomyelitis L4-L5 b/l Psoas Abscess Patient was admitted after mechanical fall. She was found to have Klebsiella bacteremia; underwent treatment with iv cefazolin. Paitiet Underwent workup with MRI of thoracic spine, lumbar spine and brain MRI for altered mental status earlier in the hospitalization; no acute finding were seen. MRCP did not show any concern for cholangitis EEG showed generalized background slowing --Patient continued to report lower back pain for which she underwent lumbar MRI on 04/02; found to have acute discovertebral osteomyelitis at L4/L5. --CT abdomen and pelvis showed right psoas collection of 3 X 1.9cm, left psoas fluid collection of 2 X 1.4 cm. Prior hospitalist discussed with infectious disease on 04/05; recommend cefazolin 2 g every 8 hours; until May 14, 2024. Will need repeat MRI of the spine in 4 weeks after discharge. BMP, CBC every week. Need to follow-up with infectious disease in 8 to 12 weeks. PICC line placed -- Continue IV cefazolin Plan to discharge to rehab facility as able Continue current management antibiotics Alcoholic cirrhosis: Alcohol use disorder Likely hepatic encephalopathy due to cirrhosis- resolved Anasarca --Last EGD 2012 - no esophageal or gastric varices, mild portal gastropathy. Admitting LFT elevated --Recommend patient cease all alcohol use. Low-sodium diet. Avoid hepatotoxic's. --Avoid hepatotoxic agents as able --Reorient frequently to minimize any delirium Continue lactulose to have 3-4 good bowel movements per day Continue on rifaximin Needs outpatient EGD, colonoscopy Needs follow-up with hepatology as outpatient Monitor LFTs Appreciate GI input Titrate lactulose for 2-3 good bowel movements per day Started on Lasix ( on 04/06) and spironolactone( on 04/07) as patient has significant pitting edema bilaterally Continue IV diuresis--increase to 40 mg Q8H Monitor volume status closely Appreciate nephrology input Demand ischemia: trop mildly elevated Likely demand ischemia 2/2 acute illness. Hyponatremia Likely due to volume overload Monitor sodium levels closely Portal vein thrombosis: Coumadin on hold Has significant thrombocytopenia INR therapeutic Compression fracture of body of thoracic vertebra: Compression fracture of lumbar vertebra: CT shows compression fractures T11-L1 MRI thoracic and lumbar above Orthopedic spine evaluated, no brace, She should lift no more than 5 pounds. C/w pain Mx. P/OT. Metatarsal fracture: Left foot XR shows: Mildly angulated transverse fractures at the necks of the second through fourth metatarsals. Ortho evaled, no sx Ix, recommends post op shoe for weight bearing x 1 month. no f/u needed per ortho. Acute on chronic anemia Subacute to chronic intramuscular hematomas H/O abdominal wall hematoma S/P PRBCs Monitor H&H and transfuse as needed Monitor CBC Acute kidney injury Likely due to diuretics Monitor renal function Avoid nephrotoxic agents as able Consider nephrology evaluation if needed Cr 1.4 today DVT Px: INR therapeutic Hold Coumadin Code Status DNI/DNR Disposition Rehab as able Admission and Anticipated Discharge Date Admission Date: March 16, 2024 Subjective Patient is seen and examined at bedside S reports lower back pain today No other complaints Discussed with nephrology today Renal function slowly worsening Significant leg edema Denies any chest pain, dyspnea, nausea, vomiting, abdominal pain Review of Systems Review of Systems: All systems reviewed & are unremarkable except as noted in Subjective Physical Exam Physical Exam: Physical Exam: Vitals signs as noted above General Appearance:Obese, Ill appearing Head: normocephalic, Atraumatic Eyes: normal inspection, EOMI, +Icteric Neck: supple, Trachea midline Respiratory/Chest: Normal breath sounds, CTA, No accessory muscle use Cardiovascular: S1, S2, No murmur Abdomen/GI:Soft, Non tender, +Protuberant, Bowel sounds present Extremities/Musculoskeletal:normal inspection, Left Foot Ecchymosis, 2+ edema Neurologic/Psych: Alert, awake, oriented, grossly no focal deficits Skin: normal color, warm,+Jaundice, + Multiple Ecchymosis Results & Data Results & Data Vital Signs (Past 12 Hours) Vital Signs Temp Pulse Pulse Resp BP Pulse Ox O2 Del Method 04/13/24 16:01 36.8 C 116 H 18 108/70 97 Room Air 04/13/24 11:34 36.7 C 89 18 117/73 98 Room Air 04/13/24 08:30 Room Air 04/13/24 08:05 36.6 C 86 18 106/56 L 98 Room Air 04/13/24 07:19 96 H Laboratory Results Short CBC 04/13/24 Range/Units 06:10 WBC 14.82 H (4.8-10.8) K/ul Hgb 7.9 L (12.0-16.0) g/dl Hct 23.1 L (37.0-47.0) % Plt Count 47 L (130-400) K/uL BMP 04/13/24 06:10 Creatinine 1.45 H
[2024-04-13] MEDS ORDERED: METOPROLOL TARTRATE 1 MG/ML VIAL IV PRN (16:54)
[2024-04-13] MEDS: METOPROLOL TARTRATE 25 MG TAB PO SCH (17:36)
[2024-04-13 18:40] LABS: Creatinine Clr Calc Pharmacy 37.6 ml/min; Magnesium 1.5 mg/dl (1.7-2.4); Potassium 3.8 mmol/L (3.5-5.1)
[2024-04-13] MEDS: POTASSIUM CHLORIDE CRTAB 20 MEQ TABCR PO ONE (19:43)
[2024-04-13] MEDS: MAGNESIUM SULFATE / D5W 1 GM/100 ML BAG IV SCH (19:43)
[2024-04-14 07:56] LABS: Hemoglobin 7.7 g/dl (12.0-16.0)
[2024-04-14 08:29] LABS: INR 2.7 (0.9-1.1); Prothrombin Time 26.8 Seconds (9.0-12.0)
[2024-04-14 08:34] LABS: Calcium 8.1 mg/dl (8.6-10.3); Potassium 4.2 mmol/L (3.5-5.1)
[2024-04-14 08:40] LABS: BUN Creatinine Ratio 30.6 (10-20); Creatinine Clr Calc Pharmacy 62.3 ml/min
[2024-04-14] MEDS: MAGNESIUM CHLORIDE W/CALCIUM 64MG DELAYED REL TAB PO SCH (10:24)
--- NOTE | 2024-04-14 11:14 | Electrocardiogram Report ---
Test Reason : Blood Pressure : */* mmHG Vent. Rate : 120 BPM Atrial Rate : 133 BPM P-R Int : * ms QRS Dur : 98 ms QT Int : 386 ms P-R-T Axes : * 6 107 degrees QTcB Int : 545 ms Unusual but uncertain supraventricular rhythm with short [place] interval, consider low atrial rhythm Nonspecific T wave abnormality Prolonged QT Abnormal ECG When compared with ECG of 21-Mar-2024 14:45, Current rhythm has replaced Sinus rhythm Vent. rate has increased by 46 bpm Non-specific change in ST segment in Inferior leads Non-specific change in ST segment in Lateral leads Nonspecific T wave abnormality, worse in Lateral leads Confirmed by Deven Arias ([id number]) on 04/14/2024 11:14:43 AM Referred By: REFERRED SELF Confirmed By: Deven Arias
--- NOTE | 2024-04-14 13:24 | Nephrology Progress Note ---
Date of Service April 14, 2024 Assessment & Plan Admission and Anticipated Discharge Date Admission Date: March 16, 2024 Subjective Assessment & Plan (1) JOSSUE (acute kidney injury): 78-year-old female with extremely complicated comorbid disease history who has been in the hospital now for almost a month. Came in after she was found unresponsive and was found to have bacteremia with sepsis and was very sick for many days. During that time, She did receive a lot of fluid. despite extensive complicated events during this hospitalization her renal function remained normal and creatinine was less than 1 up until 4 days ago. now creatinine has been rising now for the last few days and is up to 1.5. Creat today about same. However she has massive edema / anasarca causing significant discomfort as well as skin leakage. given this she does need to be diuresed. this is even at the expense of rising creatinine. her blood pressure currently is good. Continue Lasix dose 40 mg IV q.8 hours. continue to monitor her input and output carefully. She currently has a purewick so helpful for Accurate I and 0 but she is still leaking/incontinent as per RN. renal labs today about same as yesterday (2) Bacteremia due to Klebsiella pneumoniae: at the time of presentation she did have bacteremia with sepsis but has recovered significantly (3) Cirrhosis: underlying problem is alcoholic liver cirrhosis and unfortunately she is still drinking. reviewed Hepatology notes. patient is not encephalopathy at this time S---Feels about same. Urine did go up but still not massive however lot of urine is missed by Purewick review of systems---- at this point of time she feels pretty normal and says she is eating and drinking normally. She does have discomfort in her lower extremities where she has lot of edema. denies any pain at rest but does hurt her back when she tries to move. otherwise 12 systems reviewed and negative Physical Exam Physical Exam: General Appearance:Obese, Ill appearing Jaundice ++ Head: normocephalic, Atraumatic Neck: supple, No JVD Respiratory/Chest: Normal breath sounds, CTA, No accessory muscle use Cardiovascular: S1, S2, No murmur Abdomen/GI: Soft, Non tender, distended Extremities/Musculoskeletal:4+ edema Neurologic/Psych: Alert, awake, oriented, grossly no focal deficits Skin: normal color, warm,+Jaundice, + Multiple Ecchymosis Results & Data Vital Signs (Past 12 Hours) Vital Signs Temp Pulse Resp BP Pulse Ox O2 Del Method 04/14/24 10:37 36.4 C L 73 19 113/67 99 Room Air 04/14/24 07:19 36.4 C L 74 17 114/68 97 Room Air 04/14/24 03:30 36.4 C L 76 16 110/69 98 Room Air
--- NOTE | 2024-04-14 16:29 | Hospitalist Progress Note ---
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 She was found by her granddaughter incontinent of stool and urine on the day of presentation. She is being managed for the following: Severe Sepsis POA UTI Klebsiella bacteremia Acute discovertebral osteomyelitis L4-L5 b/l Psoas Abscess Patient was admitted after mechanical fall. She was found to have Klebsiella bacteremia; underwent treatment with iv cefazolin. Paitiet Underwent workup with MRI of thoracic spine, lumbar spine and brain MRI for altered mental status earlier in the hospitalization; no acute finding were seen. MRCP did not show any concern for cholangitis EEG showed generalized background slowing --Patient continued to report lower back pain for which she underwent lumbar MRI on 04/02; found to have acute discovertebral osteomyelitis at L4/L5. --CT abdomen and pelvis showed right psoas collection of 3 X 1.9cm, left psoas fluid collection of 2 X 1.4 cm. Prior hospitalist discussed with infectious disease on 04/05; recommend cefazolin 2 g every 8 hours; until May 14, 2024. Will need repeat MRI of the spine in 4 weeks after discharge. BMP, CBC every week. Need to follow-up with infectious disease in 8 to 12 weeks. PICC line placed -- Continue IV cefazolin Plan to discharge to rehab facility as able Continue current management Alcoholic cirrhosis: Alcohol use disorder Likely hepatic encephalopathy due to cirrhosis- resolved Anasarca --Last EGD 2012 - no esophageal or gastric varices, mild portal gastropathy. Admitting LFT elevated --Recommend patient cease all alcohol use. Low-sodium diet. Avoid hepatotoxic's. --Avoid hepatotoxic agents as able --Reorient frequently to minimize any delirium Continue lactulose to have 3-4 good bowel movements per day Continue on rifaximin Needs outpatient EGD, colonoscopy Needs follow-up with hepatology as outpatient Monitor LFTs Appreciate GI input Titrate lactulose for 2-3 good bowel movements per day Started on Lasix ( on 04/06) and spironolactone( on 04/07) as patient has significant pitting edema bilaterally Continue IV diuresis--increase to 40 mg Q8H Monitor volume status closely Appreciate nephrology input Continue current IV diuretics, monitor I's and O's Demand ischemia: trop mildly elevated Likely demand ischemia 2/2 acute illness. Hyponatremia Likely due to volume overload Monitor sodium levels closely Sodium 132 today Portal vein thrombosis: Coumadin on hold Has significant thrombocytopenia INR therapeutic Compression fracture of body of thoracic vertebra: Compression fracture of lumbar vertebra: CT shows compression fractures T11-L1 MRI thoracic and lumbar above Orthopedic spine evaluated, no brace, She should lift no more than 5 pounds. C/w pain Mx. P/OT. Metatarsal fracture: Left foot XR shows: Mildly angulated transverse fractures at the necks of the second through fourth metatarsals. Ortho evaled, no sx Ix, recommends post op shoe for weight bearing x 1 month. no f/u needed per ortho. Acute on chronic anemia Subacute to chronic intramuscular hematomas H/O abdominal wall hematoma S/P PRBCs Monitor H&H and transfuse as needed Monitor CBC Hb 7.7 today Acute kidney injury Likely due to diuretics Monitor renal function Avoid nephrotoxic agents as able Consider nephrology evaluation if needed Cr 1.4 today DVT Px: INR therapeutic Hold Coumadin Code Status DNI/DNR Disposition Rehab as able Admission and Anticipated Discharge Date Admission Date: March 16, 2024 Subjective Patient is seen and examined at bedside States feeling well today Leg edema slowly improving no complaints today Renal function stable Denies any chest pain, dyspnea, nausea, vomiting, abdominal pain Review of Systems Review of Systems: All systems reviewed & are unremarkable except as noted in Subjective Physical Exam Physical Exam: Physical Exam: Vitals signs as noted above General Appearance:Obese, Ill appearing Head: normocephalic, Atraumatic Eyes: normal inspection, EOMI, +Icteric Neck: supple, Trachea midline Respiratory/Chest: Normal breath sounds, CTA, No accessory muscle use Cardiovascular: S1, S2, No murmur Abdomen/GI:Soft, Non tender, +Protuberant, Bowel sounds present Extremities/Musculoskeletal:normal inspection, Left Foot Ecchymosis, 2+ edema Neurologic/Psych: Alert, awake, oriented, grossly no focal deficits Skin: normal color, warm,+Jaundice, + Multiple Ecchymosis Results & Data Results & Data Vital Signs (Past 12 Hours) Vital Signs Temp Pulse Pulse Resp BP Pulse Ox O2 Del Method 04/14/24 14:56 36.4 C L 88 17 106/66 96 Room Air 04/14/24 13:00 69 04/14/24 10:37 36.4 C L 73 19 113/67 99 Room Air 04/14/24 07:19 36.4 C L 74 17 114/68 97 Room Air 04/14/24 06:00 69 Laboratory Results Short CBC 04/14/24 Range/Units 07:14 Hgb 7.7 L (12.0-16.0) g/dl Hct 22.0 L (37.0-47.0) % BMP 04/13/24 04/14/24 17:27 07:14 Sodium 130 L 132 L Potassium 3.8 4.2 Chloride 101 104 Carbon Dioxide 22 24 BUN 42 H 44 H Creatinine 1.45 H 1.44 H Glucose 166 H 110 H Calcium 8.0 L 8.1 L
[2024-04-15 07:51] LABS: Hematocrit (blood only) 23.1 % (37.0-47.0); Hemoglobin 7.8 g/dl (12.0-16.0); Mean Corpuscular Hemoglobin 35.6 pg (25.0-34.0); Mean Corpuscular Hgb Conc 33.8 g/dL (32.0-36.0); Mean Corpuscular Volume 105.5 fL (80.0-100.0); Mean Platelet Volume 12.1 fL (9.4-12.4); Platelet Count 59 K/uL (130-400); RDW Standard Deviation 82.4 fL (36.4-46.3); Red Blood Count 2.19 M/uL (4.20-5.40); White Blood Count 13.23 K/ul (4.8-10.8)
[2024-04-15 08:12] LABS: INR 2.8 (0.9-1.1); Prothrombin Time 27.7 Seconds (9.0-12.0)
[2024-04-15 08:14] LABS: BUN Creatinine Ratio 31.4 (10-20); Calcium 8.3 mg/dl (8.6-10.3); Creatinine Clr Calc Pharmacy 35.1 ml/min; Magnesium 1.9 mg/dl (1.7-2.4); Potassium 4.6 mmol/L (3.5-5.1)
--- NOTE | 2024-04-15 15:18 | Nephrology Progress Note ---
Date of Service April 15, 2024 Assessment & Plan Admission and Anticipated Discharge Date Admission Date: March 16, 2024 Subjective Assessment & Plan (1) JOSSUE (acute kidney injury): 78-year-old female with extremely complicated comorbid disease history who has been in the hospital now for almost a month. Came in after she was found unresponsive and was found to have bacteremia with sepsis and was very sick for many days. During that time, She did receive a lot of fluid. despite extensive complicated events during this hospitalization her renal function remained normal and creatinine was less than 1 up until 4 days ago. now creatinine has been rising now for the last few days and is up to 1.5. Creat today about same. However she has massive edema / anasarca causing significant discomfort as well as skin leakage. given this she does need to be diuresed. this is even at the expense of rising creatinine. her blood pressure currently is good. Continue Lasix dose 40 mg IV q.8 hours. Lots of urine and lot of urine is missed by Leyda as per RN. edema is less but still has a lot renal labs today about same as yesterday: creat holding around 1.4--1.5 for 3 days now. Would keep her in hospital few more days for diuresis and to lower her wt further. (2) Bacteremia due to Klebsiella pneumoniae: at the time of presentation she did have bacteremia with sepsis but has recovered significantly (3) Cirrhosis: underlying problem is alcoholic liver cirrhosis and unfortunately she is still drinking. reviewed Hepatology notes. patient is not encephalopathic at this time S---Feels about same. Urine did go up but still not massive however lot of urine is missed by Leyda review of systems---- at this point of time she feels pretty normal and says she is eating and drinking normally. She does have discomfort in her lower extremities where she has lot of edema. denies any pain at rest but does hurt her back when she tries to move. otherwise 12 systems reviewed and negative Physical Exam Physical Exam: General Appearance:Obese, Ill appearing Jaundice ++ Head: normocephalic, Atraumatic Neck: supple, No JVD Respiratory/Chest: Normal breath sounds, CTA, No accessory muscle use Cardiovascular: S1, S2, No murmur Abdomen/GI: Soft, Non tender, distended Extremities/Musculoskeletal:4+ edema Neurologic/Psych: Alert, awake, oriented, grossly no focal deficits Skin: normal color, warm,+Jaundice, + Multiple Ecchymosis Results & Data Vital Signs (Past 12 Hours) Vital Signs Temp Pulse Pulse Resp BP BP Pulse Ox 04/15/24 15:16 36.7 C 73 18 104/67 98 04/15/24 13:00 71 04/15/24 11:21 36.4 C L 63 18 96/62 L 99 04/15/24 07:44 36.6 C 62 18 104/66 94 04/15/24 06:00 66 04/15/24 03:32 36.4 C L 72 16 102/63 99 O2 Del Method 04/15/24 15:16 Room Air 04/15/24 13:00 04/15/24 11:21 Room Air 04/15/24 07:44 Room Air 04/15/24 06:00 04/15/24 03:32 Room Air
--- NOTE | 2024-04-15 16:20 | Hospitalist Progress Note ---
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 She was found by her granddaughter incontinent of stool and urine on the day of presentation. She is being managed for the following: Severe Sepsis POA UTI Klebsiella bacteremia Acute discovertebral osteomyelitis L4-L5 b/l Psoas Abscess Patient was admitted after mechanical fall. She was found to have Klebsiella bacteremia; underwent treatment with iv cefazolin. Paitiet Underwent workup with MRI of thoracic spine, lumbar spine and brain MRI for altered mental status earlier in the hospitalization; no acute finding were seen. MRCP did not show any concern for cholangitis EEG showed generalized background slowing --Patient continued to report lower back pain for which she underwent lumbar MRI on 04/02; found to have acute discovertebral osteomyelitis at L4/L5. --CT abdomen and pelvis showed right psoas collection of 3 X 1.9cm, left psoas fluid collection of 2 X 1.4 cm. Prior hospitalist discussed with infectious disease on 04/05; recommend cefazolin 2 g every 8 hours; until May 14, 2024. Will need repeat MRI of the spine in 4 weeks after discharge. BMP, CBC every week. Need to follow-up with infectious disease in 8 to 12 weeks. PICC line placed -- Continue IV cefazolin Plan to discharge to rehab facility as able Continue antibiotics as recommended by infectious disease Alcoholic cirrhosis: Alcohol use disorder Likely hepatic encephalopathy due to cirrhosis- resolved Anasarca --Last EGD 2012 - no esophageal or gastric varices, mild portal gastropathy. Admitting LFT elevated --Recommend patient cease all alcohol use. Low-sodium diet. Avoid hep atotoxic's. --Avoid hepatotoxic agents as able --Reorient frequently to minimize any delirium Continue lactulose to have 3-4 good bowel movements per day Continue on rifaximin Needs outpatient EGD, colonoscopy Needs follow-up with hepatology as outpatient Monitor LFTs Appreciate GI input Titrate lactulose for 2-3 good bowel movements per day Started on Lasix ( on 04/06) and spironolactone( on 04/07) as patient has significant pitting edema bilaterally Continue IV 40 mg Q8H Monitor volume status closely Appreciate nephrology input Monitor I's and O's Continue IV diuresis Demand ischemia: trop mildly elevated Likely demand ischemia 2/2 acute illness. Hyponatremia Likely due to volume overload Monitor sodium levels closely Sodium 132 today Portal vein thrombosis: Coumadin on hold Has significant thrombocytopenia INR therapeutic 2.8 today Compression fracture of body of thoracic vertebra: Compression fracture of lumbar vertebra: CT shows compression fractures T11-L1 MRI thoracic and lumbar above Orthopedic spine evaluated, no brace, She should lift no more than 5 pounds. C/w pain Mx. P/OT. Metatarsal fracture: Left foot XR shows: Mildly angulated transverse fractures a t the necks of the second through fourth metatarsals. Ortho evaled, no sx Ix, recommends post op shoe for weight bearing x 1 month. no f/u needed per ortho. Acute on chronic anemia Subacute to chronic intramuscular hematomas H/O abdominal wall hematoma S/P PRBCs Monitor H&H and transfuse as needed Monitor CBC Hb 7.8 today Acute kidney injury Likely due to diuretics Monitor renal function Avoid nephrotoxic agents as able Consider nephrology evaluation if needed Cr 1.5 today DVT Px: INR therapeutic Hold Coumadin Code Status DNI/DNR Disposition Rehab as able Admission and Anticipated Discharge Date Admission Date: March 16, 2024 Subjective Patient is seen and examined at bedside No new complaints Leg edema improving Discussed with patient's family at bedside Denies any chest pain, dyspnea, nausea, vomiting, abdominal pain Review of Systems Review of Systems: All systems reviewed & are unremarkable except as noted in Subjective Physical Exam Physical Exam: Physical Exam: Vitals signs as noted above General Appearance:Obese, Ill appearing Head: normocephalic, Atraumatic Eyes: normal inspection, EOMI, +Icteric Neck: supple, Trachea midline Respiratory/Chest: Normal breath sounds, CTA, No accessory muscle use Cardiovascular: S1, S2, No murmur Abdomen/GI:Soft, Non tender, +Protuberant, Bowel sounds present Extremities/Musculoskeletal:normal inspection, Left Foot Ecchymosis, 2+ edema Neurologic/Psych: Alert, awake, oriented, grossly no focal deficits Skin: normal color, warm,+Jaundice, + Multiple Ecchymosis Results & Data Results & Data Vital Signs (Past 12 Hours) Vital Signs Temp Pulse Pulse Resp BP BP Pulse Ox 04/15/24 15:16 36.7 C 73 18 104/67 98 04/15/24 13:00 71 04/15/24 11:21 36.4 C L 63 18 96/62 L 99 04/15/24 07:44 36.6 C 62 18 104/66 94 04/15/24 06:00 66 O2 Del Method 04/15/24 15:16 Room Air 04/15/24 13:00 04/15/24 11:21 Room Air 04/15/24 07:44 Room Air 04/15/24 06:00 Laboratory Results Short CBC 04/15/24 Range/Units 07:20 WBC 13.23 H (4.8-10.8) K/ul Hgb 7.8 L (12.0-16.0) g/dl Hct 23.1 L (37.0-47.0) % Plt Count 59 L (130-400) K/uL BMP 04/15/24 07:20 Sodium 132 L Potassium 4.6 Chloride 104 Carbon Dioxide 24 BUN 48 H Creatinine 1.53 H Glucose 83 Calcium 8.3 L
[2024-04-15] MEDS: MAGNESIUM SULFATE / D5W 1 GM/100 ML BAG IV ONE (21:02)
[2024-04-16 08:08] LABS: Hematocrit (blood only) 23.5 % (37.0-47.0); Hemoglobin 7.8 g/dl (12.0-16.0)
[2024-04-16 08:34] LABS: BUN Creatinine Ratio 31.6 (10-20); Calcium 8.4 mg/dl (8.6-10.3); Creatinine Clr Calc Pharmacy 30.4 ml/min; Magnesium 2.1 mg/dl (1.7-2.4); Potassium 5.2 mmol/L (3.5-5.1)
[2024-04-16 08:39] LABS: INR 2.7 (0.9-1.1)
--- NOTE | 2024-04-16 12:12 | Nephrology Progress Note ---
Date of Service April 16, 2024 Assessment & Plan (1) JOSSUE (acute kidney injury): Plan: worsening stage 1 nonoliguric JOSSUE in the setting of obligate diuresis 78-year-old female with extremely complicated comorbid disease history who has been in the hospital now for almost a month. Came in after she was found unresponsive and was found to have bacteremia with sepsis and was very sick for many days. During that time, She did receive a lot of fluid. despite extensive complicated events during this hospitalization her renal function remained normal and creatinine was at/near baseline 0.9 until 04/10 when it went to 1.1, then up to 1.3 04/11. now creatinine has been rising now for the last few days and is up to 1.8. However she has massive edema / anasarca causing significant discomfort as well as skin leakage. given this she still does need to be diuresed, even at the expense of rising creatinine. her blood pressure currently is dropping to 90s, so far not for extended periods and HR today first time in 90s >> monitor; low threshold for midodrine if SBP consistently in 90s > > while a liver pt, low BP can still hurt kidneys >>changed lasix dosing to 20 mg IV q6h from recently increased 04/15 Lasix dose to 40 mg IV q.8 hours. >>continue to monitor her input and output carefully. She currently has a purewick though it leaks often so I/O often incopmlete. -started FR 1.5L -agree w/ holding K for now -daily STANDING weights when able (may be some time); barring this consistent bed weights pls -daily bmp -recommend low Na diet but defer to primary after extended illness (2) Bacteremia due to Klebsiella pneumoniae: Plan: at the time of presentation she did have bacteremia with sepsis but has recovered significantly (3) Cirrhosis: Plan: underlying problem is alcoholic liver cirrhosis and unfortunately she is still drinking. reviewed Hepatology notes. patient is not encephalopathic at this time Admission and Anticipated Discharge Date Admission Date: March 16, 2024 Subjective seen on after noon rounds; sat on side of bed 2nd time today; still quite weak. no sob. Review of Systems 2 Review of Systems: All systems reviewed & are unremarkable except as noted in Subjective Physical Exam 2 Constitutional: well developed and well nourished Eyes: EOM intact bilaterally ENMT: Mouth: + muffled voice and + dry oral mucous membranes Respiratory: normal respiratory effort Auscultation: + diminished lung sounds and + rhonchi (occasional) Cardiovascular: Rate/Rhythm: regular rate and regular rhythm Extremities: + edema (3+ dependent and peripheral) Musculoskeletal: Extremities: strength 5/5 throughout Skin: no rashes, warm and dry Neurologic: candelario, fluent speech, no tremor Results & Data Vital Signs (Past 12 Hours) Vital Signs Temp Pulse Pulse Resp BP Pulse Ox O2 Del Method 04/16/24 11:00 36.6 C 98 H 20 98/56 L 97 Room Air 04/16/24 08:00 70 04/16/24 07:31 Room Air 04/16/24 07:00 36.5 C 77 18 114/68 98 Room Air 04/16/24 03:49 36.4 C L 73 17 111/72 99 Room Air Laboratory Results 04/16/24 07:32 04/16/24 07:32 (3) Cirrhosis Hepatic cirrhosis type: unspecified hepatic cirrhosis
[2024-04-16] MEDS: FUROSEMIDE 40 MG/4 ML VIAL IV SCH (12:45)
--- NOTE | 2024-04-16 15:38 | Hospitalist Progress Note ---
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 She was found by her granddaughter incontinent of stool and urine on the day of presentation. She is being managed for the following: Severe Sepsis POA UTI Klebsiella bacteremia Acute discovertebral osteomyelitis L4-L5 b/l Psoas Abscess Patient was admitted after mechanical fall. She was found to have Klebsiella bacteremia; underwent treatment with iv cefazolin. Paitiet Underwent workup with MRI of thoracic spine, lumbar spine and brain MRI for altered mental status earlier in the hospitalization; no acute finding were seen. MRCP did not show any concern for cholangitis EEG showed generalized background slowing --Patient continued to report lower back pain for which she underwent lumbar MRI on 04/02; found to have acute discovertebral osteomyelitis at L4/L5. --CT abdomen and pelvis showed right psoas collection of 3 X 1.9cm, left psoas fluid collection of 2 X 1.4 cm. Prior hospitalist discussed with infectious disease on 04/05; recommend cefazolin 2 g every 8 hours; until May 14, 2024. Will need repeat MRI of the spine in 4 weeks after discharge. BMP, CBC every week. Need to follow-up with infectious disease in 8 to 12 weeks. PICC line placed -- Continue IV cefazolin Plan to discharge to rehab facility as able Continue antibiotics as recommended by infectious disease Alcoholic cirrhosis: Alcohol use disorder Likely hepatic encephalopathy due to cirrhosis- resolved Anasarca --Last EGD 2012 - no esophageal or gastric varices, mild portal gastropathy. Admitting LFT elevated --Recommend patient cease all alcohol use. Low-sodium diet. Avoid hep atotoxic's. --Avoid hepatotoxic agents as able --Reorient frequently to minimize any delirium Continue lactulose to have 3-4 good bowel movements per day Continue on rifaximin Needs outpatient EGD, colonoscopy Needs follow-up with hepatology as outpatient Monitor LFTs Appreciate GI input Titrate lactulose for 2-3 good bowel movements per day Started on Lasix ( on 04/06) and spironolactone( on 04/07) as patient has significant pitting edema bilaterally Aldactone held for now Appreciate nephrology input IV Lasix reduced to 20 mg every 6 hours Monitor volume status, daily weight, I's and O's, renal function closely Hyperkalemia Likely due to JOSSUE Hold potassium supplements Monitor electrolytes closely Demand ischemia: trop mildly elevated Likely demand ischemia 2/2 acute illness. Hyponatremia Likely due to volume overload Monitor sodium levels closely Sodium 132 today Portal vein thrombosis: Coumadin on hold Has significant thrombocytopenia INR therapeutic 2.7 today Compression fracture of body of thoracic vertebra: Compression fracture of lumbar vertebra: CT shows compression fractures T11-L1 MRI thoracic and lumbar above Orthopedic spine evaluated, no brace, She should lift no more than 5 pounds. C/w pain Mx. P/OT. Metatarsal fracture: Left foot XR shows: Mildly angulated transverse fractures at the necks of the second through fourth metatarsals. Ortho evaled, no sx Ix, recommends post op shoe for weight bearing x 1 month. no f/u needed per ortho. Acute on chronic anemia Subacute to chronic intramuscular hematomas H/O abdominal wall hematoma S/P PRBCs Monitor H&H and transfuse as needed Monitor CBC Hb 7.8 today Acute kidney injury Likely due to diuretics Monitor renal function Avoid nephrotoxic agents as able Appreciate nephrology input Cr 1.7 today DVT Px: INR therapeutic Hold Coumadin Code Status DNI/DNR Disposition Rehab as able Admission and Anticipated Discharge Date Admission Date: March 16, 2024 Subjective Patient is seen and examined at bedside Patient had a episode of nausea yesterday with minimal vomiting this morning Cr worse today Leg edema continues to improve Offers no other complaints today Denies any chest pain, dyspnea, nausea, vomiting, abdominal pain Review of Systems Review of Systems: All systems reviewed & are unremarkable except as noted in Subjective Physical Exam Physical Exam: Physical Exam: Vitals signs as noted above General Appearance:Obese, Ill appearing Head: normocephalic, Atraumatic Eyes: normal inspection, EOMI, +Icteric Neck: supple, Trachea midline Respiratory/Chest: Normal breath sounds, CTA, No accessory muscle use Cardiovascular: S1, S2, No murmur Abdomen/GI:Soft, Non tender, +Protuberant, Bowel sounds present Extremities/Musculoskeletal:normal inspection, Left Foot Ecchymosis, 2+ edema slowly improving Neurologic/Psych: Alert, awake, oriented, grossly no focal deficits Skin: normal color, warm,+Jaundice, + Multiple Ecchymosis Results & Data Results & Data Vital Signs (Past 12 Hours) Vital Signs Temp Pulse Pulse Resp BP Pulse Ox O2 Del Method 04/16/24 14:06 64 04/16/24 11:00 36.6 C 98 H 20 98/56 L 97 Room Air 04/16/24 08:00 70 04/16/24 07:31 Room Air 04/16/24 07:00 36.5 C 77 18 114/68 98 Room Air 04/16/24 03:49 36.4 C L 73 17 111/72 99 Room Air Laboratory Results Short CBC 04/16/24 Range/Units 07:32 Hgb 7.8 L (12.0-16.0) g/dl Hct 23.5 L (37.0-47.0) % BMP 04/16/24 07:32 Sodium 132 L Potassium 5.2 H Chloride 104 Carbon Dioxide 21 BUN 56 H Creatinine 1.77 H Glucose 145 H Calcium 8.4 L
[2024-04-16] MEDS ORDERED: FUROSEMIDE 40 MG/4 ML VIAL IV SCH (17:00)
[2024-04-17 07:39] LABS: Hematocrit (blood only) 21.8 % (37.0-47.0); Hemoglobin 7.3 g/dl (12.0-16.0)
[2024-04-17 07:43] LABS: BUN Creatinine Ratio 34.5 (10-20); Calcium 8.5 mg/dl (8.6-10.3); Creatinine Clr Calc Pharmacy 30.4 ml/min; Potassium 4.7 mmol/L (3.5-5.1)
[2024-04-17 07:54] LABS: INR 2.9 (0.9-1.1); Prothrombin Time 28.2 Seconds (9.0-12.0)
--- NOTE | 2024-04-17 10:08 | Nephrology Progress Note ---
Date of Service April 17, 2024 Assessment & Plan (1) JOSSUE (acute kidney injury): Plan: plateau'd stage 1 nonoliguric JOSSUE in the setting of obligate diuresis d/t massive volume overload; unable to start meaningful PT/rehab w/ extensive volume overload > currently beulah lift dependent 78-year-old female with extremely complicated comorbid disease history who has been in the hospital now for almost a month. Came in after she was found unresponsive with septicemia, extended critical illness. During that time, She did receive a lot of fluid. despite complicated course this hospitalization her renal function remained normal and creatinine was at/near baseline 0.9 until 04/10 when it went to 1.1, then up to 1.3 04/11. now creatinine has been rising for the last few days and is up to 1.8 x48 hrs. However she has massive edema / anasarca causing significant discomfort as well as skin leakage. given this she still does need to be diuresed, even at the expense of rising creatinine. her blood pressure currently is dropping to 90s, so far not for extended periods and HR today first time in 90s >> monitor; low threshold for midodrine if SBP consistently in 90s > > while a liver pt, low BP can still hurt kidneys >>changed lasix dosing to 20 > 30 mg IV q6h >>continue to monitor her input and output carefully. She currently has a purewick though it leaks often so I/O often incopmlete. -continue FR 1.5L -agree w/ holding K for now > daily bmp to monitor for toxicity on high dose lasix -daily STANDING weights when able (may be some time before she can do this); barring this consistent bed weights pls -daily bmp -recommend low Na diet but defer to primary after extended illness >>hgb dropping to 7.3 today >> if pRBC planned, recommend extra 40 mg dose lasix post -I ordered chest XRay given lung exam >> last Xray > 3 wks back Admission and Anticipated Discharge Date Admission Date: March 16, 2024 Subjective no acute interval events. up in chair (w/ beulah) today and feels good w/ this; denies sob, n/v, weakness; still generalized weakness, unaware of edema Review of Systems 2 Review of Systems: All systems reviewed & are unremarkable except as noted in Subjective Physical Exam 2 Constitutional: well developed and well nourished Eyes: EOM intact bilaterally ENMT: Mouth: + muffled voice and + dry oral mucous membranes Respiratory: normal respiratory effort Auscultation: + diminished lung sounds (R base markedly), + crackles (L base velcro/fine) and + rhonchi (occasional) Cardiovascular: Rate/Rhythm: regular rate and regular rhythm Extremities: + edema (3+ dependent and peripheral) Musculoskeletal: Extremities: strength 5/5 throughout Skin: no rashes, warm and dry Results & Data Vital Signs (Past 12 Hours) Vital Signs Temp Pulse Pulse Resp BP Pulse Ox O2 Del Method 04/17/24 07:46 37.0 C 82 18 104/52 L 98 Room Air 04/17/24 06:58 66 04/17/24 04:22 36.6 C 65 18 97/62 L 99 Room Air 04/16/24 23:26 36.6 C 63 102/51 L 98 Room Air 04/16/24 23:00 Room Air 04/16/24 22:24 64 Laboratory Results 04/17/24 06:45 04/17/24 06:45
[2024-04-17] MEDS: FUROSEMIDE 40 MG/4 ML VIAL IV SCH (11:40)
--- NOTE | 2024-04-17 14:29 | XRay Report ---
XR chest 1V portable HISTORY: 78 years-old Female ? R pleural effusion and pulmonary vasc congestion COMPARISON: Chest radiograph 03/28/2024 TECHNIQUE: AP view of the chest FINDINGS: Right-sided PICC distal tip projects over the right atrium. Cardiac silhouette is enlarged. No pneumo thorax, pleural effusion or pulmonary edema. Changes of the shoulders and spine. IMPRESSION: 1. Cardiomegaly without overt pulmonary edema. 2. Right-sided PICC in place. No pneumothorax. ACT 112: Negative or not required by law. The above report was generated using voice recognition software. It may contain grammatical, syntax o r spelling errors. Electronically signed by: Johny Fischer M.D. 04/17/2024 2:28 PM
--- NOTE | 2024-04-17 14:40 | Hospitalist Progress Note ---
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 She was found by her granddaughter incontinent of stool and urine on the day of presentation. She is being managed for the following: Severe Sepsis POA UTI Klebsiella bacteremia Acute discovertebral osteomyelitis L4-L5 b/l Psoas Abscess Patient was admitted after mechanical fall. She was found to have Klebsiella bacteremia; underwent treatment with iv cefazolin. Paitiet Underwent workup with MRI of thoracic spine, lumbar spine and brain MRI for altered mental status earlier in the hospitalization; no acute finding were seen. MRCP did not show any concern for cholangitis EEG showed generalized background slowing --Patient continued to report lower back pain for which she underwent lumbar MRI on 04/02; found to have acute discovertebral osteomyelitis at L4/L5. --CT abdomen and pelvis showed right psoas collection of 3 X 1.9cm, left psoas fluid collection of 2 X 1.4 cm. Prior hospitalist discussed with infectious disease on 04/05; recommend cefazolin 2 g every 8 hours; until May 14, 2024. Will need repeat MRI of the spine in 4 weeks after discharge. BMP, CBC every week. Need to follow-up with infectious disease in 8 to 12 weeks. PICC line placed -- Continue IV cefazolin Plan to discharge to rehab facility as able Continue antibiotics as recommended by infectious disease Alcoholic cirrhosis: Alcohol use disorder Likely hepatic encephalopathy due to cirrhosis- resolved Anasarca --Last EGD 2012 - no esophageal or gastric varices, mild portal gastropathy. Admitting LFT elevated --Recommend patient cease all alcohol use. Low-sodium diet. Avoid hep atotoxic's. --Avoid hepatotoxic agents as able --Reorient frequently to minimize any delirium Continue lactulose to have 3-4 good bowel movements per day Continue on rifaximin Needs outpatient EGD, colonoscopy Needs follow-up with hepatology as outpatient Monitor LFTs Appreciate GI input Titrate lactulose for 2-3 good bowel movements per day Started on Lasix ( on 04/06) and spironolactone( on 04/07) as patient has significant pitting edema bilaterally Aldactone held for now Appreciate nephrology input Monitor volume status, daily weight, I's and O's, renal function closely IV Lasix increased to 30 mg every 6 hours Continue IV diuresis per nephrology Hyperkalemia Likely due to JOSSUE Hold potassium supplements Monitor electrolytes closely Demand ischemia: trop mildly elevated Likely demand ischemia 2/2 acute illness. Hyponatremia Likely due to volume overload Monitor sodium levels closely Sodium 131 today Portal vein thrombosis: Coumadin on hold Has significant thrombocytopenia INR therapeutic 2.9 today Compression fracture of body of thoracic vertebra: Compression fracture of lumbar vertebra: CT shows compression fractures T11-L1 MRI thoracic and lumbar above Orthopedic spine evaluated, no brace, She should lift no more than 5 pounds. C/w pain Mx. P/OT. Metatarsal fracture: Left foot XR shows: Mildly angulated transverse fractures at the necks of the second through fourth metatarsals. Ortho evaled, no sx Ix, recommends post op shoe for weight bearing x 1 month. no f/u needed per ortho. Acute on chronic anemia Subacute to chronic intramuscular hematomas H/O abdominal wall hematoma S/P PRBCs Monitor H&H and transfuse as needed Monitor CBC Hb 7.3 today Denies any bleeding issues currently Acute kidney injury Likely due to diuretics Monitor renal function Avoid nephrotoxic agents as able Appreciate nephrology input Cr 1.7 today Creatinine level stable DVT Px: INR therapeutic Hold Coumadin Code Status DNI/DNR Disposition Rehab as able Admission and Anticipated Discharge Date Admission Date: March 16, 2024 Subjective Patient is seen and examined at bedside Subjectively feels well Offers no new complaints Still has significant leg edema Cr stable Denies any chest pain, dyspnea, nausea, vomiting, abdominal pain Review of Systems Review of Systems: All systems reviewed & are unremarkable except as noted in Subjective Physical Exam Physical Exam: Physical Exam: Vitals signs as noted above General Appearance:Obese, Ill appearing Head: normocephalic, Atraumatic Eyes: normal inspection, EOMI, +Icteric Neck: supple, Trachea midline Respiratory/Chest: Normal breath sounds, CTA, No accessory muscle use Cardiovascular: S1, S2, No murmur Abdomen/GI:Soft, Non tender, +Protuberant, Bowel sounds present Extremities/Musculoskeletal:normal inspection, Left Foot Ecchymosis, 2+ edema slowly improving Neurologic/Psych: Alert, awake, oriented, grossly no focal deficits Skin: normal color, warm,+Jaundice, + Multiple Ecchymosis Results & Data Results & Data Vital Signs (Past 12 Hours) Vital Signs Temp Pulse Pulse Resp BP BP Pulse Ox 04/17/24 11:44 36.6 C 63 19 95/60 L 97 04/17/24 07:46 37.0 C 82 18 104/52 L 98 04/17/24 06:58 66 04/17/24 04:22 36.6 C 65 18 97/62 L 99 O2 Del Method 04/17/24 11:44 Room Air 04/17/24 07:46 Room Air 04/17/24 06:58 04/17/24 04:22 Room Air Laboratory Results Short CBC 04/17/24 Range/Units 06:45 Hgb 7.3 L (12.0-16.0) g/dl Hct 21.8 L (37.0-47.0) % BMP 04/17/24 06:45 Sodium 131 L Potassium 4.7 Chloride 102 Carbon Dioxide 22 BUN 61 H Creatinine 1.77 H Glucose 88 Calcium 8.5 L
[2024-04-17] MEDS: LACTULOSE 200GM/700ML WTR ENEMA PR PRN (18:32)
[2024-04-18] MEDS ORDERED: MELATONIN 3 MG TAB PO PRN (01:21)
[2024-04-18 07:28] LABS: INR 3.2 (0.9-1.1); Prothrombin Time 31.6 Seconds (9.0-12.0)
[2024-04-18 07:32] LABS: Hematocrit (blood only) 20.1 % (37.0-47.0); Hemoglobin 6.9 g/dl (12.0-16.0); Mean Corpuscular Hemoglobin 36.3 pg (25.0-34.0); Mean Corpuscular Hgb Conc 34.3 g/dL (32.0-36.0); Mean Corpuscular Volume 105.8 fL (80.0-100.0); Mean Platelet Volume 12.3 fL (9.4-12.4); Platelet Count 67 K/uL (130-400); RDW Coefficient of Variation 21.7 % (11.5-14.5); RDW Standard Deviation 83.2 fL (36.4-46.3); White Blood Count 10.97 K/ul (4.8-10.8)
[2024-04-18 07:57] LABS: BUN Creatinine Ratio 37.3 (10-20); Calcium 8.5 mg/dl (8.6-10.3); Creatinine Clr Calc Pharmacy 29.1 ml/min; Potassium 4.5 mmol/L (3.5-5.1)
--- NOTE | 2024-04-18 08:54 | Hospitalist Progress Note ---
Date of Service April 18, 2024 Assessment & Plan (1) Syncope: Plan Per previous provider w/ addendum Patient is a 78 yr female with PMH of alcoholic cirrhosis, portal venous thrombosis anticoagulated on Coumadin, HTN, spur cell anemia due to liver dis ease presented to the ED after being found by her family after a fall. She was found by her granddaughter incontinent of stool and urine on the day of presentation. She is being managed for the following: Severe Sepsis POA UTI Klebsiella bacteremia Acute discovertebral osteomyelitis L4-L5 b/l Psoas Abscess Patient was admitted after mechanical fall. She was found to have Klebsiella bacteremia; underwent treatment with iv cefazolin. Pt Underwent workup with MRI of thoracic spine, lumbar spine and brain MRI for altered mental status earlier in the hospitalization; no acute finding were seen. MRCP did not show any concern for cholangitis EEG showed generalized background slowing --Patient continued to report lower back pain for which she underwent lumbar MRI on 04/02; found to have acute discovertebral osteomyelitis at L4/L5. --CT abdomen and pelvis showed right psoas collection of 3 X 1.9cm, left psoas fluid collection of 2 X 1.4 cm. Prior hospitalist discussed with infectious disease on 04/05; recommend cefazolin 2 g every 8 hours; until May 14, 2024. Will need repeat MRI of the spine in 4 weeks after discharge. BMP, CBC every week. Need to follow-up with infectious disease in 8 to 12 weeks. PICC line placed -- Continue IV cefazolin Plan to discharge to rehab facility as able Continue antibiotics as recommended by infectious disease Alcoholic cirrhosis: Alcohol use disorder Likely hepatic encephalopathy due to cirrhosis- resolved Anasarca --Last EGD 2012 - no esophageal or gastric varices, mild portal gastropathy. Admitting LFT elevated --Recommend patient cease all alcohol use. Low-sodium diet. Avoid hepatotoxic's. --Avoid hepatotoxic agents as able --Reorient frequently to minimize any delirium Continue lactulose to have 3-4 good bowel movements per day Continue on rifaximin Needs outpatient EGD, colonoscopy Needs follow-up with hepatology as outpatient Monitor LFTs Appreciate GI input Titrate lactulose for 2-3 good bowel movements per day Started on Lasix ( on 04/06) and spironolactone( on 04/07) as patient has significant pitting edema bilaterally Aldactone held for now Appreciate nephrology input Monitor volume status, daily weight, I's and O's, renal function closely Continue IV diuresis per nephrology Hyperkalemia Likely due to JOSSUE Hold potassium supplements Monitor electrolytes closely Demand ischemia: trop mildly elevated Likely demand ischemia 2/2 acute illness. Hyponatremia Likely due to volume overload Monitor sodium levels closely Sodium 133 today Portal vein thrombosis: Coumadin on hold Has significant thrombocytopenia INR therapeutic 3.2 today Compression fracture of body of thoracic vertebra: Compression fracture of lumbar vertebra: CT shows compression fractures T11-L1 MRI thoracic and lumbar above Orthopedic spine evaluated, no brace, She should lift no more than 5 pounds. C/w pain Mx. P/OT. Metatarsal fracture: Left foot XR shows: Mildly angulated transverse fractures at the necks of the second through fourth metatarsals. Ortho evaled, no sx Ix, recommends post op shoe for weight bearing x 1 month. no f/u needed per ortho. Acute on chronic anemia Subacute to chronic intramuscular hematomas H/O abdominal wall hematoma S/P PRBCs Monitor H&H and transfuse as needed Monitor CBC Hgb 6.9 today -> plan to transfuse 1 unit of pRBC (04/18/24) Denies any bleeding issues currently Acute kidney injury Likely due to diuretics Monitor renal function Avoid nephrotoxic agents as able Appreciate nephrology input Cr 1.85 today Nephrology following closely DVT Px: INR therapeutic Hold Coumadin Code Status DNI/DNR Disposition Rehab as able Admission and Anticipated Discharge Date Admission Date: March 16, 2024 Subjective Patient seen in follow up of Klebsiella bacteremia, vert. disc osteo, etc., now with JOSSUE Hgb 6.9 this AM - discussed blood transfusion w/ the pt - pt would like to proceed, 1 unit of pRBC ordered Still very weak but otherwise denies any fever, chills, chest pain, shortness of breath or abdominal pain Cr increased, nephrology following Review of Systems Review of Systems: All systems reviewed & are unremarkable except as noted in Subjective Physical Exam Physical Exam: General Appearance:Obese, Ill appearing Head: normocephalic, Atraumatic Eyes: normal inspection, EOMI, +Icteric Neck: supple Respiratory/Chest: Normal breath sounds, CTA, No accessory muscle use Cardiovascular: S1, S2, No murmur Abdomen/GI:Soft, Non tender, +Protuberant, Bowel sounds present Extremities/Musculoskeletal:normal inspection, Left Foot Ecchymosis, 2+ edema Neurologic/Psych: Alert, awake, answers simple questions appropriately Skin: warm,+Jaundice, + Multiple Ecchymosis Results & Data Results & Data Vital Signs (Past 12 Hours) Vital Signs Temp Pulse Pulse Resp BP Pulse Ox O2 Del Method 04/18/24 07:55 36.5 C 70 18 110/74 98 Room Air 04/18/24 07:04 62 04/18/24 02:30 36.2 C L 63 20 98/61 L 99 Room Air 04/17/24 22:47 36.3 C L 62 18 100/63 98 Room Air 04/17/24 21:58 63 Laboratory Results 04/18/24 04/17/24 Range/Units 06:41 16:30 WBC 10.97 H (4.8-10.8) K/ul RBC 1.90 L (4.20-5.40) M/uL Hgb 6.9 L* (12.0-16.0) g/dl Hct 20.1 L* (37.0-47.0) % MCV 105.8 H (80.0-100.0) fL MCH 36.3 H (25.0-34.0) pg MCHC 34.3 (32.0-36.0) g/dL RDW Std Deviation 83.2 H (36.4-46.3) fL RDW Coeff of Martinez 21.7 H (11.5-14.5) % Plt Count 67 L (130-400) K/uL MPV 12.3 (9.4-12.4) fL PT 31.6 H (9.0-12.0) Seconds INR 3.2 H (0.9-1.1) Sodium 133 L (136-145) mmol/L Potassium 4.5 (3.5-5.1) mmol/L Chloride 104 (98-107) mmol/L Carbon Dioxide 20 L (21-32) mmol/L Anion Gap 9 (3-11) BUN 69 H (6-23) mg/dl Creatinine 1.85 H (0.6-1.2) mg/dl Est Cr Clr Drug Dosing 29.1 ml/min eGFR 27.91 BUN/Creatinine Ratio 37.3 H (10-20) Glucose 78 (70-99(Fasting)) mg/dl Calcium 8.5 L (8.6-10.3) mg/dl Ammonia 137.0 H (18-72) umol/L Medications Administered Current Inpatient Medications Acetaminophen (Acetaminophen 500 Mg Tab) 500 mg PO Q6H PRN PRN Reason: fever/pain Stop: 05/05/24 21:02 Last Admin: 04/10/24 20:53 Dose: 500 mg Folic Acid (Folic Acid 1 Mg Tab) 1 mg PO QAM MIN Stop: 06/09/24 08:59 Last Admin: 04/18/24 08:36 Dose: 1 mg Furosemide (Furosemide 40 Mg/4 Ml Vial) 30 mg IV Q6 MIN Stop: 05/17/24 11:59 Last Admin: 04/18/24 05:56 Dose: 30 mg Hydromorphone HCl (Hydromorphone Inj 0.5 Mg/0.5 Ml Syr) 0.25 mg IV Q6H PRN PRN Reason: Pain Stop: 04/19/24 07:46 Cefazolin Sodium (Ancef 2000mg) 2,000 mg in 15 mls @ 3.75 mls/min IV Q8H MIN Stop: 05/17/24 15:59 Last Admin: 04/18/24 08:37 Dose: 3.75 mls/min Lactulose (Lactulose Syrup 20 Gm/30 Ml Udc) 20 gm PO TID MIN Stop: 04/18/24 20:59 Last Admin: 04/18/24 08:40 Dose: 20 gm Lactulose (Lactulose 200gm/700ml Wtr Enema) 200 gm IN DAILY PRN PRN Reason: Hyperammonia Stop: 05/18/24 08:59 Last Admin: 04/17/24 18:32 Dose: 200 gm Lidocaine (Lidocaine 5% 1 Patch) 1 patch TD QAM MIN Stop: 05/11/24 05:34 Last Admin: 04/18/24 08:36 Dose: 1 patch Magnesium Chloride (Magnesium Chloride W/Calcium 64mg Delayed Rel Tab) 64 mg PO BID MIN Stop: 05/14/24 09:29 Last Admin: 04/15/24 08:18 Dose: 64 mg Melatonin (Melatonin 3 Mg Tab) 3 mg PO HS PRN PRN Reason: Sleep Stop: 05/18/24 01:20 Metoprolol Tartrate (Metoprolol Tartrate 25 Mg Tab) 12.5 mg PO BID [facility] Stop: 05/13/24 16:54 Last Admin: 04/18/24 08:37 Dose: 12.5 mg Metoprolol Tartrate (Metoprolol Tartrate 1 Mg/Ml Vial) 2.5 mg IV Q6 PRN PRN Reason: Tachycardia HR>130 Stop: 05/13/24 17:59 Miconazole Nitrate (Miconazole Nitrate Powder 85 Gm) 1 appln EXT PRN PRN PRN Reason: Affected Skin Folds Stop: 05/05/24 01:11 Last Admin: 04/13/24 01:01 Dose: 1 appln Olanzapine (Olanzapine 10 Mg/2.1 Ml Sdv) 5 mg IM Q6H PRN PRN Reason: Agitation Stop: 05/02/24 00:23 Last Admin: 04/02/24 00:50 Dose: 5 mg Potassium Chloride (Potassium Chloride Crtab 20 Meq Tabcr) 20 meq PO BID [facility] Stop: 05/13/24 11:29 Last Admin: 04/16/24 09:50 Dose: Not Given Rifaximin (Rifaximin 550 Mg Tablet) 550 mg PO BID [facility] Stop: 04/19/24 20:59 Last Admin: 04/18/24 08:36 Dose: 550 mg Thiamine HCl (Thiamine Hcl 100 Mg Tab) 100 mg PO QAM [facility] Stop: 05/11/24 08:59 Last Admin: 04/18/24 08:36 Dose: 100 mg
[2024-04-18] MEDS ORDERED: SODIUM CHLORIDE 0.9% 250 ML IV PRN (10:17)
--- NOTE | 2024-04-18 12:40 | Nephrology Progress Note ---
Date of Service April 18, 2024 Assessment & Plan (1) JOSSEU (acute kidney injury): Plan: plateau'd x 72 hrs stage 1 nonoliguric JOSSUE in the setting of obligate diuresis d/t massive volume overload; unable to start meaningful PT/rehab w/ extensive volume overload > currently beulah lift dependent; now needing pRBC which will complicate volume status further. also contributing could be osteomyelitis not present at admission but emerging late last month along w/ BL psoas abscesses 78-year-old female with extremely complicated comorbid disease history who has been in the hospital since 03/16 after she was found unresponsive with septicemia; extended severe illness w/ aggressive fluid resuscitation. creatinine was at/near baseline 0.9 until 04/10 when it went to 1.1, then up to 1.3 04/11. now creatinine has been rising for the last few days and is up to 1.9 today. has massive edema / anasarca causing significant discomfort as well as skin leakage. given this she still does need to be diuresed, even at the expense of rising creatinine BUT for today w/ new hypotension will hold. her blood pressure had been dropping to 90s, so far not for extended periodsand improved for now >> monitor 10 minute discussion w/ granddaughter and another 10 minute discussion w/ pt and granddaugther; pt status review multiple times today w/ Dr Valencia and w/ RN >> SBP 70s most recently despite pRBC. >stop lasix except one dose after pRBC IF SBP > 100 >start midodrine 5 mg tid >>continue to monitor her input and output carefully. She currently has a purewick though it leaks often so I/O often incomplete. -continue FR 1.5L -continue to hold K for now > daily bmp to monitor for toxicity >> may increase w/o lasix -daily STANDING weights when able (may be some time before she can do this); barring this consistent bed weights pls -daily bmp -recommend low Na diet but defer to primary after extended illness >>hgb dropping to 6.9 today >> lasix dose timing as above w/ pRBC -CXR reassuring despite lung exam >> ? need for further sepsis w/u given hypotension today Above plan reviewed w/ Dr Valencia repeatedly in person and via TText re pRBC, lasix dosing, UOP and BP trends, infectious hx since admission, midodrine recommendations; we are in agreement Admission and Anticipated Discharge Date Admission Date: March 16, 2024 Subjective for pRBC today and noted this am to have asymptomatic hypotension and decreased UOP (uop challenging to track b/c of oozing near pelvis/low abdomen/upper thighs). no sob, no n/v Review of Systems 2 Review of Systems: All systems reviewed & are unremarkable except as noted in Subjective Physical Exam 2 Constitutional: well developed, + frail appearing, comfortable and + malnourished; no acute distress Eyes: EOM intact bilaterally; sclerae not anicteric ENMT: Mouth: + muffled voice and + dry oral mucous membranes Respiratory: normal respiratory effort Auscultation: lungs clear to auscultation bilaterally and + diminished lung sounds Cardiovascular: Rate/Rhythm: regular rate and regular rhythm Extremities: + edema (3+ dependent ) Musculoskeletal: Extremities: strength 5/5 throughout Skin: no rashes, warm and dry Results & Data Vital Signs (Past 12 Hours) Vital Signs Temp Pulse Pulse Resp BP Pulse Ox O2 Del Method 04/18/24 11:00 36.6 C 70 16 120/61 97 Room Air 04/18/24 07:55 36.5 C 70 18 110/74 98 Room Air 04/18/24 07:04 62 04/18/24 02:30 36.2 C L 63 20 98/61 L 99 Room Air Laboratory Results 04/18/24 06:41 04/18/24 06:41 Diagnostic Findings CXR (images personally reviewed) w/ mild vascular congestion; no edema, no effusion or infiltrate
--- NOTE | 2024-04-18 15:09 | XRay Report ---
SINGLE VIEW CHEST CLINICAL HISTORY: Sepsis. FINDINGS: An AP, portable, upright chest radiograph is compared to study dated 04/17/2024. Correlation is made with chest CT dated 03/16/2024. The examination is degraded by portable technique, apical lord otic positioning, and patient rotation. A right-sided PICC line is unchanged in position. The heart i s enlarged. The pulmonary vasculature is noncongested. The lungs and pleural spaces are clear. No pne umothorax is seen. The skeletal structures are osteopenic. The bony thorax is grossly intact. IMPRESSION: Cardiomegaly with no active disease in the chest. ACT 112: Negative or not required by law. Electronically signed by: Sj Noriega M.D. 04/18/2024 3:08 PM
[2024-04-18] MEDS: CEFEPIME 2000MG 2,000 MG/20 ML SYR IV ONE (15:30)
[2024-04-18] MEDS: MIDODRINE HCL 2.5 MG TAB PO STA (15:32)
[2024-04-18] MEDS: DAPTOmycin 500 MG in SYRINGE 0 ML IV ONE (15:32)
[2024-04-18] MEDS: FUROSEMIDE 40 MG/4 ML VIAL IV ONE (16:38)
--- NOTE | 2024-04-18 16:46 | CT Scan Report ---
CT abd pelvis wo con CLINICAL HISTORY: hypotension, anemia, psoas abscess, disc osteo TECHNIQUE: Helical axial images of the abdomen and pelvis were obtained. Automated dose lowering tech niques and/or adjustment according to patient size were utilized for this exam. This exam was perfor med without intravenous contrast. CT DOSE: 1409.67 mGy.cm COMPARISON: Comparison is made to CT abdomen pelvis 04/01/2024 FINDINGS: Lower chest: Bibasilar atelectasis versus scarring is seen. Liver: Nodular contour of the liver is seen compatible with cirrhosis. Gallbladder and biliary tree: Cholelithiasis is seen without evidence of cholecystitis. No intra- or extrahepatic biliary ductal dilation. Pancreas: Unremarkable, no focal lesions. Spleen: Unremarkable. Adrenals: Unremarkable. Kidneys and ureters: Unremarkable. Bladder: Unremarkable. Reproductive organs: Patient is status post hysterectomy. Bowel: Diverticulosis is seen without diverticulitis. The appendix is normal. Lymph nodes Retroperitoneal: Unremarkable. Pelvic: Unremarkable. Mesenteric: Unremarkable. Peritoneum: Mild ascites is seen. Right greater than left psoas hypodensities are seen. Evaluation is limited by noncontrast technique however likely represent stable psoas abscesses. Vessels: Atherosclerotic calcifications are seen. Varices are seen most prominently about the stomach . Abdominal wall: Right abdominal wall stranding is seen. Bones: Degenerative changes in the visualized spine. IMPRESSION: 1. Evaluation is limited by noncontrast technique, however silhouette is hypodensities are likely co mpatible with stable abscesses. 2. Cirrhosis with stigmata of portal hypertension. 3. Diverticulosis without diverticulitis. 4. Additional findings as above. ACT 112: Negative or not required by law. Electronically signed by: Mikel Hairston M.D. 04/18/2024 4:44 PM
[2024-04-18] MEDS ORDERED: STAT IV Infusion **Titration per Protocol STA ×2 (16:48→18:01)
[2024-04-18] MEDS: NOREPINEPHRINE/D5W 4 MG/250 ML PLCT IV SCH (17:04)
[2024-04-18] MEDS: MIDODRINE HCL 2.5 MG TAB PO SCH (17:05)
--- NOTE | 2024-04-18 18:16 | Critical Care Consultation ---
Date of Consultation April 18, 2024 Assessment & Plan (1) JOSSUE (acute kidney injury): (2) Bacteremia due to Klebsiella pneumoniae: (3) Cirrhosis: (4) Portal vein thrombosis: (5) Acute anemia: (6) Shock circulatory: (7) Increased ammonia level: (8) Psoas abscess: (9) Vertebral osteomyelitis: Plan Reason Critically Ill: 78-year-old female was admitted to the hospital 03/16/2024 for metabolic encephalopathy and mechanical fall, Past medical history: Alcoholic liver cirrhosis, hypertension, portal vein thrombosis on warfarin During the course of the admission patient was found to have bacteremia Klebsiella, she was treated with antibiotics, she developed psoas abscesses and acute discovertebral osteomyelitis L4-L5 Transferred to ICU for shock Neuro - [facility] ICU: Negative Cardiac - -- Shock Combination of sepsis, random cortisol was only 8.36 Continue with antibiotics which has been broadened to addition of daptomycin Hydrocortisone added 04/18/2024 Respiratory - -- No acute issues Saturating well on room air GI - -- Liver cirrhosis Monitor ammonia Continue with lactulose and rifaximin RENAL/LYTES - -- JOSSUE Follow-up urine lites, there is a possibility the patient is developing hepatorenal syndrome Monitor BUN/creatinine Avoid nephrotoxic medications Strict ins and outs --Hyponatremia Likely secondary to hypervolemia from cirrhosis Continue to monitor ENDO - -- ICU hypoglycemia protocol HEME - -- Acute on chronic blood loss anemia CT abdomen pelvis 04/18/2024 does not show any clear signs of bleeding S/p 1 unit PRBC 04/18/2024 --Portal vein thrombosis Usually on warfarin at home ID - --Multiple bilateral psoas abscesses with L4-L5 discovertebral osteomyelitis On antibiotics as per ID -- Klebsiella bacteremia Pansensitive Appreciated on 03/16/2024, repeat blood culture 03/30/2024 negative --E. coli UTI Pansensitive --DNR/DNI --Prophylaxis VTE: Warfarin GI: Pantoprazole Lines: Right arm PICC Diet: N.p.o. Plan: Loading dose of hydrocortisone given the random cortisol was only 8.9 I will add vasopressin to the patient's regimen this will help splanchnic vasoconstriction and might help with hepatorenal syndrome Continue with Levophed to keep MAP greater than 65 Follow-up repeat blood cultures No intubation or CPR if there is any deterioration as per the patient's patient's son, okay to use vasopressors Hold warfarin given the INR is 3.2 I have personally spent 62 minutes of critical care time in the direct management of this patient. This is a life/limb threatening event. This includes time spent evaluating patient, direct bedside care, chart review, placing orders, interpretation of diagnostic studies, discussion with consultants, patient, and family members, as well as other required patient management activities. This time is exclusive of all separately billable procedures, and teaching time and separate from and in addition to any other critical care service time. History of Present Illness Attending Physician: Malachi Valencia MD History of Present Illness 78-year-old female was admitted to the hospital 03/16/2024 for metabolic encephalopathy and mechanical fall Past medical history: Alcoholic liver cirrhosis, hypertension, portal vein thrombosis on warfarin During the course of the admission patient was found to have bacteremia Klebsiella, she was treated with antibiotics, she developed psoas abscesses and acute discovertebral osteomyelitis L4-L5 Plan was to continue treatment with antibiotics. ICU were consulted as patient's blood pressure was on the lower side and she was hypothermic She also developed JOSSUE and was being treated with diuretics by nephrology. At the time of examination in the ICU she was on 0.07 of Levophed, systolic blood pressure was still in the mid to high 80s with MAP in the low 60s. She was icteric but she was answering all the questions. Patient's son was also in the room to help with history. She denied any abdominal pain, no chest pain, no shortness of breath. No nausea vomiting No unusual headache or blurry vision. Allergies Allergy/AdvReac Type Severity Reaction Status Date / Time Penicillins Allergy Severe UNKNOWN Verified 03/16/24 10:27 aspirin Allergy Intermediate HIVES Verified 03/16/24 10:27 Home Medications Medication Instructions Recorded Confirmed Type atenolol 25 mg tablet 25 mg PO QAM 07/14/20 03/16/24 History [id number] 25 30 ml PO Q4 PRN Cold Symptoms 07/14/20 03/16/24 History mg-10 mg-650 mg/30 mL oral liquid multivitamin with minerals-folic 1 tab PO DAILY ##0 07/14/20 03/16/24 History acid 80 mcg chewable tablet warfarin 1 mg tablet 1 mg PO DAILY 03/16/24 03/16/24 History Patient History Medical History Portal vein thrombosis Alcoholic cirrhosis Anemia 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 Multiple rib fractures Depression Anticoagulated on Coumadin Hypertension Surgical History No pertinent past surgical history Social History Smoking Status: Never smoker Hx Alcohol Use: Yes Alcohol type: wine Hx Substance Use: No Preferred Language: Cuban Communication Ability: Effective Banking Analyst Required: No Beliefs That Will Affect Care: None Current Living Situation: Family Feels Safe at Home: Yes Safety Concerns: Feels Safe At This Time Assistive Devices: Cane and Walker Review of Systems 2 Review of Systems: All systems reviewed & are unremarkable except as noted in HPI & below Physical Exam 2 Physical Exam: Constitutional: No acute distress HEENT: EOMI, PERRLA, scleral icterus Respiratory system: Good air entry bilaterally, no wheeze, no rhonchi, mild crackles bilateral lower lobes CVS: S1-S2 positive, no murmurs or gallops Abdomen: Soft, nontender, nondistended, positive bowel sounds x4, obese Extremities: +2 pulses bilaterally radialis/ dorsalis pedis, no cyanosis, +3 pitting edema bilateral lower extremity Neuro: Awake alert oriented x3 Psych: Normal mood and affect G/U: Pure wick Skin: no rashes, warm and dry Lymphatic: no cervical or axillary lymphadenopathy Results & Data Results & Data Vital Signs (Past 12 Hours) Vital Signs Temp Pulse Pulse Resp BP BP BP 04/18/24 17:42 71 22 04/18/24 17:41 87/48 L 04/18/24 17:39 76 17 04/18/24 17:38 84/42 L 04/18/24 17:38 84/42 L 04/18/24 17:38 84/42 L 04/18/24 17:36 74 13 04/18/24 17:30 69 17 04/18/24 17:30 88/39 L 04/18/24 17:30 88/39 L 04/18/24 17:21 69 15 04/18/24 17:12 78/40 L 04/18/24 17:09 72 13 04/18/24 17:06 73 14 04/18/24 17:01 55/27 L 04/18/24 17:01 55/27 L 04/18/24 16:48 70 16 04/18/24 16:45 69 15 04/18/24 16:45 73/36 L 04/18/24 16:45 73/36 L 04/18/24 16:45 73/36 L 04/18/24 16:42 65 13 04/18/24 16:36 72 13 04/18/24 16:32 88/52 L 04/18/24 16:32 88/52 L 04/18/24 16:32 88/52 L 04/18/24 16:27 75 13 04/18/24 16:27 95/44 L 04/18/24 16:27 04/18/24 16:00 34.7 C L 74 16 101/52 L 04/18/24 15:30 79 10 L 04/18/24 15:25 34.3 C L 68 16 88/53 L 04/18/24 15:18 70 9 L 04/18/24 15:03 70 13 04/18/24 15:02 34.5 C L 70 91/57 L 04/18/24 14:46 34.5 C L 68 16 84/47 L 04/18/24 14:35 34.8 C L 04/18/24 14:28 88/50 L 04/18/24 14:02 35.4 C L 04/18/24 14:02 67 17 70/40 L 04/18/24 13:32 36.4 C L 70 17 80/48 L 04/18/24 13:17 36.4 C L 65 18 96/44 L 04/18/24 12:56 36.5 C 57 L 18 71/38 L 04/18/24 11:00 36.6 C 70 16 120/61 04/18/24 07:55 36.5 C 70 18 110/74 04/18/24 07:04 62 Pulse Ox O2 Del Method 04/18/24 17:42 96 04/18/24 17:41 04/18/24 17:39 96 04/18/24 17:38 04/18/24 17:38 04/18/24 17:38 04/18/24 17:36 94 04/18/24 17:30 96 04/18/24 17:30 04/18/24 17:30 04/18/24 17:21 93 04/18/24 17:12 04/18/24 17:09 99 04/18/24 17:06 93 04/18/24 17:01 04/18/24 17:01 04/18/24 16:48 97 04/18/24 16:45 99 04/18/24 16:45 04/18/24 16:45 04/18/24 16:45 04/18/24 16:42 100 04/18/24 16:36 99 04/18/24 16:32 04/18/24 16:32 04/18/24 16:32 04/18/24 16:27 98 04/18/24 16:27 04/18/24 16:27 97 04/18/24 16:00 97 Room Air 04/18/24 15:30 04/18/24 15:25 95 04/18/24 15:18 04/18/24 15:03 04/18/24 15:02 04/18/24 14:46 100 Room Air 04/18/24 14:35 04/18/24 14:28 04/18/24 14:02 04/18/24 14:02 99 04/18/24 13:32 98 04/18/24 13:17 97 04/18/24 12:56 100 04/18/24 11:00 97 Room Air 04/18/24 07:55 98 Room Air 04/18/24 07:04 Laboratory Results 04/18/24 06:41 04/18/24 06:41 Coding Level of Care Code 73396 CRITICAL CARE 1ST 30-74M Diagnoses JOSSUE (acute kidney injury) N17.9 Bacteremia due to Klebsiella pneumoniae R78.81; B96.1 Cirrhosis K74.60 Hepatic cirrhosis type: unspecified hepatic cirrhosis Portal vein thrombosis I81 Acute anemia D64.9 Shock circulatory R57.9 Increased ammonia level R79.89 Psoas abscess K68.12 Vertebral osteomyelitis M46.20 (3) Cirrhosis Hepatic cirrhosis type: unspecified hepatic cirrhosis
[2024-04-18] MEDS: VASOPRESSIN 20 UNITS in 0.9 % SODIUM CHLORIDE 100 ML IV SCH (18:41)
[2024-04-18] MEDS: HYDROCORTISONE SOD IV STA (18:41)
[2024-04-18] MEDS: PANTOprazole 40 MG in SYRINGE 0 ML IV SCH (19:12)
[2024-04-18 21:57] LABS: Appearance Urine Turbid (Clear); Bacteria Urine Automated 2+ (None Seen); Bilirubin Urine 3+ (Negative); Blood Urine 2+ (Negative); Calcium Oxalate Crystals Urine Present (None Prsent); Cast Urine Automated >20 /lpf (0-2); Color Urine Dark Yellow; Glucose Urine UA Negative (Negative); Ketones Urine Negative (Negative); Leukocyte Esterase Urine 2+ (Negative); Nitrite Urine Positive (Negative); Protein Urine 1+ (Negative); RBC Urine Automated >20 /hpf (0-2); Specific Gravity Urine 1.017 (1.000-1.030); Urobilinogen Urine Negative (Negative); WBC Urine Automated 21-50 /hpf (0-5)
[2024-04-18 21:59] LABS: Creatinine Urine Random 55.8 mg/dl; Potassium Random Urine 54.1 mmol/L
[2024-04-18] MEDS: HYDROCORTISONE SOD 50 MG in SYRINGE 0 ML IV SCH (23:08)
[2024-04-19] MEDS: CEFEPIME 1000MG 1,000 MG/10 ML SYR IV SCH (02:13)
[2024-04-19 04:10] LABS: Hematocrit (blood only) 26.3 % (37.0-47.0); Hemoglobin 8.9 g/dl (12.0-16.0); Mean Corpuscular Hemoglobin 34.9 pg (25.0-34.0); Mean Corpuscular Hgb Conc 33.8 g/dL (32.0-36.0); Mean Corpuscular Volume 103.1 fL (80.0-100.0); Mean Platelet Volume 12.1 fL (9.4-12.4); Nucleated RBC # (auto) 0.02 K/uL (0.00-0.12); Nucleated RBC % (auto) 0.1 %; Platelet Count 78 K/uL (130-400); RDW Coefficient of Variation 23.9 % (11.5-14.5); RDW Standard Deviation 85.6 fL (36.4-46.3); Red Blood Count 2.55 M/uL (4.20-5.40); White Blood Count 18.46 K/ul (4.8-10.8)
[2024-04-19 04:20] LABS: Anion Gap 13 (3-11); BUN Creatinine Ratio 34.9 (10-20); Blood Urea Nitrogen 76 mg/dl (6-23); Calcium 8.1 mg/dl (8.6-10.3); Carbon Dioxide 15 mmol/L (21-32); Chloride 102 mmol/L (98-107); Creatinine Clr Calc Pharmacy 24.7 ml/min; Glucose 144 mg/dl (70-99(Fasting)); Potassium 5.2 mmol/L (3.5-5.1); Sodium 130 mmol/L (136-145)
[2024-04-19 04:29] LABS: INR 4.1 (0.9-1.1); Prothrombin Time 39.6 Seconds (9.0-12.0)
[2024-04-19 04:34] LABS: Alanine Aminotransferase < 3 U/L (7-52); Albumin Globulin Ratio 0.4 (0.9-2); Albumin Level 1.5 gm/dl (3.4-5.0); Alkaline Phosphatase 215 U/L (34-104); Aspartate Aminotransferase 145 U/L (13-39); Bilirubin,Total 11.5 mg/dl (0.2-1.0); Globulin 3.9 gm/dl (2.5-4.0); Magnesium 1.9 mg/dl (1.7-2.4); Phosphorus 6.4 mg/dl (2.5-4.9); Total Protein 5.4 gm/dl (6.0-8.3)
--- NOTE | 2024-04-19 07:39 | Critical Care Progress Note ---
Date of Service April 19, 2024 Assessment & Plan (1) JOSSUE (acute kidney injury): (2) Bacteremia due to Klebsiella pneumoniae: (3) Cirrhosis: (4) Portal vein thrombosis: (5) Acute anemia: (6) Shock circulatory: (7) Increased ammonia level: (8) Psoas abscess: (9) Vertebral osteomyelitis: Plan Reason Critically Ill: 78-year-old female was admitted to the hospital 03/16/2024 for metabolic encephalopathy and mechanical fall, Past medical history: Alcoholic liver cirrhosis, hypertension, portal vein thrombosis on warfarin During the course of the admission patient was found to have bacteremia Klebsiella, she was treated with antibiotics, she developed psoas abscesses and acute discovertebral osteomyelitis L4-L5 Transferred to ICU for shock Neuro - [facility] ICU: Negative Cardiac - -- Shock Combination of sepsis, random cortisol was only 8.36 Continue with antibiotics which has been broadened to addition of daptomycin Hydrocortisone added 04/18/2024 Respiratory - -- No acute issues Saturating well on room air GI - -- Liver cirrhosis Monitor ammonia Continue with lactulose and rifaximin RENAL/LYTES - -- JOSSUE Follow-up urine lites, there is a possibility the patient is developing hepatorenal syndrome Monitor BUN/creatinine Avoid nephrotoxic medications Strict ins and outs --Hyponatremia Likely secondary to hypervolemia from cirrhosis Continue to monitor ENDO - -- ICU hypoglycemia protocol HEME - -- Acute on chronic blood loss anemia CT abdomen pelvis 04/18/2024 does not show any clear signs of bleeding S/p 1 unit PRBC 04/18/2024 --Portal vein thrombosis Usually on warfarin at home ID - --Multiple bilateral psoas abscesses with L4-L5 discovertebral osteomyelitis On antibiotics as per ID -- Klebsiella bacteremia Pansensitive, was on cefazolin, changed to cefepime on 04/18/2024 Appreciated on 03/16/2024, repeat blood culture 03/30/2024 negative Got a dose of daptomycin on 04/18/2024 --E. coli UTI Pansensitive --DNR/DNI --Prophylaxis VTE: Warfarin GI: Pantoprazole Lines: Right arm PICC Diet: Clear liquids Plan: In/out: 1147, urine output 125 Patient's creatinine is getting worse Magnesium will be replaced. Lokelma will be given to the patient. For metabolic acidosis I will give her bicarb Continue with cefepime Seems to be more confused today compared to before leaving the ammonia level is normal. Overall prognosis of the patient is guarded. I have personally spent 40 minutes of critical care time in the direct management of this patient. This is a life/limb threatening event. This includes time spent evaluating patient, direct bedside care, chart review, placing orders, interpretation of diagnostic studies, discussion with consultants, patient, and family members, as well as other required patient management activities. This time is exclusive of all separately billable procedures, and teaching time and separate from and in addition to any other critical care service time. Admission and Anticipated Discharge Date Admission Date: March 16, 2024 Subjective Patient seen and examined at bedside. No acute distress, no adverse events overnight She was more confused today. Denied any headache, no chest pain, no abdominal pain No nausea vomiting Appetite is poor. Was on Levophed 0.06 and vasopressin 0.04 Review of Systems 2 Review of Systems: All systems reviewed & are unremarkable except as noted in Subjective Physical Exam 2 Physical Exam: Constitutional: No acute distress HEENT: EOMI, PERRLA, scleral icterus Respiratory system: Good air entry bilaterally, no wheeze, no rhonchi, mild crackles bilateral lower lobes CVS: S1-S2 positive, positive 2 out of 6 systolic murmur appreciated best at apex Abdomen: Soft, nontender, nondistended, positive bowel sounds x4, obese Extremities: +2 pulses bilaterally radialis/ dorsalis pedis, no cyanosis, +3 pitting edema bilateral lower extremity Neuro: Awake alert oriented to only self Psych: Normal mood and affect G/U: Heller catheter Skin: no rashes, warm and dry Lymphatic: no cervical or axillary lymphadenopathy Results & Data Results & Data Vital Signs (Past 12 Hours) Vital Signs Temp Pulse Resp BP Pulse Ox O2 Del Method 04/19/24 06:30 36.4 C L 66 14 105/44 L 97 Room Air 04/19/24 06:15 36.4 C L 66 14 106/53 L 97 Room Air 04/19/24 06:00 36.4 C L 67 12 97/49 L 96 Room Air 04/19/24 05:30 36.4 C L 66 15 103/49 L 97 Room Air 04/19/24 05:00 36.5 C 70 16 124/50 L 96 Room Air, BiPAP 04/19/24 04:45 63 104/48 L 04/19/24 04:30 65 103/53 L 04/19/24 04:15 36.4 C L 72 17 108/67 96 Room Air 04/19/24 04:00 64 13 107/47 L 96 Room Air 04/19/24 03:45 63 93/49 L 04/19/24 03:30 36.3 C L 68 16 103/51 L 95 Room Air 04/19/24 03:15 71 109/54 L 04/19/24 03:00 36.3 C L 64 17 103/63 97 Room Air 04/19/24 02:45 69 113/60 04/19/24 02:15 73 99/55 L 04/19/24 02:00 36.4 C L 66 14 95/54 L 96 Room Air 04/19/24 01:45 67 87/59 L 04/19/24 01:30 68 111/50 L 04/19/24 01:15 70 104/52 L 04/19/24 01:00 36.4 C L 74 12 103/59 L 96 Room Air 04/19/24 00:45 65 102/46 L 04/19/24 00:30 36.4 C L 69 14 93/62 L 95 Room Air 04/19/24 00:15 62 89/70 L 04/19/24 00:00 36.4 C L 65 18 99/54 L 97 Room Air 04/18/24 23:45 68 96/50 L 04/18/24 23:30 36.3 C L 63 14 103/51 L 96 Room Air 04/18/24 23:15 70 112/59 L 04/18/24 23:14 68 04/18/24 23:00 36.2 C L 67 18 97/44 L 97 Room Air 04/18/24 22:45 71 92/57 L 04/18/24 22:30 65 12 94/47 L 95 Room Air 04/18/24 22:15 36 C L 65 92/48 L 04/18/24 22:00 35.9 C L 74 17 91/47 L 97 Room Air 04/18/24 21:15 74 93/49 L 04/18/24 21:00 35.7 C L 69 12 93/48 L 96 Room Air 04/18/24 20:45 67 93/46 L 96 Room Air 04/18/24 20:30 65 18 113/49 L 96 Nasal Cannula 04/18/24 20:00 35.6 C L 04/18/24 20:00 71 12 122/84 100 Room Air 04/18/24 19:45 70 95/48 L Laboratory Results 04/19/24 03:46 04/19/24 03:46 Coding Level of Care Code 71927 CRITICAL CARE 1ST 30-74M Diagnoses JOSSUE (acute kidney injury) N17.9 Bacteremia due to Klebsiella pneumoniae R78.81; B96.1 Cirrhosis K74.60 Hepatic cirrhosis type: unspecified hepatic cirrhosis Portal vein thrombosis I81 Acute anemia D64.9 Shock circulatory R57.9 Increased ammonia level R79.89 Psoas abscess K68.12 Vertebral osteomyelitis M46.20 (3) Cirrhosis Hepatic cirrhosis type: unspecified hepatic cirrhosis
[2024-04-19] MEDS: SODIUM BICARB 8.4% INJ 50 MEQ/50 ML SYR IV ONE (07:45)
[2024-04-19] MEDS: SODIUM BICARB 8.4% INJ 50 MEQ/50 ML SYR IV STA (07:45)
--- NOTE | 2024-04-19 08:24 | Hospitalist Progress Note ---
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 She was found by her granddaughter incontinent of stool and urine on the day of presentation. She is being managed for the following: Severe Sepsis POA UTI Klebsiella bacteremia Acute discovertebral osteomyelitis L4-L5 b/l Psoas Abscess Patient was admitted after mechanical fall. She was found to have Klebsiella bacteremia; underwent treatment with iv cefazolin. Pt Underwent workup with MRI of thoracic spine, lumbar spine and brain MRI for altered mental status earlier in the hospitalization; no acute finding were seen. MRCP did not show any concern for cholangitis EEG showed generalized background slowing --Patient continued to report lower back pain for which she underwent lumbar MRI on 04/02; found to have acute discovertebral osteomyelitis at L4/L5. --CT abdomen and pelvis showed right psoas collection of 3 X 1.9cm, left psoas fluid collection of 2 X 1.4 cm. Prior hospitalist discussed with infectious disease on 04/05; recommend cefazolin 2 g every 8 hours; until May 14, 2024. Will need repeat MRI of the spine in 4 weeks after discharge. BMP, CBC every week. Need to follow-up with infectious disease in 8 to 12 weeks. PICC line placed -- Continue IV cefazolin Plan to discharge to rehab facility as able Continue antibiotics as recommended by infectious disease 04/18/2024 - Pt became hypotensive SBP in 70s, hypothermic with temp. 34.5C. Blood cultx ordered. cefepime, daptomycin ordered. stat CXR ordered. CT abd/ pelvis w/o contrast ordered. Midodrine ordered. Pt was transferred to ICU for close monitoring, management, and pressor support. 04/19 Pt continues to require pressor support. Liver, renal failure. MELD score 39. INR 4.1 Cr 2.2. Minimal urine outpt. Hyperkalemic. Prognosis is poor. 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 Alcoholic cirrhosis: Alcohol use disorder Likely hepatic encephalopathy due to cirrhosis- resolved Anasarca --Last EGD 2012 - no esophageal or gastric varices, mild portal gastropathy. Admitting LFT elevated --Recommend patient cease all alcohol use. Low-sodium diet. Avoid hepatotoxic's. --Avoid hepatotoxic agents as able --Reorient frequently to minimize any delirium Continue lactulose to have 3-4 good bowel movements per day Continue on rifaximin Needs outpatient EGD, colonoscopy Needs follow-up with hepatology as outpatient Monitor LFTs Appreciate GI input Titrate lactulose for 2-3 good bowel movements per day Started on Lasix ( on 04/06) and spironolactone( on 04/07) as patient has significant pitting edema bilaterally Aldactone held for now Appreciate nephrology input Monitor volume status, daily weight, I's and O's, renal function closely Continue IV diuresis per nephrology 04/19/24 MELD score 39 - 52.9% estimated 3-months mortality. As above, prognosis is poor. Hyperkalemia Likely due to JOSSUE Hold potassium supplements Monitor electrolytes closely Demand ischemia: trop mildly elevated Likely demand ischemia 2/2 acute illness. Hyponatremia Likely due to volume overload Monitor sodium levels closely Sodium 130 today Portal vein thrombosis: Coumadin on hold hold Has significant thrombocytopenia INR 4.1 today Compression fracture of body of thoracic vertebra: Compression fracture of lumbar vertebra: CT shows compression fractures T11-L1 MRI thoracic and lumbar above Orthopedic spine evaluated, no brace, She should lift no more than 5 pounds. C/w pain Mx. P/OT. Metatarsal fracture: Left foot XR shows: Mildly angulated transverse fractures at the necks of the second through fourth metatarsals. Ortho evaled, no sx Ix, recommends post op shoe for weight bearing x 1 month. no f/u needed per ortho. Acute on chronic anemia Subacute to chronic intramuscular hematomas H/O abdominal wall hematoma S/P PRBCs Monitor H&H and transfuse as needed Monitor CBC Hgb 6.9 on 04/18 -> s/p 1 unit of pRBC (04/18/24) Denies any bleeding issues currently Acute kidney injury Likely due to diuretics Monitor renal function Avoid nephrotoxic agents as able Appreciate nephrology input Cr 2.2 today Nephrology following closely DVT Px: INR therapeutic Hold Coumadin Code Status DNI/DNR Disposition Rehab as able Admission and Anticipated Discharge Date Admission Date: March 16, 2024 Subjective Patient seen in follow up of Klebsiella bacteremia, vert. disc osteo, etc., then with JOSSUE, anemia Hgb 6.9 yesterday AM -> s/p 1 unit of pRBC ordered Pt became hypotensive and hypothermic PM yesterday -> abx broadened to cefepime and dapto, transferred to ICU Requiring vasopressor support Still very weak but otherwise denies any fever, chills, chest pain, shortness of breath or abdominal pain Cr increased, nephrology also following MELD score 39 Prognosis is guarded Review of Systems Review of Systems: All systems reviewed & are unremarkable except as noted in Subjective Physical Exam Physical Exam: General Appearance:Obese, Ill appearing Head: normocephalic, Atraumatic Eyes: normal inspection, EOMI, +Icteric Neck: supple Respiratory/Chest: Normal breath sounds, CTA, No accessory muscle use Cardiovascular: S1, S2, No murmur Abdomen/GI:Soft, Non tender, +Protuberant, Bowel sounds present Extremities/Musculoskeletal: 2+LE edema (mostly hips, thighs) Neurologic/Psych: Alert, awake, answers simple questions appropriately Skin: warm,+Jaundice, + Multiple Ecchymosis Results & Data Results & Data Vital Signs (Past 12 Hours) Vital Signs Temp Pulse Resp BP Pulse Ox O2 Del Method 04/19/24 07:45 107/51 L 04/19/24 07:45 107/51 L 04/19/24 07:45 36.4 C L 66 12 94 04/19/24 07:31 113/58 L 04/19/24 07:06 36.4 C L 64 17 95 Room Air 04/19/24 07:00 106/48 L 04/19/24 06:30 36.4 C L 66 14 105/44 L 97 Room Air 04/19/24 06:15 36.4 C L 66 14 106/53 L 97 Room Air 04/19/24 06:00 36.4 C L 67 12 97/49 L 96 Room Air 04/19/24 05:30 36.4 C L 66 15 103/49 L 97 Room Air 04/19/24 05:00 36.5 C 70 16 124/50 L 96 Room Air, BiPAP 04/19/24 04:45 63 104/48 L 04/19/24 04:30 65 103/53 L 04/19/24 04:15 36.4 C L 72 17 108/67 96 Room Air 04/19/24 04:00 64 13 107/47 L 96 Room Air 04/19/24 03:45 63 93/49 L 04/19/24 03:30 36.3 C L 68 16 103/51 L 95 Room Air 04/19/24 03:15 71 109/54 L 04/19/24 03:00 36.3 C L 64 17 103/63 97 Room Air 04/19/24 02:45 69 113/60 04/19/24 02:15 73 99/55 L 04/19/24 02:00 36.4 C L 66 14 95/54 L 96 Room Air 04/19/24 01:45 67 87/59 L 04/19/24 01:30 68 111/50 L 04/19/24 01:15 70 104/52 L 04/19/24 01:00 36.4 C L 74 12 103/59 L 96 Room Air 04/19/24 00:45 65 102/46 L 04/19/24 00:30 36.4 C L 69 14 93/62 L 95 Room Air 04/19/24 00:15 62 89/70 L 04/19/24 00:00 36.4 C L 65 18 99/54 L 97 Room Air 04/18/24 23:45 68 96/50 L 04/18/24 23:30 36.3 C L 63 14 103/51 L 96 Room Air 04/18/24 23:15 70 112/59 L 04/18/24 23:14 68 04/18/24 23:00 36.2 C L 67 18 97/44 L 97 Room Air 04/18/24 22:45 71 92/57 L 04/18/24 22:30 65 12 94/47 L 95 Room Air 04/18/24 22:15 36 C L 65 92/48 L 04/18/24 22:00 35.9 C L 74 17 91/47 L 97 Room Air 04/18/24 21:15 74 93/49 L 04/18/24 21:00 35.7 C L 69 12 93/48 L 96 Room Air 04/18/24 20:45 67 93/46 L 96 Room Air 04/18/24 20:30 65 18 113/49 L 96 Nasal Cannula Laboratory Results 04/19/24 04/18/24 04/18/24 Range/Units 03:46 Unknown 23:31 WBC 18.46 H (4.8-10.8) K/ul RBC 2.55 L (4.20-5.40) M/uL Hgb 8.9 L (12.0-16.0) g/dl Hct 26.3 L (37.0-47.0) % MCV 103.1 H (80.0-100.0) fL MCH 34.9 H (25.0-34.0) pg MCHC 33.8 (32.0-36.0) g/dL RDW Std Deviation 85.6 H (36.4-46.3) fL RDW Coeff of [place] 23.9 H (11.5-14.5) % Plt Count 78 L (130-400) K/uL MPV 12.1 (9.4-12.4) fL Absolute Nucleated RBC 0.02 (0.00-0.12) K/uL Nucleated RBC % (auto) 0.1 % PT 39.6 H (9.0-12.0) Seconds INR 4.1 H (0.9-1.1) Sodium 130 L (136-145) mmol/L Potassium 5.2 H (3.5-5.1) mmol/L Chloride 102 (98-107) mmol/L Carbon Dioxide 15 L (21-32) mmol/L Anion Gap 13 H (3-11) BUN 76 H (6-23) mg/dl Creatinine 2.18 H D (0.6-1.2) mg/dl Est Cr Clr Drug Dosing 24.7 ml/min eGFR 22.92 BUN/Creatinine Ratio 34.9 H (10-20) Glucose 144 H (70-99(Fasting)) mg/dl Osmolality 305 H (280-300) mOsm/kg Calcium 8.1 L (8.6-10.3) mg/dl Phosphorus 6.4 H (2.5-4.9) mg/dl Magnesium 1.9 (1.7-2.4) mg/dl Total Bilirubin 11.5 H (0.2-1.0) mg/dl AST 145 H (13-39) U/L ALT < 3 L (7-52) U/L Alkaline Phosphatase 215 H (34-104) U/L Ammonia 23.0 (18-72) umol/L Total Protein 5.4 L (6.0-8.3) gm/dl Albumin 1.5 L (3.4-5.0) gm/dl Globulin 3.9 (2.5-4.0) gm/dl Albumin/Globulin Ratio 0.4 L (0.9-2) Random Cortisol mcg/dl Urine Color Dark Yellow Urine Appearance Turbid A (Clear) Urine pH 5.0 (4.5-7.5) Ur Specific [place] 1.017 (1.000-1.030) Urine Protein 1+ H (Negative) Urine Glucose (UA) Negative (Negative) Urine Ketones Negative (Negative) Urine Blood 2+ H (Negative) Urine Nitrite Positive A (Negative) Urine Bilirubin 3+ H (Negative) Urine Urobilinogen Negative (Negative) Ur Leukocyte Esterase 2+ H (Negative) Urine WBC (Auto) 21-50 H (0-5) /hpf Urine RBC (Auto) >20 H (0-2) /hpf U Hyaline Cast (Auto) >20 H (0-2) /lpf U Epithel Cells (Auto) 11-20 H (0-2) /hpf Urine Bacteria (Auto) 2+ H (None Seen) Calcium Oxalate Crystal Present A (None Prsent) Urine Osmolality 330 L (500-800) mOsm/kg Ur Random Creatinine 55.8 mg/dl Ur Random Sodium 29 mmol/L Ur Random Potassium 54.1 mmol/L Ur Random Chloride 29 mmol/L Blood Type Antibody Screen Crossmatch 04/18/24 04/18/24 Range/Units 16:36 10:57 WBC (4.8-10.8) K/ul RBC (4.20-5.40) M/uL Hgb (12.0-16.0) g/dl Hct (37.0-47.0) % MCV (80.0-100.0) fL MCH (25.0-34.0) pg MCHC (32.0-36.0) g/dL RDW Std Deviation (36.4-46.3) fL RDW Coeff of [place] (11.5-14.5) % Plt Count (130-400) K/uL MPV (9.4-12.4) fL Absolute Nucleated RBC (0.00-0.12) K/uL Nucleated RBC % (auto) % PT (9.0-12.0) Seconds INR (0.9-1.1) Sodium (136-145) mmol/L Potassium (3.5-5.1) mmol/L Chloride (98-107) mmol/L Carbon Dioxide (21-32) mmol/L Anion Gap (3-11) BUN (6-23) mg/dl Creatinine (0.6-1.2) mg/dl Est Cr Clr Drug Dosing ml/min eGFR BUN/Creatinine Ratio (10-20) Glucose (70-99(Fasting)) mg/dl Osmolality (280-300) mOsm/kg Calcium (8.6-10.3) mg/dl Phosphorus (2.5-4.9) mg/dl Magnesium (1.7-2.4) mg/dl Total Bilirubin (0.2-1.0) mg/dl AST (13-39) U/L ALT (7-52) U/L Alkaline Phosphatase (34-104) U/L Ammonia (18-72) umol/L Total Protein (6.0-8.3) gm/dl Albumin (3.4-5.0) gm/dl Globulin (2.5-4.0) gm/dl Albumin/Globulin Ratio (0.9-2) Random Cortisol 8.36 mcg/dl Urine Color Urine Appearance (Clear) Urine pH (4.5-7.5) Ur Specific [place] (1.000-1.030) Urine Protein (Negative) Urine Glucose (UA) (Negative) Urine Ketones (Negative) Urine Blood (Negative) Urine Nitrite (Negative) Urine Bilirubin (Negative) Urine Urobilinogen (Negative) Ur Leukocyte Esterase (Negative) Urine WBC (Auto) (0-5) /hpf Urine RBC (Auto) (0-2) /hpf U Hyaline Cast (Auto) (0-2) /lpf U Epithel Cells (Auto) (0-2) /hpf Urine Bacteria (Auto) (None Seen) Calcium Oxalate Crystal (None Prsent) Urine Osmolality (500-800) mOsm/kg Ur Random Creatinine mg/dl Ur Random Sodium mmol/L Ur Random Potassium mmol/L Ur Random Chloride mmol/L Blood Type O Positive Antibody Screen NEGATIVE Crossmatch See Detail Medications Administered Current Inpatient Medications Acetaminophen (Acetaminophen 500 Mg Tab) 500 mg PO Q6H PRN PRN Reason: fever/pain Stop: 05/05/24 21:02 Last Admin: 04/10/24 20:53 Dose: 500 mg Folic Acid (Folic Acid 1 Mg Tab) 1 mg PO QAM [facility] Stop: 06/09/24 08:59 Last Admin: 04/18/24 08:36 Dose: 1 mg Cefazolin Sodium (Ancef 2000mg) 2,000 mg in 15 mls @ 3.75 mls/min IV Q8H MIN Stop: 05/17/24 15:59 Last Admin: 04/18/24 08:37 Dose: 3.75 mls/min Cefepime HCl (Maxipime 2000mg) 1,000 mg in 10 mls @ 5 mls/min IV Q12H [facility] Stop: 04/21/24 02:59 Last Admin: 04/19/24 02:13 Dose: 5 mls/min Norepinephrine Bitartrate (Levophed/D5w) 4 mg in 250 mls @ 21.578 mls/hr IV .[id number] [facility]; Protocol Stop: 05/18/24 16:59 Last Admin: 04/19/24 07:26 Dose: 0.06 mcg/kg/min, 21.6 mls/hr Hydrocortisone Sodium (Succinate 50 mg/ Syringe) 1 mls @ 4 mls/min IV Q6 [facility] Stop: 05/19/24 00:00 Last Admin: 04/19/24 05:05 Dose: 4 mls/min Vasopressin 20 units/ Sodium (Chloride) 101 mls @ 12.12 mls/hr IV .Q8H20M MIN Stop: 05/18/24 18:14 Last Infusion: 04/19/24 07:08 Dose: 0.04 unit/min, 12.1 mls/hr Pantoprazole Sodium 40 mg/ (Syringe) 10 mls @ 5 mls/min IV BID [facility] Stop: 05/18/24 18:14 Last Admin: 04/18/24 19:12 Dose: 5 mls/min Lactulose (Lactulose 200gm/700ml Wtr Enema) 200 gm ME DAILY PRN PRN Reason: Hyperammonia Stop: 05/18/24 08:59 Last Admin: 04/17/24 18:32 Dose: 200 gm Lidocaine (Lidocaine 5% 1 Patch) 1 patch TD QAM [facility] Stop: 05/11/24 05:34 Last Admin: 04/18/24 08:36 Dose: 1 patch Magnesium Chloride (Magnesium Chloride W/Calcium 64mg Delayed Rel Tab) 64 mg PO BID [facility] Stop: 05/14/24 09:29 Last Admin: 04/15/24 08:18 Dose: 64 mg Melatonin (Melatonin 3 Mg Tab) 3 mg PO HS PRN PRN Reason: Sleep Stop: 05/18/24 01:20 Metoprolol Tartrate (Metoprolol Tartrate 1 Mg/Ml Vial) 2.5 mg IV Q6 PRN PRN Reason: Tachycardia HR>130 Stop: 05/13/24 17:59 Miconazole Nitrate (Miconazole Nitrate Powder 85 Gm) 1 appln EXT PRN PRN PRN Reason: Affected Skin Folds Stop: 05/05/24 01:11 Last Admin: 04/13/24 01:01 Dose: 1 appln Midodrine (Midodrine Hcl 2.5 Mg Tab) 5 mg PO TID@0800,1200,1700 [facility] Stop: 05/18/24 16:59 Last Admin: 04/19/24 07:26 Dose: 5 mg Olanzapine (Olanzapine 10 Mg/2.1 Ml Sdv) 5 mg IM Q6H PRN PRN Reason: Agitation Stop: 05/02/24 00:23 Last Admin: 04/02/24 00:50 Dose: 5 mg Rifaximin (Rifaximin 550 Mg Tablet) 550 mg PO BID [facility] Stop: 04/19/24 20:59 Last Admin: 04/18/24 21:25 Dose: 550 mg Sodium Zirconium Cyclosilicate (Sodium Zirconium Cyclosilicate 10 Gm Packet) 10 gm PO DAILY@1100 [facility] Stop: 05/19/24 10:59 Thiamine HCl (Thiamine Hcl 100 Mg Tab) 100 mg PO QAM [facility] Stop: 05/11/24 08:59 Last Admin: 04/18/24 08:36 Dose: 100 mg
[2024-04-19] MEDS: MAGNESIUM SULFATE / D5W 1 GM/100 ML BAG IV ONE (09:45)
[2024-04-19 10:13] LABS: Creatine Kinase 17 U/L (26-192)
[2024-04-19] MEDS: SODIUM ZIRCONIUM CYCLOSILICATE 10 GM PACKET PO SCH (10:29)
--- NOTE | 2024-04-19 10:54 | Nephrology Progress Note ---
Date of Service April 19, 2024 Assessment & Plan (1) JOSSUE (acute kidney injury): Plan: worsening JOSSUE in the setting of now pressor dependent hypotension. meets stage 3 JOSSUE criteria based on UOP. we have paused obligate diuresis despite massive volume overload d/t hypotension; anemia seems stable w/ hgb at 8.9 this am. also contributing could be sepsis from osteomyelitis not present at admission but emerging late last month along w/ BL psoas abscesses creatinine was at/near baseline 0.9 until 04/10 when it went to 1.1, then up to 1.3 04/11. now creatinine has been rising for the last few days and is up to 2.2 today and more concerning she is oliguric. 15 minute discussion w/ pt and family about how she is not a dialysis candidate should need for dialysis arise >> d/t hypotension, risk for bleeding; they seem accepting of this currently >continue pressor support -hold lasix -agree w/ trial of albumin resuscitation >>continue strict I/O -continue FR 1.5L -potassium held; may increase w/o lasix -daily weights -daily bmp >> f/u pending cxs Admission and Anticipated Discharge Date Admission Date: March 16, 2024 Subjective seen on rounds at about 1030; moved to icu yesterday d/t hypotension > on 2 pressors w/ some confusion when I saw her. granddaughter and 2 sisters at bedside. no sob; no change in severe oozing /weeping from legs. c/o sharp pain jonelle down L leg w/ flex/extend foot; c/o severe fatigue. UOP 125 mL 11 hrs overnight and 75 mL from 0600-11A. Review of Systems 2 Review of Systems: All systems reviewed & are unremarkable except as noted in Subjective Physical Exam 2 Constitutional: well developed, well nourished, + altered mental status, + frail appearing, + disheveled and + malnourished; no acute distress Eyes: EOM intact bilaterally; sclerae not anicteric ENMT: Mouth: + muffled voice and + dry oral mucous membranes Respiratory: normal respiratory effort Auscultation: lungs clear to auscultation bilaterally, + diminished lung sounds and + rhonchi (occasional); no crackles Cardiovascular: Rate/Rhythm: regular rate and regular rhythm Extremities: + edema (3+ dependent ) Musculoskeletal: Extremities: strength 5/5 throughout Skin: no rashes, warm and dry Results & Data Vital Signs (Past 12 Hours) Vital Signs Temp Pulse Resp BP Pulse Ox O2 Del Method 04/19/24 09:00 36.6 C 71 16 118/50 L 98 04/19/24 08:28 65 04/19/24 07:45 107/51 L 04/19/24 07:45 107/51 L 04/19/24 07:45 36.4 C L 66 12 94 04/19/24 07:31 113/58 L 04/19/24 07:06 36.4 C L 64 17 95 Room Air 04/19/24 07:00 106/48 L 04/19/24 06:30 36.4 C L 66 14 105/44 L 97 Room Air 04/19/24 06:15 36.4 C L 66 14 106/53 L 97 Room Air 04/19/24 06:00 36.4 C L 67 12 97/49 L 96 Room Air 04/19/24 05:30 36.4 C L 66 15 103/49 L 97 Room Air 04/19/24 05:00 36.5 C 70 16 124/50 L 96 Room Air, BiPAP 04/19/24 04:45 63 104/48 L 04/19/24 04:30 65 103/53 L 04/19/24 04:15 36.4 C L 72 17 108/67 96 Room Air 04/19/24 04:00 64 13 107/47 L 96 Room Air 04/19/24 03:45 63 93/49 L 04/19/24 03:30 36.3 C L 68 16 103/51 L 95 Room Air 04/19/24 03:15 71 109/54 L 04/19/24 03:00 36.3 C L 64 17 103/63 97 Room Air 04/19/24 02:45 69 113/60 04/19/24 02:15 73 99/55 L 04/19/24 02:00 36.4 C L 66 14 95/54 L 96 Room Air 04/19/24 01:45 67 87/59 L 04/19/24 01:30 68 111/50 L 04/19/24 01:15 70 104/52 L 04/19/24 01:00 36.4 C L 74 12 103/59 L 96 Room Air 04/19/24 00:45 65 102/46 L 04/19/24 00:30 36.4 C L 69 14 93/62 L 95 Room Air 04/19/24 00:15 62 89/70 L 04/19/24 00:00 36.4 C L 65 18 99/54 L 97 Room Air 04/18/24 23:45 68 96/50 L 04/18/24 23:30 36.3 C L 63 14 103/51 L 96 Room Air 04/18/24 23:15 70 112/59 L 04/18/24 23:14 68 04/18/24 23:00 36.2 C L 67 18 97/44 L 97 Room Air Laboratory Results 04/19/24 03:46 04/19/24 03:46 Diagnostic Findings cT a/p reviewed; no acute process on noncon study
--- NOTE | 2024-04-19 11:17 | Electrocardiogram Report ---
Test Reason : Blood Pressure : */* mmHG Vent. Rate : 74 BPM Atrial Rate : 74 BPM P-R Int : 144 ms QRS Dur : 86 ms QT Int : 424 ms P-R-T Axes : 72 61 67 degrees QTcB Int : 470 ms Normal sinus rhythm Normal ECG When compared with ECG of 13-Apr-2024 16:43, Sinus rhythm now present Vent. rate has decreased by 46 bpm Confirmed by Meng Farias ([id number]) on 04/19/2024 11:17:05 AM Referred By: REFERRED SELF Confirmed By: Meng Farias
[2024-04-19] MEDS ORDERED: ALBUMIN 5% 250 ML IV SCH (16:00)
[2024-04-19] MEDS: ALBUMIN 25% 100 ML IV SCH (16:26)
[2024-04-20 04:25] LABS: Prothrombin Time 56.6 Seconds (9.0-12.0)
[2024-04-20 04:29] LABS: Hematocrit (blood only) 17.8 % (37.0-47.0); Hemoglobin 5.9 g/dl (12.0-16.0); Mean Corpuscular Hemoglobin 34.7 pg (25.0-34.0); Mean Corpuscular Hgb Conc 33.1 g/dL (32.0-36.0); Mean Corpuscular Volume 104.7 fL (80.0-100.0); Mean Platelet Volume 11.9 fL (9.4-12.4); Platelet Count 41 K/uL (130-400); RDW Coefficient of Variation 21.6 % (11.5-14.5); RDW Standard Deviation 78.6 fL (36.4-46.3)
[2024-04-20 04:41] LABS: Magnesium 2.1 mg/dl (1.7-2.4); Phosphorus 6.2 mg/dl (2.5-4.9)
[2024-04-20 04:45] LABS: INR 6.1 (0.9-1.1)
[2024-04-20 05:04] LABS: Hematocrit (blood only) 16.7 % (37.0-47.0); Hemoglobin 5.8 g/dl (12.0-16.0); Mean Corpuscular Hemoglobin 35.4 pg (25.0-34.0); Mean Corpuscular Hgb Conc 34.7 g/dL (32.0-36.0); Mean Corpuscular Volume 101.8 fL (80.0-100.0); Mean Platelet Volume 12.1 fL (9.4-12.4); Platelet Count 42 K/uL (130-400); RDW Coefficient of Variation 23.1 % (11.5-14.5); Red Blood Count 1.64 M/uL (4.20-5.40); White Blood Count 6.39 K/ul (4.8-10.8)
[2024-04-20 05:16] LABS: BUN Creatinine Ratio 32.7 (10-20); Calcium 8.6 mg/dl (8.6-10.3); Creatinine Clr Calc Pharmacy 18.9 ml/min; Potassium 4.7 mmol/L (3.5-5.1)
[2024-04-20 05:18] LABS: Anisocytosis Present; Echinocytes 1+; Immature Granulocytes # (auto) 0.08 K/uL (0.01-0.20); Immature Granulocytes % (auto) 1.3 %; Lymphocytes # (auto) 0.44 K/uL (1.20-3.40); Lymphocytes % (auto) 6.9 %; Macrocytosis Present; Monocytes # (auto) 0.31 K/uL (0.11-0.59); Monocytes % (auto) 4.9 %; Neutrophils # (auto) 5.56 K/uL (1.40-6.50); Neutrophils % (auto) 86.9 %; Polychromasia 2+
[2024-04-20 05:40] LABS: Prothrombin Time 60.7 Seconds (9.0-12.0)
[2024-04-20 05:46] LABS: INR 6.6 (0.9-1.1)
[2024-04-20 05:47] LABS: Hematocrit (blood only) 16.9 % (37.0-47.0); Hemoglobin 5.8 g/dl (12.0-16.0); Mean Corpuscular Hemoglobin 35.4 pg (25.0-34.0); Mean Corpuscular Hgb Conc 34.3 g/dL (32.0-36.0); Mean Platelet Volume 11.2 fL (9.4-12.4); Platelet Count 36 K/uL (130-400); RDW Coefficient of Variation 23.8 % (11.5-14.5); RDW Standard Deviation 85.1 fL (36.4-46.3); Red Blood Count 1.64 M/uL (4.20-5.40); White Blood Count 6.25 K/ul (4.8-10.8)
[2024-04-20 05:51] LABS: Anion Gap 14 (3-11); BUN Creatinine Ratio 33.7 (10-20); Blood Urea Nitrogen 92 mg/dl (6-23); Calcium 8.8 mg/dl (8.6-10.3); Carbon Dioxide 16 mmol/L (21-32); Chloride 100 mmol/L (98-107); Creatinine Clr Calc Pharmacy 19.6 ml/min; Glucose 159 mg/dl (70-99(Fasting)); Potassium 4.6 mmol/L (3.5-5.1); Sodium 130 mmol/L (136-145)
[2024-04-20] MEDS ORDERED: SODIUM CHLORIDE 0.9% 250 ML IV PRN (05:54)
[2024-04-20] MEDS: PHYTONADIONE 5 MG in DEXTROSE 5% 50 ML IV ONE (06:05)
[2024-04-20 07:41] LABS: Alanine Aminotransferase < 3 U/L (7-52); Albumin Level 2.8 gm/dl (3.4-5.0); Alkaline Phosphatase 138 U/L (34-104); Aspartate Aminotransferase 101 U/L (13-39); Bilirubin Direct 7.5 mg/dl (0-0.2); Bilirubin,Total 14.5 mg/dl (0.2-1.0); Total Protein 5.6 gm/dl (6.0-8.3)
--- NOTE | 2024-04-20 07:58 | Critical Care Progress Note ---
Date of Service April 20, 2024 Assessment & Plan (1) JOSSUE (acute kidney injury): (2) Bacteremia due to Klebsiella pneumoniae: (3) Cirrhosis: (4) Portal vein thrombosis: (5) Acute anemia: (6) Shock circulatory: (7) Increased ammonia level: (8) Psoas abscess: (9) Vertebral osteomyelitis: Plan Reason Critically Ill: 78-year-old female was admitted to the hospital 03/16/2024 for metabolic encephalopathy and mechanical fall, Past medical history: Alcoholic liver cirrhosis, hypertension, portal vein thrombosis on warfarin During the course of the admission patient was found to have bacteremia Klebsiella, she was treated with antibiotics, she developed psoas abscesses and acute discovertebral osteomyelitis L4-L5 Transferred to ICU for shock Neuro - [facility] ICU: Negative Cardiac - -- Shock Combination of sepsis, random cortisol was only 8.36 Continue with antibiotics which has been broadened to addition of daptomycin Hydrocortisone added 04/18/2024 Respiratory - -- No acute issues Saturating well on room air GI - -- Liver cirrhosis Monitor ammonia Continue with lactulose and rifaximin -- Transaminitis with hyperbilirubinemia Elevated direct bili which is more than 50% of total bilirubin RENAL/LYTES - -- JOSSUE Follow-up urine lites, there is a possibility the patient is developing hepatorenal syndrome Monitor BUN/creatinine Avoid nephrotoxic medications Strict ins and outs --Hyponatremia Likely secondary to hypervolemia from cirrhosis Continue to monitor ENDO - -- ICU hypoglycemia protocol HEME - --Coagulopathy INR 6.6 with low fibrinogen Got vitamin K 5 mg a day -- Acute on chronic blood loss anemia CT abdomen pelvis 04/18/2024 does not show any clear signs of bleeding S/p 1 unit PRBC 04/18/2024 --Portal vein thrombosis Usually on warfarin at home ID - --Multiple bilateral psoas abscesses with L4-L5 discovertebral osteomyelitis On antibiotics as per ID -- Klebsiella bacteremia Pansensitive, was on cefazolin, changed to cefepime on 04/18/2024 Appreciated on 03/16/2024, repeat blood culture 03/30/2024 negative Got a dose of daptomycin on 04/18/2024 --E. coli UTI Pansensitive --DNR/DNI --Prophylaxis VTE: Warfarin on hold GI: Pantoprazole Lines: Right arm PICC Diet: Clear liquids Plan: In/out: +911, urine output 365 Patient getting 1 unit of PRBC today. Already got vitamin K 5 mg IV. It seems that patient is going into DIC from underlying issues. Patient's son as well as extended family were at bedside. I made them aware regarding the grave prognosis. If there is any worsening in patient's status then we would go towards comfort measures rather than prolong which is the inevitable. The son understands this. The goal is for the second son to come from [place], he should be here around 5 PM. Can with vasopressor support for the time being. Would not give any more transfusions moving forward. I have personally spent 43 minutes of critical care time in the direct management of this patient. This is a life/limb threatening event. This includes time spent evaluating patient, direct bedside care, chart review, placing orders, interpretation of diagnostic studies, discussion with consultants, patient, and family members, as well as other required patient management activities. This time is exclusive of all separately billable procedures, and teaching time and separate from and in addition to any other critical care service time. Admission and Anticipated Discharge Date Admission Date: March 16, 2024 Subjective Patient seen and examined at bedside. No acute distress, overnight patient hemoglobin dropped and she was given 1 unit of PRBC Her INR is also 6.6 today She was more alert and answer questions appropriately She was on 0.11 of Levophed and 0.04 of vasopressin She denies any abdominal pain, no chest pain, no shortness of breath She was saturating 94-95% on room air Review of Systems 2 Review of Systems: All systems reviewed & are unremarkable except as noted in Subjective Physical Exam 2 Physical Exam: Constitutional: No acute distress HEENT: EOMI, PERRLA, scleral icterus Respiratory system: Good air entry bilaterally, no wheeze, no rhonchi, mild crackles bilateral lower lobes CVS: S1-S2 positive, positive 2 out of 6 systolic murmur appreciated best at apex Abdomen: Soft, nontender, nondistended, positive bowel sounds x4, obese Extremities: +2 pulses bilaterally radialis/ dorsalis pedis, no cyanosis, +3 pitting edema bilateral lower extremity Neuro: Awake alert oriented to only self only Psych: Normal mood and affect G/U: Heller catheter Skin: no rashes, warm and dry Lymphatic: no cervical or axillary lymphadenopathy Results & Data Results & Data Vital Signs (Past 12 Hours) Vital Signs Temp Pulse Resp BP Pulse Ox 04/20/24 07:15 35.7 C L 88 18 96/56 L 95 04/20/24 06:45 35.3 C L 89 15 99/45 L 94 04/20/24 06:37 103/43 L 04/20/24 06:36 35.3 C L 91 H 18 96 04/20/24 06:30 35.2 C L 87 16 95 04/20/24 06:30 35.2 C L 81 17 103/43 L 96 04/20/24 06:27 35.2 C L 86 17 95 04/20/24 06:16 108/46 L 04/20/24 06:14 35.2 C L 80 17 82/44 L 94 04/20/24 05:57 35.0 C L 85 16 96 04/20/24 05:45 35.0 C L 79 15 95 04/20/24 05:31 108/55 L 04/20/24 05:21 34.8 C L 85 18 97 04/20/24 05:18 34.8 C L 86 15 96 04/20/24 05:15 99/51 L 04/20/24 05:00 102/57 L 04/20/24 04:45 34.9 C L 83 15 97 04/20/24 04:36 35.0 C L 83 16 121/58 L 98 04/20/24 04:24 35.1 C L 83 18 98 04/20/24 04:15 35.2 C L 74 15 115/56 L 98 04/20/24 04:00 35.2 C L 73 20 86/51 L 97 04/20/24 03:54 35.2 C L 84 16 97 04/20/24 03:30 35.3 C L 83 17 102/55 L 95 04/20/24 03:15 35.3 C L 80 15 102/67 98 04/20/24 03:00 82/59 L 04/20/24 02:48 35.4 C L 75 14 97 04/20/24 02:45 102/60 04/20/24 02:33 35.5 C L 81 15 99 04/20/24 02:30 35.5 C L 82 13 108/60 100 04/20/24 02:15 35.5 C L 82 14 107/41 L 99 04/20/24 02:03 35.6 C L 83 15 112/52 L 98 04/20/24 01:54 35.7 C L 63 17 100 04/20/24 01:33 35.8 C L 81 14 97/62 L 99 04/20/24 01:15 35.9 C L 71 16 107/43 L 100 04/20/24 01:08 117/46 L 04/20/24 01:01 93/47 L 04/20/24 01:00 35.9 C L 74 16 100 04/20/24 00:57 35.9 C L 73 14 100 04/20/24 00:46 92/42 L 04/20/24 00:42 35.9 C L 68 18 04/20/24 00:30 36.0 C L 73 17 90/65 L 100 04/20/24 00:24 36.1 C L 76 17 97 04/20/24 00:15 94/39 L 04/20/24 00:12 36.1 C L 73 20 92 04/20/24 00:09 36.2 C L 70 14 100/41 L 100 04/19/24 23:57 36.2 C L 70 14 100 04/19/24 23:48 36.3 C L 71 15 102/41 L 94 04/19/24 23:36 36.3 C L 72 16 99/39 L 100 04/19/24 23:30 67 04/19/24 23:24 36.3 C L 70 17 91 04/19/24 23:15 103/46 L 04/19/24 23:12 36.4 C L 68 19 100 04/19/24 23:00 36.5 C 68 15 105/42 L 100 04/19/24 22:30 82/50 L 04/19/24 22:27 36.7 C 74 17 97 04/19/24 22:21 36.8 C 73 16 95 04/19/24 22:15 102/44 L 04/19/24 22:00 103/44 L 04/19/24 21:57 36.9 C 91 H 20 98 04/19/24 21:45 107/46 L 04/19/24 21:42 36.9 C 82 16 94 04/19/24 21:30 97/47 L 04/19/24 21:15 105/42 L 04/19/24 21:09 36.8 C 72 13 93 04/19/24 21:03 36.8 C 70 12 104/48 L 93 04/19/24 20:57 36.8 C 71 12 95 04/19/24 20:30 36.6 C 65 12 94/47 L 92 04/19/24 20:03 36.5 C 68 11 L 104/44 L 92 Laboratory Results 04/20/24 05:20 04/20/24 05:20 Coding Level of Care Code 56478 CRITICAL CARE 1ST 30-74M Diagnoses JOSSUE (acute kidney injury) N17.9 Bacteremia due to Klebsiella pneumoniae R78.81; B96.1 Cirrhosis K74.60 Hepatic cirrhosis type: unspecified hepatic cirrhosis Portal vein thrombosis I81 Acute anemia D64.9 Shock circulatory R57.9 Increased ammonia level R79.89 Psoas abscess K68.12 Vertebral osteomyelitis M46.20 (3) Cirrhosis Hepatic cirrhosis type: unspecified hepatic cirrhosis
[2024-04-20 08:51] VITALS: PULSE 95
[2024-04-20 08:56] VITALS: RESP 18; TEMP 97; O2SAT 95
--- NOTE | 2024-04-20 09:27 | Nephrology Progress Note ---
Date of Service April 20, 2024 Assessment & Plan (1) JOSSUE (acute kidney injury): Plan: worsening JOSSUE in the setting of now pressor dependent hypotension. meets stage 3 JOSSUE criteria based on UOP. we have paused obligate diuresis despite massive volume overload d/t hypotension; anemia seems stable w/ hgb at 8.9 this am. also contributing could be sepsis from osteomyelitis not present at admission but emerging late last month along w/ BL psoas abscesses creatinine was at/near baseline 0.9 until 04/10 when it went to 1.1, then up to 1.3 04/11. now creatinine has been rising for the last few days and is up to 2.2 today and more concerning she is oliguric. 15 minute discussion w/ pt and family about how she is not a dialysis candidate should need for dialysis arise >> d/t hypotension, risk for bleeding; they seem accepting of this currently >continue pressor support -hold lasix -agree w/ trial of albumin resuscitation >>continue strict I/O -continue FR 1.5L -potassium held; may increase w/o lasix -daily weights -daily bmp >> f/u pending cxs Admission and Anticipated Discharge Date Admission Date: March 16, 2024 Subjective pressors; undergoing 48 hrs albumin resuscitation; SBP 90-100s mostly Physical Exam 2 Constitutional: well developed, well nourished, + altered mental status, + frail appearing, + disheveled, comfortable and + malnourished; no acute distress Eyes: EOM intact bilaterally; sclerae not anicteric ENMT: Mouth: + muffled voice and + dry oral mucous membranes Respiratory: normal respiratory effort Auscultation: lungs clear to auscultation bilaterally, + diminished lung sounds and + rhonchi (occasional); no crackles Cardiovascular: Rate/Rhythm: regular rate and regular rhythm Extremities: + edema (3+ dependent ) Musculoskeletal: Extremities: strength 5/5 throughout Skin: no rashes, warm and dry Results & Data Vital Signs (Past 12 Hours) Vital Signs Temp Pulse Resp BP BP Pulse Ox 04/20/24 09:18 76/40 L 04/20/24 08:55 36.1 C L 18 106/56 L 95 04/20/24 08:15 35.8 C L 95 H 20 90/47 L 04/20/24 08:15 36.8 C 95 H 16 90/47 L 96 04/20/24 07:27 35.5 C L 89 17 92 04/20/24 07:15 103/50 L 04/20/24 07:15 35.7 C L 88 18 96/56 L 95 04/20/24 06:45 35.3 C L 89 15 99/45 L 94 04/20/24 06:37 103/43 L 04/20/24 06:36 35.3 C L 91 H 18 96 04/20/24 06:30 35.2 C L 87 16 95 04/20/24 06:30 35.2 C L 81 17 103/43 L 96 04/20/24 06:27 35.2 C L 86 17 95 04/20/24 06:16 108/46 L 04/20/24 06:14 35.2 C L 80 17 82/44 L 94 04/20/24 05:57 35.0 C L 85 16 96 04/20/24 05:45 35.0 C L 79 15 95 04/20/24 05:31 108/55 L 04/20/24 05:21 34.8 C L 85 18 97 04/20/24 05:18 34.8 C L 86 15 96 04/20/24 05:15 99/51 L 04/20/24 05:00 102/57 L 04/20/24 04:45 34.9 C L 83 15 97 04/20/24 04:36 35.0 C L 83 16 121/58 L 98 04/20/24 04:24 35.1 C L 83 18 98 04/20/24 04:15 35.2 C L 74 15 115/56 L 98 04/20/24 04:00 35.2 C L 73 20 86/51 L 97 04/20/24 03:54 35.2 C L 84 16 97 04/20/24 03:30 35.3 C L 83 17 102/55 L 95 04/20/24 03:15 35.3 C L 80 15 102/67 98 04/20/24 03:00 82/59 L 04/20/24 02:48 35.4 C L 75 14 97 04/20/24 02:45 102/60 04/20/24 02:33 35.5 C L 81 15 99 04/20/24 02:30 35.5 C L 82 13 108/60 100 04/20/24 02:15 35.5 C L 82 14 107/41 L 99 04/20/24 02:03 35.6 C L 83 15 112/52 L 98 04/20/24 01:54 35.7 C L 63 17 100 04/20/24 01:33 35.8 C L 81 14 97/62 L 99 04/20/24 01:15 35.9 C L 71 16 107/43 L 100 04/20/24 01:08 117/46 L 04/20/24 01:01 93/47 L 04/20/24 01:00 35.9 C L 74 16 100 04/20/24 00:57 35.9 C L 73 14 100 04/20/24 00:46 92/42 L 04/20/24 00:42 35.9 C L 68 18 04/20/24 00:30 36.0 C L 73 17 90/65 L 100 04/20/24 00:24 36.1 C L 76 17 97 04/20/24 00:15 94/39 L 04/20/24 00:12 36.1 C L 73 20 92 04/20/24 00:09 36.2 C L 70 14 100/41 L 100 04/19/24 23:57 36.2 C L 70 14 100 04/19/24 23:48 36.3 C L 71 15 102/41 L 94 04/19/24 23:36 36.3 C L 72 16 99/39 L 100 04/19/24 23:30 67 04/19/24 23:24 36.3 C L 70 17 91 04/19/24 23:15 103/46 L 04/19/24 23:12 36.4 C L 68 19 100 04/19/24 23:00 36.5 C 68 15 105/42 L 100 04/19/24 22:30 82/50 L 04/19/24 22:27 36.7 C 74 17 97 04/19/24 22:21 36.8 C 73 16 95 04/19/24 22:15 102/44 L 04/19/24 22:00 103/44 L 04/19/24 21:57 36.9 C 91 H 20 98 04/19/24 21:45 107/46 L 04/19/24 21:42 36.9 C 82 16 94 04/19/24 21:30 97/47 L Laboratory Results 04/20/24 05:20 04/20/24 05:20
[2024-04-20 11:01] VITALS: BP 93/51
[2024-04-20 11:36] LABS: Fibrinogen 88 mg/dl (184-400)
[2024-04-20] MEDS: rifAXIMin 550 MG TABLET PO SCH (11:54)
--- NOTE | 2024-04-20 12:22 | Communication Note ---
Date of Service: April 20, 2024 Stopped to see pt but she was receiving last rites at her request. heart rhythms and BP have been extremely labile; remains on 2 pressors. continues on albumin; creatinine uptrending; remains oliguric. prx grim. May be heading toward SCHEDULE ANN[facility] - waiting on family. Will follow peripherally.
[2024-04-20] MEDS: HYDROCORTISONE SOD 50 MG in SYRINGE 0 ML IV SCH (12:32)
[2024-04-20] MEDS ORDERED: Nursing to Pharmacy Communication SCH ×2 (13:45→15:15)
[2024-04-20] MEDS ORDERED: STAT IV Infusion **Titration per Protocol STA (14:35)
[2024-04-20] MEDS ORDERED: MoRPHine SULFATE 2 MG/ML CARP IV PRN (14:35)
[2024-04-20] MEDS ORDERED: ONDANSETRON INJ 2 MG/ML 2 ML VIAL IV PRN (14:35)
[2024-04-20] MEDS: GLYCOPYRROLATE 0.2 MG/ML VIAL IV PRN (14:46)
[2024-04-20] MEDS: MoRPHine SULF/NSS 100 MG/100 ML BAG IV SCH (14:46)
[2024-04-20] MEDS: GLYCOPYRROLATE 0.2 MG/ML VIAL ONE (15:15)
--- NOTE | 2024-04-20 17:07 | Hospitalist Progress Note ---
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 She was found by her granddaughter incontinent of stool and urine on the day of presentation. She is being managed for the following: Severe Sepsis POA UTI Klebsiella bacteremia Acute discovertebral osteomyelitis L4-L5 b/l Psoas Abscess Patient was admitted after mechanical fall. She was found to have Klebsiella bacteremia; underwent treatment with iv cefazolin. Pt Underwent workup with MRI of thoracic spine, lumbar spine and brain MRI for altered mental status earlier in the hospitalization; no acute finding were seen. MRCP did not show any concern for cholangitis EEG showed generalized background slowing --Patient continued to report lower back pain for which she underwent lumbar MRI on 04/02; found to have acute discovertebral osteomyelitis at L4/L5. --CT abdomen and pelvis showed right psoas collection of 3 X 1.9cm, left psoas fluid collection of 2 X 1.4 cm. Prior hospitalist discussed with infectious disease on 04/05; recommend cefazolin 2 g every 8 hours; until May 14, 2024. Will need repeat MRI of the spine in 4 weeks after discharge. BMP, CBC every week. Need to follow-up with infectious disease in 8 to 12 weeks. PICC line placed -- Continue IV cefazolin Continue antibiotics as recommended by infectious disease 04/18/2024 - Pt became hypotensive SBP in 70s, hypothermic with temp. 34.5C. Blood cultx ordered. cefepime, daptomycin ordered. stat CXR ordered. CT abd/ pelvis w/o contrast ordered. Midodrine ordered. Pt was transferred to ICU for close monitoring, management, and pressor support. 04/19 Pt continues to require pressor support. Liver, renal failure. MELD score 39. INR 4.1 Cr 2.2. Minimal urine outpt. Hyperkalemic. Prognosis is poor. Discussed w/ spiral binder. 04/20 Hgb 5.8 this AM, received unit of pRBC however Hgb unchanged. RN reports epistaxis. INR 6.1. Cr 2.8. Fibrinogen obtained and low at 88. Multiorgan failure, coagulopathy Poor prognosis discussed w/ pt and family and pt was made comfort care status Alcoholic cirrhosis: Alcohol use disorder Likely hepatic encephalopathy due to cirrhosis- resolved Anasarca --Last EGD 2012 - no esophageal or gastric varices, mild portal gastropathy. Admitting LFT elevated --Recommend patient cease all alcohol use. Low-sodium diet. Avoid hepatotoxic's. --Avoid hepatotoxic agents as able --Reorient frequently to minimize any delirium Continued lactulose to have 3-4 good bowel movements per day Continued on rifaximin outpatient EGD, colonoscopy recommended follow-up with hepatology as outpatient recommended Monitor LFTs Appreciate GI input Titrate lactulose for 2-3 good bowel movements per day Started on Lasix ( on 04/06) and spironolactone( on 04/07) as patient had significant pitting edema bilaterally Appreciate nephrology input Monitor volume status, daily weight, I's and O's, renal function closely IV diuresis managed by nephrology 04/19/24 MELD score 39 - 52.9% estimated 3-months mortality. As above, prognosis is poor. MELD score 40 - 71.3% estimated 3-months mortality. As above, prognosis is poor. As above, pt with multiorgan failure, coagulopathy, extremely poor prognosis - made comfort care status Hyperkalemia Likely due to JOSSUE Hold potassium supplements Monitor electrolytes closely Demand ischemia: trop mildly elevated Likely demand ischemia 2/2 acute illness. Hyponatremia Likely due to volume overload Monitor sodium levels closely Sodium 130 today Portal vein thrombosis: Coumadin on hold Has significant thrombocytopenia INR 6.1 today Compression fracture of body of thoracic vertebra: Compression fracture of lumbar vertebra: CT shows compression fractures T11-L1 MRI thoracic and lumbar above Orthopedic spine evaluated, no brace, She should lift no more than 5 pounds. C/w pain Mx. P/OT. Metatarsal fracture: Left foot XR shows: Mildly angulated transverse fractures at the necks of the second through fourth metatarsals. Ortho evaled, no sx Ix, recommends post op shoe for weight bearing x 1 month. no f/u needed per ortho. Acute on chronic anemia Subacute to chronic intramuscular hematomas H/O abdominal wall hematoma S/P PRBCs Monitor H&H and transfuse as needed Monitor CBC Hgb 6.9 on 04/18 -> s/p 1 unit of pRBC (04/18/24) Hgb 5.8 on 04/20 -received 1 unit of pRBC but Hgb unchanged. INR elevated at 6.1, fibrinogen down to 88. Coagulopathy. + epistaxis noted . Poor prognosis, as above Acute kidney injury Initially possibly due to diuretics, now poss. hepatorenal syndrome, multiorgan failure Appreciate nephrology input Cr 2.8 today Nephrology following closely. Given very poor prognosis pt was made comfort care status Code Status DNI/DNR -> comfort care Admission and Anticipated Discharge Date Admission Date: March 16, 2024 Subjective Patient seen in follow up of Klebsiella bacteremia, vert. disc osteo, etc., then with JOSSUE, anemia Pt became hypotensive and hypothermic -> abx broadened to cefepime and dapto, transferred to ICU Requiring vasopressor support This AM Hgb 5.8 , received another unit of pRBC, however Hgb unchanged, INR 6.1, Cr 2.8 Fibrinogen obtained by ICU staff and low at 88 Continues to be hypothermic and hypotensive requiring vasopressor support --> spiral binder discussed very poor prognosis - pt was made comfort care Pt denies any discomfort or pain to me Family present at the bedside Review of Systems Review of Systems: All systems reviewed & are unremarkable except as noted in Subjective Physical Exam Physical Exam: General Appearance:Obese, Ill appearing Head: normocephalic, Atraumatic Eyes: normal inspection, EOMI, +Icteric Neck: supple Respiratory/Chest: + crackles, No accessory muscle use Cardiovascular: S1, S2, No murmur Abdomen/GI:Soft, Non tender, +Protuberant, Bowel sounds present Extremities/Musculoskeletal: 2+LE edema (mostly hips, thighs) Neurologic/Psych: Awake, answers simple questions appropriately, moves extremities Skin: warm,+Jaundice, + Multiple Ecchymosis Results & Data Results & Data Vital Signs (Past 12 Hours) Vital Signs Temp Pulse Resp BP BP Pulse Ox 04/20/24 11:00 93/51 L 04/20/24 09:28 88/41 L 04/20/24 09:18 76/40 L 04/20/24 08:55 36.1 C L 18 106/56 L 95 04/20/24 08:15 35.8 C L 95 H 20 90/47 L 04/20/24 08:15 36.8 C 95 H 16 90/47 L 96 04/20/24 07:27 35.5 C L 89 17 92 04/20/24 07:15 103/50 L 04/20/24 07:15 35.7 C L 88 18 96/56 L 95 04/20/24 06:45 35.3 C L 89 15 99/45 L 94 04/20/24 06:37 103/43 L 04/20/24 06:36 35.3 C L 91 H 18 96 04/20/24 06:30 35.2 C L 87 16 95 04/20/24 06:30 35.2 C L 81 17 103/43 L 96 04/20/24 06:27 35.2 C L 86 17 95 04/20/24 06:16 108/46 L 04/20/24 06:14 35.2 C L 80 17 82/44 L 94 04/20/24 05:57 35.0 C L 85 16 96 04/20/24 05:45 35.0 C L 79 15 95 04/20/24 05:31 108/55 L 04/20/24 05:21 34.8 C L 85 18 97 04/20/24 05:18 34.8 C L 86 15 96 04/20/24 05:15 99/51 L 04/20/24 05:00 102/57 L Laboratory Results 04/20/24 04/20/24 04/20/24 Range/Units 10:03 05:20 04:36 WBC 6.25 (4.8-10.8) K/ul RBC 1.64 L (4.20-5.40) M/uL Hgb 5.8 L* (12.0-16.0) g/dl Hct 16.9 L* 16.7 L* (37.0-47.0) % MCV 103.0 H 101.8 H (80.0-100.0) fL MCH 35.4 H 35.4 H (25.0-34.0) pg MCHC 34.3 34.7 (32.0-36.0) g/dL RDW Std Deviation 85.1 H 81.0 H (36.4-46.3) fL RDW Coeff of [place] 23.8 H 23.1 H (11.5-14.5) % Plt Count 36 L 42 L (130-400) K/uL MPV 11.2 12.1 (9.4-12.4) fL Immature Gran % (Auto) 1.3 % Neut % (Auto) 86.9 % Lymph % (Auto) 6.9 % [place] % (Auto) 4.9 % Eos % (Auto) 0.0 % Baso % (Auto) 0.0 % Neut # (Auto) 5.56 (1.40-6.50) K/uL Lymph # (Auto) 0.44 L (1.20-3.40) K/uL [place] # (Auto) 0.31 (0.11-0.59) K/uL Eos # (Auto) 0.00 (0.00-0.50) K/uL Baso # (Auto) 0.00 (0.00-0.20) K/uL Immature Gran # (Auto) 0.08 (0.01-0.20) K/uL Polychromasia 2+ Anisocytosis Present Macrocytosis Present Echinocytes 1+ PT 60.7 H (9.0-12.0) Seconds INR 6.6 H* (0.9-1.1) Fibrinogen 88 L* (184-400) mg/dl Sodium 130 L (136-145) mmol/L Potassium 4.6 (3.5-5.1) mmol/L Chloride 100 (98-107) mmol/L Carbon Dioxide 16 L (21-32) mmol/L Anion Gap 14 H (3-11) BUN 92 H (6-23) mg/dl Creatinine 2.73 H (0.6-1.2) mg/dl Est Cr Clr Drug Dosing 19.6 ml/min eGFR 17.50 BUN/Creatinine Ratio 33.7 H (10-20) Glucose 159 H (70-99(Fasting)) mg/dl POC Glucose (70-99) mg/dl Calcium 8.8 (8.6-10.3) mg/dl Phosphorus (2.5-4.9) mg/dl Magnesium (1.7-2.4) mg/dl Total Bilirubin 14.5 H (0.2-1.0) mg/dl Direct Bilirubin 7.5 H (0-0.2) mg/dl AST 101 H (13-39) U/L ALT < 3 L (7-52) U/L Alkaline Phosphatase 138 H (34-104) U/L Ammonia 39.0 (18-72) umol/L Total Protein 5.6 L (6.0-8.3) gm/dl Albumin 2.8 L (3.4-5.0) gm/dl Blood Type Antibody Screen Crossmatch 04/20/24 04/20/24 04/20/24 Range/Units 04:36 04:36 03:45 WBC 6.39 6.70 D (4.8-10.8) K/ul RBC 1.64 L 1.70 L (4.20-5.40) M/uL Hgb 5.8 L* Cancelled 5.9 L* D (12.0-16.0) g/dl Hct Cancelled 17.8 L* (37.0-47.0) % MCV 104.7 H (80.0-100.0) fL MCH 34.7 H (25.0-34.0) pg MCHC 33.1 (32.0-36.0) g/dL RDW Std Deviation 78.6 H (36.4-46.3) fL RDW Coeff of [place] 21.6 H (11.5-14.5) % Plt Count 41 L (130-400) K/uL MPV 11.9 (9.4-12.4) fL Immature Gran % (Auto) % Neut % (Auto) % Lymph % (Auto) % [place] % (Auto) % Eos % (Auto) % Baso % (Auto) % Neut # (Auto) (1.40-6.50) K/uL Lymph # (Auto) (1.20-3.40) K/uL [place] # (Auto) (0.11-0.59) K/uL Eos # (Auto) (0.00-0.50) K/uL Baso # (Auto) (0.00-0.20) K/uL Immature Gran # (Auto) (0.01-0.20) K/uL Polychromasia Anisocytosis Macrocytosis Echinocytes PT 56.6 H (9.0-12.0) Seconds INR 6.1 H* (0.9-1.1) Fibrinogen (184-400) mg/dl Sodium 131 L (136-145) mmol/L Potassium 4.7 (3.5-5.1) mmol/L Chloride 100 (98-107) mmol/L Carbon Dioxide 17 L (21-32) mmol/L Anion Gap 14 H (3-11) BUN 93 H (6-23) mg/dl Creatinine 2.84 H D (0.6-1.2) mg/dl Est Cr Clr Drug Dosing 18.9 ml/min eGFR 16.69 BUN/Creatinine Ratio 32.7 H (10-20) Glucose 151 H (70-99(Fasting)) mg/dl POC Glucose (70-99) mg/dl Calcium 8.6 (8.6-10.3) mg/dl Phosphorus 6.2 H (2.5-4.9) mg/dl Magnesium 2.1 (1.7-2.4) mg/dl Total Bilirubin (0.2-1.0) mg/dl Direct Bilirubin (0-0.2) mg/dl AST (13-39) U/L ALT (7-52) U/L Alkaline Phosphatase (34-104) U/L Ammonia (18-72) umol/L Total Protein (6.0-8.3) gm/dl Albumin (3.4-5.0) gm/dl Blood Type Antibody Screen Crossmatch 04/19/24 04/19/24 04/18/24 Range/Units 23:37 17:55 10:57 WBC (4.8-10.8) K/ul RBC (4.20-5.40) M/uL Hgb (12.0-16.0) g/dl Hct (37.0-47.0) % MCV (80.0-100.0) fL MCH (25.0-34.0) pg MCHC (32.0-36.0) g/dL RDW Std Deviation (36.4-46.3) fL RDW Coeff of [place] (11.5-14.5) % Plt Count (130-400) K/uL MPV (9.4-12.4) fL Immature Gran % (Auto) % Neut % (Auto) % Lymph % (Auto) % [place] % (Auto) % Eos % (Auto) % Baso % (Auto) % Neut # (Auto) (1.40-6.50) K/uL Lymph # (Auto) (1.20-3.40) K/uL [place] # (Auto) (0.11-0.59) K/uL Eos # (Auto) (0.00-0.50) K/uL Baso # (Auto) (0.00-0.20) K/uL Immature Gran # (Auto) (0.01-0.20) K/uL Polychromasia Anisocytosis Macrocytosis Echinocytes PT (9.0-12.0) Seconds INR (0.9-1.1) Fibrinogen (184-400) mg/dl Sodium (136-145) mmol/L Potassium (3.5-5.1) mmol/L Chloride (98-107) mmol/L Carbon Dioxide (21-32) mmol/L Anion Gap (3-11) BUN (6-23) mg/dl Creatinine (0.6-1.2) mg/dl Est Cr Clr Drug Dosing ml/min eGFR BUN/Creatinine Ratio (10-20) Glucose (70-99(Fasting)) mg/dl POC Glucose 175 H 170 H (70-99) mg/dl Calcium (8.6-10.3) mg/dl Phosphorus (2.5-4.9) mg/dl Magnesium (1.7-2.4) mg/dl Total Bilirubin (0.2-1.0) mg/dl Direct Bilirubin (0-0.2) mg/dl AST (13-39) U/L ALT (7-52) U/L Alkaline Phosphatase (34-104) U/L Ammonia (18-72) umol/L Total Protein (6.0-8.3) gm/dl Albumin (3.4-5.0) gm/dl Blood Type O Positive Antibody Screen NEGATIVE Crossmatch See Detail Medications Administered Current Inpatient Medications Acetaminophen (Acetaminophen 500 Mg Tab) 500 mg PO Q6H PRN PRN Reason: fever/pain Stop: 05/05/24 21:02 Last Admin: 04/10/24 20:53 Dose: 500 mg Folic Acid (Folic Acid 1 Mg Tab) 1 mg PO QAM [facility] Stop: 06/09/24 08:59 Last Admin: 04/20/24 09:01 Dose: Not Given Glycopyrrolate (Glycopyrrolate 0.2 Mg/Ml Vial) 0.4 mg IV Q4H PRN PRN Reason: Rattling Secretions or Pulm Congestion Stop: 05/20/24 14:34 Last Admin: 04/20/24 14:46 Dose: 0.4 mg Cefepime HCl (Maxipime 2000mg) 1,000 mg in 10 mls @ 5 mls/min IV Q12H MIN Stop: 05/31/24 02:59 Last Admin: 04/20/24 14:56 Dose: Not Given Norepinephrine Bitartrate (Levophed/D5w) 4 mg in 250 mls @ 89.344 mls/hr IV .Q2H48M MIN; Protocol Stop: 05/18/24 16:59 Last Admin: 04/20/24 15:14 Dose: Not Given Vasopressin 20 units/ Sodium (Chloride) 101 mls @ 12.12 mls/hr IV .Q8H20M MIN Stop: 05/18/24 18:14 Last Infusion: 04/20/24 14:56 Dose: Infused Pantoprazole Sodium 40 mg/ (Syringe) 10 mls @ 5 mls/min IV BID [facility] Stop: 05/18/24 18:14 Last Admin: 04/20/24 09:02 Dose: 5 mls/min Albumin Human (Albumin 25%) 100 mls @ 50 mls/hr IV Q4H [facility]; Protocol Stop: 04/20/24 21:59 Last Admin: 04/20/24 14:56 Dose: Not Given Hydrocortisone Sodium (Succinate 50 mg/ Syringe) 1 mls @ 4 mls/min IV Q8H MIN Stop: 05/20/24 12:59 Last Admin: 04/20/24 12:32 Dose: 4 mls/min Morphine Sulfate (Morphine Sulf/Nss) 100 mg in 100 mls @ 2 mls/hr IV .Q50H [facility]; Protocol Stop: 05/04/24 14:44 Last Titration: 04/20/24 15:15 Dose: 2 mg/hr, 2 mls/hr Lactulose (Lactulose 200gm/700ml Wtr Enema) 200 gm CO DAILY PRN PRN Reason: Hyperammonia Stop: 05/18/24 08:59 Last Admin: 04/17/24 18:32 Dose: 200 gm Lidocaine (Lidocaine 5% 1 Patch) 1 patch TD QAM [facility] Stop: 05/11/24 05:34 Last Admin: 04/20/24 09:02 Dose: 1 patch Lorazepam (Lorazepam 2 Mg/1 Ml Vial) 0.5 mg IV Q4H PRN PRN Reason: Anxiety/Agitation Stop: 05/20/24 14:34 Melatonin (Melatonin 3 Mg Tab) 3 mg PO HS PRN PRN Reason: Sleep Stop: 05/18/24 01:20 Metoprolol Tartrate (Metoprolol Tartrate 1 Mg/Ml Vial) 2.5 mg IV Q6 PRN PRN Reason: Tachycardia HR>130 Stop: 05/13/24 17:59 Miconazole Nitrate (Miconazole Nitrate Powder 85 Gm) 1 appln EXT PRN PRN PRN Reason: Affected Skin Folds Stop: 05/05/24 01:11 Last Admin: 04/13/24 01:01 Dose: 1 appln Morphine Sulfate (Morphine Sulfate 2 Mg/Ml Carp) 2 mg IV Q4H PRN PRN Reason: Pain or Respiratory Distress Stop: 05/04/24 14:34 Morphine Sulfate (Morphine Bolus From Bag) 1 mg IV Q30M PRN PRN Reason: Comfort Care Parameters Stop: 05/04/24 14:34 Olanzapine (Olanzapine 10 Mg/2.1 Ml Sdv) 5 mg IM Q6H PRN PRN Reason: Agitation Stop: 05/02/24 00:23 Last Admin: 04/02/24 00:50 Dose: 5 mg Ondansetron HCl (Ondansetron Inj 2 Mg/Ml 2 Ml Vial) 4 mg IV Q4H PRN PRN Reason: Nausea &/or Vomiting Stop: 05/20/24 14:34 Rifaximin (Rifaximin 550 Mg Tablet) 550 mg PO BID [facility] Stop: 05/20/24 10:29 Last Admin: 04/20/24 11:54 Dose: Not Given Sodium Zirconium Cyclosilicate (Sodium Zirconium Cyclosilicate 10 Gm Packet) 10 gm PO DAILY@1100 [facility] Stop: 05/19/24 10:59 Last Admin: 04/20/24 11:54 Dose: Not Given Thiamine HCl (Thiamine Hcl 100 Mg Tab) 100 mg PO QAM [facility] Stop: 05/11/24 08:59 Last Admin: 04/20/24 09:02 Dose: Not Given
[2024-04-20] MEDS: LORazepam 2 MG/1 ML VIAL IV PRN (17:23)
[2024-04-20] MEDS: MoRPHine BOLUS from BAG IV PRN (17:53)
--- NOTE | 2024-04-20 21:13 | Death Pronouncement Note ---
Date of Service April 20, 2024 Pronouncement Note Admission Date Admission Date: March 16, 2024 Date and Time of Date of : 04/20/24 Time of : 20:55 PCOD Preliminary cause of : Septic shock Contributing Factors (1) Septic shock: (2) Cirrhosis: (3) Psoas abscess: (4) JOSSUE (acute kidney injury): Hospital Course Hospital Course: 78-year-old female was admitted to the hospital 03/16/2024 for metabolic encephal opathy and mechanical fall Past medical history: Alcoholic liver cirrhosis, hypertension, portal vein thrombosis on warfarin During the course of the admission patient was found to have bacteremia Kle bsiella, she was treated with antibiotics, she developed psoas abscesses and acute discovertebral osteomyelitis L4-L5 Plan was to continue treatment with antibiotics and supportive care and if worsening or not responding to therapy, transition to comfort care, as described in palliative note from 04/03/24. Patient was transferred to ICU on for worsening hypotension and organ dysfunction, she progressed to ACLF with and renal failure likley secondary to hepatorenal syndrome. She was made comfort care on 04/20/24 and passed at 2054. Family at bedside and appropriate grief response was noted. No autopsy requested. Summary Additional details: See above for abbreviated hospital course. Assessment: I presented to the patients room for evaluation following asystole noted on the monitor for 3 minutes and confirmed in 2 leads with optimum gain. Upon assessment, the patient was found to be in a terminal state. Pupils were fixed and dilated without response. No palpable pulses appreciated. No spontaneous breaths noted. Heart sounds were absent. No response to painful stimuli. Time of : 2054 as pronounced by myself. Family was present at bedside. Appropriate response to grief appreciated. Condolences provided. Questions were addressed and emotional support was provided. Patients primary service was contacted and made aware of patient demise. Pronouncement section of the Certificate was filled out and signed by myself. Cause of : Primary - Septic Shock Secondary - Cirrhosis Contributing Causes of - JOSSUE, Psoas abscess Please feel free to contact me with any questions regarding the above-mentioned course. Additional Data Attending physician: Malachi Valencia MD
--- NOTE | 2024-04-21 07:50 | Discharge Summary ---
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 history is limited from the patient, additional history obtained from ED documentation and review of outpatient PCP, GI, hematology records. Patient reports that 2 days ago she was going to the bathroom and the next thing she knew she was on the floor. She believes she may have lost consciousness for a short period of time. She is unsure how long she was on the floor. She was found by her granddaughter today confused and incontinent of stool and urine. EMS was called and patient was brought to the ED for further evaluation. In the ED, imaging shows T11-L1 compression fractures and left 2nd through 4th metatarsal fractures. Labs show WBC 16K, lactate 4.6, elevated LFTs. UA suggestive of possible UTI. Patient was given IVF, IV morphine, IV Zofran. Admission Exam Per Admitting Provider General Appearance:Obese, no apparent distress Head: normocephalic, Atraumatic Eyes: normal inspection, EOMI, Left Eye Post surgical dressing Neck: supple, Trachea midline Respiratory/Chest: Normal breath sounds, CTA, No accessory muscle use Cardiovascular: S1, S2, No murmur,+Tachycardia Abdomen/GI:Soft, Non tender, +Protuberant, Bowel sounds present Back: Tender, decreased ROM due to pain Extremities/Musculoskeletal:normal inspection, 1+ edema, L foot Echymosis Neurologic/Psych:AAOX2, grossly no focal neurological deficits Skin: normal color, warm Principal Diagnosis Severe Sepsis POA, Shock Klebsiella bacteremia Acute discovertebral osteomyelitis L4-L5 b/l Psoas Abscess Multiorgan failure (liver failure, renal failure, coagulopathy) Discharge Exam Pupils were fixed and dilated without response. No palpable pulses appreciated. No spontaneous breaths noted. Heart sounds were absent. No response to painful stimuli. Time of : 2054 Discharge Data Allergies Allergy/AdvReac Type Severity Reaction Status Date / Time Penicillins Allergy Severe UNKNOWN Verified 03/16/24 10:27 aspirin Allergy Intermediate HIVES Verified 03/16/24 10:27 Consultations 03/16/24 11:40 Consult Orthopedic Spine Surgery Routine Consult Orthopedic Surgery Routine 03/16/24 11:43 Consult Gastroenterology Routine 03/17/24 14:06 Consult Infectious Diseases Routine 03/29/24 12:53 Consult Neurology Routine 04/02/24 07:52 Consult Infectious Diseases Routine Consult Orthopedic Spine Surgery Routine 04/02/24 15:55 Consult Palliative Care Routine 04/13/24 07:36 Consult Nephrology Routine 04/18/24 17:32 Consult Electrical Solderer Routine Ordered Studies 03/16/24 07:13 CT abd pelvis IV con only Stat CT cervical spine wo con Stat CT chest diagnostic w con Stat CT facial bones wo con Stat CT head/brain wo con Stat CT lumbar spine w con Stat CT thoracic spine w con Stat 03/19/24 09:53 CT head/brain wo con Urgent 03/19/24 13:56 MRI Brain [MR brain wo con] Routine 03/21/24 00:10 MR lumbar spine wo con Routine MR thoracic spine wo con Routine 03/21/24 07:48 MR MRCP Urgent 03/28/24 14:45 CT head/brain wo con Urgent 03/28/24 14:48 US abdomen ltd ascites Routine 04/01/24 12:38 CT abd pelvis IV con only Urgent 04/02/24 00:00 MR lumbar spine wo/w con Routine 04/18/24 14:36 CT abd pelvis wo con Stat Hospital Course (1) Syncope: Plan Patient is a 78 yr female with PMH of alcoholic cirrhosis, portal venous thrombosis anticoagulated on Coumadin, HTN, 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 She was found by her granddaughter incontinent of stool and urine on the day of presentation. She is being managed for the following: Severe Sepsis POA UTI Klebsiella bacteremia Acute discovertebral osteomyelitis L4-L5 b/l Psoas Abscess Patient was admitted after mechanical fall. She was found to have Klebsiella bacteremia; underwent treatment with iv cefazolin. Pt Underwent workup with MRI of thoracic spine, lumbar spine and brain MRI for altered mental status earlier in the hospitalization; no acute finding were seen. MRCP did not show any concern for cholangitis EEG showed generalized background slowing --Patient continued to report lower back pain for which she underwent lumbar MRI on 04/02; found to have acute discovertebral osteomyelitis at L4/L5. --CT abdomen and pelvis showed right psoas collection of 3 X 1.9cm, left psoas fluid collection of 2 X 1.4 cm. Prior hospitalist discussed with infectious disease on 04/05; recommend cefazolin 2 g every 8 hours; until May 14, 2024. Will need repeat MRI of the spine in 4 weeks after discharge. BMP, CBC every week. Need to follow-up with infectious disease in 8 to 12 weeks. PICC line placed -- Continued IV cefazolin Continue antibiotics as recommended by infectious disease 04/18/2024 - Pt became hypotensive SBP in 70s, hypothermic with temp. 34.5C. Blood cultx ordered. cefepime, daptomycin ordered. stat CXR ordered. CT abd/ pelvis w/o contrast ordered. Midodrine ordered. Pt was transferred to ICU for close monitoring, management, and pressor support. 04/19 Pt continues to require pressor support. Liver, renal failure. MELD score 39. INR 4.1 Cr 2.2. Minimal urine outpt. Hyperkalemic. Prognosis is poor. Discussed w/ christian science practitioner. 04/20 Hgb 5.8 this AM, received unit of pRBC however Hgb unchanged. RN reports epistaxis. INR 6.1. Cr 2.8. Fibrinogen obtained and low at 88. Multiorgan failure, coagulopathy Poor prognosis discussed w/ pt and family and pt was made comfort care status Pt at 20:55 04/20/2024 Alcoholic cirrhosis: Alcohol use disorder Likely hepatic encephalopathy due to cirrhosis- resolved Anasarca --Last EGD 2012 - no esophageal or gastric varices, mild portal gastropathy. Admitting LFT elevated --Recommend patient cease all alcohol use. Low-sodium diet. Avoid hepatotoxic's. --Avoid hepatotoxic agents as able --Reorient frequently to minimize any delirium Continued lactulose to have 3-4 good bowel movements per day Continued on rifaximin outpatient EGD, colonoscopy recommended follow-up with hepatology as outpatient recommended Monitor LFTs Appreciate GI input Titrate lactulose for 2-3 good bowel movements per day Started on Lasix ( on 04/06) and spironolactone( on 04/07) as patient had significant pitting edema bilaterally Appreciate nephrology input Monitor volume status, daily weight, I's and O's, renal function closely IV diuresis managed by nephrology 04/19/24 MELD score 39 - 52.9% estimated 3-months mortality. As above, prognosis is poor. MELD score 40 - 71.3% estimated 3-months mortality. As above, prognosis is poor. As above, pt with multiorgan failure, coagulopathy, extremely poor prognosis - made comfort care status Hyperkalemia Likely due to JOSSUE Held potassium supplements Monitored electrolytes closely Demand ischemia: trop mildly elevated Likely demand ischemia 2/2 acute illness. Hyponatremia Likely due to volume overload Monitor sodium levels closely Sodium 130 Portal vein thrombosis: Coumadin on hold Has significant thrombocytopenia INR 6.1 today Compression fracture of body of thoracic vertebra: Compression fracture of lumbar vertebra: CT shows compression fractures T11-L1 MRI thoracic and lumbar above Orthopedic spine evaluated, no brace, She should lift no more than 5 pounds. C/w pain Mx. P/OT. Metatarsal fracture: Left foot XR shows: Mildly angulated transverse fractures at the necks of the second through fourth metatarsals. Ortho evaled, no sx Ix, recommends post op shoe for weight bearing x 1 month. no f/u needed per ortho. Acute on chronic anemia Subacute to chronic intramuscular hematomas H/O abdominal wall hematoma S/P PRBCs Monitor H&H and transfuse as needed Monitor CBC Hgb 6.9 on 04/18 -> s/p 1 unit of pRBC (04/18/24) Hgb 5.8 on 04/20 -received 1 unit of pRBC but Hgb unchanged. INR elevated at 6.1, fibrinogen down to 88. Coagulopathy. + epistaxis noted . Poor prognosis, as above Acute kidney injury Initially possibly due to diuretics, now poss. hepatorenal syndrome, multiorgan failure Appreciate nephrology input Cr 2.8 today Nephrology following closely. Given very poor prognosis pt was made comfort care status Code Status DNI/DNR -> comfort care Pt 04/20/24 at 20:55 Total Time Total Time Spent Total Time Spent (In Minutes): 40 Discharge Plan Discharge Items Patient Disposition: Other Date/Time: 04/20/24 20:55
== END 2024-04-20 22:23 | disposition expired | DRG 871 ==
LOC: ED 06:59 → SUATTDRO 10:30 → 2S 10:30 → 1E 04-18 16:01